=== PATIENT | male | born 1945 | race Caucasian/White ===

== ENCOUNTER 2019-03-08 12:09 | Observation (INO) | payer OTHER ==
[~2019-03-08] VITALS: Ht 172.7 cm; Wt 68.0 kg
--- OUTSIDE RECORDS SUMMARY | 2019-03-08 12:15 | XMS REPORT ---
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 Allergies, Adverse Reactions, Alerts Allergy Name Allergy Type Status Severity Reaction(s) Onset Date Inactive Date Treating Clinician Comments Penicillins DA Active [place] 2016-01-02 00:00:00 adhesive DA Active U 2016-01-02 00:00:00 levofloxacin DA Active U 2016-01-02 00:00:00 Medications This patient has no known medications. Encounters Start Date/Time End Date/Time Encounter Type Admission Type Attending Clinicians Care Facility Care Department Encounter ID 2019-02-09 00:57:35 Inpatient [facility] [id number] 2019-01-23 13:25:34 Inpatient [facility] [id number] 2019-01-21 17:51:54 Inpatient [facility] [id number] 2019-01-21 12:46:30 Inpatient [facility] [id number] 2017-11-20 01:59:05 Inpatient [facility] [id number] 2019-03-27 00:00:00 2019-03-27 00:00:00 Outpatient [facility] [id number] 2019-03-06 00:00:00 2019-03-06 00:00:00 Outpatient [facility] [id number] 2019-02-08 20:44:40 2019-02-08 20:44:40 Emergency [facility] [id number] 2019-02-08 19:40:48 2019-02-08 19:40:48 Inpatient [facility] [id number] 2019-02-08 00:00:00 2019-02-08 00:00:00 Emergency [facility] [id number] 2019-02-05 08:41:04 2019-02-05 08:41:04 Emergency [facility] [id number] 2019-02-05 07:55:05 2019-02-05 07:55:05 Emergency [facility] [id number] 2019-01-21 16:26:05 2019-01-21 16:26:05 Emergency [facility] [id number] 2019-01-21 12:58:30 2019-01-21 12:58:[address] [facility] [id number] Results Test Description Test Time Test Comments Text Results Atomic Results Result Comments POCT-GLUCOSE METER 2019-03-05 18:54:00 POC-GLUCOSE METER (BEAKER) (test owcs=6399) 140 mg/dL 70-110 : TESTED AT [address], [address]: Assembler Convertible Top/Manufactured Buildings Supervisor [id number] for Edilson Early BASIC METABOLIC [id number] 08:07:00* Test Item Value Reference Range Comments SODIUM (BEAKER) (test rmdj=783) 135 meq/L 136-145 POTASSIUM (BEAKER) (test vwij=022) 4.6 meq/L 3.5-5.1 CHLORIDE (BEAKER) (test pbvr=377) 101 meq/L 98-107 CO2 (BEAKER) (test uzzf=670) 27 meq/L 22-29 BLOOD UREA NITROGEN (BEAKER) (test bunp=591) 11 mg/dL 7-21 CREATININE (BEAKER) (test dkcw=606) 0.71 mg/dL 0.57-1.25 GLUCOSE RANDOM (BEAKER) (test rmbx=322) 120 mg/dL 70-105 CALCIUM (BEAKER) (test psfq=486) 9.0 mg/dL 8.4-10.2 EGFR (BEAKER) (test ywxk=2031) 109 mL/min/1.73 sq m ESTIMATED GFR IS NOT ACCURATE CREATININE CLEARANCE IN PREDICTING GLOMERULAR FILTRATION RATE. ESTIMATED GFR IS NOT APPLICABLE FOR DIALYSIS PATIENTS. CBC W/PLT COUNT & AUTO [id number] 06:21:00* Test Item Value Reference Range Comments WHITE BLOOD CELL COUNT (BEAKER) (test ayqt=309) 6.5 K/ L 3.5-10.5 RED BLOOD CELL COUNT (BEAKER) (test cxhw=421) 3.61 M/ L 4.63-6.08 HEMOGLOBIN (BEAKER) (test xoch=842) 10.4 GM/DL 13.7-17.5 HEMATOCRIT (BEAKER) (test rjcg=859) 32.2 % 40.1-51.0 MEAN CORPUSCULAR VOLUME (BEAKER) (test vflo=150) 89.2 fL 79.0-92.2 MEAN CORPUSCULAR HEMOGLOBIN (BEAKER) (test xtgw=667) 28.8 pg 25.7-32.2 MEAN CORPUSCULAR HEMOGLOBIN CONC (BEAKER) (test mmlf=154) 32.3 GM/DL 32.3-36.5 RED CELL DISTRIBUTION WIDTH (BEAKER) (test wakv=377) 15.1 % 11.6-14.4 PLATELET COUNT (BEAKER) (test ylzb=973) 229 K/CU MM 150-450 MEAN PLATELET VOLUME (BEAKER) (test labd=719) 10.0 fL 9.4-12.4 NUCLEATED RED BLOOD CELLS (BEAKER) (test yzwj=335) 0 /100 WBC 0-0 NEUTROPHILS RELATIVE PERCENT (BEAKER) (test bppv=225) 50 % LYMPHOCYTES RELATIVE PERCENT (BEAKER) (test uyqr=579) 36 % MONOCYTES RELATIVE PERCENT (BEAKER) (test czml=318) 8 % EOSINOPHILS RELATIVE PERCENT (BEAKER) (test pqne=219) 5 % BASOPHILS RELATIVE PERCENT (BEAKER) (test mkza=889) 1 % NEUTROPHILS ABSOLUTE COUNT (BEAKER) (test oixz=835) 3.29 K/ L 1.78-5.38 LYMPHOCYTES ABSOLUTE COUNT (BEAKER) (test mrve=098) 2.34 K/ L 1.32-3.57 MONOCYTES ABSOLUTE COUNT (BEAKER) (test udev=595) 0.49 K/ L 0.30-0.82 EOSINOPHILS ABSOLUTE COUNT (BEAKER) (test uhzf=680) 0.34 K/ L 0.04-0.54 BASOPHILS ABSOLUTE COUNT (BEAKER) (test olow=450) 0.04 K/ L 0.01-0.08 IMMATURE GRANULOCYTES-RELATIVE PERCENT (BEAKER) (test fzas=8737) 1 % 0-1 POCT-GLUCOSE [id number] 21:22:00* Test Item Value Reference Range Comments POC-GLUCOSE METER (BEAKER) (test ylva=1671) 164 mg/dL 70-110 : TESTED AT [facility] [address] [facility], [address]: Assembler Convertible Top/Manufactured Buildings Supervisor [id number] for DESTINI FRIAS POCT-GLUCOSE [id number] 18:14:00* Test Item Value Reference Range Comments POC-GLUCOSE METER (BEAKER) (test lsqn=9813) 127 mg/dL 70-110 : TESTED AT [address], [address]: Assembler Convertible Top/Manufactured Buildings Supervisor [id number] for STACEY MCCRACKEN POCT-GLUCOSE [id number] 13:00:00* Test Item Value Reference Range Comments POC-GLUCOSE METER (BEAKER) (test qzfp=0099) 93 mg/dL 70-110 : TESTED AT [address], [address]: Assembler Convertible Top/Manufactured Buildings Supervisor [id number] for Edilson Early POCT-GLUCOSE [id number] 08:04:00* Test Item Value Reference Range Comments POC-GLUCOSE METER (BEAKER) (test qhzw=0271) 122 mg/dL 70-110 : TESTED AT [address], [address]: Assembler Convertible Top/Manufactured Buildings Supervisor [id number] for Edilson Early HEPATIC FUNCTION [id number] 03:04:00* Test Item Value Reference Range Comments TOTAL PROTEIN (BEAKER) (test apoj=890) 7.0 gm/dL 6.0-8.3 ALBUMIN (BEAKER) (test uwqp=0489) 3.7 g/dL 3.5-5.0 BILIRUBIN TOTAL (BEAKER) (test tjfq=944) 0.2 mg/dL 0.2-1.2 BILIRUBIN DIRECT (BEAKER) (test rits=351) 0.1 mg/dL 0.1-0.5 ALKALINE PHOSPHATASE (BEAKER) (test aplu=009) 79 U/L 40-150 AST (SGOT) (BEAKER) (test hdgp=248) 11 U/L 5-34 ALT (SGPT) (BEAKER) (test eece=630) 6 U/L 6-55 BASIC METABOLIC [id number] 03:04:00* Test Item Value Reference Range Comments SODIUM (BEAKER) (test vbht=371) 138 meq/L 136-145 POTASSIUM (BEAKER) (test pqzl=197) 4.1 meq/L 3.5-5.1 CHLORIDE (BEAKER) (test mvxh=623) 103 meq/L 98-107 CO2 (BEAKER) (test blar=312) 27 meq/L 22-29 BLOOD UREA NITROGEN (BEAKER) (test ldfb=499) 10 mg/dL 7-21 CREATININE (BEAKER) (test mgnz=531) 0.71 mg/dL 0.57-1.25 GLUCOSE RANDOM (BEAKER) (test uyhc=995) 107 mg/dL 70-105 CALCIUM (BEAKER) (test ehir=577) 8.9 mg/dL 8.4-10.2 EGFR (BEAKER) (test hjvi=5045) 109 mL/min/1.73 sq m ESTIMATED GFR IS NOT ACCURATE CREATININE CLEARANCE IN PREDICTING GLOMERULAR FILTRATION RATE. ESTIMATED GFR IS NOT APPLICABLE FOR DIALYSIS PATIENTS. CBC W/PLT COUNT & AUTO [id number] 02:46:00* Test Item Value Reference Range Comments WHITE BLOOD CELL COUNT (BEAKER) (test yknd=818) 7.6 K/ L 3.5-10.5 RED BLOOD CELL COUNT (BEAKER) (test tihs=083) 3.86 M/ L 4.63-6.08 HEMOGLOBIN (BEAKER) (test hfaq=330) 11.1 GM/DL 13.7-17.5 HEMATOCRIT (BEAKER) (test vhit=608) 34.1 % 40.1-51.0 MEAN CORPUSCULAR VOLUME (BEAKER) (test qqxr=426) 88.3 fL 79.0-92.2 MEAN CORPUSCULAR HEMOGLOBIN (BEAKER) (test kjld=439) 28.8 pg 25.7-32.2 MEAN CORPUSCULAR HEMOGLOBIN CONC (BEAKER) (test ybey=152) 32.6 GM/DL 32.3-36.5 RED CELL DISTRIBUTION WIDTH (BEAKER) (test gqco=864) 15.3 % 11.6-14.4 PLATELET COUNT (BEAKER) (test odzu=989) 253 K/CU MM 150-450 MEAN PLATELET VOLUME (BEAKER) (test ypgx=131) 9.1 fL 9.4-12.4 NUCLEATED RED BLOOD CELLS (BEAKER) (test jyja=416) 0 /100 WBC 0-0 NEUTROPHILS RELATIVE PERCENT (BEAKER) (test vbyj=423) 57 % LYMPHOCYTES RELATIVE PERCENT (BEAKER) (test sler=418) 31 % MONOCYTES RELATIVE PERCENT (BEAKER) (test cisz=487) 7 % EOSINOPHILS RELATIVE PERCENT (BEAKER) (test ayhs=406) 5 % BASOPHILS RELATIVE PERCENT (BEAKER) (test clqm=355) 0 % NEUTROPHILS ABSOLUTE COUNT (BEAKER) (test salh=417) 4.33 K/ L 1.78-5.38 LYMPHOCYTES ABSOLUTE COUNT (BEAKER) (test bxgk=349) 2.36 K/ L 1.32-3.57 MONOCYTES ABSOLUTE COUNT (BEAKER) (test pcbc=486) 0.49 K/ L 0.30-0.82 EOSINOPHILS ABSOLUTE COUNT (BEAKER) (test dsyw=305) 0.34 K/ L 0.04-0.54 BASOPHILS ABSOLUTE COUNT (BEAKER) (test qzxu=586) 0.03 K/ L 0.01-0.08 IMMATURE GRANULOCYTES-RELATIVE PERCENT (BEAKER) (test bpqn=8528) 0 % 0-1 POCT-GLUCOSE [id number] 21:42:00* Test Item Value Reference Range Comments POC-GLUCOSE METER (BEAKER) (test krnn=6670) 193 mg/dL 70-110 : TESTED AT [address], [address]: Assembler Convertible Top/Manufactured Buildings Supervisor [id number] for DESTINI FRIAS POCT-GLUCOSE [id number] 17:35:00* Test Item Value Reference Range Comments POC-GLUCOSE METER (BEAKER) (test tkrk=3523) 70 mg/dL 70-110 : TESTED AT [address], [address]: Assembler Convertible Top/Manufactured Buildings Supervisor [id number] for Sharath Edilson RAPID DRUG SCREEN, [id number] 15:07:00* Test Item Value Reference Range Comments BARBITURATE URINE (BEAKER) (test mmpw=861) Negative Negative BENZODIAZEPINE SCREEN URINE (BEAKER) (test pdpm=857) Positive Negative COCAINE (METAB.) SCREEN (BEAKER) (test xwaf=8467) Negative Negative METHADONE SCREEN (BEAKER) (test unpu=3844) Negative Negative OPIATE SCREEN URINE (BEAKER) (test ukyz=806) Positive Negative CANNABINOID SCREEN URINE (BEAKER) (test hxdx=322) Negative Negative AMPH/METHAMPH SCREEN (BEAKER) (test gxcp=0845) Negative Negative PHENCYCLIDINE SCREEN URINE (BEAKER) (test ullm=681) Negative Negative DRUG CUTOFF CONC.Cocaine 300 ng/mL Cannabinoid 50 ng/mLBenzodiazepine 200 ng/mLBarbiturate 200 ng/mLPh encyclidine 25 ng/mLOpiate 300 ng/mLMethadone 300 ng/mLAmphetamine/ 1000 ng/mL MethamphetamineThis assay provides an unconfirmed qualitative test result for the clinical management of patients in emergency situations. Chain of custody not maintained. Some lsry-fbk-xhegmlq me dications, as well as adulterants, may cause inaccurate results. Clinical correl ation should be applied. A more comprehensive drug screen or confirmation of a d etected drug may be performed upon request.URINALYSIS W/ REFLEX URINE CULTURE 2019-03-03 14:46:00* Test Item Value Reference Range Comments COLOR (BEAKER) (test kpkf=066) Light Yellow CLARITY (BEAKER) (test ygbi=355) Hazy SPECIFIC GRAVITY UA (BEAKER) (test ybaa=879) 1.010 1.001-1.035 PH UA (BEAKER) (test zbuj=995) 5.5 5.0-8.0 PROTEIN UA (BEAKER) (test yxvv=596) Negative Negative GLUCOSE UA (BEAKER) (test jauv=521) Negative Negative KETONES UA (BEAKER) (test djpw=448) Negative Negative BILIRUBIN UA (BEAKER) (test hrmr=774) Negative Negative BLOOD UA (BEAKER) (test dstl=125) Negative Negative NITRITE UA (BEAKER) (test wryn=031) Positive Negative LEUKOCYTE ESTERASE UA (BEAKER) (test eswe=784) Large Negative UROBILINOGEN UA (BEAKER) (test mkny=718) 0.2 mg/dL 0.2-1.0 RBC UA (BEAKER) (test ajxu=194) 4 /HPF WBC UA (BEAKER) (test hqnf=595) 65 /HPF SOURCE(BEAKER) (test xbsd=7699) TROPONIN [id number] 13:23:00* Test Item Value Reference Range Comments TROPONIN I (BEAKER) (test znri=124) < ng/mL 0.00-0.03 Troponin I (TnI) levels must be interpreted in the context of the presenting sym ptoms and the clinical findings. Elevated TnI levels indicate myocardial damage, but are not specific for ischemic heart disease. Elevated TnI levels are seen in patients with other cardiac conditions (including myocarditis and congestive h eart failure), and slight TnI elevations occur in patients with other conditions , including sepsis, renal failure, acidosis, acute neurological disease, and per sistent tachyarrhythmia.[id number] 13:16:00* Test Item Value Reference Range Comments MAGNESIUM (BEAKER) (test jvcj=488) 1.4 mg/dL 1.6-2.6 BASIC METABOLIC [id number] 13:16:00* Test Item Value Reference Range Comments SODIUM (BEAKER) (test yozk=089) 138 meq/L 136-145 POTASSIUM (BEAKER) (test nqoq=965) 4.5 meq/L 3.5-5.1 CHLORIDE (BEAKER) (test lnbv=028) 104 meq/L 98-107 CO2 (BEAKER) (test uhnr=279) 30 meq/L 22-29 BLOOD UREA NITROGEN (BEAKER) (test vlnq=547) 11 mg/dL 7-21 CREATININE (BEAKER) (test abfn=883) 0.80 mg/dL 0.57-1.25 GLUCOSE RANDOM (BEAKER) (test sonz=693) 117 mg/dL 70-105 CALCIUM (BEAKER) (test xfgz=618) 9.3 mg/dL 8.4-10.2 EGFR (BEAKER) (test yaoj=4836) 95 mL/min/1.73 sq m ESTIMATED GFR IS NOT ACCURATE CREATININE CLEARANCE IN PREDICTING GLOMERULAR FILTRATION RATE. ESTIMATED GFR IS NOT APPLICABLE FOR DIALYSIS PATIENTS. CT, BRAIN, WITHOUT [id number] 12:54:00Reason for exam:->headacheWhat is the patient's sedation requirement?->No SedationFINAL REPORT CT, BRAIN, WITHOUT CONTRAST INDICATION: headacheWEAKNESS TECHNIQUE: Noncontrast axial imaging was obtained from the vertex to the skull base. Axial images were reconstructed using a bone algorithm. DOSE REDUCTION: Dose modulation, iterative reconstruction, and/or weight-based adjustment of the mA/kV was utilized to reduce the radiation dose to as low as reasonably achievable. COMPARISON: CT 06/10/2018 FINDINGS: Intracranial: Exam is degraded by motion. Generalized cerebral atrophy with ex vacuo dilatation of the ventricular system proportionate to sulci. Scattered foci of hypoattenuation within the periventricular and subcortical white matter are a nonspecific finding commonly attributed to chronic small vessel ischemic disease. No intracranial hemorrhage or abnormal extra-axial collection. No evidence of acute territorial infarct. No mass effect. No hydrocephalus. Osseous structures: No fracture. No suspicious l esion. Paranasal sinuses and mastoid air cells: No evidence of sinusitis. Mastoi ds are clear. Orbital contents: Globes are intact. IMPRESSION: Motion degraded e xam. No acute intracranial hemorrhage or territorial infarct. If there is persis tent clinical concern for intracranial pathology, MR examination is recommended for further characterization. Signed: Cindi Bryna Verified Date/Time : 03/03/2019 12:54:53 Electronically signed by: CINDI BRYAN MD o n 03/03/2019 12:54 PM B-TYPE NATRIURETIC FACTOR (BNP)2019-03-03 12:48:00* Test Item Value Reference Range Comments B-TYPE NATRIURETIC PEPTIDE (BEAKER) (test ijbz=311) 60 pg/mL 0-100 RAD, CHEST, 1 VIEW, NON [id number] 12:37:00Reason for exam:->GENERALIZED WEAKNESS, NOT ASSOCIATED WITH EXTREMITIESFINAL REPORT INDICATION: GENERALIZED WEAKNESS, NOT ASSOCIATED WITH EXTREMITIES COMPARISON: June 22, 2018 TECHNIQUE: Single frontal view of the chest. FINDINGS: Lungs and pleura: Minimal bilateral subsegmental atelectasis No effusion.Heart and mediastinum: Normal heart size. Unremarkable mediastinal contours.Osseous structures: No acute abnormality.Other: None. IMPRESSION: No acute intrathoracic abnormality. Signed: Blanca Reyes Verified Date/Time: 03/03/2019 12:37:45 Reading Location: [facility] Radiology Reading Room -LACTIC ACID, [id number] 12:23:00* Test Item Value Reference Range Comments POC-LACTIC ACID, VENOUS (BEAKER) (test byps=1843) 1.7 mmol/L 0.9-1.7 TESTED AT [facility] [address] [facility] [address] CBC W/PLT COUNT & AUTO [id number] 12:21:00* Test Item Value Reference Range Comments WHITE BLOOD CELL COUNT (BEAKER) (test zvvu=640) 10.9 K/ L 3.5-10.5 RED BLOOD CELL COUNT (BEAKER) (test vuwd=869) 3.86 M/ L 4.63-6.08 HEMOGLOBIN (BEAKER) (test rqpj=024) 11.2 GM/DL 13.7-17.5 HEMATOCRIT (BEAKER) (test jvli=358) 34.5 % 40.1-51.0 MEAN CORPUSCULAR VOLUME (BEAKER) (test qagg=783) 89.4 fL 79.0-92.2 MEAN CORPUSCULAR HEMOGLOBIN (BEAKER) (test luwy=023) 29.0 pg 25.7-32.2 MEAN CORPUSCULAR HEMOGLOBIN CONC (BEAKER) (test cfgf=983) 32.5 GM/DL 32.3-36.5 RED CELL DISTRIBUTION WIDTH (BEAKER) (test bfxd=424) 15.5 % 11.6-14.4 PLATELET COUNT (BEAKER) (test rcwh=089) 270 K/CU MM 150-450 MEAN PLATELET VOLUME (BEAKER) (test ojpu=938) 9.4 fL 9.4-12.4 NUCLEATED RED BLOOD CELLS (BEAKER) (test iucc=629) 0 /100 WBC 0-0 NEUTROPHILS RELATIVE PERCENT (BEAKER) (test tqtm=737) 74 % LYMPHOCYTES RELATIVE PERCENT (BEAKER) (test ekdi=437) 18 % MONOCYTES RELATIVE PERCENT (BEAKER) (test kndc=523) 5 % EOSINOPHILS RELATIVE PERCENT (BEAKER) (test dptf=660) 2 % BASOPHILS RELATIVE PERCENT (BEAKER) (test pdrc=959) 0 % NEUTROPHILS ABSOLUTE COUNT (BEAKER) (test rmda=589) 8.08 K/ L 1.78-5.38 LYMPHOCYTES ABSOLUTE COUNT (BEAKER) (test iimn=381) 2.01 K/ L 1.32-3.57 MONOCYTES ABSOLUTE COUNT (BEAKER) (test jbxz=728) 0.52 K/ L 0.30-0.82 EOSINOPHILS ABSOLUTE COUNT (BEAKER) (test pchz=010) 0.24 K/ L 0.04-0.54 BASOPHILS ABSOLUTE COUNT (BEAKER) (test dpym=942) 0.03 K/ L 0.01-0.08 IMMATURE GRANULOCYTES-RELATIVE PERCENT (BEAKER) (test mdsi=8520) 0 % 0-1 B-TYPE NATRIURETIC [id number] 01:44:00* Test Item Value Reference Range Comments B-TYPE NATRIURETIC PEPTIDE (test code=BNP) 41.01 pgram/mL 0-100 BASIC METABOLIC [id number] 01:25:00* Test Item Value Reference Range Comments SODIUM (test code=NA) 138 mmol/L 136-145 POTASSIUM (test code=K) 3.8 mmol/L 3.5-5.1 CHLORIDE (test code=CL) 104.0 mmol/L 98-107 CARBON DIOXIDE (test code=CO2) 29.0 mmol/L 21-32 ANION GAP (test code=GAP) 8.8 10-20 GLUCOSE (test code=GLU) 140 mg/dL 74-106 BLOOD UREA NITROGEN (test code=BUN) 9 mg/dL 7-18 GLOMERULAR FILTRATION RATE (test code=GFR) > 60 mL/min >=60 Estimated GFR by using Modified MDRD formula.Chronic kidney disease is defined as either kidney damageor GFR <60 mL/min/1.73 m2 for >3 months. CREATININE (test code=CREAT) 0.90 mg/dL 0.7-1.3 BUN/CREATININE RATIO (test code=BUN/CREA) 10.0 10-20 CALCIUM (test code=CA) 8.4 mg/dL 8.5-10.1 [id number] 01:25:00* Test Item Value Reference Range Comments TROPONIN-I (test code=TROPI) <0.015 ng/mL 0-0.045 BASIC METABOLIC [id number] 01:15:00* Test Item Value Reference Range Comments SODIUM (test code=NA) 138 mmol/L 136-145 POTASSIUM (test code=K) 3.8 mmol/L 3.5-5.1 CHLORIDE (test code=CL) 104.0 mmol/L 98-107 CARBON DIOXIDE (test code=CO2) mmol/L 21-32 ANION GAP (test code=GAP) 10-20 GLUCOSE (test code=GLU) mg/dL 74-106 BLOOD UREA NITROGEN (test code=BUN) mg/dL 7-18 GLOMERULAR FILTRATION RATE (test code=GFR) mL/min >=60 CREATININE (test code=CREAT) mg/dL 0.7-1.3 BUN/CREATININE RATIO (test code=BUN/CREA) 10-20 CALCIUM (test code=CA) mg/dL 8.5-10.1 [id number] 01:15:00* Test Item Value Reference Range Comments TROPONIN-I (test code=TROPI) ng/mL 0-0.045 PROTHROMBIN [id number] 01:13:00* Test Item Value Reference Range Comments PROTHROMBIN TIME PATIENT (test code=PTP) 12.1 seconds 9.0-14.0 INTERNATIONAL NORMAL RATIO (test code=INR) 1.0 0.8-1.2 The therapeutic range for oral anticoagulant therapy formost indications is an international normalized ratio (INR)of between 2.0 and 3.0. The recommended therapeutic INRrange for various clinical situations is listed below: Clinical Situation INR range Pulmonary e mbolism treatment (2.0-3.0)Venous thrombosis treatmentVenous thrombosis prophylaxis (high risk surgery)Prevention of systemic embolism from: Acute myocardial infarction Valvular heart disease Atrial fibrillation Mechanical prosthetic heart valves (2.5-3.5) IS PATIENT ON ANTICOAGULANTS? NTHROMBOPLASTIN TIME [id number] 01:13:00* Test Item Value Reference Range Comments THROMBOPLASTIN TIME PARTIAL (test code=PTT) 32.0 seconds 25.0-36.5 IS PATIENT ON ANTICOAGULANTS? NCBC W/O [id number] 01:01:00* Test Item Value Reference Range Comments WHITE BLOOD CELL (test code=WBC) 9.0 K/mm3 4.5-12.5 RED BLOOD CELL (test code=RBC) 3.54 mill/mm3 4.0-5.8 HEMOGLOBIN (test code=HGB) 10.5 gram/dL 13.0-17.5 HEMATOCRIT (test code=HCT) 32.5 % 42.0-52.0 MEAN CELL VOLUME (test code=MCV) 91.8 fL 80-98 MEAN CELL HGB (test code=MCH) 29.7 picogram 27.0-33.0 MEAN CELL HGB CONCETRATION (test code=MCHC) 32.3 gram/dL 33.0-36.0 RED CELL DISTRIBUTION WIDTH (test code=RDW) 12.7 % 11.6-16.2 PLATELET COUNT (test code=PLT) 303 K/mm3 150-450 MEAN PLATELET VOLUME (test code=MPV) 9.6 fL 6.7-11.0 - XR CHEST 1 [id number] 00:44:00 FAX: Paolo Cunningham MD [place]: St: REG Name: MARLEN RODGERS [facility] : [birth year] Age/S: 73/M [address] [facility] Unit #: [id number] Loc: [place] [address] Phys: Paolo Cunningham MD Acct: [id number] Dis Date: Status: [facility] ER PHONE #: [phone] Exam Date: 01/14/2019 0035 FAX #: [phone] Reason: CHEST PAIN EXAMS: CPT CODE: [id number] XR CHEST 1 V 60701 DICTATION LOCATION: 8 HISTORY: Male, 73 years of age with CHEST PAIN EXAM: CHEST X- RAY, ONE VIEW COMPARISON: 12/05/2018 COMMENT: Frontal view of the chest is provided. There is chronic elevation of the right diaphragm. No focal infiltrate, consolidation, mass lesion, or effusion is seen. Cardiac silhouette is within normal limits. Sternotomy wires agai n noted. No acute bony abnormalities. IMPRESSION: No acute infil trate and no change since prior study. at 0044 Reported and signed b y: Odalys Malik MD CC: Paolo Cunningham MD Technologist: Marcus Deng RT(R) Trnscrd Date/Time/By: 01/14/2019 (0044) : By: JaredCLW Orig Print D/T: S: 01/14/2019 (0047) PAGE 1 Signed Report [id number] 08:44:00 * Test Item Value Reference Range Comments GLUBED (test code=GLUBED) 178 mg/dL 74-106 Performed by certified protective signal operator at [facility] [id number] 16:34:00* Test Item Value Reference Range Comments GLUBED (test code=GLUBED) 132 mg/dL 74-106 Performed by certified protective signal operator at [facility] [id number] 12:10:00* Test Item Value Reference Range Comments GLUBED (test code=GLUBED) 281 mg/dL 74-106 Performed by certified protective signal operator at [facility] BASIC METABOLIC [id number] 07:36:00* Test Item Value Reference Range Comments SODIUM (test code=NA) 139 mmol/L 136-145 POTASSIUM (test code=K) 4.2 mmol/L 3.5-5.1 CHLORIDE (test code=CL) 101.0 mmol/L 98-107 CARBON DIOXIDE (test code=CO2) 31.0 mmol/L 21-32 ANION GAP (test code=GAP) 11.2 10-20 GLUCOSE (test code=GLU) 170 mg/dL 74-106 BLOOD UREA NITROGEN (test code=BUN) 24 mg/dL 7-18 GLOMERULAR FILTRATION RATE (test code=GFR) > 60 mL/min >=60 Estimated GFR by using Modified MDRD formula.Chronic kidney disease is defined as either kidney damageor GFR <60 mL/min/1.73 m2 for >3 months. CREATININE (test code=CREAT) 0.90 mg/dL 0.7-1.3 BUN/CREATININE RATIO (test code=BUN/CREA) 26.7 10-20 CALCIUM (test code=CA) 9.4 mg/dL 8.5-10.1 BASIC METABOLIC [id number] 07:18:00* Test Item Value Reference Range Comments SODIUM (test code=NA) 139 mmol/L 136-145 POTASSIUM (test code=K) 4.2 mmol/L 3.5-5.1 CHLORIDE (test code=CL) 101.0 mmol/L 98-107 CARBON DIOXIDE (test code=CO2) mmol/L 21-32 ANION GAP (test code=GAP) 10-20 GLUCOSE (test code=GLU) mg/dL 74-106 BLOOD UREA NITROGEN (test code=BUN) mg/dL 7-18 GLOMERULAR FILTRATION RATE (test code=GFR) mL/min >=60 CREATININE (test code=CREAT) mg/dL 0.7-1.3 BUN/CREATININE RATIO (test code=BUN/CREA) 10-20 CALCIUM (test code=CA) mg/dL 8.5-10.1 [id number] 21:14:00* Test Item Value Reference Range Comments GLUBED (test code=GLUBED) 276 mg/dL 74-106 Performed by certified protective signal operator at [facility] [id number] 17:01:00* Test Item Value Reference Range Comments GLUBED (test code=GLUBED) 164 mg/dL 74-106 Performed by certified protective signal operator at [facility] [id number] 11:45:00* Test Item Value Reference Range Comments GLUBED (test code=GLUBED) 190 mg/dL 74-106 Performed by certified protective signal operator at [facility] CBC W/AUTO [id number] 10:30:00* Test Item Value Reference Range Comments WHITE BLOOD CELL (test code=WBC) 6.2 K/mm3 4.5-12.5 RED BLOOD CELL (test code=RBC) 3.45 mill/mm3 4.0-5.8 HEMOGLOBIN (test code=HGB) 10.7 gram/dL 13.0-17.5 HEMATOCRIT (test code=HCT) 33.4 % 42.0-52.0 MEAN CELL VOLUME (test code=MCV) 96.8 fL 80-98 MEAN CELL HGB (test code=MCH) 31.0 picogram 27.0-33.0 MEAN CELL HGB CONCETRATION (test code=MCHC) 32.0 gram/dL 33.0-36.0 RED CELL DISTRIBUTION WIDTH (test code=RDW) 12.6 % 11.6-16.2 RED CELL DISTRIBUTION WIDTH SD (test code=RDW-SD) 43.8 fL 37.0-51.0 PLATELET COUNT (test code=PLT) 247 K/mm3 150-450 MEAN PLATELET VOLUME (test code=MPV) 10.3 fL 6.7-11.0 NEUTROPHIL % (test code=NT%) 57.2 % 39.0-69.0 IMMATURE GRANULOCYTE % (test code=IG%) 0.3 % 0.0-5.0 LYMPHOCYTE % (test code=LY%) 29.7 % 25.0-55.0 MONOCYTE % (test code=MO%) 6.5 % 0.0-10.0 EOSINOPHIL % (test code=EO%) 5.5 % 0.0-5.0 BASOPHIL % (test code=BA%) 0.8 % 0.0-1.0 NUCLEATED RBC % (test code=NRBC%) 0.0 % 0-0 NEUTROPHIL # (test code=NT#) 3.52 K/mm3 1.8-7.7 IMMATURE GRANULOCYTE # (test code=IG#) 0.02 x10 3/uL 0-0.03 LYMPHOCYTE # (test code=LY#) 1.83 K/mm3 1.0-5.0 MONOCYTE # (test code=MO#) 0.40 K/mm3 0-0.8 EOSINOPHIL # (test code=EO#) 0.34 K/mm3 0.0-0.5 BASOPHIL # (test code=BA#) 0.05 K/mm3 0.0-0.2 NUCLEATED RBC # (test code=NRBC#) 0.00 K/mm3 0.0-0.1 BASIC METABOLIC [id number] 07:22:00* Test Item Value Reference Range Comments SODIUM (test code=NA) 139 mmol/L 136-145 POTASSIUM (test code=K) 4.5 mmol/L 3.5-5.1 CHLORIDE (test code=CL) 104.0 mmol/L 98-107 CARBON DIOXIDE (test code=CO2) 26.0 mmol/L 21-32 ANION GAP (test code=GAP) 13.5 10-20 GLUCOSE (test code=GLU) 159 mg/dL 74-106 BLOOD UREA NITROGEN (test code=BUN) 28 mg/dL 7-18 GLOMERULAR FILTRATION RATE (test code=GFR) > 60 mL/min >=60 Estimated GFR by using Modified MDRD formula.Chronic kidney disease is defined as either kidney damageor GFR <60 mL/min/1.73 m2 for >3 months. CREATININE (test code=CREAT) 1.00 mg/dL 0.7-1.3 BUN/CREATININE RATIO (test code=BUN/CREA) 29.5 10-20 CALCIUM (test code=CA) 9.1 mg/dL 8.5-10.1 [id number] 05:26:00* Test Item Value Reference Range Comments GLUBED (test code=GLUBED) 154 mg/dL 74-106 Performed by certified protective signal operator at [facility] [id number] 20:39:00* Test Item Value Reference Range Comments GLUBED (test code=GLUBED) 163 mg/dL 74-106 Performed by certified protective signal operator at [facility] [id number] 16:55:00* Test Item Value Reference Range Comments GLUBED (test code=GLUBED) 363 mg/dL 74-106 Performed by certified protective signal operator at [facility] [id number] 12:41:00* Test Item Value Reference Range Comments GLUBED (test code=GLUBED) 193 mg/dL 74-106 Performed by certified protective signal operator at [facility] [id number] 06:02:00* Test Item Value Reference Range Comments GLUBED (test code=GLUBED) 243 mg/dL 74-106 Performed by certified protective signal operator at [facility] [id number] 21:59:00* Test Item Value Reference Range Comments GLUBED (test code=GLUBED) 132 mg/dL 74-106 Performed by certified protective signal operator at [facility] [id number] 16:10:00* Test Item Value Reference Range Comments GLUBED (test code=GLUBED) 273 mg/dL 74-106 Performed by certified protective signal operator at [facility] [id number] 11:39:00* Test Item Value Reference Range Comments GLUBED (test code=GLUBED) 196 mg/dL 74-106 Performed by certified protective signal operator at [facility] [id number] 07:13:00* Test Item Value Reference Range Comments GLUBED (test code=GLUBED) 185 mg/dL 74-106 Performed by certified protective signal operator at [facility] CBC W/AUTO [id number] 06:24:00* Test Item Value Reference Range Comments WHITE BLOOD CELL (test code=WBC) 7.0 K/mm3 4.5-12.5 RED BLOOD CELL (test code=RBC) 3.28 mill/mm3 4.0-5.8 HEMOGLOBIN (test code=HGB) 10.3 gram/dL 13.0-17.5 HEMATOCRIT (test code=HCT) 31.6 % 42.0-52.0 MEAN CELL VOLUME (test code=MCV) 96.3 fL 80-98 MEAN CELL HGB (test code=MCH) 31.4 picogram 27.0-33.0 MEAN CELL HGB CONCETRATION (test code=MCHC) 32.6 gram/dL 33.0-36.0 RED CELL DISTRIBUTION WIDTH (test code=RDW) 12.6 % 11.6-16.2 RED CELL DISTRIBUTION WIDTH SD (test code=RDW-SD) 44.4 fL 37.0-51.0 PLATELET COUNT (test code=PLT) 288 K/mm3 150-450 MEAN PLATELET VOLUME (test code=MPV) 9.7 fL 6.7-11.0 NEUTROPHIL % (test code=NT%) 60.1 % 39.0-69.0 IMMATURE GRANULOCYTE % (test code=IG%) 0.9 % 0.0-5.0 LYMPHOCYTE % (test code=LY%) 26.8 % 25.0-55.0 MONOCYTE % (test code=MO%) 6.4 % 0.0-10.0 EOSINOPHIL % (test code=EO%) 5.1 % 0.0-5.0 BASOPHIL % (test code=BA%) 0.7 % 0.0-1.0 NUCLEATED RBC % (test code=NRBC%) 0.0 % 0-0 NEUTROPHIL # (test code=NT#) 4.23 K/mm3 1.8-7.7 IMMATURE GRANULOCYTE # (test code=IG#) 0.06 x10 3/uL 0-0.03 LYMPHOCYTE # (test code=LY#) 1.89 K/mm3 1.0-5.0 MONOCYTE # (test code=MO#) 0.45 K/mm3 0-0.8 EOSINOPHIL # (test code=EO#) 0.36 K/mm3 0.0-0.5 BASOPHIL # (test code=BA#) 0.05 K/mm3 0.0-0.2 NUCLEATED RBC # (test code=NRBC#) 0.00 K/mm3 0.0-0.1 MANUAL DIFF REQUIRED (test code=MDIFF) NO [id number] 20:21:00* Test Item Value Reference Range Comments GLUBED (test code=GLUBED) 187 mg/dL 74-106 [facility]formed [facility] certified protective signal [facility]~ [id number] 12:35:00* Test Item Value Reference Range Comments GLUBED (test code=GLUBED) 277 mg/dL 74-106 Performed by certified protective signal operator at [facility] BASIC METABOLIC [id number] 06:47:00* Test Item Value Reference Range Comments SODIUM (test code=NA) 141 mmol/L 136-145 POTASSIUM (test code=K) 4.9 mmol/L 3.5-5.1 CHLORIDE (test code=CL) 102.0 mmol/L 98-107 CARBON DIOXIDE (test code=CO2) 30.0 mmol/L 21-32 ANION GAP (test code=GAP) 13.9 10-20 GLUCOSE (test code=GLU) 201 mg/dL 74-106 BLOOD UREA NITROGEN (test code=BUN) 26 mg/dL 7-18 GLOMERULAR FILTRATION RATE (test code=GFR) > 60 mL/min >=60 Estimated GFR by using Modified MDRD formula.Chronic kidney disease is defined as either kidney damageor GFR <60 mL/min/1.73 m2 for >3 months. CREATININE (test code=CREAT) 0.90 mg/dL 0.7-1.3 BUN/CREATININE RATIO (test code=BUN/CREA) 28.2 10-20 CALCIUM (test code=CA) 9.0 mg/dL 8.5-10.1 BASIC METABOLIC [id number] 06:32:00* Test Item Value Reference Range Comments SODIUM (test code=NA) 141 mmol/L 136-145 POTASSIUM (test code=K) 4.9 mmol/L 3.5-5.1 CHLORIDE (test code=CL) 102.0 mmol/L 98-107 CARBON DIOXIDE (test code=CO2) mmol/L 21-32 ANION GAP (test code=GAP) 10-20 GLUCOSE (test code=GLU) mg/dL 74-106 BLOOD UREA NITROGEN (test code=BUN) mg/dL 7-18 GLOMERULAR FILTRATION RATE (test code=GFR) mL/min >=60 CREATININE (test code=CREAT) mg/dL 0.7-1.3 BUN/CREATININE RATIO (test code=BUN/CREA) 10-20 CALCIUM (test code=CA) mg/dL 8.5-10.1 [id number] 05:39:00* Test Item Value Reference Range Comments GLUBED (test code=GLUBED) 224 mg/dL 74-106 Performed by certified protective signal operator at [facility] [id number] 20:10:00* Test Item Value Reference Range Comments GLUBED (test code=GLUBED) 148 mg/dL 74-106 Performed by certified protective signal operator at [facility] [id number] 17:42:00* Test Item Value Reference Range Comments GLUBED (test code=GLUBED) 197 mg/dL 74-106 Performed by certified protective signal operator at [facility] [id number] 12:28:00* Test Item Value Reference Range Comments GLUBED (test code=GLUBED) 195 mg/dL 74-106 Performed by certified protective signal operator [facility]~ BASIC METABOLIC [id number] 06:28:00* Test Item Value Reference Range Comments SODIUM (test code=NA) 143 mmol/L 136-145 POTASSIUM (test code=K) 4.6 mmol/L 3.5-5.1 CHLORIDE (test code=CL) 105.0 mmol/L 98-107 CARBON DIOXIDE (test code=CO2) 32.0 mmol/L 21-32 ANION GAP (test code=GAP) 10.6 10-20 GLUCOSE (test code=GLU) 148 mg/dL 74-106 BLOOD UREA NITROGEN (test code=BUN) 27 mg/dL 7-18 GLOMERULAR FILTRATION RATE (test code=GFR) > 60 mL/min >=60 Estimated GFR by using Modified MDRD formula.Chronic kidney disease is defined as either kidney damageor GFR <60 mL/min/1.73 m2 for >3 months. CREATININE (test code=CREAT) 0.80 mg/dL 0.7-1.3 BUN/CREATININE RATIO (test code=BUN/CREA) 32.4 10-20 CALCIUM (test code=CA) 9.5 mg/dL 8.5-10.1 BASIC METABOLIC [id number] 06:22:00* Test Item Value Reference Range Comments SODIUM (test code=NA) 143 mmol/L 136-145 POTASSIUM (test code=K) 4.6 mmol/L 3.5-5.1 CHLORIDE (test code=CL) 105.0 mmol/L 98-107 CARBON DIOXIDE (test code=CO2) mmol/L 21-32 ANION GAP (test code=GAP) 10-20 GLUCOSE (test code=GLU) mg/dL 74-106 BLOOD UREA NITROGEN (test code=BUN) mg/dL 7-18 GLOMERULAR FILTRATION RATE (test code=GFR) mL/min >=60 CREATININE (test code=CREAT) mg/dL 0.7-1.3 BUN/CREATININE RATIO (test code=BUN/CREA) 10-20 CALCIUM (test code=CA) mg/dL 8.5-10.1 [id number] 05:40:00* Test Item Value Reference Range Comments GLUBED (test code=GLUBED) 151 mg/dL 74-106 Performed by certified protective signal operator at [facility] - XR FOOT 2 VIEWS [id number] 23:04:00 FAX: Harinder Pozo [phone] [place]: B St: ADM FAX: Maikol Hendrickson [facility] [phone] Name: MARLEN NOLAND [facility] : 1945 Age/S: 73/M [address] Unit #: [id number] Loc: V.2074 [address] [address] Phys: Harinder Basilio Acct: [id number] Dis Date: Status: ADM IN PHONE #: [phone] Exam Date: 12/08/2018 1823 FAX #: [phone] Reason: heel pain,r/o foreign body EXAMS: CPT CODE: [id number] XR FOOT [place] [address] Left foot 2 views Comparison study N 13 Clinical history heel pain evaluate for foreign body TECHNIQUE: AP and lateral views were obtained. There are no priors for comparison. FINDINGS: There is a small heel spur. There is arterial sclerosis. Mild degenerative changes are seen at the toes. There is no evidence of radiopaque or radiolucent foreign body in t he sole of the foot. IMPRESSION: No evidence o f foreign body. Electronically Signed by Morena Cruz M.D. on 2018 at 2304 Reported and signed by: Morena Cruz M.D. CC: Harinder Basilio; Maikol Hendrickson hnologist: RT Lashell(R Trnscrd Date/T rafael/By: 12/08/2018 (4543) : By: Terry Orig Print D/T: S: 9 (1418) PAGE 1 Signed Report [id number] 21:35:00* Test Item Value Reference Range Comments GLUBED (test code=GLUBED) 287 mg/dL 74-106 Performed by certified protective signal operator at [facility] [id number] 17:58:00* Test Item Value Reference Range Comments GLUBED (test code=GLUBED) 305 mg/dL 74-106 Performed by certified protective signal operator at [facility] [id number] 11:56:00* Test Item Value Reference Range Comments GLUBED (test code=GLUBED) 358 mg/dL 74-106 Performed by certified protective signal operator at [facility] BASIC METABOLIC [id number] 08:04:00* Test Item Value Reference Range Comments SODIUM (test code=NA) 142 mmol/L 136-145 POTASSIUM (test code=K) 4.3 mmol/L 3.5-5.1 CHLORIDE (test code=CL) 103.0 mmol/L 98-107 CARBON DIOXIDE (test code=CO2) 32.0 mmol/L 21-32 ANION GAP (test code=GAP) 11.3 10-20 GLUCOSE (test code=GLU) 197 mg/dL 74-106 BLOOD UREA NITROGEN (test code=BUN) 30 mg/dL 7-18 GLOMERULAR FILTRATION RATE (test code=GFR) > 60 mL/min >=60 Estimated GFR by using Modified MDRD formula.Chronic kidney disease is defined as either kidney damageor GFR <60 mL/min/1.73 m2 for >3 months. CREATININE (test code=CREAT) 0.90 mg/dL 0.7-1.3 BUN/CREATININE RATIO (test code=BUN/CREA) 33.4 10-20 CALCIUM (test code=CA) 9.3 mg/dL 8.5-10.1 BASIC METABOLIC [id number] 07:44:00* Test Item Value Reference Range Comments SODIUM (test code=NA) 142 mmol/L 136-145 POTASSIUM (test code=K) 4.3 mmol/L 3.5-5.1 CHLORIDE (test code=CL) 103.0 mmol/L 98-107 CARBON DIOXIDE (test code=CO2) mmol/L 21-32 ANION GAP (test code=GAP) 10-20 GLUCOSE (test code=GLU) mg/dL 74-106 BLOOD UREA NITROGEN (test code=BUN) mg/dL 7-18 GLOMERULAR FILTRATION RATE (test code=GFR) mL/min >=60 CREATININE (test code=CREAT) mg/dL 0.7-1.3 BUN/CREATININE RATIO (test code=BUN/CREA) 10-20 CALCIUM (test code=CA) mg/dL 8.5-10.1 [id number] 05:28:00* Test Item Value Reference Range Comments GLUBED (test code=GLUBED) 201 mg/dL 74-106 Performed by certified protective signal operator at [facility] [id number] 01:16:00* Test Item Value Reference Range Comments GLUBED (test code=GLUBED) 196 mg/dL 74-106 Performed by certified protective signal operator at [facility] [id number] 21:54:00* Test Item Value Reference Range Comments GLUBED (test code=GLUBED) 247 mg/dL 74-106 Performed by certified protective signal operator at [facility] [id number] 17:41:00* Test Item Value Reference Range Comments GLUBED (test code=GLUBED) 294 mg/dL 74-106 Performed by certified protective signal operator at [facility] [id number] 12:23:00* Test Item Value Reference Range Comments GLUBED (test code=GLUBED) 173 mg/dL 74-106 Performed by certified protective signal operator at [facility] [id number] 06:25:00* Test Item Value Reference Range Comments GLUBED (test code=GLUBED) 238 mg/dL 74-106 Performed by certified protective signal operator at [facility] BASIC METABOLIC [id number] 06:15:00* Test Item Value Reference Range Comments SODIUM (test code=NA) 138 mmol/L 136-145 POTASSIUM (test code=K) 4.2 mmol/L 3.5-5.1 CHLORIDE (test code=CL) 100.0 mmol/L 98-107 CARBON DIOXIDE (test code=CO2) 29.0 mmol/L 21-32 ANION GAP (test code=GAP) 13.2 10-20 GLUCOSE (test code=GLU) 254 mg/dL 74-106 BLOOD UREA NITROGEN (test code=BUN) 30 mg/dL 7-18 GLOMERULAR FILTRATION RATE (test code=GFR) > 60 mL/min >=60 Estimated GFR by using Modified MDRD formula.Chronic kidney disease is defined as either kidney damageor GFR <60 mL/min/1.73 m2 for >3 months. CREATININE (test code=CREAT) 1.00 mg/dL 0.7-1.3 BUN/CREATININE RATIO (test code=BUN/CREA) 30.0 10-20 CALCIUM (test code=CA) 9.0 mg/dL 8.5-10.1 [id number] 06:15:00* Test Item Value Reference Range Comments PHOSPHORUS (test code=PHOS) 2.9 mg/dL 2.5-4.9 [id number] 06:15:00* Test Item Value Reference Range Comments MAGNESIUM (test code=MAG) 1.8 mg/dL 1.8-2.4 CALCIUM [id number] 06:15:00* Test Item Value Reference Range Comments CALCIUM IONIZED (test code=ALIVIA) 1.24 mmol/L 1.12-1.32 BASIC METABOLIC [id number] 06:09:00* Test Item Value Reference Range Comments SODIUM (test code=NA) 138 mmol/L 136-145 POTASSIUM (test code=K) 4.2 mmol/L 3.5-5.1 CHLORIDE (test code=CL) 100.0 mmol/L 98-107 CARBON DIOXIDE (test code=CO2) 29.0 mmol/L 21-32 ANION GAP (test code=GAP) 13.2 10-20 GLUCOSE (test code=GLU) 254 mg/dL 74-106 BLOOD UREA NITROGEN (test code=BUN) 30 mg/dL 7-18 GLOMERULAR FILTRATION RATE (test code=GFR) > 60 mL/min >=60 Estimated GFR by using Modified MDRD formula.Chronic kidney disease is defined as either kidney damageor GFR <60 mL/min/1.73 m2 for >3 months. CREATININE (test code=CREAT) 1.00 mg/dL 0.7-1.3 BUN/CREATININE RATIO (test code=BUN/CREA) 30.0 10-20 CALCIUM (test code=CA) 9.0 mg/dL 8.5-10.1 [id number] 06:09:00* Test Item Value Reference Range Comments PHOSPHORUS (test code=PHOS) 2.9 mg/dL 2.5-4.9 [id number] 06:09:00* Test Item Value Reference Range Comments MAGNESIUM (test code=MAG) 1.8 mg/dL 1.8-2.4 CALCIUM [id number] 06:09:00* Test Item Value Reference Range Comments CALCIUM IONIZED (test code=ALIVIA) mmol/L 1.12-1.32 BASIC METABOLIC [id number] 06:03:00* Test Item Value Reference Range Comments SODIUM (test code=NA) 138 mmol/L 136-145 POTASSIUM (test code=K) 4.2 mmol/L 3.5-5.1 CHLORIDE (test code=CL) 100.0 mmol/L 98-107 CARBON DIOXIDE (test code=CO2) mmol/L 21-32 ANION GAP (test code=GAP) 10-20 GLUCOSE (test code=GLU) mg/dL 74-106 BLOOD UREA NITROGEN (test code=BUN) mg/dL 7-18 GLOMERULAR FILTRATION RATE (test code=GFR) mL/min >=60 CREATININE (test code=CREAT) mg/dL 0.7-1.3 BUN/CREATININE RATIO (test code=BUN/CREA) 10-20 CALCIUM (test code=CA) mg/dL 8.5-10.1 [id number] 06:03:00* Test Item Value Reference Range Comments PHOSPHORUS (test code=PHOS) mg/dL 2.5-4.9 [id number] 06:03:00* Test Item Value Reference Range Comments MAGNESIUM (test code=MAG) mg/dL 1.8-2.4 CALCIUM [id number] 06:03:00* Test Item Value Reference Range Comments CALCIUM IONIZED (test code=ALIVIA) mmol/L 1.12-1.32 [id number] 21:37:00* Test Item Value Reference Range Comments GLUBED (test code=GLUBED) 158 mg/dL 74-106 Performed by certified protective signal operator at [facility] UR PROTEIN/CREATININE [id number] 19:51:00* Test Item Value Reference Range Comments UR PROTEIN RANDOM (test code=PROTU) 16.0 mg/dL 0.0-11.9 Protein levels may be falsely elevated in patients withelevated level of aminoglycoside antibiotics in CSF and inhighly concentrated urine specimens. If false elevation issuspected, contact lab for alternated testing technique. UR CREATININE RANDOM (test code=CREATU) 102.0 mg/dL 30-125 PROTEIN/CREATININE RATIO (test code=P/CRATIO) 0.16 RATIO 0.0-0.20 UR PROTEIN/CREATININE [id number] 19:49:00* Test Item Value Reference Range Comments UR PROTEIN RANDOM (test code=PROTU) 16.0 mg/dL 0.0-11.9 Protein levels may be falsely elevated in patients withelevated level of aminoglycoside antibiotics in CSF and inhighly concentrated urine specimens. If false elevation issuspected, contact lab for alternated testing technique. UR CREATININE RANDOM (test code=CREATU) mg/dL 30-125 PROTEIN/CREATININE RATIO (test code=P/CRATIO) RATIO 0.0-0.20 [id number] 18:54:00* Test Item Value Reference Range Comments GLUBED (test code=GLUBED) 124 mg/dL 74-106 Performed by certified protective signal operator at [facility] [id number] 12:15:00* Test Item Value Reference Range Comments GLUBED (test code=GLUBED) 249 mg/dL 74-106 Performed by certified protective signal operator at [facility] BASIC METABOLIC [id number] 10:56:00* Test Item Value Reference Range Comments SODIUM (test code=NA) 142 mmol/L 136-145 POTASSIUM (test code=K) 3.7 mmol/L 3.5-5.1 CHLORIDE (test code=CL) 104.0 mmol/L 98-107 CARBON DIOXIDE (test code=CO2) 30.0 mmol/L 21-32 ANION GAP (test code=GAP) 11.7 10-20 GLUCOSE (test code=GLU) 183 mg/dL 74-106 BLOOD UREA NITROGEN (test code=BUN) 33 mg/dL 7-18 GLOMERULAR FILTRATION RATE (test code=GFR) > 60 mL/min >=60 Estimated GFR by using Modified MDRD formula.Chronic kidney disease is defined as either kidney damageor GFR <60 mL/min/1.73 m2 for >3 months. CREATININE (test code=CREAT) 1.00 mg/dL 0.7-1.3 BUN/CREATININE RATIO (test code=BUN/CREA) 33.0 10-20 CALCIUM (test code=CA) 9.5 mg/dL 8.5-10.1 COMPREHENSIVE METABOLIC [id number] 10:56:00* Test Item Value Reference Range Comments TOTAL PROTEIN (test code=PROT) 7.3 gram/dL 6.4-8.2 ALBUMIN (test code=ALB) 2.9 g/dL 3.4-5.0 GLOBULIN (test code=GLOB) 4.4 gram/dL 2.7-4.2 ALBUMIN/GLOBULIN RATIO (test code=A/G) 0.7 0.75-1.50 BILIRUBIN TOTAL (test code=BILT) 0.20 mg/dL 0.0-1.0 SGOT/AST (test code=AST) 11 IUnit/L 15-37 SGPT/ALT (test code=ALT) 13 IUnit/L 12-78 ALKALINE PHOSPHATASE TOTAL (test code=ALKP) 65 IUnit/L 45-117 Note change in reference range due to change in reagent. [id number] 10:56:00* Test Item Value Reference Range Comments PHOSPHORUS (test code=PHOS) 3.7 mg/dL 2.5-4.9 [id number] 10:56:00* Test Item Value Reference Range Comments MAGNESIUM (test code=MAG) 2.0 mg/dL 1.8-2.4 CALCIUM [id number] 10:56:00* Test Item Value Reference Range Comments CALCIUM IONIZED (test code=ALIVIA) 1.30 mmol/L 1.12-1.32 BASIC METABOLIC [id number] 10:49:00* Test Item Value Reference Range Comments SODIUM (test code=NA) 142 mmol/L 136-145 POTASSIUM (test code=K) 3.7 mmol/L 3.5-5.1 CHLORIDE (test code=CL) 104.0 mmol/L 98-107 CARBON DIOXIDE (test code=CO2) mmol/L 21-32 ANION GAP (test code=GAP) 10-20 GLUCOSE (test code=GLU) mg/dL 74-106 BLOOD UREA NITROGEN (test code=BUN) mg/dL 7-18 GLOMERULAR FILTRATION RATE (test code=GFR) mL/min >=60 CREATININE (test code=CREAT) mg/dL 0.7-1.3 BUN/CREATININE RATIO (test code=BUN/CREA) 10-20 CALCIUM (test code=CA) mg/dL 8.5-10.1 COMPREHENSIVE METABOLIC [id number] 10:49:00* Test Item Value Reference Range Comments TOTAL PROTEIN (test code=PROT) gram/dL 6.4-8.2 ALBUMIN (test code=ALB) g/dL 3.4-5.0 GLOBULIN (test code=GLOB) gram/dL 2.7-4.2 ALBUMIN/GLOBULIN RATIO (test code=A/G) 0.75-1.50 BILIRUBIN TOTAL (test code=BILT) mg/dL 0.0-1.0 SGOT/AST (test code=AST) IUnit/L 15-37 SGPT/ALT (test code=ALT) IUnit/L 12-78 ALKALINE PHOSPHATASE TOTAL (test code=ALKP) IUnit/L 45-117 [id number] 10:49:00* Test Item Value Reference Range Comments PHOSPHORUS (test code=PHOS) mg/dL 2.5-4.9 [id number] 10:49:00* Test Item Value Reference Range Comments MAGNESIUM (test code=MAG) mg/dL 1.8-2.4 CALCIUM [id number] 10:49:00* Test Item Value Reference Range Comments CALCIUM IONIZED (test code=ALIVIA) 1.30 mmol/L 1.12-1.32 BASIC METABOLIC [id number] 10:37:00* Test Item Value Reference Range Comments SODIUM (test code=NA) mmol/L 136-145 POTASSIUM (test code=K) mmol/L 3.5-5.1 CHLORIDE (test code=CL) mmol/L 98-107 CARBON DIOXIDE (test code=CO2) mmol/L 21-32 ANION GAP (test code=GAP) 10-20 GLUCOSE (test code=GLU) mg/dL 74-106 BLOOD UREA NITROGEN (test code=BUN) mg/dL 7-18 GLOMERULAR FILTRATION RATE (test code=GFR) mL/min >=60 CREATININE (test code=CREAT) mg/dL 0.7-1.3 BUN/CREATININE RATIO (test code=BUN/CREA) 10-20 CALCIUM (test code=CA) mg/dL 8.5-10.1 COMPREHENSIVE METABOLIC [id number] 10:37:00* Test Item Value Reference Range Comments TOTAL PROTEIN (test code=PROT) gram/dL 6.4-8.2 ALBUMIN (test code=ALB) g/dL 3.4-5.0 GLOBULIN (test code=GLOB) gram/dL 2.7-4.2 ALBUMIN/GLOBULIN RATIO (test code=A/G) 0.75-1.50 BILIRUBIN TOTAL (test code=BILT) mg/dL 0.0-1.0 SGOT/AST (test code=AST) IUnit/L 15-37 SGPT/ALT (test code=ALT) IUnit/L 12-78 ALKALINE PHOSPHATASE TOTAL (test code=ALKP) IUnit/L 45-117 [id number] 10:37:00* Test Item Value Reference Range Comments PHOSPHORUS (test code=PHOS) mg/dL 2.5-4.9 [id number] 10:37:00* Test Item Value Reference Range Comments MAGNESIUM (test code=MAG) mg/dL 1.8-2.4 CALCIUM [id number] 10:37:00* Test Item Value Reference Range Comments CALCIUM IONIZED (test code=ALIVIA) 1.30 mmol/L 1.12-1.32 CBC W/AUTO [id number] 10:12:00* Test Item Value Reference Range Comments WHITE BLOOD CELL (test code=WBC) 6.9 K/mm3 4.5-12.5 RED BLOOD CELL (test code=RBC) 3.48 mill/mm3 4.0-5.8 HEMOGLOBIN (test code=HGB) 10.6 gram/dL 13.0-17.5 HEMATOCRIT (test code=HCT) 32.7 % 42.0-52.0 MEAN CELL VOLUME (test code=MCV) 94.0 fL 80-98 MEAN CELL HGB (test code=MCH) 30.5 picogram 27.0-33.0 MEAN CELL HGB CONCETRATION (test code=MCHC) 32.4 gram/dL 33.0-36.0 RED CELL DISTRIBUTION WIDTH (test code=RDW) 12.5 % 11.6-16.2 RED CELL DISTRIBUTION WIDTH SD (test code=RDW-SD) 42.5 fL 37.0-51.0 PLATELET COUNT (test code=PLT) 281 K/mm3 150-450 MEAN PLATELET VOLUME (test code=MPV) 10.1 fL 6.7-11.0 NEUTROPHIL % (test code=NT%) 62.2 % 39.0-69.0 IMMATURE GRANULOCYTE % (test code=IG%) 0.6 % 0.0-5.0 LYMPHOCYTE % (test code=LY%) 24.1 % 25.0-55.0 MONOCYTE % (test code=MO%) 9.0 % 0.0-10.0 EOSINOPHIL % (test code=EO%) 3.2 % 0.0-5.0 BASOPHIL % (test code=BA%) 0.9 % 0.0-1.0 NUCLEATED RBC % (test code=NRBC%) 0.0 % 0-0 NEUTROPHIL # (test code=NT#) 4.28 K/mm3 1.8-7.7 IMMATURE GRANULOCYTE # (test code=IG#) 0.04 x10 3/uL 0-0.03 LYMPHOCYTE # (test code=LY#) 1.66 K/mm3 1.0-5.0 MONOCYTE # (test code=MO#) 0.62 K/mm3 0-0.8 EOSINOPHIL # (test code=EO#) 0.22 K/mm3 0.0-0.5 BASOPHIL # (test code=BA#) 0.06 K/mm3 0.0-0.2 NUCLEATED RBC # (test code=NRBC#) 0.00 K/mm3 0.0-0.1 MANUAL DIFF REQUIRED (test code=MDIFF) NO [id number] 07:19:00* Test Item Value Reference Range Comments GLUBED (test code=GLUBED) 201 mg/dL 74-106 Performed by certified protective signal operator at [facility] [id number] 22:31:00* Test Item Value Reference Range Comments GLUBED (test code=GLUBED) 157 mg/dL 74-106 Performed by certified protective signal operator at [facility] [id number] 16:27:00* Test Item Value Reference Range Comments GLUBED (test code=GLUBED) 163 mg/dL 74-106 Performed by certified protective signal operator at [facility] - US RETRO [id number] 15:13:00 Name: MARLEN NOLAND [facility] : 1945 Age/S: 73 / M [address] [facility] Unit #: [id number] Loc: [place] [address] Phys: Dhruv Whitehead MD Acct: [id number] Dis Date: Status: ADM IN PHONE #: [phone] Exam Date: 12/05/2018 1455 FAX #: [phone] Reason: eval size EXAMS: CPT CODE: [id number] US RETRO LTD 14988 REASON FOR EXAM: eval size EXAM ORDER DATE: 12/05/2018 11:12 AM Attending Andrea: Dhruv Whitehead MD PROCEDURE: - US RETRO LTD FINDINGS: The right kidney measures 12 x 5.2 cm. The cross-sectional thickness of the right renal cortex measured 1.5 cm. The left kidney measures 14 x 4.9 cm. The cross-sectional thickness of the left renal cortex measured 1 cm. There is no evidence of hydronephrosis. There is no evidence of nephrolithiasis. The urinary bladder is unremarkable IMPRESSION: 4.8 x 4.5 cm lobulated left renal cyst with internal septation. No other significant findings at 1513 Reported and signed by: Sundar Polk M.D. CC: Dhruv Whitehead MD; Maikol Hendrickson Technologist: SAL ROBISON(Madan),RDMS Trntxb Date/Time: 12/05/2018 (151) [email or web address] Orig Print D/T: S: 12/05/2018 (9117) Probe: PAGE 1 Signed Report [id number] 11:47:00* Test Item Value Reference Range Comments GLUBED (test code=GLUBED) 186 mg/dL 74-106 Performed by certified protective signal operator at [facility] - XR CHEST 1 [id number] 10:13:00 FAX: Tonie Mcintosh NP [phone] [place]: St: ADM FAX: Maikol Hendricksonh [phone] Name: MARLEN NOLAND [facility] : 1945 Age/S: 73/M [address] [facility] Unit #: [id number] Loc: V.S05 [place] [address] Phys: Tonie Mcintosh NP Acct: [id number] Dis Date: Status: ADM IN PHONE #: [phone] Exam Date: 12/05/2018 0948 FAX #: [phone] Reason: sob EXAMS: CPT CODE: [id number] XR CHEST 1 V 29107 REASON FOR EXAM: sob Exam Order Date: 12/05/2018 9:39 AM Ordering Andrea: Tonie Mcintosh NP PROCEDURE: - XR CHEST 1 V COMPARISON: AP chest x-ray December 03, 2018. FINDINGS: Postsurgical changes in the right upper lobe are redemonstrated. Elevation of the right hemidiaphragm and subsegmental atelectasis in the right lung base are again seen. Compared to the previous exam however the right lung is better aerated. Left lung base is also better aerated however there is residual opacity in the left retrocardiac space. Patient has been extubated and the enteric suction tube removed. 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 The mediastinal contours are within normal limits. Sternotomy wires and other musculoskeletal findings are stable in appearance. The visu alized upper abdomen is within normal limits. IMPRESSION : Improved aeration of the bilateral lung bases. There is residual bibas ilar subsegmental atelectasis. Superimposed consolidation cannot be excl uded. at 1013 Reported and signed by: Thor Davis MD CC: Miladys Mcintosh NP; Maikol Hendrickson Technologist: Marsha Arnold( R) Trnscrd Date/Time/By: 12/05/2018 (1013) : B y: [email or web address] Orig Print D/T: S: 12/05/2018 (1016) PAGE 1 Signed Report [id number] 08:07:00* Test Item Value Reference Range Comments GLUBED (test code=GLUBED) 176 mg/dL 74-106 Performed by certified protective signal operator at [facility] BASIC METABOLIC [id number] 06:36:00* Test Item Value Reference Range Comments SODIUM (test code=NA) 141 mmol/L 136-145 POTASSIUM (test code=K) 3.6 mmol/L 3.5-5.1 CHLORIDE (test code=CL) 105.0 mmol/L 98-107 CARBON DIOXIDE (test code=CO2) 30.0 mmol/L 21-32 ANION GAP (test code=GAP) 9.6 10-20 GLUCOSE (test code=GLU) 183 mg/dL 74-106 BLOOD UREA NITROGEN (test code=BUN) 23 mg/dL 7-18 GLOMERULAR FILTRATION RATE (test code=GFR) > 60 mL/min >=60 Estimated GFR by using Modified MDRD formula.Chronic kidney disease is defined as either kidney damageor GFR <60 mL/min/1.73 m2 for >3 months. CREATININE (test code=CREAT) 0.90 mg/dL 0.7-1.3 BUN/CREATININE RATIO (test code=BUN/CREA) 25.1 10-20 CALCIUM (test code=CA) 9.4 mg/dL 8.5-10.1 COMPREHENSIVE METABOLIC [id number] 06:36:00* Test Item Value Reference Range Comments TOTAL PROTEIN (test code=PROT) 6.9 gram/dL 6.4-8.2 ALBUMIN (test code=ALB) 2.7 g/dL 3.4-5.0 GLOBULIN (test code=GLOB) 4.2 gram/dL 2.7-4.2 ALBUMIN/GLOBULIN RATIO (test code=A/G) 0.6 0.75-1.50 BILIRUBIN TOTAL (test code=BILT) 0.30 mg/dL 0.0-1.0 SGOT/AST (test code=AST) 15 IUnit/L 15-37 SGPT/ALT (test code=ALT) 15 IUnit/L 12-78 ALKALINE PHOSPHATASE TOTAL (test code=ALKP) 67 IUnit/L 45-117 Note change in reference range due to change in reagent. [id number] 06:36:00* Test Item Value Reference Range Comments PHOSPHORUS (test code=PHOS) 3.3 mg/dL 2.5-4.9 [id number] 06:36:00* Test Item Value Reference Range Comments MAGNESIUM (test code=MAG) 1.9 mg/dL 1.8-2.4 CALCIUM [id number] 06:36:00* Test Item Value Reference Range Comments CALCIUM IONIZED (test code=ALIVIA) 1.32 mmol/L 1.12-1.32 BASIC METABOLIC [id number] 06:26:00* Test Item Value Reference Range Comments SODIUM (test code=NA) 141 mmol/L 136-145 POTASSIUM (test code=K) 3.6 mmol/L 3.5-5.1 CHLORIDE (test code=CL) 105.0 mmol/L 98-107 CARBON DIOXIDE (test code=CO2) mmol/L 21-32 ANION GAP (test code=GAP) 10-20 GLUCOSE (test code=GLU) mg/dL 74-106 BLOOD UREA NITROGEN (test code=BUN) mg/dL 7-18 GLOMERULAR FILTRATION RATE (test code=GFR) mL/min >=60 CREATININE (test code=CREAT) mg/dL 0.7-1.3 BUN/CREATININE RATIO (test code=BUN/CREA) 10-20 CALCIUM (test code=CA) mg/dL 8.5-10.1 COMPREHENSIVE METABOLIC [id number] 06:26:00* Test Item Value Reference Range Comments TOTAL PROTEIN (test code=PROT) gram/dL 6.4-8.2 ALBUMIN (test code=ALB) g/dL 3.4-5.0 GLOBULIN (test code=GLOB) gram/dL 2.7-4.2 ALBUMIN/GLOBULIN RATIO (test code=A/G) 0.75-1.50 BILIRUBIN TOTAL (test code=BILT) mg/dL 0.0-1.0 SGOT/AST (test code=AST) IUnit/L 15-37 SGPT/ALT (test code=ALT) IUnit/L 12-78 ALKALINE PHOSPHATASE TOTAL (test code=ALKP) IUnit/L 45-117 [id number] 06:26:00* Test Item Value Reference Range Comments PHOSPHORUS (test code=PHOS) mg/dL 2.5-4.9 [id number] 06:26:00* Test Item Value Reference Range Comments MAGNESIUM (test code=MAG) mg/dL 1.8-2.4 CALCIUM [id number] 06:26:00* Test Item Value Reference Range Comments CALCIUM IONIZED (test code=ALIVIA) 1.32 mmol/L 1.12-1.32 BASIC METABOLIC [id number] 06:25:00* Test Item Value Reference Range Comments SODIUM (test code=NA) 141 mmol/L 136-145 POTASSIUM (test code=K) 3.6 mmol/L 3.5-5.1 CHLORIDE (test code=CL) 105.0 mmol/L 98-107 CARBON DIOXIDE (test code=CO2) mmol/L 21-32 ANION GAP (test code=GAP) 10-20 GLUCOSE (test code=GLU) mg/dL 74-106 BLOOD UREA NITROGEN (test code=BUN) mg/dL 7-18 GLOMERULAR FILTRATION RATE (test code=GFR) mL/min >=60 CREATININE (test code=CREAT) mg/dL 0.7-1.3 BUN/CREATININE RATIO (test code=BUN/CREA) 10-20 CALCIUM (test code=CA) mg/dL 8.5-10.1 COMPREHENSIVE METABOLIC [id number] 06:25:00* Test Item Value Reference Range Comments TOTAL PROTEIN (test code=PROT) gram/dL 6.4-8.2 ALBUMIN (test code=ALB) g/dL 3.4-5.0 GLOBULIN (test code=GLOB) gram/dL 2.7-4.2 ALBUMIN/GLOBULIN RATIO (test code=A/G) 0.75-1.50 BILIRUBIN TOTAL (test code=BILT) mg/dL 0.0-1.0 SGOT/AST (test code=AST) IUnit/L 15-37 SGPT/ALT (test code=ALT) IUnit/L 12-78 ALKALINE PHOSPHATASE TOTAL (test code=ALKP) IUnit/L 45-117 [id number] 06:25:00* Test Item Value Reference Range Comments PHOSPHORUS (test code=PHOS) mg/dL 2.5-4.9 [id number] 06:25:00* Test Item Value Reference Range Comments MAGNESIUM (test code=MAG) mg/dL 1.8-2.4 CALCIUM [id number] 06:25:00* Test Item Value Reference Range Comments CALCIUM IONIZED (test code=ALIVIA) mmol/L 1.12-1.32 CBC W/AUTO [id number] 06:06:00* Test Item Value Reference Range Comments WHITE BLOOD CELL (test code=WBC) 7.3 K/mm3 4.5-12.5 RED BLOOD CELL (test code=RBC) 3.31 mill/mm3 4.0-5.8 HEMOGLOBIN (test code=HGB) 10.4 gram/dL 13.0-17.5 HEMATOCRIT (test code=HCT) 30.9 % 42.0-52.0 MEAN CELL VOLUME (test code=MCV) 93.4 fL 80-98 MEAN CELL HGB (test code=MCH) 31.4 picogram 27.0-33.0 MEAN CELL HGB CONCETRATION (test code=MCHC) 33.7 gram/dL 33.0-36.0 RED CELL DISTRIBUTION WIDTH (test code=RDW) 12.3 % 11.6-16.2 RED CELL DISTRIBUTION WIDTH SD (test code=RDW-SD) 42.5 fL 37.0-51.0 PLATELET COUNT (test code=PLT) 228 K/mm3 150-450 MEAN PLATELET VOLUME (test code=MPV) 10.0 fL 6.7-11.0 NEUTROPHIL % (test code=NT%) 69.9 % 39.0-69.0 IMMATURE GRANULOCYTE % (test code=IG%) 0.6 % 0.0-5.0 LYMPHOCYTE % (test code=LY%) 19.0 % 25.0-55.0 MONOCYTE % (test code=MO%) 6.9 % 0.0-10.0 EOSINOPHIL % (test code=EO%) 3.2 % 0.0-5.0 BASOPHIL % (test code=BA%) 0.4 % 0.0-1.0 NUCLEATED RBC % (test code=NRBC%) 0.0 % 0-0 NEUTROPHIL # (test code=NT#) 5.07 K/mm3 1.8-7.7 IMMATURE GRANULOCYTE # (test code=IG#) 0.04 x10 3/uL 0-0.03 LYMPHOCYTE # (test code=LY#) 1.38 K/mm3 1.0-5.0 MONOCYTE # (test code=MO#) 0.50 K/mm3 0-0.8 EOSINOPHIL # (test code=EO#) 0.23 K/mm3 0.0-0.5 BASOPHIL # (test code=BA#) 0.03 K/mm3 0.0-0.2 NUCLEATED RBC # (test code=NRBC#) 0.00 K/mm3 0.0-0.1 MANUAL DIFF REQUIRED (test code=MDIFF) NO [id number] 03:55:00* Test Item Value Reference Range Comments GLUBED (test code=GLUBED) 242 mg/dL 74-106 Performed by certified protective signal operator at [facility] [id number] 15:07:00* Test Item Value Reference Range Comments GLUBED (test code=GLUBED) 182 mg/dL 74-106 Performed by certified protective signal operator at [facility] [id number] 12:00:00* Test Item Value Reference Range Comments GLUBED (test code=GLUBED) 190 mg/dL 74-106 Performed by certified protective signal operator at [facility] BASIC METABOLIC [id number] 07:21:00* Test Item Value Reference Range Comments SODIUM (test code=NA) 140 mmol/L 136-145 POTASSIUM (test code=K) 4.0 mmol/L 3.5-5.1 CHLORIDE (test code=CL) 105.0 mmol/L 98-107 CARBON DIOXIDE (test code=CO2) 27.0 mmol/L 21-32 ANION GAP (test code=GAP) 12.0 10-20 GLUCOSE (test code=GLU) 149 mg/dL 74-106 BLOOD UREA NITROGEN (test code=BUN) 13 mg/dL 7-18 GLOMERULAR FILTRATION RATE (test code=GFR) > 60 mL/min >=60 Estimated GFR by using Modified MDRD formula.Chronic kidney disease is defined as either kidney damageor GFR <60 mL/min/1.73 m2 for >3 months. CREATININE (test code=CREAT) 0.70 mg/dL 0.7-1.3 BUN/CREATININE RATIO (test code=BUN/CREA) 18.2 10-20 CALCIUM (test code=CA) 9.6 mg/dL 8.5-10.1 COMPREHENSIVE METABOLIC [id number] 07:21:00* Test Item Value Reference Range Comments TOTAL PROTEIN (test code=PROT) 6.5 gram/dL 6.4-8.2 ALBUMIN (test code=ALB) 3.0 g/dL 3.4-5.0 GLOBULIN (test code=GLOB) 3.5 gram/dL 2.7-4.2 ALBUMIN/GLOBULIN RATIO (test code=A/G) 0.9 0.75-1.50 BILIRUBIN TOTAL (test code=BILT) 0.60 mg/dL 0.0-1.0 SGOT/AST (test code=AST) 25 IUnit/L 15-37 SGPT/ALT (test code=ALT) 15 IUnit/L 12-78 ALKALINE PHOSPHATASE TOTAL (test code=ALKP) 76 IUnit/L 45-117 Note change in reference range due to change in reagent. [id number] 07:21:00* Test Item Value Reference Range Comments PHOSPHORUS (test code=PHOS) 2.9 mg/dL 2.5-4.9 [id number] 07:21:00* Test Item Value Reference Range Comments MAGNESIUM (test code=MAG) 1.7 mg/dL 1.8-2.4 CALCIUM [id number] 07:21:00* Test Item Value Reference Range Comments CALCIUM IONIZED (test code=ALIVIA) 1.35 mmol/L 1.12-1.32 BASIC METABOLIC [id number] 07:06:00* Test Item Value Reference Range Comments SODIUM (test code=NA) 140 mmol/L 136-145 POTASSIUM (test code=K) 4.0 mmol/L 3.5-5.1 CHLORIDE (test code=CL) 105.0 mmol/L 98-107 CARBON DIOXIDE (test code=CO2) mmol/L 21-32 ANION GAP (test code=GAP) 10-20 GLUCOSE (test code=GLU) mg/dL 74-106 BLOOD UREA NITROGEN (test code=BUN) mg/dL 7-18 GLOMERULAR FILTRATION RATE (test code=GFR) mL/min >=60 CREATININE (test code=CREAT) mg/dL 0.7-1.3 BUN/CREATININE RATIO (test code=BUN/CREA) 10-20 CALCIUM (test code=CA) mg/dL 8.5-10.1 COMPREHENSIVE METABOLIC [id number] 07:06:00* Test Item Value Reference Range Comments TOTAL PROTEIN (test code=PROT) gram/dL 6.4-8.2 ALBUMIN (test code=ALB) g/dL 3.4-5.0 GLOBULIN (test code=GLOB) gram/dL 2.7-4.2 ALBUMIN/GLOBULIN RATIO (test code=A/G) 0.75-1.50 BILIRUBIN TOTAL (test code=BILT) mg/dL 0.0-1.0 SGOT/AST (test code=AST) IUnit/L 15-37 SGPT/ALT (test code=ALT) IUnit/L 12-78 ALKALINE PHOSPHATASE TOTAL (test code=ALKP) IUnit/L 45-117 [id number] 07:06:00* Test Item Value Reference Range Comments PHOSPHORUS (test code=PHOS) mg/dL 2.5-4.9 [id number] 07:06:00* Test Item Value Reference Range Comments MAGNESIUM (test code=MAG) mg/dL 1.8-2.4 CALCIUM [id number] 07:06:00* Test Item Value Reference Range Comments CALCIUM IONIZED (test code=ALIVIA) 1.35 mmol/L 1.12-1.32 BASIC METABOLIC [id number] 07:02:00* Test Item Value Reference Range Comments SODIUM (test code=NA) mmol/L 136-145 POTASSIUM (test code=K) mmol/L 3.5-5.1 CHLORIDE (test code=CL) mmol/L 98-107 CARBON DIOXIDE (test code=CO2) mmol/L 21-32 ANION GAP (test code=GAP) 10-20 GLUCOSE (test code=GLU) mg/dL 74-106 BLOOD UREA NITROGEN (test code=BUN) mg/dL 7-18 GLOMERULAR FILTRATION RATE (test code=GFR) mL/min >=60 CREATININE (test code=CREAT) mg/dL 0.7-1.3 BUN/CREATININE RATIO (test code=BUN/CREA) 10-20 CALCIUM (test code=CA) mg/dL 8.5-10.1 COMPREHENSIVE METABOLIC [id number] 07:02:00* Test Item Value Reference Range Comments TOTAL PROTEIN (test code=PROT) gram/dL 6.4-8.2 ALBUMIN (test code=ALB) g/dL 3.4-5.0 GLOBULIN (test code=GLOB) gram/dL 2.7-4.2 ALBUMIN/GLOBULIN RATIO (test code=A/G) 0.75-1.50 BILIRUBIN TOTAL (test code=BILT) mg/dL 0.0-1.0 SGOT/AST (test code=AST) IUnit/L 15-37 SGPT/ALT (test code=ALT) IUnit/L 12-78 ALKALINE PHOSPHATASE TOTAL (test code=ALKP) IUnit/L 45-117 [id number] 07:02:00* Test Item Value Reference Range Comments PHOSPHORUS (test code=PHOS) mg/dL 2.5-4.9 [id number] 07:02:00* Test Item Value Reference Range Comments MAGNESIUM (test code=MAG) mg/dL 1.8-2.4 CALCIUM [id number] 07:02:00* Test Item Value Reference Range Comments CALCIUM IONIZED (test code=ALIVIA) 1.35 mmol/L 1.12-1.32 CBC W/AUTO [id number] 06:31:00* Test Item Value Reference Range Comments WHITE BLOOD CELL (test code=WBC) 10.3 K/mm3 4.5-12.5 RED BLOOD CELL (test code=RBC) 3.46 mill/mm3 4.0-5.8 HEMOGLOBIN (test code=HGB) 10.8 gram/dL 13.0-17.5 HEMATOCRIT (test code=HCT) 32.2 % 42.0-52.0 MEAN CELL VOLUME (test code=MCV) 93.1 fL 80-98 MEAN CELL HGB (test code=MCH) 31.2 picogram 27.0-33.0 MEAN CELL HGB CONCETRATION (test code=MCHC) 33.5 gram/dL 33.0-36.0 RED CELL DISTRIBUTION WIDTH (test code=RDW) 12.1 % 11.6-16.2 RED CELL DISTRIBUTION WIDTH SD (test code=RDW-SD) 41.1 fL 37.0-51.0 PLATELET COUNT (test code=PLT) 204 K/mm3 150-450 MEAN PLATELET VOLUME (test code=MPV) 10.2 fL 6.7-11.0 NEUTROPHIL % (test code=NT%) 82.0 % 39.0-69.0 IMMATURE GRANULOCYTE % (test code=IG%) 0.5 % 0.0-5.0 LYMPHOCYTE % (test code=LY%) 9.1 % 25.0-55.0 MONOCYTE % (test code=MO%) 5.2 % 0.0-10.0 EOSINOPHIL % (test code=EO%) 2.8 % 0.0-5.0 BASOPHIL % (test code=BA%) 0.4 % 0.0-1.0 NUCLEATED RBC % (test code=NRBC%) 0.0 % 0-0 NEUTROPHIL # (test code=NT#) 8.48 K/mm3 1.8-7.7 IMMATURE GRANULOCYTE # (test code=IG#) 0.05 x10 3/uL 0-0.03 LYMPHOCYTE # (test code=LY#) 0.94 K/mm3 1.0-5.0 MONOCYTE # (test code=MO#) 0.54 K/mm3 0-0.8 EOSINOPHIL # (test code=EO#) 0.29 K/mm3 0.0-0.5 BASOPHIL # (test code=BA#) 0.04 K/mm3 0.0-0.2 NUCLEATED RBC # (test code=NRBC#) 0.00 K/mm3 0.0-0.1 ARTERIAL BLOOD [id number] 12:49:00* Test Item Value Reference Range Comments ARTERIAL BLOOD GAS PH (test code=PHA) 7.38 7.35-7.45 ARTERIAL BLOOD GAS PCO2 (test code=PCO2A) 44.2 mm Hg 35-45 ARTERIAL BLOOD GAS PO2 (test code=PO2A) 70.4 mmHg 80-100 BICARBONATE TOTAL HCO3 (test code=HCO3) 25.5 mmol/L 23.0-27.0 BASE EXCESS (test code=RHEA) 0.2 mmol/L -3.0-5.0 ABG O2 SATURATION (test code=SATA) 94.0 % 90.0-98.0 ABG TYPE (test code=TYPEA) Arterial FIO2 (test code=FIO2A) 40.0 ABG VENT MODE (test code=MODEA) VC+ ABG VENT RESP RATE (test code=RRA) 16.0 per min ABG TIDAL VOLUME (test code=TVA) 450.0 mL ABG PEEP (test code=PEEPA) 6.0 cmH2O ABG SITE (test code=SITEA) Lt RADIAL ARTERY MODIFIED ALLENS (test code=MODALL) Yes CHECK PERFORMED HEMATOCRIT (test code=HCT/ABG) 31 % 42-52 TOTAL HGB (test code=THB) 10.7 gram/dL 13.0-17.5 HGB O2 SAT (test code=HBOSAT) 93.3 % 94.00-98.00 CARBOXYHEMOGLOBIN (test code=HOHGBT) 0.6 %totalHg 0.5-1.5 METHEMOGLOBIN (test code=METHGB) 0.1 % 0.0-1.50 O2 CONTENT (test code=O2CT) 14.1 % vol 18.0-22.0 ARTERIAL BLOOD [id number] 11:42:00* Test Item Value Reference Range Comments ARTERIAL BLOOD GAS PH (test code=PHA) 7.44 7.35-7.45 ARTERIAL BLOOD GAS PCO2 (test code=PCO2A) 36.7 mm Hg 35-45 ARTERIAL BLOOD GAS PO2 (test code=PO2A) 95.9 mmHg 80-100 BICARBONATE TOTAL HCO3 (test code=HCO3) 24.5 mmol/L 23.0-27.0 BASE EXCESS (test code=RHEA) 0.6 mmol/L -3.0-5.0 ABG O2 SATURATION (test code=SATA) 96.8 % 90.0-98.0 ABG TYPE (test code=TYPEA) Arterial FIO2 (test code=FIO2A) 40.0 ABG VENT MODE (test code=MODEA) CPAP ABG PEEP (test code=PEEPA) 6.0 cmH2O ABG PRESSURE SUPPORT (test code=PSABG) 7 cmH2O ABG SITE (test code=SITEA) Rt RADIAL ARTERY SODIUM (test code=NA/ABG) 134.0 mEq/L 135-148 POTASSIUM (test code=K/ABG) 4.0 mEq/L 3.5-4.5 CHLORIDE (test code=CL/ABG) 100 mEq/L 98-106 GLUCOSE (test code=GLU/ABG) 170 mg/dL 74-99 HEMATOCRIT (test code=HCT/ABG) 33 % 42-52 IONIZED CALCIUM (test code=CAIABG) 1.16 mmol/L 1.1-1.37 TOTAL HGB (test code=THB) 11.3 gram/dL 13.0-17.5 HGB O2 SAT (test code=HBOSAT) 96.6 % 94.00-98.00 CARBOXYHEMOGLOBIN (test code=HOHGBT) 0.2 %totalHg 0.5-1.5 Results called to and read back by jackie 11:40 - 12/03/2018; by simone kumari METHEMOGLOBIN (test code=METHGB) 0.0 % 0.0-1.50 O2 CONTENT (test code=O2CT) 15.5 % vol 18.0-22.0 - XR CHEST 1 [id number] 10:25:00 FAX: Tonie Mcintosh NP [phone] [place]: B St: [facility] FAX: Maikol Hendrickson [phone] Name: MARLEN NOLAND [facility] : 1945 Age/S: 73/M Juan Alberto Cheng Unit #: [id number] Loc: V.S05 [place] [address] Phys: Tonie Mcintosh NP Acct: [id number] Dis Date: Status: ADM IN PHONE #: [phone] Exam Date: 12/03/2018 1003 FAX #: [phone] Reason: sob EXAMS: CPT CODE: [id number] XR CHEST 1 V 93837 REASON FOR EXAM: sob EXAM ORDER DATE: 12/03/2018 10:02 AM Ordering Andrea: Tonie Mcintosh NP PROCEDURE: - XR CHEST 1 V COMPARISON: 12/02/2018 FINDINGS: Portable AP frontal view of the chest obtained at 10:13 AM shows diffuse airspace opacities. The heart size is minimally enlarged. Pulmonary vasculatures are minimally congested. Stable appearance of the ET tube and OG tube. IMPRESSION: Congestive heart failure with pulmonary edema and probable small right pleural effusion at 1025 Reported and signed by: Sundar Polk M.D. CC: Tonie Mcintosh [employer] DEVEL[employer]; Maikol Hendrickson [facility] Technologist: HARRIETT WORTHINGTON RT (R) Trnscrd Date/Time/By: 12/03/2018 (1029) : By: JaredVTL Orig Print D/T: S: 12/03/2018 (8593) PAGE 1 Signed Report CBC W/AUTO [id number] 06:43:00* Test Item Value Reference Range Comments WHITE BLOOD CELL (test code=WBC) 12.1 K/mm3 4.5-12.5 RED BLOOD CELL (test code=RBC) 3.04 mill/mm3 4.0-5.8 HEMOGLOBIN (test code=HGB) 9.3 gram/dL 13.0-17.5 RESULT VERIFIED BY REPEAT ANALYSIS HEMATOCRIT (test code=HCT) 29.5 % 42.0-52.0 MEAN CELL VOLUME (test code=MCV) 97.0 fL 80-98 MEAN CELL HGB (test code=MCH) 30.6 picogram 27.0-33.0 MEAN CELL HGB CONCETRATION (test code=MCHC) 31.5 gram/dL 33.0-36.0 RED CELL DISTRIBUTION WIDTH (test code=RDW) 12.5 % 11.6-16.2 RED CELL DISTRIBUTION WIDTH SD (test code=RDW-SD) 44.1 fL 37.0-51.0 PLATELET COUNT (test code=PLT) 174 K/mm3 150-450 RESULT VERIFIED BY REPEAT ANALYSIS MEAN PLATELET VOLUME (test code=MPV) 10.4 fL 6.7-11.0 NEUTROPHIL % (test code=NT%) 85.0 % 39.0-69.0 IMMATURE GRANULOCYTE % (test code=IG%) 0.6 % 0.0-5.0 LYMPHOCYTE % (test code=LY%) 8.0 % 25.0-55.0 MONOCYTE % (test code=MO%) 5.1 % 0.0-10.0 EOSINOPHIL % (test code=EO%) 0.9 % 0.0-5.0 BASOPHIL % (test code=BA%) 0.4 % 0.0-1.0 NUCLEATED RBC % (test code=NRBC%) 0.0 % 0-0 NEUTROPHIL # (test code=NT#) 10.26 K/mm3 1.8-7.7 IMMATURE GRANULOCYTE # (test code=IG#) 0.07 x10 3/uL 0-0.03 LYMPHOCYTE # (test code=LY#) 0.97 K/mm3 1.0-5.0 MONOCYTE # (test code=MO#) 0.62 K/mm3 0-0.8 EOSINOPHIL # (test code=EO#) 0.11 K/mm3 0.0-0.5 BASOPHIL # (test code=BA#) 0.05 K/mm3 0.0-0.2 NUCLEATED RBC # (test code=NRBC#) 0.00 K/mm3 0.0-0.1 BASIC METABOLIC [id number] 06:11:00* Test Item Value Reference Range Comments SODIUM (test code=NA) 140 mmol/L 136-145 POTASSIUM (test code=K) 4.5 mmol/L 3.5-5.1 CHLORIDE (test code=CL) 106.0 mmol/L 98-107 CARBON DIOXIDE (test code=CO2) 26.0 mmol/L 21-32 ANION GAP (test code=GAP) 12.5 10-20 GLUCOSE (test code=GLU) 156 mg/dL 74-106 BLOOD UREA NITROGEN (test code=BUN) 14 mg/dL 7-18 GLOMERULAR FILTRATION RATE (test code=GFR) > 60 mL/min >=60 Estimated GFR by using Modified MDRD formula.Chronic kidney disease is defined as either kidney damageor GFR <60 mL/min/1.73 m2 for >3 months. CREATININE (test code=CREAT) 0.80 mg/dL 0.7-1.3 BUN/CREATININE RATIO (test code=BUN/CREA) 16.5 10-20 CALCIUM (test code=CA) 8.2 mg/dL 8.5-10.1 [id number] 06:11:00* Test Item Value Reference Range Comments PHOSPHORUS (test code=PHOS) 2.8 mg/dL 2.5-4.9 [id number] 06:11:00* Test Item Value Reference Range Comments MAGNESIUM (test code=MAG) 1.5 mg/dL 1.8-2.4 BASIC METABOLIC [id number] 06:06:00* Test Item Value Reference Range Comments SODIUM (test code=NA) 140 mmol/L 136-145 POTASSIUM (test code=K) 4.5 mmol/L 3.5-5.1 CHLORIDE (test code=CL) 106.0 mmol/L 98-107 CARBON DIOXIDE (test code=CO2) mmol/L 21-32 ANION GAP (test code=GAP) 10-20 GLUCOSE (test code=GLU) mg/dL 74-106 BLOOD UREA NITROGEN (test code=BUN) mg/dL 7-18 GLOMERULAR FILTRATION RATE (test code=GFR) mL/min >=60 CREATININE (test code=CREAT) mg/dL 0.7-1.3 BUN/CREATININE RATIO (test code=BUN/CREA) 10-20 CALCIUM (test code=CA) mg/dL 8.5-10.1 [id number] 06:06:00* Test Item Value Reference Range Comments PHOSPHORUS (test code=PHOS) mg/dL 2.5-4.9 [id number] 06:06:00* Test Item Value Reference Range Comments MAGNESIUM (test code=MAG) mg/dL 1.8-2.4 - XR CHEST 1 [id number] 16:21:00 FAX: JAN LANDERS MD [place]: B St: [facility] FAX: Maikol Hendrickson [phone] Name: MARLEN NOLAND [facility] : 1945 Age/S: 73/M [address] [facility] Unit #: [id number] Loc: [place] [address] Phys: JAN LANDERS MD Acct: [id number] Dis Date: Status: ADM IN PHONE #: [phone] Exam Date: 12/02/2018 1610 FAX #: [phone] Reason: POST OG TUBE PLACEMENT EXAMS: CPT CODE: [id number] XR CHEST 1 V 13110 REASON FOR EXAM: POST OG TUBE PLACEMENT EXAM ORDER DATE: 12/02/2018 3:59 PM Ordering M.Antonino: JAN LANDERS MD PROCEDURE: - XR CHEST 1 V COMPARISON: 12/02/2018 6:58 AM FINDINGS: Portable AP frontal view of the chest obtained at 4:01 PM shows patchy airspace opacity of the right base. There is no evidence of effusion. The heart size is within normal limits. Pulmonary vasculatures are minimally congested. IMPRESSION: The ET tube is 2 cm above the ny. The OG tube tip is in the stomach at 4238 Reported and signed by: Sundar Polk M.D. CC: JAN LANDERS MD; Maikol Hendrickson Technologist: RT KEENA(Madan) Trnscrd Date/Time/By: 12/02/2018 (8591) : By: JaredVTL PAGE 1 Signed Report ARTERIAL BLOOD [id number] 07:49:00* Test Item Value Reference Range Comments ARTERIAL BLOOD GAS PH (test code=PHA) 7.29 7.35-7.45 ARTERIAL BLOOD GAS PCO2 (test code=PCO2A) 55.0 mm Hg 35-45 ARTERIAL BLOOD GAS PO2 (test code=PO2A) 59.1 mmHg 80-100 BICARBONATE TOTAL HCO3 (test code=HCO3) 25.9 mmol/L 23.0-27.0 BASE EXCESS (test code=RHEA) -1.1 mmol/L -3.0-5.0 ABG O2 SATURATION (test code=SATA) 89.0 % 90.0-98.0 ABG TYPE (test code=TYPEA) Arterial FIO2 (test code=FIO2A) 100.0 ABG VENT MODE (test code=MODEA) BiPAP ABG VENT RESP RATE (test code=RRA) 15.0 per min ABG PEEP (test code=PEEPA) 12.0 cmH2O ABG TEMPERATURE (test code=TEMPA) 38.2 Celsius ABG SITE (test code=SITEA) Lt RADIAL ARTERY MODIFIED ALLENS (test code=MODALL) Yes CHECK PERFORMED HEMATOCRIT (test code=HCT/ABG) 30 % 42-52 TOTAL HGB (test code=THB) 10.2 gram/dL 13.0-17.5 HGB O2 SAT (test code=HBOSAT) 87.8 % 94.00-98.00 CARBOXYHEMOGLOBIN (test code=HOHGBT) 0.8 %totalHg 0.5-1.5 METHEMOGLOBIN (test code=METHGB) 0.5 % 0.0-1.50 O2 CONTENT (test code=O2CT) 12.6 % vol 18.0-22.0 A-A GRADIENT (test code=AAGRADE) 587.6 mm Hg - XR CHEST 1 [id number] 07:26:00 FAX: Champ Anna DO [place]: B : [facility] FAX: Ottoniel Leon NP [phone] Name: MARLEN NOLAND [facility] : 1945 Age/S: 73/M [place] [facility] J[facility] Unit #: [id number] Loc: [place] [address] Phys: Ottoniel Alonso [employer]EL[employer] Acct: [id number] Dis Date: Status: REG ER PHONE #: [phone] Exam Date: 12/02/2018 0700 FAX #: [phone] Reason: intubation EXAMS: CPT CODE: [id number] XR CHEST 1 V 02285 CLINICAL HISTORY: intubation, altered mental status TECHNIQUE: AP chest x- ray COMPARISON: Previous day. IMPRESSION: ET tube positioned above the ny T2 level. Mildly improved bibasilar airspace opacification and atelectasis. No evident pleural effusion. Elevated right hemidiaphragm. Cardiomegaly. Atherosclerotic vascular calcification of the thoracic aorta. Sternotomy wires. at 0710 Reported and signed by: Netta Hidalgo D.O. CC: Champ Anna DO; Ottoniel Alonso NP Technologist: Marsha Santos) Trnscrd Date/Time/By: 12/02/2018 (725) : By: [email or web address] Orig Print D/T: S: 12/02/2018 (0711) PAGE 1 Signed Report ARTERIAL BLOOD [id number] 05:47:00* Test Item Value Reference Range Comments ARTERIAL BLOOD GAS PH (test code=PHA) 7.30 7.35-7.45 ARTERIAL BLOOD GAS PCO2 (test code=PCO2A) 54.8 mm Hg 35-45 ARTERIAL BLOOD GAS PO2 (test code=PO2A) 121.3 mmHg 80-100 BICARBONATE TOTAL HCO3 (test code=HCO3) 26.2 mmol/L 23.0-27.0 BASE EXCESS (test code=RHEA) -0.8 mmol/L -3.0-5.0 ABG O2 SATURATION (test code=SATA) 97.8 % 90.0-98.0 ABG TYPE (test code=TYPEA) Arterial FIO2 (test code=FIO2A) 100.0 ABG SITE (test code=SITEA) Rt RADIAL ARTERY MODIFIED ALLENS (test code=MODALL) Yes CHECK PERFORMED SODIUM (test code=NA/ABG) 134.6 mEq/L 135-148 POTASSIUM (test code=K/ABG) 5.2 mEq/L 3.5-4.5 CHLORIDE (test code=CL/ABG) 104 mEq/L 98-106 GLUCOSE (test code=GLU/ABG) 90 mg/dL 74-99 HEMATOCRIT (test code=HCT/ABG) 31 % 42-52 IONIZED CALCIUM (test code=CAIABG) 0.89 mmol/L 1.1-1.37 TOTAL HGB (test code=THB) 10.5 gram/dL 13.0-17.5 HGB O2 SAT (test code=HBOSAT) 96.8 % 94.00-98.00 CARBOXYHEMOGLOBIN (test code=HOHGBT) 0.7 %totalHg 0.5-1.5 METHEMOGLOBIN (test code=METHGB) 0.3 % 0.0-1.50 O2 CONTENT (test code=O2CT) 14.5 % vol 18.0-22.0 LACTIC [id number] 01:01:00* Test Item Value Reference Range Comments LACTIC ACID (test code=LACT) 1.7 mmol/L 0.4-1.9 - CT CHEST W/O [id number] 00:01:00 Name: MARLEN NOLAND [facility] : 1945 Age/S: 73 / M [address] [facility] Unit #: [id number] Loc: [place] [address] Phys: Maikol Hendrickson MD Acct: [id number] Dis Date: Status: REG ER PHONE #: [phone] Exam Date: 12/01/2018 4396 FAX #: [phone] Reason: PNEUMONIA EXAMS: CPT CODE: [id number] CT CHEST W/O CONTRAST 62749 HISTORY: Pneumonia TECHNIQUE: Axial tomograms through the chest were obtained without intravenous contrast. One or more of the following dose reduction techniques were used: Automated exposure control, adjustment of the mA and/or kV according to patient size, and/or utilization of iterative reconstruction technique. FINDINGS: Evaluation the mediastinal structures is limited without intravenous contrast. Aortic and coronary calcifications are noted. There is no significant mediastinal or hilar adenopathy. No significant pleural effusion. The aorta and mediastinal structures show no other significant abnormalities. Perihilar airspace opacity is demonstrated. There is focal consolidation involving the posterior right upper lobe.. Patchy airspace opacity is demonstrated involving the left base. No pneumothorax. No significant e ffusion. IMPRESSION: 1. Perihilar airspace opa city compatible with edema and/or pneumonia with patchy and focal areas of consolidation involving the posterior right upper lobe as well as lef t lower lobe. Electronically Signed by Marlen Bell MD on 9 at 0001 Reported and signed by: Marlen Bell MD CC: Champ Anna DO; Maikol Hendrickson Technologist:RT ACOSTA CTDI: DLP: Trnscb Date/Time: 12/03/19 19 (0001) t.SDR.[email or web address] Orig Print D/T: S: 12/02/2018 (0005) PAGE 1 Signed Report URINALYSIS [id number] 23:57:00* Test Item Value Reference Range Comments UA COLOR (test code=COLU) YELLOW YELLOW UA APPEARANCE (test code=APPU) Cloudy CLEAR UA GLUCOSE DIPSTICK (test code=DGLUU) NEGATIVE mg/dL NEGATIVE UA BILIRUBIN DIPSTICK (test code=BILU) NEGATIVE mg/dL NEGATIVE UA KETONE DIPSTICK (test code=KETU) NEGATIVE mg/dL NEGATIVE UA SPECIFIC GRAVITY (test code=SGU) 1.014 1.001-1.035 UA BLOOD DIPSTICK (test code=SRINIVASAN) 0.03 mg/dL (Trace) mg/dL NEGATIVE UA PH DIPSTICK (test code=ANAY) 6.0 5.0-8.0 UA PROTEIN DIPSTICK (test code=PROU) 30 (1+) mg/dL NEGATIVE UA UROBILINIOGEN DIPSTICK (test code=URO) Normal mg/dL NEGATIVE UA NITRITE DIPSTICK (test code=RANDY) NEGATIVE NEGATIVE UA LEUKOCYTE ESTERASE W REFLEX (test code=LEUUR) 500 Kiya/uL (3+) Kiya/uL NEGATIVE UA WBC (test code=WBCU) 151-200 per HPF 0-5 UA RBC (test code=RBCU) 3-5 #/HPF 0-5 UA WBC CLUMPS (test code=WBCUCL) >10 /HPF NONE UA EPITHELIAL CELLS (test code=EPIU) FEW per HPF FEW UA BACTERIA (test code=BACU) FEW #/HPF NONE UA HYALINE CAST (test code=HYALU) 3-5 #/LPF 0-5 UA MUCUS (test code=MUCU) FEW #/LPF FEW Urine Source? Clean CatchURINALYSIS [id number] 23:54:00* Test Item Value Reference Range Comments UA COLOR (test code=COLU) YELLOW YELLOW UA APPEARANCE (test code=APPU) Cloudy CLEAR UA GLUCOSE DIPSTICK (test code=DGLUU) NEGATIVE mg/dL NEGATIVE UA BILIRUBIN DIPSTICK (test code=BILU) NEGATIVE mg/dL NEGATIVE UA KETONE DIPSTICK (test code=KETU) NEGATIVE mg/dL NEGATIVE UA SPECIFIC GRAVITY (test code=SGU) 1.014 1.001-1.035 UA BLOOD DIPSTICK (test code=SRINIVASAN) 0.03 mg/dL (Trace) mg/dL NEGATIVE UA PH DIPSTICK (test code=ANAY) 6.0 5.0-8.0 UA PROTEIN DIPSTICK (test code=PROU) 30 (1+) mg/dL NEGATIVE UA UROBILINIOGEN DIPSTICK (test code=URO) Normal mg/dL NEGATIVE UA NITRITE DIPSTICK (test code=RANDY) NEGATIVE NEGATIVE UA LEUKOCYTE ESTERASE W REFLEX (test code=LEUUR) 500 Kiya/uL (3+) Kiya/uL NEGATIVE UA WBC (test code=WBCU) per HPF 0-5 UA RBC (test code=RBCU) per HPF 0-5 UA EPITHELIAL CELLS (test code=EPIU) per HPF Few UA BACTERIA (test code=BACU) per HPF NONE Urine Source? Clean CatchB-TYPE NATRIURETIC [id number] 22:28:00* Test Item Value Reference Range Comments B-TYPE NATRIURETIC PEPTIDE (test code=BNP) 53.68 pgram/mL 0-100 PROCALCITONIN (PCT)2018-12-01 22:19:00* Test Item Value Reference Range Comments PROCALCITONIN (PCT) (test code=PROCAL) 0.11 ng/ml Concentration Interpretation (ng/mL) <0.51 Sepsis is not likely. Local bacterial infection is possible. (LOW RISK for progression to Sepsis) 0.51 - 2.00 Sepsis is possible, but other conditions are known to elevate PCT as well. (MODERATE RISK for progression to Sepsis) > 2.00 Sepsis is likely, unless other causes are known. (HIGH RISK for progression to Severe Sepsis or Septic Shock) 10.00 High likelihood of Severe Sepsis or Septic or higher Shock. *Increased PCT levels may not always be related to systemic bacterial infection.*Low PCT levels do not automatically exclude the presence of bacterial infection.*All results should be interpreted taking into account the patients history. LACTIC [id number] 22:03:00* Test Item Value Reference Range Comments LACTIC ACID (test code=LACT) 2.4 mmol/L 0.4-1.9 Results called to [id number] by [facility] [place] 12/01/18 2203Critical results verified and read back by Nurse? Y BASIC METABOLIC [id number] 22:02:00* Test Item Value Reference Range Comments SODIUM (test code=NA) 138 mmol/L 136-145 POTASSIUM (test code=K) 4.8 mmol/L 3.5-5.1 CHLORIDE (test code=CL) 100.0 mmol/L 98-107 CARBON DIOXIDE (test code=CO2) 32.0 mmol/L 21-32 ANION GAP (test code=GAP) 10.8 10-20 GLUCOSE (test code=GLU) 115 mg/dL 74-106 BLOOD UREA NITROGEN (test code=BUN) 22 mg/dL 7-18 GLOMERULAR FILTRATION RATE (test code=GFR) 40 mL/min >=60 Estimated GFR by using Modified MDRD formula.Chronic kidney disease is defined as either kidney damageor GFR <60 mL/min/1.73 m2 for >3 months. CREATININE (test code=CREAT) 1.70 mg/dL 0.7-1.3 BUN/CREATININE RATIO (test code=BUN/CREA) 12.9 10-20 CALCIUM (test code=CA) 9.0 mg/dL 8.5-10.1 HEPATIC FUNCTION [id number] 22:02:00* Test Item Value Reference Range Comments TOTAL PROTEIN (test code=PROT) 7.7 gram/dL 6.4-8.2 ALBUMIN (test code=ALB) 3.9 g/dL 3.4-5.0 GLOBULIN (test code=GLOB) 3.8 gram/dL 2.7-4.2 ALBUMIN/GLOBULIN RATIO (test code=A/G) 1.0 0.75-1.50 BILIRUBIN TOTAL (test code=BILT) 0.30 mg/dL 0.0-1.0 BILIRUBIN DIRECT (test code=BILD) 0.14 mg/dL 0.0-0.20 SGOT/AST (test code=AST) 49 IUnit/L 15-37 SGPT/ALT (test code=ALT) 20 IUnit/L 12-78 ALKALINE PHOSPHATASE TOTAL (test code=ALKP) 86 IUnit/L 45-117 Note change in reference range due to change in reagent. [id number] 22:02:00* Test Item Value Reference Range Comments LIPASE (test code=LIP) 87 U/L 73.0-393.0 [id number] 22:02:00* Test Item Value Reference Range Comments TROPONIN-I (test code=TROPI) <0.015 ng/mL 0-0.045 ARTERIAL BLOOD [id number] 22:01:00* Test Item Value Reference Range Comments ARTERIAL BLOOD GAS PH (test code=PHA) 7.39 7.35-7.45 ARTERIAL BLOOD GAS PCO2 (test code=PCO2A) 44.6 mm Hg 35-45 ARTERIAL BLOOD GAS PO2 (test code=PO2A) 109.1 mmHg 80-100 BICARBONATE TOTAL HCO3 (test code=HCO3) 26.6 mmol/L 23.0-27.0 BASE EXCESS (test code=RHEA) 1.4 mmol/L -3.0-5.0 ABG O2 SATURATION (test code=SATA) 97.8 % 90.0-98.0 ABG TYPE (test code=TYPEA) Arterial FIO2 (test code=FIO2A) 100.0 ABG TEMPERATURE (test code=TEMPA) 40.6 Celsius ABG SITE (test code=SITEA) Lt RADIAL ARTERY MODIFIED ALLENS (test code=MODALL) Yes CHECK PERFORMED HEMATOCRIT (test code=HCT/ABG) 35 % 42-52 TOTAL HGB (test code=THB) 11.9 gram/dL 13.0-17.5 HGB O2 SAT (test code=HBOSAT) 94.8 % 94.00-98.00 CARBOXYHEMOGLOBIN (test code=HOHGBT) 2.8 %totalHg 0.5-1.5 Results called to and read back by Lina 22:00 - 12/01/2018; by Morgan Chung RRT-MARQUEZ METHEMOGLOBIN (test code=METHGB) 0.3 % 0.0-1.50 O2 CONTENT (test code=O2CT) 16.0 % vol 18.0-22.0 A-A GRADIENT (test code=AAGRADE) 516.7 mm Hg [id number] 22:01:00* Test Item Value Reference Range Comments AMMONIA (test code=AMM) < 10 umol/L 11-32 - XR CHEST 1 [id number] 21:54:00 FAX: Champ Anna DO [place]: B St: REG Name: MARLEN RODGERS [facility] : [birth year] Age/S: 73/M [address] [facility] Unit #: [id number] Loc: [place] [address] Phys: Champ Anna DO Acct: [id number] Dis Date: Status: REG ER PHONE #: [phone] Exam Date: 12/01/2018 213 FAX #: [phone] Reason: CODE SEPSIS EXAMS: CPT CODE: [id number] XR CHEST 1 V 17423 REASON FOR EXAM: CODE SEPSIS EXAM ORDER DATE: 12/01/2018 9:10 PM Ordering MCoralDCoral: Champ Anna DO PROCEDURE: - XR CHEST 1 V COMPARISON: 11/16/2018 FINDINGS: Portable AP frontal view of the chest ob tained at 9:37 PM shows patchy airspace opacity bases. There is no evidenc e of effusion. The heart size is minimally enlarged. Pulmonary vasculature s are minimally congested. IMPRESSION: Patchy consolidati on or atelectasis of the bases more pronounced on the left E lectronically Signed by Andrea Polk on 12/01/2018 at 2154 Reported and signed by: Sundar Polk M.D. CC: Champ Anna DO Technologist: COOPER HAWKINS; SARIAH CHRISTIANSEN, RT(R) Trnscrd Date/Time/By: 12/01/2018 (2153) : By: Roslyn LINTONVTL Orig Print D/T: S: 12/01/2018 (2156) EZEQUIEL HERNANDEZ 1 Signed Report - CT HEAD/BRAIN W/O [id number] 21:49:00 Name: MARLEN NOLAND [facility] : 1945 Age/S: 73 / M [address] [facility] Unit #: [id number] Loc: [facility] [place] [address] Phys: Champ Anna DO Acct: [id number] Dis Date: Status: REG ER PHONE #: [phone] Exam Date: 12/01/20182132 FAX #: [phone] Reason: CODE SEPSIS EXAMS: CPT CODE: [id number] CT HEAD/BRAIN W/O CONT 27826 REASON FOR EXAM: CODE SEPSIS EXAM ORDER DATE: 12/01/2018 9:10 PM Ordering Andrea: Champ Anna DO PROCEDURE: - CT HEAD/BRAIN W/O CONT COMPARISON: 11/19/2018 FINDINGS: CT images of the brain were obtained without IV contrast. Dose modulation, iterative reconstruction, and/or weight based adjustment of the MA/KV was utilized to reduce the radiation dose to as low as reasonably achievable. Mild patchy low densities appearance of the paraventricular region noted consistent with nonspecific white matter disease. The monahan-white matter delineation is unremarkable. The ventricles, cisterns, and sulci are unremarkable. There is no evidence of hemorrhage, mass, mass effect. There is no evidence of acute or old infarct. The calvarium is intact. IMPRESSION: Unremarkable brain. at 2149 Reported and signed by: Sundar Polk M.D. CC: Champ Anna DO Technologist:RT JULIA(Madan) DALIA CTDI: DLP: Trnscb Date/Time: 12/01/2018 (2148) AmandaL Orig Print D/T: S: 12/01/2018 (5276) PAGE 1 Signed Report PROTHROMBIN [id number] 21:47:00* Test Item Value Reference Range Comments PROTHROMBIN TIME PATIENT (test code=PTP) 11.9 seconds 9.0-14.0 INTERNATIONAL NORMAL RATIO (test code=INR) 1.0 0.8-1.2 The therapeutic range for oral anticoagulant therapy formost indications is an international normalized ratio (INR)of between 2.0 and 3.0. The recommended therapeutic INRrange for various clinical situations is listed below: Clinical Situation INR range Pulmonary e mbolism treatment (2.0-3.0)Venous thrombosis treatmentVenous thrombosis prophylaxis (high risk surgery)Prevention of systemic embolism from: Acute myocardial infarction Valvular heart disease Atrial fibrillation Mechanical prosthetic heart valves (2.5-3.5) IS PATIENT ON ANTICOAGULANTS? NTHROMBOPLASTIN TIME [id number] 21:47:00* Test Item Value Reference Range Comments THROMBOPLASTIN TIME PARTIAL (test code=PTT) 34.6 seconds 25.0-36.5 IS PATIENT ON ANTICOAGULANTS? NBASIC METABOLIC [id number] 21:42:00* Test Item Value Reference Range Comments SODIUM (test code=NA) 138 mmol/L 136-145 POTASSIUM (test code=K) 4.8 mmol/L 3.5-5.1 CHLORIDE (test code=CL) 100.0 mmol/L 98-107 CARBON DIOXIDE (test code=CO2) mmol/L 21-32 ANION GAP (test code=GAP) 10-20 GLUCOSE (test code=GLU) mg/dL 74-106 BLOOD UREA NITROGEN (test code=BUN) mg/dL 7-18 GLOMERULAR FILTRATION RATE (test code=GFR) mL/min >=60 CREATININE (test code=CREAT) mg/dL 0.7-1.3 BUN/CREATININE RATIO (test code=BUN/CREA) 10-20 CALCIUM (test code=CA) mg/dL 8.5-10.1 HEPATIC FUNCTION [id number] 21:42:00* Test Item Value Reference Range Comments TOTAL PROTEIN (test code=PROT) gram/dL 6.4-8.2 ALBUMIN (test code=ALB) g/dL 3.4-5.0 GLOBULIN (test code=GLOB) gram/dL 2.7-4.2 ALBUMIN/GLOBULIN RATIO (test code=A/G) 0.75-1.50 BILIRUBIN TOTAL (test code=BILT) mg/dL 0.0-1.0 BILIRUBIN DIRECT (test code=BILD) mg/dL 0.0-0.20 SGOT/AST (test code=AST) IUnit/L 15-37 SGPT/ALT (test code=ALT) IUnit/L 12-78 ALKALINE PHOSPHATASE TOTAL (test code=ALKP) IUnit/L 45-117 [id number] 21:42:00* Test Item Value Reference Range Comments LIPASE (test code=LIP) U/L 73.0-393.0 [id number] 21:42:00* Test Item Value Reference Range Comments TROPONIN-I (test code=TROPI) ng/mL 0-0.045 CBC W/AUTO [id number] 21:37:00* Test Item Value Reference Range Comments WHITE BLOOD CELL (test code=WBC) 11.9 K/mm3 4.5-12.5 RED BLOOD CELL (test code=RBC) 3.87 mill/mm3 4.0-5.8 HEMOGLOBIN (test code=HGB) 12.2 gram/dL 13.0-17.5 HEMATOCRIT (test code=HCT) 38.1 % 42.0-52.0 MEAN CELL VOLUME (test code=MCV) 98.4 fL 80-98 MEAN CELL HGB (test code=MCH) 31.5 picogram 27.0-33.0 MEAN CELL HGB CONCETRATION (test code=MCHC) 32.0 gram/dL 33.0-36.0 RED CELL DISTRIBUTION WIDTH (test code=RDW) 12.5 % 11.6-16.2 RED CELL DISTRIBUTION WIDTH SD (test code=RDW-SD) 45.1 fL 37.0-51.0 PLATELET COUNT (test code=PLT) 231 K/mm3 150-450 MEAN PLATELET VOLUME (test code=MPV) 9.8 fL 6.7-11.0 NEUTROPHIL % (test code=NT%) 74.5 % 39.0-69.0 IMMATURE GRANULOCYTE % (test code=IG%) 0.4 % 0.0-5.0 LYMPHOCYTE % (test code=LY%) 19.4 % 25.0-55.0 MONOCYTE % (test code=MO%) 3.8 % 0.0-10.0 EOSINOPHIL % (test code=EO%) 1.6 % 0.0-5.0 BASOPHIL % (test code=BA%) 0.3 % 0.0-1.0 NUCLEATED RBC % (test code=NRBC%) 0.0 % 0-0 NEUTROPHIL # (test code=NT#) 8.85 K/mm3 1.8-7.7 IMMATURE GRANULOCYTE # (test code=IG#) 0.05 x10 3/uL 0-0.03 LYMPHOCYTE # (test code=LY#) 2.31 K/mm3 1.0-5.0 MONOCYTE # (test code=MO#) 0.45 K/mm3 0-0.8 EOSINOPHIL # (test code=EO#) 0.19 K/mm3 0.0-0.5 BASOPHIL # (test code=BA#) 0.03 K/mm3 0.0-0.2 NUCLEATED RBC # (test code=NRBC#) 0.00 K/mm3 0.0-0.1 MANUAL DIFF REQUIRED (test code=MDIFF) NO [id number] 15:46:00* Test Item Value Reference Range Comments GLUBED (test code=GLUBED) 182 mg/dL 74-106 Performed by certified protective signal operator at [facility] [id number] 12:25:00* Test Item Value Reference Range Comments GLUBED (test code=GLUBED) 192 mg/dL 74-106 Performed by certified protective signal operator at [facility] LIPID PROFILE (CORONARY RISK)2018-11-22 11:25:00* Test Item Value Reference Range Comments TRIGLYCERIDES (test code=TRIG) 133 mg/dL 20-150 CHOLESTEROL (test code=CHOL) 118 mg/dL 0-200 CHOLESTEROL/HDL RATIO (test code=CHOLHDL) 3.0 RATIO 0-4.9 RISK ASSOCIATED WITH CHOL/HDL RATIOS: Risk Male Female1/2 AVERAGE 3.43 3.27AVERAGE 4.97 4.442X AVERAGE 9.55 7.053X AVERAGE 23.39 11.04 REFERENCE VALUE IS RELATED TO RISK LEVELS ASRECOMMENDED BY THE [facility]. HEART, LUNG, AND BLOOD INST. HDL CHOLESTEROL (test code=HDL) 39 mg/dL 40-60 LIPOPROTEIN LDL (test code=LDL) 62 mg/dL 100-129 Reference Interval: mg/dL mmol/L Optimal <100 <2.6Near/above optimal 100-129 2.6- 3.3Borderline High 130-159 3.4-4.1High 160-189 4.1-4.9Very High >=190 >=4.9=========This LDL result is a direct measurement.========= SPECIMEN COMMENTS: add to labsTHYROID STIMULATING [id number] 11:25:00* Test Item Value Reference Range Comments THYROID STIMULATING HORMONE (test code=TSH) 1.240 uIU/mL 0.36-3.74 TSH REFERENCE RANGES: EUTHYROID: 0.35 - 4.3 mIU/mL HYPO : > 5.5 mIU/mL HYPER : < 0.35 mIU/mL SPECIMEN COMMENTS: add to [id number] 08:10:00* Test Item Value Reference Range Comments GLUBED (test code=GLUBED) 134 mg/dL 74-106 Performed by certified protective signal operator at [facility] [id number] 04:58:00* Test Item Value Reference Range Comments GLYCOSYLATED HEMOGLOBIN (HA1C) (test code=GLYHGB) 7.4 % HbA1 4.8-6.0 ESTIMATED AVERAGE GLUCOSE (test code=EAG) 166 MG/DL COMPREHENSIVE METABOLIC [id number] 04:52:00* Test Item Value Reference Range Comments SODIUM (test code=NA) 140 mmol/L 136-145 POTASSIUM (test code=K) 4.3 mmol/L 3.5-5.1 CHLORIDE (test code=CL) 106.0 mmol/L 98-107 CARBON DIOXIDE (test code=CO2) 32.0 mmol/L 21-32 ANION GAP (test code=GAP) 6.3 10-20 GLUCOSE (test code=GLU) 168 mg/dL 74-106 BLOOD UREA NITROGEN (test code=BUN) 19 mg/dL 7-18 GLOMERULAR FILTRATION RATE (test code=GFR) > 60 mL/min >=60 Estimated GFR by using Modified MDRD formula.Chronic kidney disease is defined as either kidney damageor GFR <60 mL/min/1.73 m2 for >3 months. CREATININE (test code=CREAT) 1.00 mg/dL 0.7-1.3 BUN/CREATININE RATIO (test code=BUN/CREA) 19.4 10-20 TOTAL PROTEIN (test code=PROT) 6.8 gram/dL 6.4-8.2 ALBUMIN (test code=ALB) 3.0 g/dL 3.4-5.0 GLOBULIN (test code=GLOB) 3.8 gram/dL 2.7-4.2 ALBUMIN/GLOBULIN RATIO (test code=A/G) 0.8 0.75-1.50 CALCIUM (test code=CA) 9.2 mg/dL 8.5-10.1 BILIRUBIN TOTAL (test code=BILT) 0.30 mg/dL 0.0-1.0 SGOT/AST (test code=AST) 17 IUnit/L 15-37 SGPT/ALT (test code=ALT) 16 IUnit/L 12-78 ALKALINE PHOSPHATASE TOTAL (test code=ALKP) 61 IUnit/L 45-117 Note change in reference range due to change in reagent. COMPREHENSIVE METABOLIC [id number] 04:45:00* Test Item Value Reference Range Comments SODIUM (test code=NA) 140 mmol/L 136-145 POTASSIUM (test code=K) 4.3 mmol/L 3.5-5.1 CHLORIDE (test code=CL) 106.0 mmol/L 98-107 CARBON DIOXIDE (test code=CO2) mmol/L 21-32 ANION GAP (test code=GAP) 10-20 GLUCOSE (test code=GLU) mg/dL 74-106 BLOOD UREA NITROGEN (test code=BUN) mg/dL 7-18 GLOMERULAR FILTRATION RATE (test code=GFR) mL/min >=60 CREATININE (test code=CREAT) mg/dL 0.7-1.3 BUN/CREATININE RATIO (test code=BUN/CREA) 10-20 TOTAL PROTEIN (test code=PROT) gram/dL 6.4-8.2 ALBUMIN (test code=ALB) g/dL 3.4-5.0 GLOBULIN (test code=GLOB) gram/dL 2.7-4.2 ALBUMIN/GLOBULIN RATIO (test code=A/G) 0.75-1.50 CALCIUM (test code=CA) mg/dL 8.5-10.1 BILIRUBIN TOTAL (test code=BILT) mg/dL 0.0-1.0 SGOT/AST (test code=AST) IUnit/L 15-37 SGPT/ALT (test code=ALT) IUnit/L 12-78 ALKALINE PHOSPHATASE TOTAL (test code=ALKP) IUnit/L 45-117 CBC W/AUTO [id number] 04:21:00* Test Item Value Reference Range Comments WHITE BLOOD CELL (test code=WBC) 7.6 K/mm3 4.5-12.5 RED BLOOD CELL (test code=RBC) 3.64 mill/mm3 4.0-5.8 HEMOGLOBIN (test code=HGB) 11.4 gram/dL 13.0-17.5 HEMATOCRIT (test code=HCT) 34.7 % 42.0-52.0 MEAN CELL VOLUME (test code=MCV) 95.3 fL 80-98 MEAN CELL HGB (test code=MCH) 31.3 picogram 27.0-33.0 MEAN CELL HGB CONCETRATION (test code=MCHC) 32.9 gram/dL 33.0-36.0 RED CELL DISTRIBUTION WIDTH (test code=RDW) 12.2 % 11.6-16.2 RED CELL DISTRIBUTION WIDTH SD (test code=RDW-SD) 42.4 fL 37.0-51.0 PLATELET COUNT (test code=PLT) 250 K/mm3 150-450 MEAN PLATELET VOLUME (test code=MPV) 9.7 fL 6.7-11.0 NEUTROPHIL % (test code=NT%) 58.8 % 39.0-69.0 IMMATURE GRANULOCYTE % (test code=IG%) 0.1 % 0.0-5.0 LYMPHOCYTE % (test code=LY%) 31.4 % 25.0-55.0 MONOCYTE % (test code=MO%) 6.2 % 0.0-10.0 EOSINOPHIL % (test code=EO%) 2.8 % 0.0-5.0 BASOPHIL % (test code=BA%) 0.7 % 0.0-1.0 NUCLEATED RBC % (test code=NRBC%) 0.0 % 0-0 NEUTROPHIL # (test code=NT#) 4.46 K/mm3 1.8-7.7 IMMATURE GRANULOCYTE # (test code=IG#) 0.01 x10 3/uL 0-0.03 LYMPHOCYTE # (test code=LY#) 2.38 K/mm3 1.0-5.0 MONOCYTE # (test code=MO#) 0.47 K/mm3 0-0.8 EOSINOPHIL # (test code=EO#) 0.21 K/mm3 0.0-0.5 BASOPHIL # (test code=BA#) 0.05 K/mm3 0.0-0.2 NUCLEATED RBC # (test code=NRBC#) 0.00 K/mm3 0.0-0.1 MANUAL DIFF REQUIRED (test code=MDIFF) NO [id number] 20:53:00* Test Item Value Reference Range Comments GLUBED (test code=GLUBED) 117 mg/dL 74-106 Performed by certified protective signal operator at [facility] [id number] 16:59:00* Test Item Value Reference Range Comments GLUBED (test code=GLUBED) 181 mg/dL 74-106 Performed by certified protective signal operator [facility] [id number] 13:18:00* Test Item Value Reference Range Comments MAGNESIUM (test code=MAG) 2.0 mg/dL 1.8-2.4 [id number] 13:18:00* Test Item Value Reference Range Comments PHOSPHORUS (test code=PHOS) 3.0 mg/dL 2.5-4.9 [id number] 12:12:00* Test Item Value Reference Range Comments GLUBED (test code=GLUBED) 203 mg/dL 74-106 Performed [facility] certified protective signal [facility] [id number] 08:14:00* Test Item Value Reference Range Comments GLUBED (test code=GLUBED) 103 mg/dL 74-106 Performed [facility] certified protective signal [facility] [id number] 20:59:00* Test Item Value Reference Range Comments GLUBED (test code=GLUBED) 125 mg/dL 74-106 Performed by certified protective signal operator at [facility] [id number] 16:42:00* Test Item Value Reference Range Comments GLUBED (test code=GLUBED) 235 mg/dL 74-106 Performed [facility] certified protective signal [facility] [id number] 12:14:00* Test Item Value Reference Range Comments GLUBED (test code=GLUBED) 217 mg/dL 74-106 Performed [facility] certified protective signal [facility] [id number] 08:32:00* Test Item Value Reference Range Comments GLUBED (test code=GLUBED) 141 mg/dL 74-106 Performed by certified protective signal operator at [facility] BASIC METABOLIC [id number] 05:59:00* Test Item Value Reference Range Comments SODIUM (test code=NA) 143 mmol/L 136-145 POTASSIUM (test code=K) 4.1 mmol/L 3.5-5.1 CHLORIDE (test code=CL) 108.0 mmol/L 98-107 CARBON DIOXIDE (test code=CO2) 31.0 mmol/L 21-32 ANION GAP (test code=GAP) 8.1 10-20 GLUCOSE (test code=GLU) 137 mg/dL 74-106 BLOOD UREA NITROGEN (test code=BUN) 11 mg/dL 7-18 GLOMERULAR FILTRATION RATE (test code=GFR) > 60 mL/min >=60 Estimated GFR by using Modified MDRD formula.Chronic kidney disease is defined as either kidney damageor GFR <60 mL/min/1.73 m2 for >3 months. CREATININE (test code=CREAT) 0.80 mg/dL 0.7-1.3 BUN/CREATININE RATIO (test code=BUN/CREA) 14.1 10-20 CALCIUM (test code=CA) 8.8 mg/dL 8.5-10.1 CBC W/AUTO [id number] 05:28:00* Test Item Value Reference Range Comments WHITE BLOOD CELL (test code=WBC) 8.0 K/mm3 4.5-12.5 RED BLOOD CELL (test code=RBC) 3.72 mill/mm3 4.0-5.8 HEMOGLOBIN (test code=HGB) 11.6 gram/dL 13.0-17.5 HEMATOCRIT (test code=HCT) 35.4 % 42.0-52.0 MEAN CELL VOLUME (test code=MCV) 95.2 fL 80-98 MEAN CELL HGB (test code=MCH) 31.2 picogram 27.0-33.0 MEAN CELL HGB CONCETRATION (test code=MCHC) 32.8 gram/dL 33.0-36.0 RED CELL DISTRIBUTION WIDTH (test code=RDW) 12.1 % 11.6-16.2 RED CELL DISTRIBUTION WIDTH SD (test code=RDW-SD) 42.7 fL 37.0-51.0 PLATELET COUNT (test code=PLT) 291 K/mm3 150-450 MEAN PLATELET VOLUME (test code=MPV) 9.5 fL 6.7-11.0 NEUTROPHIL % (test code=NT%) 65.3 % 39.0-69.0 IMMATURE GRANULOCYTE % (test code=IG%) 0.3 % 0.0-5.0 LYMPHOCYTE % (test code=LY%) 26.2 % 25.0-55.0 MONOCYTE % (test code=MO%) 6.3 % 0.0-10.0 EOSINOPHIL % (test code=EO%) 1.4 % 0.0-5.0 BASOPHIL % (test code=BA%) 0.5 % 0.0-1.0 NUCLEATED RBC % (test code=NRBC%) 0.0 % 0-0 NEUTROPHIL # (test code=NT#) 5.22 K/mm3 1.8-7.7 IMMATURE GRANULOCYTE # (test code=IG#) 0.02 x10 3/uL 0-0.03 LYMPHOCYTE # (test code=LY#) 2.09 K/mm3 1.0-5.0 MONOCYTE # (test code=MO#) 0.50 K/mm3 0-0.8 EOSINOPHIL # (test code=EO#) 0.11 K/mm3 0.0-0.5 BASOPHIL # (test code=BA#) 0.04 K/mm3 0.0-0.2 NUCLEATED RBC # (test code=NRBC#) 0.00 K/mm3 0.0-0.1 [id number] 20:57:00* Test Item Value Reference Range Comments GLUBED (test code=GLUBED) 101 mg/dL 74-106 Performed by certified protective signal operator at [facility] [id number] 16:10:00* Test Item Value Reference Range Comments GLUBED (test code=GLUBED) 147 mg/dL 74-106 Performed by certified protective signal operator at [facility] [id number] 12:15:00* Test Item Value Reference Range Comments GLUBED (test code=GLUBED) 183 mg/dL 74-106 Performed by certified protective signal operator at [facility] [id number] 10:23:00* Test Item Value Reference Range Comments GLUBED (test code=GLUBED) 124 mg/dL 74-106 Performed by certified protective signal operator at [facility] - CT HEAD/BRAIN W/O [id number] 03:44:00 Name: MARLEN NOLAND [facility] : 1945 Age/S: 73 / M [address] [facility] Unit #: [id number] Loc: [place] [address] Phys: Celina Camarena MD Acct: [id number] Dis Date: Status: ADM IN PHONE #: [phone] Exam Date: 11/19/2018323 FAX #: [phone] Reason: UNRESPONSIVE EXAMS: CPT CODE: [id number] CT HEAD/BRAIN W/O CONT 33582 AFTER HOURS SERVICE ON: 11/19/2018 3:[address] Scan of the Brain Without Contrast Location Code M12 History: UNRESPONSIVE Technique: Scans were performed on a helical scanner pre IV contrast only. The study is limited secondary to lack of intravenous contrast, particularly for evaluation of masses. One or more of the following dose reduction techniques were used: Automated exposure control, adjustment of the mA and/or kV according to patient size, and/or utilization of iterative reconstruction technique. Findings: There is no hydr ocephalus. Basal cisterns are patent. There is no intracranial hyperdense hemorrhage. There is no midline shift or mass effect. No effacement of the monahan-white matter junction to indicate acute infarction. There are chronic ischemic white matter changes. There is no skull fracture. Impression: No acute intracranial CT findings. Sen escent changes. at 0344 Reported and signed by: Jan Schneider M.D. CC: Ryan Hendrickson Linda MD Technologist:Madan Quintero(Madan)(CT) CTDI: DLP: Trnscb Date/Time: 11/19/2018 (343) Norman [email or web address] Orig Print D/T: S: 11/19/2018 (0347) PAGE 1 Signed Report [id number] 02:35:00* Test Item Value Reference Range Comments GLUBED (test code=GLUBED) 122 mg/dL 74-106 Performed by certified protective signal operator at [facility] [id number] 20:52:00* Test Item Value Reference Range Comments GLUBED (test code=GLUBED) 133 mg/dL 74-106 Performed by certified protective signal operator at [facility]ified Nurse~ [id number] 17:42:00* Test Item Value Reference Range Comments GLUBED (test code=GLUBED) 124 mg/dL 74-106 Performed by certified protective signal operator at [facility] [id number] 16:55:00* Test Item Value Reference Range Comments GLUBED (test code=GLUBED) 115 mg/dL 74-106 Performed by certified protective signal operator at [facility] [id number] 12:02:00* Test Item Value Reference Range Comments GLUBED (test code=GLUBED) 213 mg/dL 74-106 Performed by certified protective signal operator at [facility] [id number] 05:39:00* Test Item Value Reference Range Comments GLUBED (test code=GLUBED) 171 mg/dL 74-106 Performed by certified protective signal operator at [facility] BASIC METABOLIC [id number] 05:24:00* Test Item Value Reference Range Comments SODIUM (test code=NA) 142 mmol/L 136-145 POTASSIUM (test code=K) 4.4 mmol/L 3.5-5.1 CHLORIDE (test code=CL) 109.0 mmol/L 98-107 CARBON DIOXIDE (test code=CO2) 29.0 mmol/L 21-32 ANION GAP (test code=GAP) 8.4 10-20 GLUCOSE (test code=GLU) 168 mg/dL 74-106 BLOOD UREA NITROGEN (test code=BUN) 15 mg/dL 7-18 GLOMERULAR FILTRATION RATE (test code=GFR) > 60 mL/min >=60 Estimated GFR by using Modified MDRD formula.Chronic kidney disease is defined as either kidney damageor GFR <60 mL/min/1.73 m2 for >3 months. CREATININE (test code=CREAT) 0.90 mg/dL 0.7-1.3 BUN/CREATININE RATIO (test code=BUN/CREA) 16.7 10-20 CALCIUM (test code=CA) 8.7 mg/dL 8.5-10.1 BASIC METABOLIC [id number] 05:18:00* Test Item Value Reference Range Comments SODIUM (test code=NA) 142 mmol/L 136-145 POTASSIUM (test code=K) 4.4 mmol/L 3.5-5.1 CHLORIDE (test code=CL) 109.0 mmol/L 98-107 CARBON DIOXIDE (test code=CO2) mmol/L 21-32 ANION GAP (test code=GAP) 10-20 GLUCOSE (test code=GLU) mg/dL 74-106 BLOOD UREA NITROGEN (test code=BUN) mg/dL 7-18 GLOMERULAR FILTRATION RATE (test code=GFR) mL/min >=60 CREATININE (test code=CREAT) mg/dL 0.7-1.3 BUN/CREATININE RATIO (test code=BUN/CREA) 10-20 CALCIUM (test code=CA) mg/dL 8.5-10.1 CBC W/AUTO [id number] 05:18:00* Test Item Value Reference Range Comments WHITE BLOOD CELL (test code=WBC) 7.8 K/mm3 4.5-12.5 RED BLOOD CELL (test code=RBC) 3.39 mill/mm3 4.0-5.8 HEMOGLOBIN (test code=HGB) 10.7 gram/dL 13.0-17.5 HEMATOCRIT (test code=HCT) 33.5 % 42.0-52.0 MEAN CELL VOLUME (test code=MCV) 98.8 fL 80-98 MEAN CELL HGB (test code=MCH) 31.6 picogram 27.0-33.0 MEAN CELL HGB CONCETRATION (test code=MCHC) 31.9 gram/dL 33.0-36.0 RED CELL DISTRIBUTION WIDTH (test code=RDW) 12.8 % 11.6-16.2 RED CELL DISTRIBUTION WIDTH SD (test code=RDW-SD) 46.3 fL 37.0-51.0 PLATELET COUNT (test code=PLT) 297 K/mm3 150-450 RESULT VERIFIED BY REPEAT ANALYSIS MEAN PLATELET VOLUME (test code=MPV) 9.8 fL 6.7-11.0 NEUTROPHIL % (test code=NT%) 66.4 % 39.0-69.0 IMMATURE GRANULOCYTE % (test code=IG%) 0.8 % 0.0-5.0 LYMPHOCYTE % (test code=LY%) 23.3 % 25.0-55.0 MONOCYTE % (test code=MO%) 6.6 % 0.0-10.0 EOSINOPHIL % (test code=EO%) 2.1 % 0.0-5.0 BASOPHIL % (test code=BA%) 0.8 % 0.0-1.0 NUCLEATED RBC % (test code=NRBC%) 0.0 % 0-0 NEUTROPHIL # (test code=NT#) 5.17 K/mm3 1.8-7.7 IMMATURE GRANULOCYTE # (test code=IG#) 0.06 x10 3/uL 0-0.03 LYMPHOCYTE # (test code=LY#) 1.81 K/mm3 1.0-5.0 MONOCYTE # (test code=MO#) 0.51 K/mm3 0-0.8 EOSINOPHIL # (test code=EO#) 0.16 K/mm3 0.0-0.5 BASOPHIL # (test code=BA#) 0.06 K/mm3 0.0-0.2 NUCLEATED RBC # (test code=NRBC#) 0.00 K/mm3 0.0-0.1 - XR FOOT 2 VIEWS [id number] 22:02:00 FAX: Ced Carrera DPM [phone] [place]: St: ADM FAX: Maikol Hendrickson [facility] [phone] Name: MARLEN NOLAND [facility] : 1945 Age/S: 73/M [address] [facility] Unit #: [id number] Loc: [place] [address] Phys: Ced Thomas DPM Acct: [id number] Dis Date: Status: ADM IN PHONE #: [phone] Exam Date: 11/17/20182144 FAX #: [phone] Reason: GREAT TOE EXAMS: CPT CODE: [id number] XR FOOT 2 VIEWS 78719 CLINICAL HISTORY: GREAT TOE TECHNIQUE: AP, oblique, and lateral views of the the bilateral feet COMPARISON: None FINDINGS: No acute fracture or dislocation. Bony trabe cular pattern is unremarkable. No cortical destruction or periosteal react ion. Joint spaces are preserved. Vascular calcific ations are present throughout both feet. Small enthesophyte is present on the left calcaneus. IMPRESSION: No rad iographically evident acute bony abnormality. Peripheral vascular diseas e in both feet. Electronically Signed by Thor Davis MD on 9 at 2202 Reported and signed by: Thor Davis MD CC: Ced Thomas DPM; Maikol Hendrickson Technologi st: Marlen PORTILLO(R); Tasha Arnold(R) Trnscrd Date/Time/By: 11/17/2018 (2201) : By: [email or web address] Orig Print D/T: S: 11/17/2018 (8) PAGE 1 Signed Report [id number] 20:46:00* Test Item Value Reference Range Comments GLUBED (test code=GLUBED) 102 mg/dL 74-106 Performed by certified protective signal operator at [facility] [id number] 17:06:00* Test Item Value Reference Range Comments GLUBED (test code=GLUBED) 318 mg/dL 74-106 Performed by certified protective signal operator at [facility] [id number] 14:13:00* Test Item Value Reference Range Comments TROPONIN-I (test code=TROPI) <0.015 ng/mL 0-0.045 COMMENTS TO FINANCIAL PLANNING ASSISTANT: COLLECT 3 HOURS AFTER PREVIOUS [id number] 12:47:00* Test Item Value Reference Range Comments GLUBED (test code=GLUBED) 140 mg/dL 74-106 Performed by certified protective signal operator at [facility] [id number] 09:29:00* Test Item Value Reference Range Comments TROPONIN-I (test code=TROPI) <0.015 ng/mL 0-0.045 COMMENTS TO FINANCIAL PLANNING ASSISTANT: COLLECT 3 HOURS AFTER PREVIOUS [id number] 07:42:00* Test Item Value Reference Range Comments GLUBED (test code=GLUBED) 243 mg/dL 74-106 Performed by certified protective signal operator at [facility] [id number] 07:42:00* Test Item Value Reference Range Comments GLUBED (test code=GLUBED) 493 mg/dL 74-106 Performed by certified protective signal operator at [facility] URINALYSIS [id number] 01:45:00* Test Item Value Reference Range Comments UA COLOR (test code=COLU) Light-Yellow YELLOW UA APPEARANCE (test code=APPU) Cloudy CLEAR UA GLUCOSE DIPSTICK (test code=DGLUU) NEGATIVE mg/dL NEGATIVE UA BILIRUBIN DIPSTICK (test code=BILU) NEGATIVE mg/dL NEGATIVE UA KETONE DIPSTICK (test code=KETU) NEGATIVE mg/dL NEGATIVE UA SPECIFIC GRAVITY (test code=SGU) 1.007 1.001-1.035 UA BLOOD DIPSTICK (test code=SRINIVASAN) Negative mg/dL NEGATIVE UA PH DIPSTICK (test code=ANAY) 5.5 5.0-8.0 UA PROTEIN DIPSTICK (test code=PROU) NEGATIVE mg/dL NEGATIVE UA UROBILINIOGEN DIPSTICK (test code=URO) Normal mg/dL NEGATIVE UA NITRITE DIPSTICK (test code=RANDY) NEGATIVE NEGATIVE UA LEUKOCYTE ESTERASE W REFLEX (test code=LEUUR) 250 Kiya/uL (2+) Kiya/uL NEGATIVE UA WBC (test code=WBCU) 6-10 per HPF 0-5 UA RBC (test code=RBCU) 0-2 #/HPF 0-5 UA WBC CLUMPS (test code=WBCUCL) 3-6 /HPF NONE UA EPITHELIAL CELLS (test code=EPIU) FEW per HPF FEW UA BACTERIA (test code=BACU) FEW #/HPF NONE UA HYALINE CAST (test code=HYALU) 6-10 #/LPF 0-5 UA MUCUS (test code=MUCU) FEW #/LPF FEW UA AMORPHOUS SEDIMENT (test code=AMORU) FEW #/LPF Urine Source? Clean CatchURINALYSIS [id number] 01:29:00* Test Item Value Reference Range Comments UA COLOR (test code=COLU) Light-Yellow YELLOW UA APPEARANCE (test code=APPU) Cloudy CLEAR UA GLUCOSE DIPSTICK (test code=DGLUU) NEGATIVE mg/dL NEGATIVE UA BILIRUBIN DIPSTICK (test code=BILU) NEGATIVE mg/dL NEGATIVE UA KETONE DIPSTICK (test code=KETU) NEGATIVE mg/dL NEGATIVE UA SPECIFIC GRAVITY (test code=SGU) 1.007 1.001-1.035 UA BLOOD DIPSTICK (test code=SRINIVASAN) Negative mg/dL NEGATIVE UA PH DIPSTICK (test code=ANAY) 5.5 5.0-8.0 UA PROTEIN DIPSTICK (test code=PROU) NEGATIVE mg/dL NEGATIVE UA UROBILINIOGEN DIPSTICK (test code=URO) Normal mg/dL NEGATIVE UA NITRITE DIPSTICK (test code=RANDY) NEGATIVE NEGATIVE UA LEUKOCYTE ESTERASE W REFLEX (test code=LEUUR) 250 Kiya/uL (2+) Kiya/uL NEGATIVE UA WBC (test code=WBCU) per HPF 0-5 UA RBC (test code=RBCU) per HPF 0-5 UA EPITHELIAL CELLS (test code=EPIU) per HPF Few UA BACTERIA (test code=BACU) per HPF NONE Urine Source? Clean Catch- CT C-SPINE W/O [id number] 00:52:00 Name: MARLEN NOLAND [facility] : 1945 Age/S: 73 / M [address] [facility] Unit #: [id number] Loc: [place] [address] Phys: Raghav Mena MD Acct: [id number] Di s Date: Status: REG ER PHONE #: Exam Date: 11/16/2018 2314 FAX #: [phone] Reason: fall, headache EXAMS: CPT CODE: [id number] CT C-SPINE W/O CONTRAST 10237 AFTER HOURS SERVICE ON: 12:46 AM *Study available for review with full set of luann ges on PACS at 12:[address] of the Cervical S pine Without Contrast Location Code M12 History: fal l, headache Technique: Scans were obtained on a helical scanner p re IV contrast only. One or more of the following dose redu ction techniques were used: Automated exposure control, adjustment of the mA and/or kV according to patient size, and/or utilization of iterative re construction technique. Findings: Craniocervi kay junction is intact. Atlantoaxial joint is unremarkable. C1 ring is no rmal. Prominent nutrient channels noted in the C2 vertebral body. Dens i s intact. Transverse processes, pedicles and lamina are intact. No mike urmila fracture or pathologic lesions. There is osteopenia. Advanced multi level endplate spurs and disc space narrowing noted throughout the cervica l spine. Multilevel moderate to advanced foraminal stenoses also noted du e to uncovertebral hypertrophy. There is moderate to severe central canal stenosis and C5-C6 and moderate central canal stenosis and C6-C7. Impression: Advanced cervical spondylosis. No fractu re. at 0052 Reported and signed by: Jan Schneider M.D. PAGE 1 Signed Report (CONTINUED) Name: MARLEN NOLAND [facility] : 1945 Age/S: 73 / M [address] Unit #: [id number] Loc: [place] [address] Phys: Tamika Mena MD Acct: [id number] Dis Date: Status: REG ER PHONE #: [phone] Exam Date: 11/16/2018 2318 FAX #: [phone] Reason: fall, head ache EXAMS: CPT CODE: [id number] CT C-SPINE W/O CONTRAST 34523 <Continued> CC: Tamika Mena MD Technologist:RT JANES CTDI: DLP: Trnscb Date/Time: 11/17/2018 (51) [email or web address] Orig Print D/T: S: 11/17/2018 (54) PAGE 2 Signed Report - CT CHEST W/O [id number] 00:24:00 Name: MARLEN NOLAND [facility] : 1945 Age/S: 73 / M [address] Unit #: [id number] Loc: [place] [address] Phys: Tamika Mena MD Acct: [id number] Dis Date: Status: REG ER PHONE #: [phone] Exam Date: 11/16/2018 2359 FAX #: [phone] Reason: fall, back pain, vomiting EXAMS: CPT CODE: [id number] CT CHEST W/O CONTRAST 72101 AFTER HOURS SERVICE ON: 11/17/2018 12:[address] Scan of the Chest Without Contrast Location Code M12 History: fall, back pain, vomiting Technique: Axial and reconstructed coronal and sagittal scans were performed on a helical scanner pre IV contrast only. Study is limited secondary to lack of IV contrast. One or more of the following dose reduction techniques were used: Automated exposure control, adjustment of the mA and/or kV according to patient size, and/or utilization of iterative reconstruction technique. Findings: Lungs and Pleura: There is no pneumothorax, infiltrate or contusion. Small 4 mm nodular-like scarring is noted in the left upper lobe along the periphery. Additional linear scarring noted in the right lung apex. There is pleural thickening and pleural-based calcifications in the right lower lobe with a small pleural effusion. There is slight motion degradation. Mediastinum: There is no cardiomegaly or pericardial effusion. Atherosclerosis noted in aorta and coronary arteries. Other: There is no rib fracture. Impression: No acute traumatic findings in the chest. AFTER HOURS SERVICE ON: 11/17/2018 12:[address] Scan of the Abdomen and Pelvis Without Contrast Location Code M12 PAGE 1 Signed Report (CONTINUED) Name: MARLEN NOLAND [facility] : 1945 Age/S: 73 / M [address] [facility] Unit #: [id number] Loc: [place] [address] Phys: Tamika Mena MD Acct: [id number] Dis Date: Status: REG ER PHONE #: [phone] Exam Date: 11/16/2018 7724 FAX #: [phone] Reason: fall, back pain, vomiting EXAMS: CPT CODE: [id number] CT CHEST W/O CONTRAST 46062 <Continued> History: fall, back pain, vomiting Technique: Axial and reconstructed coronal and sagittal scans were performed on a helical scanner pre oral and IV contrast. Study is limited secondary to lack of oral and IV contrast. Evaluation for laceration is limited without IV contrast. One or more of the following dose reduction techniques were used: Automated exposure control, adjustment of the mA and/or kV according to patient size, and/or utilization of iterative reconstruction technique. Findings: LIVER: There is no perihepatic free fluid. GALLBLADDER/BILIARY: No significant findings. PANCREAS: No significant findings. SPLEEN: There is no perisplenic free fluid. ADRENALS: No significant findings. KIDNEYS: No nephrolithiasis or hydronephrosis. BLADDER: No significant findings. GASTROINTESTINAL: No significant findings. The appendix is unremarkable. OTHER: There is no pelvic fracture. IMPRESSION: No acute traumatic findings in the abdomen or pelvis. at 0024 Reported and signed by: Jan Schneider M.D. CC: Tamika Mena MD Technologist:RT JANES CTDI: DLP: Trnscb Date/Time: 11/17/2018 (23) [email or web address] Orig Print D/T: S: 11/17/2018 (002) PAGE 2 Signed Report - CT ABD PELVIS W/O [id number] 00:24:00 Name: MARLEN NOLAND [facility] : 1945 Age/S: 73 / M [address] [facility] Unit #: [id number] Loc: [place] [address] Phys: Tamika Mena MD Acct: [id number] Dis Date: Status: REG ER PHONE #: [phone] Exam Date: 11/16/2018 2355 FAX #: [phone] Reason: fall, back pain, vomiting EXAMS: CPT CODE: [id number] CT ABD PELVIS W/O CONT 26654 AFTER HOURS SERVICE ON: 11/17/2018 12:[address] Scan of the Chest Without Contrast Location Code M12 History: fall, back pain, vomiting Technique: Axial and reconstructed coronal and sagittal scans were performed on a helical scanner pre IV contrast only. Study is limited secondary to lack of IV contrast. One or more of the following dose reduction techniques were used: Automated exposure control, adjustment of the mA and/or kV according to patient size, and/or utilization of iterative reconstruction technique. Findings: Lungs and Pleura: There is no pneumothorax, infiltrate or contusion. Small 4 mm nodular-like scarring is noted in the left upper lobe along the periphery. Additional linear scarring noted in the right lung apex. There is pleural thickening and pleural-based calcifications in the right lower lobe with a small pleural effusion. There is slight motion degradation. Mediastinum: There is no cardiomegaly or pericardial effusion. Atherosclerosis noted in aorta and coronary arteries. Other: There is no rib fracture. Impression: No acute traumatic findings in the chest. AFTER HOURS SERVICE ON: 11/17/2018 12:[address] Scan of the Abdomen and Pelvis Without Contrast Location Code M12 PAGE 1 Signed Report (CONTINUED) Name: MARLEN NOLAND [facility] : 1945 Age/S: 73 / M [address] [facility] Unit #: [id number] Loc: [place] [address] Phys: Tamika Mena MD Acct: [id number] Dis Date: Status: REG ER PHONE #: [phone] Exam Date: 11/16/2018 2350 FAX #: [phone] Reason: fall, back pain, vomiting EXAMS: CPT CODE: [id number] CT ABD PELVIS W/O CONT 86241 <Continued> History: fall, back pain, vomiting Technique: Axial and reconstructed coronal and sagittal scans were performed on a helical scanner pre oral and IV contrast. Study is limited secondary to lack of oral and IV contrast. Evaluation for laceration is limited without IV contrast. One or more of the following dose reduction techniques were used: Automated exposure control, adjustment of the mA and/or kV according to patient size, and/or utilization of iterative reconstruction technique. Findings: LIVER: There is no perihepatic free fluid. GALLBLADDER/BILIARY: No significant findings. PANCREAS: No significant findings. SPLEEN: There is no perisplenic free fluid. ADRENALS: No significant findings. KIDNEYS: No nephrolithiasis or hydronephrosis. BLADDER: No significant findings. GASTROINTESTINAL: No significant findings. The appendix is unremarkable. OTHER: There is no pelvic fracture. IMPRESSION: No acute traumatic findings in the abdomen or pelvis. at 0024 Reported and signed by: Jan Schneider M.D. CC: Tamika Mena MD Technologist:RT JANES CTDI: DLP: Trnscb Date/Time: 11/17/2018 (23) [email or web address] Orig Print D/T: S: 11/17/2018 (26) PAGE 2 Signed Report B- TYPE NATRIURETIC [id number] 23:50:00* Test Item Value Reference Range Comments B-TYPE NATRIURETIC PEPTIDE (test code=BNP) 27.47 pgram/mL 0-100 - CT HEAD/BRAIN W/O [id number] 23:42:00 Name: MARLEN NOLAND [facility] : 1945 Age/S: 73 / M [address] Unit #: [id number] Loc: [place] [address] Phys: Tamika Mena MD Acct: [id number] Dis Date: Status: REG ER PHONE #: [phone] Exam Date: 11/16/2018 2310 FAX #: [phone] Reason: fall, headache EXAMS: CPT CODE: [id number] CT HEAD/BRAIN W/O CONT 99292 AFTER HOURS SERVICE ON: 11/16/2018 11:[address] Scan of the Brain Without Contrast Location Code M12 History: fall, headache Technique: Scans were performed on a helical scanner pre IV contrast only. The study is limited secondary to lack of intravenous contrast, particularly for evaluation of masses. One or more of the following dose reduction techniques were used: Automated exposure control, adjustment of the mA and/or kV according to patient size, and/or utilization of iterative reconstruction technique. Findings: There is no hydrocephalus. Basal cisterns are patent. There is no intracranial hyperdense hemorrhage. There is no midline shift or mass effect. No effacement of the monahan-white matter junction to indicate acute infarction. There are chronic ischemic white matter changes. There is no skull fracture. Impression: No acute intracranial CT findings. at 2342 Reported and signed by: Jan Schneider M.D. CC: Tamika Mena MD Technologist:RT JANES CTDI: DLP: Trnscb Date/Time: 11/16/2018 (2342) [email or web address] Orig Print D/T: S: 11/16/2018 (2951) PAGE 1 Signed Report PROCALCITONIN (PCT)2018-11-16 23:41:00* Test Item Value Reference Range Comments PROCALCITONIN (PCT) (test code=PROCAL) 0.11 ng/ml Concentration Interpretation (ng/mL) <0.51 Sepsis is not likely. Local bacterial infection is possible. (LOW RISK for progression to Sepsis) 0.51 - 2.00 Sepsis is possible, but other conditions are known to elevate PCT as well. (MODERATE RISK for progression to Sepsis) > 2.00 Sepsis is likely, unless other causes are known. (HIGH RISK for progression to Severe Sepsis or Septic Shock) 10.00 High likelihood of Severe Sepsis or Septic or higher Shock. *Increased PCT levels may not always be related to systemic bacterial infection.*Low PCT levels do not automatically exclude the presence of bacterial infection.*All results should be interpreted taking into account the patients history. BASIC METABOLIC [id number] 23:38:00* Test Item Value Reference Range Comments SODIUM (test code=NA) 137 mmol/L 136-145 POTASSIUM (test code=K) 4.2 mmol/L 3.5-5.1 CHLORIDE (test code=CL) 103.0 mmol/L 98-107 CARBON DIOXIDE (test code=CO2) 27.0 mmol/L 21-32 ANION GAP (test code=GAP) 11.2 10-20 GLUCOSE (test code=GLU) 154 mg/dL 74-106 BLOOD UREA NITROGEN (test code=BUN) 21 mg/dL 7-18 GLOMERULAR FILTRATION RATE (test code=GFR) 46 mL/min >=60 Estimated GFR by using Modified MDRD formula.Chronic kidney disease is defined as either kidney damageor GFR <60 mL/min/1.73 m2 for >3 months. CREATININE (test code=CREAT) 1.50 mg/dL 0.7-1.3 BUN/CREATININE RATIO (test code=BUN/CREA) 14.4 10-20 CALCIUM (test code=CA) 7.9 mg/dL 8.5-10.1 HEPATIC FUNCTION [id number] 23:38:00* Test Item Value Reference Range Comments TOTAL PROTEIN (test code=PROT) 6.4 gram/dL 6.4-8.2 ALBUMIN (test code=ALB) 2.7 g/dL 3.4-5.0 GLOBULIN (test code=GLOB) 3.7 gram/dL 2.7-4.2 ALBUMIN/GLOBULIN RATIO (test code=A/G) 0.7 0.75-1.50 BILIRUBIN TOTAL (test code=BILT) 0.20 mg/dL 0.0-1.0 BILIRUBIN DIRECT (test code=BILD) 0.10 mg/dL 0.0-0.20 SGOT/AST (test code=AST) 10 IUnit/L 15-37 SGPT/ALT (test code=ALT) 11 IUnit/L 12-78 ALKALINE PHOSPHATASE TOTAL (test code=ALKP) 64 IUnit/L 45-117 Note change in reference range due to change in reagent. [id number] 23:38:00* Test Item Value Reference Range Comments LIPASE (test code=LIP) 104 U/L 73.0-393.0 [id number] 23:38:00* Test Item Value Reference Range Comments MAGNESIUM (test code=MAG) 1.3 mg/dL 1.8-2.4 [id number] 23:38:00* Test Item Value Reference Range Comments TROPONIN-I (test code=TROPI) <0.015 ng/mL 0-0.045 LACTIC [id number] 23:38:00* Test Item Value Reference Range Comments LACTIC ACID (test code=LACT) 1.2 mmol/L 0.4-1.9 - XR CHEST 1 [id number] 23:32:00 FAX: Tamika Rodriguez [phone] [place]: B St: REG Name: MARLEN RODGERS [facility] : [birth year] Age/S: 73/M [address] [facility] Unit #: [id number] Loc: [place] [address] Phys: Tamika Mena MD Acct: [id number] Dis Date: Status: REG ER PHONE #: [phone] Exam Date: 11/16/2018 2313 FAX #: [phone] Reason: WEAKNESS EXAMS: CPT CODE: [id number] XR CHEST 1 V [id number] REASON FOR EXAM: WEAKNESS Exam Order Date: 11/16/2018 10:42 PM Ordering M.D.: Ryan Mena MD PROCEDURE: - XR CHEST 1 V COMP ARISON: AP chest x-ray January 01, 2016 FINDINGS: There is chronic elevation of the right hemidiaphragm. There is also mild subsegmen gia atelectasis in the lung bases that is unchanged from the previous exam . Surgical sutures are again seen in the right upper lobe, similar to the previous study. Cardiomediastinal silhouette is normal in size for technique. Atherosclerotic disease is present in the aortic arch. Mediast inal surgical clips are present. Sternotomy wires and mild d egenerative changes of the spine appear similar to the previous exam. The visualized upper abdomen is within normal limits. IMPRESSION: No acute cardiopulmonary process. Chronic elevation of the right hemidiaphragm. at 2331 Reported and signed by: Thor Davis MD CC: Tamika Mena MD Techn ologist: ZEE FAYE, RT Trnscrd Date/Ángel e/By: 11/16/2018 (2372) : By: [email or web address] Orig Print D/T: S: 11/16/2018 (9197) PAGE 1 Signed Report BASIC METABOLIC [id number] 23:26:00* Test Item Value Reference Range Comments SODIUM (test code=NA) 137 mmol/L 136-145 POTASSIUM (test code=K) 4.2 mmol/L 3.5-5.1 CHLORIDE (test code=CL) 103.0 mmol/L 98-107 CARBON DIOXIDE (test code=CO2) mmol/L 21-32 ANION GAP (test code=GAP) 10-20 GLUCOSE (test code=GLU) mg/dL 74-106 BLOOD UREA NITROGEN (test code=BUN) mg/dL 7-18 GLOMERULAR FILTRATION RATE (test code=GFR) mL/min >=60 CREATININE (test code=CREAT) mg/dL 0.7-1.3 BUN/CREATININE RATIO (test code=BUN/CREA) 10-20 CALCIUM (test code=CA) mg/dL 8.5-10.1 HEPATIC FUNCTION [id number] 23:26:00* Test Item Value Reference Range Comments TOTAL PROTEIN (test code=PROT) gram/dL 6.4-8.2 ALBUMIN (test code=ALB) g/dL 3.4-5.0 GLOBULIN (test code=GLOB) gram/dL 2.7-4.2 ALBUMIN/GLOBULIN RATIO (test code=A/G) 0.75-1.50 BILIRUBIN TOTAL (test code=BILT) mg/dL 0.0-1.0 BILIRUBIN DIRECT (test code=BILD) mg/dL 0.0-0.20 SGOT/AST (test code=AST) IUnit/L 15-37 SGPT/ALT (test code=ALT) IUnit/L 12-78 ALKALINE PHOSPHATASE TOTAL (test code=ALKP) IUnit/L 45-117 [id number] 23:26:00* Test Item Value Reference Range Comments LIPASE (test code=LIP) U/L 73.0-393.0 [id number] 23:26:00* Test Item Value Reference Range Comments MAGNESIUM (test code=MAG) mg/dL 1.8-2.4 [id number] 23:26:00* Test Item Value Reference Range Comments TROPONIN-I (test code=TROPI) ng/mL 0-0.045 PROTHROMBIN [id number] 23:23:00* Test Item Value Reference Range Comments PROTHROMBIN TIME PATIENT (test code=PTP) 11.7 seconds 9.0-14.0 INTERNATIONAL NORMAL RATIO (test code=INR) 1.0 0.8-1.2 The therapeutic range for oral anticoagulant therapy formost indications is an international normalized ratio (INR)of between 2.0 and 3.0. The recommended therapeutic INRrange for various clinical situations is listed below: Clinical Situation INR range Pulmonary e mbolism treatment (2.0-3.0)Venous thrombosis treatmentVenous thrombosis prophylaxis (high risk surgery)Prevention of systemic embolism from: Acute myocardial infarction Valvular heart disease Atrial fibrillation Mechanical prosthetic heart valves (2.5-3.5) IS PATIENT ON ANTICOAGULANTS? NTHROMBOPLASTIN TIME [id number] 23:23:00* Test Item Value Reference Range Comments THROMBOPLASTIN TIME PARTIAL (test code=PTT) 28.8 seconds 25.0-36.5 IS PATIENT ON ANTICOAGULANTS? NCBC W/O [id number] 23:10:00* Test Item Value Reference Range Comments WHITE BLOOD CELL (test code=WBC) 8.9 K/mm3 4.5-12.5 RED BLOOD CELL (test code=RBC) 3.16 mill/mm3 4.0-5.8 HEMOGLOBIN (test code=HGB) 9.9 gram/dL 13.0-17.5 HEMATOCRIT (test code=HCT) 30.3 % 42.0-52.0 MEAN CELL VOLUME (test code=MCV) 95.9 fL 80-98 MEAN CELL HGB (test code=MCH) 31.3 picogram 27.0-33.0 MEAN CELL HGB CONCETRATION (test code=MCHC) 32.7 gram/dL 33.0-36.0 RED CELL DISTRIBUTION WIDTH (test code=RDW) 12.8 % 11.6-16.2 PLATELET COUNT (test code=PLT) 348 K/mm3 150-450 MEAN PLATELET VOLUME (test code=MPV) 9.5 fL 6.7-11.0 POC LACTIC [id number] 23:03:00* Test Item Value Reference Range Comments POC LACTIC ACID (test code=POCLAC) 1.02 MMOL/L 0.4-2.2 POCT-GLUCOSE [id number] 07:40:00* Test Item Value Reference Range Comments POC-GLUCOSE METER (BEAKER) (test yugn=0127) 183 mg/dL 70-110 TESTED AT [facility] [address] [facility] [address] POCT-GLUCOSE [id number] 21:37:00* Test Item Value Reference Range Comments POC-GLUCOSE METER (JAEL) (test prpc=8968) 284 mg/dL 70-110 TESTED AT [facility] [address] [facility] [address] MR, SPINE, LUMBAR, WITHOUT [id number] 17:25:00FINAL REPORT MRI lumbar spine without contrast 06/11/2018 at 1647. CLINICAL HISTORY: Low back pain. TECHNIQUE: MRI of the lumbar spine was performed, utilizing the following sequences: Sagittal T1, T2, STIR; axial T1 and T2. COMPARISON: None available. FINDINGS: There is mild arcuate levoscoliosis, apex at L3-4. There are changes of posterior decompression with interbody fusion at L4-S1. There is no fracture or traumatic malalignment. Bone marrow signal intensity is unremarkable. The conus medullaris terminates at the level of the L1-2 intervertebral disc. The distal spinal cord and terminal nerve roots are unre markable. Spinal canal diameter is within normal limits. At L2-3, dorsal disc os teophyte complex, facet joint arthropathy, and posterior ligamentous thickening contribute to severe central canal stenosis, with mild right and moderate left f oraminal stenosis. At L3-4, dorsal disc osteophyte complex, facet joint arthropa thy, and posterior ligamentous thickening contribute moderate central canal sten osis, with moderate right and mild left foraminal stenosis. At L4-5 and L5-S1, t here is no residual foraminal stenosis. There are decompressive laminectomies. T here is substantial deconditioning of the posterior paraspinal musculature. Ther e are simple appearing cysts in both kidneys. IMPRESSION: 1. No fracture or trau matic malalignment.2. Chronic appearing postoperative and degenerative changes a s discussed. Signed: Shayna Verma Verified Date/Time: 06/11/2018 17 :25:41 Reading Location: [facility] C013V Neuro Reading Room Electronically kathi d by: SHAYNA VERMA M.D. on 06/11/2018 05:25 PM POCT-GLUCOSE [id number] 12:52:00* Test Item Value Reference Range Comments POC-GLUCOSE METER (STEPHONAKER) (test zthq=5714) 178 mg/dL 70-110 TESTED AT [facility] [address] [facility] [address] HEMOGLOBIN [id number] 09:23:00* Test Item Value Reference Range Comments HEMOGLOBIN A1C (JAEL) (test eenl=856) 7.4 % 4.3-6.1 POCT-GLUCOSE [id number] 07:02:00* Test Item Value Reference Range Comments POC-GLUCOSE METER (JAEL) (test nvxg=0394) 236 mg/dL 70-110 TESTED AT [place] [id number] [facility] [address] MR, MRA, BRAIN, WITHOUT [id number] 04:57:00Reason for exam:->Ischemic Stroke EvaluationFINAL REPORT MRA head and neck without contrast. CLINICAL HISTORY: Stroke. Ischemic stroke evaluation. COMPARISON: MRA head and neck 06/19/[address] angiography of head and neck 04/29/2017. TECHNIQUE: Two- and three-dimensional mhgx-gc-dijhqz MRA images of the intra- and extracranial carotid and vertebral arterial circulations were obtained, from which maximal intensity projection 3-D reconstructions were created. FINDINGS: MRA neck: The study is limited by motion artifact. There is mild short segment stenosis of the right carotid bifurcation. There is mild short segment stenosis proximal right cervical ICA from its origin of approximately 13% by NASCET criteria. There is moderate short segment stenosis of the proximal left cervical ICA, (60% by NASCET criteria). There is no vessel occlusion. Flow is antegrade in both vertebral arteries. MRA [place]: There is no vessel occlusion or flow-limiting stenosis in the intracranial carotid or vertebrobasilar arterial circulations. There is no definite intracranial aneurysm. IMPRESSION: Neck MRA: Motion limited exam. Mild short segment stenosis of the right carotid bulb and proximal right cervical ICA. Moderate short segment stenosis of the proximal left cervical ICA. No vessel occlusion.Intracranial MRA: No vessel occlusion or flow-limiting stenosis. Signed: Isaiah Bundy MDReport Verified Date/Time: 06/11/2018 04:57:39 Reading Location: [address] Body Reading Room , MRA, NECK, WITHOUT IV [id number] 04:57:00Reason for exam:-> Ischemic Stroke EvaluationFINAL REPORT MRA head and neck without contrast. CLINICAL HISTORY: Stroke. Ischemic stroke evaluation. COMPARISON: MRA head and neck 06/19/[address] angiography of head and neck 04/29/2017. TECHNIQUE: Two- and three-dimensional dnjb-ds-lvnsla MRA images of the intra- and extracranial carotid and vertebral arterial circulations were obtained, from which maximal intensity projection 3-D reconstructions were created. FINDINGS: MRA neck: The study is limited by motion artifact. There is mild short segment stenosis of the right carotid bifurcation. There is mild short segment stenosis proximal right cervical ICA from its origin of approximately 13% by NASCET criteria. There is moderate short segment stenosis of the proximal left cervical ICA, (60% by NASCET criteria). There is no vessel occlusion. Flow is antegrade in both vertebral arteries. MRA [place]: There is no vessel occlusion or flow-limiting stenosis in the intracranial carotid or vertebrobasilar arterial circulations. There is no definite intracranial aneurysm. IMPRESSION: Neck MRA: Motion limited exam. Mild short segment stenosis of the right carotid bulb and proximal right cervical ICA. Mode rate short segment stenosis of the proximal left cervical ICA. No vessel occlusi on.Intracranial MRA: No vessel occlusion or flow-limiting stenosis. Signed: Isaiah Bundy [facility] Verified Date/Time: 06/11/2018 04:57:39 Reading Locatio n: [facility] B1 C013Y CT Body Reading Room , BRAIN, WITHOUT [id number] 04:42:00 Reason for exam:->Ischemic Stroke EvaluationFINAL REPORT Exam: MRI brain without contrast. Comparison: Brain MRI 06/19/2012. Clinical indication: Stroke. Ischemic Stroke Evaluation Technique: Multiplanar multi sequential MR imaging of the brain was performed without the administration of intravenous contrast. Findings:There is generalized parenchymal atrophy. There are mild to moderate white matter microvascular ischemic changes. There is a punctate lacunar infarct in the left posterior periventricular white matterThere is no intracranial mass, mass effect, extra-axial collection, hydrocephalus or herniation. There is no restricted diffusion to suggest an acute infarct. There is no abnormality on susceptibility sequences to suggest hemorrhage or hemosiderin deposition. The skull base flow-voids are seen in keeping with their patency. The visualized paranasal sinuses and mastoid air cells are clear. The orbits, sella and parasellar regions are unremarkable. The craniocervical junction is normal. Impression:No acute infarct, acute intracranial hemorrhage or mass effect. White matter microvascular ischemic changes. Signed: Isaiah Bundyort Verified Date/Time: 06/11/2018 04:42:05 Reading Location: [facility] B1 C013Y CT Body Reading Room D [id number] 03:33:00* Test Item Value Reference Range Comments TRIGLYCERIDES (BEAKER) (test pszg=526) 245 mg/dL CHOLESTEROL (BEAKER) (test ssog=570) 107 mg/dL HDL CHOLESTEROL (BEAKER) (test mbrs=042) 30 mg/dL LDL CHOLESTEROL CALCULATED (BEAKER) (test dwhp=289) 28 mg/dL Triglyceride Reference Range: Low Risk <150 Borderline 150-199 High Risk 200-499 Very High Risk >=500Cholesterol Reference Range: Low Risk <200 Borderline 200-239 High Risk >240HDL Cholesterol Reference Range: Low Risk >=60 High Risk <40LDL Cholesterol Reference Range: Optimal <100 Near Optimal 100-129 Borderline 130-159 High 160-189 Very High >=190 Fasting BASIC METABOLIC [id number] 03:33:00* Test Item Value Reference Range Comments SODIUM (BEAKER) (test wsva=512) 137 meq/L 136-145 POTASSIUM (BEAKER) (test vczh=148) 4.1 meq/L 3.5-5.1 CHLORIDE (BEAKER) (test huza=413) 102 meq/L 98-107 CO2 (BEAKER) (test ffff=234) 26 meq/L 22-29 BLOOD UREA NITROGEN (BEAKER) (test bjan=754) 18 mg/dL 7-21 CREATININE (BEAKER) (test mevn=027) 0.89 mg/dL 0.57-1.25 GLUCOSE RANDOM (BEAKER) (test umau=449) 173 mg/dL 70-105 CALCIUM (BEAKER) (test jroy=846) 9.2 mg/dL 8.4-10.2 EGFR (BEAKER) (test fbqk=9747) 84 mL/min/1.73 sq m ESTIMATED GFR IS NOT ACCURATE CREATININE CLEARANCE IN PREDICTING GLOMERULAR FILTRATION RATE. ESTIMATED GFR IS NOT APPLICABLE FOR DIALYSIS PATIENTS. FastingPOCT-GLUCOSE [id number] 21:25:00* Test Item Value Reference Range Comments POC-GLUCOSE METER (STEPHONAKER) (test ovst=1542) 172 mg/dL 70-110 TESTED AT [facility] [address] [facility] [address] POCT-GLUCOSE [id number] 18:35:00* Test Item Value Reference Range Comments POC-GLUCOSE METER (STEPHONAKER) (test yxmp=3604) 114 mg/dL 70-110 TESTED AT [place] [id number] [facility] [address] [address], BRAIN, WITHOUT [id number] 14:05:00Reason for exam:->headacheWhat is the patient's sedation requirement?->No SedationFINAL REPORT CT head without contrast 06/10/2018 2:03 PM CLINICAL HISTORY: headacheright sided weakness last hs TECHNIQUE: Axial noncontrast CT images through the head were obtained. This examination was performed according to our departmental dose optimization program, which includes automated exposure control, adjustment of the mA and/or kV according to patient size, and/or use of iterated reconstruction technique. COMPARISON: 01/22/2018 FINDINGS: There is no hemorrhage, extra-axial collection, mass, hydrocephalus, or midline shift. There is mild microvascular ischemia in the supratentorial white matter, deep monahan nuclei, and rudi. There is atherosclerotic calcification of the intracranial arterial vasculature. There is generalized parenchymal volume loss. The visual ized paranasal sinuses and mastoid air cells are well aerated. The skull is inta ct. IMPRESSION: No intracranial hemorrhage or mass effect. Chronic appearing concetta rovascular and involutional changes. If concern for acute pathology persists, fu rther evaluation with MRI is recommended. Signed: Shayna Verma ied Date/Time: 06/10/2018 14:05:12 Reading Location: [facility] Room 02: 05 PM RAD, CHEST, 1 VIEW, NON [id number] 13:26:00Reason for exam:->CHEST PAINShould this be performed at the bedside?->YesFINAL REPORT AP chest, two images HISTORY: Chest pain COMPARISON: 01/22/2018 IMPRESSION:Intact skeleton. Status post sternotomy. Heart size normal. Left lung clear. Right hemidiaphragm elevation. Adjacent opacity suggestive of chronic atelectasis or scarring, similar to previous. No effusion or pneumothorax. Signed: Yrn Soares MDReport Verified Date/Time: 06/10/2018 13:26:19 Reading Location: [address] Radiology Reading Room ONIN [id number] 13:24:00* Test Item Value Reference Range Comments TROPONIN I (BEAKER) (test xocb=312) < ng/mL 0.00-0.03 Troponin I (TnI) levels must be interpreted in the context of the presenting sym ptoms and the clinical findings. Elevated TnI levels indicate myocardial damage, but are not specific for ischemic heart disease. Elevated TnI levels are seen in patients with other cardiac conditions (including myocarditis and congestive h eart failure), and slight TnI elevations occur in patients with other conditions , including sepsis, renal failure, acidosis, acute neurological disease, and per sistent tachyarrhythmia.B-TYPE NATRIURETIC FACTOR (BNP)2018-06-10 13:23:00* Test Item Value Reference Range Comments B-TYPE NATRIURETIC PEPTIDE (BEAKER) (test toxn=501) 13 pg/mL 0-100 BASIC METABOLIC [id number] 13:15:00* Test Item Value Reference Range Comments SODIUM (BEAKER) (test iqad=871) 133 meq/L 136-145 POTASSIUM (BEAKER) (test plol=708) 4.3 meq/L 3.5-5.1 CHLORIDE (BEAKER) (test hipo=497) 99 meq/L 98-107 CO2 (BEAKER) (test epmq=525) 25 meq/L 22-29 BLOOD UREA NITROGEN (BEAKER) (test zuql=099) 18 mg/dL 7-21 CREATININE (BEAKER) (test lopl=576) 0.91 mg/dL 0.57-1.25 GLUCOSE RANDOM (BEAKER) (test zvlr=266) 153 mg/dL 70-105 CALCIUM (BEAKER) (test vddh=819) 10.0 mg/dL 8.4-10.2 EGFR (BEAKER) (test iyxx=6041) 82 mL/min/1.73 sq m ESTIMATED GFR IS NOT ACCURATE CREATININE CLEARANCE IN PREDICTING GLOMERULAR FILTRATION RATE. ESTIMATED GFR IS NOT APPLICABLE FOR DIALYSIS PATIENTS. [id number] 13:05:00* Test Item Value Reference Range Comments PROTIME (BEAKER) (test kfbk=139) 13.7 seconds 11.7-14.7 INR (BEAKER) (test qukk=686) 1.0 <=5.9 PARTIAL THROMBOPLASTIN TIME (BEAKER) (test cuhi=780) 34.9 seconds 22.5-36.0 RECOMMENDED COUMADIN/WARFARIN INR THERAPY RANGESSTANDARD DOSE: 2.0 - 3.0 Inclu renetta: PROPHYLAXIS for venous thrombosis, systemic embolization; TREATMENT for kurt ous thrombosis and/or pulmonary embolus.HIGH RISK: Target INR is 2.5-3.5 for pat ients with mechanical heart valves.CBC W/PLT COUNT & AUTO [id number] 12:59:00* Test Item Value Reference Range Comments WHITE BLOOD CELL COUNT (BEAKER) (test lghh=708) 8.3 K/ L 3.5-10.5 RED BLOOD CELL COUNT (BEAKER) (test bxti=444) 4.03 M/ L 4.63-6.08 HEMOGLOBIN (BEAKER) (test awou=945) 12.6 GM/DL 13.7-17.5 HEMATOCRIT (BEAKER) (test hdec=326) 36.6 % 40.1-51.0 MEAN CORPUSCULAR VOLUME (BEAKER) (test wfpa=631) 90.8 fL 79.0-92.2 MEAN CORPUSCULAR HEMOGLOBIN (BEAKER) (test rhom=046) 31.3 pg 25.7-32.2 MEAN CORPUSCULAR HEMOGLOBIN CONC (BEAKER) (test pxqe=611) 34.4 GM/DL 32.3-36.5 RED CELL DISTRIBUTION WIDTH (BEAKER) (test oupg=048) 12.1 % 11.6-14.4 PLATELET COUNT (BEAKER) (test zqrg=258) 209 K/CU MM 150-450 MEAN PLATELET VOLUME (BEAKER) (test iqhy=458) 9.5 fL 9.4-12.4 NUCLEATED RED BLOOD CELLS (BEAKER) (test pjcr=536) 0 /100 WBC 0-0 NEUTROPHILS RELATIVE PERCENT (BEAKER) (test fqxg=577) 60 % LYMPHOCYTES RELATIVE PERCENT (BEAKER) (test mfkv=404) 28 % MONOCYTES RELATIVE PERCENT (BEAKER) (test hjvj=249) 7 % EOSINOPHILS RELATIVE PERCENT (BEAKER) (test iszc=110) 3 % BASOPHILS RELATIVE PERCENT (BEAKER) (test lage=183) 1 % NEUTROPHILS ABSOLUTE COUNT (BEAKER) (test niua=748) 4.99 K/ L 1.78-5.38 LYMPHOCYTES ABSOLUTE COUNT (BEAKER) (test eeqw=857) 2.35 K/ L 1.32-3.57 MONOCYTES ABSOLUTE COUNT (BEAKER) (test iwee=974) 0.61 K/ L 0.30-0.82 EOSINOPHILS ABSOLUTE COUNT (BEAKER) (test vlts=402) 0.28 K/ L 0.04-0.54 BASOPHILS ABSOLUTE COUNT (BEAKER) (test ofdj=689) 0.05 K/ L 0.01-0.08 IMMATURE GRANULOCYTES-RELATIVE PERCENT (BEAKER) (test lopi=4086) 0 % 0-1 BLOOD [id number] 16:05:00* Test Item Value Reference Range Comments CULTURE (BEAKER) (test ldms=7678) From Aerobic Bottle Only Cellulosimicrobium cellulansIdentification performed by:[facility], [address] [place] [id number] GRAM STAIN RESULT (BEAKER) (test okig=2765) From aerobic bottle only: gram positive rods BLOOD [id number] 06:00:00* Test Item Value Reference Range Comments CULTURE (BEAKER) (test yyqy=5042) No growth in 5 days POCT-GLUCOSE [id number] 11:32:00* Test Item Value Reference Range Comments POC-GLUCOSE METER (BEAKER) (test zqgi=3432) 251 mg/dL 70-110 TESTED AT [facility] [address] [facility] [address] VANCOMYCIN LEVEL, [id number] 09:36:00* Test Item Value Reference Range Comments VANCOMYCIN TROUGH (BEAKER) (test ehhp=127) 18.0 ug/mL 10.0-20.0 POCT-GLUCOSE [id number] 08:03:00* Test Item Value Reference Range Comments POC-GLUCOSE METER (BEAKER) (test tjmg=7886) 258 mg/dL 70-110 TESTED AT [facility] [address] [facility] [address] VANCOMYCIN LEVEL, [id number] 04:57:00* Test Item Value Reference Range Comments VANCOMYCIN TROUGH (BEAKER) (test knle=334) 19.8 ug/mL 10.0-20.0 [id number] 04:55:00* Test Item Value Reference Range Comments MAGNESIUM (BEAKER) (test ensi=528) 1.9 mg/dL 1.6-2.6 BASIC METABOLIC [id number] 04:55:00* Test Item Value Reference Range Comments SODIUM (BEAKER) (test lsnb=959) 130 meq/L 136-145 POTASSIUM (BEAKER) (test nunx=334) 4.0 meq/L 3.5-5.1 CHLORIDE (BEAKER) (test vgmd=853) 100 meq/L 98-107 CO2 (BEAKER) (test ivpc=060) 23 meq/L 22-29 BLOOD UREA NITROGEN (BEAKER) (test yddy=050) 10 mg/dL 7-21 CREATININE (BEAKER) (test ejhb=603) 0.95 mg/dL 0.57-1.25 GLUCOSE RANDOM (BEAKER) (test stqy=930) 327 mg/dL 70-105 CALCIUM (BEAKER) (test mvdl=123) 9.0 mg/dL 8.4-10.2 EGFR (BEAKER) (test hfay=7480) 78 mL/min/1.73 sq m ESTIMATED GFR IS NOT ACCURATE CREATININE CLEARANCE IN PREDICTING GLOMERULAR FILTRATION RATE. ESTIMATED GFR IS NOT APPLICABLE FOR DIALYSIS PATIENTS. CBC W/PLT COUNT & AUTO [id number] 04:37:00* Test Item Value Reference Range Comments WHITE BLOOD CELL COUNT (BEAKER) (test qbgc=629) 7.1 K/ L 3.5-10.5 RED BLOOD CELL COUNT (BEAKER) (test lkac=416) 3.68 M/ L 4.63-6.08 HEMOGLOBIN (BEAKER) (test kftr=307) 11.2 GM/DL 13.7-17.5 HEMATOCRIT (BEAKER) (test vgte=342) 33.8 % 40.1-51.0 MEAN CORPUSCULAR VOLUME (BEAKER) (test dhza=638) 91.8 fL 79.0-92.2 MEAN CORPUSCULAR HEMOGLOBIN (BEAKER) (test uhtp=923) 30.4 pg 25.7-32.2 MEAN CORPUSCULAR HEMOGLOBIN CONC (BEAKER) (test vkis=535) 33.1 GM/DL 32.3-36.5 RED CELL DISTRIBUTION WIDTH (BEAKER) (test dqvv=664) 12.8 % 11.6-14.4 PLATELET COUNT (BEAKER) (test ntns=265) 239 K/CU MM 150-450 MEAN PLATELET VOLUME (BEAKER) (test nzxk=170) 9.6 fL 9.4-12.4 NUCLEATED RED BLOOD CELLS (BEAKER) (test dfda=888) 0 /100 WBC 0-0 NEUTROPHILS RELATIVE PERCENT (BEAKER) (test bgkx=924) 64 % LYMPHOCYTES RELATIVE PERCENT (BEAKER) (test fcug=916) 26 % MONOCYTES RELATIVE PERCENT (BEAKER) (test wocx=876) 8 % EOSINOPHILS RELATIVE PERCENT (BEAKER) (test nwqc=155) 2 % BASOPHILS RELATIVE PERCENT (BEAKER) (test kfpv=127) 0 % NEUTROPHILS ABSOLUTE COUNT (BEAKER) (test kldd=016) 4.56 K/ L 1.78-5.38 LYMPHOCYTES ABSOLUTE COUNT (BEAKER) (test rabb=475) 1.81 K/ L 1.32-3.57 MONOCYTES ABSOLUTE COUNT (BEAKER) (test yief=130) 0.59 K/ L 0.30-0.82 EOSINOPHILS ABSOLUTE COUNT (BEAKER) (test uqlw=281) 0.11 K/ L 0.04-0.54 BASOPHILS ABSOLUTE COUNT (BEAKER) (test vscb=572) 0.02 K/ L 0.01-0.08 IMMATURE GRANULOCYTES-RELATIVE PERCENT (BEAKER) (test hswd=3627) 0 % 0-1 BLOOD CULTURE IDENTIFICATION [id number] 00:32:00* Test Item Value Reference Range Comments LISTERIA MONOCYTOGENES (test alup=[id number]) Not detected Not detected STAPHYLOCOCCUS (test tdsg=8921823) Not detected Not detected STAPHYLOCOCCUS AUREUS (test dygz=4128376) Not detected Not detected STREPTOCOCCUS (test vthn=9221211) Not detected Not detected STREPTOCOCCUS AGALACTIAE (GROUP B) (test ydrj=4352984) Not detected Not detected STREPTOCOCCUS PNEUMONIAE (test aopz=5724281) Not detected Not detected STREPTOCOCCUS PYOGENES (GROUP A) (test kyph=5763415) Not detected Not detected ACINETOBACTER BAUMANNII (test vsst=2518774) Not detected Not detected HAEMOPHILUS INFLUENZAE (test gtpm=9247017) Not detected Not detected NEISSERIA MENINGITIDIS (test yaak=8342343) Not detected Not detected ENTEROBACTERIACEAE (test mybg=7568200) Not detected Not detected ENTEROBACTER CLOACOE COMPLEX (test cqni=8294349) Not detected Not detected KLEBSIELLA OXYTOCA (test gexv=2655136) Not detected Not detected KLEBSIELLA PNEUMONIAE (test aqtv=3261) Not detected Not detected PROTEUS (test hmvl=7490050) Not detected Not detected SERRATIA MARCESCENS (test ivyo=3491736) Not detected Not detected PORTIA ALBICANS (test gqzv=5354735) Not detected Not detected PORTIA GLABRATA (test heuf=8773991) Not detected Not detected PORTIA KRUSEI (test gotw=3503437) Not detected Not detected PORTIA PARAPSILOSIS (test zaeq=0434587) Not detected Not detected PORTIA TROPICALIS (test zlpd=9303197) Not detected Not detected ESCHERICHIA COLI (test tqus=3391810) Not detected Not detected METHICILLIN-RESISTANCE GENE (test jvzh=0882523) Not detected VANCOMYCIN-RESISTANCE GENE (test gzfz=3980267) Not detected CARBAPENEM-RESISTANCE GENE (test tavh=5853839) Not detected ENTEROCOCCUS-BEAKER (test ydmi=4623438) Not detected Not detected PSEUDOMONAS AERUGINOSA-BEAKER (test xmvs=5356588) Not detected Not detected Other bacteria and resistance markers not targeted by this PCR panel cannot be e xcluded; therefore clinical correlation and follow up of serology, culture resul ts, and other molecular studies is required. The results are not intended to be used as the sole means for clinical diagnosis or patient management decisions. T his sample was tested at the [facility] using the ZanAquaArray Blood Culture ID Panel. It is FDA cleared and has been verified and approved by the [facility] for clinical use. Thi s laboratory is CLIA-certified and [employer] ([employer])-accred ited to perform high complexity testing.POCT-GLUCOSE [id number] 20:07:00* Test Item Value Reference Range Comments POC-GLUCOSE METER (BEAKER) (test npln=9671) 274 mg/dL 70-110 [address]ED AT [address] [address] POCT-GLUCOSE [id number] 19:06:00* Test Item Value Reference Range Comments POC-GLUCOSE METER (BEAKER) (test gnfe=2851) 200 mg/dL 70-110 TESTED AT [address] [address] POCT-GLUCOSE [id number] 18:09:00* Test Item Value Reference Range Comments POC-GLUCOSE METER (BEAKER) (test wxwx=1320) 202 mg/dL 70-110 TESTED AT [address] [address] POCT-GLUCOSE [id number] 18:09:00* Test Item Value Reference Range Comments POC-GLUCOSE METER (BEAKER) (test vpsf=2910) 188 mg/dL 70-110 TESTED AT [address] [address] POCT-GLUCOSE [id number] 17:01:00* Test Item Value Reference Range Comments POC-GLUCOSE METER (BEAKER) (test cuik=5177) 215 mg/dL 70-110 TESTED AT [address] [address] POCT-GLUCOSE [id number] 15:11:00* Test Item Value Reference Range Comments POC-GLUCOSE METER (BEAKER) (test rptq=7066) 188 mg/dL 70-110 TESTED AT [address] [address] [id number] 14:37:00* Test Item Value Reference Range Comments PROCALCITONIN (BEAKER) (test uixn=4080) < ng/mL <0.05 SEPSIS RISK (ng/mL)Low: 0.05-0.50Intermediate: 0.51-2.00High: > =2.01TROPONIN [id number] 14:28:00* Test Item Value Reference Range Comments TROPONIN I (BEAKER) (test brxq=620) < ng/mL 0.00-0.03 Troponin I (TnI) levels must be interpreted in the context of the presenting sym ptoms and the clinical findings. Elevated TnI levels indicate myocardial damage, but are not specific for ischemic heart disease. Elevated TnI levels are seen in patients with other cardiac conditions (including myocarditis and congestive h eart failure), and slight TnI elevations occur in patients with other conditions , including sepsis, renal failure, acidosis, acute neurological disease, and per sistent tachyarrhythmia.[id number] 14:21:00* Test Item Value Reference Range Comments MAGNESIUM (BEAKER) (test owun=506) 1.8 mg/dL 1.6-2.6 BASIC METABOLIC [id number] 14:21:00* Test Item Value Reference Range Comments SODIUM (BEAKER) (test tpvd=165) 128 meq/L 136-145 POTASSIUM (BEAKER) (test ovjg=761) 4.0 meq/L 3.5-5.1 CHLORIDE (BEAKER) (test egai=287) 98 meq/L 98-107 CO2 (BEAKER) (test mlha=415) 22 meq/L 22-29 BLOOD UREA NITROGEN (BEAKER) (test jxbg=908) 10 mg/dL 7-21 CREATININE (BEAKER) (test hzgo=534) 0.92 mg/dL 0.57-1.25 GLUCOSE RANDOM (BEAKER) (test nioe=364) 145 mg/dL 70-105 CALCIUM (BEAKER) (test uquc=515) 8.7 mg/dL 8.4-10.2 EGFR (BEAKER) (test oktg=1549) 81 mL/min/1.73 sq m ESTIMATED GFR IS NOT ACCURATE CREATININE CLEARANCE IN PREDICTING GLOMERULAR FILTRATION RATE. ESTIMATED GFR IS NOT APPLICABLE FOR DIALYSIS PATIENTS. LACTIC ACID, VENOUS, WHOLE [id number] 14:14:00* Test Item Value Reference Range Comments LACTATE BLOOD VENOUS (2) (BEAKER) (test pdkz=0282) 2.1 mmol/L 0.5-2.2 Specimen slightly hemolyzed Effective 09/04/2015: Units/Reference Range ChangeNew: 0.5-2.2 mmol/L Previous: 5 -20 mg/dLPOCT-GLUCOSE [id number] 14:13:00* Test Item Value Reference Range Comments POC-GLUCOSE METER (BEAKER) (test sjxx=8107) 118 mg/dL 70-110 TESTED AT [facility] [address] [facility] [address] POCT-GLUCOSE [id number] 13:24:00* Test Item Value Reference Range Comments POC-GLUCOSE METER (BEAKER) (test dnix=5734) 209 mg/dL 70-110 TESTED AT [address] [address] POCT-GLUCOSE [id number] 12:35:00* Test Item Value Reference Range Comments POC-GLUCOSE METER (BEAKER) (test ocae=0594) 104 mg/dL 70-110 TESTED AT [address] [address] POCT-GLUCOSE [id number] 12:10:00* Test Item Value Reference Range Comments POC-GLUCOSE METER (BEAKER) (test axdc=7403) 149 mg/dL 70-110 TESTED AT [address] [address] POCT-GLUCOSE [id number] 11:03:00* Test Item Value Reference Range Comments POC-GLUCOSE METER (BEAKER) (test xyel=1405) 116 mg/dL 70-110 TESTED AT [address] [address] POCT-GLUCOSE [id number] 10:30:00* Test Item Value Reference Range Comments POC-GLUCOSE METER (BEAKER) (test jwzg=4356) 230 mg/dL 70-110 TESTED AT [address] [address] POCT-GLUCOSE [id number] 09:31:00* Test Item Value Reference Range Comments POC-GLUCOSE METER (BEAKER) (test kwqp=1803) 250 mg/dL 70-110 TESTED AT [address] [address] POCT-GLUCOSE [id number] 08:16:00* Test Item Value Reference Range Comments POC-GLUCOSE METER (BEAKER) (test jdmm=3826) 257 mg/dL 70-110 TESTED AT [address] [address] [id number] 06:04:00* Test Item Value Reference Range Comments MAGNESIUM (BEAKER) (test uqkk=609) 1.8 mg/dL 1.6-2.6 BASIC METABOLIC [id number] 06:04:00* Test Item Value Reference Range Comments SODIUM (BEAKER) (test shkk=047) 134 meq/L 136-145 POTASSIUM (BEAKER) (test vfgp=558) 4.3 meq/L 3.5-5.1 CHLORIDE (BEAKER) (test kllh=676) 101 meq/L 98-107 CO2 (BEAKER) (test delc=958) 25 meq/L 22-29 BLOOD UREA NITROGEN (BEAKER) (test hgmt=405) 11 mg/dL 7-21 CREATININE (BEAKER) (test vnzn=646) 0.81 mg/dL 0.57-1.25 GLUCOSE RANDOM (BEAKER) (test jgtd=252) 151 mg/dL 70-105 CALCIUM (BEAKER) (test xxsm=941) 9.3 mg/dL 8.4-10.2 EGFR (BEAKER) (test qtgk=1541) 94 mL/min/1.73 sq m ESTIMATED GFR IS NOT ACCURATE CREATININE CLEARANCE IN PREDICTING GLOMERULAR FILTRATION RATE. ESTIMATED GFR IS NOT APPLICABLE FOR DIALYSIS PATIENTS. CBC W/PLT COUNT & AUTO [id number] 04:04:00* Test Item Value Reference Range Comments WHITE BLOOD CELL COUNT (BEAKER) (test myzf=433) 8.3 K/ L 3.5-10.5 RED BLOOD CELL COUNT (BEAKER) (test jumm=725) 3.73 M/ L 4.63-6.08 HEMOGLOBIN (BEAKER) (test sjpf=816) 11.4 GM/DL 13.7-17.5 HEMATOCRIT (BEAKER) (test hyfe=881) 33.9 % 40.1-51.0 MEAN CORPUSCULAR VOLUME (BEAKER) (test obtb=854) 90.9 fL 79.0-92.2 MEAN CORPUSCULAR HEMOGLOBIN (BEAKER) (test oiju=610) 30.6 pg 25.7-32.2 MEAN CORPUSCULAR HEMOGLOBIN CONC (BEAKER) (test kdvq=387) 33.6 GM/DL 32.3-36.5 RED CELL DISTRIBUTION WIDTH (BEAKER) (test wjpe=686) 12.9 % 11.6-14.4 PLATELET COUNT (BEAKER) (test ytsg=030) 266 K/CU MM 150-450 MEAN PLATELET VOLUME (BEAKER) (test bvpk=506) 9.9 fL 9.4-12.4 NUCLEATED RED BLOOD CELLS (BEAKER) (test kxhw=402) 0 /100 WBC 0-0 NEUTROPHILS RELATIVE PERCENT (BEAKER) (test yvuy=071) 71 % LYMPHOCYTES RELATIVE PERCENT (BEAKER) (test kpsr=756) 21 % MONOCYTES RELATIVE PERCENT (BEAKER) (test uphp=985) 8 % EOSINOPHILS RELATIVE PERCENT (BEAKER) (test qjkz=692) 1 % BASOPHILS RELATIVE PERCENT (BEAKER) (test hful=454) 0 % NEUTROPHILS ABSOLUTE COUNT (BEAKER) (test pxdb=360) 5.86 K/ L 1.78-5.38 LYMPHOCYTES ABSOLUTE COUNT (BEAKER) (test fnfu=786) 1.74 K/ L 1.32-3.57 MONOCYTES ABSOLUTE COUNT (BEAKER) (test ybwn=728) 0.65 K/ L 0.30-0.82 EOSINOPHILS ABSOLUTE COUNT (BEAKER) (test jrmz=747) 0.04 K/ L 0.04-0.54 BASOPHILS ABSOLUTE COUNT (BEAKER) (test iyuc=342) 0.01 K/ L 0.01-0.08 IMMATURE GRANULOCYTES-RELATIVE PERCENT (BEAKER) (test acdm=7621) 0 % 0-1 POCT-GLUCOSE [id number] 21:20:00* Test Item Value Reference Range Comments POC-GLUCOSE METER (BEAKER) (test nwxx=6807) 313 mg/dL 70-110 TESTED AT [place] [id number] [facility] [address] [id number] 05:10:00* Test Item Value Reference Range Comments MAGNESIUM (BEAKER) (test bkwl=404) 1.6 mg/dL 1.6-2.6 BASIC METABOLIC [id number] 05:10:00* Test Item Value Reference Range Comments SODIUM (BEAKER) (test urix=604) 129 meq/L 136-145 POTASSIUM (BEAKER) (test xjtl=446) 4.3 meq/L 3.5-5.1 CHLORIDE (BEAKER) (test bfcf=431) 98 meq/L 98-107 CO2 (BEAKER) (test htev=880) 23 meq/L 22-29 BLOOD UREA NITROGEN (BEAKER) (test husv=623) 15 mg/dL 7-21 CREATININE (BEAKER) (test wkyy=260) 0.85 mg/dL 0.57-1.25 GLUCOSE RANDOM (BEAKER) (test cwrf=653) 158 mg/dL 70-105 CALCIUM (BEAKER) (test nnft=474) 8.6 mg/dL 8.4-10.2 EGFR (BEAKER) (test wfdo=2164) 89 mL/min/1.73 sq m ESTIMATED GFR IS NOT ACCURATE CREATININE CLEARANCE IN PREDICTING GLOMERULAR FILTRATION RATE. ESTIMATED GFR IS NOT APPLICABLE FOR DIALYSIS PATIENTS. LACTIC ACID, VENOUS, WHOLE [id number] 04:52:00* Test Item Value Reference Range Comments LACTATE BLOOD VENOUS (2) (BEAKER) (test vquu=1215) 1.6 mmol/L 0.5-2.2 Effective 09/04/2015: Units/Reference Range ChangeNew: 0.5-2.2 mmol/L Previous: 5 -20 mg/dLCBC W/PLT COUNT & AUTO [id number] 04:44:00* Test Item Value Reference Range Comments WHITE BLOOD CELL COUNT (BEAKER) (test supl=849) 17.9 K/ L 3.5-10.5 RED BLOOD CELL COUNT (BEAKER) (test dkxf=775) 3.31 M/ L 4.63-6.08 HEMOGLOBIN (BEAKER) (test nsdx=390) 10.1 GM/DL 13.7-17.5 HEMATOCRIT (BEAKER) (test dxcr=823) 30.3 % 40.1-51.0 MEAN CORPUSCULAR VOLUME (BEAKER) (test tuwm=400) 91.5 fL 79.0-92.2 MEAN CORPUSCULAR HEMOGLOBIN (BEAKER) (test pkxv=729) 30.5 pg 25.7-32.2 MEAN CORPUSCULAR HEMOGLOBIN CONC (BEAKER) (test mtlw=453) 33.3 GM/DL 32.3-36.5 RED CELL DISTRIBUTION WIDTH (BEAKER) (test gogk=561) 12.5 % 11.6-14.4 PLATELET COUNT (BEAKER) (test clwo=941) 217 K/CU MM 150-450 MEAN PLATELET VOLUME (BEAKER) (test nnhn=827) 9.7 fL 9.4-12.4 NUCLEATED RED BLOOD CELLS (BEAKER) (test jlta=360) 0 /100 WBC 0-0 NEUTROPHILS RELATIVE PERCENT (BEAKER) (test ybaq=419) 84 % LYMPHOCYTES RELATIVE PERCENT (BEAKER) (test lgwm=090) 10 % MONOCYTES RELATIVE PERCENT (BEAKER) (test kauh=415) 5 % EOSINOPHILS RELATIVE PERCENT (BEAKER) (test ygjl=601) 0 % BASOPHILS RELATIVE PERCENT (BEAKER) (test kkuj=951) 0 % NEUTROPHILS ABSOLUTE COUNT (BEAKER) (test eqmk=044) 15.00 K/ L 1.78-5.38 LYMPHOCYTES ABSOLUTE COUNT (BEAKER) (test mqgj=101) 1.75 K/ L 1.32-3.57 MONOCYTES ABSOLUTE COUNT (BEAKER) (test biep=109) 0.95 K/ L 0.30-0.82 EOSINOPHILS ABSOLUTE COUNT (BEAKER) (test ynal=080) 0.00 K/ L 0.04-0.54 BASOPHILS ABSOLUTE COUNT (BEAKER) (test eipt=931) 0.02 K/ L 0.01-0.08 IMMATURE GRANULOCYTES-RELATIVE PERCENT (BEAKER) (test geag=0476) 1 % 0-1 URINALYSIS W/ REFLEX URINE [id number] 10:07:00* Test Item Value Reference Range Comments COLOR (BEAKER) (test nusm=633) Light Yellow CLARITY (BEAKER) (test oqsf=059) Clear SPECIFIC GRAVITY UA (BEAKER) (test yrqx=080) 1.009 1.001-1.035 PH UA (BEAKER) (test fxag=688) 5.0 5.0-8.0 PROTEIN UA (BEAKER) (test fvuk=285) Negative Negative GLUCOSE UA (BEAKER) (test trsr=487) 100 mg/dL Negative KETONES UA (BEAKER) (test vigg=729) Negative Negative BILIRUBIN UA (BEAKER) (test jqnb=804) Negative Negative BLOOD UA (BEAKER) (test geiu=049) Negative Negative NITRITE UA (BEAKER) (test uezm=171) Negative Negative LEUKOCYTE ESTERASE UA (BEAKER) (test hjiy=026) Negative Negative UROBILINOGEN UA (BEAKER) (test qzqv=529) 0.2 mg/dL 0.2-1.0 RBC UA (BEAKER) (test bvmc=564) 0 /HPF WBC UA (BEAKER) (test moyt=346) < /HPF MUCUS (BEAKER) (test pdsx=2490) Rare SQUAMOUS EPITHELIAL (BEAKER) (test idhe=727) < /HPF SOURCE(BEAKER) (test ntxd=7583) [id number] 05:42:00* Test Item Value Reference Range Comments MAGNESIUM (BEAKER) (test zjeh=151) 1.6 mg/dL 1.6-2.6 BASIC METABOLIC [id number] 05:42:00* Test Item Value Reference Range Comments SODIUM (BEAKER) (test ryiv=442) 129 meq/L 136-145 POTASSIUM (BEAKER) (test lqch=424) 5.4 meq/L 3.5-5.1 CHLORIDE (BEAKER) (test zuvr=765) 97 meq/L 98-107 CO2 (BEAKER) (test eoor=255) 25 meq/L 22-29 BLOOD UREA NITROGEN (BEAKER) (test oeri=153) 15 mg/dL 7-21 CREATININE (BEAKER) (test ejyd=346) 0.88 mg/dL 0.57-1.25 GLUCOSE RANDOM (BEAKER) (test uqok=198) 261 mg/dL 70-105 CALCIUM (BEAKER) (test ckcx=911) 8.9 mg/dL 8.4-10.2 EGFR (BEAKER) (test podz=6216) 85 mL/min/1.73 sq m ESTIMATED GFR IS NOT ACCURATE CREATININE CLEARANCE IN PREDICTING GLOMERULAR FILTRATION RATE. ESTIMATED GFR IS NOT APPLICABLE FOR DIALYSIS PATIENTS. CBC W/PLT COUNT & AUTO [id number] 05:29:00* Test Item Value Reference Range Comments WHITE BLOOD CELL COUNT (BEAKER) (test dpej=087) 10.9 K/ L 3.5-10.5 RED BLOOD CELL COUNT (BEAKER) (test fhrk=575) 3.63 M/ L 4.63-6.08 HEMOGLOBIN (BEAKER) (test iidu=942) 11.0 GM/DL 13.7-17.5 HEMATOCRIT (BEAKER) (test fdjd=869) 33.6 % 40.1-51.0 MEAN CORPUSCULAR VOLUME (BEAKER) (test rxrq=338) 92.6 fL 79.0-92.2 MEAN CORPUSCULAR HEMOGLOBIN (BEAKER) (test bhge=489) 30.3 pg 25.7-32.2 MEAN CORPUSCULAR HEMOGLOBIN CONC (BEAKER) (test qeed=681) 32.7 GM/DL 32.3-36.5 RED CELL DISTRIBUTION WIDTH (BEAKER) (test dffj=554) 12.3 % 11.6-14.4 PLATELET COUNT (BEAKER) (test dwgm=196) 225 K/CU MM 150-450 MEAN PLATELET VOLUME (BEAKER) (test bamr=919) 9.4 fL 9.4-12.4 NUCLEATED RED BLOOD CELLS (BEAKER) (test yiiy=076) 0 /100 WBC 0-0 NEUTROPHILS RELATIVE PERCENT (BEAKER) (test qaig=853) 92 % LYMPHOCYTES RELATIVE PERCENT (BEAKER) (test pfkh=790) 6 % MONOCYTES RELATIVE PERCENT (BEAKER) (test mmme=516) 1 % EOSINOPHILS RELATIVE PERCENT (BEAKER) (test qddf=291) 0 % BASOPHILS RELATIVE PERCENT (BEAKER) (test xjjb=269) 0 % NEUTROPHILS ABSOLUTE COUNT (BEAKER) (test wwuj=153) 10.06 K/ L 1.78-5.38 LYMPHOCYTES ABSOLUTE COUNT (BEAKER) (test kgwj=360) 0.70 K/ L 1.32-3.57 MONOCYTES ABSOLUTE COUNT (BEAKER) (test awes=563) 0.08 K/ L 0.30-0.82 EOSINOPHILS ABSOLUTE COUNT (BEAKER) (test vgqw=791) 0.01 K/ L 0.04-0.54 BASOPHILS ABSOLUTE COUNT (BEAKER) (test opks=069) 0.01 K/ L 0.01-0.08 IMMATURE GRANULOCYTES-RELATIVE PERCENT (BEAKER) (test kuny=9668) 1 % 0-1 LACTIC ACID, VENOUS, WHOLE [id number] 05:22:00* Test Item Value Reference Range Comments LACTATE BLOOD VENOUS (2) (BEAKER) (test ioij=5179) 0.6 mmol/L 0.5-2.2 Effective 09/04/2015: Units/Reference Range ChangeNew: 0.5-2.2 mmol/L Previous: 5 -20 mg/dLBLOOD GAS, [id number] 05:03:00* Test Item Value Reference Range Comments PH ARTERIAL (BEAKER) (test ecrn=919) 7.32 7.35-7.45 PCO2 ARTERIAL (BEAKER) (test ptcc=865) 57 mmHg 35-45 PO2 ARTERIAL (BEAKER) (test nnpb=304) 89 mmHg 80-90 O2 SATURATION ARTERIAL (BEAKER) (test pamv=761) 96.3 % 96.0-97.0 HCO3 ARTERIAL (BEAKER) (test wtvw=558) 29 mmol/L 21-29 BASE EXCESS ARTERIAL (BEAKER) (test qyvs=403) 1.4 mmol/L -2.0-3.0 PATIENT TEMPERATURE (BEAKER) (test udsb=2332) 36.4 C FIO2 (BEAKER) (test iery=0944) 30.0 % POCT-LACTIC ACID, [id number] 23:56:00* Test Item Value Reference Range Comments POC-LACTIC ACID, VENOUS (BEAKER) (test shib=0083) 1.1 mmol/L 0.9-1.7 TESTED AT [facility] [address] [facility] [address] [address], BRAIN, WITHOUT [id number] 23:32:00Reason for exam:->headacheWhat is the patient's sedation requirement?->No SedationFINAL REPORT CT, BRAIN, WITHOUT CONTRAST INDICATION: Confusion/delirium, altered LOC, unexplainedheadache TECHNIQUE: Noncontrast axial imaging was obtained from the vertex to the skull base. Axial images were reconstructed using a bone algorithm. DOSE REDUCTION: Dose modulation, iterative reconstruction, and/or weight-based adjustment of the mA/kV was utilized to reduce the radiation dose to as low as reasonably achievable. COMPARISON: April 29, 2017 FINDINGS: Cerebral parenchyma: Diffuse parenchymal volume loss. Chronic deep white matter ischemic changes. No acute infarct.Midline structures: Normally posit ioned.Cerebellum and brainstem: Commensurate volume loss.Ventricles: Normal volu me.Extra-axial spaces: Unremarkable. Calvarium and skull base: Intact.Paranasal sinuses and mastoid air cells: Visible chambers are clear.Orbital contents: Incl uded portions unremarkable. Additional findings: None. IMPRESSION: Chronic inv olutional changes without acute intracranial abnormality. If there is persistent clinical concern for intracranial pathology, MR examination is recommended for further characterization. Signed: JR Zaldivar Robert MDReport Verified Aubrey e/Time: 01/22/2018 23:32:29 Reading Location: [facility] B1 C013Y CT Body Reading Room D GAS, [id number] 22:43:00* Test Item Value Reference Range Comments PH ARTERIAL (BEAKER) (test tqdi=863) 7.37 7.35-7.45 PCO2 ARTERIAL (BEAKER) (test cwus=564) 50 mmHg 35-45 PO2 ARTERIAL (BEAKER) (test nokk=117) 173 mmHg 80-90 O2 SATURATION ARTERIAL (BEAKER) (test pqaz=485) 99.1 % 96.0-97.0 HCO3 ARTERIAL (BEAKER) (test tpvs=445) 28 mmol/L 21-29 BASE EXCESS ARTERIAL (BEAKER) (test ytlc=416) 2.3 mmol/L -2.0-3.0 PATIENT TEMPERATURE (BEAKER) (test fevm=7712) 37.5 C FIO2 (BEAKER) (test aigb=5155) 30.0 % B-TYPE NATRIURETIC FACTOR (BNP)2018-01-22 22:39:00* Test Item Value Reference Range Comments B-TYPE NATRIURETIC PEPTIDE (BEAKER) (test whgk=257) 113 pg/mL 0-100 RAD, CHEST, PA OR AP, 1 [id number] 22:31:00Reason for exam:->chest painShould this be performed at the bedside?->YesFINAL REPORT INDICATION: chest pain COMPARISON: None TECHNIQUE: Single frontal view of the chest. FINDINGS: Lungs and pleura: Basilar consolidation, increased since the prior examination No effusion.Heart and mediastinum: Normal heart size. Unremarkable mediastinal contours.Osseous structures: No acute abnormality.Other: None. IMPRESSION: Increasing basilar consolidation re presenting either subsegmental atelectasis or worsening pneumonia. Signed: Zach de jesus JR, Robert MDReport Verified Date/Time: 01/22/2018 22:31:12 Reading Lo cation: [facility] B1 C013Y CT Body Reading Room TINE KINASE (CK), TOTAL AND [id number] 22:17:00* Test Item Value Reference Range Comments CREATINE KINASE TOTAL (BEAKER) (test eixq=428) 115 U/L 29-200 CREATINE KINASE-MB (BEAKER) (test jjlu=847) 1.5 ng/mL 0.0-6.6 CREATINE KINASE-MB INDEX (BEAKER) (test qntt=395) 1.3 % CK-MB Reference Range:<6.7 Normal6.7-10.0 Borderline>10.0 Abnormal TROPONIN [id number] 22:17:00* Test Item Value Reference Range Comments TROPONIN I (BEAKER) (test xiea=958) < ng/mL 0.00-0.03 Troponin I (TnI) levels must be interpreted in the context of the presenting sym ptoms and the clinical findings. Elevated TnI levels indicate myocardial damage, but are not specific for ischemic heart disease. Elevated TnI levels are seen in patients with other cardiac conditions (including myocarditis and congestive h eart failure), and slight TnI elevations occur in patients with other conditions , including sepsis, renal failure, acidosis, acute neurological disease, and per sistent tachyarrhythmia.BASIC METABOLIC [id number] 22:10:00* Test Item Value Reference Range Comments SODIUM (BEAKER) (test qssl=477) 127 meq/L 136-145 POTASSIUM (BEAKER) (test pkyo=925) 5.5 meq/L 3.5-5.1 Specimen moderately hemolyzed CHLORIDE (BEAKER) (test mtri=706) 90 meq/L 98-107 CO2 (BEAKER) (test qnen=727) 29 meq/L 22-29 BLOOD UREA NITROGEN (BEAKER) (test iogm=766) 14 mg/dL 7-21 CREATININE (BEAKER) (test cbib=911) 1.04 mg/dL 0.57-1.25 Specimen moderately hemolyzed GLUCOSE RANDOM (BEAKER) (test rwwp=737) 140 mg/dL 70-105 CALCIUM (BEAKER) (test wqbc=069) 9.3 mg/dL 8.4-10.2 EGFR (BEAKER) (test evtm=3510) 70 mL/min/1.73 sq m ESTIMATED GFR IS NOT ACCURATE CREATININE CLEARANCE IN PREDICTING GLOMERULAR FILTRATION RATE. ESTIMATED GFR IS NOT APPLICABLE FOR DIALYSIS PATIENTS. PT/[id number] 22:02:00* Test Item Value Reference Range Comments PROTIME (BEAKER) (test kbsk=844) 14.7 seconds 11.7-14.7 INR (BEAKER) (test cqwl=354) 1.2 <=5.9 PARTIAL THROMBOPLASTIN TIME (BEAKER) (test ageb=280) 26.3 seconds 22.5-36.0 RECOMMENDED COUMADIN/WARFARIN INR THERAPY RANGESSTANDARD DOSE: 2.0 - 3.0 Inclu renetta: PROPHYLAXIS for venous thrombosis, systemic embolization; TREATMENT for kurt ous thrombosis and/or pulmonary embolus.HIGH RISK: Target INR is 2.5-3.5 for pat ients with mechanical heart valves.CBC W/PLT COUNT & AUTO [id number] 22:01:00* Test Item Value Reference Range Comments WHITE BLOOD CELL COUNT (BEAKER) (test vlox=295) 16.8 K/ L 3.5-10.5 RED BLOOD CELL COUNT (BEAKER) (test kxlv=730) 3.83 M/ L 4.63-6.08 HEMOGLOBIN (BEAKER) (test jkjt=423) 11.8 GM/DL 13.7-17.5 HEMATOCRIT (BEAKER) (test jvff=250) 35.0 % 40.1-51.0 MEAN CORPUSCULAR VOLUME (BEAKER) (test nkhb=937) 91.4 fL 79.0-92.2 MEAN CORPUSCULAR HEMOGLOBIN (BEAKER) (test xvos=931) 30.8 pg 25.7-32.2 MEAN CORPUSCULAR HEMOGLOBIN CONC (BEAKER) (test twnc=331) 33.7 GM/DL 32.3-36.5 RED CELL DISTRIBUTION WIDTH (BEAKER) (test zbsa=788) 12.4 % 11.6-14.4 PLATELET COUNT (BEAKER) (test qdob=669) 241 K/CU MM 150-450 MEAN PLATELET VOLUME (BEAKER) (test qsoi=388) 9.7 fL 9.4-12.4 NUCLEATED RED BLOOD CELLS (BEAKER) (test llre=869) 0 /100 WBC 0-0 NEUTROPHILS RELATIVE PERCENT (BEAKER) (test tyyt=476) 82 % LYMPHOCYTES RELATIVE PERCENT (BEAKER) (test qagz=957) 11 % MONOCYTES RELATIVE PERCENT (BEAKER) (test vgao=310) 5 % EOSINOPHILS RELATIVE PERCENT (BEAKER) (test vhld=223) 2 % BASOPHILS RELATIVE PERCENT (BEAKER) (test jhqf=613) 0 % NEUTROPHILS ABSOLUTE COUNT (BEAKER) (test oval=461) 13.76 K/ L 1.78-5.38 LYMPHOCYTES ABSOLUTE COUNT (BEAKER) (test jusm=481) 1.90 K/ L 1.32-3.57 MONOCYTES ABSOLUTE COUNT (BEAKER) (test itzb=624) 0.78 K/ L 0.30-0.82 EOSINOPHILS ABSOLUTE COUNT (BEAKER) (test wmdy=003) 0.29 K/ L 0.04-0.54 BASOPHILS ABSOLUTE COUNT (BEAKER) (test tcxt=100) 0.03 K/ L 0.01-0.08 IMMATURE GRANULOCYTES-RELATIVE PERCENT (BEAKER) (test wlsv=8177) 1 % 0-1 POCT-GLUCOSE [id number] 12:05:00* Test Item Value Reference Range Comments POC-GLUCOSE METER (BEAKER) (test oyoz=6152) 221 mg/dL 70-110 TESTED AT [facility] [address] [facility] [address] HEMOGLOBIN [id number] 08:29:00* Test Item Value Reference Range Comments HEMOGLOBIN A1C (BEAKER) (test dwmo=591) 7.6 % 4.3-6.1 POCT-GLUCOSE [id number] 08:13:00* Test Item Value Reference Range Comments POC-GLUCOSE METER (BEAKER) (test otkk=4327) 189 mg/dL 70-110 TESTED AT [address] [address] BASIC METABOLIC [id number] 04:59:00* Test Item Value Reference Range Comments SODIUM (BEAKER) (test wotp=046) 130 meq/L 136-145 POTASSIUM (BEAKER) (test pqoj=995) 4.1 meq/L 3.5-5.1 CHLORIDE (BEAKER) (test xjtu=993) 91 meq/L 98-107 CO2 (BEAKER) (test slit=557) 32 meq/L 22-29 BLOOD UREA NITROGEN (BEAKER) (test zhps=310) 14 mg/dL 7-21 CREATININE (BEAKER) (test xjcy=184) 0.84 mg/dL 0.57-1.25 GLUCOSE RANDOM (BEAKER) (test unan=802) 186 mg/dL 70-105 CALCIUM (BEAKER) (test xelc=836) 9.3 mg/dL 8.4-10.2 EGFR (BEAKER) (test pyjj=6963) 90 mL/min/1.73 sq m ESTIMATED GFR IS NOT ACCURATE CREATININE CLEARANCE IN PREDICTING GLOMERULAR FILTRATION RATE. ESTIMATED GFR IS NOT APPLICABLE FOR DIALYSIS PATIENTS. CBC W/PLT COUNT & AUTO [id number] 04:34:00* Test Item Value Reference Range Comments WHITE BLOOD CELL COUNT (BEAKER) (test yjgu=941) 10.0 K/ L 3.5-10.5 RED BLOOD CELL COUNT (BEAKER) (test zmct=933) 3.92 M/ L 4.63-6.08 HEMOGLOBIN (BEAKER) (test kugb=375) 11.9 GM/DL 13.7-17.5 HEMATOCRIT (BEAKER) (test fmxv=438) 35.0 % 40.1-51.0 MEAN CORPUSCULAR VOLUME (BEAKER) (test uxbk=060) 89.3 fL 79.0-92.2 MEAN CORPUSCULAR HEMOGLOBIN (BEAKER) (test trxm=502) 30.4 pg 25.7-32.2 MEAN CORPUSCULAR HEMOGLOBIN CONC (BEAKER) (test hexo=120) 34.0 GM/DL 32.3-36.5 RED CELL DISTRIBUTION WIDTH (BEAKER) (test qqhe=033) 12.2 % 11.6-14.4 PLATELET COUNT (BEAKER) (test zzei=806) 262 K/CU MM 150-450 MEAN PLATELET VOLUME (BEAKER) (test znig=377) 9.1 fL 9.4-12.4 NUCLEATED RED BLOOD CELLS (BEAKER) (test lzhm=751) 0 /100 WBC 0-0 NEUTROPHILS RELATIVE PERCENT (BEAKER) (test uznm=044) 66 % LYMPHOCYTES RELATIVE PERCENT (BEAKER) (test vgat=179) 25 % MONOCYTES RELATIVE PERCENT (BEAKER) (test rbex=763) 7 % EOSINOPHILS RELATIVE PERCENT (BEAKER) (test ahwo=505) 1 % BASOPHILS RELATIVE PERCENT (BEAKER) (test rqjm=490) 0 % NEUTROPHILS ABSOLUTE COUNT (BEAKER) (test xvxc=404) 6.62 K/ L 1.78-5.38 LYMPHOCYTES ABSOLUTE COUNT (BEAKER) (test mhxi=749) 2.47 K/ L 1.32-3.57 MONOCYTES ABSOLUTE COUNT (BEAKER) (test zxaf=944) 0.66 K/ L 0.30-0.82 EOSINOPHILS ABSOLUTE COUNT (BEAKER) (test htgp=757) 0.09 K/ L 0.04-0.54 BASOPHILS ABSOLUTE COUNT (BEAKER) (test hpmg=426) 0.02 K/ L 0.01-0.08 IMMATURE GRANULOCYTES-RELATIVE PERCENT (BEAKER) (test oarb=7350) 2 % 0-1 POCT-GLUCOSE [id number] 23:13:00* Test Item Value Reference Range Comments POC-GLUCOSE METER (BEAKER) (test oond=9112) 297 mg/dL 70-110 [address]ED AT [address] [address] POCT-GLUCOSE [id number] 17:26:00* Test Item Value Reference Range Comments POC-GLUCOSE METER (BEAKER) (test abzc=0349) 299 mg/dL 70-110 TESTED AT [address] [address] POCT-GLUCOSE [id number] 11:59:00* Test Item Value Reference Range Comments POC-GLUCOSE METER (BEAKER) (test amgb=9202) 267 mg/dL 70-110 TESTED AT [address] [address] POCT-GLUCOSE [id number] 07:46:00* Test Item Value Reference Range Comments POC-GLUCOSE METER (BEAKER) (test zosg=5406) 277 mg/dL 70-110 TESTED AT [address] [address] POCT-GLUCOSE [id number] 21:54:00* Test Item Value Reference Range Comments POC-GLUCOSE METER (BEAKER) (test oxro=9485) 324 mg/dL 70-110 Notified AUBREE BIGGS/TESTED AT [address] [address] POCT-GLUCOSE [id number] 18:31:00* Test Item Value Reference Range Comments POC-GLUCOSE METER (BEAKER) (test hapc=3563) 454 mg/dL 70-110 TESTED AT [address] [address] POCT-GLUCOSE [id number] 17:35:00* Test Item Value Reference Range Comments POC-GLUCOSE METER (BEAKER) (test iiws=8847) 417 mg/dL 70-110 Notified AUBREE BIGGS/TESTED AT [address] [address] POCT-GLUCOSE [id number] 12:18:00* Test Item Value Reference Range Comments POC-GLUCOSE METER (BEAKER) (test pffa=9140) 309 mg/dL 70-110 Notified AUBREE BIGGS/TESTED AT [address] [address] POCT-GLUCOSE [id number] 08:04:00* Test Item Value Reference Range Comments POC-GLUCOSE METER (BEAKER) (test yeoy=8957) 380 mg/dL 70-110 Notified AUBREE BIGGS/TESTED AT [address] [address] POCT-GLUCOSE [id number] 00:00:00* Test Item Value Reference Range Comments POC-GLUCOSE METER (BEAKER) (test flpf=9516) 346 mg/dL 70-110 Notified AUBREE BIGGS/TESTED AT [address] [address] POCT-GLUCOSE [id number] 18:44:00* Test Item Value Reference Range Comments POC-GLUCOSE METER (BEAKER) (test give=4351) 351 mg/dL 70-110 TESTED AT [address] [address] POCT-GLUCOSE [id number] 12:22:00* Test Item Value Reference Range Comments POC-GLUCOSE METER (BEAKER) (test mjda=0470) 378 mg/dL 70-110 TESTED AT [address] [address] POCT-GLUCOSE [id number] 07:52:00* Test Item Value Reference Range Comments POC-GLUCOSE METER (BEAKER) (test azqc=7670) 276 mg/dL 70-110 TESTED AT [address] [address] BASIC METABOLIC [id number] 07:04:00* Test Item Value Reference Range Comments SODIUM (BEAKER) (test sjge=552) 129 meq/L 136-145 POTASSIUM (BEAKER) (test hebg=811) 4.1 meq/L 3.5-5.1 CHLORIDE (BEAKER) (test rzed=771) 91 meq/L 98-107 CO2 (BEAKER) (test xdfa=258) 28 meq/L 22-29 BLOOD UREA NITROGEN (BEAKER) (test miab=651) 10 mg/dL 7-21 CREATININE (BEAKER) (test vxhe=767) 0.77 mg/dL 0.57-1.25 GLUCOSE RANDOM (BEAKER) (test cajj=621) 265 mg/dL 70-105 CALCIUM (BEAKER) (test sbnb=367) 9.1 mg/dL 8.4-10.2 EGFR (BEAKER) (test xtyl=2463) 99 mL/min/1.73 sq m ESTIMATED GFR IS NOT ACCURATE CREATININE CLEARANCE IN PREDICTING GLOMERULAR FILTRATION RATE. ESTIMATED GFR IS NOT APPLICABLE FOR DIALYSIS PATIENTS. CBC W/PLT COUNT & AUTO [id number] 06:42:00* Test Item Value Reference Range Comments WHITE BLOOD CELL COUNT (BEAKER) (test auqo=520) 7.2 K/ L 3.5-10.5 RED BLOOD CELL COUNT (BEAKER) (test bwmb=546) 3.79 M/ L 4.63-6.08 HEMOGLOBIN (BEAKER) (test cqpn=053) 11.5 GM/DL 13.7-17.5 HEMATOCRIT (BEAKER) (test efqz=594) 33.4 % 40.1-51.0 MEAN CORPUSCULAR VOLUME (BEAKER) (test cril=698) 88.1 fL 79.0-92.2 MEAN CORPUSCULAR HEMOGLOBIN (BEAKER) (test lsyp=672) 30.3 pg 25.7-32.2 MEAN CORPUSCULAR HEMOGLOBIN CONC (BEAKER) (test krix=543) 34.4 GM/DL 32.3-36.5 RED CELL DISTRIBUTION WIDTH (BEAKER) (test rklo=855) 12.0 % 11.6-14.4 PLATELET COUNT (BEAKER) (test jgjh=672) 237 K/CU MM 150-450 MEAN PLATELET VOLUME (BEAKER) (test zjvt=169) 9.5 fL 9.4-12.4 NUCLEATED RED BLOOD CELLS (BEAKER) (test ykmq=018) 0 /100 WBC 0-0 NEUTROPHILS RELATIVE PERCENT (BEAKER) (test mwhc=018) 88 % LYMPHOCYTES RELATIVE PERCENT (BEAKER) (test jmfn=994) 10 % MONOCYTES RELATIVE PERCENT (BEAKER) (test dlwm=687) 2 % EOSINOPHILS RELATIVE PERCENT (BEAKER) (test dipo=684) 0 % BASOPHILS RELATIVE PERCENT (BEAKER) (test lfdb=499) 0 % NEUTROPHILS ABSOLUTE COUNT (BEAKER) (test fwgr=690) 6.29 K/ L 1.78-5.38 LYMPHOCYTES ABSOLUTE COUNT (BEAKER) (test yvda=810) 0.68 K/ L 1.32-3.57 MONOCYTES ABSOLUTE COUNT (BEAKER) (test tdwf=634) 0.15 K/ L 0.30-0.82 EOSINOPHILS ABSOLUTE COUNT (BEAKER) (test eltv=485) 0.00 K/ L 0.04-0.54 BASOPHILS ABSOLUTE COUNT (BEAKER) (test utnd=685) 0.00 K/ L 0.01-0.08 IMMATURE GRANULOCYTES-RELATIVE PERCENT (BEAKER) (test nkew=3519) 1 % 0-1 POCT-GLUCOSE [id number] 22:24:00* Test Item Value Reference Range Comments POC-GLUCOSE METER (BEAKER) (test ggde=2790) 296 mg/dL 70-110 TESTED AT [address] [address] POCT-GLUCOSE [id number] 17:11:00* Test Item Value Reference Range Comments POC-GLUCOSE METER (BEAKER) (test shzv=8471) 290 mg/dL 70-110 TESTED AT [address] [address] POCT-GLUCOSE [id number] 13:02:00* Test Item Value Reference Range Comments POC-GLUCOSE METER (BEAKER) (test vsuc=6885) 248 mg/dL 70-110 TESTED AT [address] [address] POCT-GLUCOSE [id number] 07:40:00* Test Item Value Reference Range Comments POC-GLUCOSE METER (BEAKER) (test jzlu=3681) 190 mg/dL 70-110 TESTED AT [address] [address] POCT-GLUCOSE [id number] 22:42:00* Test Item Value Reference Range Comments POC-GLUCOSE METER (BEAKER) (test jchk=3585) 317 mg/dL 70-110 TESTED AT [address] [address] POCT-GLUCOSE [id number] 17:46:00* Test Item Value Reference Range Comments POC-GLUCOSE METER (BEAKER) (test vctw=9273) 244 mg/dL 70-110 TESTED AT [address] [address] POCT-GLUCOSE [id number] 11:36:00* Test Item Value Reference Range Comments POC-GLUCOSE METER (BEAKER) (test cbyt=6480) 256 mg/dL 70-110 TESTED AT [address] [address] POCT-GLUCOSE [id number] 07:53:00* Test Item Value Reference Range Comments POC-GLUCOSE METER (BEAKER) (test yyab=7228) 122 mg/dL 70-110 TESTED AT [address] [address] POCT-GLUCOSE [id number] 22:31:00* Test Item Value Reference Range Comments POC-GLUCOSE METER (BEAKER) (test evou=1333) 244 mg/dL 70-110 TESTED AT [address] [address] POCT-GLUCOSE [id number] 17:42:00* Test Item Value Reference Range Comments POC-GLUCOSE METER (BEAKER) (test dbvs=4421) 226 mg/dL 70-110 TESTED AT [address] [address] POCT-GLUCOSE [id number] 12:52:00* Test Item Value Reference Range Comments POC-GLUCOSE METER (BEAKER) (test dzae=8640) 120 mg/dL 70-110 TESTED AT [address] [address] POCT-GLUCOSE [id number] 09:48:00* Test Item Value Reference Range Comments POC-GLUCOSE METER (BEAKER) (test omgf=8028) 139 mg/dL 70-110 TESTED AT [address] [address] TROPONIN [id number] 08:27:00* Test Item Value Reference Range Comments TROPONIN I (BEAKER) (test awfg=276) 0.01 ng/mL 0.00-0.03 Troponin I (TnI) levels must be interpreted in the context of the presenting sym ptoms and the clinical findings. Elevated TnI levels indicate myocardial damage, but are not specific for ischemic heart disease. Elevated TnI levels are seen in patients with other cardiac conditions (including myocarditis and congestive h eart failure), and slight TnI elevations occur in patients with other conditions , including sepsis, renal failure, acidosis, acute neurological disease, and per sistent tachyarrhythmia.POCT-GLUCOSE [id number] 08:17:00* Test Item Value Reference Range Comments POC-GLUCOSE METER (BEAKER) (test shij=9474) 122 mg/dL 70-110 TESTED AT [address] [address] POCT-GLUCOSE [id number] 06:23:00* Test Item Value Reference Range Comments POC-GLUCOSE METER (BEAKER) (test dywy=4232) 134 mg/dL 70-110 TESTED AT [address] [address] POCT-LACTIC ACID, [id number] 00:57:00* Test Item Value Reference Range Comments POC-LACTIC ACID, VENOUS (BEAKER) (test vpyz=2315) 1.2 mmol/L 0.9-1.7 TESTED AT [facility] [address] [facility] [address] RAPID DRUG SCREEN, [id number] 22:28:00* Test Item Value Reference Range Comments BARBITURATE URINE (BEAKER) (test vnsb=292) Negative Negative BENZODIAZEPINE SCREEN URINE (BEAKER) (test fjvo=098) Positive Negative COCAINE (METAB.) SCREEN (BEAKER) (test njqj=5225) Negative Negative METHADONE SCREEN (BEAKER) (test inhw=2946) Negative Negative OPIATE SCREEN URINE (BEAKER) (test uhvd=312) Positive Negative CANNABINOID SCREEN URINE (BEAKER) (test zsur=260) Negative Negative AMPH/METHAMPH SCREEN (BEAKER) (test tasw=1455) Negative Negative PHENCYCLIDINE SCREEN URINE (BEAKER) (test ojcs=434) Negative Negative OXYCODONE SCREEN URINE (BEAKER) (test shtz=6454) Negative Negative DRUG CUTOFF CONC.Cocaine 300 ng/mL Cannabinoid 50 ng/mL Benzodiazepine 200 ng/mLBarbiturate 200 ng/mLPh encyclidine 25 ng/mLOpiate 300 ng/mLMethadone 300 ng/mLAmphetamine/ 1000 ng/mL MethamphetamineOxycodone 300 ng/mLThis assay provides an unconfirmed qualitative test result for the cli nical management of patients in emergency situations. Chain of custody not maint ained. Some azan-xpd-uqyzihe medications, as well as adulterants, may cause inac curate results. Clinical correlation should be applied. A more comprehensive wally g screen or confirmation of a detected drug may be performed upon request. CREATINE KINASE (CK), TOTAL AND [id number] 22:05:00* Test Item Value Reference Range Comments CREATINE KINASE TOTAL (BEAKER) (test imlh=112) 67 U/L 29-200 CREATINE KINASE-MB (BEAKER) (test ugne=409) 0.9 ng/mL 0.0-6.6 CREATINE KINASE-MB INDEX (BEAKER) (test acxk=509) 1.3 % CK-MB Reference Range:<6.7 Normal6.7-10.0 Borderline>10.0 Abnormal TROPONIN [id number] 22:05:00* Test Item Value Reference Range Comments TROPONIN I (BEAKER) (test gjze=948) < ng/mL 0.00-0.03 Troponin I (TnI) levels must be interpreted in the context of the presenting sym ptoms and the clinical findings. Elevated TnI levels indicate myocardial damage, but are not specific for ischemic heart disease. Elevated TnI levels are seen in patients with other cardiac conditions (including myocarditis and congestive h eart failure), and slight TnI elevations occur in patients with other conditions , including sepsis, renal failure, acidosis, acute neurological disease, and per sistent tachyarrhythmia.URINALYSIS W/ REFLEX URINE [id number] 22:03:00* Test Item Value Reference Range Comments COLOR (BEAKER) (test oczk=648) Yellow CLARITY (BEAKER) (test rwfz=235) Clear SPECIFIC GRAVITY UA (BEAKER) (test gjle=544) 1.010 1.001-1.035 PH UA (BEAKER) (test rcuw=552) 5.0 5.0-8.0 PROTEIN UA (BEAKER) (test uzlp=380) Negative Negative GLUCOSE UA (BEAKER) (test atxh=094) 150 mg/dL Negative KETONES UA (BEAKER) (test ynew=908) Negative Negative BILIRUBIN UA (BEAKER) (test vemp=775) Negative Negative BLOOD UA (BEAKER) (test vceo=012) Negative Negative NITRITE UA (BEAKER) (test iwew=761) Negative Negative LEUKOCYTE ESTERASE UA (BEAKER) (test xyli=345) Negative Negative UROBILINOGEN UA (BEAKER) (test wvur=889) 0.2 mg/dL 0.2-1.0 RBC UA (BEAKER) (test tqla=143) < /HPF WBC UA (BEAKER) (test nqmf=083) 0 /HPF BACTERIA (BEAKER) (test ettr=379) Rare SQUAMOUS EPITHELIAL (BEAKER) (test jaim=879) < /HPF SOURCE(BEAKER) (test lpii=1890) B-TYPE NATRIURETIC FACTOR (BNP)[id number] 22:01:00* Test Item Value Reference Range Comments B-TYPE NATRIURETIC PEPTIDE (BEAKER) (test iqal=386) 92 pg/mL 0-100 [id number] 21:59:00* Test Item Value Reference Range Comments LIPASE (BEAKER) (test zgtc=578) 21 U/L 8-78 COMPREHENSIVE METABOLIC [id number] 21:59:00* Test Item Value Reference Range Comments TOTAL PROTEIN (BEAKER) (test lnmg=302) 7.6 gm/dL 6.0-8.3 ALBUMIN (BEAKER) (test pqcy=0695) 4.3 g/dL 3.5-5.0 ALKALINE PHOSPHATASE (BEAKER) (test fuwd=798) 77 U/L 40-150 BILIRUBIN TOTAL (BEAKER) (test yhyz=477) 0.6 mg/dL 0.2-1.2 SODIUM (BEAKER) (test omyd=841) 133 meq/L 136-145 POTASSIUM (BEAKER) (test zxys=553) 4.8 meq/L 3.5-5.1 CHLORIDE (BEAKER) (test fiqb=403) 95 meq/L 98-107 CO2 (BEAKER) (test jhhc=632) 27 meq/L 22-29 BLOOD UREA NITROGEN (BEAKER) (test eplx=384) 14 mg/dL 7-21 CREATININE (BEAKER) (test cpdo=780) 1.06 mg/dL 0.57-1.25 GLUCOSE RANDOM (BEAKER) (test rnbu=890) 215 mg/dL 70-105 CALCIUM (BEAKER) (test gsqm=088) 9.3 mg/dL 8.4-10.2 AST (SGOT) (BEAKER) (test xjtl=669) 19 U/L 5-34 ALT (SGPT) (BEAKER) (test axfc=521) 14 U/L 6-55 EGFR (BEAKER) (test otaw=6711) 69 mL/min/1.73 sq m ESTIMATED GFR IS NOT ACCURATE CREATININE CLEARANCE IN PREDICTING GLOMERULAR FILTRATION RATE. ESTIMATED GFR IS NOT APPLICABLE FOR DIALYSIS PATIENTS. KETONE, [id number] 21:49:00* Test Item Value Reference Range Comments KETONES, BLOOD (BEAKER) (test dlwe=6607) 0.1 mmol/L <0.4 CBC W/PLT COUNT & AUTO [id number] 21:46:00* Test Item Value Reference Range Comments WHITE BLOOD CELL COUNT (BEAKER) (test wfkw=359) 14.8 K/ L 3.5-10.5 RED BLOOD CELL COUNT (BEAKER) (test fnkv=840) 4.35 M/ L 4.63-6.08 HEMOGLOBIN (BEAKER) (test iyjr=060) 13.3 GM/DL 13.7-17.5 HEMATOCRIT (BEAKER) (test lgry=698) 39.8 % 40.1-51.0 MEAN CORPUSCULAR VOLUME (BEAKER) (test khnz=810) 91.5 fL 79.0-92.2 MEAN CORPUSCULAR HEMOGLOBIN (BEAKER) (test olvb=650) 30.6 pg 25.7-32.2 MEAN CORPUSCULAR HEMOGLOBIN CONC (BEAKER) (test laag=199) 33.4 GM/DL 32.3-36.5 RED CELL DISTRIBUTION WIDTH (BEAKER) (test aays=331) 12.6 % 11.6-14.4 PLATELET COUNT (BEAKER) (test zrlb=653) 300 K/CU MM 150-450 MEAN PLATELET VOLUME (BEAKER) (test twdm=286) 9.6 fL 9.4-12.4 NUCLEATED RED BLOOD CELLS (BEAKER) (test wbvm=043) 0 /100 WBC 0-0 NEUTROPHILS RELATIVE PERCENT (BEAKER) (test trzf=978) 89 % LYMPHOCYTES RELATIVE PERCENT (BEAKER) (test mocl=303) 5 % MONOCYTES RELATIVE PERCENT (BEAKER) (test shiu=150) 5 % EOSINOPHILS RELATIVE PERCENT (BEAKER) (test gaeo=942) 1 % BASOPHILS RELATIVE PERCENT (BEAKER) (test cyhe=090) 0 % NEUTROPHILS ABSOLUTE COUNT (BEAKER) (test kjsv=162) 13.19 K/ L 1.78-5.38 LYMPHOCYTES ABSOLUTE COUNT (BEAKER) (test tdqf=486) 0.75 K/ L 1.32-3.57 MONOCYTES ABSOLUTE COUNT (BEAKER) (test teoh=899) 0.72 K/ L 0.30-0.82 EOSINOPHILS ABSOLUTE COUNT (BEAKER) (test bllt=708) 0.07 K/ L 0.04-0.54 BASOPHILS ABSOLUTE COUNT (BEAKER) (test kixa=879) 0.04 K/ L 0.01-0.08 IMMATURE GRANULOCYTES-RELATIVE PERCENT (BEAKER) (test oaib=0780) 1 % 0-1 POCT-LACTIC ACID, [id number] 21:40:00* Test Item Value Reference Range Comments POC-LACTIC ACID, VENOUS (BEAKER) (test mqwn=4701) 2.3 mmol/L 0.9-1.7 TESTED AT [address] [address] BLOOD GAS, [id number] 21:39:00* Test Item Value Reference Range Comments PH VENOUS (BEAKER) (test ljcy=965) 7.30 7.32-7.42 PCO2 VENOUS (BEAKER) (test mvrh=208) 61 mmHg 41-51 PO2 VENOUS (BEAKER) (test qqgl=323) 47 mmHg 25-40 O2 SATURATION VENOUS (BEAKER) (test fdri=328) 80.5 % 40.0-70.0 HCO3 VENOUS (BEAKER) (test lwfz=157) 29 mmol/L 21-29 BASE EXCESS VENOUS (BEAKER) (test zfit=437) 1.2 mmol/L -2.0-3.0 PATIENT TEMPERATURE (BEAKER) (test fcwu=4010) 36.0 C FIO2 (BEAKER) (test ebtz=7516) 21.0 % RAD, CHEST, 1 VIEW, NON [id number] 21:30:00Reason for exam:->SHORTNESS OF BREATHShould this be performed at the bedside?->YesFINAL REPORT AP chest HISTORY: Shortness of breath COMPARISON: 04/28/2017 IMPRESSION:Status post median sternotomy. Heart size upper limits of normal. Thoracic aortic ectasia. Right hemidiaphragm elevation. Right basilar opacity suggests atelectasis or scarring. Left lung clear. No pneumothorax. Signed: Yrn Soares MDReport Verified Date/Time: 01/10/2018 21:30:44 Reading Location: [address] Consult Reading Room -GLUCOSE [id number] 21:15:00* Test Item Value Reference Range Comments POC-GLUCOSE METER (BEAKER) (test tybv=2446) 221 mg/dL 70-110 TESTED AT [address] [address] POCT-GLUCOSE [id number] 07:36:00* Test Item Value Reference Range Comments POC-GLUCOSE METER (BEAKER) (test ayzg=2643) 174 mg/dL 70-110 TESTED AT [address] [address] POCT-GLUCOSE [id number] 21:00:00* Test Item Value Reference Range Comments POC-GLUCOSE METER (BEAKER) (test yccy=7718) 130 mg/dL 70-110 TESTED AT [facility] [address] [facility] [address] POCT-GLUCOSE [id number] 17:32:00* Test Item Value Reference Range Comments POC-GLUCOSE METER (BEAKER) (test tdia=3290) 105 mg/dL 70-110 TESTED AT [place] [id number] [facility] [address] POCT-GLUCOSE [id number] 16:50:00* Test Item Value Reference Range Comments POC-GLUCOSE METER (BEAKER) (test vltk=2578) 104 mg/dL 70-110 TESTED AT [address] [address] PET, CARDIAC PERFUSION MULTIPLE STUDIES, REST AND [id number] 16:08:00 Reason for exam:->Pre-op, atypical chest pain, CADFINAL REPORT PROCEDURE: Rest/Stress MYOCARDIAL PERFUSION PET with regadenoson\XA9\CPT CODE: [id number]: Atypical chest pain, CAD, preoperative evaluationHISTORY: Cardiac risk factors: Diabetes, hypertension. Other cardiovascular history: Prior ACB. Recent cardiac symptoms: Atypical chest pain.PROTOCOL: Limited low-dose CT imaging was performed for attenuation correction. 40.0 mCi of Rb-82 chloride was injected iv at rest, and gated PET (positron emission tomography) images were obtained. Subsequently, 39.6 mCi of Rb-82 chloride was injected iv at expected peak pharmacologic effect, and gated PET images were obtained. PRELIMINARY STRESS TEST DATA FROM NONINVASIVE CARDIOLOGY: Pharmacologic stress was by 10-second iv infusion of 0.4 mg of regadenoson. Radiotracer was injected 30 seconds after start of stress. Heart rate was 56 beats/min at rest and 61 beats/min (41% of MPHR) at tracer injection. BP was 99/40 mmHg at rest and 92/33 mmHg at tracer injection. Stress was stopped for predetermined endpoint. The patient experienced no sympto ms; treatment was not required. Preliminary ECG evaluation revealed sinus rhythm at rest and no ischemic changes with stress. (Final ECG interpretation and other stress and monitoring data are reported separately by Cardiology.) IMAGING FI NDINGS: Study quality is good. Images obtained after rest and stress injecti ons show normal LV activity. LV and RV volumes appear normal. Gated images obtai martina at rest and with stress show normal LV wall motion and thickening. LVEF at r est is 59%. LVEF at stress is 63%. IMPRESSION: 1. Normal cardiac study. 2. Appropriate pharmacologic stress. 3. Normal myocardial perfusion. 4. Normal re sting LV function. No deterioration with pharmacologic stress. 5. Normal extrac ardiac tracer distribution. Limited CT images show multifocal pleural calcificat ion in the right hemithorax. 6. The previous study of 06/25/2009 also showed norm al perfusion. Signed: Angel Redman MDReport Verified Date/Time: 04/30/2017 16 :08:35 Reading Location: [address] [address] Reading [facility] signed by: ANGEL REDMAN MD on 04/30/2017 04:08 PM POCT-GLUCOSE METER 2017-04-30 12:26:00* Test Item Value Reference Range Comments POC-GLUCOSE METER (BEAKER) (test oekd=5293) 121 mg/dL 70-110 TESTED AT [address] [address] POCT-GLUCOSE [id number] 08:14:00* Test Item Value Reference Range Comments POC-GLUCOSE METER (BEAKER) (test bspt=6384) 121 mg/dL 70-110 TESTED AT [address] [address] POCT-GLUCOSE [id number] 08:14:00* Test Item Value Reference Range Comments POC-GLUCOSE METER (BEAKER) (test nsac=6342) 44 mg/dL 70-110 Notified AUBREE BIGGS/TESTED AT [address] [address] POCT-GLUCOSE [id number] 21:16:00* Test Item Value Reference Range Comments POC-GLUCOSE METER (BEAKER) (test atbc=4719) 205 mg/dL 70-110 TESTED AT [address] [address] POCT-GLUCOSE [id number] 17:27:00* Test Item Value Reference Range Comments POC-GLUCOSE METER (BEAKER) (test inzb=5263) 154 mg/dL 70-110 TESTED AT [address] [address] [address], CTANGIO [id number] 14:04:00Reason for exam:->Symptoms onset less than 6 hours and NIHSS 6 or greaterFINAL REPORT CTA head and neck with contrast, CT perfusion with contrast INDICATION: Arterial stricture, contusion TECHNIQUE: Axial noncontrast CT images of the head were obtained. Subsequently, axial intravenous contrast enhanced CTA images of the head and neck were obtained. A contrast enhanced CT perfusion study was performed with generation of perfusion maps on a separate workstation. Multiplanar and 3-D volume rendered reconstruction images were generated on a separate workstation for better delineation of the vascular anatomy. This exam was performed according to our departmental dose optimization program which includes automated exposure control, adjustment of the mA and/or kV according to patient size and/or use of iterative reconstruction technique. COMPARISON: CT head 04/27/2017 FINDINGS: CT head:There is no acute intracranial hemorrhage or mass effect. Microvascular ischemic changes are similar to the prior study and chronic appearing. Please note that CT is insensitive for early or small infarcts. Generalized volume loss and vascular consultations are noted. There is no hydrocephalus or midline shift. The visualized sinuses, mastoid air cells, and orbits are unremarkable. The calvarium is intact. CTA neck:There is conventional aortic arch anatomy. There is atherosclerotic plaque in the arch and proximal great vessels with mild to moderate proximal right subclavian artery stenosis. T here is scattered plaque in the common carotid arteries with mild stenosis in th e mid segments. There is carotid bifurcation and bulb atherosclerosis. There is severe left proximal cervical ICA stenosis, on the order of 90% by NASCET criter ia but suboptimally quantified due to plaque calcification. Right proximal cervi kay ICA stenosis is approximately 30%. There is distal left cervical ICA atheros clerosis without significant stenosis. The proximal external carotid arteries ar e uncompromised. There is atheromatous chronic plaque at the vertebral artery or igins with mild to moderate stenosis on the left. There are moderate proximal an d mild distal vertebral artery V2 segment spondylotic stenoses. CTA head:There i s bilateral carotid siphon atherosclerosis with mild to moderate left and mild r ight supraclinoid ICA stenosis. There are mild bilateral intradural vertebral ar cynthia stenoses. There is moderate left mid SLPS stenosis. The remaining proximal c ircle of [place] vessels demonstrate no high grade stenosis or major branch occlu urmila. No saccular aneurysm is seen. CT perfusion:There is symmetrical cerebral b lood volume in both cerebral hemispheres. There is diminished cerebral blood wilmer w in the left occipital and mesial temporal lobe in the SLPS territory. There is corresponding prolonged time to peak and mean transit time. Although nonspecific in the absence of acute ischemia, these findings correlate to the left SLPS sten osis noted above. Other findings:Cervical spine degenerative changes are present , as on the earlier MRI of 04/28/2017. Right upper lobe lung opacity with suture lines in nodular thickening is likely postoperative in nature and due to scarri ng. Lung neoplasm cannot be excluded, however. Advise chest CT follow up. Median sternotomy changes are noted. IMPRESSION: 1. Severe left proximal cervical ICA stenosis, on the order of 90% by NASCET criteria but suboptimally quantified due to plaque calcification. Ultrasound can be obtained for additional noninvasive assessment. 2. Mild right proximal cervical ICA stenosis, up to 30%. 3. Mild to moderate left vertebral artery origin and moderate bilateral vertebral artery V2 segment stenoses. 4. Moderate left mid SLPS, mild to moderate left supraclinoid ICA, and other mild intracranial atherosclerosis stenoses. No [place] m ajor branch occlusion seen. 5. Diminished cerebral perfusion parameters in the l eft SLPS territory which could correlate to the left SLPS stenosis. 6. Cervical sp ine degenerative changes. 7. Right lung postsurgical changes with nodular opacit ies, possibly scarring. As lung neoplasm cannot be excluded, chest CT follow up is suggested. Findings discussed with Dr. Parham (neurosurgery) at 1:30 PM Kathi d: Elsa Aguilar Verified Date/Time: 04/29/2017 14:04:03 Jv cabrales Location: [address] Neuro Reading Room , CAROTID, [id number] 14:04:00 Reason for exam:->Symptoms onset less than 6 hours and NIHSS 6 or greaterFINAL REPORT CTA head and neck with contrast, CT perfusion with contrast INDICATION: Arterial stricture, contusion TECHNIQUE: Axial noncontrast CT images of the head were obtained. Subsequently, axial intravenous contrast enhanced CTA images of the head and neck were obtained. A contrast enhanced CT perfusion study was performed with generation of perfusion maps on a separate workstation. Multiplanar and 3-D volume rendered reconstruction images were ge nerated on a separate workstation for better delineation of the vascular anatomy . This exam was performed according to our departmental dose optimization progra m which includes automated exposure control, adjustment of the mA and/or kV acco rding to patient size and/or use of iterative reconstruction technique. COMPARIS ON: CT head 04/27/2017 FINDINGS: CT head:There is no acute intracranial hemorrha ge or mass effect. Microvascular ischemic changes are similar to the prior study and chronic appearing. Please note that CT is insensitive for early or small in farcts. Generalized volume loss and vascular consultations are noted. There is n o hydrocephalus or midline shift. The visualized sinuses, mastoid air cells, and orbits are unremarkable. The calvarium is intact. CTA neck:There is conventional aortic arch anatomy. There is atherosclerotic plaque in the arch and proximal great vessels with mild to moderate proximal right subclavian artery stenosis. T here is scattered plaque in the common carotid arteries with mild stenosis in th e mid segments. There is carotid bifurcation and bulb atherosclerosis. There is severe left proximal cervical ICA stenosis, on the order of 90% by NASCET criter ia but suboptimally quantified due to plaque calcification. Right proximal cervi kay ICA stenosis is approximately 30%. There is distal left cervical ICA atheros clerosis without significant stenosis. The proximal external carotid arteries ar e uncompromised. There is atheromatous chronic plaque at the vertebral artery or igins with mild to moderate stenosis on the left. There are moderate proximal an d mild distal vertebral artery V2 segment spondylotic stenoses. CTA head:There i s bilateral carotid siphon atherosclerosis with mild to moderate left and mild r ight supraclinoid ICA stenosis. There are mild bilateral intradural vertebral ar cynthia stenoses. There is moderate left mid SLPS stenosis. The remaining proximal c ircle of Armstrong vessels demonstrate no high grade stenosis or major branch occlu urmila. No saccular aneurysm is seen. CT perfusion:There is symmetrical cerebral b lood volume in both cerebral hemispheres. There is diminished cerebral blood wilmer w in the left occipital and mesial temporal lobe in the SLPS territory. There is corresponding prolonged time to peak and mean transit time. Although nonspecific in the absence of acute ischemia, these findings correlate to the left SLPS sten osis noted above. Other findings:Cervical spine degenerative changes are present , as on the earlier MRI of 04/28/2017. Right upper lobe lung opacity with suture lines in nodular thickening is likely postoperative in nature and due to scarri ng. Lung neoplasm cannot be excluded, however. Advise chest CT follow up. Median sternotomy changes are noted. IMPRESSION: 1. Severe left proximal cervical ICA stenosis, on the order of 90% by NASCET criteria but suboptimally quantified due to plaque calcification. Ultrasound can be obtained for additional noninvasive assessment. 2. Mild right proximal cervical ICA stenosis, up to 30%. 3. Mild to moderate left vertebral artery origin and moderate bilateral vertebral artery V2 segment stenoses. 4. Moderate left mid SLPS, mild to moderate left supraclinoid ICA, and other mild intracranial atherosclerosis stenoses. No [place] m ajor branch occlusion seen. 5. Diminished cerebral perfusion parameters in the l eft SLPS territory which could correlate to the left SLPS stenosis. 6. Cervical sp ine degenerative changes. 7. Right lung postsurgical changes with nodular opacit ies, possibly scarring. As lung neoplasm cannot be excluded, chest CT follow up is suggested. Findings discussed with Dr. Parham (neurosurgery) at 1:30 PM Kathi d: Elsa Aguilareport Verified Date/Time: 04/29/2017 14:04:03 Jv cabrales Location: [address] Neuro Reading Room , CEREBRAL PERFUSION ANALYSIS 2017-04-29 14:04:00Reason for exam:->pre-op rule out vertebral insuffiencyFINAL REPORT CTA head and neck with contrast, CT perfusion with contrast INDICATION: Arterial stricture, contusion TECHNIQUE: Axial noncontrast CT images of the head were obtained. Subsequently, axial intravenous contrast enhanced CTA images of the head and neck were obtained. A contrast enhanced CT perfusion study was performed with generation of perfusion maps on a separate workstation. Multiplanar and 3-D volume rendered reconstruction images were ge nerated on a separate workstation for better delineation of the vascular anatomy . This exam was performed according to our departmental dose optimization progra m which includes automated exposure control, adjustment of the mA and/or kV acco rding to patient size and/or use of iterative reconstruction technique. COMPARIS ON: CT head 04/27/2017 FINDINGS: CT head:There is no acute intracranial hemorrha ge or mass effect. Microvascular ischemic changes are similar to the prior study and chronic appearing. Please note that CT is insensitive for early or small in farcts. Generalized volume loss and vascular consultations are noted. There is n o hydrocephalus or midline shift. The visualized sinuses, mastoid air cells, and orbits are unremarkable. The calvarium is intact. CTA neck:There is conventional aortic arch anatomy. There is atherosclerotic plaque in the arch and proximal great vessels with mild to moderate proximal right subclavian artery stenosis. T here is scattered plaque in the common carotid arteries with mild stenosis in th e mid segments. There is carotid bifurcation and bulb atherosclerosis. There is severe left proximal cervical ICA stenosis, on the order of 90% by NASCET criter ia but suboptimally quantified due to plaque calcification. Right proximal cervi kay ICA stenosis is approximately 30%. There is distal left cervical ICA atheros clerosis without significant stenosis. The proximal external carotid arteries ar e uncompromised. There is atheromatous chronic plaque at the vertebral artery or igins with mild to moderate stenosis on the left. There are moderate proximal an d mild distal vertebral artery V2 segment spondylotic stenoses. CTA head:There i s bilateral carotid siphon atherosclerosis with mild to moderate left and mild r ight supraclinoid ICA stenosis. There are mild bilateral intradural vertebral ar cynthia stenoses. There is moderate left mid SLPS stenosis. The remaining proximal c ircle of [place] vessels demonstrate no high grade stenosis or major branch occlu urmila. No saccular aneurysm is seen. CT perfusion:There is symmetrical cerebral b lood volume in both cerebral hemispheres. There is diminished cerebral blood wilmer w in the left occipital and mesial temporal lobe in the SLPS territory. There is corresponding prolonged time to peak and mean transit time. Although nonspecific in the absence of acute ischemia, these findings correlate to the left SLPS sten osis noted above. Other findings:Cervical spine degenerative changes are present , as on the earlier MRI of 04/28/2017. Right upper lobe lung opacity with suture lines in nodular thickening is likely postoperative in nature and due to scarri ng. Lung neoplasm cannot be excluded, however. Advise chest CT follow up. Median sternotomy changes are noted. IMPRESSION: 1. Severe left proximal cervical ICA stenosis, on the order of 90% by NASCET criteria but suboptimally quantified due to plaque calcification. Ultrasound can be obtained for additional noninvasive assessment. 2. Mild right proximal cervical ICA stenosis, up to 30%. 3. Mild to moderate left vertebral artery origin and moderate bilateral vertebral artery V2 segment stenoses. 4. Moderate left mid SLPS, mild to moderate left supraclinoid ICA, and other mild intracranial atherosclerosis stenoses. No [place] m ajor branch occlusion seen. 5. Diminished cerebral perfusion parameters in the l eft SLPS territory which could correlate to the left SLPS stenosis. 6. Cervical sp ine degenerative changes. 7. Right lung postsurgical changes with nodular opacit ies, possibly scarring. As lung neoplasm cannot be excluded, chest CT follow up is suggested. Findings discussed with Dr. Parham (neurosurgery) at 1:30 PM Kathi d: Elsa Aguilar MDReport Verified Date/Time: 04/29/2017 14:04:03 Jv cabrales Location: [address] Neuro Reading Room -GLUCOSE [id number] 13:52:00* Test Item Value Reference Range Comments POC-GLUCOSE METER (BEAKER) (test ccxe=2340) 96 mg/dL 70-110 TESTED AT [facility] [address] [facility] [address] [id number] 09:45:00* Test Item Value Reference Range Comments PARTIAL THROMBOPLASTIN TIME (BEAKER) (test uzft=813) 31.9 seconds 22.5-36.0 PROTHROMBIN TIME/[id number] 09:44:00* Test Item Value Reference Range Comments PROTIME (BEAKER) (test mexo=471) 14.3 seconds 11.7-14.7 INR (BEAKER) (test fxus=895) 1.1 <=5.9 RECOMMENDED COUMADIN/WARFARIN INR THERAPY RANGESSTANDARD DOSE: 2.0 - 3.0 Inclu renetta: PROPHYLAXIS for venous thrombosis, systemic embolization; TREATMENT for kurt ous thrombosis and/or pulmonary embolus.HIGH RISK: Target INR is 2.5-3.5 for pat ients with mechanical heart valves.BASIC METABOLIC [id number] 09:22:00* Test Item Value Reference Range Comments SODIUM (BEAKER) (test sfkl=982) 138 meq/L 136-145 POTASSIUM (BEAKER) (test dekj=331) 4.4 meq/L 3.5-5.1 CHLORIDE (BEAKER) (test jslz=634) 101 meq/L 98-107 CO2 (BEAKER) (test btcn=374) 25 meq/L 22-29 BLOOD UREA NITROGEN (BEAKER) (test vqai=434) 18 mg/dL 7-21 CREATININE (BEAKER) (test pupx=156) 1.09 mg/dL 0.57-1.25 GLUCOSE RANDOM (BEAKER) (test ruso=572) 190 mg/dL 70-105 CALCIUM (BEAKER) (test fdyu=576) 9.3 mg/dL 8.4-10.2 EGFR (BEAKER) (test xyxf=6592) 66 mL/min/1.73 sq m ESTIMATED GFR IS NOT ACCURATE CREATININE CLEARANCE IN PREDICTING GLOMERULAR FILTRATION RATE. ESTIMATED GFR IS NOT APPLICABLE FOR DIALYSIS PATIENTS. POCT-GLUCOSE [id number] 08:45:00* Test Item Value Reference Range Comments POC-GLUCOSE METER (BEAKER) (test midc=0422) 226 mg/dL 70-110 TESTED AT [address] [address] CBC W/PLT COUNT & AUTO [id number] 08:45:00* Test Item Value Reference Range Comments WHITE BLOOD CELL COUNT (BEAKER) (test utai=193) 15.3 K/ L 3.5-10.5 RED BLOOD CELL COUNT (BEAKER) (test pwxw=397) 4.25 M/ L 4.63-6.08 HEMOGLOBIN (BEAKER) (test qvta=017) 12.9 GM/DL 13.7-17.5 HEMATOCRIT (BEAKER) (test xfln=051) 38.1 % 40.1-51.0 MEAN CORPUSCULAR VOLUME (BEAKER) (test ndcg=458) 89.6 fL 79.0-92.2 MEAN CORPUSCULAR HEMOGLOBIN (BEAKER) (test mkfn=683) 30.4 pg 25.7-32.2 MEAN CORPUSCULAR HEMOGLOBIN CONC (BEAKER) (test wucm=609) 33.9 GM/DL 32.3-36.5 RED CELL DISTRIBUTION WIDTH (BEAKER) (test zbxu=992) 12.8 % 11.6-14.4 PLATELET COUNT (BEAKER) (test mgjv=176) 251 K/CU MM 150-450 MEAN PLATELET VOLUME (BEAKER) (test drrz=652) 10.2 fL 9.4-12.4 NUCLEATED RED BLOOD CELLS (BEAKER) (test jaet=579) 0 /100 WBC 0-0 NEUTROPHILS RELATIVE PERCENT (BEAKER) (test pzbq=709) 78 % LYMPHOCYTES RELATIVE PERCENT (BEAKER) (test zsij=322) 14 % MONOCYTES RELATIVE PERCENT (BEAKER) (test gebs=227) 7 % EOSINOPHILS RELATIVE PERCENT (BEAKER) (test wfup=909) 0 % BASOPHILS RELATIVE PERCENT (BEAKER) (test feyh=520) 0 % NEUTROPHILS ABSOLUTE COUNT (BEAKER) (test zmbk=243) 12.01 K/ L 1.78-5.38 LYMPHOCYTES ABSOLUTE COUNT (BEAKER) (test yjuo=160) 2.16 K/ L 1.32-3.57 MONOCYTES ABSOLUTE COUNT (BEAKER) (test pbtw=063) 1.03 K/ L 0.30-0.82 EOSINOPHILS ABSOLUTE COUNT (BEAKER) (test xvod=251) 0.01 K/ L 0.04-0.54 BASOPHILS ABSOLUTE COUNT (BEAKER) (test lmdg=713) 0.03 K/ L 0.01-0.08 IMMATURE GRANULOCYTES-RELATIVE PERCENT (BEAKER) (test qgcq=2100) 1 % 0-1 POCT-GLUCOSE [id number] 23:22:00* Test Item Value Reference Range Comments POC-GLUCOSE METER (BEAKER) (test ytyd=4357) 391 mg/dL 70-110 TESTED AT [facility] [address] [facility] [address] RAD, CHEST, 2 [id number] 22:23:00Reason for exam:->DIZZINESSFINAL REPORT Examination: Two view Chest X-ray. CLINICAL HISTORY: Dizziness COMPARISON: 04/27/2017 The cardiac silhouette is within normal limits for size. Sternotomy wires are in place. Post surgical changes are noted in the right upper lung. The right hemidiaphragm is elevated. Curvilinear opacity in the right lower lung suggests atelectasis. There is no pneumothorax, large pleural effusion or evidence of overt pulmonary edema or acute bony abnormality. Signed: Kirk Gallo MDReport Verified Date/Time: 04/28/2017 22:23:08 Reading Location: [address] Reading Room -GLUCOSE [id number] 21:40:00* Test Item Value Reference Range Comments POC-GLUCOSE METER (BEAKER) (test wqie=9577) 423 mg/dL 70-110 Notified [facility]/TESTED AT [address] [address] POCT-GLUCOSE [id number] 17:33:00* Test Item Value Reference Range Comments POC-GLUCOSE METER (BEAKER) (test xapo=0587) 261 mg/dL 70-110 TESTED AT [address] [address] POCT-GLUCOSE [id number] 14:05:00* Test Item Value Reference Range Comments POC-GLUCOSE METER (BEAKER) (test gowk=5071) 393 mg/dL 70-110 TESTED AT [address] [address] MR, SPINE, CERVICAL, WITHOUT [id number] 12:59:00FINAL REPORT MR cervical spine without contrast INDICATION: Cervical spinal stenosis, recent trauma TECHNIQUE: MRI of the cervical spine utilizing the following sequences: Sagittal T1, T2, STIR; axial T1 and T2 COMPARISON: MRI cervical spine 06/20/2012 FINDINGS:There is mild cervical lordosis reversal with minimal retrolisthesis at C4-5 and C5-6. Vertebral height and alignment are otherwise maintained. There is nonspecific marrow signal heterogeneity with degenerative endplate changes. No prevertebral edema, ligamentous edema, or new cord signal abnormality is seen. Faint cord signal changes at C5-6 are stable and suggest chronic myelopathy. C2-3: Small uncovertebral osteophytes and mild f acet arthropathy. No significant canal or foraminal stenosis. C3-4: Disc bulge e xtending into the foraminal regions, endplate and uncovertebral osteophytes, and facet arthropathy. Mild canal stenosis with ventral cord flattening. Moderate to severe right and moderate left foraminal stenosis. C4-5: Disc bulge extending to the foraminal regions, endplate and uncovertebral osteophytes, and facet arth ropathy. Mild canal stenosis ventral cord flattening. Moderate to severe right a nd severe left foraminal stenosis. C5-6: Disc degeneration and bulge extending i nto the foraminal regions, endplate and uncovertebral osteophytes, facet arthrop athy, and posterior ligamentous buckling. Moderate to severe canal stenosis with cord impingement. Severe bilateral foraminal stenosis. C6-7: Disc bulge extendi ng into the foraminal regions, endplate and uncovertebral osteophytes, facet art hropathy, and posterior ligamentous buckling. Mild canal stenosis. Moderate to s evere bilateral foraminal stenosis. C7-T1: Uncovertebral osteophytes and facet a rthropathy with mild right and mild to moderate left foraminal stenosis. No sign ificant canal stenosis. There is paraspinal muscle deconditioning. IMPRESSION: 1 . No evident acute ligamentous injury or cord contusion. 2. Multilevel degenerat marleen changes, minimally progressed since 2012 with moderate to severe C5-6 and mi ld C3-4, C4-5, and C6-7 canal stenosis. 3. Severe C4-5 and C5-6 foraminal stenos es, and other lesser foraminal stenoses as detailed above. Advise correlation wi th radiculopathic symptoms. 4. Stable C5-6 cord signal changes suggest chronic m yelopathy. Signed: Elsa Aguilar MDReport Verified Date/Time: 04/28/2017 12:59:08 Reading Location: [address] Neuro Reading Room Electronically sig martina by: ELSA AGUILAR M.D. on 04/28/2017 12:59 PM POCT-GLUCOSE METER 2017-04-28 08:05:00* Test Item Value Reference Range Comments POC-GLUCOSE METER (BEAKER) (test wmku=9585) 105 mg/dL 70-110 TESTED AT [address] [address] [address], SPINE, CERVICAL, WO [id number] 20:12:00Reason for exam:->traumaWhat is the patient's sedation requirement?->No SedationFINAL REPORT CT cervical spine without contrast 04/27/2017 8:10 PM CLINICAL HISTORY: traumaneck pain COMPARISON: None available TECHNIQUE: Axial noncontrast CT images of the cervical spine were obtained. Axially acquired data were reformatted in coronal and sagittal planes for further analysis. This examination was performed according to our departmental dose optimization pr ogram, which includes automated exposure control, adjustment of the mA and/or kV according to patient size, and/or use of iterated reconstruction technique. FIN DINGS: There is no fracture or traumatic malalignment. There are no osteolytic o r osteoblastic lesions. Spinal canal diameter is within normal limits. There are multilevel degenerative changes, with high-grade central canal stenosis at C5-6. The visualized soft tissue is without worrisome finding. IMPRESSION: No cervical spine fracture or traumatic malalignment. Signed: Shayna Verma Date/Time: 04/27/2017 20:12:03 Reading Location: [facility] Radiology Reading Room C METABOLIC [id number] 14:31:00* Test Item Value Reference Range Comments SODIUM (BEAKER) (test daye=451) 139 meq/L 136-145 POTASSIUM (BEAKER) (test hagm=888) 4.6 meq/L 3.5-5.1 CHLORIDE (BEAKER) (test iyla=336) 102 meq/L 98-107 CO2 (BEAKER) (test ygip=731) 27 meq/L 22-29 BLOOD UREA NITROGEN (BEAKER) (test kfst=394) 16 mg/dL 7-21 CREATININE (BEAKER) (test rser=860) 1.20 mg/dL 0.57-1.25 GLUCOSE RANDOM (BEAKER) (test pvby=235) 130 mg/dL 70-105 CALCIUM (BEAKER) (test mxxn=989) 9.8 mg/dL 8.4-10.2 EGFR (BEAKER) (test kcmg=9376) 60 mL/min/1.73 sq m ESTIMATED GFR IS NOT ACCURATE CREATININE CLEARANCE IN PREDICTING GLOMERULAR FILTRATION RATE. ESTIMATED GFR IS NOT APPLICABLE FOR DIALYSIS PATIENTS. CBC W/PLT COUNT & AUTO [id number] 13:57:00* Test Item Value Reference Range Comments WHITE BLOOD CELL COUNT (BEAKER) (test thsv=291) 8.8 K/ L 3.5-10.5 RED BLOOD CELL COUNT (BEAKER) (test swfk=373) 4.48 M/ L 4.63-6.08 HEMOGLOBIN (BEAKER) (test qqlv=845) 13.5 GM/DL 13.7-17.5 HEMATOCRIT (BEAKER) (test qybb=760) 40.5 % 40.1-51.0 MEAN CORPUSCULAR VOLUME (BEAKER) (test aojq=477) 90.4 fL 79.0-92.2 MEAN CORPUSCULAR HEMOGLOBIN (BEAKER) (test nkkv=830) 30.1 pg 25.7-32.2 MEAN CORPUSCULAR HEMOGLOBIN CONC (BEAKER) (test mcvo=267) 33.3 GM/DL 32.3-36.5 RED CELL DISTRIBUTION WIDTH (BEAKER) (test gjch=802) 13.0 % 11.6-14.4 PLATELET COUNT (BEAKER) (test uioc=864) 265 K/CU MM 150-450 MEAN PLATELET VOLUME (BEAKER) (test pwxv=731) 10.5 fL 9.4-12.4 NUCLEATED RED BLOOD CELLS (BEAKER) (test hnnc=586) 0 /100 WBC 0-0 NEUTROPHILS RELATIVE PERCENT (BEAKER) (test exhn=234) 57 % LYMPHOCYTES RELATIVE PERCENT (BEAKER) (test wgsp=299) 30 % MONOCYTES RELATIVE PERCENT (BEAKER) (test wyjr=788) 8 % EOSINOPHILS RELATIVE PERCENT (BEAKER) (test gysh=257) 4 % BASOPHILS RELATIVE PERCENT (BEAKER) (test nhba=420) 1 % NEUTROPHILS ABSOLUTE COUNT (BEAKER) (test iuho=270) 4.99 K/ L 1.78-5.38 LYMPHOCYTES ABSOLUTE COUNT (BEAKER) (test tpkh=649) 2.64 K/ L 1.32-3.57 MONOCYTES ABSOLUTE COUNT (BEAKER) (test ilev=763) 0.72 K/ L 0.30-0.82 EOSINOPHILS ABSOLUTE COUNT (BEAKER) (test pxfw=444) 0.34 K/ L 0.04-0.54 BASOPHILS ABSOLUTE COUNT (BEAKER) (test fsbu=752) 0.07 K/ L 0.01-0.08 IMMATURE GRANULOCYTES-RELATIVE PERCENT (BEAKER) (test wegt=5491) 1 % 0-1 CT, BRAIN, WITHOUT [id number] 13:57:00Reason for exam:->DIZZINESSWhat is the patient's sedation requirement?->No SedationFINAL REPORT CT head without contrast INDICATION: Acute headache, dizziness TECHNIQUE: Axial noncontrast CT images through the head were obtained. This exam was performed according to our departmental dose optimization program which includes automated exposure control, adjustment of the mA and/or kV according to patient size and/or use of iterative reconstruction technique. COMPARISON: CT head 11/30/2013 FINDINGS:There is no acute intracranial hemorrhage or mass effect. Microvascular ischemic changes appear slightly progressed since the prior study but are chronic appearing. Please note that CT is insensitive for early or small infarcts. Generalized volume loss and vascular calcifications are noted. There is no hydrocephalus or midline shift. The visualized sinuses, m astoid air cells, and orbits are unremarkable. The calvarium is intact. IMPRESSI ON: No acute intracranial hemorrhage or mass effect. Chronic appearing microvasc ular and involutional changes. If there is persistent concern for acute abnormal ity, MRI is advised. Signed: Elsa Aguilar Verified Date/Time: 04/27/2017 13:57:29 Reading Location: [facility] C013V Neuro Reading Room Electron ically signed by: ELSA AGUILAR M.D. on 04/27/2017 01:57 PM RAD, CHEST, 1 VIEW, NON [id number] 13:42:00Reason for exam:->coughShould this be performed at the bedside?->YesFINAL REPORT CLINICAL HISTORY: cough TECHNIQUE: 1 view of the chest. COMPARISON: 10/16/2015 IMPRESSION: The right central line has been removed. Mild elevation of the right hemidiaphragm is again seen. Right apical chain sutures are again seen. There are no focal infiltrates or significant appearing effusions. The cardiomediastinal silhouette is magnified by technique with sternotomy wires. Signed: Art Holliday Verified Date/Time: 04/27/2017 13:42:47 Reading Location: [facility] C013W Consult Reading Room
[2019-03-08] MEDS ORDERED: MORPHINE SULFATE 2 MG/ML SYR 1ML IV STA ×2 (12:41→13:07)
[2019-03-08] MEDS ORDERED: MORPHINE SULFATE INJ 4 MG/ML INJ 1ML ONE (12:44)
[2019-03-08 13:06] LABS: BASOPHILS # (AUTO) 0.1 (0.0-0.1); BASOPHILS % 0.6 % (0.0-1.0); EOSINOPHILS # (AUTO) 0.2 (0.0-0.4); EOSINOPHILS % 2.7 % (0.0-6.0); HEMATOCRIT 34.8 % (38.2-49.6); HEMOGLOBIN 11.4 g/dL (14.0-18.0); LYMPHOCYTES # (AUTO) 2.1 (1.0-3.2); LYMPHOCYTES % 25.1 % (18.0-39.1); MEAN CORPUSCULAR HEMOGLOBIN 28.9 pg (28-32); MEAN CORPUSCULAR HGB CONC 32.8 g/dL (31-35); MEAN CORPUSCULAR VOLUME 88.1 fL (81-99); MONOCYTES # (AUTO) 0.7 (0.2-0.8); MONOCYTES % 7.8 % (4.4-11.3); NEUTROPHILS # (AUTO) 5.3 (2.1-6.9); NEUTROPHILS % 63.2 % (38.7-80.0); PLATELET COUNT 254 x10e3/uL (140-360); RED BLOOD COUNT 3.95 x10e6/uL (4.3-5.7); RED CELL DISTRIBUTION WIDTH 14.9 % (11.7-14.4)
[2019-03-08] MEDS ORDERED: HYDROMORPHONE 1MG/1ML INJ IV STA (13:07)
--- NOTE | 2019-03-08 13:13 | Diagnostic Imaging Report ---
EXAMINATION: CHEST SINGLE (PORTABLE) INDICATION: Syncope COMPARISON: None FINDINGS: LINES/TUBES:EKG leads overlie the chest. LUNGS:The right lung is moderately inflated. There are postoperative findings of prior wedge resection at the right upper lung. Patchy opacity at the right lung base. The left lung is well inflated. No focal consolidation or pulmonary edema. PLEURA:No pleural effusion or pneumothorax. MEDIASTINUM:The cardiomediastinal silhouette appears normal in size and shape. Atherosclerotic calcifications of the thoracic aorta. Postoperative findings of prior CABG. BONES/SOFT TISSUES:No acute osseous injury. Sternotomy wires in place. ABDOMEN:No free air under the diaphragm. IMPRESSION: Patchy opacity at the right lung base, likely subsegmental atelectasis. Signed by: Yolanda Ward MD on 03/08/2019 1:10 PM
[2019-03-08 13:29] LABS: ALANINE AMINOTRANSFERASE 10 IU/L (0-55); ALBUMIN 3.4 g/dL (3.5-5.0); ALKALINE PHOSPHATASE 74 IU/L (40-150); ANION GAP 13.8 mmol/L (8-16); BLOOD UREA NITROGEN 13 mg/dL (7-26); BUN/CREATININE RATIO 16 (6-25); CALCIUM 9.1 mg/dL (8.4-10.2); CARBON DIOXIDE 25 mmol/L (22-29); CHLORIDE 100 mmol/L (98-107); CREATINE KINASE 58 IU/L (30-200); EST GLOMERULAR FILTRATION RATE > 60 ML/MIN (60-); GLUCOSE 113 mg/dL (74-118); POTASSIUM 3.8 mmol/L (3.5-5.1); SODIUM 135 mmol/L (136-145)
[2019-03-08 13:33] LABS: INR 0.85; PARTIAL THROMBOPLASTIN TIME 20.1 seconds (23.8-35.5); PROTHROMBIN TIME 12.1 seconds (11.9-14.5)
[2019-03-08] MEDS ORDERED: MORPHINE SULFATE 2 MG/ML SYR 1ML IV PRN (14:00)
--- NOTE | 2019-03-08 14:15 | Diagnostic Imaging Report ---
Examination: CT head without contrast Clinical Indication: Syncope. Technique: Transaxial noncontrast images from the skull base through the vertex were obtained. Sagittal and coronal reformatted images were done. Dose modulation, iterative reconstruction, and/or weight based adjustment of the mA/kV was utilized to reduce the radiation dose to as low as reasonably achievable. Comparison: None. Findings: Scalp: No abnormalities. Bones: Intact. No fractures. No blastic or lytic lesions. Brain sulci: Appropriate for patient's age. Ventricles: Normal in size and configuration. No hydrocephalus. . Extra-axial space: No abnormalities. Parenchyma: There are confluent areas of low-attenuation within subcortical and periventricular white matter, nonspecific, but could represent microvascular ischemic disease. No masses, hemorrhage, or acute or chronic cortical based vascular insults. Suprasellar region: No abnormalities. Craniocervical junction: The foramen magnum is patent. No Chiari one malformation. Incidental findings: Atherosclerotic calcification of the cavernous and supraclinoid internal carotid and V4 segments of the bilateral vertebral arteries. Impression: 1. No acute intracranial finding. 2. Mild chronic microvascular ischemic change. Signed by: Dr. Margie Regalado M.D. on 03/08/2019 2:11 PM
[2019-03-08] MEDS ORDERED: SODIUM CHLORIDE 0.9% 1000ML 1,000 ML IV SCH (14:40)
[2019-03-08] MEDS ORDERED: ONDANSETRON HCL INJ 2MG/ML 2ML 2 MG/ML VIAL IV PRN (14:45)
[2019-03-08] MEDS ORDERED: ASPIRIN 81 MG CHEW TAB PO ONE (15:00)
--- NOTE | 2019-03-08 15:15 | Diagnostic Imaging Report ---
EXAMINATION: PELVIS AP 1-2 VIEWS INDICATION: Trauma COMPARISON: None FINDINGS: AP view of the pelvis demonstrates no acute fracture or dislocation. Alignment is anatomic. Postoperative findings of lumbosacral spinal fusion with associated lower lumbar spine degenerative changes. Mild degenerative changes of both hip joints. Diffuse atherosclerotic arterial calcifications. Phleboliths in the pelvis. Nonobstructive bowel gas pattern. IMPRESSION: No acute osseous injury. Postoperative and degenerative findings of the lower lumbar spine. Mild degenerative changes of both hip joints. Signed by: Yolanda Ward MD on 03/08/2019 3:12 PM
--- NOTE | 2019-03-08 15:18 | Diagnostic Imaging Report ---
EXAMINATION: SP LUMBAR, COMPLETE MIN 4VW INDICATION: Trauma COMPARISON: None FINDINGS: AP, lateral, and oblique images of the lumbar spine demonstrate no acute compression fracture. Vertebral body heights are essentially maintained. Postoperative findings of posterior decompression and lumbosacral fusion at L4-S1. Multilevel degenerative changes of the visualized spine. Nonobstructive bowel gas pattern. No free air. IMPRESSION: Postoperative and degenerative changes of the lumbar spine. No acute osseous injury. Signed by: Yolanda Ward MD on 03/08/2019 3:14 PM
[2019-03-08] MEDS ORDERED: ASPIRIN 325 MG TAB PO NR (16:15)
[2019-03-08] MEDS ORDERED: ALBUTEROL/IPRATROPIUM 3 ML NEB NEB PRN (16:30)
[2019-03-08] MEDS ORDERED: DEXTROSE 50% SYRINGE 50 ML IV PRN (16:45)
[2019-03-08 17:00] VITALS: BP 144/92
[2019-03-08] MEDS: INSULIN LISPRO 100 UNIT/1 ML 3ML VIAL SQ SCH ×2 (17:00→21:01)
--- NOTE | 2019-03-08 17:00 | NUR ---
PATIENT RECEIVED FROM ER PER STRETCHER. ALERT AND VERBALLY RESPONSIVE. ASSISTED WITH TRANSFER TO BED. SKIN WARM AND DRY TO TOUCH. MULTIPLE SKIN TEARS TO BOTH ARMS WITH MAJOR ONES TO BOTH ELBOWS, WOUND TO LEFT HEEL WITH SOME DRYNESS AROUND IT. BOOT TO LEFT FOOT, PATIENT STATED THAT HE HAS A NON SURGICAL FRACTURE FROM A PAST FALL. RESPIRATION EVEN AND UNLABORED. ABDOMEN SOFT AND NON DISTENDED. PATIENT ORIENTED TO SURROUNDINGS. BED IN LOWER POSITION, CALL LIGHT AT REACH, INSTRUCTED TO CALL FOR ASSISTANCE NEEDED.
[2019-03-08 17:08] VITALS: BP 144/92
[2019-03-08] MEDS: LEVETIRACETAM 500 MG TAB PO SCH (18:44)
[2019-03-08 19:30] VITALS: BP_SYST 137; BP_SYST 145; BP_DIAS 63; BP_DIAS 81
--- NOTE | 2019-03-08 19:30 | NUR ---
RECEIVED REPORT FROM DAY SHIFT NURSE. PT IS IN BED A/A/OX3 AND DENIES ANY PAIN AT THIS TIME. PT RESPONDS APPROPRIATELY RO QUESTIONS. RESPIRATION UNLABORED, +BOWEL SOUNDS, PT USES URINAL AND IS CONTINENT FOR BOWEL AND BLADDER. PT HAS A 20G LFA SL AND IS PATENT, TELE #3 AND RHYTHM IS SINUS. BILATERAL ARM AND ELBOW SKIN TEARS NOTED. PT HAS A BOOT ON LEFT FOOT FOR A NON SURGICAL FRACTURE. LEFT HEEL HAS A SMALL WOUND WITHOUT DRAINAGE AND OPEN TO AIR. WILL CONTINUE TO MONITOR.
[2019-03-08 20:00] VITALS: BP 145/81
--- NOTE | 2019-03-08 21:00 | NUR ---
PT BS IS 286 AND HE IS GIVEN 6 UNITS OF INSULIN PER SLIDING SCALE. PT ALSO C/O GENERALIZED PAIN 10/10 AND IS GIVEN MORPHINE 2MG PER ORDER. WILL REASSESS FOR MEDICATION EFFECTIVENESS.
[2019-03-08 21:16] LABS: CREATINE KINASE 51 IU/L (30-200)
[2019-03-08] MEDS ORDERED: MORPHINE SULFATE INJ 4 MG/ML INJ 1ML IV PRN (22:45)
--- NOTE | 2019-03-09 01:39 | Consultation ---
DATE OF CONSULTATION: 03/08/2019 Cardiology Consultation. REASON FOR CONSULTATION: Syncope. HISTORY OF PRESENT ILLNESS: Mr. Meyers is a 73-year-old gentleman, who is a very poor historian, but has multiple comorbidities including hypertension, hypercholesteremia, COPD, active smoker, coronary artery disease with prior history of three-vessel CABG in early , seizure disorder, PAD with nonhealing ulceration of the left heel, recently diagnosed left leg fracture from a mechanical fall, history of frequent falls, BPH, urinary retention with history of urinary tract infections. 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 The patient was recently discharged about two days ago from [facility] with unclear details of this hospitalization. However, he completed a course of antibiotics for UTI sepsis. He was at home and reports that he was ambulating from his bedroom to his kitchen and essentially had a mechanical fall, which was witnessed by daughter in the room. He stumbled, ended up landing backwards on his tailbone, hitting his upper back and bruising his right elbow. At that time, there definitely was not any loss of consciousness and the patient admits to this and again was witnessed by daughter. He was then taken to his primary care doctor and while waiting in a wheelchair, he felt very flushed, became warm all over and was nauseated and at that time, the eyes rolled at the back of his head and lost consciousness. He was then quickly taken inside where he slowly came back to and there he was noted to be stable with blood pressure of 70s over 50s. The EMS was called for transfer to this hospital and hence, this is why he came here. Since being here, he has had no further episodes. He denies any subjective palpitations. I had long discussion with the patient and family in terms of differential diagnoses as well as we educate him on the possibility of hypotension resulting in his passing-out spell. Upon long discussion with family a more conservative approach is desired by them, which is not unreasonable. PAST MEDICAL HISTORY: 1. Hypertension. 2. Hypercholesterolemia. 3. COPD/smoker. 4. History of lung cancer status post right lower lobe lobectomy. 5. Coronary artery disease with prior history of CABG in the early , three- vessel. 6. History of seizures. 7. Peripheral artery disease. 8. History of severe DJD/spinal disease. 9. Frequent episodes of mechanical fall. 10. BPH, urinary retention. 11. History of urinary tract infections. PAST SURGICAL HISTORY: 1. History of CABG. 2. History of right lower lobe resection for lung cancer. FAMILY HISTORY: Mother in her 60s of lung cancer. Father had in his 50s of leukemia. SOCIAL HISTORY: He is and lives with family. He is a one-pack per day smoker. Denies any alcohol or illicit drug use. ALLERGIES: NO KNOWN DRUG ALLERGIES. HOME MEDICATIONS: See electronic medical record. REVIEW OF SYSTEMS: GENERAL: Denies any current fevers, chills. No weight changes. HEENT: Occasional headaches. No visual complaints. No sore throat or stuffy nose. CARDIOVASCULAR: As per HPI. GI: Denies any abdominal pain, bright red blood per rectum, melena, hematemesis, nausea, or vomiting. : Positive for urinary frequency, pyuria, dysuria, and nocturia. MUSCULOSKELETAL: Positive for severe arthritis and chronic pains of his back as well as his left leg, which is casted and his right arm where he has an abrasion on his right elbow. ID: No known infectious issues. ENDOCRINE: Denies any heat or cold intolerance. NEUROLOGIC: Syncope as per HPI and remote history of seizures. PSYCH: Abnormal insight. Normal mood. PHYSICAL EXAMINATION: VITAL SIGNS: Temperature 97.9, blood pressure 137/66, pulse of 84, respiratory rate 16. GENERAL: This is a disheveled, elderly gentleman, who appears older than stated age, currently in no apparent distress. HEENT: Normocephalic and atraumatic. Extraocular movements are intact. Pupils are equal, round, and reactive to light. Oropharynx is clear with poor dentition. NECK: There is faint bilateral carotid bruits. No jugular venous distention. CARDIOVASCULAR: Regular rate and rhythm. Normal S1, S2. 2/6 systolic ejection murmur at the right upper sternal border. LUNGS: Positive for sternotomy. There is poor air flow throughout lung damon and diminished air entry compatible with advanced COPD type changes with the right old thoracotomy scar. BACK: DJD. EXTREMITIES: Right elbow with abrasion and left leg is with the unna boot. There is 1 to 2+ bilateral radial pulses, 1+ femoral pulses and absent pedal pulses. NEUROLOGIC: Cranial nerves II through XII are intact. Difficult to assess for strength on account of extremity pain. LABORATORY DATA: CBC reveals a white count 8, hemoglobin 11, and platelets of 254. INR is normal. Sodium 135, BUN 13, creatinine 0.8, glucose of 113. Troponin is 0.001. Head CT is unremarkable. Chest x-ray reveals old COPD type changes. EKG reveals normal sinus rhythm, incomplete right bundle-branch block, no signs of ischemia. DIAGNOSES: 1. Syncope, by history, this is related to hypotension and believed to be situational vasovagal syncope on due to pain from his mechanical fall. 2. History of repeated falls and had a mechanical fall due to ambulation difficulties from his recent left leg fracture where he is in an Rekha boot. 3. Hypercholesterolemia. 4. Chronic obstructive pulmonary disease. 5. Remote history of lung cancer. PLAN/RECOMMENDATIONS: 1. From a cardiovascular standpoint, I believe the treatment should be supportive. 2. We will check carotid duplex. 3. We will check echocardiogram to evaluate his heart structurally. 4. We will monitor on telemetry. 5. We will follow up on any repeat enzymes, however, this is not compatible with acute coronary syndrome. 6. Of note, the patient only needs to continue antibiotic therapy for recently diagnosed UTI. Thank you for this referral. We will continue to monitor. MD DESTINI Britt/CHARITY /[id number] ADIEL
[2019-03-09] MEDS: MORPHINE SULFATE INJ 4 MG/ML INJ 1ML IV PRN ×3 (03:17→11:36)
[2019-03-09 04:00] VITALS: BP 142/79
[2019-03-09 05:52] LABS: BASOPHILS % 0.5 % (0.0-1.0); EOSINOPHILS # (AUTO) 0.3 (0.0-0.4); EOSINOPHILS % 3.4 % (0.0-6.0); HEMATOCRIT 32.8 % (38.2-49.6); HEMOGLOBIN 10.8 g/dL (14.0-18.0); LYMPHOCYTES # (AUTO) 2.2 (1.0-3.2); LYMPHOCYTES % 29.2 % (18.0-39.1); MEAN CORPUSCULAR HGB CONC 32.9 g/dL (31-35); MEAN CORPUSCULAR VOLUME 87.9 fL (81-99); MONOCYTES # (AUTO) 0.6 (0.2-0.8); MONOCYTES % 7.7 % (4.4-11.3); NEUTROPHILS # (AUTO) 4.5 (2.1-6.9); NEUTROPHILS % 58.9 % (38.7-80.0); PLATELET COUNT 227 x10e3/uL (140-360); RED BLOOD COUNT 3.73 x10e6/uL (4.3-5.7)
[2019-03-09 06:09] LABS: ALANINE AMINOTRANSFERASE 9 IU/L (0-55); ALBUMIN 3.2 g/dL (3.5-5.0); ALKALINE PHOSPHATASE 68 IU/L (40-150); ANION GAP 11.1 mmol/L (8-16); BLOOD UREA NITROGEN 12 mg/dL (7-26); BUN/CREATININE RATIO 17 (6-25); CALCIUM 9.1 mg/dL (8.4-10.2); CARBON DIOXIDE 29 mmol/L (22-29); CHLORIDE 100 mmol/L (98-107); CREATININE, SERUM 0.71 mg/dL (0.72-1.25); EST GLOMERULAR FILTRATION RATE > 60 ML/MIN (60-); GLUCOSE 104 mg/dL (74-118); POTASSIUM 4.1 mmol/L (3.5-5.1); SODIUM 136 mmol/L (136-145)
[2019-03-09 06:42] LABS: CREATINE KINASE MB 3.3 ng/mL (0-5.0)
--- NOTE | 2019-03-09 07:13 | NUR ---
PATIENT IN BED RESTING WITH HEAD OF BED ELEVATED. REQUESTED AND RECEIVED A CUP OF COFFEE. BOOT INTACT TO LEFT FOOT. TELEMETRY BOX IN PLACE. BED IN LOWER POSITION, CALL LIGHT AT REACH.
[2019-03-09 07:22] LABS: BILIRUBIN,URINE NEGATIVE (NEGATIVE); CLARITY,URINE CLEAR (CLEAR); COLOR,URINE YELLOW (YELLOW); KETONES,URINE NEGATIVE (NEGATIVE); LEUKOCYTE ESTERASE ,URINE NEGATIVE (NEGATIVE); NITRITE,URINE NEGATIVE (NEGATIVE); PROTEIN,URINE DIPSTICK NEGATIVE (NEGATIVE); URINE UROBILINOGEN 0.2 mg/dL (0.2 - 1)
[2019-03-09] MEDS: INSULIN LISPRO 100 UNIT/1 ML 3ML VIAL SQ SCH ×2 (07:30→11:30)
[2019-03-09 07:33] LABS: BACTERIA,URINE RARE /HPF; EPITHELIAL CELLS,URINE FEW /LPF; RBC,URINE 0-5 /HPF (0-5)
[2019-03-09 07:35] VITALS: BP 134/65
[2019-03-09 08:00] VITALS: BP 134/65
[2019-03-09] MEDS ORDERED: ASPIRIN 325 MG TAB PO SCH (09:00)
[2019-03-09] MEDS: LEVETIRACETAM 500 MG TAB PO SCH (09:44)
--- NOTE | 2019-03-09 10:20 | NUR ---
spoke with patient about snf order, he is alert and oriented x 3 able to give history of what and how he got here. has home health with [facility], states does not want to go to a long term
--- NOTE | 2019-03-09 11:46 | NUR ---
PATIENT OF GENERALIZED PAIN, MEDICATED ORDERED. ECHOCARDIOGRAM IN PROGRESS AT BED SIDE. CALL LIGHT AT REACH.
[2019-03-09 12:00] VITALS: BP 157/74
--- NOTE | 2019-03-09 14:50 | NUR ---
PATIENT DISCHARGED HOME. DISCHARGE INSTRUCTIONS, AND FOLLOW UP GIVEN TO PATIENT AND , THEY VERBALIZED UNDERSTANDING. IV TO LEFT FOREARM REMOVED WITH TIP INTACT. ALL PERSONAL ITEMS TAKEN WITH PATIENT. LEFT UNIT PER WHEEL CHAIR TO FRONT LOBBY.
--- NOTE | 2019-03-10 04:35 | Discharge Summary ---
PRIMARY CARE DOCTOR: Dr. Darnell Vivar. FINAL DIAGNOSIS: Syncope, likely due to vasovagal. SECONDARY DIAGNOSES: 1. Carotid stenosis. 2. Coronary artery disease. 3. Chronic obstructive pulmonary disease. 4. Diabetes. MUSIC JOURNALIST: Dr. Jean Baptiste, Cardiology. PROCEDURES/STUDIES PERFORMED: 1. Echocardiogram. 2. Carotid ultrasound. HISTORY: Per H and P. HOSPITAL COURSE: The patient was monitored overnight. No arrhythmia noted. Echo showed EF of 40%. Carotid ultrasound shows stenosis about 50% to 70% bilaterally. His UTI has been treated. Urinalysis here is negative. The patient was evaluated by Physical Therapy. He ambulated 200 feet. The patient can go home with home health. The patient was seen and examined today. CONDITION ON DISCHARGE: Improved. DISCHARGE MEDICATIONS: Please see medication reconciliation form. MD JONNATHAN Ricardo/CHARITY /[id number] cc: [facility]
== END 2019-03-09 14:51 | disposition home or self-care (01) ==
LOC: ER 12:09 → ERHOLD 15:09 → MED/SURG3 16:45
PROVIDERS: ADMIT Internal Medicine; ATTEND Internal Medicine
DX: R55 Syncope and collapse (principal); J44.9 Chronic obstructive pulmonary disease, unspecified; I10 Essential (primary) hypertension; E78.00 Pure hypercholesterolemia, unspecified; F17.200 Nicotine dependence, unspecified, uncomplicated; I25.10 Atherosclerotic heart disease of native coronary artery without angina pectoris; Z95.1 Presence of aortocoronary bypass graft; G40.909 Epilepsy, unspecified, not intractable, without status epilepticus; I73.9 Peripheral vascular disease, unspecified; N40.1 Benign prostatic hyperplasia with lower urinary tract symptoms; R33.8 Other retention of urine; Z85.118 Personal history of other malignant neoplasm of bronchus and lung; Z90.2 Acquired absence of lung [part of]; R29.6 Repeated falls; I45.10 Unspecified right bundle-branch block; I65.29 Occlusion and stenosis of unspecified carotid artery; E11.40 Type 2 diabetes mellitus with diabetic neuropathy, unspecified; Z79.4 Long term (current) use of insulin
CPT/HCPCS: 36415 ×2; 70450; 71045; 72110; 72170; 80053 ×2; 81001; 82550 ×2; 82553 ×2; 82948 ×2; 83880; 84484 ×2; 85025 ×2; 85610; 85730; 93005; 93306; 93880; 97116; 97161; 99285; G0378 ×2; J1170; J2270 ×3

== ENCOUNTER 2019-09-12 17:56 | Inpatient (IN) | payer MEDICARE, OTHER ==
[~2019-09-12] VITALS: Ht 177.8 cm; Wt 83.9 kg
--- OUTSIDE RECORDS SUMMARY | 2019-09-12 17:59 | XMS REPORT | Clinical Summary ---
Author Author [facility] Organization [facility] Address Unknown Phone Unavailable Care Team Providers Care Booking Supervisor Name Role Phone PCP Unavailable Allergies Comments Active Allergy Reactions Severity Noted Date Levofloxacin Rash Low 11/20/2017 Medications End Date Status Medication Sig Dispensed Refills Start Date Active escitalopram oxalate Take 20 mg by 0 (LEXAPRO) 20 mg tablet mouth daily. Active NIFEDIPINE CR 30 mg 24 hr Take 30 mg by 0 delayed released tablet mouth daily. Active metFORMIN (GLUCOPHAGE) Take 1,000 mg 0 1,000 mg tablet by mouth 2 times daily (with meals). Active glimepiride (AMARYL) 4 mg Take 4 mg by 0 tablet mouth every morning (before breakfast). Active ALPRAZolam (XANAX) 0.25 Take 0.25 mg 0 mg tablet by mouth nightly at bedtime as needed for Sleep. Active tamsulosin (FLOMAX) 0.4 Take 0.4 mg 0 mg extended release by mouth capsule daily. Active Donepezil 10 mg Take 10 mg by 0 disintegrating tablet mouth at bedtime nightly. Active metoprolol succinate Take 50 mg by 0 (TOPROL XL) 50 mg mouth daily. extended release tablet Active lisinopril (PRINIVIL, Take 2.5 mg 0 ZESTRIL) 2.5 mg tablet by mouth daily. Active aspirin (ASPIRIN) 81 mg Chew and 60 tablet 2 chewable swallow 1 8 tabletIndications: tablet by Coronary artery disease mouth daily. involving coronary bypass graft of [place] heart, angina presence unspecified Active atorvastatin (LIPITOR) 40 Take 1 tablet 60 tablet 2 11/23/201 mg tabletIndications: by mouth at 8 Coronary artery disease bedtime involving coronary bypass nightly. graft of [place] heart, angina presence unspecified Active nicotine (NICODERM CQ) 14 Apply 1 Patch 30 Patch 2 mg/24 hr to skin as 8 patchIndications: Smoking directed daily. Active albuterol (PROVENTIL) 2.5 Inhale 2.5 mg 0 /2 /201 mg /3 mL (0.083 %) by mouth. 9 nebulizer solution Active finasteride (PROSCAR) 5 TAKE ONE 0 10/18/ 201 mg tablet TABLET BY 9 MOUTH EVERY DAY Active gabapentin (NEURONTIN) Take 600 mg 0 01 600 mg tablet by mouth. 9 Active HYDROcodone-acetaminophen TAKE ONE 0 / (NORCO) 10-325 mg tablet TABLET BY 9 MOUTH EVERY 4 HOURS NEEDED FOR PAIN Active ipratropium (ATROVENT Inhale 2 0 05/11/19 1 HFA) 17 mcg/actuation Puffs by 8 inhaler mouth. 01/26/2019 Discontinued (Patient Discha rge) SPIRONOLACTONE OR Take 50 mg by 0 mouth. 01/26/2019 Discontinued (Patient Discha rge) pantoprazole (PROTONIX) Take 40 mg by 0 40 mg delayed release mouth daily. tablet 01/26/2019 Discontinued (Patient Discha rge) baclofen (LIORESAL) 10 mg Take 10 mg by 0 tablet mouth 3 times daily. 01/26/2019 Discontinued (Patient Discha rge) HYDROmorphone (DILAUDID) Take 4 mg by 0 4 mg tablet mouth every 6 hours as needed for Pain. 01/26/2019 Discontinued (Patient Discha rge) nitroGLYCERIN (NITROSTAT) Place 0.4 mg 0 0.4 mg sublingual tablet under tongue every 5 minutes as needed for Chest pain Dissolve 1 tablet under the tongue every 5 minutes as needed, up to 3 times. If chest pain persists, call 911 . 01/22/2019 Discontinued (Side effects) ondansetron (ZOFRAN-ODT) Take 4 mg by 0 4 mg disintegrating mouth every 8 tablet hours as needed for Nausea. 01/26/2019 Discontinued (Patient Discha rge) hydrALAZINE (APRESOLINE) Take 50 mg by 0 50 mg tablet mouth 3 times daily. 01/26/2019 Discontinued (Patient Discha rge) traZODone (DESYREL) 100 Take 100 mg 0 mg tablet by mouth 2 times daily. 01/26/2019 Discontinued (Patient Discha rge) citalopram (CELEXA) 10 mg Take 20 mg by 0 / tablet mouth. 9 01/26/2019 Discontinued (Patient Discha rge) clopidogrel (PLAVIX) 75 Take 75 mg by 0 mg tablet mouth. 01/26/2019 Discontinued (Patient Discha rge) diltiazem (CARDIZEM) 120 Take 120 mg 0 mg tablet by mouth. 01/26/2019 Discontinued (Patient Discha rge) fenofibrate (LOFIBRA) 160 TAKE 1 TABLET 0 10/01 2/201 mg tablet BY MOUTH 3 EVERY DAY IN THE MORNING 01/26/2019 Discontinued (Patient Discha rge) Levetiracetam (KEPPRA) Take 1,000 mg 0 1,000 mg tablet by mouth. 01/26/2019 Discontinued (Patient Discha rge) rOPINIRole (REQUIP) 2 mg Take 2 mg by 0 07/15 tablet mouth. 9 01/26/2019 Discontinued amoxicillin-clavulanate Take 1 tablet 3 tablet 0 (AUGMENTIN) 875-125 mg by mouth 2 9 per tabletIndications: times daily COPD exacerbation, for 3 doses. Aspiration pneumonia of right lung due to vomit, unspecified part of lung 01/28/2019 amoxicillin-clavulanate Take 1 tablet 3 tablet 0 (AUGMENTIN) 875-125 mg by mouth 2 9 per tabletIndications: times daily COPD exacerbation, for 3 doses. Aspiration pneumonia of right lung due to vomit, unspecified part of lung 02/05/2019 Discontinued (Reorder) cefpodoxime (VANTIN) 200 Take 1 tablet 20 tablet 0 mg tabletIndications: by mouth 2 9 Acute cystitis without times daily hematuria for 10 days. 02/10/2019 Discontinued (Alternate ther apy) cefpodoxime (VANTIN) 200 Take 1 tablet 20 tablet 0 mg tabletIndications: by mouth 2 9 Acute cystitis without times daily hematuria for 10 days. 02/10/2019 Discontinued (Dose adjustmen t) sulfamethoxazole-trimetho Take 1 tablet 20 tablet 0 prim (BACTRIM DS) 800-160 by mouth 2 9 mg per tabletIndications: times daily UTI due to for 10 days. extended-spectrum beta lactamase (ESBL) producing Escherichia coli 02/10/2019 Discontinued (Reorder) sulfamethoxazole-trimetho Take 1 tablet 26 tablet 0 prim (BACTRIM DS) 800-160 by mouth 2 9 mg per tabletIndications: times daily UTI due to for 13 days. extended-spectrum beta lactamase (ESBL) producing Escherichia coli 02/23/2019 sulfamethoxazole-trimetho Take 1 tablet 26 tablet 0 prim (BACTRIM DS) 800-160 by mouth 2 9 mg per tabletIndications: times daily UTI due to for 13 days. extended-spectrum beta lactamase (ESBL) producing Escherichia coli Active Problems Problem Noted Date Pyelonephritis 02/10/2019 UTI (urinary tract infection) 02/08/2019 AMS (altered mental status) 02/08/2019 Chronic pain 01/23/2019 Skin ulcer of left ankle, limited to breakdown of ski n 01/23/2019 Benzodiazepine dependence 01/23/2019 Opiate dependence 01/23/2019 HTN (hypertension) 01/23/2019 Atrial fibrillation 01/23/2019 Alzheimer's dementia 01/23/2019 Type 2 diabetes mellitus 01/23/2019 Disorientation 11/20/2017 Endotracheally intubated 11/20/2017 Acute hypercapnic respiratory failure 11/20/2017 History of lung cancer 11/20/2017 CAD (coronary artery disease) 11/20/2017 Smoking 11/20/2017 Opioid use, unspecified, uncomplicated Resolved Problems Problem Noted Date Resolved Date Aspiration pneumonia 11/23/2017 01/26/2019 Altered mental state 11/20/2017 01/26/2019 COPD exacerbation 11/20/2017 01/26/2019 Hypoxia 01/26/2019 Encounters Care Team Description Date Type Specialty Austyn Sher MD Fadial, Tom, MD Puravath, Abin, MD Sepsis, due to unspecified organism, uns pecified whether acute organ dysfunction present (Primary Dx); ESBL (extended spectrum beta-lactamase) producing bacteria infection; UTI due to extended-spectrum beta lactamase (ESBL) producing Escherichia coli; Pyelonephritis 02/08/2019 Hospital - Encounter 02/10/2019 Yulissa Hoskins, RN 02/08/2019 Nurse Triage Clotilde Slater MD Disorientation (Primary Dx); Acute cystitis without hematuria; UTI due to extended-spectrum beta lactamase (ESBL) producing Escherichia coli 02/05/2019 Emergency Emergency Medicine Varinder Slater LMSW 01/31/2019 Clinical Case Mgt Varinder Slater, [facility] 01/30/2019 Clinical Case Herbert Tay MD Calhoun, Aletha Ma MD Hypoxia (Primary Dx); Pneumonia due to Haemophilus influenzae, unspecified laterality, unspecified part of lung; Left ankle pain, unspecified chronicity; Pneumonia of right lung due to infectious organism, unspecified part of lung; Oropharyngeal dysphagia; COPD exacerbation; Aspiration pneumonia of right lung due to vomit, unspecified part of lung; Skin ulcer of left ankle, limited to breakdown of skin; Benzodiazepine dependence; Opioid dependence with withdrawal; Essential hypertension; Paroxysmal atrial fibrillation; Alzheimer's dementia with behavioral disturbance, unspecified timing of dementia onset; Type 2 diabetes mellitus with hyperglycemia, without long-term current use of insulin; Coronary artery disease involving coronary bypass graft of [place] heart, angina presence unspecified 01/21/2019 Hospital - Encounter 01/26/2019 after 09/11/2018 Family History Medical History Relation Name Comments Leukemia Father Lung cancer Mother Cataracts Sister Relation Name Status Comments Father Mother Sister Social History Date Tobacco Use Types Packs/Day Years Used Current Every Day Smoker Cigarettes 0.25 40 Smokeless Tobacco: Never Used Comments: have being smoking for 40 year s Drinks/Week oz/Week Comments Alcohol Use Not Currently Sex Assigned at Date Recorded Not on file Industry Job Start Date Occupation Not on file Not on file Not on file Travel End Travel History Travel Start No recent travel history available. Last Filed Vital Signs Reading Time Taken Comments Vital Sign 136/64 02/10/2019 7:42 AM CDT Blood Pressure 73 02/10/2019 7:42 AM CDT Pulse 36.4 C (97.6 F) 02/10/2019 7:42 AM CDT Temperature 20 02/10/2019 7:42 AM CDT Respiratory Rate 95% 02/10/2019 7:47 AM CDT Oxygen Saturation - - Inhaled Oxygen Concentration 71.8 kg (158 lb 6.4 oz) 02/09/2019 5:42 AM CDT Weight 177.8 cm (5' 10") 02/09/2019 5:42 AM CDT Height 22.73 02/09/2019 5:42 AM CDT Body Mass Index Plan of Treatment Health Maintenance Due Date Last Done Comments DM Foot Exam (Yearly) 1963 DM Retinal Exam (Yearly) 1963 Colorectal Cancer Scrn 1995 Annual (FIT/FOBT) Age 50 to 75 IMM Pneumococcal Age 65 2010 and Up CORONARY ARTERY DISEASE 11/20/2018 11/20/2017, , 12/24/2004, AGE 18 AND UP Additional history exists DM HGBA1C (Yearly) 01/23/2020 01/22/2019, 018, 08/27/2004, Additional history exists IMM Influenza Seasonal 02/01/2020Jan to July (>/= 19 yrs) Procedures Comments Procedure Name Priority Date/Time Associated Diag nosis GLUCOSE POC Routine 02/10/2019 7:46 AM CDT CBC Routine 02/10/2019 3:37 AM CDT PHOSPHORUS Routine 02/10/2019 3:37 AM CDT CALCIUM, IONIZED Routine 02/10/2019 3:37 AM CDT MAGNESIUM Routine 02/10/2019 3:37 AM CDT COMPREHENSIVE METABOLIC Routine 02/10/2019 PANEL 3:37 AM CDT CBC/DIFF Routine 02/10/2019 3:37 AM CDT GLUCOSE POC Routine 02/09/2019 8:29 PM CDT GLUCOSE POC Routine 02/09/2019 5:09 PM CDT GLUCOSE POC Routine 02/09/2019 12:54 PM CDT GLUCOSE POC Routine 02/09/2019 11:49 AM CDT BASIC METABOLIC PANEL Timed 02/09/2019 8:55 AM CDT PHOSPHORUS Routine 02/09/2019 8:55 AM CDT MAGNESIUM Routine 02/09/2019 8:55 AM CDT LIVER PROFILE Routine 02/09/2019 8:55 AM CDT GLUCOSE POC Routine 02/09/2019 8:53 AM CDT GLUCOSE POC Routine 02/09/2019 8:16 AM CDT GLUCOSE POC Routine 02/09/2019 5:36 AM CDT URINE CULTURE Routine 02/09/2019 5:34 AM CDT URINALYSIS STAT 02/09/2019 5:34 AM CDT URINALYSIS STAT 02/09/2019 5:34 AM CDT GLUCOSE POC Routine 02/09/2019 4:37 AM CDT IP CONSULT WITH INSIGHT Routine 02/09/2019 4:36 AM CDT DIFFERENTIAL, MANUAL-WAM Add-on 02/09/2019 3:29 AM CDT CBC Routine 02/09/2019 3:29 AM CDT CBC/DIFF Routine 02/09/2019 3:29 AM CDT CALCIUM, IONIZED Routine 02/09/2019 3:29 AM CDT GLUCOSE POC Routine 02/09/2019 2:58 AM CDT VBG POC Routine 02/09/2019 2:[address] ABDOMEN AND PELVIS STAT 02/09/2019 Sepsis, due to CONTRAST 1:17 AM CDT unspecified organis m, unspecified whether acute organ dysfunction present VBG POC Routine 02/08/2019 10:54 PM CDT XRAY CHEST 1 VIEW STAT 02/08/2019 Sepsis, due to 9:17 PM CDT unspecified organism, unspecified whether acute organ dysfunction present BLOOD CULTURE STAT 02/08/2019 8:41 PM CDT CBC STAT 02/08/2019 8:41 PM CDT PT/INR/PTT STAT 02/08/2019 8:41 PM CDT CBC/DIFF STAT 02/08/2019 8:41 PM CDT BLOOD CULTURE STAT 02/08/2019 8:40 PM CDT VBG POC Routine 02/08/2019 7:47 PM CDT TROPONIN I POC Routine 02/08/2019 7:45 PM CDT BMP POC Routine 02/08/2019 7:44 PM CDT URINE CULTURE STAT 02/05/2019 11:06 AM CDT URINE CULTURE Add-on 02/05/2019 10:46 AM CDT URINALYSIS STAT 02/05/2019 9:14 AM CDT URINALYSIS STAT 02/05/2019 9:14 AM CDT VBG POC Routine 02/05/2019 8:52 AM CDT BMP POC Routine 02/05/2019 8:52 AM CDT XRAY CHEST 1 VIEW STAT 02/05/2019 Disorientati on 8:50 AM CDT CBC STAT 02/05/2019 8:45 AM CDT CBC/DIFF STAT 02/05/2019 8:45 AM CDT GLUCOSE POC Routine 01/26/2019 8:08 AM CDT CBC Routine 01/26/2019 3:47 AM CDT BASIC METABOLIC PANEL Routine 01/26/2019 3:47 AM CDT CBC/DIFF Routine 01/26/2019 3:47 AM CDT GLUCOSE POC Routine 01/25/2019 4:48 PM CDT GLUCOSE POC Routine 01/25/2019 12:43 PM CDT GLUCOSE POC Routine 01/25/2019 8:31 AM CDT CBC Routine 01/25/2019 3:37 AM CDT CBC/DIFF Routine 01/25/2019 3:37 AM CDT MAGNESIUM Routine 01/25/2019 3:36 AM CDT BASIC METABOLIC PANEL Routine 01/25/2019 3:36 AM CDT NUTRITION CONSULT Routine 01/24/2019 ASSESSMENT 9:04 PM CDT GLUCOSE POC Routine 01/24/2019 8:47 PM CDT GLUCOSE POC Routine 01/24/2019 4:53 PM CDT GLUCOSE POC Routine 01/24/2019 11:51 AM CDT GLUCOSE POC Routine 01/24/2019 7:46 AM CDT CBC Routine 01/24/2019 5:19 AM CDT PHOSPHORUS Routine 01/24/2019 5:19 AM CDT MAGNESIUM Routine 01/24/2019 5:19 AM CDT CBC/DIFF Routine 01/24/2019 5:19 AM CDT CALCIUM, IONIZED Routine 01/24/2019 5:19 AM CDT BASIC METABOLIC PANEL Routine 01/24/2019 5:19 AM CDT GLUCOSE POC Routine 01/23/2019 9:19 PM CDT GLUCOSE POC Routine 01/23/2019 5:28 PM CDT IP CONSULT TO PHYSICAL Routine 01/23/2019 THERAPY 2:54 PM CDT GLUCOSE POC Routine 01/23/2019 12:09 PM CDT GLUCOSE POC Routine 01/23/2019 7:31 AM CDT CBC Routine 01/23/2019 4:20 AM CDT CBC/DIFF Routine 01/23/2019 4:20 AM CDT CALCIUM, IONIZED Routine 01/23/2019 4:20 AM CDT PHOSPHORUS Routine 01/23/2019 4:20 AM CDT MAGNESIUM Routine 01/23/2019 4:20 AM CDT BASIC METABOLIC PANEL Routine 01/23/2019 4:20 AM CDT GLUCOSE POC Routine 01/22/2019 8:51 PM CDT GLUCOSE POC Routine 01/22/2019 5:14 PM CDT GLUCOSE POC Routine 01/22/2019 12:13 PM CDT IP CONSULT TO SPEECH Routine 01/22/2019 LANGUAGE PATHOLOGY 9:48 AM CDT GLUCOSE POC Routine 01/22/2019 8:40 AM CDT PT/INR Routine 01/22/2019 4:12 AM CDT CBC Routine 01/22/2019 4:11 AM CDT HEMOGLOBIN A1C Routine 01/22/2019 4:11 AM CDT PHOSPHORUS Routine 01/22/2019 4:11 AM CDT MAGNESIUM Routine 01/22/2019 4:11 AM CDT BASIC METABOLIC PANEL Routine 01/22/2019 4:11 AM CDT CBC/DIFF Routine 01/22/2019 4:11 AM CDT XRAY CHEST 2 VIEWS Routine 01/21/2019 Pneumonia o f right lung 6:03 PM CDT due to infectious organism, unspecified part of lung BASIC METABOLIC PANEL Routine 01/21/2019 5:37 PM CDT IP CONSULT TO PHYSICAL Routine 01/21/2019 THERAPY 5:16 PM CDT XRAY ANKLE 3 VIEW MIN STAT 01/21/2019 Left ank le pain, 4:40 PM CDT unspecified chronicity XRAY FOOT 3 VIEWS MIN STAT 01/21/2019 Left ank le pain, 4:40 PM CDT unspecified chronicity VBG POC Routine 01/21/2019 3:25 PM CDT BLOOD CULTURE STAT 01/21/2019 1:14 PM CDT BLOOD CULTURE STAT 01/21/2019 1:14 PM CDT PURPLE TOP TUBE STAT 01/21/2019 1:14 PM CDT GOLD TOP TUBE STAT 01/21/2019 1:14 PM CDT GOLD TOP TUBE STAT 01/21/2019 1:14 PM CDT RAINBOW DRAW STAT 01/21/2019 1:14 PM CDT CBC STAT 01/21/2019 1:14 PM CDT CBC/DIFF STAT 01/21/2019 1:14 PM CDT XRAY CHEST 1 VIEW STAT 01/21/2019 Hypoxia 1:09 PM CDT VBG POC Routine 01/21/2019 12:54 PM CDT BMP POC Routine 01/21/2019 12:54 PM CDT 12 LEAD EKG Routine 01/21/2019 12:52 PM CDT TROPONIN I POC Routine 01/21/2019 12:52 PM CDT after 09/11/2018 Results * POCT GLUCOSE POC docked device (02/10/2019 7:46 AM CDT) Only the most recent of 26 results within the time period is included. Glucose POC 76 74 - 106 mg/dL [facility] Specimen Blood Performing Organization Address City/State/Zipcode Ph one Number [facility] [address] [place] [address] * CBC/Diff (02/10/2019 3:37 AM CDT) Only the most recent of 10 results within the time period is included. WBC 6.0 4.5 - 12.0 K/uL [facility] RBC 3.55 (L) 4.60 - 6.20 M/uL [facility] Hemoglobin 10.1 (L) 14.0 - 18.0 g/dL [facility] Hematocrit 31.1 (L) 40.0 - 54.0 % [facility] MCV 87.6 82.0 - 92.0 fL [facility] MCH 28.5 27.0 - 31.0 pg [facility] MCHC 32.5 32.0 - 36.0 g/dL [facility] RDW 45.7 (H) 35.1 - 43.9 fL [facility] Platelet 211 150 - 400 K/uL [facility] Mean Platelet 9.6 9.4 - 12.4 fL [facility] Volume Percent NRBC 0.0 % [facility] Neutrophil 63.0 34.0 - 67.9 % [facility] Lymphs 24.8 21.8 - 50.0 % [facility] Monocytes 9.4 5.3 - 12.0 % [facility] Eos 2.2 0.8 - 5.0 % [facility] Basos 0.3 0.2 - 1.2 % [facility] Immature 0.3 0.0 - 0.5 % [facility] Granulocytes Neutrophils 3.76 1.78 - 5.36 K/uL [facility] (Absolute) Lymphs 1.48 1.32 - 3.57 K/uL [facility] (Absolute) Monocytes(Absol 0.56 0.30 - 0.82 K/uL [facility] damian) Eos (Absolute) 0.13 0.04 - 0.54 K/uL [facility] Baso (Absolute) 0.02 0.01 - 0.08 K/uL [facility] Immature Grans 0.02 0.00 - 0.03 K/uL [facility] (Abs) Absolute NRBC 0.00 K/uL [facility] Specimen Blood Performing Organization Address City/State/Zipcode Ph one Number [facility] [address] [place] [phone] * Comprehensive Metabolic Panel (02/10/2019 3:37 AM CDT) Sodium 137 136 - 145 mmol/L [facility] Potassium 3.9 3.5 - 5.1 mmol/L [facility] Chloride 101 98 - 107 mmol/L [facility] CO2 26 21 - 31 mmol/L [facility] Glucose 81 70 - 110 mg/dL [facility] Calcium 8.7 8.6 - 10.3 mg/dL [facility] Urea Nitrogen 13.0 7.0 - 25.0 mg/dL [facility] Creatinine 0.7 0.7 - 1.3 mg/dL [facility] Alkaline 63 34 - 104 U/L [facility] Phosphatase ALT 14 7 - 52 U/L [facility] AST 20 13 - 39 U/L [facility] Bilirubin, 0.2 0.2 - 1.2 mg/dL [facility] Total Total Protein 5.8 (L) 6.0 - 8.3 g/dL [facility] GFR, Estimated >90 >=90 mL/min/1.73 m2 [facility] Albumin 3.1 (L) 4.2 - 5.5 g/dL [facility] Anion Gap 10 5 - 16 mmol/L [facility] Specimen Blood Performing Organization Address [facility] one Number [facility] [address] [place] [phone] * Phosphorus (02/10/2019 3:37 AM CDT) Only the most recent of 5 results within the time period is included. [facility] Phosphorus 3.8 2.5 - 5.0 mg/dL [facility] Specimen Blood Performing Organization Address [facility] one Number [facility] [address] [place] [phone] * Magnesium (02/10/2019 3:37 AM CDT) Only the most recent of 6 results within the time period is included. [facility] Magnesium 1.6 (L) 1.9 - 2.7 mg/dL [facility] Specimen Blood Performing Organization Address [facility] one Number [facility] [address] [place] [address] [phone] * Calcium, Ionized (02/10/2019 3:37 AM CDT) Only the most recent of 4 results within the time period is included. Pathologist [facility] Calcium, 1.18 1.15 - 1.29 mmol/L [facility] Ionized Specimen Blood Performing Organization Address [facility] one Number [facility] [address] [place] [address] * Liver Profile (02/09/2019 8:55 AM CDT) [facility] Total Protein 5.6 (L) 6.0 - 8.3 g/dL [facility] Bilirubin, 0.3 0.2 - 1.2 mg/dL [facility] Total Alkaline 61 34 - 104 U/L [facility] Phosphatase AST 26 13 - 39 U/L [facility] Direct 0.1 0.0 - 0.2 mg/dL [facility] Bilirubin ALT 17 7 - 52 U/L [facility] Albumin 3.0 (L) 4.2 - 5.5 g/dL [facility] Specimen Blood Performing Organization Address [facility] one Number [facility] [address] [place] [address] * Basic Metabolic Panel (02/09/2019 8:55 AM CDT) Only the most recent of 7 results within the time period is included. Pathologist [facility] Sodium 139 136 - 145 mmol/L [facility] Potassium 3.9 3.5 - 5.1 mmol/L [facility] Chloride 101 98 - 107 mmol/L [facility] CO2 30 21 - 31 mmol/L [facility] Urea Nitrogen 17.0 7.0 - 25.0 mg/dL [facility] Creatinine 0.7 0.7 - 1.3 mg/dL [facility] Glucose 81 70 - 110 mg/dL [facility] Calcium 8.4 (L) 8.6 - 10.3 mg/dL [facility] GFR, Estimated >90 >=90 mL/min/1.73 m2 [facility] Anion Gap 8 5 - 16 mmol/L [facility] Specimen Blood Performing Organization Address [facility] Ph one Number [facility] [address] [place] [address] * Urinalysis (02/09/2019 5:34 AM CDT) Only the most recent of 2 results within the time period is included. Color Yellow Colorless, Straw, [facility] Yellow Clarity Cloudy (A) Clear [facility] Spec [place], >1.035 (H) 1.001 - 1.035 [facility] Ur pH, Ur 6.0 5.0 - 8.0 [facility] Protein, Ur 1+ (A) Negative mg/dL [facility] Glucose, Ur 1+ (A) Negative mg/dL [facility] Ketone, Ur Negative Negative mg/dL [facility] Bilirubin, Ur Negative Negative mg/dL [facility] Nitrite, Ur Negative Negative [facility] Leukocyte 3+ (A) Negative mg/dL [facility] Blood, Ur 1+ (A) Negative mg/dL [facility] RBC 56 (H) 0 - 4 /HPF [facility] WBC >182 (H) 0 - 5 /HPF [facility] Epithelial Cell 2 (H) <=1 /HPF [facility] Bacteria Moderate (A) None seen /HPF [facility] WBC Clumps Many (A) None seen /HPF [facility] Urobilinogen, <1.0 <1.0 EU/dL [facility] Ur Specimen Urine Performing Organization Address City/State/[facility] one Number [facility] [address] [place] [address] * Urine Culture (02/09/2019 5:34 AM CDT) Only the most recent of 3 results within the time period is included. Urine Culture 10,000-100,000 CFU/mL Extended [facility] spectrum beta-lactamase [facility]ORY producing Escherichia coli (A) Specimen Urine - Straight catheter Antibiotic Method Susceptibility Organism Amikacin SENSITIVITY <=4 ug/mL: Susceptible Extended spectrum beta-lactamase producing Escherichia coli Ampicillin SENSITIVITY >16 ug/mL: Resistant Extended spectrum beta-lactamase producing Escherichia coli Ampicillin-Sulbactam SENSITIVITY >16/8 ug/mL: Intermediate Extended spectrum beta-lactamase producing Escherichia coli Cefazolin SENSITIVITY >32 ug/mL: Resistant Extended spectrum beta-lactamase producing Escherichia coli Cefepime SENSITIVITY >16 ug/mL: Resistant Extended spectrum beta-lactamase producing Escherichia coli Ceftazidime SENSITIVITY >16 ug/mL: Resistant Extended spectrum beta-lactamase producing Escherichia coli Ceftriaxone SENSITIVITY >32 ug/mL: Resistant Extended spectrum beta-lactamase producing Escherichia coli Ciprofloxacin SENSITIVITY >2 ug/mL: Resistant Extended spectrum beta-lactamase producing Escherichia coli Ertapenem SENSITIVITY 0.25 ug/mL: Susceptible Extended spectrum beta-lactamase producing Escherichia coli Gentamicin SENSITIVITY >8 ug/mL: Resistant Extended spectrum beta-lactamase producing Escherichia coli Meropenem SENSITIVITY <=0.125 ug/mL: Susceptible Extended spectrum beta-lactamase producing Escherichia coli Nitrofurantoin SENSITIVITY <=16 ug/mL: Susceptible Extended spectrum beta-lactamase producing Escherichia coli Piperacillin-Tazobactam SENSITIVITY 8/4 ug/mL: Susceptible Extended spectrum beta-lactamase producing Escherichia coli Tobramycin SENSITIVITY >8 ug/mL: Resistant Extended spectrum beta-lactamase producing Escherichia coli Trimethoprim-Sulfamethoxazole SENSITIVITY <=0.5/9.5 ug/mL: Susceptible Extended spectrum beta-lactamase producing Escherichia coli Fosfomycin SENSITIVITY 1.5: Susceptible Extended spectrum beta-lactamase producing Escherichia coli Performing Organization Address City/State/[facility] Ph one Number [facility] [address] [place] [address] * Differential, Manual (02/09/2019 3:29 AM CDT) Neutrophil 81.0 (H) 34.0 - 67.9 % [facility] Lymphs 14.0 (L) 21.8 - 50.0 % [facility] Monocytes 5.0 (L) 5.3 - 12.0 % [facility] Eos 0.0 (L) 0.8 - 5.0 % [facility] LABORATORY Basos 0.0 (L) 0.2 - 1.2 % [facility] Neutrophils 5.51 (H) 1.78 - 5.36 K/uL [facility] (Absolute) Lymphs 0.95 (L) 1.32 - 3.57 K/uL [facility] (Absolute) Monocytes(Absol 0.34 0.30 - 0.82 K/uL [facility] R[facility] damian) Eos (Absolute) 0.00 (L) 0.04 - 0.54 K/uL [facility] Baso (Absolute) 0.00 (L) 0.01 - 0.08 K/uL [facility] Cells Counted [facility] Specimen Blood Performing Organization Address [facility] [place] one Number [facility] [address] [place] [address] [phone] * POCT VBG POC docked device (02/09/2019 2:42 AM CDT) Only the most recent of 6 results within the time period is included. pH, Noé POC 7.43 7.33 - 7.43 [facility] HCO3, Noé POC 23 22 - 26 mmol/L [facility] TCO2 POC 24 21 - 32 mmol/L [facility] PO2, Venous POC 54 50 - 75 mm Hg [facility] (BKR) pCO2,Noé POC 35.4 (L) 38 - 50 mmHg [facility] Base Deficit, -1 [facility] Noé POC Sánchez's Test YADY [facility] Sample Type IVEN [facility] Site RRADIA [facility] Lactic Acid POC 0.39 (L) 0.40 - 2.00 mmol/L [facility] % Sat, Noé POC 89 % [facility] Specimen Blood, venous Performing Organization Address [facility] Ph one Number [facility] [address] [place] [address] [phone] * CT ABDOMEN AND PELVIS CONTRAST (02/09/2019 1:17 AM CDT) Specimen Impressions Performed At IMPRESSION: SMS 1. Acute bilateral pyelonephritis wit h associated pyelitis and ureteritis. No evidence of organized fl uid collection. Bladder wall thickening suggestive of cystitis. 2. Stable postsurgical changes from s egmentectomy involving the posterior medial aspect of the right lo wer lobe. Stable small loculated fluid collection with surrounding pleur al calcifications in the right lower lobe. 3. Severe diffuse atherosclerotic dis ease of the abdominal aorta and its branches including prominent calcif ications at the celiac and SMA origins. 4. Stable appearance of fusion hardwa re at L4-S1. 5. Descending colonic diverticulosis without evidence of acute diverticulitis. 6. Stable cystic lesions in the left kidney. This [facility] radiology report is a prelimi nary resident dictation until finalized by an attending. Changes to this preliminary report may occur in an additional preliminary or finaliz ed version. Dictated By: Orlando Lama MD, 02/09 2:04 AM I have reviewed the study and agree wit h the findings in this report. Signed By: Edson Mckee MD, 9 4:19 AM Narrative Performed At EXAM: CT ABDOMEN AND PELVIS WITH CONTRAST SMS DATE: 02/09/2019 1:17 AM INDICATION: Abd pain, acute, generalize d. Sepsis, due to unspecified organism, unspecified whether acute org an dysfunction present COMPARISON: CT abdomen pelvis 11/20/2017 TECHNIQUE: Volumetric CT of the abdomen and pelvis is acquired following the intravenous administration of contr ast. Axial, coronal and sagittal images are provided. IV contrast: 100 of Omnipaque 300 Enteric contrast: None. DLP: 1359 mGy-cm FINDINGS: Lines, tubes and hardware: None. Lower thorax: Three-vessel coronary art annika disease. Stable postsurgical changes involving right lower lobe segm entectomy with an unchanged loculated fluid collection in the right posterior pleura with associated scattered pleural calcifications. These findings are unchanged when compared to prior study dated 11/20/2017 . Liver: Normal. Mild intrahepatic peripo rtal edema. Biliary tree: No intra- or extrahepatic biliary ductal dilation. Gallbladder: No CT evidence of cholelit hiasis. Pancreas: Normal. Spleen: Normal. Adrenals: Normal. Kidneys and ureters: Diffuse bilateral areas of decreased cortical attenuation. Increased mucosal enhancem ent of bilateral renal pelvises and ureters. Prominent bilateral perine phric fat stranding. Stable 4.8 cm hypodensity in the inferior pole of the left kidney with internal fluid density. 1.3 cm hypodensity in th e superior pole of the left kidney is also stable. Other scattered bilateral subcentimeter hypodensities that are too small to barak racterize but likely representing simple cysts. Bilateral renal calcifica tions are likely vascular in nature. Bladder: Normal. Reproductive organs: The prostate and s eminal vesicles are unremarkable. Gastrointestinal tract: Stomach: Normal. Small bowel: Normal. Colon: Moderate colonic stool burden. M inimal diverticulosis of the descending colon. Appendix: Normal image 30 series 60 1. Peritoneum, mesentery and retroperitone um: No free air, ascites or loculated fluid. Lymph nodes: Scattered nonspecific subc entimeter retroperitoneal lymph nodes. Vasculature: Aorta and branches: There are marked ar eas of calcified and noncalcified plaque along the abdominal aorta and il iac arteries. Evaluation of the lumen is limited due to prominent vesse l calcification. Prominent calcifications at the celiac and SMA or igins IVC and veins: Normal. Portal vasculature: Normal. Bones: No acute abnormality. Stable dayana earance of posterior L5 laminectomies and L4-S1 posterior spina l fusion, with intervertebral disc grafts and L5-S1 anterior vertebra l body screws. Disc disease at L2-3 with disc ossified complexes causi ng moderate spinal canal stenosis Soft tissues: Normal. Procedure Note Interface, Rad/Mammog In - 02/09/2019 4:24 AM CDT EXAM: CT ABDOMEN AND PELVIS WITH CONTRAST DATE: 02/09/2019 1:17 AM INDICATION: Abd pain, acute, generalized. Sepsis, due to unspecified organism, unspecified whether acute organ dysfunction present COMPARISON: CT abdomen pelvis 11/20/2017 TECHNIQUE: Volumetric CT of the abdomen and pelvis is acquired following the intravenous administration of contrast. Axial, coronal and sagittal images are provided. IV contrast: 100 of Omnipaque 300 Enteric contrast: None. DLP: 1359 mGy-cm FINDINGS: Lines, tubes and hardware: None. Lower thorax: Three-vessel coronary artery disease. Stable postsurgical changes involving right lower lobe segmentectomy with an unchanged loculated fluid collection in the right posterior pleura with associated scattered pleural calcifications. These findings are unchanged when compared to prior study dated 11/20/2017. Liver: Normal. Mild intrahepatic periportal edema. Biliary tree: No intra- or extrahepatic biliary ductal dilation. Gallbladder: No CT evidence of cholelithiasis. Pancreas: Normal. Spleen: Normal. Adrenals: Normal. Kidneys and ureters: Diffuse bilateral areas of decreased cortical attenuation. Increased mucosal enhancement of bilateral renal pelvises and ureters. Prominent bilateral perinephric fat stranding. Stable 4.8 cm hypodensity in the inferior pole of the left kidney with internal fluid density. 1.3 cm hypodensity in the superior pole of the left kidney is also stable. Other scattered bilateral subcentimeter hypodensities that are too small to characterize but likely representing simple cysts. Bilateral renal calcifications are likely vascular in nature. Bladder: Normal. Reproductive organs: The prostate and seminal vesicles are unremarkable. Gastrointestinal tract: Stomach: Normal. Small bowel: Normal. Colon: Moderate colonic stool burden. Minimal diverticulosis of the descending colon. Appendix: Normal image 30 series 601. Peritoneum, mesentery and retroperitoneum: No free air, ascites or loculated fluid. Lymph nodes: Scattered nonspecific subcentimeter retroperitoneal lymph nodes. Vasculature: Aorta and branches: There are marked areas of calcified and noncalcified plaque along the abdominal aorta and iliac arteries. Evaluation of the lumen is limited due to prominent vessel calcification. Prominent calcifications at the celiac and SMA origins IVC and veins: Normal. Portal vasculature: Normal. Bones: No acute abnormality. Stable appearance of posterior L5 laminectomies and L4-S1 posterior spinal fusion, with intervertebral disc grafts and L5-S1 anterior vertebral body screws. Disc disease at L2-3 with disc ossified complexes causing moderate spinal canal stenosis Soft tissues: Normal. IMPRESSION IMPRESSION: 1. Acute bilateral pyelonephritis with associated pyelitis and ureteritis. No evidence of organized fluid collection. Bladder wall thickening suggestive of cystitis. 2. Stable postsurgical changes from seg mentectomy involving the posterior medial aspect of the right lower lobe. Stable small loculated fluid collection with surrounding pleural calcifications in the right lower lobe. 3. Severe diffuse atherosclerotic disea se of the abdominal aorta and its branches including prominent calcifications at the celiac and SMA origins. 4. Stable appearance of fusion hardware at L4-S1. 5. Descending colonic diverticulosis wi thout evidence of acute diverticulitis. 6. Stable cystic lesions in the left ki dney. This [facility] radiology report is a preliminary resident dictation until finalized by an attending. Changes to this preliminary report may occur in an additional preliminary or finalized version. Dictated By: Orlando Lama MD, 02/09/2019 2:04 AM I have reviewed the study and agree with the findings in this report. Signed By: Edson Mckee MD, 02/09/2019 4:19 AM Performing Organization Address City/State/Zipcode Ph one Number SMS * XRAY CHEST 1 VIEW (02/08/2019 9:17 PM CDT) Only the most recent of 3 results within the time period is included. Specimen Impressions Performed At IMPRESSION: SMS ] Retrocardiac opacity may represent ai rspace disease versus atelectasis. Trace right pleural effusi on suspected. Signed By: Morena Dockery MD, 02/08/2019 9 :53 PM Narrative Performed At EXAM:XRAY CHEST 1 VIEW SMS DATE:02/08/2019 9:17 PM INDICATION:eval for pneumonia COMPARISON:Chest x-ray 02/05/2019 DISCUSSION: Stable elevation of the right hemidiaph ragm. Right retrocardiac opacity. Trace right pleural effusion is suspect ed. Left lung is clear. The cardiovascular silhouette is within nor mal limits. Procedure Note Interface, Rad/Mammog In - 02/08/2019 9:58 PM CDT EXAM:XRAY CHEST 1 VIEW DATE:02/08/2019 9:17 PM INDICATION:eval for pneumonia COMPARISON:Chest x-ray 02/05/2019 DISCUSSION: Stable elevation of the right hemidiaphragm. Right retrocardiac opacity. Trace right pleural effusion is suspected. Left lung is clear. The cardiovascular silhouette is within normal limits. IMPRESSION IMPRESSION: ] Retrocardiac opacity may represent airspace disease versus atelectasis. Trace right pleural effusion suspected. Signed By: Morena Dockery MD, 02/08/2019 9:53 PM Performing Organization Address [facility] one Number SMS * PT/INR/PTT (02/08/2019 8:41 PM CDT) [facility] PT 12.5 11.8 - 15.0 Seconds [facility] SERENA INR 1.0 Refer to INR ranges [facility] TOR Comment: 2.0 - 3.0 for moderate intensity anticoagulation 2.5 - 3.5 for high intensity anticoagulation PTT 42.9 (H) 23.6 - 36.4 Seconds [facility] PATRIZIA GAXIOLA Comment: The recommended therapuetic range is an APTT 61-103 seconds which corresponds to 0.3-0.7 anti Xa u/ml. Specimen Blood Performing Organization Address [facility] one Number [facility] [address] [place] [address] * Blood Culture (02/08/2019 8:41 PM CDT) Only the most recent of 4 results within the time period is included. [facility] Blood Culture No growth 5 days [facility] Specimen Blood - Peripheral Blood Performing Organization Address [facility] one Number [facility] [address] [place] [address] * POCT TROPONIN I POC docked device (02/08/2019 7:45 PM CDT) Only the most recent of 2 results within the time period is included. Troponin POC 0.01 0.00 - 0.08 ng/mL [facility] R[facility] Specimen Blood, venous Performing Organization Address [facility] Ph one Number [facility] [address] [place] [address] [phone] * POCT BMP POC docked device (02/08/2019 7:44 PM CDT) Only the most recent of 3 results within the time period is included. [facility] Sodium POC 137 136 - 145 mmol/L [facility] Potassium POC 4.5 3.5 - 5.1 mmol/L [facility] Chloride POC 100 98 - 107 mmol/L [facility] TCO2 POC 31 21 - 32 mmol/L [facility] Urea Nitrogen 29 (H) 7 - 18 mg/dL [facility] POC Creatinine POC 1.1 0.6 - 1.3 mg/dL [facility] Glucose POC 95 74 - 106 mg/dL [facility] Ionized Calcium 1.18 1.15 - 1.29 mmol/L [facility] POC GFR, Estimated 66 (L) >=90 mL/min/1.73 m2 [facility] Hemoglobin POC 12.2 12 - 16 g/dL [facility] Hematocrit POC 36.0 (L) 37.0 - 47.0 % [facility] Specimen Blood, venous Performing Organization Address [facility] one Number [facility] [address] [place] [phone] * PT/INR (01/22/2019 4:12 AM CDT) [facility] PT 15.0 11.8 - 15.0 Seconds [facility] 1.2 Refer to INR ranges [facility] Comment: 2.0 - 3.0 for moderate intensity anticoagulation 2.5 - 3.5 for high intensity anticoagulation Specimen Blood Performing Organization Address [facility] one Number [facility] [address] [place] [address] [phone] * Hemoglobin A1C (01/22/2019 4:11 AM CDT) [facility] Hemoglobin A1c 7.2 (H) 4.3 - 6.1 % [facility] Estimated 160 (H) 70 - 110 mg/dL [facility] Average Glucose Specimen Blood Performing Organization Address City/State/Zipcode Ph one Number [facility] [address] [place] [address] * XRAY CHEST 2 VIEWS (01/21/2019 6:03 PM CDT) Specimen Impressions Performed At IMPRESSION: SMS 1. Persistent right lower lung reticu lar opacities, which may represent scarring or subsegmental atelectasis, w ith possible superimposed consolidation, possibly due to infectio n or aspiration pneumonitis. 2. Postsurgical changes in the right lung are unchanged compared to prior. This [facility] radiology report is a prelimi nary resident dictation until finalized by an attending. Changes to this preliminary report may occur in an additional preliminary or finaliz ed version. Dictated By: Herbert Parra MD, 01/21/2019 6:31 PM I have reviewed the study and agree wit h the findings in this report. Signed By: Radha Sanderson MD, 01/21/2019 6 :57 PM Narrative Performed At EXAM: XR CHEST 2 VIEWS SMS DATE: 01/21/2019 6:03 PM INDICATION: atelectasis and pneumonia. Pneumonia of right lung due to infectious organism, unspecified part o f lung COMPARISON: Chest x-ray obtained 5 hour s prior TECHNIQUE: PA and lateral chest radiogr aphs FINDINGS: Lines, tubes and hardware: Stable appea fatoumata of midline sternotomy wires, sutures in the right upper lung, and mediastinal surgical clips. Lungs and pleura: There is persistent r ight lower lung reticular opacities, which may represent scarring versus subsegmental atelectasis. Cannot rule out superimposed areas of c onsolidation in the right lower lung. There is decreased volume in the right lung compared to the left. The left lung is largely clear. Possibl e small bilateral pleural effusions. Heart and mediastinum: The heart size i s normal for technique. The mediastinal contours are normal. Bones and soft tissues: Degenerative ch anges are present without acute abnormality. Procedure Note Interface, Rad/Mammog In - 01/21/2019 7:02 PM CDT EXAM: XR CHEST 2 VIEWS DATE: 01/21/2019 6:03 PM INDICATION: atelectasis and pneumonia. Pneumonia of right lung due to infectious organism, unspecified part of lung COMPARISON: Chest x-ray obtained 5 hours prior TECHNIQUE: PA and lateral chest radiographs FINDINGS: Lines, tubes and hardware: Stable appearance of midline sternotomy wires, sutures in the right upper lung, and mediastinal surgical clips. Lungs and pleura: There is persistent right lower lung reticular opacities, which may represent scarring versus subsegmental atelectasis. Cannot rule out superimposed areas of consolidation in the right lower lung. There is decreased volume in the right lung compared to the left. The left lung is largely clear. Possible small bilateral pleural effusions. Heart and mediastinum: The heart size is normal for technique. The mediastinal contours are normal. Bones and soft tissues: Degenerative changes are present without acute abnormality. IMPRESSION IMPRESSION: 1. Persistent right lower lung reticula r opacities, which may represent scarring or subsegmental atelectasis, with possible superimposed consolidation, possibly due to infection or aspiration pneumonitis. 2. Postsurgical changes in the right herminio ng are unchanged compared to prior. This [facility] radiology report is a preliminary resident dictation until finalized by an attending. Changes to this preliminary report may occur in an additional preliminary or finalized version. Dictated By: Herbert Parra MD, 01/21/2019 6:31 PM I have reviewed the study and agree with the findings in this report. Signed By: Radha Sanderson MD, 01/21/2019 6:57 PM Performing Organization Address City/State/Zipcode Ph one Number SMS * XRAY FOOT 3 VIEWS MIN (01/21/2019 4:40 PM CDT) Specimen Impressions Performed At IMPRESSION: SMS Mildly displaced oblique fracture of th e lateral malleolus, likely subacute. Signed By: Radha Sanderson MD, 01/21/2019 5 :24 PM Narrative Performed At EXAM: XR LEFT ANKLE 3 VIEWS SMS EXAM: XR LEFT FOOT 3 VIEWS DATE: 01/21/2019 4:40 PM INDICATION: pain, reported fracture. Le ft ankle pain, unspecified chronicity COMPARISON: None available TECHNIQUE: 3 views of the ankle, 3 view s of the foot. FINDINGS: Mild generalized bony deminer alization. Ankle: There is oblique fracture of the lateral malleolus with questionable extension to syndesmosis. The distal fragment is displaced anterolaterally by approximately one co rtical width. The ankle mortise is congruent. Small plantar kay caneal enthesophyte. Foot: No acute fracture or malalignment is identified. Soft tissues: Mild soft tissue swelling overlying the lateral malleolus. Atherosclerotic vascular calcifications are present. Procedure Note Interface, Rad/Mammog In - 01/21/2019 5:29 PM CDT EXAM: XR LEFT ANKLE 3 VIEWS EXAM: XR LEFT FOOT 3 VIEWS DATE: 01/21/2019 4:40 PM INDICATION: pain, reported fracture. Left ankle pain, unspecified chronicity COMPARISON: None available TECHNIQUE: 3 views of the ankle, 3 views of the foot. FINDINGS: Mild generalized bony demineralization. Ankle: There is oblique fracture of the lateral malleolus with questionable extension to syndesmosis. The distal fragment is displaced anterolaterally by approximately one cortical width. The ankle mortise is congruent. Small plantar calcaneal enthesophyte. Foot: No acute fracture or malalignment is identified. Soft tissues: Mild soft tissue swelling overlying the lateral malleolus. Atherosclerotic vascular calcifications are present. IMPRESSION IMPRESSION: Mildly displaced oblique fracture of the lateral malleolus, likely subacute. Signed By: Radha Sanderson MD, 01/21/2019 5:24 PM Performing Organization Address City/State/Zipcode Ph one Number SMS * XRAY ANKLE 3 VIEW MIN (01/21/2019 4:40 PM CDT) Specimen Impressions Performed At IMPRESSION: SMS Mildly displaced oblique fracture of th e lateral malleolus, likely subacute. Signed By: Radha Sanderson MD, 01/21/2019 5 :24 PM Narrative Performed At EXAM: XR LEFT ANKLE 3 VIEWS [facility] EXAM: XR LEFT FOOT 3 VIEWS DATE: 01/21/2019 4:40 PM INDICATION: pain, reported fracture. Le ft ankle pain, unspecified chronicity COMPARISON: None available TECHNIQUE: 3 views of the ankle, 3 view s of the foot. FINDINGS: Mild generalized bony deminer alization. Ankle: There is oblique fracture of the lateral malleolus with questionable extension to syndesmosis. The distal fragment is displaced anterolaterally by approximately one co rtical width. The ankle mortise is congruent. Small plantar kay caneal enthesophyte. Foot: No acute fracture or malalignment is identified. Soft tissues: Mild soft tissue swelling overlying the lateral malleolus. Atherosclerotic vascular calcifications are present. Procedure Note [place], Rad/Mammog In - 01/21/2019 5:29 PM CDT EXAM: XR LEFT ANKLE 3 VIEWS EXAM: XR LEFT FOOT 3 VIEWS DATE: 01/21/2019 4:40 PM INDICATION: pain, reported fracture. Left ankle pain, unspecified chronicity COMPARISON: None available TECHNIQUE: 3 views of the ankle, 3 views of the foot. FINDINGS: Mild generalized bony demineralization. Ankle: There is oblique fracture of the lateral malleolus with questionable extension to syndesmosis. The distal fragment is displaced anterolaterally by approximately one cortical width. The ankle mortise is congruent. Small plantar calcaneal enthesophyte. Foot: No acute fracture or malalignment is identified. Soft tissues: Mild soft tissue swelling overlying the lateral malleolus. Atherosclerotic vascular calcifications are present. IMPRESSION IMPRESSION: Mildly displaced oblique fracture of the lateral malleolus, likely subacute. Signed By: Radha Sanderson MD, 01/21/2019 5:24 PM Performing Organization Address [facility] one Number [facility] * Purple Top (01/21/2019 1:14 PM CDT) Hold Specimen [id number] [facility] Specimen Blood Performing Organization Address [facility] one Number [facility] [address] [place] [phone] * Gold Top Tube (01/21/2019 1:14 PM CDT) Only the most recent of 2 results within the time period is included. Hold Specimen [id number] [facility] Specimen Blood Performing Organization Address [facility] one Number [facility] [address] [place] [phone] * 12 LEAD EKG (01/21/2019 12:52 PM CDT) [facility] Date: 2019-01-21 Pat Name: MARLEN NOLAND Department: Room: [facility] Gender: M [employer] Checker: [id number] : 1945 Requested By: HERBERT Hager Order Number: [id number] Edward BIGGS: Yvan Coely Measurements Intervals Delight Rate: 130 P: MN: 0 QRS: 105 QRSD: 110 T: 67 QT: 327 QTc: 482 Interpretive Statements ATRIAL FIBRILLATION WITH RAPID VENTRICULAR RESPONSE MARKED RIGHT AXIS DEVIATION [QRS AXIS > 100] RIGHT BUNDLE BRANCH BLOCK [120+ ms QRS DURATION, UPRIGHT V1, 40+ ms S IN I/aVL/V4/V5/V6] Electronically Signed On 01-23-2019 16:13:27 CDT by Yvan Coley Specimen Performing Organization Address City/State/Zipcode Ph one Number SMS after 09/11/2018 Additional Health Concerns Resolved Time Infection Noted Time Escherichia coli (E. Coli) MDR 02/09/2019 2:03 PM C DT Advance Directives Date Inactivated Comments Code Status Date Activated 02/10/2019 1:53 PM Full Code 02/09/2019 2:35 AM 01/26/2019 3:20 PM Full Code 01/21/2019 5:16 PM 11/23/2017 1:35 PM Full Code 11/20/2017 8:20 AM
--- OUTSIDE RECORDS SUMMARY | 2019-09-12 18:00 | XMS REPORT | Clinical Summary ---
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 Active glimepiride (AMARYL) 4 MG Take 4 mg by 0 tablet mouth daily before breakfast. Active lisinopril Take 2.5 mg 0 (PRINIVIL,ZESTRIL) 2.5 mg by mouth tablet daily. Active metFORMIN (GLUCOPHAGE) Take 1,000 mg 0 1,000 mg tablet by mouth 2 (two) times a day with meals. Active NIFEdipine XL (PROCARDIA Take 30 mg by 0 XL) 30 MG 24 hr tablet mouth every 12 (twelve) hours. Active pantoprazole (PROTONIX) Take 40 mg by 0 40 MG EC tablet mouth daily. Active aspirin (ECOTRIN) 81 MG Take 81 mg by 0 enteric coated tablet mouth daily. Active baclofen (LIORESAL) 10 MG Take 10 mg by 0 tablet mouth every 8 (eight) hours as needed. Active atorvastatin (LIPITOR) 40 Take 40 mg by 0 MG tablet mouth daily. Active rOPINIRole (REQUIP) 2 MG Take 2 mg by 0 tablet mouth 2 (two) times a day. Active nitroglycerin (NITROSTAT) Place 0.4 mg 0 0.4 MG SL tablet under the tongue every 5 (five) minutes as needed for chest pain. Active ALPRAZolam (XANAX) 2 MG Take 2 mg by 0 tablet mouth 3 (three) times a day as needed for anxiety. Active apixaban (ELIQUIS) 5 mg Take 5 mg by 0 tablet mouth 2 (two) times a day. Active clopidogreL (PLAVIX) 75 Take 75 mg by 0 mg tablet mouth daily. Active diltiazem CD (CardIZEM Take 120 mg 0 CD) 120 MG 24 hr capsule by mouth daily. Active fenofibrate (LOFIBRA) 160 Take 160 mg 0 MG tablet by mouth daily. Active finasteride (PROSCAR) 5 Take 5 mg by 0 mg tablet mouth daily. Active HYDROcodone-acetaminophen Take 1 tablet 0 (NORCO) 10-325 mg per by mouth tabletIndications: acute every 4 pain (four) hours as needed for moderate pain .acute pain. Active levETIRAcetam (KEPPRA) Take 1,000 mg 0 500 MG tablet by mouth 2 (two) times a day. Active metoprolol succinate XL Take 25 mg by 0 (TOPROL-XL) 25 mg 24 hr mouth daily. tablet Active multivitamin (THERAGRAN) Take 1 tablet 0 tablet by mouth daily. Active traZODone (DESYREL) 100 Take 100 mg 0 MG tablet by mouth nightly. Active albuterol (ACCUNEB) 1.25 Take 1 ampule 0 mg/3 mL nebulizer by solution nebulization every 4 (four) hours as needed for wheezing. Active ipratropium (ATROVENT Inhale 2 0 HFA) 17 mcg/actuation puffs every 6 inhaler (six) hours. Active ondansetron (ZOFRAN) 4 MG Take 4 mg by 0 tablet mouth every 8 (eight) hours as needed for nausea or vomiting. 09/11/2018 Discontinued metoprolol tartrate Take 12.5 mg 0 (LOPRESSOR) 25 mg tablet by mouth 2 (two) times a day. 07/10/2019 Discontinued (Discontinued b y another clinician) spironolactone Take 50 mg by 0 (ALDACTONE) 50 MG tablet mouth daily. 07/10/2019 Discontinued (Discontinued b y another clinician) tamsulosin (FLOMAX) 0.4 Take 0.4 mg 0 mg capsule,extended by mouth release 24hr daily. 09/11/2018 Discontinued donepezil (ARICEPT) 10 MG Take 10 mg by 0 tablet mouth nightly. 09/11/2018 Discontinued escitalopram (LEXAPRO) 20 Take 20 mg by 0 MG tablet mouth nightly. 09/11/2018 Discontinued fenofibrate (LOFIBRA) 160 Take 160 mg 0 MG tablet by mouth daily. 09/11/2018 Discontinued traZODone (DESYREL) 50 MG Take 50 mg by 0 tablet mouth nightly. 09/27/2018 sulfamethoxazole-trimetho Take 1 tablet 20 tablet 0 prim (BACTRIM DS) 800-160 by mouth 9 mg per tablet every 12 (twelve) hours for 10 days. 10/17/2018 hydrALAZINE (APRESOLINE) Take 1 tablet 60 tablet 0 50 MG tablet (50 mg total) 9 by mouth 2 (two) times a day for 30 days. 10/17/2018 ipratropium-albuterol Take 3 mL by 270 mL 0 (DUO-NEB) 0.5-2.5 mg/3 mL nebulization 9 nebulizer every 6 (six) hours while awake for 30 days. 10/18/2018 predniSONE (DELTASONE) 20 Take 1 tablet 30 tablet 0 201 mg tablet (20 mg total) 9 by mouth daily for 30 days. 10/17/2018 guaiFENesin (MUCINEX) 600 Take 2 120 tablet 0 mg tablet extended tablets 9 release 12hr (1,200 mg total) by mouth 2 (two) times a day for 30 days. 07/18/2019 cefuroxime (CEFTIN) 500 Take 1 tablet 14 tablet 0 MG tablet (500 mg 0 total) by mouth 2 (two) times a day for 7 days. Active Problems Problem Noted Date Complicated UTI (urinary tract infection) 07/10/2019 Pneumonia of right lower lobe due to infectious organ ism 09/11/2018 First time seizure 09/06/2017 Encounters Care Team Description Date Type Specialty Ion [facility]od MD Berberian, Esteban N., MD Complicated UTI (urinary tract infection ) (Primary Dx); Abdominal pain, unspecified abdominal location 07/10/2019 [facility] - Encounter 07/11/2019 Annetta Serna 09/17/2018 Patient Quality Outreach Valente Thomas MD BRONCHOSCOPY 09/14/2018 Surgery Gastroenterology Dinesh Hartmann MD Allencherril, Paul Joseph, MD Pneumonia of right lower lobe due to inf ectious organism (HCC) (Primary Dx); Severe sepsis (HCC); Fever, unspecified fever cause; Hypotension, unspecified hypotension type; GARRET (acute kidney injury) (HCC); Non-traumatic rhabdomyolysis 09/10/2018 [facility] [place] [facility] - Encounter 09/17/2018 after 09/11/2018 Immunizations Name Administration Dates Next Due Pneumococcal Conjugate 09/17/2018 13-Valent Social History Date Tobacco Use Types Packs/Day Years Used Current Every Day Smoker Cigarettes 0.5 Smokeless Tobacco: Never Used Drinks/Week oz/Week Comments Alcohol Use No Sex Assigned at Date Recorded Not on file Industry Job Start Date Occupation Not on file Not on file Not on file Travel End Travel History Travel Start No recent travel history available. Last Filed Vital Signs Reading Time Taken Comments Vital Sign 116/53 07/11/2019 7:00 AM CDT Blood Pressure 77 07/11/2019 7:00 AM CDT Pulse 36.4 C (97.5 F) 07/11/2019 7:00 AM CDT Temperature 18 07/11/2019 7:00 AM CDT Respiratory Rate 97% 07/11/2019 7:00 AM CDT Oxygen Saturation - - Inhaled Oxygen Concentration 74.9 kg (165 lb 2 oz) 07/10/2019 11:02 AM CDT Weight 177.8 cm (5' 10") 07/10/2019 11:02 AM CDT Height 23.69 07/10/2019 11:02 AM CDT Body Mass Index Plan of Treatment Health Maintenance Due Date Last Done Comments DIABETIC RETINAL EYE EXAM 1945 DIABETIC FOOT EXAM 1955 COLONOSCOPY SCREENING 1995 SHINGLES VACCINES (#1) 1995 INFLUENZA VACCINE 12/02/2019 12/29/2018, 04/06/2018, 02/04/2017, Additional history exists 65+ PNEUMOCOCCAL VACCINE Completed 09/17/2018, 07/22/2015, 06/06/2014, Additional history exists Procedures Comments Procedure Name Priority Date/Time Associated Diag nosis ESTIMATED GFR STAT 07/11/2019 8:47 AM CDT MAGNESIUM LEVEL STAT 07/11/2019 8:47 AM CDT BASIC METABOLIC PANEL STAT 07/11/2019 8:47 AM CDT POC GLUCOSE Routine 07/11/2019 6:33 AM CDT POC GLUCOSE Routine 07/11/2019 6:00 AM CDT POC GLUCOSE Routine 07/10/2019 9:43 PM CDT POC GLUCOSE Routine 07/10/2019 6:29 PM CDT POC GLUCOSE Routine 07/10/2019 3:54 PM CDT ECG 12-LEAD STAT 07/10/2019 1:06 PM CDT POC GLUCOSE Routine 07/10/2019 11:51 AM CDT TROPONIN Timed 07/10/2019 6:49 AM CDT LACTIC ACID LEVEL, SEPSIS Timed 07/10/2019 - NOW AND REPEAT 2X EVERY 6:49 AM CDT 3 HOURS TROPONIN Timed 07/10/2019 4:06 AM CDT LACTIC ACID LEVEL, SEPSIS Timed 07/10/2019 - NOW AND REPEAT 2X EVERY 4:06 AM CDT 3 HOURS URINE CULTURE STAT 07/10/2019 3:12 AM CDT URINALYSIS SCREEN AND STAT 07/10/2019 MICROSCOPY, WITH REFLEX 2:[address] ABDOMEN PELVIS WO STAT 07/10/2019 CONTRAST 1:18 AM CDT ESTIMATED GFR STAT 07/10/2019 1:05 AM CDT B NATRIURETIC PEPTIDE STAT 07/10/2019 1:05 AM CDT TROPONIN STAT 07/10/2019 1:05 AM CDT LIPASE LEVEL STAT 07/10/2019 1:05 AM CDT LACTIC ACID LEVEL, SEPSIS STAT 07/10/2019 - NOW AND REPEAT 2X EVERY 1:05 AM CDT 3 HOURS COMPREHENSIVE METABOLIC STAT 07/10/2019 PANEL 1:05 AM CDT HC COMPLETE BLD COUNT STAT 07/10/2019 W/AUTO DIFF 1:05 AM CDT POC GLUCOSE Routine 09/17/2018 11:16 AM CDT ESTIMATED GFR STAT 09/17/2018 8:15 AM CDT COMPREHENSIVE METABOLIC STAT 09/17/2018 PANEL 8:15 AM CDT HC COMPLETE BLD COUNT STAT 09/17/2018 W/AUTO DIFF 8:15 AM CDT POC GLUCOSE Routine 09/17/2018 6:39 AM CDT POC GLUCOSE Routine 09/17/2018 6:30 AM CDT POC GLUCOSE Routine 09/16/2018 10:11 PM CDT POC GLUCOSE Routine 09/16/2018 4:08 PM CDT POC GLUCOSE Routine 09/16/2018 11:52 AM CDT XR CHEST 1 VW PORTABLE Routine 09/16/2018 8:13 AM CDT POC GLUCOSE Routine 09/16/2018 6:15 AM CDT POC GLUCOSE Routine 09/15/2018 8:39 PM CDT XR CHEST 1 VW PORTABLE Routine 09/15/2018 6:06 PM CDT POC GLUCOSE Routine 09/15/2018 4:02 PM CDT POC GLUCOSE Routine 09/15/2018 12:12 PM CDT POC GLUCOSE Routine 09/15/2018 7:37 AM CDT ESTIMATED GFR Routine 09/15/2018 6:40 AM CDT HC COMPLETE BLD COUNT Routine 09/15/2018 W/AUTO DIFF 6:40 AM CDT BASIC METABOLIC PANEL Routine 09/15/2018 6:40 AM CDT POC GLUCOSE Routine 09/14/2018 9:33 PM CDT POC GLUCOSE Routine 09/14/2018 4:34 PM CDT BLOOD CULTURE, AEROBIC & Timed 09/14/2018 ANAEROBIC 2:37 PM CDT BLOOD CULTURE, AEROBIC & Timed 09/14/2018 ANAEROBIC 2:32 PM CDT SURGICAL PATHOLOGY Routine 09/14/2018 REQUEST 12:53 PM CDT POC GLUCOSE Routine 09/14/2018 12:53 PM CDT CYTOLOGY Routine 09/14/2018 (NON-GYNECOLOGICAL) 12:19 PM CDT REQUEST GRAM STAIN Routine 09/14/2018 11:58 AM CDT RESPIRATORY CULTURE Routine 09/14/2018 11:58 AM CDT BRONCHOSCOPY 09/14/2018 Pneumonia of right lower 11:30 AM CDT lobe due to infectious organism (HCC) POC GLUCOSE Routine 09/14/2018 10:05 AM CDT POC GLUCOSE Routine 09/14/2018 5:33 AM CDT POC GLUCOSE Routine 09/13/2018 8:21 PM CDT POC GLUCOSE Routine 09/13/2018 4:[address] CHEST WO CONTRAST Routine 09/13/2018 3:45 PM CDT POC GLUCOSE Routine 09/13/2018 12:40 PM CDT POC GLUCOSE Routine 09/13/2018 7:46 AM CDT POC GLUCOSE Routine 09/12/2018 8:30 PM CDT POC GLUCOSE Routine 09/12/2018 5:36 PM CDT POC GLUCOSE Routine 09/12/2018 11:00 AM CDT ESTIMATED GFR Routine 09/12/2018 8:42 AM CDT COMPREHENSIVE METABOLIC Routine 09/12/2018 PANEL 8:42 AM CDT HC COMPLETE BLD COUNT Routine 09/12/2018 W/AUTO DIFF 8:42 AM CDT POC GLUCOSE Routine 09/12/2018 6:31 AM CDT POC GLUCOSE Routine 09/11/2018 8:47 PM CDT POC GLUCOSE Routine 09/11/2018 4:21 PM CDT POC GLUCOSE Routine 09/11/2018 11:20 AM CDT POC GLUCOSE Routine 09/11/2018 7:07 AM CDT URINE DRUGS OF ABUSE Routine 09/11/2018 SCREEN 5:59 AM CDT LACTIC ACID LEVEL, SEPSIS Timed 09/11/2018 - NOW AND REPEAT 2X EVERY 4:08 AM CDT 3 HOURS HEPATIC FUNCTION PANEL Routine 09/11/2018 3:47 AM CDT LIPID PANEL Routine 09/11/2018 3:47 AM CDT AMMONIA LEVEL Routine 09/11/2018 3:47 AM CDT PROTHROMBIN TIME WITH INR Routine 09/11/2018 3:47 AM CDT ESTIMATED GFR Routine 09/11/2018 3:47 AM CDT TROPONIN Routine 09/11/2018 3:47 AM CDT BASIC METABOLIC PANEL Routine 09/11/2018 3:47 AM CDT HC COMPLETE BLD COUNT Routine 09/11/2018 W/AUTO DIFF 3:47 AM CDT POC GLUCOSE Routine 09/11/2018 3:32 AM CDT TROPONIN Timed 09/11/2018 1:07 AM CDT LACTIC ACID LEVEL, SEPSIS Timed 09/11/2018 - NOW AND REPEAT 2X EVERY 1:07 AM CDT 3 HOURS after 09/11/2018 Results * Estimated GFR (07/11/2019 8:47 AM CDT) Only the most recent of 6 results within the time period is included. Pathologist [facility] Estimated GFR 88 mL/min/1.73 m2 KENOSHA Comment: [facility] G1 >=90 Normal or high G2 60-89 Mildly decreased G3a 45-59 Mildly to moderately decreased G3b 30-44 Moderately to severely decreased G4 15-29 Severely decreased G5 <15 Kidney failure The eGFR was calculated using the Chronic Kidney Disease Epidemiology Collaboration (CKD-EPI) equation. Interpretation is based on recommendations of the National Kidney Foundation-Kidney Disease Outcomes Quality Initiative (NKF-KDOQI) published in 2014. Specimen Plasma specimen Performing Organization Address City/[facility] Ph one Number [facility] [address] [place] [address] PATHOLOGY AND GENOMIC MEDICINE [address] * Magnesium level (07/11/2019 8:47 AM CDT) [facility] Magnesium 1.60 1.60 - 2.40 mg/dL [facility] Specimen Plasma specimen Performing Organization Address City/[facility] Ph one Number [facility] [place] [address] [place] [address] PATHOLOGY AND GENOMIC MEDICINE [address] * Basic metabolic panel (07/11/2019 8:47 AM CDT) Only the most recent of 3 results within the time period is included. [facility] Sodium 141 135 - 150 mEq/L [facility] Potassium 3.8 3.5 - 5.0 mEq/L [facility] Chloride 105 98 - 112 mEq/L [facility] CO2 24 24 - 31 mmol/L [facility] Anion gap 12@ANIO 7 - 15 mEq/L [facility] BUN 12 7 - 18 mg/dL [facility] Creatinine 0.80 0.70 - 1.20 mg/dL [facility] Glucose 108 (H) 65 - 100 mg/dL [facility] Calcium 9.2 8.8 - 10.2 mg/dL [facility] Specimen Plasma specimen Performing Organization Address City/State/Zipcode Ph one Number [facility] [address] [place] [address] PATHOLOGY AND GENOMIC MEDICINE [address] * POC glucose (07/11/2019 6:33 AM CDT) Only the most recent of 35 results within the time period is included. POC glucose 95 65 - 100 mg/dL KENOSHA Comment: GNOSTICISM [employer] Painter Helper Name: [facility] Device ID: [id number] Specimen Performing Organization Address City/[facility] Ph one Number [facility] [address] [place] [address] PATHOLOGY AND GENOMIC MEDICINE [address] * ECG 12 lead (07/10/2019 1:06 PM CDT) Ventricular 88 [facility] rate Atrial rate 88 [facility] OR interval 174 [facility] QRSD interval 140 [facility] QT interval 408 [facility] QTC interval 493 [facility] P axis 1 61 [facility] QRS axis 1 111 [facility] T wave axis 77 [facility] EKG impression Sinus rhythm with occasional H MUSE premature ventricular complexes-Right bundle branch block-Left posterior fascicular block-^^^ Bifascicular block ^^^-Abnormal ECG-In automated comparison with ECG of 10-SEP-2018 22:27,-premature ventricular complexes are now present-T wave inversion now evident in Anterior leads- Specimen Narrative Performed At This result has an attachment that is n ot available. Performing Organization Address City/State/Zipcode Ph one Number [facility] MUSE [address] [place] [address] * Lactic acid level, SEPSIS - Now and repeat 2x every 3 hours (07/10/2019 6:49 AM CDT) Only the most recent of 5 results within the time period is included. Lactic acid 0.8 0.5 - 2.2 mmol/L [facility] Specimen Blood Performing Organization Address City/State/Zipcode Ph one Number [facility] [address] [place] [address] PATHOLOGY AND GENOMIC MEDICINE [facility] [address] * Troponin (07/10/2019 6:49 AM CDT) Only the most recent of 5 results within the time period is included. Troponin 0.006 0.000 - 0.040 ng/mL KENOSHA Comment: GNOSTICISM In patients suspected of DAMON having a myocardial HOSPITAL infarction, along with all other appropriate clinical measures and actions including ECG and other diagnostics as appropriate, measure Ultra TnI at 0 hrs and at 3 hrs. Myocardial infarction VERY LIKELY The 0 hr TnI level is > 0.10 ng/mL Myocardial infarction LIKELY The 0 hr TnI level is > 0.04 ng/mL and 3 hr level is increased or decreased by at least 0.020 ng/mL Myocardial infarction VERY UNLIKELY Both the 0 hr and 3 hr TnI levels <= 0.04 ng/mL(within normal limits) OR 0 hr is > 0.04 ng/mL and 3 hr is increased OR decreased by less than 0.020 ng/mL Specimen Plasma specimen Performing Organization Address City/State/Zipcode Ph one Number [facility] [address] [place] [address] PATHOLOGY AND GENOMIC MEDICINE [facility] [address] [place] [address] HOSPITAL * Urine culture (07/10/2019 3:12 AM CDT) Urine culture Duplicate organism-no further [facility] isolate workup GNOSTICISM >10-5 cfu/ml HOSPITAL (A) Comment: Specimen Information Specimen Source: Urine Specimen Site: Clean catch Urine culture Escherichia coli AYO isolate >10-5 cfu/ml GNOSTICISM [facility] characteristics of this assay on this isolate were validated by the Microbiology Laboratory at [facility]. This source has not been approved by the U.S. Food and Drug Administration. The results are not intended to be used as the sole means for clinical diagnosis or patient management. The Microbiology Laboratory is authorized under the clinical Laboratory Improvement Amendments of 1988 (CLIA-88) to perform high complexity testing. This isolate is a x ray service technician of ESBL (extended spectrum beta lactamase). This organism may be clinically resistant to penicillins, cephalosporins or aztreonam despite apparent in vitro susceptibility to some of these agents. (A) Specimen Urine Antibiotic Method Susceptibility Organism Ampicillin LATASHA >16 mcg/mL: Resistant Escherichia coli Amoxicillin/Clavulanate LATASHA 8/4 mcg/mL: Resistant Escherichia coli Amikacin LATASHA <=4 mcg/mL: Susceptible Escherichia coli Aztreonam LATASHA >16 mcg/mL: Resistant Escherichia coli Ceftazidime LATASHA 16 mcg/mL: Resistant Escherichia coli Ciprofloxacin LATASHA >2 mcg/mL: Resistant Escherichia coli Ceftriaxone LATASHA >32 mcg/mL: Resistant Escherichia coli Cefuroxime Sodium LATASHA >16 mcg/mL: Resistant Escherichia coli Cefazolin LATASHA >32 mcg/mL: Resistant Escherichia coli Cefepime LATASHA >16 mcg/mL: Resistant Escherichia coli Nitrofurantoin LATASHA <=16 mcg/mL: Susceptible Escherichia coli Gentamicin LATASHA >8 mcg/mL: Resistant Escherichia coli Imipenem LATASHA <=0.25 mcg/mL: Susceptible Escherichia coli Levofloxacin LATASHA >4 mcg/mL: Resistant Escherichia coli Meropenem LATASHA <=0.125 mcg/mL: Susceptible Escherichia coli Tobramycin LATASHA >8 mcg/mL: Resistant Escherichia coli Ampicillin/Sulbactam LATASHA 16/8 mcg/mL: Resistant Escherichia coli Trimethoprim/Sulfamethoxazole LATASHA >2/38 mcg/mL: Resistant Escherichia coli Tetracycline LATASHA <=1 mcg/mL: Susceptible Escherichia coli Ertapenem LATASHA <=0.125 mcg/mL: Susceptible Escherichia coli Tigecycline LATASHA <=0.5 mcg/mL: Susceptible Escherichia coli Cefotaxime LATASHA mcg/mL: Resistant Escherichia coli Cephalothin LATASHA mcg/mL: Resistant Escherichia coli Fosfomycin KB mm: Resistant Escherichia coli Meropenem/Vaborbactam KB mm: Susceptible Escherichia coli Eravacycline BP 0.094 mcg/mL: Susceptible Escherichia coli Performing Organization Address City/State/Zipcode Ph one Number [facility] DEPARTMENT OF [address] [place] [address] PATHOLOGY AND GENOMIC MEDICINE [address] * Urinalysis screen and microscopy, with reflex to culture (07/10/2019 2:09 AM CDT) Specimen site Clean catch [facility] Color, UA Yellow [facility] Appearance, UA Cloudy [facility] Specific 1.010 1.001 - 1.035 KENOSHA gravity, UA [facility] pH, UA 5.0 5.0 - 8.5 [facility] Protein, UA Negative Negative [facility] Glucose, UA Negative Negative [facility] Ketones, UA Negative Negative [facility] Bilirubin, UA Negative Negative [facility] Blood, UA Small (A) Negative [facility] Nitrite, UA Negative Negative [facility] Urobilinogen, Negative <2.0 [facility] Leukocyte Large (A) Negative KENOSHA esterase, [facility] WBC, UA 91 (H) 0 - 1 /HPF [facility] RBC, UA 5 (A) 0 - 5 /HPF [facility] Bacteria, UA Trace None seen [facility] Yeast, UA None seen [facility] Yeast with None seen KENOSHA pseudohyphae, GNOSTICISM [facility] Specimen Urine Performing Organization Address City/State/Zipcode Ph one Number [facility] [address] [place] [address] PATHOLOGY AND GENOMIC MEDICINE [facility] [address] [place] [address] HOSPITAL * CT Abdomen Pelvis Wo Contrast (07/10/2019 1:18 AM CDT) Specimen Narrative Performed At CT ABDOMEN PELVIS WO CONTRAST RADIANT CLINICAL INDICATION: abdominal pain TECHNIQUE: Multidetector CT of the ab domen and pelvis was performed without intravenous contrast with multiplanar r econstructions. CT imaging was performed with iterative reconstruction technique and/or automated exposure control to reduce radiation dose. COMPARISON: None IMPRESSION: Please note, the lack of intravenous an d oral contrast limits evaluation of the abdominal and pelvic viscera. ABDOMEN/PELVIS: LOWER THORAX: Small right pleural eff usion with some pleural thickening. Some pleural calcifications are identified o f the right lung base. Bibasilar atelectasis/scarring. A couple of nodul es are seen of the right lung base, the largest measuring 0.4 cm. Extensive coronary artery calcification s and some mitral valve and aortic valve calcifications are seen. LIVER: Normal. BILIARY: Normal. SPLEEN: Normal. PANCREAS: Normal. ADRENALS: Normal. KIDNEYS: Simple cysts are seen of the left kidney. Some perinephric stranding is seen of the right kidney, and to a l jamin extent, the left kidney. This is nonspecific but could be seen with rosanne l failure or urinary tract infection, clinical correlation is advised. No hydronephrosis or hydrou reter. Mild wall thickening of the bladder is seen, which can be seen with cystitis and/or muscular hypertrophy. PERITONEUM: No free intraperitoneal flu id. No free intraperitoneal air. VASCULAR: Extensive atherosclerotic v ascular calcifications. Infrarenal abdominal aorta is ectatic measuring 2 cm. LYMPH NODES: No enlarged lymph nodes in the abdomen or pelvis. GI: Mild colonic diverticulosis is se en without diverticulitis. The appendix is normal. No gastrointestinal tract ob struction. BONES: Postoperative appearance of th e lower lumbar spine. Advanced degenerative change of lumbar spine. Ag e-indeterminate compression deformity of L1 is identified; correlation for point tenderness is advised to exclude recent injury. SOFT TISSUES: Unremarkable. Summary: Nonspecific perinephric stranding is se en of the kidneys, right greater than left. This can be seen with renal failu re or urinary tract infection, and clinical correlation is advised. Mild w all thickening of the bladder is seen, which can be seen with cystitis and/or muscular hypertrophy. Age-indeterminate compression deformity of L1 is identified; correlation for point tenderness is advised to exclude recent injury. [id number] Procedure Note Hm Interface, Radiology Results Incoming - 07/10/2019 1:[address] ABDOMEN PELVIS WO CONTRAST CLINICAL INDICATION: abdominal pain TECHNIQUE: Multidetector CT of the abdomen and pelvis was performed without intravenous contrast with multiplanar reconstructions. CT imaging was performed with iterative reconstruction technique and/or automated exposure control to reduce radiation dose. COMPARISON: None IMPRESSION: Please note, the lack of intravenous and oral contrast limits evaluation of the abdominal and pelvic viscera. ABDOMEN/PELVIS: LOWER THORAX: Small right pleural effusion with some pleural thickening. Some pleural calcifications are identified of the right lung base. Bibasilar atelectasis/scarring. A couple of nodules are seen of the right lung base, the largest measuring 0.4 cm. Extensive coronary artery calcifications and some mitral valve and aortic valve calcifications are seen. LIVER: Normal. BILIARY: Normal. SPLEEN: Normal. PANCREAS: Normal. ADRENALS: Normal. KIDNEYS: Simple cysts are seen of the left kidney. Some perinephric stranding is seen of the right kidney, and to a lesser extent, the left kidney. This is nonspecific but could be seen with renal failure or urinary tract infection, clinical correlation is advised. No hydronephrosis or hydroureter. Mild wall thickening of the bladder is seen, which can be seen with cystitis and/or muscular hypertrophy. PERITONEUM: No free intraperitoneal fluid. No free intraperitoneal air. VASCULAR: Extensive atherosclerotic vascular calcifications. Infrarenal abdominal aorta is ectatic measuring 2 cm. LYMPH NODES: No enlarged lymph nodes in the abdomen or pelvis. GI: Mild colonic diverticulosis is seen without diverticulitis. The appendix is normal. No gastrointestinal tract obstruction. BONES: Postoperative appearance of the lower lumbar spine. Advanced degenerative change of lumbar spine. Age-indeterminate compression deformity of L1 is identified; correlation for point tenderness is advised to exclude recent injury. SOFT TISSUES: Unremarkable. Summary: Nonspecific perinephric stranding is seen of the kidneys, right greater than left. This can be seen with renal failure or urinary tract infection, and clinical correlation is advised. Mild wall thickening of the bladder is seen, which can be seen with cystitis and/or muscular hypertrophy. Age-indeterminate compression deformity of L1 is identified; correlation for point tenderness is advised to exclude recent injury. [id number] Performing Organization Address City/State/Zipcode Ph one Number [facility] [address] [place] [address] * CBC with platelet and differential (07/10/2019 1:05 AM CDT) Only the most recent of 5 results within the time period is included. WBC 8.4 4.2 - 11.0 k/uL [facility] RBC 3.88 (L) 4.04 - 5.86 m/uL [facility] HGB 11.4 (L) 13.0 - 17.3 g/dL [facility] HCT 34.8 34.0 - 45.0 % [facility] MCV 89.7 80.0 - 98.0 fL [facility] MCH 29.4 27.0 - 34.0 pg [facility] MCHC 32.8 31.5 - 36.5 g/dL [facility] RDW - SD 45.9 37.0 - 51.0 fL [facility] MPV 9.4 7.4 - 10.4 fL [facility] Platelet count 252 150 - 400 k/uL [facility] Nucleated RBC 0.00 /100 WBC [facility] Neutrophils 70.2 (H) 36.0 - 66.0 % [facility] Lymphocytes 17.9 (L) 24.0 - 44.0 % [facility] Monocytes 7.8 (H) 0.0 - 6.0 % [facility] Eosinophils 3.5 0.0 - 6.0 % [facility] Basophils 0.5 0.0 - 1.2 % [facility] Immature 0.1 0.0 - 1.0 % [facility]HA granulocytes [facility] Specimen Blood Performing Organization Address City/[facility] Ph one Number [facility] [address] [place] [address] PATHOLOGY AND GENOMIC MEDICINE [address] * B natriuretic peptide (07/10/2019 1:05 AM CDT) Pathologist [facility] BNP 78 0 - 100 pg/mL [facility] Specimen Blood Performing Organization Address City/[facility] Ph one Number [facility] [address] [place] [address] PATHOLOGY AND GENOMIC MEDICINE [address] * Lipase level (07/10/2019 1:05 AM CDT) Pathologist [facility] Lipase 16 13 - 60 U/L [facility] Specimen Plasma specimen Performing Organization Address City/[facility] Ph one Number [facility] [address] [place] [address] PATHOLOGY AND GENOMIC MEDICINE [address] * Comprehensive metabolic panel (07/10/2019 1:05 AM CDT) Only the most recent of 3 results within the time period is included. Sodium 133 (L) 135 - 150 mEq/L [facility] Potassium 4.1 3.5 - 5.0 mEq/L [facility] Chloride 97 (L) 98 - 112 mEq/L [facility] CO2 24 24 - 31 mmol/L [facility] Anion gap 12@ANIO 7 - 15 mEq/L [facility] BUN 14 7 - 18 mg/dL [facility] Creatinine 0.90 0.70 - 1.20 mg/dL [facility] Glucose 138 (H) 65 - 100 mg/dL [facility] Calcium 8.9 8.8 - 10.2 mg/dL [facility] Protein 7.2 6.3 - 8.3 g/dL [facility] Albumin 3.4 (L) 3.5 - 5.0 g/dL [facility] A/G ratio 0.9 0.7 - 3.8 [facility] Alkaline 76 0 - 129 U/L [facility] phosphatase [facility] AST 14 10 - 50 U/L [facility] ALT 8 5 - 50 U/L [facility] Total bilirubin <0.3 0.2 - 1.2 mg/dL [facility] Specimen Plasma specimen Performing Organization Address City/State/Zipcode Ph one Number [facility] [address] [place] [address] PATHOLOGY AND GENOMIC MEDICINE [facility] [address] [place], [place] [id number] [place] [address] * XR Chest 1 Vw Portable (09/16/2018 8:13 AM CDT) Only the most recent of 2 results within the time period is included. Specimen Narrative Performed At SINGLE VIEW CHEST, 09/16/2018 [facility] Clinical History: Pneumonia. Technique: Single, portable AP view [facility] st. Comparison: 12/16/2018 Impression: 1. Stable right hemidiaphragm elevati on with right lower thorax pleural thickening and subsegmental volume loss . The patient is status post right lower lobectomy. Right lower lung lung inters titial thickening and centrilobular nodules seen on CT from September 13, 2018 are difficult to discern s econdary to hemidiaphragm elevation. 2. Clear left lung. 3. Stable cardiomediastinal silhouett e, with normal heart size. 4. Overall, no interval change from ay 16. Procedure Note Interface, Radiology Results Incoming - 09/16/2018 8:23 AM CDT SINGLE VIEW CHEST, 09/16/2018 Clinical History: Pneumonia. Technique: Single, portable AP view chest. Comparison: 12/16/2018 Impression: 1. Stable right hemidiaphragm elevation with right lower thorax pleural thickening and subsegmental volume loss. The patient is status post right lower lobectomy. Right lower lung lung interstitial thickening and centrilobular nodules seen on CT from September 13, 2018 are difficult to discern secondary to hemidiaphragm elevation. 2. Clear left lung. 3. Stable cardiomediastinal silhouette, with normal heart size. 4. Overall, no interval change from September 15. Performing Organization Address City/[facility] Ph one Number [facility] [address] [place] [address] * Blood culture, aerobic & anaerobic (09/14/2018 2:37 PM CDT) Only the most recent of 2 results within the time period is included. Pathologist [facility] Blood culture No growth after 5 days of KENOSHA isolate incubation. GNOSTICISM Comment: HOSPITAL Specimen Information Specimen Source: Blood Specimen Site: L H Specimen Blood Performing Organization Address City/[facility] Ph one Number [facility] DEPARTMENT OF [address] [place] [address] PATHOLOGY AND GENOMIC MEDICINE [facility] GNOSTICISM [address] [place] [id number] HOSPITAL * Surgical pathology request (09/14/2018 12:53 PM CDT) Pathologist [facility] AND GENOMIC MEDICINE Surgical See link below for PDF Lab [facility] pathology Report OF PATHOLOGY report AND GENOMIC MEDICINE Result status This is Final Report for [facility] [id number] OF PATHOLOGY AND GENOMIC MEDICINE Specimen Performing Organization Address [facility] one Number [facility] [address] [place] [address] PATHOLOGY AND GENOMIC MEDICINE * Cytology (non-gynecological) request (09/14/2018 12:19 PM CDT) Pathologist [facility] AND GENOMIC MEDICINE Cytology See link below for PDF Lab [facility] (non-gynecologi Report OF PATHOLOGY kay) report AND GENOMIC MEDICINE Result status This is Final Report for [facility] [id number] OF PATHOLOGY AND GENOMIC MEDICINE Specimen Performing Organization Address [facility] one Number [facility] [address] [place] [address] PATHOLOGY AND GENOMIC MEDICINE * Respiratory culture (09/14/2018 11:58 AM CDT) Pathologist [facility] Respiratory No normal oral nikki isolated. 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 This organism may be clinically resistant to penicillins, cephalosporins or aztreonam despite apparent in vitro susceptibility to some of these agents. (A) Specimen Bronchial washing - Right and left lobes Antibiotic Method Susceptibility Organism Ampicillin LATASHA >16 mcg/mL: Resistant Escherichia coli Amoxicillin/Clavulanate LATASHA 16/8 mcg/mL: Resistant Escherichia coli Amikacin LATASHA <=4 mcg/mL: Susceptible Escherichia coli Aztreonam LATASHA >16 mcg/mL: Resistant Escherichia coli Ceftazidime LATASHA 16 mcg/mL: Resistant Escherichia coli Ciprofloxacin LATASHA >2 mcg/mL: Resistant Escherichia coli Ceftriaxone LATASHA >32 mcg/mL: Resistant Escherichia coli Cefuroxime Sodium LATASHA >16 mcg/mL: Resistant Escherichia coli Cefazolin LATASHA >32 mcg/mL: Resistant Escherichia coli Cefepime LATASHA >16 mcg/mL: Resistant Escherichia coli Gentamicin LATASHA >8 mcg/mL: Resistant Escherichia coli Imipenem LATASHA <=0.25 mcg/mL: Susceptible Escherichia coli Levofloxacin LATASHA >4 mcg/mL: Resistant Escherichia coli Meropenem LATASHA <=0.125 mcg/mL: Susceptible Escherichia coli Tobramycin LATASHA >8 mcg/mL: Resistant Escherichia coli Ampicillin/Sulbactam LATASHA >16/8 mcg/mL: Resistant Escherichia coli Trimethoprim/Sulfamethoxazole LATASHA <=0.5/9.5 mcg/mL: Susceptible Escherichia coli Tetracycline LATASHA >8 mcg/mL: Resistant Escherichia coli Ertapenem LATASHA <=0.125 mcg/mL: Susceptible Escherichia coli Tigecycline LATASHA <=0.5 mcg/mL: Susceptible Escherichia coli Cefotaxime LATASHA mcg/mL: Resistant Escherichia coli Cephalothin LATASHA mcg/mL: Resistant Escherichia coli Performing Organization Address [facility] Ph one Number [facility] DEPARTMENT OF [address] [place] [address] PATHOLOGY AND GENOMIC MEDICINE [facility] GNOSTICISM [address] [place] [address] * Gram stain (09/14/2018 11:58 AM CDT) Gram stain No WBC's or organisms seen. BOURNE isolate Comment: GNOSTICISM Specimen Information HOSPITAL Specimen Source: Bronchial Washing Specimen Site: Right and left lobes Specimen Bronchial washing - Right and left lobes Performing Organization Address [facility] Ph one Number [facility] DEPARTMENT OF [address] [place] [address] PATHOLOGY AND GENOMIC MEDICINE [facility] GNOSTICISM [address] * CT Chest Wo Contrast (09/13/2018 3:45 PM CDT) Specimen Narrative Performed At EXAMINATION: [facility] CT CHEST WO CONTRAST CLINICAL HISTORY: Portal vein thrombosis TECHNIQUE: Multiple axial images of the chest were obtained without intravenous contrast. The lack of intravenous contrast reduce s the sensitivity of detecting solid organ disease and evaluating vasculatur e. Sagittal and coronal computerized reformatted images were also obtained. CT imaging was performed with iterative reconstruction techniques and/or automated exposure control to reduce ra diation dose. COMPARISON: Chest CT 09/10/2017 IMPRESSION: 1. There is scarring in the right ana maría g, and surgical changes of right lower lobectomy similar to previous study. Th ere are superimposed groundglass and patchy consolidative opacities scattere d in the right upper and middle lobes, and mild groundglass in the left upper lobe anteriorly that are new, consistent with infection. 2. There are mild endotracheal secret ions (image 31). 3. There is a small stable subcentime ter opacity in the left upper lobe (image 45) consistent with sequela of remote i nflammation. 4. Right pleural thickening and trace right pleural fluid are stable. 5. There are no significant thoracic lymph nodes. 6. The heart size is normal. Coronary atherosclerosis is present. 7. There is no acute finding in the p artly imaged upper abdomen. 8. There is no acute skeletal finding . [id number] Procedure Note Interface, Radiology Results Incoming - 09/13/2018 4:04 PM CDT EXAMINATION: CT CHEST WO CONTRAST CLINICAL HISTORY: Portal vein thrombosis TECHNIQUE: Multiple axial images of the chest were obtained without intravenous contrast. The lack of intravenous contrast reduces the sensitivity of detecting solid organ disease and evaluating vasculature. Sagittal and coronal computerized reformatted images were also obtained. CT imaging was performed with iterative reconstruction techniques and/or automated exposure control to reduce radiation dose. COMPARISON: Chest CT 09/10/2017 IMPRESSION: 1. There is scarring in the right lung, and surgical changes of right lower lobectomy similar to previous study. There are superimposed groundglass and patchy consolidative opacities scattered in the right upper and middle lobes, and mild groundglass in the left upper lobe anteriorly that are new, consistent with infection. 2. There are mild endotracheal secretio ns (image 31). 3. There is a small stable subcentimete r opacity in the left upper lobe (image 45) consistent with sequela of remote inflammation. 4. Right pleural thickening and trace r ight pleural fluid are stable. 5. There are no significant thoracic ly mph nodes. 6. The heart size is normal. Coronary a therosclerosis is present. 7. There is no acute finding in the par tly imaged upper abdomen. 8. There is no acute skeletal finding. [id number] Performing Organization Address [facility] Ph one Number [facility] [address] [place] [address] * Urine drugs of abuse screen (09/11/2018 5:59 AM CDT) Amphetamine Negative KENOSHA screen, urine [facility] Barbiturate Negative KEN[facility]HA screen, urine [facility] Benzodiazepine Negative K[facility]HA screen, urine [facility] Cocaine screen, Negative [facility]HA urine [facility] Methadone Negative [facility]HA metabolite [facility] ([facility]), urine [facility] Opiates screen, Negative KEN[facility]HA urine [facility] Phencyclidine Negative K[facility]HA screen, urine [facility] Cannabinoid Negative K[facility]HA screen, urine Comment: [facility] Drug screen minimum [facility] Amphetamines 1000 ng/mL Barbiturates 200 ng/mL Benzodiazepines 300 ng/mL Cocaine 300 ng/mL Methadone 300 ng/mL Opiates 300 ng/mL Oxycodone 300 ng/mL Phencyclidine 25 ng/mL Cannabinoids 50 ng/mL Tricyclics 1000 ng/mL Results are from screening tests and should only be used for medical evaluation. Drug testing for legal purposes requires definitive (or confirmatory) testing methods, which are available upon request. Contact the laboratory if definitive testing is required. Specimen Urine Performing Organization Address City/[facility] Ph one Number [facility] [address] [place] [address] PATHOLOGY AND GENOMIC MEDICINE [facility] [address] [place] [address] [facility] * Prothrombin time with INR (09/11/2018 3:47 AM CDT) Prothrombin 14.2 11.5 - 14.5 sec KENOSHA time [facility] INR 1.13 KENOSHA Comment: CONCHIS REGAN For patients on anticoagulant JONATAN therapy, reference ranges HOSPITAL below: Indication: INR Value Treatment of Venous Thrombosis, 2.0-3.0 pulmonary emboli, or prophylaxis of a venous thrombosis, or systemic emboli. High dose, high risk patients 3.0-4.5 with mechanical valves. NOTE: INR values over 3.0 are sometimes associated with gastrointestinal hemorrhage, especially values over 4.0. Specimen Blood Performing Organization Address [facility] Ph one Number [facility] [place] [phone] PATHOLOGY AND GENOMIC MEDICINE [place] [address] [address] * Ammonia level (09/11/2018 3:47 AM CDT) Ammonia 31 16 - 60 umol/L [facility] Specimen Plasma specimen Performing Organization Address [facility] Ph one Number [facility] [address] [place] [phone] PATHOLOGY AND GENOMIC MEDICINE [address] * Hepatic function panel (09/11/2018 3:47 AM CDT) Albumin 2.7 (L) 3.5 - 5.0 g/dL [facility] Total bilirubin 0.4 0.2 - 1.2 mg/dL [facility] Bilirubin 0.2 0.0 - 0.4 mg/dL [facility]HA direct [facility] Alkaline 39 0 - 129 U/L [facility] phosphatase [facility] Protein 5.8 (L) 6.3 - 8.3 g/dL [facility] ALT 31 5 - 50 U/L [facility] AST 112 (H) 10 - 50 U/L [facility] Specimen Plasma specimen Performing Organization Address [facility] Ph one Number [facility] [address] [place] [phone] PATHOLOGY AND GENOMIC MEDICINE [address] * Lipid panel (09/11/2018 3:47 AM CDT) Cholesterol 82 0 - 199 mg/dL [facility] Triglycerides 120 0 - 149 mg/dL [facility] HDL cholesterol 50 40 - 9,999 mg/dL [facility] LDL cholesterol 23Comment: Result obtained by 0 - 99 mg/dL K[facility]HA direct LDL measurement [facility] Lipid panel See below KENOSHA interpretation Comment: [facility] Total Cholesterol (mg/dL) [facility] Cholesterol HOSPITAL (mg/dL) <200 Desirable <100 Optimal 200-239 Borderline-high 100-129 Near or above optimal >=240 High 130-159 Borderline-high 160-189 High >=190 Very high HDL Cholesterol (mg/dL) Triglycerides (mg/dL) <40 Low <150 Normal >=60 High 150-199 Borderline-high 200-499 High >=500 Very high Risk Catergories that modify LDL goals. Risk Catergories LDL goal (mg/dL) CHD and CHD risk equivalent <100 (10-year risk >20%) Multiple (2+) risk factors <130 (10-year risk =<20%) 0-1 risk factors <160 (<10-year risk) Defining levels of lipids in metabolic syndrome Triglycerides >=150 mg/dL HDL Cholesterol Men <40 mg/dL Women <50 mg/dL Non-HDL cholesterol is a second target for therapy in persons with high triglycerides (>=200 mg/dL) Specimen Plasma specimen Performing Organization Address City/State/Zipcoms Ph one Number [facility] [address] [place] [address] PATHOLOGY AND GENOMIC MEDICINE [place] [address] [address] [place] [phone] [address] [facility] after 09/11/2018 Additional Health Concerns Resolved Time Infection Noted Time ESBL (C ) 07/18/2019 8:20 AM CDT Insurance Type Payer Benefit Subscriber ID Effective Phone Address Plan / Dates Group HMO [employer] TEXAN[employer]US xxxxxxxxx [id number] pittman HB Advance Directives For more information, please contact: [phone] Patient Title Attorney Explanation Type Date Recorded Advance Directives, 09/06/2017 10:04 PM Living Will and Medical Power of Financial Internship Advance Directives, 09/10/2018 10:52 PM Living Will and Medical Power of Financial Internship Advance Directives, 07/10/2019 1:17 AM Living Will and Medical Power of Financial Internship Date Inactivated Comments Code Status Date Activated 09/17/2018 8:43 PM Full Code 09/11/2018 12:10 AM Code Status decision reached by: Patient
--- OUTSIDE RECORDS SUMMARY | 2019-09-12 18:00 | XMS REPORT | Clinical Summary ---
Author Author [facility]ANUL[facility] Organization [facility] Address Unknown Phone Unavailable Care Team Providers [facility] [employer] Name Role Phone Darnell Vivar MD PCP Unavailable Julien Cedillo Jacob Unavailable Allergies Comments Active Allergy Reactions Severity Noted Date WEARING FENTANYL PATCH-LEFT SKIN RAW, RED, ITCHY Adhesive Rash High 06/27/2013 Fentanyl patch Fentanyl Rash, Other High 01/10/2018 (See Comments) Hallucination, myalgia Hallucinations, jerking, vivid dreams Levofloxacin Other (See High 07/01/2012 Comments) Morphine Sulfate Itching High 10/19/2015 Medications End Date Status Medication Sig Dispensed Refills Start Date Active glimepiride (AMARYL) 4 MG Take 4 mg by 0 tablet mouth every morning before breakfast. Active fenofibrate (TRIGLIDE) Take 1 tablet 30 tablet 1 0 10/12/ 160 MG tablet (160 mg 3 total) by mouth daily. Active pantoprazole (PROTONIX) Take 40 mg by 0 40 MG tablet mouth daily. Active albuterol (PROVENTIL) 2.5 Take 0.5 mLs 0 08/0 5/201 mg/0.5 mL Nebu nebulizer (2.5 mg 4 solution total) by nebulization every 4 (four) hours as needed (sob). Active atorvastatin (LIPITOR) 40 Take 40 mg by 0 MG tablet mouth daily. Active metFORMIN (GLUCOPHAGE) Take 1,000 mg 0 1000 MG tablet by mouth 2 (two) times daily with breakfast and dinner. Active aspirin 81 MG chewable Take 81 mg by 0 tablet mouth daily. Active tamsulosin (FLOMAX) 0.4 Take 0.4 mg 0 mg Cp24 24 hr capsule by mouth daily. Active finasteride (PROSCAR) 5 Take 5 mg by 0 mg tablet mouth daily. Active HYDROmorphone (DILAUDID) Take 4 mg by 0 4 MG tablet mouth every 6 (six) hours as needed for Pain. Active ALPRAZolam (XANAX) 2 MG Take 2 mg by 0 tablet mouth 3 9 (three) times daily. Active apixaban (ELIQUIS) 5 mg Take 5 mg by 0 Tab tablet mouth 2 (two) times daily. Active clopidogrel (PLAVIX) 75 Take 75 mg by 0 mg tablet mouth daily. Active dilTIAZem (CARDIZEM) 120 Take 120 mg 0 MG tablet by mouth daily. Active donepezil (ARICEPT ODT) Take 10 mg by 0 10 MG disintegrating mouth tablet nightly. Active gabapentin (NEURONTIN) Take 600 mg 0 01 600 MG tablet by mouth 3 9 (three) times daily. Active HYDROcodone-acetaminophen Take 10-325 0 12/02 (NORCO 10-325) 10-325 mg tablets by 9 per tablet mouth every 6 (six) hours as needed for Pain. Active ipratropium (ATROVENT Inhale 2 0 05/11/19 1 HFA) 17 mcg/actuation puffs by 8 inhaler mouth via inhaler daily. Active rOPINIRole (REQUIP) 2 MG Take 2 mg by 0 07/15 tablet mouth 2 (two) 9 times daily. Active traZODone (DESYREL) 100 Take 100 0 MG tablet tablets by 9 mouth nightly. 03/04/2020 Active levETIRAcetam (KEPPRA) Take 1 tablet 60 tablet 0 1 1000 MG tablet (1,000 mg 9 total) by mouth 2 (two) times daily. 01/26/2019 ALPRAZolam (XANAX) 1 MG Take 1 tablet 0 tablet (1 mg total) 8 by mouth 2 (two) times daily as needed for Anxiety. Max Daily Amount: 2 mg 01/26/2019 melatonin 5 mg Tab tablet Take 1 tablet 0 01/02 (5 mg total) 8 by mouth every night as needed (Insomnia). 01/26/2019 NIFEdipine (ADALAT CC) 30 Take 1 tablet 0 01/02 MG 24 hr tablet (30 mg total) 8 by mouth daily. 01/26/2019 lisinopril Take 1 tablet 0 (PRINIVIL,ZESTRIL) 2.5 MG (2.5 mg 8 tablet total) by mouth daily. 03/12/2019 nitrofurantoin, Take 1 14 capsule 0 macrocrystal-monohydrate, capsule (100 9 (MACROBID) 100 MG capsule mg total) by mouth 2 (two) times daily for 7 days. Active Problems Problem Noted Date Generalized weakness 03/03/2019 PAF (paroxysmal atrial fibrillation) 03/03/2019 Acute cystitis without hematuria 03/03/2019 Metabolic encephalopathy 03/03/2019 BPH (benign prostatic hyperplasia) 03/03/2019 Hemiparesis, unspecified hemiparesis etiology, unspec ified laterality 06/10/2018 TIA (transient ischemic attack) 06/10/2018 Chronic back pain 06/10/2018 Sepsis, due to unspecified organism 01/22/2018 Acute on chronic respiratory failure with hypoxia and hypercapnia 01/22/2018 Stage 3 severe COPD by GOLD classification 8 Hyponatremia 01/22/2018 Opiate or related narcotic overdose 01/10/2018 Pneumonia of right middle lobe due to infectious orga nism 01/10/2018 Respiratory distress 01/10/2018 Altered mental status, unspecified altered mental sta tus type 01/10/2018 Cervical spine disease 05/01/2017 Restrictive lung disease 04/29/2017 COPD (chronic obstructive pulmonary disease) 017 Tremor of face and hands 12/01/2013 Type 2 diabetes mellitus, without long-term current u se of insulin 10/07/2012 CAD (coronary artery disease),[place] CORONARY O FF PUMP MONCADA-Diag, 10/06/2012 RSVG-OM, RSVG-rca by Dr Barillas 10/07/2012 Encounters Care Team Description Date Type Specialty Yvan Rodas Jr., MD Zhou, Yang, MD Generalized weakness (Primary Dx); Altered mental status, unspecified altered mental status type; Type 2 diabetes mellitus without complication, without long-term current use of insulin (HCC) 03/03/2019 Emergency Cardiology - 03/05/2019 03/03/2019 Orders Only General Internal Me dicine 03/03/2019 Travel after 09/11/2018 Family History Medical History Relation Name Comments Other Father leukemia Other Mother lung cancer Other Sister DM Relation Name Status Comments Father Mother Sister Social History Date Tobacco Use Types Packs/Day Years Used Quit: 05/17/2013 Former Smoker Cigarettes 1 40 Smokeless Tobacco: Never Used Alcohol Use Drinks/Week oz/Week Comments No Sex Assigned at Date Recorded Not on file Industry Job Start Date Occupation Not on file Not on file Not on file Travel End Travel History Travel Start No recent travel history available. Last Filed Vital Signs Time Taken Vital Sign Reading 03/05/2019 7:34 AM SERVICE LOSS CONTROL CONSULTANT Blood Pressure 150/78 03/05/2019 10:00 AM SERVICE LOSS CONTROL CONSULTANT Pulse 86 03/05/2019 7:34 AM SERVICE LOSS CONTROL CONSULTANT Temperature 36.8 C (98.2 F) 03/05/2019 10:00 AM SERVICE LOSS CONTROL CONSULTANT Respiratory Rate 18 03/05/2019 10:00 AM SERVICE LOSS CONTROL CONSULTANT Oxygen Saturation 95% - Inhaled Oxygen - Concentration - Weight - - Height - - Body Mass Index - Plan of Treatment Health Maintenance Due Date Last Done Comments COLON CANCER SCREENING 1945 COLONOSCOPY HEMOGLOBIN A1C 12/09/2018 06/11/2018, 018, 10/13/2015, Additional history exists MEDICARE ANNUAL WELLNESS 05/04/2019 (YEAR 2 or FIRST YEAR if no IPPE) PNEUMOCOCCAL 65+ Completed 09/17/2018, 016, 06/06/2014, LOW/MEDIUM RISK Additional history exists INFLUENZA VACCINE Completed 12/29/2018, 018, 02/04/2017, Additional history exists Implants Device Identifier Shelf Expiration Date Model / Serial / L ot Implanted Type Area Manufactur er 10/06/2013 [id number] / / [id number] System,Anastomosis Proximal Cardiovasc N/A: Aorta CA RDICA [place] - [id number] [employer] Implanted: Qty: 2 on 10/06/2012 by Eric Barillas MD Procedures Comments Procedure Name Priority Date/Time Associated Diag nosis RHYTHM STRIP - SCAN 03/08/2019 8:52 AM SERVICE LOSS CONTROL CONSULTANT REPORT OF PROCEDURE - 03/08/2019 ENDOSCOPY SCAN 8:52 AM SERVICE LOSS CONTROL CONSULTANT POCT-GLUCOSE METER Routine 03/05/2019 7:30 AM SERVICE LOSS CONTROL CONSULTANT CBC W/PLT COUNT & AUTO Routine 03/05/2019 DIFFERENTIAL 5:46 AM SERVICE LOSS CONTROL CONSULTANT CBC W/PLT COUNT & AUTO Routine 03/05/2019 DIFFERENTIAL 5:46 AM SERVICE LOSS CONTROL CONSULTANT BASIC METABOLIC PANEL (7) Routine 03/05/2019 5:46 AM SERVICE LOSS CONTROL CONSULTANT POCT-GLUCOSE METER Routine 03/04/2019 9:10 PM CDT POCT-GLUCOSE METER Routine 03/04/2019 6:01 PM CDT POCT-GLUCOSE METER Routine 03/04/2019 12:48 PM CDT POCT-GLUCOSE METER Routine 03/04/2019 7:53 AM CDT BASIC METABOLIC PANEL (7) Routine 03/04/2019 2:35 AM CDT HEPATIC FUNCTION PANEL Routine 03/04/2019 2:35 AM CDT CBC W/PLT COUNT & AUTO Routine 03/04/2019 DIFFERENTIAL 2:34 AM CDT CBC W/PLT COUNT & AUTO Routine 03/04/2019 DIFFERENTIAL 2:34 AM CDT POCT-GLUCOSE METER Routine 03/03/2019 8:57 PM CDT POCT-GLUCOSE METER Routine 03/03/2019 5:22 PM CDT RAPID DRUG SCREEN, URINE STAT 03/03/2019 1:55 PM CDT URINALYSIS W/ REFLEX STAT 03/03/2019 URINE CULTURE 1:55 PM CDT URINE CULTURE STAT 03/03/2019 1:55 PM CDT BLOOD CULTURE STAT 03/03/2019 1:07 PM CDT BLOOD CULTURE STAT 03/03/2019 1:[address] BRAIN WITHOUT IV STAT 03/03/2019 CONTRAST 12:50 PM CDT XR CHEST 1 VIEW STAT 03/03/2019 PORTABLE/BEDSIDE 12:25 PM CDT ECG 12-LEAD Routine 03/03/2019 12:24 PM CDT Procedure Note - Interface, External Ris In - 03/03/2019 11:03 PM CDT Ventricula r Rate 93 BPM Atrial Rate 93 BPM P-R Interval 166 ms QRS Duration 134 ms Q-T Interval 384 ms QTC Calculatio n(Bazett) 477 ms P [place] 15 degrees R [place] 70 degrees T [place] 42 degrees Normal sinus rhythm Right bundle branch block Abnormal ECG When compared with ECG of 9 12:59, T wave inversion now evident in Anterior leads ECG 12-LEAD STAT 03/03/2019 12:24 PM CDT POCT-LACTIC ACID, VENOUS Routine 03/03/2019 12:19 PM CDT CBC W/PLT COUNT & AUTO STAT 03/03/2019 DIFFERENTIAL 12:12 PM CDT CBC W/PLT COUNT & AUTO STAT 03/03/2019 DIFFERENTIAL 12:12 PM CDT TROPONIN I STAT 03/03/2019 12:12 PM CDT B-TYPE NATRIURETIC FACTOR STAT 03/03/2019 (BNP) 12:12 PM CDT MAGNESIUM STAT 03/03/2019 12:12 PM CDT BASIC METABOLIC PANEL (7) STAT 03/03/2019 12:12 PM CDT after 09/11/2018 Results * RHYTHM STRIP - SCAN (03/08/2019 8:52 AM SERVICE LOSS CONTROL CONSULTANT) Narrative Performed At This result has an attachment that is n ot available. * EKG-SCANNED (03/08/2019 8:52 AM SERVICE LOSS CONTROL CONSULTANT) Narrative Performed At This result has an attachment that is n ot available. * POC-Glucose meter (03/05/2019 7:30 AM SERVICE LOSS CONTROL CONSULTANT) Only the most recent of 7 results within the time period is included. POC-Glucose Meter 140 (H)Comment: : TESTED AT 70 - 110 mg/dL [facility] [address] [facility], [facility] [id number]: Molecular Physicist/Cork Painter And Grader ID = [id number] for Edilson Early Specimen Blood Performing Organization Address City/State/Zipcode Ph one Number [facility] [address] [place], [place] [address] [facility] * CBC with platelet count + automated diff (03/05/2019 5:46 AM SERVICE LOSS CONTROL CONSULTANT) Only the most recent of 3 results within the time period is included. WBC 6.5 3.5 - 10.5 K/L [facility] RBC 3.61 (L) 4.63 - 6.08 M/L [facility] Hemoglobin 10.4 (L) 13.7 - 17.5 GM/DL [facility] Hematocrit 32.2 (L) 40.1 - 51.0 % [facility] MCV 89.2 79.0 - 92.2 fL [facility] MCH 28.8 25.7 - 32.2 pg [facility] MCHC 32.3 32.3 - 36.5 GM/DL [facility] RDW 15.1 (H) 11.6 - 14.4 % [facility] Platelets 229 150 - 450 K/CU MM [facility] MPV 10.0 9.4 - 12.4 fL [facility] nRBC 0 0 - 0 /100 WBC [facility] % Neutros 50 % [facility] % Lymphs 36 % [facility] % Monos 8 % [facility] % Eos 5 % [facility] % Baso 1 % [facility] # Neutros 3.29 1.78 - 5.38 K/L [facility] # Lymphs 2.34 1.32 - 3.57 K/L [facility] # Monos 0.49 0.30 - 0.82 K/L [facility] # Eos 0.34 0.04 - 0.54 K/L [facility] # Baso 0.04 0.01 - 0.08 K/L [facility] Immature 1 0 - 1 % [facility] Granulocytes-[facility] Specimen Blood Performing Organization Address City/[facility] Ph one Number [address] [facility] * Basic Metabolic Panel (03/05/2019 5:46 AM SERVICE LOSS CONTROL CONSULTANT) Only the most recent of 3 results within the time period is included. Sodium 135 (L) 136 - 145 meq/L [facility] Potassium 4.6 3.5 - 5.1 meq/L [facility] Chloride 101 98 - 107 meq/L [facility] CO2 27 22 - 29 meq/L [facility] BUN 11 7 - 21 mg/dL [facility] Creatinine 0.71 0.57 - 1.25 mg/dL [facility] Glucose 120 (H) 70 - 105 mg/dL [facility] Calcium 9.0 8.4 - 10.2 mg/dL [facility] EGFR 109Comment: ESTIMATED GFR IS mL/min/1.73 sq m [facility] NOT ACCURATE CREATININE [facility] CLEARANCE IN PREDICTING GLOMERULAR FILTRATION RATE. ESTIMATED GFR IS NOT APPLICABLE FOR DIALYSIS PATIENTS. Specimen Blood Performing Organization Address City/[facility] Ph one Number [address] [facility] * Hepatic function panel (03/04/2019 2:35 AM CDT) Protein, Total 7.0 6.0 - 8.3 gm/dL [facility] Albumin 3.7 3.5 - 5.0 g/dL [facility] Total Bilirubin 0.2 0.2 - 1.2 mg/dL [facility] Bilirubin, Direct 0.1 0.1 - 0.5 mg/dL [facility] Alkaline Phosphatase 79 40 - 150 U/L [facility] AST 11 5 - 34 U/L [facility] ALT 6 6 - 55 U/L [facility] Specimen Blood Performing Organization Address City/State/Zipcode Ph one Number [address] [facility] * Urinalysis w/Microscopic + Reflex to Culture (03/03/2019 1:55 PM CDT) Color, UA Light Yellow [facility] Clarity, UA Hazy [facility] Specific [place], UA 1.010 1.001 - 1.035 [facility] pH, UA 5.5 5.0 - 8.0 [facility] Protein, UA Negative Negative [facility] Glucose, UA Negative Negative [facility] Ketones, UA Negative Negative [facility] Bilirubin, UA Negative Negative [facility] Blood, UA Negative Negative [facility] Nitrite, UA Positive (A) Negative [facility] Leukocytes, UA Large (A) Negative [facility] Urobilinogen, UA 0.2 0.2 - 1.0 mg/dL [facility] RBC, UA 4 /HPF [facility] WBC, UA 65 /HPF [facility] Specimen Source [facility] Specimen Urine Performing Organization Address [facility] Ph one Number [place] [address] [facility] * Rapid drug screen, urine (03/03/2019 1:55 PM CDT) Barbiturate Screen Negative Negative [facility] Benzodiazepine Screen Positive (A) Negative [facility] Cocaine (Metab.) Screen Negative Negative [facility] Methadone Screen Negative Negative [facility] Opiate Screen Positive (A) Negative [facility] Cannabinoid Screen Negative Negative [facility] Amph/Methamph Screen Negative Negative [facility] Phencyclidine Screen Negative Negative [facility] Specimen Urine Narrative Performed At [facility] Cocaine 300 ng/mL [facility] Tdsgfybicbf55 n g/mL [id number] ng/mL Barbiturate 200 ng/ mL Fmoabtiplbfcz55 ng/ mL Opiate3 00 ng/mL Methadone 300 n g/mL Amphetamine/ 1000 ng/mL Methamphetamine This assay provides an unconfirmed qual itative test result for the clinical management of patients in emergency sit uations. Chain of custody not maintained. Some [id number] medications, as w ell as adulterants, may cause inaccurate results. Clinical correlation should be applied. A more comprehensive drug screen or confirmation of a detected dr arroyo may be performed upon request. Performing Organization Address City/[facility] Ph one Number [address] [facility] * Urine culture (03/03/2019 1:55 PM CDT) Result 90-99,000 col/mL Escherichia [facility] coli (A)Comment: ESBL Positive [facility] Specimen Urine Antibiotic Method Susceptibility Organism Amikacin 4: Susceptible Escherichia coli Ampicillin + Sulbactam >=32: Resistant Escherichia coli Aztreonam 16: Resistant Escherichia coli Cefepime Resistant Escherichia coli Cefoxitin Resistant Escherichia coli Ceftazidime 16: Resistant Escherichia coli Ceftriaxone >=64: Resistant Escherichia coli Ertapenem <=0.5: Susceptible Escherichia coli Gentamicin >=16: Resistant Escherichia coli Levofloxacin >=8: Resistant Escherichia coli Meropenem <=0.25: Susceptible Escherichia coli Nitrofurantoin <=16: Susceptible Escherichia coli Piperacillin + Tazobactam Resistant Escherichia coli Tetracycline >=16: Resistant Escherichia coli Tobramycin >=16: Resistant Escherichia coli Trimethoprim + Sulfamethoxazole <=20: Susceptible Escherichia coli Performing Organization Address [facility] one Jing [address] [facility] * Blood Culture - Routine (Left Venipuncture) (03/03/2019 1:07 PM CDT) Only the most recent of 2 results within the time period is included. Result No growth in 5 days [facility] Specimen Blood Performing Organization Address City/[facility] one Jing [address] [facility] * CT brain without IV contrast (03/03/2019 12:50 PM CDT) Specimen Narrative Performed At FINAL REPORT [employer] CT, BRAIN, WITHOUT CONTRAST INDICATION: headache WEAKNESS TECHNIQUE: Noncontrast axial imaging wa s obtained from the vertex to the skull base. Axial images were recon structed using a bone algorithm. DOSE REDUCTION: Dose modulation, iterat marleen reconstruction, and/or weight-based adjustment of the mA/kV wa s utilized to reduce the radiation dose to as low as reasonably achievable. COMPARISON: CT 06/10/2018 FINDINGS: Intracranial: Exam is degraded by motio n. Generalized cerebral atrophy with ex vacuo dilatation of the ventricular system proportionate to sulci. Scattered foci of hypoattenuation within the periventricular and subcortical white m atter are a nonspecific finding commonly attributed to chronic small vessel ischemic disease. No intracranial hemorrhage or abnormal extra-axial collection. No evidence of acute territorial infarct. No mass effect. No hydrocephalus. Osseous structures: No fracture. No radha picious lesion. Paranasal sinuses and mastoid air cells : No evidence of sinusitis. Mastoids are clear. Orbital contents: Globes are intact. IMPRESSION: Motion degraded exam. No acute intracra nial hemorrhage or territorial infarct. If there is persistent clinical concern for intracranial pathology, MR examination is recommended for furth er characterization. Signed: Percy Bryan MD Report Verified Date/Time: 9 12:54:53 Procedure Note Interface, External Ris In - 03/03/2019 12:[address] PM CD[address] FINAL REPORT CT, BRAIN, WITHOUT CONTRAST INDICATION: headache WEAKNESS TECHNIQUE: Noncontrast axial imaging was obtained from [...] hydrocephalus. Osseous structures: No fracture. No suspicious lesion. Paranasal sinuses and mastoid air cells: No evidence of sinusitis. Mastoids are clear. Orbital contents: Globes are intact. IMPRESSION: Motion degraded exam. No acute intracranial hemorrhage or territorial infarct. If there is persistent clinical concern for intracranial pathology, MR examination is recommended for further characterization. Signed: Percy Bryan MD Report Verified Date/Time: 03/03/2019 12:54:53 Performing Organization Address City/State/Zipcode Ph one Number [facility] * XR chest 1 view portable / bedside (03/03/2019 12:25 PM CDT) Specimen Narrative Performed At FINAL REPORT [facility] INDICATION: GENERALIZED WEAKNESS, NOT A SSOCIATED WITH EXTREMITIES COMPARISON: June 22, 2018 TECHNIQUE: Single frontal view of the c hest. FINDINGS: Lungs and pleura: Minimal bilateral sub segmental atelectasis No effusion. Heart and mediastinum: Normal heart siz e. Unremarkable mediastinal contours. Osseous structures: No acute abnormalit y. Other: None. IMPRESSION: No acute intrathoracic abnormality. Signed: Garo Medina MD Report Verified Date/Time: 9 12:37:45 Reading Location: [facility] Radiolo gy Reading Room Procedure Note Interface, External Ris In - 03/03/2019 12:40 PM CDT FINAL REPORT INDICATION: GENERALIZED WEAKNESS, NOT ASSOCIATED WITH EXTREMITIES COMPARISON: June 22, 2018 TECHNIQUE: Single frontal view of the chest. FINDINGS: Lungs and pleura: Minimal bilateral subsegmental atelectasis No effusion. Heart and mediastinum: Normal heart size. Unremarkable mediastinal contours. Osseous structures: No acute abnormality. Other: None. IMPRESSION: No acute intrathoracic abnormality. Signed: Garo Medina MD Report Verified Date/Time: 03/03/2019 12:37:45 Reading Location: [facility] Radiology Reading Room Performing Organization Address City/State/Zipcode Ph one Number [facility] * ECG 12 lead (03/03/2019 12:24 PM CDT) Specimen Narrative Performed At Ventricular Rate 93 BPM [facility] Atrial Rate 93 BPM P-R Interval 166 ms QRS Duration 134 ms Q-T Interval 384 ms QTC Calculation(Bazett) 477 ms P [place] 15 degrees R [place] 70 degrees T [place] 42 degrees Normal sinus rhythm Right bundle branch block Nonspecific ST abnormality Prolonged QT Abnormal ECG When compared with ECG of 10-JUN-2018 1 2:59, T wave inversion now evident in Anterio r leads Confirmed by Andrea SRINIVASAN, SCOTTY ([id number]) on 03/04/2019 7:53:41 AM Procedure Note Interface, External Ris In - 03/04/2019 7:53 AM CDT Ventricular Rate 93 BPM Atrial Rate 93 BPM P-R Interval 166 ms QRS Duration 134 ms Q-T Interval 384 ms QTC Calculation(Bazett) 477 ms P [place] 15 degrees R [place] 70 degrees T [place] 42 degrees Normal sinus rhythm Right bundle branch block Nonspecific ST abnormality Prolonged QT Abnormal ECG When compared with ECG of 10-JUN-2018 12:59, T wave inversion now evident in Anterior leads Confirmed by Andrea SRINIVASAN, SCOTTY ([id number]) on 03/04/2019 7:53:41 AM Performing Organization Address [facility] one Number [facility] * POC-Lactic Acid, Venous (03/03/2019 12:19 PM CDT) POC-Lactic Acid, Venous 1.7Comment: [facility] 0.[facility] - 1.7 mmol/L [place] [id number] [facility] Specimen Blood Performing Organization Address [facility] one Number [address] [facility] * Troponin I (03/03/2019 12:12 PM CDT) Troponin I <0.01 0.00 - 0.03 ng/mL [facility] Specimen Blood Narrative Performed At Troponin I (TnI) levels must be interpreted in the co ntext of the presenting [facility] symptoms and the clinical findings. Elevated TnI leve ls indicate myocardial [facility] damage, but are not specific for ischem ic heart disease. Elevated TnI levels are seen in patients with other cardiac con ditions (including myocarditis and congestive heart failure), and slight T nI elevations occur in patients with other conditions, including sepsis, leny al failure, acidosis, acute neurological disease, and persistent tachyarrhythmia . Performing Organization Address [facility] one Number [address] [facility] * B-type Natriuretic Factor (BNP) (03/03/2019 12:12 PM CDT) BNP 60 0 - 100 pg/mL [facility] Specimen Blood Performing Organization Address City/[facility] Ph one Number [facility] [address] [place], [place] [address] [facility] * Magnesium (03/03/2019 12:12 PM CDT) Magnesium 1.4 (L) 1.6 - 2.6 mg/dL [facility] Specimen Blood Performing Organization Address [facility] Ph one Number [facility] [address] [place], [place] [address] [facility] after 09/11/2018 Insurance Payer Benefit Subscriber ID Type Phone Address Plan / Group [employer] TEX[employer] xxxxxxxxx Maps HMO ALL Contracted [id number] [facility] Advance Directives For more information, please contact: [address] [phone] Date Inactivated Comments Code Status Date Activated 03/05/2019 1:22 PM Full Code 03/03/2019 3:51 PM This code status was determined by: Patient 03/03/2019 11:47 AM Full Code 06/10/2018 5:13 PM This code status was determined by: Patient 01/26/2018 7:12 PM Full Code 01/22/2018 11:32 PM This code status was determined by: Spouse 01/22/2018 11:32 PM Full Code 01/22/2018 9:41 PM This code status was determined by: Patient 01/17/2018 5:50 PM Full Code 01/11/2018 3:03 AM This code status was determined by: Patient
[2019-09-12] MEDS ORDERED: SODIUM CHLORIDE 0.9% 1000ML 1,000 ML IV STA (19:23)
[2019-09-12 19:29] LABS: BASOPHILS % 0.4 % (0.0-1.0); EOSINOPHILS # (AUTO) 0.1 (0.0-0.4); EOSINOPHILS % 1.3 % (0.0-6.0); HEMATOCRIT 35.5 % (38.2-49.6); HEMOGLOBIN 11.7 g/dL (14.0-18.0); LYMPHOCYTES # (AUTO) 1.6 (1.0-3.2); MEAN CORPUSCULAR HEMOGLOBIN 28.7 pg (28-32); MONOCYTES # (AUTO) 0.7 (0.2-0.8); MONOCYTES % 8.3 % (4.4-11.3); NEUTROPHILS # (AUTO) 5.7 (2.1-6.9); NEUTROPHILS % 69.4 % (38.7-80.0); PLATELET COUNT 265 x10e3/uL (140-360); RED BLOOD COUNT 4.08 x10e6/uL (4.3-5.7); RED CELL DISTRIBUTION WIDTH 13.6 % (11.7-14.4)
[2019-09-12 19:45] LABS: ALANINE AMINOTRANSFERASE 14 IU/L (0-55); ALBUMIN 3.5 g/dL (3.5-5.0); ALBUMIN/GLOBULIN RATIO 0.8 (0.8-2.0); ALKALINE PHOSPHATASE 91 IU/L (40-150); ANION GAP 16.6 mmol/L (8-16); BLOOD UREA NITROGEN 14 mg/dL (7-26); BUN/CREATININE RATIO 16 (6-25); CALCIUM 9.7 mg/dL (8.4-10.2); CARBON DIOXIDE 26 mmol/L (22-29); CHLORIDE 100 mmol/L (98-107); CREATINE KINASE 62 IU/L (30-200); CREATININE, SERUM 0.86 mg/dL (0.72-1.25); EST GLOMERULAR FILTRATION RATE > 60 ML/MIN (60-); GLUCOSE 145 mg/dL (74-118); POTASSIUM 3.6 mmol/L (3.5-5.1); SODIUM 139 mmol/L (136-145)
[2019-09-12] MEDS: PIPER-TAZ 3.375 GM 50 ML IV SCH (19:52)
[2019-09-12] MEDS ORDERED: MORPHINE SULFATE 2 MG/ML SYR 1ML IV STA (20:10)
[2019-09-12] MEDS ORDERED: ASPIRIN 81 MG CHEW TAB PO ONE (22:00)
[2019-09-12] MEDS ORDERED: HYDROCODON-ACE1 EAC9 PO (22:16)
[2019-09-12] MEDS: SODIUM CHLORIDE 0.9% 1000ML 1,000 ML IV SCH (22:22)
[2019-09-12] MEDS: HYDROCODONE/APAP 10MG-325MG TAB PO PRN (22:34)
[2019-09-12] MEDS ORDERED: BACLOFEN10 MG PO (22:40)
[2019-09-12] MEDS ORDERED: GLIMEPIRIDE4 MG PO (22:40)
[2019-09-12] MEDS ORDERED: GABAPENTIN300 MG PO (22:40)
[2019-09-12] MEDS ORDERED: NITROGLYCERIN0.4 MG SL (22:40)
[2019-09-12] MEDS ORDERED: TRAZODONE HCL100 MG PO (22:40)
[2019-09-12] MEDS ORDERED: ATORVASTATIN CA40 MG PO (22:40)
[2019-09-12] MEDS ORDERED: FLOMAX0.4 MG PO (22:40)
[2019-09-12] MEDS ORDERED: ONDANSETRON HCL4 MG PO (22:40)
[2019-09-12] MEDS ORDERED: FINASTERIDE5 MG PO (22:40)
[2019-09-12] MEDS ORDERED: METFORMIN HCL1000 MG PO (22:40)
[2019-09-12] MEDS ORDERED: ALPRAZOLAM2 MG PO (22:40)
--- NOTE | 2019-09-12 23:10 | NUR ---
pt unable to urinate x3 attmepts. pt c/o pain to suprapubic region, states that has "strong" urge to urinate. informed. nolan catheter orders. 16fr nolan inserted using sterile technique. 575 slightly cloudy yellow urine return noted. dr scott informed. ua ordered. specimen collected from nolan port and sent to lab.
[2019-09-12 23:28] LABS: BILIRUBIN,URINE NEGATIVE (NEGATIVE); CLARITY,URINE CLOUDY (CLEAR); COLOR,URINE YELLOW (YELLOW); KETONES,URINE NEGATIVE (NEGATIVE); LEUKOCYTE ESTERASE ,URINE 1+ (NEGATIVE); NITRITE,URINE POSITIVE (NEGATIVE); PROTEIN,URINE DIPSTICK 2+ (NEGATIVE); URINE UROBILINOGEN 0.2 mg/dL (0.2 - 1)
[2019-09-12 23:52] LABS: BACTERIA,URINE MODERATE /HPF; EPITHELIAL CELLS,URINE FEW /LPF; RBC,URINE 0-5 /HPF (0-5); WBC,URINE (MAN) >50 /HPF (0-5)
[2019-09-13] VITALS (9 sets, daily range): BP systolic 142–193; BP diastolic 65–88
--- OUTSIDE RECORDS SUMMARY | 2019-09-13 00:04 | XMS REPORT | Clinical Summary ---
Author Author [facility] Organization [facility] Address Unknown Phone Unavailable Care Team Providers Care Community Resource Consultant Name Role Phone PCP Unavailable Allergies Comments [...] mouth daily. involving coronary bypass graft of [place] heart, angina presence unspecified Active atorvastatin (LIPITOR) 40 Take 1 tablet 60 tablet 2 11/23/201 mg tabletIndications: by mouth at 8 Coronary artery disease bedtime involving coronary bypass nightly. graft of [place] heart, angina presence unspecified Active nicotine (NICODERM [...] LMSW 01/31/2019 Clinical Case Mgt Varinder Slater, [facility] 01/30/2019 Clinical Case Herbert Tay MD [place], [...] artery disease involving coronary bypass graft of [place] heart, angina presence unspecified 01/21/2019 Hospital - Encounter 01/26/2019 after 09/12/2018 Family History Medical History Relation Name Comments [...] POC Routine 01/21/2019 12:52 PM CDT after 09/12/2018 Results * POCT GLUCOSE POC docked device (02/10/2019 7:46 AM CDT) Only the most recent of 26 results within the time period is included. Glucose POC 76 74 - 106 mg/dL [facility] Specimen Blood Performing Organization Address City/State/Zipcode Ph one Number [facility] [address] [place] [address] * CBC/Diff (02/10/2019 3:37 AM CDT) Only [...] Address City/State/Zipcode Ph one Number [facility] [address] [place] [phone] * Comprehensive Metabolic Panel (02/10/2019 3:37 AM [...] Phosphatase ALT 14 7 - 52 U/L [facility] AST 20 13 - 39 U/L [facility] Bilirubin, 0.2 0.2 - 1.2 mg/dL [facility] Total Total Protein 5.8 (L) 6.0 - 8.3 g/dL [facility] GFR, Estimated >90 >=90 mL/min/1.73 m2 [facility] Albumin 3.1 (L) 4.2 - 5.5 g/dL [facility] Anion Gap 10 5 - 16 mmol/L [facility] Specimen Blood Performing Organization Address [facility] one Number [facility] [address] [place] [address] [phone] * Phosphorus (02/10/2019 3:37 AM CDT) Only the most recent of 5 results within the time period is included. [facility] Phosphorus 3.8 2.5 - 5.0 mg/dL [facility] Specimen Blood Performing Organization Address [facility] one Number [facility] [address] [place] [address] * Magnesium (02/10/2019 3:37 AM CDT) Only the most recent of 6 results within the time period is included. [facility] Magnesium 1.6 (L) 1.9 - 2.7 mg/dL [facility] Specimen Blood Performing Organization Address [facility] one Number [facility] [address] [place] [address] * Calcium, Ionized (02/10/2019 3:37 AM CDT) Only the most recent of 4 results within the time period is included. Pathologist [facility] Calcium, 1.18 1.15 - 1.29 mmol/L [facility] Ionized Specimen Blood Performing Organization Address [facility] one Number [facility] [address] [place] [address] * Liver Profile (02/09/2019 8:55 AM CDT) [facility] Total Protein 5.6 (L) 6.0 - 8.3 g/dL [facility] Bilirubin, 0.3 0.2 - 1.2 mg/dL [facility] Total Alkaline 61 34 - 104 U/L [facility] Phosphatase AST 26 13 - 39 U/L [facility] Direct 0.1 0.0 - 0.2 mg/dL [facility] Bilirubin ALT 17 7 - 52 U/L [facility] Albumin 3.0 (L) 4.2 - 5.5 g/dL [facility] Specimen Blood Performing Organization Address [facility] one Number [facility] [address] [place] [address] * Basic Metabolic Panel (02/09/2019 8:55 AM CDT) Only the most recent of 7 results within the time period is included. Pathologist [facility] Sodium 139 136 - 145 mmol/L [facility] [...] [facility] Specimen Blood Performing Organization Address [facility] Ph one Number [facility] [address] [place] [address] * Urinalysis (02/09/2019 5:34 AM CDT) Only the most recent of 2 results within the time period is included. Color Yellow Colorless, Straw, [facility] Yellow Clarity Cloudy (A) Clear [facility] Spec Hunter, >1.035 (H) 1.001 - 1.035 [facility] [...] LABORATORY Ur Specimen Urine Performing Organization Address City/State/[facility] one Number [facility] [address] [place] [address] * Urine Culture (02/09/2019 5:34 AM CDT) [...] beta-lactamase producing Escherichia coli Performing Organization Address City/State/[facility] Ph one Number [facility] [address] [place] [address] * Differential, Manual (02/09/2019 3:29 AM CDT) [...] 0.08 K/uL [facility] Cells Counted [facility] Specimen Blood Performing Organization Address [facility] Ph one Number [facility] [address] [place] [address] * POCT VBG POC docked device (02/09/2019 2:42 AM CDT) Only the most recent of 6 results within the time period is included. pH, Noé POC 7.43 7.33 - 7.43 [facility] HCO3, Noé POC 23 22 - 26 mmol/L [facility] TCO2 POC 24 21 - 32 mmol/L [facility] PO2, Venous POC 54 50 - 75 mm Hg [facility] (BKR) pCO2,Noé POC 35.4 (L) 38 - 50 mmHg [facility] Base Deficit, -1 [facility] Noé POC Sánchez's Test YADY [facility] Sample Type IVEN [facility] Site RRADIA [facility] Lactic Acid POC 0.39 (L) 0.40 - 2.00 mmol/L [facility] % Sat, Noé POC 89 % [facility] Specimen Blood, venous Performing Organization Address [facility] Ph one Number [facility] [address] [place] [address] * CT ABDOMEN AND PELVIS CONTRAST (02/09/2019 [...] cystic lesions in the left kidney. This [facility] radiology report is a prelimi nary resident [...] lesions in the left ki dney. This [facility] radiology report is a preliminary resident dictation [...] MD, 02/08/2019 9:53 PM Performing Organization Address [facility] one Number SMS * PT/INR/PTT (02/08/2019 8:41 PM CDT) [facility] PT 12.5 11.8 - 15.0 Seconds [facility] SERENA INR 1.0 Refer to INR ranges [facility] TOR Comment: 2.0 - 3.0 for moderate intensity anticoagulation 2.5 - 3.5 for high intensity anticoagulation PTT 42.9 (H) 23.6 - 36.4 Seconds [facility] PATRIZIA GAXIOLA Comment: The recommended therapuetic range is an APTT 61-103 seconds which corresponds to 0.3-0.7 anti Xa u/ml. Specimen Blood Performing Organization Address [facility] one Number [facility] [address] [place] [address] [phone] * Blood Culture (02/08/2019 8:41 PM CDT) Only the most recent of 4 results within the time period is included. [facility] Blood Culture No growth 5 days [facility] Specimen Blood - Peripheral Blood Performing Organization Address [facility] one Number [facility] [address] [place] [address] * POCT TROPONIN I POC docked device (02/08/2019 7:45 PM CDT) Only the most recent of 2 results within the time period is included. Troponin POC 0.01 0.00 - 0.08 ng/mL [facility] RY Specimen Blood, venous Performing Organization Address [facility] Ph one Number [facility] [address] [place] [address] * POCT BMP POC docked device (02/08/2019 7:44 PM CDT) Only the most recent of 3 results within the time period is included. [facility] Sodium POC 137 136 - 145 mmol/L [facility] Potassium POC 4.5 3.5 - 5.1 mmol/L [facility] Chloride POC 100 98 - 107 mmol/L [facility] TCO2 POC 31 21 - 32 mmol/L [facility] Urea Nitrogen 29 (H) 7 - 18 mg/dL [facility] POC Creatinine POC 1.1 0.6 - 1.3 mg/dL [facility] Glucose POC 95 74 - 106 mg/dL [facility] Ionized Calcium 1.18 1.15 - 1.29 mmol/L [facility] POC GFR, Estimated 66 (L) >=90 mL/min/1.73 m2 [facility] Hemoglobin POC 12.2 12 - 16 g/dL [facility] Hematocrit POC 36.0 (L) 37.0 - 47.0 % [facility] Specimen Blood, venous Performing Organization Address [facility] one Number [facility] [address] [place] [address] * PT/INR (01/22/2019 4:12 AM CDT) [facility] PT 15.0 11.8 - 15.0 Seconds [facility] 1.2 Refer to INR ranges [facility] Comment: 2.0 - 3.0 for moderate intensity anticoagulation 2.5 - 3.5 for high intensity anticoagulation Specimen Blood Performing Organization Address [facility] one Number [facility] [address] [place] [phone] * Hemoglobin A1C (01/22/2019 4:11 AM CDT) [facility] Hemoglobin A1c 7.2 (H) 4.3 - 6.1 % [facility] Estimated 160 (H) 70 - 110 mg/dL [facility] Average Glucose Specimen Blood Performing Organization Address City/State/Zipcode Ph one Number [facility] [address] [place] [address] * XRAY CHEST 2 VIEWS (01/21/2019 6:03 PM CDT) Specimen Impressions Performed At IMPRESSION: SMS 1. Persistent right lower lung reticu lar opacities, which may represent scarring or subsegmental atelectasis, w ith possible superimposed consolidation, possibly due to infectio n or aspiration pneumonitis. 2. Postsurgical changes in the right lung are unchanged compared to prior. This [facility] radiology report is a prelimi nary resident [...] ng are unchanged compared to prior. This [facility] radiology report is a preliminary resident dictation [...] At EXAM: XR LEFT ANKLE 3 VIEWS [facility] EXAM: XR LEFT FOOT 3 VIEWS DATE: [...] MD, 01/21/2019 5:24 PM Performing Organization Address [facility] one Number [facility] * Purple Top (01/21/2019 1:14 PM CDT) Hold Specimen [id number] [facility] Specimen Blood Performing Organization Address [facility] one Number [facility] [address] [place] [address] * Gold Top Tube (01/21/2019 1:14 PM CDT) Only the most recent of 2 results within the time period is included. Hold Specimen [id number] [facility] Specimen Blood Performing Organization Address [facility] one Number [facility] [address] [place] [address] * 12 LEAD EKG (01/21/2019 12:52 PM CDT) [facility] Test Date: 2019-01-21 Pat Name: MARLEN NOLAND Department: Room: [facility] Gender: M Designer/Writer: [id number] : 1945 Requested By: HERBERT Hager Order Number: [id number] Edward BIGGS: Yvan Coley Measurements Intervals [place] Rate: 130 P: DE: 0 QRS: 105 QRSD: 110 T: 67 QT: 327 QTc: 482 Interpretive Statements ATRIAL FIBRILLATION WITH RAPID VENTRICULAR RESPONSE MARKED RIGHT AXIS DEVIATION [QRS AXIS > 100] RIGHT BUNDLE BRANCH BLOCK [120+ ms QRS DURATION, UPRIGHT V1, 40+ ms S IN I/aVL/V4/V5/V6] Electronically Signed On 01-23-2019 16:13:27 CDT by Yvan Coley Specimen Performing Organization Address City/State/Zipcode Ph one Number SMS after 09/12/2018 Additional Health Concerns Last Indicated Resolved Time Infection Onset Date 02/09/2019 Escherichia coli (E. 02/05/2019 Coli) MDR Advance Directives Date Inactivated Comments Code Status Date Activated 02/10/2019 1:53 PM Full Code 02/09/2019 2:35 AM 01/26/2019 3:20 PM Full Code 01/21/2019 5:16 PM 11/23/2017 1:35 PM Full Code 11/20/2017 8:20 AM
--- OUTSIDE RECORDS SUMMARY | 2019-09-13 00:05 | XMS REPORT | Clinical Summary ---
Author Author Ayo Caodaism Organization [place] [facility] Address Unknown Phone Unavailable Care Team Providers Care Data Sme Name Role Phone System, Provider Not In [...] hours as needed for nausea or vomiting. 07/10/2019 Discontinued (Discontinued b y another clinician) spironolactone Take 50 mg by 0 (ALDACTONE) 50 MG tablet mouth daily. 07/10/2019 Discontinued (Discontinued b y another clinician) tamsulosin (FLOMAX) 0.4 Take 0.4 mg 0 mg capsule,extended by mouth release 24hr daily. 09/27/2018 sulfamethoxazole-trimetho Take 1 tablet 20 tablet [...] 20 Take 1 tablet 30 tablet 0 mg tablet (20 mg total) 9 by [...] Dx); Abdominal pain, unspecified abdominal location 07/10/2019 [facility] dicine - Encounter 07/11/2019 Annetta Serna 09/17/2018 Patient Quality Outreach Valente Thomas MD BRONCHOSCOPY 09/14/2018 Surgery Gastroenterology Dinesh Hartmann MD Allencherril, Paul Joseph, MD Pneumonia of right lower lobe due to inf ectious organism (HCC) (Primary Dx); Severe sepsis (HCC); Fever, unspecified fever cause; Hypotension, unspecified hypotension type; GARRET (acute kidney injury) (HCC); Non-traumatic rhabdomyolysis 09/10/2018 [facility] dicine - Encounter 09/17/2018 after 09/12/2018 Immunizations Name Administration Dates Next Due Pneumococcal [...] POC GLUCOSE Routine 09/12/2018 6:31 AM CDT after 09/12/2018 Results * Estimated GFR (07/11/2019 8:47 AM CDT) Only the most recent of 5 results within the time period is included. [facility] Estimated GFR 88 mL/min/1.73 m2 [facility] Comment: [facility] G1 >=90 Normal or high G2 60-89 [...] 2014. Specimen Plasma specimen Performing Organization Address City/[facility] Ph one Number [facility] [address] [place] [address] PATHOLOGY AND GENOMIC MEDICINE [address] * Magnesium level (07/11/2019 8:47 AM CDT) [facility] Magnesium 1.60 1.60 - 2.40 mg/dL [facility] Specimen Plasma specimen Performing Organization Address City/[facility] Ph one Number [facility] [place] [address] PATHOLOGY AND [facility] MEDICINE [address] * Basic metabolic panel (07/11/2019 8:47 AM CDT) Only the most recent of 2 results within the time period is included. [facility] Sodium 141 135 - 150 mEq/L [facility] Potassium 3.8 3.5 - 5.0 mEq/L [facility] Chloride 105 98 - 112 mEq/L [facility] CO2 24 24 - 31 mmol/L [facility] Anion gap 12@ANIO 7 - 15 mEq/L [facility] BUN 12 7 - 18 mg/dL [facility] Creatinine 0.80 0.70 - 1.20 mg/dL [facility] Glucose 108 (H) 65 - 100 mg/dL [facility] Calcium 9.2 8.8 - 10.2 mg/dL [facility] Specimen Plasma specimen Performing Organization Address City/State[facility] Ph one Number [facility] [address] [place] [address] PATHOLOGY AND GENOMIC MEDICINE [facility] [address] [place] [address] HOSPITAL * POC glucose (07/11/2019 6:33 AM CDT) Only the most recent of 30 results within the time period is included. POC glucose 95 65 - 100 mg/dL [facility]EN Comment: JUDAISM [employer] Electric[employer] Name: [facility] Device ID: [id number] Specimen Performing Organization Address [facility] Ph one Number [facility] [place] [address] PATHOLOGY AND GENOMIC MEDICINE [place] [id number] [place] [address] HOSPITAL * ECG 12 lead (07/10/2019 1:06 PM CDT) Ventricular 88 [facility] MUSE rate Atrial rate 88 [facility] MO interval 174 [facility] QRSD interval 140 [facility] QT interval 408 [facility] QTC interval 493 [facility] P axis 1 61 [facility] QRS axis 1 111 [facility] M[facility] T wave axis 77 [facility] EKG impression Sinus rhythm with occasional H MUSE premature ventricular complexes-Right bundle branch block-Left posterior fascicular block-^^^ Bifascicular block ^^^-Abnormal ECG-In automated comparison with ECG of 10-SEP-2018 22:27,-premature ventricular complexes are now present-T wave inversion now evident in Anterior leads- Specimen Narrative Performed At This result has an attachment that is n ot available. Performing Organization Address City/[facility] Ph one Number [facility] MUSE [address] [place] [address] * Lactic acid level, SEPSIS - Now and repeat 2x every 3 hours (07/10/2019 6:49 AM CDT) Only the most recent of 3 results within the time period is included. Lactic acid 0.8 0.5 - 2.2 mmol/L [facility] Specimen Blood Performing Organization Address City/State[facility] Ph one Number [facility] [address] [place] [address] PATHOLOGY AND GENOMIC MEDICINE [facility] [address] [place] [address] HOSPITAL * Troponin (07/10/2019 6:49 AM CDT) Only the most recent of 3 results within the time period is included. Troponin 0.006 0.000 - 0.040 ng/mL [facility] Comment: JUDAISM In patients suspected of BUCYRUS having a myocardial HOSPITAL infarction, along with [...] ng/mL Specimen Plasma specimen Performing Organization Address City/State/[facility] Ph one Number [facility] [address] [place] [address] PATHOLOGY AND GENOMIC MEDICINE [facility] [address] [place] [address] HOSPITAL * Urine culture (07/10/2019 3:12 AM CDT) Urine culture Duplicate organism-no further [facility] isolate workup JUDAISM >10-5 cfu/ml HOSPITAL (A) Comment: Specimen Information Specimen Source: Urine Specimen Site: Clean catch Urine culture Escherichia coli AYO isolate >10-5 cfu/ml JUDAISM The performance HOSPITAL characteristics of this assay on this isolate were validated by the Microbiology Laboratory at [facility]. This source has not been approved by the U.S. Food and Drug Administration. The results are not intended to be used as the sole means for clinical diagnosis or patient management. The Microbiology Laboratory is authorized under the clinical Laboratory Improvement Amendments of 1988 (CLIA-88) to perform high complexity testing. This isolate is a learning specialist of ESBL (extended spectrum beta lactamase). This [...] mcg/mL: Susceptible Escherichia coli Performing Organization Address [facility] Ph one Number [facility] DEPARTMENT OF [address] [place] [address] PATHOLOGY AND GEN[facility]IC MED[facility] [address] [place] [id number] [place] [address] * Urinalysis screen and microscopy, with reflex to culture (07/10/2019 2:09 AM CDT) Specimen site Clean catch [facility] Color, UA Yellow [facility] Appearance, UA Cloudy [facility] Specific 1.010 1.001 - 1.035 [facility] gravity, UA [facility] pH, UA 5.0 5.0 - 8.5 [facility] Protein, UA Negative Negative [facility] Glucose, UA Negative Negative [facility] Ketones, UA Negative Negative [facility] Bilirubin, UA Negative Negative [facility] Blood, UA Small (A) Negative [facility] Nitrite, UA Negative Negative [facility] Urobilinogen, Negative <2.0 [facility] Leukocyte Large (A) Negative [facility] esterase, [facility] WBC, UA 91 (H) 0 - 1 /HPF [facility] RBC, UA 5 (A) 0 - 5 /HPF [facility] Bacteria, UA Trace None seen [facility] Yeast, UA None seen [facility] Yeast with None seen [facility] Specimen Urine Performing Organization Address City/State/[place] Ph one Number [facility] [address] [place] [address] PATHOLOGY AND GENOMIC MEDICINE [facility] [address] [place] [address] [facility] * CT Abdomen Pelvis Wo Contrast (07/10/2019 1:18 AM CDT) Specimen Narrative Performed At CT ABDOMEN PELVIS WO CONTRAST HM [facility] CLINICAL INDICATION: abdominal pain TECHNIQUE: Multidetector [...] tenderness is advised to exclude recent injury. [facility]-[id number] Procedure Note Hm Interface, Radiology Results Incoming [...] tenderness is advised to exclude recent injury. [facility]-[id number] Performing Organization Address City/State/Zipcode Ph one Number [facility] [address] [place] [address] * CBC with platelet and differential (07/10/2019 1:05 AM CDT) Only the most recent of 4 results within the time period is included. WBC 8.4 4.2 - 11.0 k/uL [facility] RBC 3.88 (L) 4.04 - 5.86 m/uL [facility] HGB 11.4 (L) 13.0 - 17.3 g/dL [facility] HCT 34.8 34.0 - 45.0 % [facility] MCV 89.7 80.0 - 98.0 fL [facility] MCH 29.4 27.0 - 34.0 pg [facility] MCHC 32.8 31.5 - 36.5 g/dL [facility] RDW - SD 45.9 37.0 - 51.0 fL [facility] MPV 9.4 7.4 - 10.4 fL [facility] Platelet count 252 150 - 400 k/uL [facility] Nucleated RBC 0.00 /100 WBC [facility] Neutrophils 70.2 (H) 36.0 - 66.0 % [facility] Lymphocytes 17.9 (L) 24.0 - 44.0 % [facility] Monocytes 7.8 (H) 0.0 - 6.0 % [facility] Eosinophils 3.5 0.0 - 6.0 % [facility] Basophils 0.5 0.0 - 1.2 % [facility] Immature 0.1 0.0 - 1.0 % [facility] granulocytes [facility] Specimen Blood Performing Organization Address City/State/Zipcode Ph one Number [facility] DEPARTMENT OF [address] [place] [address] PATHOLOGY AND GENOMIC MEDICINE [facility] [address] [place] [address] HOSPITAL * B natriuretic peptide (07/10/2019 1:05 AM CDT) BNP 78 0 - 100 pg/mL [facility] Specimen Blood Performing Organization Address City/State/[facility] Ph one Number [facility] OF [address] [place] [address] PATHOLOGY AND GENOMIC MEDICINE [facility] [address] [place] [address] * Lipase level (07/10/2019 1:05 AM CDT) Pathologist [facility] Lipase 16 13 - 60 U/L [facility] Specimen Plasma specimen Performing Organization Address City/[facility] Ph one Number [facility] [place] [address] PATHOLOGY AND GENOMIC MEDICINE [address] * Comprehensive metabolic panel (07/10/2019 1:05 AM CDT) Only the most recent of 3 results within the time period is included. Pathologist [facility] Sodium 133 (L) 135 - 150 mEq/L [facility] Potassium 4.1 3.5 - 5.0 mEq/L [facility] Chloride 97 (L) 98 - 112 mEq/L [facility] CO2 24 24 - 31 mmol/L [facility] Anion gap 12@ANIO 7 - 15 mEq/L [facility] BUN 14 7 - 18 mg/dL [facility] Creatinine 0.90 0.70 - 1.20 mg/dL [facility] Glucose 138 (H) 65 - 100 mg/dL [facility] Calcium 8.9 8.8 - 10.2 mg/dL [facility] Protein 7.2 6.3 - 8.3 g/dL [facility] Albumin 3.4 (L) 3.5 - 5.0 g/dL [facility] A/G ratio 0.9 0.7 - 3.8 [facility] Alkaline 76 0 - 129 U/L [facility] phosphatase [facility] AST 14 10 - 50 U/L [facility] ALT 8 5 - 50 U/L [facility] Total bilirubin <0.3 0.2 - 1.2 mg/dL [facility] Specimen Plasma specimen Performing Organization Address City/State/Zipcode Ph one Number [facility] [address] [place] [address] PATHOLOGY AND GENOMIC MEDICINE [facility] [address] [place] [address] HOSPITAL * XR Chest 1 Vw Portable (09/16/2018 8:13 AM CDT) Only the most recent of 2 results within the time period is included. Specimen Narrative Performed At SINGLE VIEW CHEST, 09/16/2018 [facility] Clinical History: Pneumonia. Technique: Single, portable AP view kit st. Comparison: 12/16/2018 Impression: 1. Stable right [...] size. 4. Overall, no interval change from . Procedure Note Interface, Radiology Results Incoming - [...] change from September 15. Performing Organization Address City/State/[facility] Ph one Number [facility] [address] [facility] [place] [address] * Blood culture, aerobic & anaerobic (09/14/2018 2:37 PM CDT) Only the most recent of 2 results within the time period is included. Pathologist [facility] Blood culture No growth after 5 days of BOURNE isolate incubation. JUDAISM Comment: HOSPITAL Specimen Information Specimen Source: Blood Specimen Site: L H Specimen Blood Performing Organization Address City/[facility] Ph one Number [facility] DEPARTMENT OF [address] [place] [address] PATHOLOGY AND GENOMIC MEDICINE [place] JUDAISM [address] [place] [address] HOSPITAL * Surgical pathology request (09/14/2018 12:53 PM CDT) [facility] OF PATHOLOGY AND GENOMIC MEDICINE Surgical See link below for PDF Lab [facility] DE[facility] TMENT pathology Report OF PATHOLOGY report AND GENOMIC MEDICINE Result status This is Final Report for [facility] ENT [id number] OF PATHOLOGY AND GENOMIC MEDICINE Specimen Performing Organization Address [facility] one Number [facility] OF [address] [place] [address] PATHOLOGY AND GENOMIC MEDICINE * Cytology (non-gynecological) request (09/14/2018 12:19 PM CDT) Pathologist [facility] OF PATHOLOGY AND GENOMIC MEDICINE Cytology See link below for PDF Lab [facility] T[facility] (non-gynecologi Report OF PATHOLOGY kay) report AND GENOMIC MEDICINE Result status This is Final Report for [facility] ENT [id number] OF PATHOLOGY AND GENOMIC MEDICINE Specimen Performing Organization Address [facility] one Number [facility] OF [address] [place] [address] PATHOLOGY AND GENOMIC MEDICINE * Respiratory culture (09/14/2018 11:58 AM CDT) Pathologist [facility] Respiratory No normal oral nikki isolated. [place] culture isolate Normal oral nikki and [facility]ISM (A) HOSPITAL Comment: Specimen Information Specimen Source: Bronchial Washing Specimen Site: Right and left lobes Respiratory Escherichia coli [facility] culture isolate Few JUDAISM This isolate is a learning specialist of HOSPITAL ESBL (extended spectrum beta lactamase). [...] mcg/mL: Resistant Escherichia coli Performing Organization Address [facility] Ph one Number [facility] DEPARTMENT OF [address] [place] [address] PATHOLOGY AND GENOMIC MEDICINE [facility] JUDAISM [address] [place] [address] * Gram stain (09/14/2018 11:58 AM CDT) Gram stain No WBC's or organisms seen. [facility] isolate Comment: JUDAISM Specimen Information HOSPITAL Specimen Source: Bronchial Washing Specimen Site: Right and left lobes Specimen Bronchial washing - Right and left lobes Performing Organization Address [facility] Ph one Number [facility] DEPARTMENT OF [address] [place] [address] PATHOLOGY AND GENOMIC MEDICINE [address] * CT Chest Wo Contrast (09/13/2018 [...] There is no acute skeletal finding . [id number] Procedure Note Hm Interface, Radiology Results Incoming - 09/13/2018 4:04 [...] 8. There is no acute skeletal finding. [id number] Performing Organization Address City/State/Zipcode Ph one Number [facility] [address] [place] [address] after 09/12/2018 Additional Health Concerns Resolved Time Infection Noted Time ESBL (C ) 07/18/2019 8:20 AM CDT Insurance Type Payer Benefit Subscriber ID Effective Phone Address Plan / Dates Group HMO [employer]US TEXANPLUS xxxxxxxxx [id number] WOODS Advance Directives For more information, please contact: [phone] Patient Vocational Rehab Consultant Explanation Type Date Recorded Advance Directives, 09/06/2017 10:04 PM Living Will and Medical Power of [employer] Helper Advance Directives, 09/10/2018 10:52 PM Living Will and Medical Power of [employer] Helper Advance Directives, 07/10/2019 1:17 AM Living Will and Medical Power of [employer] Helper Date Inactivated Comments Code Status Date Activated 09/17/2018 8:43 PM Full Code 09/11/2018 12:10 AM Code Status decision reached by: Patient
--- OUTSIDE RECORDS SUMMARY | 2019-09-13 00:05 | XMS REPORT | Clinical Summary ---
Author Author RANULFO [facility] Organization [facility] Address Unknown Phone Unavailable Care Team Providers Care Orthodontic Technician Name Role Phone Darnell Vivar MD PCP [...] Take 1 tablet 30 tablet 1 0 //201 160 MG tablet (160 mg 3 total) [...] General Internal Me dicine 03/03/2019 Travel after 09/12/2018 Family History Medical History Relation [...] Taken Vital Sign Reading 03/05/2019 7:34 AM PROCUREMENT SPECIALIST Blood Pressure 150/78 03/05/2019 10:00 AM PROCUREMENT SPECIALIST Pulse 86 03/05/2019 7:34 AM PROCUREMENT SPECIALIST Temperature 36.8 C (98.2 F) 03/05/2019 10:00 AM PROCUREMENT SPECIALIST Respiratory Rate 18 03/05/2019 10:00 AM PROCUREMENT SPECIALIST Oxygen Saturation 95% - Inhaled Oxygen - [...] Implanted Type Area Manufactur er 10/06/2013 [id number] / / [id number] System,Anastomosis Proximal Cardiovasc N/A: Aorta CA RDICA [place] - [id number] [employer] Implanted: Qty: 2 on 10/06/2012 by Eric Barillas MD Procedures Comments Procedure Name Priority Date/Time Associated Diag nosis RHYTHM STRIP - SCAN 03/08/2019 8:52 AM PROCUREMENT SPECIALIST REPORT OF PROCEDURE - 03/08/2019 ENDOSCOPY SCAN 8:52 AM PROCUREMENT SPECIALIST POCT-GLUCOSE METER Routine 03/05/2019 7:30 AM PROCUREMENT SPECIALIST CBC W/PLT COUNT & AUTO Routine 03/05/2019 DIFFERENTIAL 5:46 AM PROCUREMENT SPECIALIST CBC W/PLT COUNT & AUTO Routine 03/05/2019 DIFFERENTIAL 5:46 AM PROCUREMENT SPECIALIST BASIC METABOLIC PANEL (7) Routine 03/05/2019 5:46 AM PROCUREMENT SPECIALIST POCT-GLUCOSE METER Routine 03/04/2019 9:10 PM CDT [...] ms QTC Calculatio n(Bazett) 477 ms P [place] 15 degrees R [place] 70 degrees T [place] 42 degrees Normal sinus rhythm Right bundle [...] (7) STAT 03/03/2019 12:12 PM CDT after 09/12/2018 Results * RHYTHM STRIP - SCAN (03/08/2019 8:52 AM PROCUREMENT SPECIALIST) Narrative Performed At This result has an attachment that is n ot available. * EKG-SCANNED (03/08/2019 8:52 AM PROCUREMENT SPECIALIST) Narrative Performed At This result has an attachment that is n ot available. * POC-Glucose meter (03/05/2019 7:30 AM PROCUREMENT SPECIALIST) Only the most recent of 7 results within the time period is included. POC-Glucose Meter 140 (H)Comment: : TESTED AT 70 - 110 mg/dL [facility] [address] [facility] [id number]: Coding Technician/Director Of Corporate Sponsorships ID = [id number] for Edilson Early Specimen Blood Performing Organization Address City/State/Zipcode Ph one Number [facility] [address] [place], [place] [address] [facility] * CBC with platelet count + automated diff (03/05/2019 5:46 AM PROCUREMENT SPECIALIST) Only the most recent of 3 results within the time period is included. WBC 6.5 3.5 - 10.5 K/L [facility] RBC 3.61 (L) 4.63 - 6.08 M/L [facility] Hemoglobin 10.4 (L) 13.7 - 17.5 GM/DL [facility] Hematocrit 32.2 (L) 40.1 - 51.0 % [facility] MCV 89.2 79.0 - 92.2 fL [facility] MCH 28.8 25.7 - 32.2 pg [facility] MCHC 32.3 32.3 - 36.5 GM/DL [facility] RDW 15.1 (H) 11.6 - 14.4 % [facility] Platelets 229 150 - 450 K/CU MM [facility] MPV 10.0 9.4 - 12.4 fL [facility] nRBC 0 0 - 0 /100 WBC [facility] % Neutros 50 % [facility] % Lymphs 36 % [facility] % Monos 8 % [facility] % Eos 5 % [facility] % Baso 1 % [facility] # Neutros 3.29 1.78 - 5.38 K/L [facility] # Lymphs 2.34 1.32 - 3.57 K/L [facility] # Monos 0.49 0.30 - 0.82 K/L [facility] # Eos 0.34 0.04 - 0.54 K/L [facility] # Baso 0.04 0.01 - 0.08 K/L [facility] Immature 1 0 - 1 % [facility] Granulocytes-[facility] Specimen Blood Performing Organization Address City/[facility] Ph one Number [address] [facility] * Basic Metabolic Panel (03/05/2019 5:46 AM PROCUREMENT SPECIALIST) Only the most recent of 3 results within the time period is included. Sodium 135 (L) 136 - 145 meq/L [facility] Potassium 4.6 3.5 - 5.1 meq/L [facility] Chloride 101 98 - 107 meq/L [facility] CO2 27 22 - 29 meq/L [facility] BUN 11 7 - 21 mg/dL [facility] Creatinine 0.71 0.57 - 1.25 mg/dL [facility] Glucose 120 (H) 70 - 105 mg/dL [facility] Calcium 9.0 8.4 - 10.2 mg/dL [facility] EGFR 109Comment: ESTIMATED GFR IS mL/min/1.[address] [facility] NOT ACCURATE CREATININE [facility] CLEARANCE IN PREDICTING GLOMERULAR FILTRATION RATE. ESTIMATED GFR IS NOT APPLICABLE FOR DIALYSIS PATIENTS. Specimen Blood Performing Organization Address City/[facility] Ph one Number [address] [facility] * Hepatic function panel (03/04/2019 2:35 AM CDT) Protein, Total 7.0 6.0 - 8.3 gm/dL [facility] Albumin 3.7 3.5 - 5.0 g/dL [facility] Total Bilirubin 0.2 0.2 - 1.2 mg/dL [facility] Bilirubin, Direct 0.1 0.1 - 0.5 mg/dL [facility] Alkaline Phosphatase 79 40 - 150 U/L [facility] AST 11 5 - 34 U/L [facility] ALT 6 6 - 55 U/L [facility] Specimen Blood Performing Organization Address City/State/Zipcode Ph one Number [address] [facility] * Urinalysis w/Microscopic + Reflex to Culture (03/03/2019 1:55 PM CDT) Color, UA Light Yellow [facility] Clarity, UA Hazy [facility] Specific [place], UA 1.010 1.001 - 1.035 [facility] pH, UA 5.5 5.0 - 8.0 [facility] Protein, UA Negative Negative [facility] Glucose, UA Negative Negative [facility] Ketones, UA Negative Negative [facility] Bilirubin, UA Negative Negative [facility] Blood, UA Negative Negative [facility] Nitrite, UA Positive (A) Negative [facility] Leukocytes, UA Large (A) Negative [facility] Urobilinogen, UA 0.2 0.2 - 1.0 mg/dL [facility] RBC, UA 4 /HPF [facility] WBC, UA 65 /HPF [facility] Specimen Source [facility] Specimen Urine Performing Organization Address [facility] Ph one Number [place] [address] [facility] * Rapid drug screen, urine (03/03/2019 1:55 PM CDT) Barbiturate Screen Negative Negative [facility] Benzodiazepine Screen Positive (A) Negative [facility] Cocaine (Metab.) Screen Negative Negative [facility] Methadone Screen Negative Negative [facility] Opiate Screen Positive (A) Negative [facility] Cannabinoid Screen Negative Negative [facility] Amph/Methamph Screen Negative Negative [facility] Phencyclidine Screen Negative Negative [facility] Specimen Urine Narrative Performed At [facility] Cocaine 300 ng/mL [facility] Wqjljiwwpsg06 n g/mL Lgggpqctehcqds548 ng/mL Barbiturate 200 ng/ mL Vaogtluschcde54 ng/ mL Opiate3 00 ng/mL Methadone 300 n g/mL Amphetamine/ 1000 ng/mL Methamphetamine This assay provides an unconfirmed qual itative test result for the clinical management of patients in emergency sit uations. Chain of custody not maintained. Some jbyf-pkw-lvfyvlz medications, as w ell as adulterants, may cause inaccurate results. Clinical correlation should be applied. A more comprehensive drug screen or confirmation of a detected dr arroyo may be performed upon request. Performing Organization Address City/[facility] Ph one Number [address] [facility] * Urine culture (03/03/2019 1:55 PM CDT) Result 90-99,000 col/mL Escherichia [facility] coli (A)Comment: ESBL Positive [facility] Specimen Urine Antibiotic Method Susceptibility Organism Amikacin [...] <=20: Susceptible Escherichia coli Performing Organization Address [facility] one Jing [address] [facility] * Blood Culture - Routine (Left Venipuncture) (03/03/2019 1:07 PM CDT) Only the most recent of 2 results within the time period is included. Result No growth in 5 days [facility] Specimen Blood Performing Organization Address City/[facility] one Jing [address] [facility] * CT brain without IV contrast (03/03/2019 12:50 PM CDT) Specimen Narrative Performed At FINAL REPORT [employer] CT, BRAIN, WITHOUT CONTRAST INDICATION: headache WEAKNESS [...] Report Verified Date/Time: 9 12:37:45 Reading Location: [facility] Radiolo gy Reading Room Procedure Note Interface, [...] Report Verified Date/Time: 03/03/2019 12:37:45 Reading Location: [facility] Radiology Reading Room Performing Organization Address City/State/Zipcode Ph one Number GE RIS * ECG 12 lead (03/03/2019 12:24 PM CDT) Specimen Narrative Performed At Ventricular Rate 93 BPM [facility] Atrial Rate 93 BPM P-R Interval 166 ms QRS Duration 134 ms Q-T Interval 384 ms QTC Calculation(Bazett) 477 ms P [place] 15 degrees R [place] 70 degrees T [place] 42 degrees Normal sinus rhythm Right bundle [...] 384 ms QTC Calculation(Bazett) 477 ms P [place] 15 degrees R [place] 70 degrees T [place] 42 degrees Normal sinus rhythm Right bundle branch block Nonspecific ST abnormality Prolonged QT Abnormal ECG When compared with ECG of 10-JUN-2018 12:59, T wave inversion now evident in Anterior leads Confirmed by Andrea SRINIVASAN, SCOTTY ([id number]) on 03/04/2019 7:53:41 AM Performing Organization Address [facility] one Number GE MUSE * POC-Lactic Acid, Venous (03/03/2019 12:19 PM CDT) POC-Lactic Acid, Venous 1.7Comment: [facility] - 1.7 mmol/L [place] [id number] [facility] Specimen Blood Performing Organization Address [facility] one Number [address] [facility] * Troponin I (03/03/2019 12:12 PM CDT) Troponin I <0.01 0.00 - 0.03 ng/mL [facility] Specimen Blood Narrative Performed At Troponin I (TnI) levels must be interpreted in the co ntext of the presenting [facility] symptoms and the clinical findings. Elevated TnI leve ls indicate myocardial [facility] damage, but are not specific for ischem ic heart disease. Elevated TnI levels are seen in patients with other cardiac con ditions (including myocarditis and congestive heart failure), and slight T nI elevations occur in patients with other conditions, including sepsis, leny al failure, acidosis, acute neurological disease, and persistent tachyarrhythmia . Performing Organization Address [facility] one Number [address] [facility] * B-type Natriuretic Factor (BNP) (03/03/2019 12:12 PM CDT) BNP 60 0 - 100 pg/mL [facility] Specimen Blood Performing Organization Address City/[facility] Ph one Number [facility] [address] [place], [place] [address] [facility] * Magnesium (03/03/2019 12:12 PM CDT) Magnesium 1.4 (L) 1.6 - 2.6 mg/dL [facility] Specimen Blood Performing Organization Address [facility] Ph one Number [facility] [address] [place], [place] [address] [facility] after 09/12/2018 Insurance Payer Benefit Subscriber ID Type Phone Address Plan / Group [employer] xxxxxxxxx Maps HMO ALL Contracted [id number] [facility] Advance Directives For more information, please contact: [address] [phone] Date Inactivated Comments Code Status Date Activated [...]
--- OUTSIDE RECORDS SUMMARY | 2019-09-13 00:09 | XMS REPORT ---
Author Author [facility] t Organization [facility] t Address 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 Name Role Phone AGA BRIDGES MD PCP Unavailable Shani BIGGS, Art Lemon Attphys Lzu Plummer MD Attphys Corazon LEAVITTCHING Attphys Unavailable MAIKOL ARGUELLES Attphys Unavailable Christos BIGGS, Ryan Zaman Attphys Maribell BIGGS, Filipe Attphys Saundra Hartman MD Attphys Gato MAK, Anil Duensa Attphys Unavailable Bryon BIGGS, Jose Mabry Attphys Bryon [facility] [place] Varinder Attphys Unavailable Rosaline BIGGS, Madan Ponce Attphys Latosha BIGGS, Anil Pompa Attphys Shahbaz BIGGS, Dinesh Attphys Danisha BIGGS, Thanh Kerr Attphys [phone] Madan Serna Attphys Unavailable Martha BIGGS, Valente Attphys LILY HASKINS Attphys Unavailable OFORDEME, OCTAVIANO TOMLINSON Attphys Unavailable SHERINECINDI Attphys Unavailable BERBERIAN, MOSHE Admphys Unavailable LEAVITT, Corazon LARSEN Admphys Unavailable SUAREZ, GASTON Admphys Unavailable HEIDY, YESENIA Admphys Unavailable BAAKLINI, HARITHA ARMANDO Admphys Unavailable MAKENZIE MIJARESICHA Admphys Unavailable ACHARI, KAYLI SATURNINO Admphys Unavailable Payers Payer Name Policy Type Policy Number Effective Date Expiration Date Nataliya winkler [facility] [id number] xxxxxxxxx 2018 00:00:00 Ayo Lennon Plus [id number] [facility] Problems Condition Name Condition Details Condition Category Status Onset Date Resolution Date Last Treatment Date Treating Clinician Comments Source Complicated UTI (urinary tract infection) Complicated UTI (urinary tract infection) Disease Active 2019-07-10 00:00:00 H nyla Higgins Pyelonephritis Pyelonephritis Disease Active 2019-02-10 00:00:00 [facility] UTI (urinary tract infection) UTI (urinary tract infection) Disease Active 2019-02-08 00:00:00 [facility] AMS (altered mental status) AMS (altered mental status) Disease Active 2019-02-08 00:00:00 [facility] Chronic pain Chronic pain Disease Active 2019-01-23 00:00:00 [facility] Skin ulcer of left ankle, limited to breakdown of skin Skin ulcer of left ankle, limited to breakdown of skin Disease Active 2019-01-23 00:00:00 [facility] Benzodiazepine dependence Benzodiazepine dependence Disease Ac tive 2019-01-23 00:00:00 [facility] Opiate dependence Opiate dependence Disease Active 2019-01-23 00:00:00 [facility] HTN (hypertension) HTN (hypertension) Disease Active 2019-01-23 00:00:0 0 [facility] Atrial fibrillation Atrial fibrillation Disease Active 2019-01-23 00:00 :00 [facility] Alzheimer's dementia Alzheimer's dementia Disease Active 00:00:00 [facility] Type 2 diabetes mellitus Type 2 diabetes mellitus Disease Acti ve 2019-01-23 00:00:00 [facility] Pneumonia of right lower lobe due to infectious organi sm Pneumonia of right lower lobe due to infectious organism Disease Active 2018-09-11 00:00:00 Ayo Higgins Disorientation Disorientation Disease Active 2017-11-20 00:00:00 [facility] Endotracheally intubated Endotracheally intubated Disease Acti ve 2017-11-20 00:00:00 [facility] Acute hypercapnic respiratory failure Acute hypercapnic resp iratory failure Disease Active 2017-11-20 00:00:00 [facility] History of lung cancer History of lung cancer Disease Active 2017-11-20 00:00:00 [facility] CAD (coronary artery disease) CAD (coronary artery disease) Disease Active 2017-11-20 00:00:00 [facility] Smoking Smoking Disease Active 2017-11-20 00:00:00 [facility] First time seizure First time seizure Disease Active 2017-09-06 00:00:0 0 Ayo Higgins Syncope Syncope Problem Active [facility] Opioid use, unspecified, uncomplicated Opioid use, unspecifi ed, uncomplicated Disease Active [facility] Allergies, Adverse Reactions, Alerts Allergy Name Allergy Type Status Severity Reaction(s) Onset Date Inacti ve Date Treating Clinician Comments Source Penicillins DA Active [place] 2019-03-31 00:00:00 [facility] adhesive DA Active U 2019-03-31 00:00:00 [facility] levofloxacin DA Active U 2019-03-31 00:00:00 [facility] Fentanyl Allergy to Substance Active Mild 2019-03-08 00:00:00 [facility] Levofloxacin Allergy to Substance Active Unknown 2019-03-08 00:00: 00 [facility] Levofloxacin Propensity to adverse reactions to drug Active Rash 2017-11-20 00:00:00 [facility] Levofloxacin Propensity to adverse reactions to drug Active 2017-09-06 00:00:00 Ayo fu Penicillins DA Active [place] 2016-01-02 00:00:00 [facility] adhesive DA Active U 2016-01-02 00:00:00 [facility] levofloxacin DA Active U 2016-01-02 00:00:00 [facility] Adhesive Propensity to adverse reactions to drug Active Rash 2013-06-27 00:00:00 WEARING FENTANYL PATCH-LEFT SKIN RAW, RED, ITCHY Ayo Higgins Family History Family Member Diagnosis Comments Start Date Stop Date Source Natural father Leukemia [facility] Natural mother Lung cancer [facility] Natural sister Cataracts [facility] Social History Social Habit Start Date Stop Date Quantity Comments Source History of tobacco use Cigarette Smoker Ayo Higgins Sex Assigned At [facility] Cigarettes smoked current (pack per day) - Reported 00:00:00 2019-02-09 00:00:00 [facility] Cigarette pack-years 2019-02-09 00:00:00 2019-02-09 00:00:00 [facility] Alcohol intake 2019-02-09 00:00:00 2019-02-09 00:00:00 [facility] Tobacco Comment 2019-01-21 00:00:00 2019-01-21 00:00:00 have mya morales smoking for 40 years [facility] Smoking Status Start Date Stop Date Source Current every day smoker 2019-02-09 00:00:00 [facility] Medications Ordered Medication Name Filled Medication Name Start Date Stop Da te Current Medication? Ordering Clinician Indication Dosage Frequency Signature (SIG) Comments Components Source gabapentin (NEURONTIN) 300 mg capsule 2019-07-11 16:45:18 Yes 600mg Q.[id number] Take 600 mg by mouth 3 (three) times a day. Ayo Higgins glimepiride (AMARYL) 4 MG tablet 2019-07-11 16:45:18 Yes 4mg QD Take 4 mg by mouth daily before breakfast. Radha Higgins lisinopril (PRINIVIL,ZESTRIL) 2.5 mg tablet 2019-07-11 16:45:18 Yes 2.5mg QD Take 2.5 mg by mouth daily. Ayo Higgins metFORMIN (GLUCOPHAGE) 1,000 mg tablet 2019-07-11 16:45:18 Yes 1000mg Q.5D Take 1,000 mg by mouth 2 (two) times a day with meals. Ayo Higgins NIFEdipine XL (PROCARDIA XL) 30 MG 24 hr tablet 2019-07-11 16:45 :18 Yes 30mg Q12H Take 30 mg by mouth every 12 (twelve) hours. Ayo Higgins pantoprazole (PROTONIX) 40 MG EC tablet 2019-07-11 16:45:18 Yes 40mg QD Take 40 mg by mouth daily. Ayo Methyuliet grande aspirin (ECOTRIN) 81 MG enteric coated tablet 2019-07-11 16:45:1 8 Yes 81mg QD Take 81 mg by mouth daily. Chloe Higgins baclofen (LIORESAL) 10 MG tablet 2019-07-11 16:45:18 Yes 10mg Q8H Take 10 mg by mouth every 8 (eight) hours as needed. Ayo Higgins atorvastatin (LIPITOR) 40 MG tablet 2019-07-11 16:45:18 Yes 40mg QD Take 40 mg by mouth daily. Ayo Higgins rOPINIRole (REQUIP) 2 MG tablet 2019-07-11 16:45:18 Yes 2mg Q.5D Take 2 mg by mouth 2 (two) times a day. Ayo Higgins nitroglycerin (NITROSTAT) 0.4 MG SL tablet 2019-07-11 16:45:[address] 0.4 mg under the tongue every 5 (five) minutes a s needed for chest pain. Ayo Higgins ALPRAZolam (XANAX) 2 MG tablet 2019-07-11 16:45:18 Yes 2mg Q.[id number] Take 2 mg by mouth 3 (three) times a day as needed for anxiety. Ayo Higgins apixaban (ELIQUIS) 5 mg tablet 2019-07-11 16:45:18 Yes 5mg Q.5D Take 5 mg by mouth 2 (two) times a day. Ayo Higgins clopidogreL (PLAVIX) 75 mg tablet 2019-07-11 16:45:18 Yes 75mg QD Take 75 mg by mouth daily. Ayo Higgins diltiazem CD (CardIZEM CD) 120 MG 24 hr capsule 2019-07-11 16:45 :18 Yes 120mg QD Take 120 mg by mouth daily. Ayo Higgins fenofibrate (LOFIBRA) 160 MG tablet 2019-07-11 16:45:18 Yes 160mg QD Take 160 mg by mouth daily. [facility] finasteride (PROSCAR) 5 mg tablet 2019-07-11 16:45:18 Yes 5mg QD Take 5 mg by mouth daily. Ayo Higgins HYDROcodone-acetaminophen (NORCO) 10-325 mg per tablet 2019-07-11 16:45:18 Yes [id number] 1{tbl} Q4H Take 1 tablet b y mouth every 4 (four) hours as needed for moderate pain .acute pain. Ayo grande levETIRAcetam (KEPPRA) 500 MG tablet 2019-07-11 16:45:18 Yes 1000mg Q.5D Take 1,000 mg by mouth 2 (two) times a day. Ayo Higgins metoprolol succinate XL (TOPROL-XL) 25 mg 24 hr tablet 2019-07-11 16:45:18 Yes 25mg QD Take 25 mg by mouth daily. Ayo Higgins multivitamin (THERAGRAN) tablet 2019-07-11 16:45:18 Yes 1{tbl} QD Take 1 tablet by mouth daily. Ayo Higgins traZODone (DESYREL) 100 MG tablet 2019-07-11 16:45:18 Yes 100mg QD Take 100 mg by mouth nightly. Ayo estevez albuterol (ACCUNEB) 1.25 mg/3 mL nebulizer solution 07-10 16:45:18 Yes 1{ampule} Q4H Take 1 ampule by nebulization every 4 (four) hours as needed for wheezing. Ayo Higgins ipratropium (ATROVENT HFA) 17 mcg/actuation inhaler 07-10 16:45:18 Yes 2{puff} Q6H Inhale 2 puffs every 6 (six) hours. Ayo Higgins ondansetron (ZOFRAN) 4 MG tablet 2019-07-11 16:45:18 Yes 4mg Q8H Take 4 mg by mouth every 8 (eight) hours as needed for nausea or vomiting. Ayo Higgins cefuroxime (CEFTIN) 500 MG tablet 2019-07-11 00:00:00 2019 04:59:00 No 500mg Q.5D Take 1 tablet (5 00 mg total) by mouth 2 (two) times a day for 7 days. [facility] tamsulosin (FLOMAX) 0.4 mg capsule,extended release 24hr 2019-07-10 20:52:02 2019-07-10 00:00:00 No .4mg QD Take 0.4 mg by mouth daily. [facility] spironolactone (ALDACTONE) 50 MG tablet 20:51:49 2019-07-10 00:00:00 No 50mg QD Take 50 mg by mouth daily. [facility] (LEXAPRO) 20 mg tablet 2019-02-10 16:47:58 Yes 20mg QD Take 20 mg by mouth daily. [facility] NIFEDIPINE CR 30 mg 24 hr delayed released tablet 2019-02-10 16:47:58 Yes 30mg QD Take 30 mg by mouth daily. [facility] metFORMIN (GLUCOPHAGE) 1,000 mg tablet 2019-02-10 16:47:58 Yes 1000mg Take 1,000 mg by mouth 2 times daily (with meals). [facility] glimepiride (AMARYL) 4 mg tablet 2019-02-10 16:47:58 Yes 4mg QD Take 4 mg by mouth every morning (before breakfast). [facility] ALPRAZolam (XANAX) 0.25 mg tablet 2019-02-10 16:47:58 Yes .25mg Take 0.25 mg by mouth nightly at bedtime as needed for Sleep. [facility] tamsulosin (FLOMAX) 0.4 mg extended release capsule 2018-05 16:47:58 Yes .4mg QD Take 0.4 mg by mouth daily. [facility] Donepezil 10 mg disintegrating tablet 2019-02-10 16:47:58 Y es 10mg Take 10 mg by mouth at bedtime nightly. [facility] metoprolol succinate (TOPROL XL) 50 mg extended release tabl et 2019-02-10 16:47:58 Yes 50mg QD Take 50 mg by mouth daily. [facility] lisinopril (PRINIVIL, ZESTRIL) 2.5 mg tablet 2019-02-10 16:47:58 Yes 2.5mg QD Take 2.5 mg by mouth daily. [facility] sulfamethoxazole-trimethoprim (BACTRIM DS) 800-160 mg per ta blet 2019-02-10 00:00:00 2019-02-24 04:59:00 No [id number] 1{tbl} Q.5D Take 1 tablet by mouth 2 times daily for 13 days. [facility] sulfamethoxazole-trimethoprim (BACTRIM DS) 800-160 mg per ta blet 2019-02-10 00:00:00 2019-02-10 00:00:00 No [id number] 1{tbl} Q.5D Take 1 tablet by mouth 2 times daily for 13 days. [facility] sulfamethoxazole-trimethoprim (BACTRIM DS) 800-160 mg per ta blet 2019-02-08 00:00:00 2019-02-10 00:00:00 No [id number] 1{tbl} Q.5D Take 1 tablet by mouth 2 times daily for 10 days. [facility] cefpodoxime (VANTIN) 200 mg tablet 2019-02-05 00:00:00 01-10-11 00:00:00 No [id number] 200mg Q.5D Take 1 tablet by mouth 2 times daily for 10 days. [facility] cefpodoxime (VANTIN) 200 mg tablet 2019-02-05 00:00:00 201 01-10-06 00:00:00 No [id number] 200mg Q.5D Take 1 tablet by mouth 2 times daily for 10 days. [facility] Levetiracetam (KEPPRA) 1,000 mg tablet 2019-01-02 6 15:47:28 2019-01-26 00:00:00 No 1000mg Take 1,000 mg by mouth. [facility] SPIRONOLACTONE OR 2019-01-26 15:47:27 2019-01-26 00:00:00 No 50mg Take 50 mg by mouth. [facility] pantoprazole (PROTONIX) 40 mg delayed release tablet 2019-01-26 15:47:27 2019-01-26 00:00:00 No 40mg QD Take 40 mg by mouth daily. [facility] baclofen (LIORESAL) 10 mg tablet 2019-01-26 15:47:27 2019-01 00:00:00 No 10mg Take 10 mg by mouth 3 times daily. [facility] HYDROmorphone (DILAUDID) 4 mg tablet 2019-01-26 15:47: 27 2019-01-26 00:00:00 No 4mg Take 4 mg by mouth every 6 hours as need ed for Pain. [facility] nitroGLYCERIN (NITROSTAT) 0.4 mg sublingual tablet 2019-01-26 15:47:27 2019-01-26 00:00:[address] 0.4 mg under tongue every 5 minutes as needed for Chest pain Dissolve 1 tablet under the tongue every 5 minutes as needed, up to 3 times. If chest pain persists, call 911 . [facility] hydrALAZINE (APRESOLINE) 50 mg tablet 2019-01-26 15:47 :27 2019-01-26 00:00:00 No 50mg Take 50 mg by mouth 3 times daily. [facility] traZODone (DESYREL) 100 mg tablet 2019-01-26 15:47:27 2018 00:00:00 No 100mg Q.5D Take 100 mg by mouth 2 times daily. [facility] clopidogrel (PLAVIX) 75 mg tablet 2019-01-26 15:47:27 2018 00:00:00 No 75mg Take 75 mg by mouth. [facility] diltiazem (CARDIZEM) 120 mg tablet 2019-01-26 15:47:27 201 01-09-26 00:00:00 No 120mg Take 120 mg by mouth. [facility] amoxicillin-clavulanate (AUGMENTIN) 875-125 mg per tablet 2019-01-26 00:00:00 2019-01-29 04:59:00 No [id number] 1{tbl} Q.5D Take 1 tablet by mouth 2 times daily for 3 doses. [facility] amoxicillin-clavulanate (AUGMENTIN) 875-125 mg per tablet 2019-01-26 00:00:00 2019-01-26 00:00:00 No [id number] 1{tbl} Q.5D Take 1 tablet by mouth 2 times daily for 3 doses. [facility] ondansetron (ZOFRAN-ODT) 4 mg disintegrating tablet 2019-01-22 19:30:57 2019-01-22 00:00:00 No 4mg Take 4 mg by mouth every 8 hours as needed for Nausea. [facility] gabapentin (NEURONTIN) 600 mg tablet 2019-01-10 00:00:00 Ye s 600mg Take 600 mg by mouth. [facility] HYDROcodone-acetaminophen (NORCO) 10-325 mg tablet 2018-12 00:00:00 Yes TAKE ONE TABLET BY MOUTH EVERY 4 HOURS A S NEEDED FOR PAIN [facility] finasteride (PROSCAR) 5 mg tablet 2018-10-18 00:00:00 Yes TAKE ONE TABLET BY MOUTH EVERY DAY [facility] citalopram (CELEXA) 10 mg tablet 2018-09-28 00:00:00 2019-01 00:00:00 No 20mg Take 20 mg by mouth. [facility] predniSONE (DELTASONE) 20 mg tablet 2018-09-18 00:00:0 0 2018-10-19 04:59:00 No 20mg QD Take 1 tablet (20 mg total) by mouth dari ly for 30 days. Ayo Higgins hydrALAZINE (APRESOLINE) 50 MG tablet 2018-09-17 00:00 :00 2018-10-18 04:59:00 No 50mg Q.5D Take 1 tablet ( 50 mg total) by mouth 2 (two) times a day for 30 days. Ayo Higgins ipratropium-albuterol (DUO-NEB) 0.5-2.5 mg/3 mL nebulizer 2018-09-17 00:00:00 2018-10-18 04:59:00 No 3mL Q.[id number] Take 3 mL by nebulization every 6 (six) hours while awake for 30 days. Ayo Higgins guaiFENesin (MUCINEX) 600 mg tablet extended release 12hr 2018-09-17 00:00:00 2018-10-18 04:59:00 No 1200mg Q.5D Take 2 tablets (1,200 mg total) by mouth 2 (two) times a day for 30 days. Ayo Higgins sulfamethoxazole-trimethoprim (BACTRIM DS) 800-160 mg per ta blet 2018-09-17 00:00:00 2018-09-28 04:59:00 No 1{tbl} Q.5D Take 1 tablet by mouth every 12 (twelve) hours for 10 days. [facility] albuterol (PROVENTIL) 2.5 mg /3 mL (0.083 %) nebulizer solut ion 2018-08-22 00:00:00 Yes 2.5mg Inhale 2.5 mg by mouth. [facility] rOPINIRole (REQUIP) 2 mg tablet 2018-07-15 00:00:00 00:00:00 No 2mg Take 2 mg by mouth. [facility] aspirin (ASPIRIN) 81 mg chewable tablet 2017-11-24 00:00:00 Yes [id number] 81mg QD Chew and swallow 1 tablet by mouth daily. [facility] nicotine (NICODERM CQ) 14 mg/24 hr patch 2017-11-24 00:00:00 Yes [id number] 1{patch} QD Apply 1 Patch to skin as directed daily. [facility] atorvastatin (LIPITOR) 40 mg tablet 2017-11-23 00:00:00 Yes [id number] 40mg Take 1 tablet by mouth at bedtime nightly. [facility] ipratropium (ATROVENT HFA) 17 mcg/actuation inhaler 05-11 00:00:00 Yes 2{puff} Inhale 2 Puffs by mouth. [facility] fenofibrate (LOFIBRA) 160 mg tablet 2012-10-12 00:00:0 0 2019-01-26 00:00:00 No TAKE 1 TABLET BY MOUTH EVERY DAY IN THE MORNING [facility] Immunizations Ordered Immunization Name Filled Immunization Name Date Status Comments Source Pneumococcal Conjugate 13-Valent 2018-09-17 00:00:00 Compl eted [facility] Vital Signs Vital Name Observation Time Observation Value Comments Source Systolic blood pressure 2019-07-11 12:00:36 116 mm[Hg] Ayo iHggins Diastolic blood pressure 2019-07-11 12:00:36 53 mm[Hg] Ayo Higgins Heart rate 2019-07-11 12:00:36 77 /min Ayo Higgins Body temperature 2019-07-11 12:00:36 36.39 Lainey Reagan Higgins Respiratory rate 2019-07-11 12:00:36 18 /min Reagan Higgins Oxygen saturation in Arterial blood by Pulse oximetry 07-10 12:00:36 97 /min Ayo Higgins Body height 2019-07-10 16:02:00 177.8 cm Ayo Higgins Body weight 2019-07-10 16:02:00 74.9 kg Ayo Higgins BMI 2019-07-10 16:02:00 23.69 kg/m2 [facility] O[facility] saturation in Arterial blood by Pulse oximetry 2018-05 12:47:00 95 /min [facility] Systolic blood pressure 2019-02-10 12:42:00 136 mm[Hg] [facility] Diastolic blood pressure 2019-02-10 12:42:00 64 mm[Hg] [facility] Heart rate 2019-02-10 12:42:00 73 /min [facility] Body temperature 2019-02-10 12:42:00 36.44 Lainey Alexia [facility] Respiratory rate 2019-02-10 12:42:00 20 /min Alexia [facility] Body height 2019-02-09 10:42:00 177.8 cm [facility] Body weight 2019-02-09 10:42:00 71.85 kg [facility] BMI 2019-02-09 10:42:00 22.73 kg/m2 [facility] Procedures Procedure Date / Time Performed Performing Clinician Sour e BASIC METABOLIC PANEL 2019-07-11 13:47:00 Riri Pearson MAGNESIUM LEVEL 2019-07-11 13:47:00 Riri Pearson ESTIMATED GFR 2019-07-11 13:47:00 Riri Pearson POC GLUCOSE 2019-07-11 11:33:00 Moshe Plummer Jew POC GLUCOSE 2019-07-11 11:00:00 Moshe Plummer Jew POC GLUCOSE 2019-07-11 02:43:00 Moshe Plummer Jew POC GLUCOSE 2019-07-10 23:29:00 Moshe Plummer Jew POC GLUCOSE 2019-07-10 20:54:00 Moshe Plummer ECG 12-LEAD 2019-07-10 18:06:30 Riri Pearson POC GLUCOSE 2019-07-10 16:51:00 Moshe Plummer LACTIC ACID LEVEL, SEPSIS - NOW AND REPEAT 2X EVERY 3 HOURS 2019-07-10 11:49:00 Ion Mcleod TROPONIN 2019-07-10 11:49:00 Ion Mcleod LACTIC ACID LEVEL, SEPSIS - NOW AND REPEAT 2X EVERY 3 HOURS 2019-07-10 09:06:00 Ion Mcleod TROPONIN 2019-07-10 09:06:00 Ion Mcleod URINE CULTURE 2019-07-10 08:12:00 Ion Mcleod URINALYSIS SCREEN AND MICROSCOPY, WITH REFLEX TO CULTURE 202 07:09:[address] ABDOMEN PELVIS WO CONTRAST 2019-07-10 06:18:16 Ion Mcleod HC COMPLETE BLD COUNT W/AUTO DIFF 2019-07-10 06:05:00 Shawn Mcleod COMPREHENSIVE METABOLIC PANEL 2019-07-10 06:05:00 Ion Mcleod LACTIC ACID LEVEL, SEPSIS - NOW AND REPEAT 2X EVERY 3 HOURS 2019-07-10 06:05:00 Ion Mcleod LIPASE LEVEL 2019-07-10 06:05:00 Ion Mcleod TROPONIN 2019-07-10 06:05:00 Ion Mcleod B NATRIURETIC PEPTIDE 2019-07-10 06:05:00 Ion Mcleod [place] ESTIMATED GFR 2019-07-10 06:05:00 Ion Mcleod Computed tomography of brain without radiopaque contrast 201 01-11-06 00:00:00 AMIRAH LECHUGA [facility] GLUCOSE POC 2019-02-10 12:46:00 Saundra Hartman CBC/DIFF 2019-02-10 08:37:00 Roma Lundberg [facility] COMPREHENSIVE METABOLIC PANEL 2019-02-10 08:37:00 Miguel Lundberg [facility] MAGNESIUM 2019-02-10 08:37:00 Roma Lundberg [facility] CALCIUM, IONIZED 2019-02-10 08:37:00 Roma Lundberg [facility] PHOSPHORUS 2019-02-10 08:37:00 Roma Lundberg [facility] CBC 2019-02-10 08:37:00 Roma Lundberg [facility] GLUCOSE POC 2019-02-10 01:29:00 [facility]man [facility] GLUCOSE POC 2019-02-09 22:09:00 [facility] GLUCOSE POC 2019-02-09 17:54:00 Puravath, Saundra Jin [facility] GLUCOSE POC 2019-02-09 16:49:00 [facility]ra samson [facility] LIVER PROFILE 2019-02-09 13:55:00 Hanif, Alma Jin [facility] MAGNESIUM 2019-02-09 13:55:00 Hanif, Alma Jin [facility] PHOSPHORUS 2019-02-09 13:55:00 HanAlma resendiz [facility] BASIC METABOLIC PANEL 2019-02-09 13:55:00 [facility] GLUCOSE POC 2019-02-09 13:53:00 PuravathSaundra [facility] GLUCOSE POC 2019-02-09 13:16:00 Purchapin, Phoebedouglas Jin [facility] GLUCOSE POC 2019-02-09 10:36:00 [facility]ra Hartman [facility] URINALYSIS 2019-02-09 10:34:00 HanAlma resendiz [facility] URINALYSIS 2019-02-09 10:34:00 Stephani Dixon [facility] URINE CULTURE 2019-02-09 10:34:00 [facility]chie Banks [facility] GLUCOSE POC 2019-02-09 09:37:00 PurSaundra samson [facility]alt [facility] IP CONSULT WITH INSIGHT 2019-02-09 09:36:26 Archie Banks [facility] CALCIUM, IONIZED 2019-02-09 08:29:00 [facility] CBC/DIFF 2019-02-09 08:29:00 [facility] CBC 2019-02-09 08:29:00 [facility] DIFFERENTIAL, MANUAL-WAM 2019-02-09 08:29:00 Alma Bingham [facility] GLUCOSE POC 2019-02-09 07:58:00 Saundra Hartman [facility] VBG POC 2019-02-09 07:42:[address] ABDOMEN AND PELVIS CONTRAST 2019-02-09 06:17:00 Abel Dixon [facility] VBG POC 2019-02-09 03:54:00 Austyn Sher [facility] XRAY CHEST 1 VIEW 2019-02-09 02:17:24 Stephani Dixon [facility] CBC/DIFF 2019-02-09 01:41:00 Stephani Dixon [facility] PT/INR/PTT 2019-02-09 01:41:00 Stephani Dixon [facility] CBC 2019-02-09 01:41:00 Stephani Dixon [facility] BLOOD CULTURE 2019-02-09 01:41:00 Stephani Dixon [facility] BLOOD CULTURE 2019-02-09 01:40:00 Stephani Dixon [facility] VBG POC 2019-02-09 00:47:00 Unknown, Provider [facility] TROPONIN I POC 2019-02-09 00:45:00 Unknown, Provider [facility] BMP POC 2019-02-09 00:44:00 Unknown, Provider [facility] URINE CULTURE 2019-02-05 16:06:00 Fidel Vazquez [facility] URINE CULTURE 2019-02-05 15:46:00 [facility] 2019-02-05 14:14:00 Fidel Vazquez [facility] URINALYSIS 2019-02-05 14:14:00 [facility] POC 2019-02-05 13:52:00 Clotilde Slater [facility] VBG POC 2019-02-05 13:52:00 Clotilde Slater [facility] XRAY CHEST 1 VIEW 2019-02-05 13:50:08 Fidel Vazquez [facility] CBC/DIFF 2019-02-05 13:45:00 [facility] CBC 2019-02-05 13:45:00 [facility] 2019-01-26 13:08:00 [facility] 2019-01-26 08:47:00 Prosper Carmona [facility] BASIC METABOLIC PANEL 2019-01-26 08:47:00 [facility] CBC 2019-01-26 08:47:00 Prosper Carmona [facility] GLUCOSE POC 2019-01-25 21:48:00 Aletha Reina [facility] GLUCOSE POC 2019-01-25 17:43:00 Aletha Reina [facility] GLUCOSE POC 2019-01-25 13:31:00 Aletha Reina [facility] CBC/DIFF 2019-01-25 08:37:00 [facility] CBC 2019-01-25 08:37:00 [facility]on[facility] BASIC METABOLIC PANEL 2019-01-25 08:36:00 Prosper Carmona [facility] MAGNESIUM 2019-01-25 08:36:00 [facility] NUTRITION CONSULT ASSESSMENT 2019-01-25 02:04:18 [facility] GLUCOSE POC 2019-01-25 01:47:00 [facility] GLU[facility] 2019-01-24 21:53:00 [facility] GLUCOSE POC 2019-01-24 16:51:00 [facility] GLUCOSE POC 2019-01-24 12:46:00 [facility] BASIC METABOLIC PANEL 2019-01-24 10:19:00 [facility] CALCIUM, IONIZED 2019-01-24 10:19:00 [facility] CBC/DIFF 2019-01-24 10:19:00 [facility] MAGNESIUM 2019-01-24 10:19:00 [facility] PHOSPHORUS 2019-01-24 10:19:00 [facility] CBC 2019-01-24 10:19:00 [facility] GLUCOSE POC 2019-01-24 02:19:00 [facility] GLUCOSE POC 2019-01-23 22:28:00 [facility] IP CONSULT TO PHYSICAL THERAPY 2019-01-23 19:54:48 Pia [facility] GLUCOSE POC 2019-01-23 17:09:00 [facility] GLUCOSE POC 2019-01-23 12:31:00 [facility] BASIC METABOLIC PANEL 2019-01-23 09:20:00 [facility] MAGNESIUM 2019-01-23 09:20:00 [facility] PHOSPHORUS 2019-01-23 09:20:00 [facility]per [facility] CALCIUM, IONIZED 2019-01-23 09:20:00 MathewProsper horvath [facility] CBC/DIFF 2019-01-23 09:20:00 [facility] CBC 2019-01-23 09:20:00 [facility] GLUCOSE POC 2019-01-23 01:51:00 [facility] GLUCOSE POC 2019-01-22 22:14:00 [facility] 2019-01-22 17:13:00 [facility] IP CONSULT TO SPEECH LANGUAGE PATHOLOGY 2019-01-22 14:48:08 Mathew Bkshawn Ma [facility] GLUCOSE POC 2019-01-22 13:40:00 [facility] PT/INR 2019-01-22 09:12:00 [facility] CBC/DIFF 2019-01-22 09:11:00 [facility] BASIC METABOLIC PANEL 2019-01-22 09:11:00 [facility] MAGNESIUM 2019-01-22 09:11:00 [facility] PHOSPHORUS 2019-01-22 09:11:00 [facility] HEMOGLOBIN A1C 2019-01-22 09:11:00 Maria Ines Paz h CBC 2019-01-22 09:11:00 [facility] CHEST 2 VIEWS 2019-01-21 23:03:28 Bret Burns jessie BASIC METABOLIC PANEL 2019-01-21 22:37:00 Bret Burns [facility] IP CONSULT TO PHYSICAL THERAPY 2019-01-21 22:16:52 Bret Burns [facility] XRAY FOOT 3 VIEWS MIN 2019-01-21 21:40:42 Rene [facility] XRAY ANKLE 3 VIEW MIN 2019-01-21 21:40:42 ReneRudyDenvercedric [facility] VBG POC 2019-01-21 20:25:00 Herbert Waggoner h CBC/DIFF 2019-01-21 18:14:00 Denver López lt CBC 2019-01-21 18:14:00 Denver López lt RAINBOW DRAW 2019-01-21 18:14:00 Herbert Waggoner h GOLD TOP TUBE 2019-01-21 18:14:00 Herbert Waggoner h PURPLE TOP TUBE 2019-01-21 18:14:00 Herbert Waggoner h BLOOD CULTURE 2019-01-21 18:14:00 Denver López [facility] XRAY CHEST 1 VIEW 2019-01-21 18:09:00 Denver López [facility]alth BMP POC 2019-01-21 17:54:00 Herbert Waggoner h VBG POC 2019-01-21 17:54:00 Herbert Waggoner h 12 LEAD EKG 2019-01-21 17:52:44 Herbert Waggoner h TROPONIN I POC 2019-01-21 17:52:00 Herbert Waggoner h POC GLUCOSE 2018-09-17 16:16:00 Cirilo Raman [facility] COMPLETE BLD COUNT W/AUTO DIFF 2018-09-17 13:15:00 Cirilo Richardson COMPREHENSIVE METABOLIC PANEL 2018-09-17 13:15:00 Cirilo Raman ESTIMATED GFR 2018-09-17 13:15:00 Cirilo Raman POC GLUCOSE 2018-09-17 11:39:00 Cirilo Raman POC GLUCOSE 2018-09-17 11:30:00 Cirilo Raman POC GLUCOSE 2018-09-17 03:11:00 Cirilo Raman POC GLUCOSE 2018-09-16 21:08:00 Cirilo Ramna Jew POC GLUCOSE 2018-09-16 16:52:00 Cirilo Raman XR CHEST 1 VW PORTABLE 2018-09-16 13:13:03 Valente Thomas Jew POC GLUCOSE 2018-09-16 11:15:00 Cirilo Raman POC GLUCOSE 2018-09-16 01:39:00 Cirilo Ramanist XR CHEST 1 VW PORTABLE 2018-09-15 23:06:04 Valente Thomas Jew POC GLUCOSE 2018-09-15 21:02:00 Cirilo Raman POC GLUCOSE 2018-09-15 17:12:00 Cirilo Raman POC GLUCOSE 2018-09-15 12:37:00 Cirilo Raman BASIC METABOLIC PANEL 2018-09-15 11:40:00 Ishan Templeton HC COMPLETE BLD COUNT W/AUTO DIFF 2018-09-15 11:40:00 Ishan Her ESTIMATED GFR 2018-09-15 11:40:00 Ishan Templeton POC GLUCOSE 2018-09-15 02:33:00 Cirilo Raman POC GLUCOSE 2018-09-14 21:34:00 Cirilo Raman BLOOD CULTURE, AEROBIC & ANAEROBIC 2018-09-14 19:37:00 Cirilo Cannon BLOOD CULTURE, AEROBIC & ANAEROBIC 2018-09-14 19:32:00 Cirilo Cannon POC GLUCOSE 2018-09-14 17:53:00 Cirilo Raman SURGICAL PATHOLOGY REQUEST 2018-09-14 17:53:00 Jackie Raman CYTOLOGY (NON-GYNECOLOGICAL) REQUEST 2018-09-14 17:19:00 Cirilo Hatfield RESPIRATORY CULTURE 2018-09-14 16:58:00 Valente Thomas GRAM STAIN 2018-09-14 16:58:00 [facility] BRON[facility]OS[facility] 2018-09-14 16:30:00 [facility] POC GLUCOSE 2018-09-14 15:05:00 JustinriCirilo swanson Jew POC GLUCOSE 2018-09-14 10:33:00 AllensooriCirilo swanson Jew POC GLUCOSE 2018-09-14 01:21:00 AllensooriCirilo swanson Jew POC GLUCOSE 2018-09-13 21:34:[address] CHEST WO CONTRAST 2018-09-13 20:45:48 Valente Thomas n Jew POC GLUCOSE 2018-09-13 17:40:00 AllencherriCirilo swanson Jew POC GLUCOSE 2018-09-13 12:46:00 AllencherriCirilo swanson Jew POC GLUCOSE 2018-09-13 01:30:00 JustinriCirilo swanson Jew POC GLUCOSE 2018-09-12 22:36:00 AllencherriCirilo swanson Jew POC GLUCOSE 2018-09-12 16:00:00 Cirilo Raman HC COMPLETE BLD COUNT W/AUTO DIFF 2018-09-12 13:42:00 Cirilo Richardson COMPREHENSIVE METABOLIC PANEL 2018-09-12 13:42:00 Cirilo Raman ESTIMATED GFR 2018-09-12 13:42:00 Cirilo Raman POC GLUCOSE 2018-09-12 11:31:00 Cirilo Raman Plan of Care Planned Activity Planned Date Details Comments Source Future Scheduled Test [code = ] Future Scheduled Test [code = ] Future Scheduled Test [code = ] Future Scheduled Test [code = ] Future Scheduled Test [code = ] Future Scheduled Test [code = ] Future Scheduled Test [code = ] Future Scheduled Test [code = ] Future Scheduled Test [code = ] Future Scheduled Test [code = ] Future Scheduled Test [code = ] Future Scheduled Test [code = ] Encounters Start Date/Time End Date/Time Encounter Type Admission Type [facility] Care Department Encounter ID Source 2019-02-09 00:57:[address] [facility] 12 [id number] [facility] 2019-01-23 13:25:[address] [facility] [id number] [facility] 2019-01-21 17:51:[address] [facility] [id number] [facility] 2019-01-21 12:46:30 Inpatient [facility] [id number] [facility] 2017-11-20 01:59:05 Inpatient [facility] [id number] [facility] 2019-07-10 00:00:00 2019-07-11 00:00:00 Outpatient JEB PLUMMER [facility] [id number] [facility] 2019-03-27 00:00:00 2019-03-27 00:00:[address] [facility] [id number] [facility] 2019-03-08 15:09:00 2019-03-09 14:51:00 Discharged Inpatient (obs) 1 SUZIE LEAVITT [facility] [id number] [facility] 2019-03-06 00:00:00 2019-03-06 00:00:[address] [facility] [id number] [facility] 2019-02-08 20:44:40 2019-02-08 20:44:[address] [facility] [id number] [facility] 2019-02-08 19:40:48 2019-02-08 19:40:48 Inpatient [facility] [id number] [facility] 2019-02-08 00:00:00 2019-02-08 00:00:[address] [facility] [id number] [facility] 2019-02-05 08:41:04 2019-02-05 08:41:[address] [facility] [id number] [facility] 2019-02-05 07:55:05 2019-02-05 07:55:05 Emergency [facility] [id number] [facility] 2019-01-21 16:26:05 2019-01-21 16:26:[address] [facility] [id number] [facility] 2019-01-21 12:58:30 2019-01-21 12:58:[address] [facility] [id number] [facility] Results Test Description Test Time Test Comments Results Result Comments Source ECG 12 lead 2019-07-12 16:42:30 Test Item Ventricular rate (test code = 253) 88 Atrial rate (test code = 255) 88 LA interval (test code = 266) 174 QRSD interval (test code = 260) 140 QT interval (test code = 264) 408 QTC interval (test code = 265) 493 P axis 1 (test code = 267) 61 QRS axis 1 (test code = 268) 111 T wave axis (test code = 270) 77 EKG impression (test code = 273) Sinus rhythm with occ asional premature ventricular complexes-Right bundle branch block-Left posterior fascicular block- ^^^ Bifascicular block ^^^-Abnormal ECG-In automated comparison with ECG of -2018 22:27,-premature ventricular complexes are now present-T wave inversion now evident in Anterior leads- [facility] [id number] 14:15:18* Test Item Value Reference Range Interpretation Comments Sodium (test code = 2951-2) 141 135- 150 mEq/L Potassium (test code = 2823-3) 3.8 3.5- 5.0 mEq/L Chloride (test code = 5-0) 105 98- 112 mEq/L CO2 (test code = 8-9) 24 mmol/L 24-31 Anion gap (test code = 89699-0) 12@ANIO 7- 15 mEq/L BUN (test code = 3094-0) 12 mg/dL 7-18 Creatinine (test code = 2160-0) 0.80 mg/dL 0.7-1.2 Glucose (test code = 2345-7) 108 mg/dL 65-100 H Calcium (test code = 04406-6) 9.2 mg/dL 8.8-10.2 Lab Interpretation (test code = 74284-6) Abnormal [place] [facility] [id number] 14:15:18* Test Item Value Reference Range Interpretation Comments Magnesium (test code = 74976-0) 1.60 mg/dL 1.6-2.4 [place] MethodistEstimated [id number] 14:15:17* Test Item Value Reference Range Interpretation Comments Estimated GFR (test code = 5488) 88 mL/min/1.73 m2 Catergory Units InterpretationG1 >=90 Normal or highG2 60-89 Mildly husrzxmniT0o 45-59 Mildly to moderately jazuiojqhT3m 30-44 Moderately to severely decreasedG4 15-29 Severely decreasedG5 <15 Kidney failureThe eGFR was calculated using the Chronic Kidney Disease Epidemiology Collaboration (CKD-EPI) equation. Interpretation is based on recommendations of the National Kidney Foundation-Kidney Disease Outcomes Quality Initiative (NKF-KDOQI) published in 2014. [facility] [id number] 11:37:52* Test Item Value Reference Range Interpretation Comments POC glucose (test code = 01688-2) 95 mg/dL 65-100 Entertainment Musician Name: Saima Goff ID: [id number] [place] [id number] 12:39:01* Test Item Value Reference Range Interpretation Comments Troponin (test code = 93008-5) 0.006 ng/mL 0-0.04 In patients suspected of having a myocardial infarction, along with all other appropriate clinical measures and actions including ECG and other diagnostics as appropriate, measure Ultra TnI at 0 hrs and at 3 hrs.Myocardial infarction VERY LIKELYThe 0 hr TnI level is > 0.10 ng/mL Robert cardial infarction LIKELYThe 0 hr TnI level is > 0.04 ng/mL and 3 hr level is increased or decreased by at least 0.020 ng/mL Myocardi al infarction VERY UNLIKELYBoth the 0 hr and 3 hr TnI levels <= 0.04 ng/mL(within normal limits) OR 0 hr is > 0.04 ng/mL and 3 hr is increased OR decreased by less than 0.020 ng/mL [facility], SEPSIS - Now and repeat 2x every 3 hours 2019-07-10 12:14:33* Test Item Value Reference Range Interpretation Comments Lactic acid (test code = 50736-1) 0.8 mmol/L 0.5-2.2 [place] MethodistUrinalysis screen and microscopy, with reflex to culture 2019-07-10 08:12:40* Test Item Value Reference Range Interpretation Comments Specimen site (test code = 1934109) Clean catch Color, UA (test code = 5778-6) Yellow Appearance, UA (test code = 5767-9) Cloudy Specific gravity, UA (test code = 5811-5) 1.010 1.001-1.035 pH, UA (test code = 5803-2) 5.0 5.0-8.5 Protein, UA (test code = 33166-5) Negative Negative Glucose, UA (test code = 31045-7) Negative Negative Ketones, UA (test code = 2514-8) Negative Negative Bilirubin, UA (test code = 5770-3) Negative Negative Blood, UA (test code = 5794-3) Small Negative A Nitrite, UA (test code = 5802-4) Negative Negative Urobilinogen, UA (test code = 29788-9) Negative <2.0 Leukocyte esterase, UA (test code = 5799-2) Large Negative A WBC, UA (test code = 5821-4) 91 0- 1 /HPF H RBC, UA (test code = 46363-9) 5 0- 5 /HPF A Bacteria, UA (test code = 77535-2) Trace None seen Yeast, UA (test code = 55663-6) None seen Yeast with pseudohyphae, UA (test code = 21634-7) None seen Lab Interpretation (test code = 09017-9) Abnormal [place] [facility] with platelet and [id number] 07:06:27* Test Item Value Reference Range Interpretation Comments WBC (test code = 14498-6) 8.4 4.2- 11.0 k/uL RBC (test code = 38762-7) 3.88 m/uL 4.04-5.86 L HGB (test code = 718-7) 11.4 g/dL 13-17.3 L HCT (test code = 4544-3) 34.8 % 34-45 MCV (test code = 787-2) 89.7 fL 80-98 MCH (test code = 785-6) 29.4 pg 27-34 MCHC (test code = 786-4) 32.8 g/dL 31.5-36.5 RDW - SD (test code = 95261-2) 45.9 fL 37-51 MPV (test code = 16661-4) 9.4 fL 7.4-10.4 Platelet count (test code = 20076-8) 252 150- 400 k/uL Nucleated RBC (test code = 30670-0) 0.00 /100 WBC Neutrophils (test code = 63306-9) 70.2 % 36-66 H Lymphocytes (test code = 05519-5) 17.9 % 24-44 L Monocytes (test code = 25761-6) 7.8 % 0-6 H Eosinophils (test code = 16429-9) 3.5 % 0-6 Basophils (test code = 68767-4) 0.5 % 0-1.2 Immature granulocytes (test code = 49619-2) 0.1 % 0-1 Lab Interpretation (test code = 96649-8) Abnormal [place] MethodistAZ Abdomen Pelvis Wo [id number] 06:46:21Hm Interface, Radiology Results 07/10/2019 1:49 AM CDTCT ABDOMEN PELVIS WO CONTRASTCLINICAL INDICATION: abdominal painTECHNIQUE: Multidetector CT of the abdomen and pelvis was performed without intravenous contrast with multiplanar reconstructions. CT imaging was performed with iterative reconstruction te chnique and/or automated exposure control to reduce radiation dose.COMPARISON: NoneIMPRESSION:Please note, the lack of intravenous and oral contrast limits ashley luation of the abdominal and pelvic viscera.ABDOMEN/PELVIS:LOWER THORAX: Small right pleural effusion with some pleural thickening. Some pleural calcifications are identified of the right lung base. Bibasilar atelectasis/scarring. A couple of nodules are seen of the right lung base, the largest measuring 0.4 cm.Extens marleen coronary artery calcifications and some mitral valve and aortic valve calcif ications are seen.LIVER: Normal.BILIARY: Normal. SPLEEN: Normal.PANCREAS: Normal.ADRENALS: Normal. KIDNEYS: Simple cysts are seen of the left kidney. So me perinephric stranding is seen of the right kidney, and to a lesser extent, th e left kidney. This is nonspecific but could be seen with renal failure or urina ry tract infection, clinical correlation is advised. No hydronephrosis or hydrou reter.Mild wall thickening of the bladder is seen, which can be seen with cystit is and/or muscular hypertrophy.PERITONEUM: No free intraperitoneal fluid. No rito e intraperitoneal air. VASCULAR: Extensive atherosclerotic vascular calcificati ons. Infrarenal abdominal aorta is ectatic measuring 2 cm.LYMPH NODES: No enlar ged lymph nodes in the abdomen or pelvis.GI: Mild colonic diverticulosis is see n without diverticulitis. The appendix is normal. No gastrointestinal tract obst ruction.BONES: Postoperative appearance of the lower lumbar spine. Advanced deg enerative change of lumbar spine. Age-indeterminate compression deformity of L1 is identified; correlation for point tenderness is advised to exclude recent inj ury.SOFT TISSUES: Unremarkable.Summary:Nonspecific perinephric stranding is see n of the kidneys, right greater than left. This can be seen with renal failure o r urinary tract infection, and clinical correlation is advised. Mild wall thicke kathy of the bladder is seen, which can be seen with cystitis and/or muscular hyp ertrophy.Age-indeterminate compression deformity of L1 is identified; correlatio n for point tenderness is advised to exclude recent injury.[facility]-QV50DAGFWpzbiye MethodistB natriuretic [id number] 06:44:30* Test Item Value Reference Range Interpretation Comments BNP (test code = 95634-9) 78 pg/mL 0-100 [place] [facility]Comprehensive metabolic [id number] 06:37:10* Test Item Value Reference Range Interpretation Comments Sodium (test code = 2951-2) 133 135- 150 mEq/L L Potassium (test code = 2823-3) 4.1 3.5- 5.0 mEq/L Chloride (test code = 2075-0) 97 98- 112 mEq/L L CO2 (test code = 2027-9) 24 mmol/L 24-31 Anion gap (test code = 59130-5) 12@ANIO 7- 15 mEq/L BUN (test code = 3094-0) 14 mg/dL 7-18 Creatinine (test code = 2160-0) 0.90 mg/dL 0.7-1.2 Glucose (test code = 2345-7) 138 mg/dL 65-100 H Calcium (test code = 63256-0) 8.9 mg/dL 8.8-10.2 Protein (test code = 2885-2) 7.2 g/dL 6.3-8.3 Albumin (test code = 1751-7) 3.4 g/dL 3.5-5 L A/G ratio (test code = 1759-0) 0.9 0.7-3.8 Alkaline phosphatase (test code = 6768-6) 76 U/L 0-129 AST (test code = 1920-8) 14 U/L 10-50 ALT (test code = 1742-6) 8 U/L 5-50 Total bilirubin (test code = 1975-2) <0.3 0.2-1.2 Lab Interpretation (test code = 35260-0) Abnormal [place] MethodistLipase [id number] 06:37:10* Test Item Value Reference Range Interpretation Comments Lipase (test code = 3040-3) 16 U/L 13-60 [place] MethodistCOAGULATION TIME [id number] 15:21:00* Test Item Value Reference Range Interpretation Comments COAGULATION TIME ACTIVATED (test code = ACT) 234 seconds 62.8-88.0 H [id number] 16:52:00* Test Item Value Reference Range Interpretation Comments GLUBED (test code = GLUBED) 116 mg/dL 74-106 H Performed by certified butadiene convertor operator at [facility] [id number] 06:21:00* Test Item Value Reference Range Interpretation Comments GLUBED (test code = GLUBED) 171 mg/dL 74-106 H Performed by certified butadiene convertor operator at [facility] [id number] 20:58:00* Test Item Value Reference Range Interpretation Comments GLUBED (test code = GLUBED) 158 mg/dL 74-106 H Performed by certified butadiene convertor operator at [facility] [id number] 17:31:00* Test Item Value Reference Range Interpretation Comments GLUBED (test code = GLUBED) 146 mg/dL 74-106 H Performed by certified butadiene convertor operator at [facility] [id number] 12:39:00* Test Item Value Reference Range Interpretation Comments GLUBED (test code = GLUBED) 299 mg/dL 74-106 H Performed by certified butadiene convertor operator at [facility] COMPREHENSIVE METABOLIC [id number] 07:01:00* Test Item Value Reference Range Interpretation Comments SODIUM (test code = NA) 142 mmol/L 136-145 N POTASSIUM (test code = K) 3.6 mmol/L 3.5-5.1 N CHLORIDE (test code = CL) 110.0 mmol/L 98-107 H CARBON DIOXIDE (test code = CO2) 26.0 mmol/L 21-32 N ANION GAP (test code = GAP) 9.6 10-20 L GLUCOSE (test code = GLU) 127 mg/dL 74-106 H BLOOD UREA NITROGEN (test code = BUN) 20 mg/dL 7-18 H GLOMERULAR FILTRATION RATE (test code = GFR) > 60 mL/min >=60 Estimated GFR by using Modified MDRD formula.Chronic kidney disease is defined as either kidney damageor GFR <60 mL/min/1.73 m2 for >3 months. CREATININE (test code = CREAT) 1.00 mg/dL 0.7-1.3 N BUN/CREATININE RATIO (test code = BUN/CREA) 20.0 10-20 N TOTAL PROTEIN (test code = PROT) 6.6 gram/dL 6.4-8.2 N ALBUMIN (test code = ALB) 3.1 g/dL 3.4-5.0 L GLOBULIN (test code = GLOB) 3.5 gram/dL 2.7-4.2 N ALBUMIN/GLOBULIN RATIO (test code = A/G) 0.9 0.75-1.50 N CALCIUM (test code = CA) 8.3 mg/dL 8.5-10.1 L BILIRUBIN TOTAL (test code = BILT) 0.20 mg/dL 0.0-1.0 N SGOT/AST (test code = AST) 24 IUnit/L 15-37 N SGPT/ALT (test code = ALT) 16 IUnit/L 12-78 N ALKALINE PHOSPHATASE TOTAL (test code = ALKP) 77 IUnit/L 45-117 N Note change in reference range due to change in reagent. COMPREHENSIVE METABOLIC [id number] 06:46:00* Test Item Value Reference Range Interpretation Comments SODIUM (test code = NA) 142 mmol/L 136-145 N POTASSIUM (test code = K) 3.6 mmol/L 3.5-5.1 N CHLORIDE (test code = CL) 110.0 mmol/L 98-107 H CARBON DIOXIDE (test code = CO2) mmol/L 21-32 ANION GAP (test code = GAP) 10-20 GLUCOSE (test code = GLU) mg/dL 74-106 BLOOD UREA NITROGEN (test code = BUN) mg/dL 7-18 GLOMERULAR FILTRATION RATE (test code = GFR) mL/min >=60 CREATININE (test code = CREAT) mg/dL 0.7-1.3 BUN/CREATININE RATIO (test code = BUN/CREA) 10-20 TOTAL PROTEIN (test code = PROT) gram/dL 6.4-8.2 ALBUMIN (test code = ALB) g/dL 3.4-5.0 GLOBULIN (test code = GLOB) gram/dL 2.7-4.2 ALBUMIN/GLOBULIN RATIO (test code = A/G) 0.75-1.50 CALCIUM (test code = CA) mg/dL 8.5-10.1 BILIRUBIN TOTAL (test code = BILT) mg/dL 0.0-1.0 SGOT/AST (test code = AST) IUnit/L 15-37 SGPT/ALT (test code = ALT) IUnit/L 12-78 ALKALINE PHOSPHATASE TOTAL (test code = ALKP) IUnit/L 45-117 [id number] 06:32:00* Test Item Value Reference Range Interpretation Comments GLUBED (test code = GLUBED) 136 mg/dL 74-106 H Performed by certified butadiene convertor operator at [facility] CBC W/AUTO [id number] 06:25:00* Test Item Value Reference Range Interpretation Comments WHITE BLOOD CELL (test code = WBC) 9.4 K/mm3 4.5-12.5 N RED BLOOD CELL (test code = RBC) 3.88 mill/mm3 4.0-5.8 L HEMOGLOBIN (test code = HGB) 11.4 gram/dL 13.0-17.5 L HEMATOCRIT (test code = HCT) 34.7 % 42.0-52.0 L MEAN CELL VOLUME (test code = MCV) 89.4 fL 80-98 N MEAN CELL HGB (test code = MCH) 29.4 picogram 27.0-33.0 N MEAN CELL HGB CONCETRATION (test code = MCHC) 32.9 gram/dL 33.0-36. 0 L RED CELL DISTRIBUTION WIDTH (test code = RDW) 14.7 % 11.6-16. 2 N RED CELL DISTRIBUTION WIDTH SD (test code = RDW-SD) 48.3 fL 37 .0-51.0 N PLATELET COUNT (test code = PLT) 240 K/mm3 150-450 N MEAN PLATELET VOLUME (test code = MPV) 10.2 fL 6.7-11.0 N NEUTROPHIL % (test code = NT%) 68.6 % 39.0-69.0 N IMMATURE GRANULOCYTE % (test code = IG%) 0.2 % 0.0-5.0 N LYMPHOCYTE % (test code = LY%) 22.0 % 25.0-55.0 L MONOCYTE % (test code = MO%) 6.9 % 0.0-10.0 N EOSINOPHIL % (test code = EO%) 1.9 % 0.0-5.0 N BASOPHIL % (test code = BA%) 0.4 % 0.0-1.0 N NUCLEATED RBC % (test code = NRBC%) 0.0 % 0-0 N NEUTROPHIL # (test code = NT#) 6.43 K/mm3 1.8-7.7 N IMMATURE GRANULOCYTE # (test code = IG#) 0.02 x10 3/uL 0-0.03 N LYMPHOCYTE # (test code = LY#) 2.07 K/mm3 1.0-5.0 N MONOCYTE # (test code = MO#) 0.65 K/mm3 0-0.8 N EOSINOPHIL # (test code = EO#) 0.18 K/mm3 0.0-0.5 N BASOPHIL # (test code = BA#) 0.04 K/mm3 0.0-0.2 N NUCLEATED RBC # (test code = NRBC#) 0.00 K/mm3 0.0-0.1 N [id number] 20:37:00* Test Item Value Reference Range Interpretation Comments GLUBED (test code = GLUBED) 156 mg/dL 74-106 H Performed by certified butadiene convertor operator at [facility] [id number] 17:45:00* Test Item Value Reference Range Interpretation Comments GLUBED (test code = GLUBED) 118 mg/dL 74-106 H Performed by certified butadiene convertor operator at [facility] THROMBOPLASTIN TIME [id number] 13:10:00* Test Item Value Reference Range Interpretation Comments THROMBOPLASTIN TIME PARTIAL (test code = PTT) 66.6 seconds 25.0-36. 5 H IS PATIENT ON ANTICOAGULANTS? YLIST ANTICOAGULANTS [id number] 12:40:00* Test Item Value Reference Range Interpretation Comments GLUBED (test code = GLUBED) 107 mg/dL 74-106 H Performed by certified butadiene convertor operator at [facility] [id number] 06:20:00* Test Item Value Reference Range Interpretation Comments GLUBED (test code = GLUBED) 123 mg/dL 74-106 H Performed by certified butadiene convertor operator at [facility] THROMBOPLASTIN TIME [id number] 05:29:00* Test Item Value Reference Range Interpretation Comments THROMBOPLASTIN TIME PARTIAL (test code = PTT) 123.9 seconds 25.0-36 .5 HH Results called to [id number] by [email or web address] 06/22/19 0527Critical results verified and read back by Nurse? Y CBC W/AUTO [id number] 03:36:00* Test Item Value Reference Range Interpretation Comments WHITE BLOOD CELL (test code = WBC) 6.0 K/mm3 4.5-12.5 N RED BLOOD CELL (test code = RBC) 4.12 mill/mm3 4.0-5.8 N HEMOGLOBIN (test code = HGB) 11.9 gram/dL 13.0-17.5 L HEMATOCRIT (test code = HCT) 36.1 % 42.0-52.0 L MEAN CELL VOLUME (test code = MCV) 87.6 fL 80-98 N MEAN CELL HGB (test code = MCH) 28.9 picogram 27.0-33.0 N MEAN CELL HGB CONCETRATION (test code = MCHC) 33.0 gram/dL 33.0-36. 0 N RED CELL DISTRIBUTION WIDTH (test code = RDW) 14.5 % 11.6-16. 2 N RED CELL DISTRIBUTION WIDTH SD (test code = RDW-SD) 46.4 fL 37 .0-51.0 N PLATELET COUNT (test code = PLT) 254 K/mm3 150-450 N MEAN PLATELET VOLUME (test code = MPV) 10.0 fL 6.7-11.0 N NEUTROPHIL % (test code = NT%) 45.4 % 39.0-69.0 N IMMATURE GRANULOCYTE % (test code = IG%) 0.2 % 0.0-5.0 N LYMPHOCYTE % (test code = LY%) 42.0 % 25.0-55.0 N MONOCYTE % (test code = MO%) 8.6 % 0.0-10.0 N EOSINOPHIL % (test code = EO%) 3.0 % 0.0-5.0 N BASOPHIL % (test code = BA%) 0.8 % 0.0-1.0 N NUCLEATED RBC % (test code = NRBC%) 0.0 % 0-0 N NEUTROPHIL # (test code = NT#) 2.74 K/mm3 1.8-7.7 N IMMATURE GRANULOCYTE # (test code = IG#) 0.01 x10 3/uL 0-0.03 N LYMPHOCYTE # (test code = LY#) 2.53 K/mm3 1.0-5.0 N MONOCYTE # (test code = MO#) 0.52 K/mm3 0-0.8 N EOSINOPHIL # (test code = EO#) 0.18 K/mm3 0.0-0.5 N BASOPHIL # (test code = BA#) 0.05 K/mm3 0.0-0.2 N NUCLEATED RBC # (test code = NRBC#) 0.00 K/mm3 0.0-0.1 N MANUAL DIFF REQUIRED (test code = MDIFF) NO BASIC METABOLIC [id number] 03:27:00* Test Item Value Reference Range Interpretation Comments SODIUM (test code = NA) 139 mmol/L 136-145 N POTASSIUM (test code = K) 3.6 mmol/L 3.5-5.1 N CHLORIDE (test code = CL) 107.0 mmol/L 98-107 N CARBON DIOXIDE (test code = CO2) 25.0 mmol/L 21-32 N ANION GAP (test code = GAP) 10.6 10-20 N GLUCOSE (test code = GLU) 114 mg/dL 74-106 H BLOOD UREA NITROGEN (test code = BUN) 19 mg/dL 7-18 H GLOMERULAR FILTRATION RATE (test code = GFR) > 60 mL/min >=60 Estimated GFR by using Modified MDRD formula.Chronic kidney disease is defined as either kidney damageor GFR <60 mL/min/1.73 m2 for >3 months. CREATININE (test code = CREAT) 0.90 mg/dL 0.7-1.3 N BUN/CREATININE RATIO (test code = BUN/CREA) 21.1 10-20 H CALCIUM (test code = CA) 8.9 mg/dL 8.5-10.1 N BASIC METABOLIC [id number] 03:16:00* Test Item Value Reference Range Interpretation Comments SODIUM (test code = NA) 139 mmol/L 136-145 N POTASSIUM (test code = K) 3.6 mmol/L 3.5-5.1 N CHLORIDE (test code = CL) 107.0 mmol/L 98-107 N CARBON DIOXIDE (test code = CO2) mmol/L 21-32 ANION GAP (test code = GAP) 10-20 GLUCOSE (test code = GLU) mg/dL 74-106 BLOOD UREA NITROGEN (test code = BUN) mg/dL 7-18 GLOMERULAR FILTRATION RATE (test code = GFR) mL/min >=60 CREATININE (test code = CREAT) mg/dL 0.7-1.3 BUN/CREATININE RATIO (test code = BUN/CREA) 10-20 CALCIUM (test code = CA) 8.9 mg/dL 8.5-10.1 N [id number] 22:16:00* Test Item Value Reference Range Interpretation Comments GLUBED (test code = GLUBED) 119 mg/dL 74-106 H Performed by certified butadiene convertor operator at [facility] THROMBOPLASTIN TIME [id number] 21:16:00* Test Item Value Reference Range Interpretation Comments THROMBOPLASTIN TIME PARTIAL (test code = PTT) 59.9 seconds 25.0-36. 5 H IS PATIENT ON ANTICOAGULANTS? YLIST ANTICOAGULANTS [id number] 17:47:00* Test Item Value Reference Range Interpretation Comments GLUBED (test code = GLUBED) 212 mg/dL 74-106 H Performed by certified butadiene convertor operator at [facility] THROMBOPLASTIN TIME [id number] 15:57:00* Test Item Value Reference Range Interpretation Comments THROMBOPLASTIN TIME PARTIAL (test code = PTT) 65.0 seconds 25.0-36. 5 H IS PATIENT ON ANTICOAGULANTS? YLIST ANTICOAGULANTS [id number] 12:02:00* Test Item Value Reference Range Interpretation Comments GLUBED (test code = GLUBED) 116 mg/dL 74-106 H Performed by certified butadiene convertor operator at [facility] BASIC METABOLIC [id number] 10:17:00* Test Item Value Reference Range Interpretation Comments SODIUM (test code = NA) 136 mmol/L 136-145 N POTASSIUM (test code = K) 3.4 mmol/L 3.5-5.1 L CHLORIDE (test code = CL) 100.0 mmol/L 98-107 N CARBON DIOXIDE (test code = CO2) 28.0 mmol/L 21-32 N ANION GAP (test code = GAP) 11.4 10-20 N GLUCOSE (test code = GLU) 169 mg/dL 74-106 H BLOOD UREA NITROGEN (test code = BUN) 16 mg/dL 7-18 N GLOMERULAR FILTRATION RATE (test code = GFR) > 60 mL/min >=60 Estimated GFR by using Modified MDRD formula.Chronic kidney disease is defined as either kidney damageor GFR <60 mL/min/1.73 m2 for >3 months. CREATININE (test code = CREAT) 1.00 mg/dL 0.7-1.3 N BUN/CREATININE RATIO (test code = BUN/CREA) 16.0 10-20 N CALCIUM (test code = CA) 9.6 mg/dL 8.5-10.1 N THROMBOPLASTIN TIME [id number] 09:46:00* Test Item Value Reference Range Interpretation Comments THROMBOPLASTIN TIME PARTIAL (test code = PTT) 64.1 seconds 25.0-36. 5 H IS PATIENT ON ANTICOAGULANTS? YLIST ANTICOAGULANTS HEPARINCBC W/AUTO DIFF 2019-06-21 09:45:00* Test Item Value Reference Range Interpretation Comments WHITE BLOOD CELL (test code = WBC) 7.0 K/mm3 4.5-12.5 N RED BLOOD CELL (test code = RBC) 4.50 mill/mm3 4.0-5.8 N HEMOGLOBIN (test code = HGB) 13.3 gram/dL 13.0-17.5 N HEMATOCRIT (test code = HCT) 39.1 % 42.0-52.0 L MEAN CELL VOLUME (test code = MCV) 86.9 fL 80-98 N MEAN CELL HGB (test code = MCH) 29.6 picogram 27.0-33.0 N MEAN CELL HGB CONCETRATION (test code = MCHC) 34.0 gram/dL 33.0-36. 0 N RED CELL DISTRIBUTION WIDTH (test code = RDW) 14.3 % 11.6-16. 2 N RED CELL DISTRIBUTION WIDTH SD (test code = RDW-SD) 45.8 fL 37 .0-51.0 N PLATELET COUNT (test code = PLT) 297 K/mm3 150-450 N MEAN PLATELET VOLUME (test code = MPV) 9.7 fL 6.7-11.0 N NEUTROPHIL % (test code = NT%) 66.1 % 39.0-69.0 N IMMATURE GRANULOCYTE % (test code = IG%) 0.3 % 0.0-5.0 N LYMPHOCYTE % (test code = LY%) 24.5 % 25.0-55.0 L MONOCYTE % (test code = MO%) 6.8 % 0.0-10.0 N EOSINOPHIL % (test code = EO%) 1.4 % 0.0-5.0 N BASOPHIL % (test code = BA%) 0.9 % 0.0-1.0 N NUCLEATED RBC % (test code = NRBC%) 0.0 % 0-0 N NEUTROPHIL # (test code = NT#) 4.63 K/mm3 1.8-7.7 N IMMATURE GRANULOCYTE # (test code = IG#) 0.02 x10 3/uL 0-0.03 N LYMPHOCYTE # (test code = LY#) 1.72 K/mm3 1.0-5.0 N MONOCYTE # (test code = MO#) 0.48 K/mm3 0-0.8 N EOSINOPHIL # (test code = EO#) 0.10 K/mm3 0.0-0.5 N BASOPHIL # (test code = BA#) 0.06 K/mm3 0.0-0.2 N NUCLEATED RBC # (test code = NRBC#) 0.00 K/mm3 0.0-0.1 N CBC W/AUTO [id number] 09:30:00* Test Item Value Reference Range Interpretation Comments WHITE BLOOD CELL (test code = WBC) K/mm3 4.5-12.5 RED BLOOD CELL (test code = RBC) mill/mm3 4.0-5.8 HEMOGLOBIN (test code = HGB) 13.3 gram/dL 13.0-17.5 N HEMATOCRIT (test code = HCT) % 42.0-52.0 MEAN CELL VOLUME (test code = MCV) fL 80-98 MEAN CELL HGB (test code = MCH) picogram 27.0-33.0 MEAN CELL HGB CONCETRATION (test code = MCHC) gram/dL 33.0-36. 0 RED CELL DISTRIBUTION WIDTH (test code = RDW) % 11.6-16. 2 RED CELL DISTRIBUTION WIDTH SD (test code = RDW-SD) fL 37 .0-51.0 PLATELET COUNT (test code = PLT) K/mm3 150-450 MEAN PLATELET VOLUME (test code = MPV) fL 6.7-11.0 NEUTROPHIL % (test code = NT%) % 39.0-69.0 IMMATURE GRANULOCYTE % (test code = IG%) % 0.0-5.0 LYMPHOCYTE % (test code = LY%) % 25.0-55.0 MONOCYTE % (test code = MO%) % 0.0-10.0 EOSINOPHIL % (test code = EO%) % 0.0-5.0 BASOPHIL % (test code = BA%) % 0.0-1.0 NEUTROPHIL # (test code = NT#) K/mm3 1.8-7.7 LYMPHOCYTE # (test code = LY#) K/mm3 1.0-5.0 MONOCYTE # (test code = MO#) K/mm3 0-0.8 EOSINOPHIL # (test code = EO#) K/mm3 0.0-0.5 BASOPHIL # (test code = BA#) K/mm3 0.0-0.2 [id number] 05:58:00* Test Item Value Reference Range Interpretation Comments GLUBED (test code = GLUBED) 115 mg/dL 74-106 H Performed by certified butadiene convertor operator at [facility] THROMBOPLASTIN TIME [id number] 02:05:00* Test Item Value Reference Range Interpretation Comments THROMBOPLASTIN TIME PARTIAL (test code = PTT) 94.6 seconds 25.0-36. 5 HH Results called to [id number] by COLLEEN 06/21/19 0205Critical results verified and read back by Nurse? Y IS PATIENT ON ANTICOAGULANTS? YLIST ANTICOAGULANTS [id number] 23:36:00* Test Item Value Reference Range Interpretation Comments GLUBED (test code = GLUBED) 121 mg/dL 74-106 H Performed by certified butadiene convertor operator at [facility] [id number] 22:36:00* Test Item Value Reference Range Interpretation Comments GLUBED (test code = GLUBED) 125 mg/dL 74-106 H Performed by certified butadiene convertor operator at [facility] [id number] 16:36:00* Test Item Value Reference Range Interpretation Comments GLUBED (test code = GLUBED) 141 mg/dL 74-106 H Performed by certified butadiene convertor operator at [facility] THROMBOPLASTIN TIME [id number] 14:59:00* Test Item Value Reference Range Interpretation Comments THROMBOPLASTIN TIME PARTIAL (test code = PTT) 46.7 seconds 25.0-36. 5 H IS PATIENT ON ANTICOAGULANTS? YLIST ANTICOAGULANTS [id number] 13:10:00* Test Item Value Reference Range Interpretation Comments GLUBED (test code = GLUBED) 155 mg/dL 74-106 H Performed by certified butadiene convertor operator at [facility] [id number] 00:02:00* Test Item Value Reference Range Interpretation Comments GLUBED (test code = GLUBED) 104 mg/dL 74-106 N Performed by certified butadiene convertor operator at [facility] - XR CHEST 1 [id number] 16:49:00 FAX: Clary Galeana MD [phone] [place]: B St: REG Name: MARLEN RODGERS [facility] : [birth year] 45 Age/S: 74/M [address] [facility] Unit #: [id number] Loc: [place] [address] Phys: Clary Galeana MD Acct: [id number] Dis Date: Status: REG ER PHONE #: [phone] Exam Date: 06/19/2019 1628 FAX #: [phone] Reason: CHEST PAIN EXAMS: CPT CODE: [id number] XR CHEST 1 V 51072 HISTORY: Chest pain. COMPARISON: April 29, 2019. Location: [facility]. No ac [place] band infiltrates, effusion or congestion is noted. Loss of lung volume in t he right upper lobe with surgical sutures. These findings suggest lobectom y. Mild cardiomegaly. IMPRESSION: No acute i nfiltrates, effusion or congestion. at 1649 Reported and signed by: Perez Pollack M.D. CC: Clary Galeana MD Technologist: Rosa Isela Ocampo RT(R) Trnscrd Date/Time/By: 06/19/2019 (1648) : By: [email or web address] Orig Print D/T: S: 06/19/2019 (714) PAGE 1 Signed Report BASIC METABOLIC PANEL 2019-06-19 15:51:00* Test Item Value Reference Range Interpretation Comments SODIUM (test code = NA) 137 mmol/L 136-145 N POTASSIUM (test code = K) 3.9 mmol/L 3.5-5.1 N CHLORIDE (test code = CL) 104.0 mmol/L 98-107 N CARBON DIOXIDE (test code = CO2) 24.0 mmol/L 21-32 N ANION GAP (test code = GAP) 12.9 10-20 N GLUCOSE (test code = GLU) 199 mg/dL 74-106 H BLOOD UREA NITROGEN (test code = BUN) 12 mg/dL 7-18 N GLOMERULAR FILTRATION RATE (test code = GFR) > 60 mL/min >=60 Estimated GFR by using Modified MDRD formula.Chronic kidney disease is defined as either kidney damageor GFR <60 mL/min/1.73 m2 for >3 months. CREATININE (test code = CREAT) 0.90 mg/dL 0.7-1.3 N BUN/CREATININE RATIO (test code = BUN/CREA) 13.3 10-20 N CALCIUM (test code = CA) 9.6 mg/dL 8.5-10.1 N HEPATIC FUNCTION [id number] 15:51:00* Test Item Value Reference Range Interpretation Comments TOTAL PROTEIN (test code = PROT) 8.0 gram/dL 6.4-8.2 N ALBUMIN (test code = ALB) 3.6 g/dL 3.4-5.0 N GLOBULIN (test code = GLOB) 4.4 gram/dL 2.7-4.2 H ALBUMIN/GLOBULIN RATIO (test code = A/G) 0.8 0.75-1.50 N BILIRUBIN TOTAL (test code = BILT) 0.30 mg/dL 0.0-1.0 N BILIRUBIN DIRECT (test code = BILD) 0.12 mg/dL 0.0-0.20 N SGOT/AST (test code = AST) 14 IUnit/L 15-37 L SGPT/ALT (test code = ALT) 14 IUnit/L 12-78 N ALKALINE PHOSPHATASE TOTAL (test code = ALKP) 90 IUnit/L 45-117 N Note change in reference range due to change in reagent. [id number] 15:51:00* Test Item Value Reference Range Interpretation Comments LIPASE (test code = LIP) 98 U/L 73.0-393.0 N [id number] 15:51:00* Test Item Value Reference Range Interpretation Comments MAGNESIUM (test code = MAG) 1.8 mg/dL 1.8-2.4 N BASIC METABOLIC [id number] 15:42:00* Test Item Value Reference Range Interpretation Comments SODIUM (test code = NA) 137 mmol/L 136-145 N POTASSIUM (test code = K) 3.9 mmol/L 3.5-5.1 N CHLORIDE (test code = CL) 104.0 mmol/L 98-107 N CARBON DIOXIDE (test code = CO2) mmol/L 21-32 ANION GAP (test code = GAP) 10-20 GLUCOSE (test code = GLU) mg/dL 74-106 BLOOD UREA NITROGEN (test code = BUN) mg/dL 7-18 GLOMERULAR FILTRATION RATE (test code = GFR) mL/min >=60 CREATININE (test code = CREAT) mg/dL 0.7-1.3 BUN/CREATININE RATIO (test code = BUN/CREA) 10-20 CALCIUM (test code = CA) mg/dL 8.5-10.1 HEPATIC FUNCTION [id number] 15:42:00* Test Item Value Reference Range Interpretation Comments TOTAL PROTEIN (test code = PROT) gram/dL 6.4-8.2 ALBUMIN (test code = ALB) g/dL 3.4-5.0 GLOBULIN (test code = GLOB) gram/dL 2.7-4.2 ALBUMIN/GLOBULIN RATIO (test code = A/G) 0.75-1.50 BILIRUBIN TOTAL (test code = BILT) mg/dL 0.0-1.0 BILIRUBIN DIRECT (test code = BILD) mg/dL 0.0-0.20 SGOT/AST (test code = AST) IUnit/L 15-37 SGPT/ALT (test code = ALT) IUnit/L 12-78 ALKALINE PHOSPHATASE TOTAL (test code = ALKP) IUnit/L 45-117 [id number] 15:42:00* Test Item Value Reference Range Interpretation Comments LIPASE (test code = LIP) U/L 73.0-393.0 [id number] 15:42:00* Test Item Value Reference Range Interpretation Comments MAGNESIUM (test code = MAG) mg/dL 1.8-2.4 PROTHROMBIN [id number] 15:39:00* Test Item Value Reference Range Interpretation Comments PROTHROMBIN TIME PATIENT (test code = PTP) 12.4 seconds 9.0-14.0 N INTERNATIONAL NORMAL RATIO (test code = INR) 1.1 0.8-1.2 N The therapeutic range for oral anticoagulant therapy [...] (2.5-3.5) IS PATIENT ON ANTICOAGULANTS? NTHROMBOPLASTIN TIME [id number] 15:39:00* Test Item Value Reference Range Interpretation Comments THROMBOPLASTIN TIME PARTIAL (test code = PTT) 32.9 seconds 25.0-36. 5 N IS PATIENT ON ANTICOAGULANTS? NCBC W/O [id number] 15:24:00* Test Item Value Reference Range Interpretation Comments WHITE BLOOD CELL (test code = WBC) 8.2 K/mm3 4.5-12.5 N RED BLOOD CELL (test code = RBC) 4.46 mill/mm3 4.0-5.8 N HEMOGLOBIN (test code = HGB) 13.0 gram/dL 13.0-17.5 N HEMATOCRIT (test code = HCT) 38.8 % 42.0-52.0 L MEAN CELL VOLUME (test code = MCV) 87.0 fL 80-98 N MEAN CELL HGB (test code = MCH) 29.1 picogram 27.0-33.0 N MEAN CELL HGB CONCETRATION (test code = MCHC) 33.5 gram/dL 33.0-36. 0 N RED CELL DISTRIBUTION WIDTH (test code = RDW) 14.3 % 11.6-16. 2 N PLATELET COUNT (test code = PLT) 300 K/mm3 150-450 N MEAN PLATELET VOLUME (test code = MPV) 9.4 fL 6.7-11.0 N COAGULATION TIME [id number] 17:24:00* Test Item Value Reference Range Interpretation Comments COAGULATION TIME ACTIVATED (test code = ACT) 325 seconds 62.8-88.0 H COAGULATION TIME [id number] 17:24:00* Test Item Value Reference Range Interpretation Comments COAGULATION TIME ACTIVATED (test code = ACT) 366 seconds 62.8-88.0 H COAGULATION TIME [id number] 17:24:00* Test Item Value Reference Range Interpretation Comments COAGULATION TIME ACTIVATED (test code = ACT) 357 seconds 62.8-88.0 H COAGULATION TIME [id number] 17:24:00* Test Item Value Reference Range Interpretation Comments COAGULATION TIME ACTIVATED (test code = ACT) 266 seconds 62.8-88.0 H COAGULATION TIME [id number] 17:24:00* Test Item Value Reference Range Interpretation Comments COAGULATION TIME ACTIVATED (test code = ACT) 256 seconds 62.8-88.0 H [id number] 15:51:00* Test Item Value Reference Range Interpretation Comments GLUBED (test code = GLUBED) 163 mg/dL 74-106 H Performed by certified butadiene convertor operator at [facility] BASIC METABOLIC [id number] 12:13:00* Test Item Value Reference Range Interpretation Comments SODIUM (test code = NA) 139 mmol/L 136-145 N POTASSIUM (test code = K) 4.4 mmol/L 3.5-5.1 N CHLORIDE (test code = CL) 105.0 mmol/L 98-107 N CARBON DIOXIDE (test code = CO2) 27.0 mmol/L 21-32 N ANION GAP (test code = GAP) 11.4 10-20 N GLUCOSE (test code = GLU) 117 mg/dL 74-106 H BLOOD UREA NITROGEN (test code = BUN) 17 mg/dL 7-18 N GLOMERULAR FILTRATION RATE (test code = GFR) > 60 mL/min >=60 Estimated GFR by using Modified MDRD formula.Chronic kidney disease is defined as either kidney damageor GFR <60 mL/min/1.73 m2 for >3 months. CREATININE (test code = CREAT) 1.00 mg/dL 0.7-1.3 N BUN/CREATININE RATIO (test code = BUN/CREA) 17.0 10-20 N CALCIUM (test code = CA) 8.9 mg/dL 8.5-10.1 N BASIC METABOLIC [id number] 12:10:00* Test Item Value Reference Range Interpretation Comments SODIUM (test code = NA) 139 mmol/L 136-145 N POTASSIUM (test code = K) 4.4 mmol/L 3.5-5.1 N CHLORIDE (test code = CL) 105.0 mmol/L 98-107 N CARBON DIOXIDE (test code = CO2) mmol/L 21-32 ANION GAP (test code = GAP) 10-20 GLUCOSE (test code = GLU) mg/dL 74-106 BLOOD UREA NITROGEN (test code = BUN) mg/dL 7-18 GLOMERULAR FILTRATION RATE (test code = GFR) mL/min >=60 CREATININE (test code = CREAT) mg/dL 0.7-1.3 BUN/CREATININE RATIO (test code = BUN/CREA) 10-20 CALCIUM (test code = CA) mg/dL 8.5-10.1 CBC W/O [id number] 11:37:00* Test Item Value Reference Range Interpretation Comments WHITE BLOOD CELL (test code = WBC) 7.5 K/mm3 4.5-12.5 N RED BLOOD CELL (test code = RBC) 3.80 mill/mm3 4.0-5.8 L HEMOGLOBIN (test code = HGB) 11.0 gram/dL 13.0-17.5 L HEMATOCRIT (test code = HCT) 34.2 % 42.0-52.0 L MEAN CELL VOLUME (test code = MCV) 90.0 fL 80-98 N MEAN CELL HGB (test code = MCH) 28.9 picogram 27.0-33.0 N MEAN CELL HGB CONCETRATION (test code = MCHC) 32.2 gram/dL 33.0-36. 0 L RED CELL DISTRIBUTION WIDTH (test code = RDW) 14.9 % 11.6-16. 2 N PLATELET COUNT (test code = PLT) 322 K/mm3 150-450 N MEAN PLATELET VOLUME (test code = MPV) 9.2 fL 6.7-11.0 N [id number] 11:06:00* Test Item Value Reference Range Interpretation Comments GLUBED (test code = GLUBED) 119 mg/dL 74-106 H Performed by certified butadiene convertor operator at [facility] PROTHROMBIN [id number] 07:25:00* Test Item Value Reference Range Interpretation Comments PROTHROMBIN TIME PATIENT (test code = PTP) 11.5 seconds 9.0-14.0 N INTERNATIONAL NORMAL RATIO (test code = INR) 1.0 0.8-1.2 N The therapeutic range for oral anticoagulant therapy [...] heart valves (2.5-3.5) IS PATIENT ON ANTICOAGULANTS? YLIST ANTICOAGULANTS [id number] 05:43:00* Test Item Value Reference Range Interpretation Comments GLUBED (test code = GLUBED) 161 mg/dL 74-106 H Performed by certified butadiene convertor operator at [facility] [id number] 21:01:00* Test Item Value Reference Range Interpretation Comments GLUBED (test code = GLUBED) 241 mg/dL 74-106 H Performed by certified butadiene convertor operator at [facility] [id number] 17:32:00* Test Item Value Reference Range Interpretation Comments GLUBED (test code = GLUBED) 88 mg/dL 74-106 N Performed by certified butadiene convertor operator at [facility] PROTHROMBIN [id number] 16:24:00* Test Item Value Reference Range Interpretation Comments PROTHROMBIN TIME PATIENT (test code = PTP) 11.5 seconds 9.0-14.0 N INTERNATIONAL NORMAL RATIO (test code = INR) 1.0 0.8-1.2 N The therapeutic range for oral anticoagulant therapy [...] heart valves (2.5-3.5) IS PATIENT ON ANTICOAGULANTS? YLIST ANTICOAGULANTS [id number] 13:14:00* Test Item Value Reference Range Interpretation Comments GLUBED (test code = GLUBED) 243 mg/dL 74-106 H Performed by certified butadiene convertor operator at [facility] [id number] 06:30:00* Test Item Value Reference Range Interpretation Comments GLUBED (test code = GLUBED) 149 mg/dL 74-106 H Performed by certified butadiene convertor operator at [facility] [id number] 20:17:00* Test Item Value Reference Range Interpretation Comments GLUBED (test code = GLUBED) 181 mg/dL 74-106 H Performed by certified butadiene convertor operator at [facility] [id number] 17:40:00* Test Item Value Reference Range Interpretation Comments GLUBED (test code = GLUBED) 144 mg/dL 74-106 H Performed by certified butadiene convertor operator at [facility] [id number] 14:29:00* Test Item Value Reference Range Interpretation Comments GLUBED (test code = GLUBED) 268 mg/dL 74-106 H Performed by certified butadiene convertor operator at [facility] [id number] 06:28:00* Test Item Value Reference Range Interpretation Comments GLUBED (test code = GLUBED) 147 mg/dL 74-106 H Performed by certified butadiene convertor operator at [facility] [id number] 20:25:00* Test Item Value Reference Range Interpretation Comments GLUBED (test code = GLUBED) 136 mg/dL 74-106 H Performed by certified butadiene convertor operator at [facility] [id number] 17:18:00* Test Item Value Reference Range Interpretation Comments GLUBED (test code = GLUBED) 70 mg/dL 74-106 L Performed by certified butadiene convertor operator at [facility] [id number] 15:59:00 RUN DATE: 05/05/19 [place] - Lab PAGE 1 RUN TIME: 1600 Specimen Inqui ry RUN USER: INTERFACE PATIENT: MARLEN NOLAND ACCT #: [id number] LOC: [facility]BY U #: [id number] AGE/SX: 74/M ROOM: 2081 RE04/01/19 DR: Maikol Hendrickson MD : 45 BED: A DIS: STATUS: ADM IN TLOC: SPEC #: [id number] RECD: 05/01/19 STATUS: JOHANNA GERALDINE #: [id number] JHONNY: 04/28/19- DR: Yolande Kelley MD ENTERED: 05/01/19 SP TYPE: PLAQUE OTHR DR: Alison Song MD, Jawdat R DPM Hampel, Nehemia MD Qureshi, Salah Uddin MD Tripathy, Uttam MD Vasquez Donado, Andres F MD Young, Lauren NPORDERED: GROSS COPIES TO: Alison Song MD [address] [facility] [place] [address] Tanvi Murillo DPM [address] #[place] [address] Isrrael Ramos MD [address] [place] [address] Yolande Kelley MD [address] [place] [address] Aury Munoz MD [address] [place] [id number] [place] [address] [place] [id number] [email or web address] Carl Deleon MD [address] [facility] [address] [facility], [place] [address] CONTINUED ON NEXT P AGE RUN DATE: 05/05/19 [place] [facility] PAGE 2 RUN TIME: 1600 Specimen Inquiry RUN USER: INTERFACE SPEC #: [id number] PATIENT: MARLEN NOLAND #[id number] (Continued) COPIES TO: (Con tinued) Tammy Lorenzana [facility] [address] [place], [place] [address] [phone] PROCEDURES: GROSS (05/05/19-1138) TISSUES: LEG, NOS - RIGHT CLINICAL HISTORY COLLECTION DATE: 04/28/2019 LEFT LEG ISCHEMIA FINAL DIAGNOSIS Left leg plaque, removal: PARTIALLY CALCIFIED ATHERO MATOUS PLAQUE MATERIAL BO/francisco Callejas [address], [id number] MACROSCOPI C The specimen is received in formalin, labeled with the patient's name, and identified as "left leg plaque". it consists of a tubular calcific portion of atheromatous plaque material measuring 4 cm in length by 0.8 cm in diameter. Additional fragments of calcified atherosclerotic material are present in the container and measure 2.7 x 2.3 x 0.5 cm in aggregate. The specimen will be placed in decalcification solution prior to sampling. After the specimen is allowed to decalcify samples are submitted for microscopic evaluation in a single cassette. GROSS PERFORMED AT [facility] [address] [place] [phone] (p) [phone] CONTINUED ON NEXT PAGE -- RUN DATE: 05/05/19 [facility] PAGE 3 RUN TIME: 1600 Specimen Inquiry RUN USER: INTERFACE SPEC #: [id number] PATIENT: MARLEN NOLAND #[id number] (Continued) MICROSCOPIC All of the stains, including any controls performed, stain appropriately. MICROSCOPIC PERFORMED AT [facility] [address] [place] [address] [phone] PERFORMING SITE Diagnosis performed at: [facility] [address] [facility], [place] [address] Signed SIGNATURE ON FILE Clair Armstrong MD 05/05/19 1559 END OF REPORT [id number] 11:58:00* Test Item Value Reference Range Interpretation Comments GLUBED (test code = GLUBED) 274 mg/dL 74-106 H Performed by certified butadiene convertor operator at [facility] BASIC METABOLIC [id number] 06:19:00* Test Item Value Reference Range Interpretation Comments SODIUM (test code = NA) 139 mmol/L 136-145 N POTASSIUM (test code = K) 3.8 mmol/L 3.5-5.1 N CHLORIDE (test code = CL) 103.0 mmol/L 98-107 N CARBON DIOXIDE (test code = CO2) 27.0 mmol/L 21-32 N ANION GAP (test code = GAP) 12.8 10-20 N GLUCOSE (test code = GLU) 154 mg/dL 74-106 H BLOOD UREA NITROGEN (test code = BUN) 12 mg/dL 7-18 N GLOMERULAR FILTRATION RATE (test code = GFR) > 60 mL/min >=60 Estimated GFR by using Modified MDRD formula.Chronic kidney disease is defined as either kidney damageor GFR <60 mL/min/1.73 m2 for >3 months. CREATININE (test code = CREAT) 0.90 mg/dL 0.7-1.3 N BUN/CREATININE RATIO (test code = BUN/CREA) 13.3 10-20 N CALCIUM (test code = CA) 9.6 mg/dL 8.5-10.1 N BASIC METABOLIC [id number] 06:07:00* Test Item Value Reference Range Interpretation Comments SODIUM (test code = NA) 139 mmol/L 136-145 N POTASSIUM (test code = K) 3.8 mmol/L 3.5-5.1 N CHLORIDE (test code = CL) 103.0 mmol/L 98-107 N CARBON DIOXIDE (test code = CO2) mmol/L 21-32 ANION GAP (test code = GAP) 10-20 GLUCOSE (test code = GLU) mg/dL 74-106 BLOOD UREA NITROGEN (test code = BUN) mg/dL 7-18 GLOMERULAR FILTRATION RATE (test code = GFR) mL/min >=60 CREATININE (test code = CREAT) mg/dL 0.7-1.3 BUN/CREATININE RATIO (test code = BUN/CREA) 10-20 CALCIUM (test code = CA) mg/dL 8.5-10.1 CBC W/O [id number] 06:03:00* Test Item Value Reference Range Interpretation Comments WHITE BLOOD CELL (test code = WBC) 6.7 K/mm3 4.5-12.5 N RED BLOOD CELL (test code = RBC) 3.92 mill/mm3 4.0-5.8 L HEMOGLOBIN (test code = HGB) 11.3 gram/dL 13.0-17.5 L HEMATOCRIT (test code = HCT) 34.8 % 42.0-52.0 L MEAN CELL VOLUME (test code = MCV) 88.8 fL 80-98 N MEAN CELL HGB (test code = MCH) 28.8 picogram 27.0-33.0 N MEAN CELL HGB CONCETRATION (test code = MCHC) 32.5 gram/dL 33.0-36. 0 L RED CELL DISTRIBUTION WIDTH (test code = RDW) 15.2 % 11.6-16. 2 N PLATELET COUNT (test code = PLT) 304 K/mm3 150-450 N MEAN PLATELET VOLUME (test code = MPV) 10.0 fL 6.7-11.0 N [id number] 05:45:00* Test Item Value Reference Range Interpretation Comments GLUBED (test code = GLUBED) 141 mg/dL 74-106 H Performed by certified butadiene convertor operator at [facility] [id number] 16:58:00* Test Item Value Reference Range Interpretation Comments GLUBED (test code = GLUBED) 168 mg/dL 74-106 H Performed by certified butadiene convertor operator at [facility] [id number] 16:58:00* Test Item Value Reference Range Interpretation Comments GLUBED (test code = GLUBED) 171 mg/dL 74-106 H Performed by certified butadiene convertor operator at [facility] - XR FOREARM 2 VIEWS [id number] 09:31:00 FAX: Maikol Capps [phone] [place]: St: ADM Name: MARLEN RODGERS [facility] : [birth year] Age/S: 74/M [address] [facility] Unit #: [id number] Loc: V.2082 [place] [address] Phys: Maikol Hendrickson MD Acct: [id number] Dis Date: Status: ADM IN PHONE #: [phone] Exam Date: 05/04/2019829 FAX #: [phone] Reason: S/P FALL EXAMS: CPT CODE: [id number] XR FOREARM [address] [place] [address] HISTORY: Pain. CLAUDIA RISON: None available. Location: [facility]. 2 views each o f the right and left forearm: Soft tissue laceration along the med ial left forearm. No acute fracture or dislocation on either side. Elbow a nd wrist joints are mildly narrowed bilaterally. Vascular calcifications b ilaterally. IMPRESSION: No acute fracture or d islocation of either forearm. Soft tissue laceration along the medial mi d left forearm without radiopaque foreign bodies. Electronic ally Signed by Andrea Pollack on 05/04/2019 at 0931 R eported and signed by: Perez Pollack M.D. CC: Maikol Hendrickson Technologist: Ct Piper, RT(R); ALEXANDR ROGERS RT(R) Trnscrd Date/Time/By: 05/04/2019 (930) : By: [email or web address] Orig Print D/T: S: 05/04/2019 (34) PAGE 1 Signed Report GLUBED 2019-05-04 06:04:00* Test Item Value Reference Range Interpretation Comments GLUBED (test code = GLUBED) 182 mg/dL 74-106 H Performed by certified butadiene convertor operator at [facility] [id number] 20:54:00* Test Item Value Reference Range Interpretation Comments GLUBED (test code = GLUBED) 220 mg/dL 74-106 H Performed by certified butadiene convertor operator at [facility] [id number] 15:14:00* Test Item Value Reference Range Interpretation Comments GLUBED (test code = GLUBED) 224 mg/dL 74-106 H Performed by certified butadiene convertor operator at [facility] [id number] 15:14:00* Test Item Value Reference Range Interpretation Comments GLUBED (test code = GLUBED) 239 mg/dL 74-106 H Performed by certified butadiene convertor operator at [facility] - CT HEAD/BRAIN W/O [id number] 15:02:00 Name: MARLEN NOLAND [facility] : 1945 Age/S: 74 / M [address] Unit #: [id number] Loc: [place] [address] Phys: Maikol Hendrickson MD Acct: [id number] Dis Date: Status: ADM IN PHONE #: [phone] Exam Date: 05/03/2019 1433 FAX #: [phone] Reason: S/P FALL EXAMS: CPT CODE: [id number] CT HEAD/BRAIN W/O CONT 85037 HISTORY: S/P FALL; head trauma TECHNIQUE: Noncontrast 2.[address] of the head. Examination acquired within 24 hours of arrival. Automated exposure control for dose reduction; DLP: 870 mGy-cm. COMPARISON: 04/02/19 FINDINGS: No acute hemorrhage. No CT evidence of acute infarct. Moderate periventricular chronic microvascular ischemic changes. No intracranial mass or mass effect. Mild global parenchymal atrophy with ex vacuo dilation of the ventricular system. No hydrocephalus. No extra-axial fluid collection. Atherosclerotic vascular calcification of the internal carotid and vertebral arteries. Visualized paranasal sinuses are clear. Mastoid air cells and middle ear cavities are clear. Orbital c ontents are unremarkable. Calvarium and skull base are intact. IMPRESSION: No acute intracranial process. No sig nificant interval change. LOCATION: LP Electronically Signed by Netta Hidalgo D.O. on 020 at 1502 Reported and signed by: Netta Hidalgo D.O. CC: Maikol Hendrickson Technologist:Hieu Murillo RT(R),(MR),(CT); CTDI: DLP: Trnscb Date/Time: 05/03/2019 (1502) [email or web address] Orig Print D/T: S: 05/03/2019 (6477) PAGE 1 Signed Report - XR HIP W PEL BI MIN5 [id number] 14:36:00 FAX: Maikol Capps [phone] [place]: B St: ADM Name: MARLEN RODGERS [facility] : [birth year] 45 Age[facility]S: 74/[facility] [address] [facility] #: [id number] Loc: [address] [place] [address] Phys: Maikol Hendrickson MD Acct: [id number] Dis Date: Status: ADM IN PHONE #: [phone] Exam Date: 05/03/2019 1429 FAX #: [phone] Reason: S/P FALL EXAMS: CPT CODE: [id number] XR HIP W PEL BI MIN5 VW [address] CLINICAL HISTORY: S/P FALL TECHNIQUE: Neutral and frog leg AP views of the bilateral hips; AP pelvis COMPARISON: None IMPRESSION: No acute fracture or dislocation. Mild bilateral hip degenerative ar throsis. Visualized bony pelvis is intact. Bony trabecular pattern is un remarkable. Nevarez catheter. Atherosclerotic vascular calcification. Diane onal soft tissues are unremarkable. LOCATI ON: LP at 1436 Reported and signed by: Netta Hidalgo D.O. CC: Maikol Hendrickson Technologist: Marsha Arnold(R); Nichole Lubin RT(R) Trnscrd Date/Time/By: 05/03/2019 (3812) : By: [email or web address] Orig Print D/T: S: 0 05/03/2019 (4744) PAGE 1 Signed Re port [id number] 06:03:00* Test Item Value Reference Range Interpretation Comments GLUBED (test code = GLUBED) 146 mg/dL 74-106 H Performed by certified butadiene convertor operator at [facility] [id number] 20:44:00* Test Item Value Reference Range Interpretation Comments GLUBED (test code = GLUBED) 249 mg/dL 74-106 H Performed by certified butadiene convertor operator at [facility] [id number] 14:58:00* Test Item Value Reference Range Interpretation Comments GLUBED (test code = GLUBED) 232 mg/dL 74-106 H Performed by certified butadiene convertor operator at [facility] [id number] 12:01:00* Test Item Value Reference Range Interpretation Comments GLUBED (test code = GLUBED) 239 mg/dL 74-106 H Performed by certified butadiene convertor operator at [facility] - CT ABD PELVIS W/O [id number] 09:42:00 Name: LUDIN,MARLEN [facility]: 1945 Age/S: 74 / M [address] Unit #: [id number] Loc: [place], [place] [address] Phys: Maikol Hendrickson MD Acct: [id number] Dis Date: Status: ADM IN PHONE #: [phone] Exam Date: 05/02/2019 0819 FAX #: [phone] Reason: ACUTE BLOOD LOSS ANEMIA EXAMS: CPT CODE: [id number] CT ABD PELVIS W/O CONT 45648 HISTORY: Acute blood loss and anemia. COMPARISON: CT scan from April 02, 2019. CT abdomen and pelvis: Stone protocol. Automated exposure control. Location: [facility]. CT ABDOMEN: The lung bases demonstrating small effusions and subsegmental atelectasis. Scarring. The liver is being obscured by beam hardening artifact from patient's adjacent arms on this noncontrast exam. No gross mass is noted. Moderately distended gallbladder is without radiopaque stones. The liver measured 18 cm in length. Unremarkable spleen is being obscured by beam hardening artifact. Stomach distends incompletely and is within limits. Noncontrast pancreas demonstrating moderate atrophy. Adrenals are normal. Kidneys are free from hydroureteronephrosis with extensive renovascular calcifications. Bosniak 1 lesion measuring 4.3 cm in the left lobe with average Hounsfield unit measurement 9. No pathologic adenopathy. No bowel obstruction or colitis or diverticulitis or enteritis. Constipation. CT PELVIS: Appendix is normal. Pelvic bowel loops are unobstructed. Constipation. Diverticulosis. Decompressed urinary bladder in presence of Nevarez catheter. Prostate is not enlarged. No pelvic pathologic adenopathy. No free fluid or free air. Subcutaneous tissues demonstrating mild nonspecific edema. No lytic or blastic lesions are noted within the bony skeleton. DJD. Pedicular screws on the left from L4 through S1 and L4-L5 level on the right PAGE 1 Signed Report (CONTINUED) Name: MARLEN NOLAND [facility] : 1945 Age/S: 74 / M [address] Unit #: [id number] Loc: [place] [address] Phys: Maikol Tillman MD Acct: [id number] Dis Date: Status: ADM IN P ANNA #: [phone] Exam Date: 05/02/2019 0819 FAX #: [phone] Reason: ACUTE BLOOD LOSS ANEMIA EX AMS: CPT CODE: [id number] CT A BD PELVIS W/O CONT 23899 <Continued> side. Anatomic alignment. Sclerosis of the vertebral bodies from L2 through S1 level. IMPRESSION: Normal appendix without bowel obstruction or colitis or diverticulitis or enteritis. No intraperitoneal or retroperitoneal hemorrhage or subcutaneous hemorrha ge. No hydroureteronephrosis with decompressed urinary bladder with Nvearez catheter. Bosniak 1 lesion in the left lower pole measured 4 .3 cm. at 0 942 Reported and signed by: Perez Pollack M.D. CC: Maikol Hendrickson Tiara hnologist:Hieu Sin RT(R),(MR),(CT); CTDI: DLP: Trnscb Date/T rafael: 05/02/2019 (0942) t.[email or web address] Orig Print D/T: S: 05/02 (0945) PAGE 2 Signed Report [id number] 06:28:00* Test Item Value Reference Range Interpretation Comments GLUBED (test code = GLUBED) 149 mg/dL 74-106 H Performed by certified butadiene convertor operator at [facility] BASIC METABOLIC [id number] 05:48:00* Test Item Value Reference Range Interpretation Comments SODIUM (test code = NA) 141 mmol/L 136-145 N POTASSIUM (test code = K) 3.6 mmol/L 3.5-5.1 N CHLORIDE (test code = CL) 105.0 mmol/L 98-107 N CARBON DIOXIDE (test code = CO2) 31.0 mmol/L 21-32 N ANION GAP (test code = GAP) 8.6 10-20 L GLUCOSE (test code = GLU) 182 mg/dL 74-106 H BLOOD UREA NITROGEN (test code = BUN) 14 mg/dL 7-18 N GLOMERULAR FILTRATION RATE (test code = GFR) > 60 mL/min >=60 Estimated GFR by using Modified MDRD formula.Chronic kidney disease is defined as either kidney damageor GFR <60 mL/min/1.73 m2 for >3 months. CREATININE (test code = CREAT) 1.00 mg/dL 0.7-1.3 N BUN/CREATININE RATIO (test code = BUN/CREA) 14.0 10-20 N CALCIUM (test code = CA) 8.6 mg/dL 8.5-10.1 N BASIC METABOLIC [id number] 05:43:00* Test Item Value Reference Range Interpretation Comments SODIUM (test code = NA) 141 mmol/L 136-145 N POTASSIUM (test code = K) 3.6 mmol/L 3.5-5.1 N CHLORIDE (test code = CL) 105.0 mmol/L 98-107 N CARBON DIOXIDE (test code = CO2) mmol/L 21-32 ANION GAP (test code = GAP) 10-20 GLUCOSE (test code = GLU) mg/dL 74-106 BLOOD UREA NITROGEN (test code = BUN) mg/dL 7-18 GLOMERULAR FILTRATION RATE (test code = GFR) mL/min >=60 CREATININE (test code = CREAT) mg/dL 0.7-1.3 BUN/CREATININE RATIO (test code = BUN/CREA) 10-20 CALCIUM (test code = CA) mg/dL 8.5-10.1 CBC W/AUTO [id number] 05:37:00* Test Item Value Reference Range Interpretation Comments WHITE BLOOD CELL (test code = WBC) 5.5 K/mm3 4.5-12.5 N RED BLOOD CELL (test code = RBC) 3.33 mill/mm3 4.0-5.8 L HEMOGLOBIN (test code = HGB) 9.8 gram/dL 13.0-17.5 L HEMATOCRIT (test code = HCT) 30.1 % 42.0-52.0 L MEAN CELL VOLUME (test code = MCV) 90.4 fL 80-98 N MEAN CELL HGB (test code = MCH) 29.4 picogram 27.0-33.0 N MEAN CELL HGB CONCETRATION (test code = MCHC) 32.6 gram/dL 33.0-36. 0 L RED CELL DISTRIBUTION WIDTH (test code = RDW) 16.7 % 11.6-16. 2 H RED CELL DISTRIBUTION WIDTH SD (test code = RDW-SD) 55.4 fL 37 .0-51.0 H PLATELET COUNT (test code = PLT) 195 K/mm3 150-450 N MEAN PLATELET VOLUME (test code = MPV) 10.8 fL 6.7-11.0 N NEUTROPHIL % (test code = NT%) 58.7 % 39.0-69.0 N IMMATURE GRANULOCYTE % (test code = IG%) 0.4 % 0.0-5.0 N LYMPHOCYTE % (test code = LY%) 21.2 % 25.0-55.0 L MONOCYTE % (test code = MO%) 12.1 % 0.0-10.0 H EOSINOPHIL % (test code = EO%) 7.1 % 0.0-5.0 H BASOPHIL % (test code = BA%) 0.5 % 0.0-1.0 N NUCLEATED RBC % (test code = NRBC%) 0.0 % 0-0 N NEUTROPHIL # (test code = NT#) 3.24 K/mm3 1.8-7.7 N IMMATURE GRANULOCYTE # (test code = IG#) 0.02 x10 3/uL 0-0.03 N LYMPHOCYTE # (test code = LY#) 1.17 K/mm3 1.0-5.0 N MONOCYTE # (test code = MO#) 0.67 K/mm3 0-0.8 N EOSINOPHIL # (test code = EO#) 0.39 K/mm3 0.0-0.5 N BASOPHIL # (test code = BA#) 0.03 K/mm3 0.0-0.2 N NUCLEATED RBC # (test code = NRBC#) 0.00 K/mm3 0.0-0.1 N BASIC METABOLIC [id number] 02:14:00* Test Item Value Reference Range Interpretation Comments SODIUM (test code = NA) 141 mmol/L 136-145 N POTASSIUM (test code = K) 3.8 mmol/L 3.5-5.1 N CHLORIDE (test code = CL) 106.0 mmol/L 98-107 N CARBON DIOXIDE (test code = CO2) 29.0 mmol/L 21-32 N ANION GAP (test code = GAP) 9.8 10-20 L GLUCOSE (test code = GLU) 208 mg/dL 74-106 H BLOOD UREA NITROGEN (test code = BUN) 15 mg/dL 7-18 N GLOMERULAR FILTRATION RATE (test code = GFR) > 60 mL/min >=60 Estimated GFR by using Modified MDRD formula.Chronic kidney disease is defined as either kidney damageor GFR <60 mL/min/1.73 m2 for >3 months. CREATININE (test code = CREAT) 0.90 mg/dL 0.7-1.3 N BUN/CREATININE RATIO (test code = BUN/CREA) 16.7 10-20 N CALCIUM (test code = CA) 8.7 mg/dL 8.5-10.1 N [id number] 02:14:00* Test Item Value Reference Range Interpretation Comments PHOSPHORUS (test code = PHOS) 2.4 mg/dL 2.5-4.9 L [id number] 02:14:00* Test Item Value Reference Range Interpretation Comments MAGNESIUM (test code = MAG) 1.6 mg/dL 1.8-2.4 L CALCIUM [id number] 02:14:00* Test Item Value Reference Range Interpretation Comments CALCIUM IONIZED (test code = ALIVIA) 1.30 mmol/L 1.12-1.32 N CBC W/AUTO [id number] 01:50:00* Test Item Value Reference Range Interpretation Comments WHITE BLOOD CELL (test code = WBC) 4.8 K/mm3 4.5-12.5 N RED BLOOD CELL (test code = RBC) 3.07 mill/mm3 4.0-5.8 L HEMOGLOBIN (test code = HGB) 9.2 gram/dL 13.0-17.5 L RESULT VERIFIED BY REPEAT ANALYSIS HEMATOCRIT (test code = HCT) 27.8 % 42.0-52.0 L MEAN CELL VOLUME (test code = MCV) 90.6 fL 80-98 RESULT VERIFIED BY REPEAT ANALYSIS MEAN CELL HGB (test code = MCH) 30.0 picogram 27.0-33.0 N MEAN CELL HGB CONCETRATION (test code = MCHC) 33.1 gram/dL 33.0-36. 0 N RED CELL DISTRIBUTION WIDTH (test code = RDW) 16.6 % 11.6-16. 2 H RED CELL DISTRIBUTION WIDTH SD (test code = RDW-SD) 54.7 fL 37 .0-51.0 H PLATELET COUNT (test code = PLT) 175 K/mm3 150-450 N MEAN PLATELET VOLUME (test code = MPV) 11.0 fL 6.7-11.0 N NEUTROPHIL % (test code = NT%) 55.0 % 39.0-69.0 N IMMATURE GRANULOCYTE % (test code = IG%) 0.4 % 0.0-5.0 N LYMPHOCYTE % (test code = LY%) 25.2 % 25.0-55.0 N MONOCYTE % (test code = MO%) 12.8 % 0.0-10.0 H EOSINOPHIL % (test code = EO%) 5.8 % 0.0-5.0 H BASOPHIL % (test code = BA%) 0.8 % 0.0-1.0 N NUCLEATED RBC % (test code = NRBC%) 0.0 % 0-0 N NEUTROPHIL # (test code = NT#) 2.66 K/mm3 1.8-7.7 N IMMATURE GRANULOCYTE # (test code = IG#) 0.02 x10 3/uL 0-0.03 N LYMPHOCYTE # (test code = LY#) 1.22 K/mm3 1.0-5.0 N MONOCYTE # (test code = MO#) 0.62 K/mm3 0-0.8 N EOSINOPHIL # (test code = EO#) 0.28 K/mm3 0.0-0.5 N BASOPHIL # (test code = BA#) 0.04 K/mm3 0.0-0.2 N NUCLEATED RBC # (test code = NRBC#) 0.00 K/mm3 0.0-0.1 N MANUAL DIFF REQUIRED (test code = MDIFF) NO BASIC METABOLIC [id number] 01:45:00* Test Item Value Reference Range Interpretation Comments SODIUM (test code = NA) 141 mmol/L 136-145 N POTASSIUM (test code = K) 3.8 mmol/L 3.5-5.1 N CHLORIDE (test code = CL) 106.0 mmol/L 98-107 N CARBON DIOXIDE (test code = CO2) 29.0 mmol/L 21-32 N ANION GAP (test code = GAP) 9.8 10-20 L GLUCOSE (test code = GLU) 208 mg/dL 74-106 H BLOOD UREA NITROGEN (test code = BUN) 15 mg/dL 7-18 N GLOMERULAR FILTRATION RATE (test code = GFR) > 60 mL/min >=60 Estimated GFR by using Modified MDRD formula.Chronic kidney disease is defined as either kidney damageor GFR <60 mL/min/1.73 m2 for >3 months. CREATININE (test code = CREAT) 0.90 mg/dL 0.7-1.3 N BUN/CREATININE RATIO (test code = BUN/CREA) 16.7 10-20 N CALCIUM (test code = CA) 8.7 mg/dL 8.5-10.1 N [id number] 01:45:00* Test Item Value Reference Range Interpretation Comments PHOSPHORUS (test code = PHOS) 2.4 mg/dL 2.5-4.9 L [id number] 01:45:00* Test Item Value Reference Range Interpretation Comments MAGNESIUM (test code = MAG) 1.6 mg/dL 1.8-2.4 L CALCIUM [id number] 01:45:00* Test Item Value Reference Range Interpretation Comments CALCIUM IONIZED (test code = ALIVIA) mmol/L 1.12-1.32 BASIC METABOLIC [id number] 01:40:00* Test Item Value Reference Range Interpretation Comments SODIUM (test code = NA) 141 mmol/L 136-145 N POTASSIUM (test code = K) 3.8 mmol/L 3.5-5.1 N CHLORIDE (test code = CL) 106.0 mmol/L 98-107 N CARBON DIOXIDE (test code = CO2) mmol/L 21-32 ANION GAP (test code = GAP) 10-20 GLUCOSE (test code = GLU) mg/dL 74-106 BLOOD UREA NITROGEN (test code = BUN) mg/dL 7-18 GLOMERULAR FILTRATION RATE (test code = GFR) mL/min >=60 CREATININE (test code = CREAT) mg/dL 0.7-1.3 BUN/CREATININE RATIO (test code = BUN/CREA) 10-20 CALCIUM (test code = CA) mg/dL 8.5-10.1 [id number] 01:40:00* Test Item Value Reference Range Interpretation Comments PHOSPHORUS (test code = PHOS) mg/dL 2.5-4.9 [id number] 01:40:00* Test Item Value Reference Range Interpretation Comments MAGNESIUM (test code = MAG) mg/dL 1.8-2.4 CALCIUM [id number] 01:40:00* Test Item Value Reference Range Interpretation Comments CALCIUM IONIZED (test code = ALIVIA) mmol/L 1.12-1.32 [id number] 20:36:00* Test Item Value Reference Range Interpretation Comments GLUBED (test code = GLUBED) 217 mg/dL 74-106 H Performed by certified butadiene convertor operator at [facility] [id number] 17:17:00* Test Item Value Reference Range Interpretation Comments GLUBED (test code = GLUBED) 194 mg/dL 74-106 H Performed by certified butadiene convertor operator at [facility] [id number] 11:28:00* Test Item Value Reference Range Interpretation Comments GLUBED (test code = GLUBED) 271 mg/dL 74-106 H Performed by certified butadiene convertor operator at [facility] [id number] 06:47:00* Test Item Value Reference Range Interpretation Comments GLUBED (test code = GLUBED) 180 mg/dL 74-106 H Performed by certified [facility]adiene convertor [facility]ified Nurse~ [id number] 03:59:00* Test Item Value Reference Range Interpretation Comments GLUBED (test code = GLUBED) 165 mg/dL 74-106 H Performed by certified butadiene convertor operator at [facility] BASIC METABOLIC [id number] 03:22:00* Test Item Value Reference Range Interpretation Comments SODIUM (test code = NA) 140 mmol/L 136-145 N POTASSIUM (test code = K) 3.5 mmol/L 3.5-5.1 N CHLORIDE (test code = CL) 109.0 mmol/L 98-107 H CARBON DIOXIDE (test code = CO2) 24.0 mmol/L 21-32 N ANION GAP (test code = GAP) 10.5 10-20 N GLUCOSE (test code = GLU) 230 mg/dL 74-106 H BLOOD UREA NITROGEN (test code = BUN) 20 mg/dL 7-18 H GLOMERULAR FILTRATION RATE (test code = GFR) > 60 mL/min >=60 Estimated GFR by using Modified MDRD formula.Chronic kidney disease is defined as either kidney damageor GFR <60 mL/min/1.73 m2 for >3 months. CREATININE (test code = CREAT) 1.00 mg/dL 0.7-1.3 N BUN/CREATININE RATIO (test code = BUN/CREA) 20.0 10-20 N CALCIUM (test code = CA) 7.9 mg/dL 8.5-10.1 L [id number] 03:22:00* Test Item Value Reference Range Interpretation Comments PHOSPHORUS (test code = PHOS) 2.2 mg/dL 2.5-4.9 L [id number] 03:22:00* Test Item Value Reference Range Interpretation Comments MAGNESIUM (test code = MAG) 1.7 mg/dL 1.8-2.4 L CALCIUM [id number] 03:22:00* Test Item Value Reference Range Interpretation Comments CALCIUM IONIZED (test code = ALIVIA) 1.24 mmol/L 1.12-1.32 N BASIC METABOLIC [id number] 02:53:00* Test Item Value Reference Range Interpretation Comments SODIUM (test code = NA) 140 mmol/L 136-145 N POTASSIUM (test code = K) 3.5 mmol/L 3.5-5.1 N CHLORIDE (test code = CL) 109.0 mmol/L 98-107 H CARBON DIOXIDE (test code = CO2) 24.0 mmol/L 21-32 N ANION GAP (test code = GAP) 10.5 10-20 N GLUCOSE (test code = GLU) 230 mg/dL 74-106 H BLOOD UREA NITROGEN (test code = BUN) 20 mg/dL 7-18 H GLOMERULAR FILTRATION RATE (test code = GFR) > 60 mL/min >=60 Estimated GFR by using Modified MDRD formula.Chronic kidney disease is defined as either kidney damageor GFR <60 mL/min/1.73 m2 for >3 months. CREATININE (test code = CREAT) 1.00 mg/dL 0.7-1.3 N BUN/CREATININE RATIO (test code = BUN/CREA) 20.0 10-20 N CALCIUM (test code = CA) 7.9 mg/dL 8.5-10.1 L [id number] 02:53:00* Test Item Value Reference Range Interpretation Comments PHOSPHORUS (test code = PHOS) 2.2 mg/dL 2.5-4.9 L [id number] 02:53:00* Test Item Value Reference Range Interpretation Comments MAGNESIUM (test code = MAG) 1.7 mg/dL 1.8-2.4 L CALCIUM [id number] 02:53:00* Test Item Value Reference Range Interpretation Comments CALCIUM IONIZED (test code = ALIVIA) mmol/L 1.12-1.32 CBC W/AUTO [id number] 02:44:00* Test Item Value Reference Range Interpretation Comments WHITE BLOOD CELL (test code = WBC) 3.0 K/mm3 4.5-12.5 L RED BLOOD CELL (test code = RBC) 2.22 mill/mm3 4.0-5.8 L HEMOGLOBIN (test code = HGB) 6.5 gram/dL 13.0-17.5 L HEMATOCRIT (test code = HCT) 21.2 % 42.0-52.0 LL Results called to [id number] by RAFAEL 05/01/19 [id number] results verified and read back by Nurse? Y MEAN CELL VOLUME (test code = MCV) 95.5 fL 80-98 N MEAN CELL HGB (test code = MCH) 29.3 picogram 27.0-33.0 N MEAN CELL HGB CONCETRATION (test code = MCHC) 30.7 gram/dL 33.0-36. 0 L RED CELL DISTRIBUTION WIDTH (test code = RDW) 15.9 % 11.6-16. 2 N RED CELL DISTRIBUTION WIDTH SD (test code = RDW-SD) 55.4 fL 37 .0-51.0 H PLATELET COUNT (test code = PLT) 138 K/mm3 150-450 L MEAN PLATELET VOLUME (test code = MPV) 11.3 fL 6.7-11.0 H NEUTROPHIL % (test code = NT%) 80.4 % 39.0-69.0 H IMMATURE GRANULOCYTE % (test code = IG%) 1.0 % 0.0-5.0 N LYMPHOCYTE % (test code = LY%) 10.8 % 25.0-55.0 L MONOCYTE % (test code = MO%) 4.4 % 0.0-10.0 N EOSINOPHIL % (test code = EO%) 2.7 % 0.0-5.0 N BASOPHIL % (test code = BA%) 0.7 % 0.0-1.0 N NUCLEATED RBC % (test code = NRBC%) 0.0 % 0-0 N NEUTROPHIL # (test code = NT#) 2.37 K/mm3 1.8-7.7 N IMMATURE GRANULOCYTE # (test code = IG#) 0.03 x10 3/uL 0-0.03 N LYMPHOCYTE # (test code = LY#) 0.32 K/mm3 1.0-5.0 L MONOCYTE # (test code = MO#) 0.13 K/mm3 0-0.8 N EOSINOPHIL # (test code = EO#) 0.08 K/mm3 0.0-0.5 N BASOPHIL # (test code = BA#) 0.02 K/mm3 0.0-0.2 N NUCLEATED RBC # (test code = NRBC#) 0.00 K/mm3 0.0-0.1 N MANUAL DIFF REQUIRED (test code = MDIFF) NO BASIC METABOLIC [id number] 02:43:00* Test Item Value Reference Range Interpretation Comments SODIUM (test code = NA) 140 mmol/L 136-145 N POTASSIUM (test code = K) 3.5 mmol/L 3.5-5.1 N CHLORIDE (test code = CL) 109.0 mmol/L 98-107 H CARBON DIOXIDE (test code = CO2) mmol/L 21-32 ANION GAP (test code = GAP) 10-20 GLUCOSE (test code = GLU) mg/dL 74-106 BLOOD UREA NITROGEN (test code = BUN) 20 mg/dL 7-18 H GLOMERULAR FILTRATION RATE (test code = GFR) mL/min >=60 CREATININE (test code = CREAT) mg/dL 0.7-1.3 BUN/CREATININE RATIO (test code = BUN/CREA) 10-20 CALCIUM (test code = CA) 7.9 mg/dL 8.5-10.1 L [id number] 02:43:00* Test Item Value Reference Range Interpretation Comments PHOSPHORUS (test code = PHOS) mg/dL 2.5-4.9 [id number] 02:43:00* Test Item Value Reference Range Interpretation Comments MAGNESIUM (test code = MAG) mg/dL 1.8-2.4 CALCIUM [id number] 02:43:00* Test Item Value Reference Range Interpretation Comments CALCIUM IONIZED (test code = ALIVIA) mmol/L 1.12-1.32 [id number] 21:38:00* Test Item Value Reference Range Interpretation Comments GLUBED (test code = GLUBED) 329 mg/dL 74-106 H [facility]~ [id number] 16:36:00* Test Item Value Reference Range Interpretation Comments GLUBED (test code = GLUBED) 215 mg/dL 74-106 H Performed by certified butadiene convertor operator at [facility] ARTERIAL BLOOD [id number] 10:34:00* Test Item Value Reference Range Interpretation Comments ARTERIAL BLOOD GAS PH (test code = PHA) 7.35 7.35-7.45 N ARTERIAL BLOOD GAS PCO2 (test code = PCO2A) 45.2 mm Hg 35-45 H ARTERIAL BLOOD GAS PO2 (test code = PO2A) 190.2 mmHg 80-100 H BICARBONATE TOTAL HCO3 (test code = HCO3) 24.3 mmol/L 23.0-27.0 N BASE EXCESS (test code = RHEA) -1.4 mmol/L -3.0-5.0 N ABG O2 SATURATION (test code = SATA) 98.4 % 90.0-98.0 H ABG TYPE (test code = TYPEA) Arterial FIO2 (test code = FIO2A) 45.0 MODIFIED ALLENS (test code = MODALL) Unable CHECK PERFORMED SODIUM (test code = NA/ABG) 139.4 mEq/L 135-148 N POTASSIUM (test code = K/ABG) 3.8 mEq/L 3.5-4.5 N CHLORIDE (test code = CL/ABG) 109 mEq/L 98-106 H GLUCOSE (test code = GLU/ABG) 126 mg/dL 74-99 H HEMATOCRIT (test code = HCT/ABG) 29 % 42-52 L IONIZED CALCIUM (test code = CAIABG) 1.17 mmol/L 1.1-1.37 N TOTAL HGB (test code = THB) 10.0 gram/dL 13.0-17.5 L HGB O2 SAT (test code = HBOSAT) 97.8 % 94.00-98.00 N CARBOXYHEMOGLOBIN (test code = HOHGBT) 0.3 %totalHg 0.5-1.5 LL Results called to and read back by DR. Helm 10: - 04/28/2019; by BOWEN METHEMOGLOBIN (test code = METHGB) 0.3 % 0.0-1.50 N O2 CONTENT (test code = O2CT) 14.2 % vol 18.0-22.0 L [id number] 10:33:00* Test Item Value Reference Range Interpretation Comments GLUBED (test code = GLUBED) 162 mg/dL 74-106 H Performed by certified butadiene convertor operator at [facility] [id number] 07:52:00* Test Item Value Reference Range Interpretation Comments GLUBED (test code = GLUBED) 138 mg/dL 74-106 H Performed by certified butadiene convertor operator at [facility] BASIC METABOLIC [id number] 03:16:00* Test Item Value Reference Range Interpretation Comments SODIUM (test code = NA) 141 mmol/L 136-145 N POTASSIUM (test code = K) 3.9 mmol/L 3.5-5.1 N CHLORIDE (test code = CL) 111.0 mmol/L 98-107 H CARBON DIOXIDE (test code = CO2) 26.0 mmol/L 21-32 N ANION GAP (test code = GAP) 7.9 10-20 L GLUCOSE (test code = GLU) 184 mg/dL 74-106 H BLOOD UREA NITROGEN (test code = BUN) 18 mg/dL 7-18 N GLOMERULAR FILTRATION RATE (test code = GFR) > 60 mL/min >=60 Estimated GFR by using Modified MDRD formula.Chronic kidney disease is defined as either kidney damageor GFR <60 mL/min/1.73 m2 for >3 months. CREATININE (test code = CREAT) 1.00 mg/dL 0.7-1.3 N BUN/CREATININE RATIO (test code = BUN/CREA) 18.0 10-20 N CALCIUM (test code = CA) 8.0 mg/dL 8.5-10.1 L [id number] 03:16:00* Test Item Value Reference Range Interpretation Comments PHOSPHORUS (test code = PHOS) 2.9 mg/dL 2.5-4.9 N [id number] 03:16:00* Test Item Value Reference Range Interpretation Comments MAGNESIUM (test code = MAG) 1.9 mg/dL 1.8-2.4 N CALCIUM [id number] 03:16:00* Test Item Value Reference Range Interpretation Comments CALCIUM IONIZED (test code = ALIVIA) 1.24 mmol/L 1.12-1.32 N BASIC METABOLIC [id number] 03:14:00* Test Item Value Reference Range Interpretation Comments SODIUM (test code = NA) 141 mmol/L 136-145 N POTASSIUM (test code = K) 3.9 mmol/L 3.5-5.1 N CHLORIDE (test code = CL) 111.0 mmol/L 98-107 H CARBON DIOXIDE (test code = CO2) 26.0 mmol/L 21-32 N ANION GAP (test code = GAP) 7.9 10-20 L GLUCOSE (test code = GLU) 184 mg/dL 74-106 H BLOOD UREA NITROGEN (test code = BUN) 18 mg/dL 7-18 N GLOMERULAR FILTRATION RATE (test code = GFR) > 60 mL/min >=60 Estimated GFR by using Modified MDRD formula.Chronic kidney disease is defined as either kidney damageor GFR <60 mL/min/1.73 m2 for >3 months. CREATININE (test code = CREAT) 1.00 mg/dL 0.7-1.3 N BUN/CREATININE RATIO (test code = BUN/CREA) 18.0 10-20 N CALCIUM (test code = CA) 8.0 mg/dL 8.5-10.1 L [id number] 03:14:00* Test Item Value Reference Range Interpretation Comments PHOSPHORUS (test code = PHOS) 2.9 mg/dL 2.5-4.9 N [id number] 03:14:00* Test Item Value Reference Range Interpretation Comments MAGNESIUM (test code = MAG) 1.9 mg/dL 1.8-2.4 N CALCIUM [id number] 03:14:00* Test Item Value Reference Range Interpretation Comments CALCIUM IONIZED (test code = ALIVIA) mmol/L 1.12-1.32 BASIC METABOLIC [id number] 03:02:00* Test Item Value Reference Range Interpretation Comments SODIUM (test code = NA) 141 mmol/L 136-145 N POTASSIUM (test code = K) 3.9 mmol/L 3.5-5.1 N CHLORIDE (test code = CL) 111.0 mmol/L 98-107 H CARBON DIOXIDE (test code = CO2) mmol/L 21-32 ANION GAP (test code = GAP) 10-20 GLUCOSE (test code = GLU) mg/dL 74-106 BLOOD UREA NITROGEN (test code = BUN) mg/dL 7-18 GLOMERULAR FILTRATION RATE (test code = GFR) mL/min >=60 CREATININE (test code = CREAT) mg/dL 0.7-1.3 BUN/CREATININE RATIO (test code = BUN/CREA) 10-20 CALCIUM (test code = CA) mg/dL 8.5-10.1 [id number] 03:02:00* Test Item Value Reference Range Interpretation Comments PHOSPHORUS (test code = PHOS) mg/dL 2.5-4.9 [id number] 03:02:00* Test Item Value Reference Range Interpretation Comments MAGNESIUM (test code = MAG) mg/dL 1.8-2.4 CALCIUM [id number] 03:02:00* Test Item Value Reference Range Interpretation Comments CALCIUM IONIZED (test code = ALIVIA) mmol/L 1.12-1.32 CBC W/AUTO [id number] 02:57:00* Test Item Value Reference Range Interpretation Comments WHITE BLOOD CELL (test code = WBC) 5.3 K/mm3 4.5-12.5 N RED BLOOD CELL (test code = RBC) 2.62 mill/mm3 4.0-5.8 L HEMOGLOBIN (test code = HGB) 7.8 gram/dL 13.0-17.5 L HEMATOCRIT (test code = HCT) 24.0 % 42.0-52.0 L MEAN CELL VOLUME (test code = MCV) 91.6 fL 80-98 N MEAN CELL HGB (test code = MCH) 29.8 picogram 27.0-33.0 N MEAN CELL HGB CONCETRATION (test code = MCHC) 32.5 gram/dL 33.0-36. 0 L RED CELL DISTRIBUTION WIDTH (test code = RDW) 16.0 % 11.6-16. 2 N RED CELL DISTRIBUTION WIDTH SD (test code = RDW-SD) 53.7 fL 37 .0-51.0 H PLATELET COUNT (test code = PLT) 141 K/mm3 150-450 L MEAN PLATELET VOLUME (test code = MPV) 10.8 fL 6.7-11.0 N NEUTROPHIL % (test code = NT%) 85.5 % 39.0-69.0 H IMMATURE GRANULOCYTE % (test code = IG%) 0.4 % 0.0-5.0 N LYMPHOCYTE % (test code = LY%) 7.5 % 25.0-55.0 L MONOCYTE % (test code = MO%) 5.8 % 0.0-10.0 N EOSINOPHIL % (test code = EO%) 0.6 % 0.0-5.0 N BASOPHIL % (test code = BA%) 0.2 % 0.0-1.0 N NUCLEATED RBC % (test code = NRBC%) 0.0 % 0-0 N NEUTROPHIL # (test code = NT#) 4.53 K/mm3 1.8-7.7 N IMMATURE GRANULOCYTE # (test code = IG#) 0.02 x10 3/uL 0-0.03 N LYMPHOCYTE # (test code = LY#) 0.40 K/mm3 1.0-5.0 L MONOCYTE # (test code = MO#) 0.31 K/mm3 0-0.8 N EOSINOPHIL # (test code = EO#) 0.03 K/mm3 0.0-0.5 N BASOPHIL # (test code = BA#) 0.01 K/mm3 0.0-0.2 N NUCLEATED RBC # (test code = NRBC#) 0.00 K/mm3 0.0-0.1 N MANUAL DIFF REQUIRED (test code = MDIFF) NO [id number] 17:27:00* Test Item Value Reference Range Interpretation Comments GLUBED (test code = GLUBED) 132 mg/dL 74-106 H Performed by certified butadiene convertor operator at [facility] [id number] 12:13:00* Test Item Value Reference Range Interpretation Comments GLUBED (test code = GLUBED) 102 mg/dL 74-106 N Performed by certified butadiene convertor operator at [facility] HGB [id number] 04:20:00* Test Item Value Reference Range Interpretation Comments HEMOGLOBIN (test code = HGB) 8.0 gram/dL 13.0-17.5 L HEMATOCRIT (test code = HCT) 25.1 % 42.0-52.0 L - XR CHEST 1 [id number] 02:44:00 FAX: Maikol Capps [facility] [phone] [place]: B St: [facility] FAX: Jaime Zapata NP Name: MARLEN NOLAND [facility] : 1945 Age/S: 74/M [address] Unit #: [id number] Loc: V.S02 [place] [address] Phys: Jaime Zapata [employer] Acct: [id number] Dis Date: Status: ADM IN PHONE #: [phone] Exam Date: 04/29/2019 021 FAX #: [phone] Reason: s/p fem pop bypass 04/28/19 EXAMS: CPT CODE: [id number] XR CHEST 1 V 19328 LOCATION: T18 EXAM: CHEST 1 VIEW INDICATION: s/p fem pop bypass 04/28/19 COMPARISON: Chest x-ray April 28, 2019 TECHNIQUE: AP chest radiograph. FINDINGS: Right IJ catheter is unchanged. Bilateral airspace opacities unchanged. Heart is normal in size. Patient status post median sternotomy. Bones and peripheral soft tissues are unremarkable. IMPRESSION: Unchanged bilateral airspace opacity. at 0244 Reported and signed by: Elieser Masters M.D. CC: Maikol Hendrickson; Jaime Zapata NP Technologist: Marcus Deng RT(R); SARIAH DOCKERY RT(R) Trnscrd Date/Time/By: 04/29/2019 (0244) : By: [email or web address] Orig Print D/T: S: 04/29/2019 (0248) PAGE 1 Signed Report COMPREHENSIVE METABOLIC PANEL 2019-04-29 01:00:00* Test Item Value Reference Range Interpretation Comments SODIUM (test code = NA) 147 mmol/L 136-145 H POTASSIUM (test code = K) 3.8 mmol/L 3.5-5.1 N CHLORIDE (test code = CL) 116.0 mmol/L 98-107 H CARBON DIOXIDE (test code = CO2) 25.0 mmol/L 21-32 N ANION GAP (test code = GAP) 9.8 10-20 L GLUCOSE (test code = GLU) 121 mg/dL 74-106 H BLOOD UREA NITROGEN (test code = BUN) 16 mg/dL 7-18 N GLOMERULAR FILTRATION RATE (test code = GFR) > 60 mL/min >=60 Estimated GFR by using Modified MDRD formula.Chronic kidney disease is defined as either kidney damageor GFR <60 mL/min/1.73 m2 for >3 months. CREATININE (test code = CREAT) 0.80 mg/dL 0.7-1.3 N BUN/CREATININE RATIO (test code = BUN/CREA) 20.0 10-20 N TOTAL PROTEIN (test code = PROT) 4.1 gram/dL 6.4-8.2 L ALBUMIN (test code = ALB) 2.0 g/dL 3.4-5.0 L GLOBULIN (test code = GLOB) 2.1 gram/dL 2.7-4.2 L ALBUMIN/GLOBULIN RATIO (test code = A/G) 1.0 0.75-1.50 N CALCIUM (test code = CA) 7.4 mg/dL 8.5-10.1 L BILIRUBIN TOTAL (test code = BILT) 0.20 mg/dL 0.0-1.0 N SGOT/AST (test code = AST) 15 IUnit/L 15-37 N SGPT/ALT (test code = ALT) 10 IUnit/L 12-78 L ALKALINE PHOSPHATASE TOTAL (test code = ALKP) 29 IUnit/L 45-117 L Note change in reference range due to change in reagent. LIPID PROFILE (CORONARY RISK)2019-04-29 01:00:00* Test Item Value Reference Range Interpretation Comments TRIGLYCERIDES (test code = TRIG) 44 mg/dL 20-150 N CHOLESTEROL (test code = CHOL) 56 mg/dL 0-200 N CHOLESTEROL/HDL RATIO (test code = CHOLHDL) 1.0 RATIO 0-4.9 N RISK ASSOCIATED WITH CHOL/HDL RATIOS: Risk Male Female1/2 AVERAGE 3.43 3.27AVERAGE 4.97 4.442X AVERAGE 9.55 7.053X AVERAGE 23.39 11.04 REFERENCE VALUE IS RELATED TO RISK LEVELS ASRECOMMENDED BY THE [facility]. HEART, LUNG, AND BLOOD INST. HDL CHOLESTEROL (test code = HDL) 33 mg/dL 40-60 L LIPOPROTEIN LDL (test code = LDL) 20 mg/dL 100-129 L Reference Interval: mg/dL mmol/L Optimal <100 <2.6Near/above optimal 100-129 2.6- 3.3Borderline High 130-159 3.4-4.1High 160-189 4.1-4.9Very High >=190 >=4.9========= This LDL result is a direct measurement.========= [id number] 01:00:00* Test Item Value Reference Range Interpretation Comments MAGNESIUM (test code = MAG) 1.4 mg/dL 1.8-2.4 L COMPREHENSIVE METABOLIC [id number] 00:47:00* Test Item Value Reference Range Interpretation Comments SODIUM (test code = NA) 147 mmol/L 136-145 H POTASSIUM (test code = K) 3.8 mmol/L 3.5-5.1 N CHLORIDE (test code = CL) 116.0 mmol/L 98-107 H CARBON DIOXIDE (test code = CO2) 25.0 mmol/L 21-32 N ANION GAP (test code = GAP) 9.8 10-20 L GLUCOSE (test code = GLU) 121 mg/dL 74-106 H BLOOD UREA NITROGEN (test code = BUN) 16 mg/dL 7-18 N GLOMERULAR FILTRATION RATE (test code = GFR) > 60 mL/min >=60 Estimated GFR by using Modified MDRD formula.Chronic kidney disease is defined as either kidney damageor GFR <60 mL/min/1.73 m2 for >3 months. CREATININE (test code = CREAT) 0.80 mg/dL 0.7-1.3 N BUN/CREATININE RATIO (test code = BUN/CREA) 20.0 10-20 N TOTAL PROTEIN (test code = PROT) 4.1 gram/dL 6.4-8.2 L ALBUMIN (test code = ALB) 2.0 g/dL 3.4-5.0 L GLOBULIN (test code = GLOB) 2.1 gram/dL 2.7-4.2 L ALBUMIN/GLOBULIN RATIO (test code = A/G) 1.0 0.75-1.50 N CALCIUM (test code = CA) 7.4 mg/dL 8.5-10.1 L BILIRUBIN TOTAL (test code = BILT) 0.20 mg/dL 0.0-1.0 N SGOT/AST (test code = AST) 15 IUnit/L 15-37 N SGPT/ALT (test code = ALT) 10 IUnit/L 12-78 L ALKALINE PHOSPHATASE TOTAL (test code = ALKP) 29 IUnit/L 45-117 L Note change in reference range due to change in reagent. LIPID PROFILE (CORONARY RISK)2019-04-29 00:47:00* Test Item Value Reference Range Interpretation Comments TRIGLYCERIDES (test code = TRIG) mg/dL 20-150 CHOLESTEROL (test code = CHOL) mg/dL 0-200 CHOLESTEROL/HDL RATIO (test code = CHOLHDL) RATIO 0-4.9 HDL CHOLESTEROL (test code = HDL) mg/dL 40-60 LIPOPROTEIN LDL (test code = LDL) mg/dL 100-129 [id number] 00:47:00* Test Item Value Reference Range Interpretation Comments MAGNESIUM (test code = MAG) 1.4 mg/dL 1.8-2.4 L COMPREHENSIVE METABOLIC [id number] 00:13:00* Test Item Value Reference Range Interpretation Comments SODIUM (test code = NA) 147 mmol/L 136-145 H POTASSIUM (test code = K) 3.8 mmol/L 3.5-5.1 N CHLORIDE (test code = CL) 116.0 mmol/L 98-107 H CARBON DIOXIDE (test code = CO2) mmol/L 21-32 ANION GAP (test code = GAP) 10-20 GLUCOSE (test code = GLU) mg/dL 74-106 BLOOD UREA NITROGEN (test code = BUN) mg/dL 7-18 GLOMERULAR FILTRATION RATE (test code = GFR) mL/min >=60 CREATININE (test code = CREAT) mg/dL 0.7-1.3 BUN/CREATININE RATIO (test code = BUN/CREA) 10-20 TOTAL PROTEIN (test code = PROT) gram/dL 6.4-8.2 ALBUMIN (test code = ALB) g/dL 3.4-5.0 GLOBULIN (test code = GLOB) gram/dL 2.7-4.2 ALBUMIN/GLOBULIN RATIO (test code = A/G) 0.75-1.50 CALCIUM (test code = CA) mg/dL 8.5-10.1 BILIRUBIN TOTAL (test code = BILT) mg/dL 0.0-1.0 SGOT/AST (test code = AST) IUnit/L 15-37 SGPT/ALT (test code = ALT) IUnit/L 12-78 ALKALINE PHOSPHATASE TOTAL (test code = ALKP) IUnit/L 45-117 CBC W/AUTO [id number] 00:12:00* Test Item Value Reference Range Interpretation Comments WHITE BLOOD CELL (test code = WBC) 4.3 K/mm3 4.5-12.5 L RED BLOOD CELL (test code = RBC) 2.16 mill/mm3 4.0-5.8 L HEMOGLOBIN (test code = HGB) 6.4 gram/dL 13.0-17.5 L RESULT VERIFIED BY REPEAT ANALYSIS HEMATOCRIT (test code = HCT) 19.8 % 42.0-52.0 LL Results called to [id number] by [email or web address] 04/29/19 0011Critical results verified and read back by Nurse?Y MEAN CELL VOLUME (test code = MCV) 91.7 fL 80-98 N MEAN CELL HGB (test code = MCH) 29.6 picogram 27.0-33.0 N MEAN CELL HGB CONCETRATION (test code = MCHC) 32.3 gram/dL 33.0-36. 0 L RED CELL DISTRIBUTION WIDTH (test code = RDW) 15.9 % 11.6-16. 2 N RED CELL DISTRIBUTION WIDTH SD (test code = RDW-SD) 53.1 fL 37 .0-51.0 H PLATELET COUNT (test code = PLT) 151 K/mm3 150-450 N MEAN PLATELET VOLUME (test code = MPV) 11.0 fL 6.7-11.0 N NEUTROPHIL % (test code = NT%) 81.9 % 39.0-69.0 H IMMATURE GRANULOCYTE % (test code = IG%) 0.5 % 0.0-5.0 N LYMPHOCYTE % (test code = LY%) 11.4 % 25.0-55.0 L MONOCYTE % (test code = MO%) 5.8 % 0.0-10.0 N EOSINOPHIL % (test code = EO%) 0.2 % 0.0-5.0 N BASOPHIL % (test code = BA%) 0.2 % 0.0-1.0 N NUCLEATED RBC % (test code = NRBC%) 0.0 % 0-0 N NEUTROPHIL # (test code = NT#) 3.50 K/mm3 1.8-7.7 N IMMATURE GRANULOCYTE # (test code = IG#) 0.02 x10 3/uL 0-0.03 N LYMPHOCYTE # (test code = LY#) 0.49 K/mm3 1.0-5.0 L MONOCYTE # (test code = MO#) 0.25 K/mm3 0-0.8 N EOSINOPHIL # (test code = EO#) 0.01 K/mm3 0.0-0.5 N BASOPHIL # (test code = BA#) 0.01 K/mm3 0.0-0.2 N NUCLEATED RBC # (test code = NRBC#) 0.00 K/mm3 0.0-0.1 N MANUAL DIFF REQUIRED (test code = MDIFF) NO [id number] 21:40:00* Test Item Value Reference Range Interpretation Comments GLUBED (test code = GLUBED) 107 mg/dL 74-106 H Performed by certified butadiene convertor operator at [facility] - XR CHEST 1 [id number] 16:32:00 FAX: Maikol Capps [facility] [phone] [place]: St: [facility] FAX: Jaime Zapata [employer] Name: MARLEN NOLAND [facility] : 1945 Age/S: 74/M [address] Unit #: [id number] Loc: V.S0 [place] [address] Phys: Jaime Zapata NP Acct: [id number] Dis Date: Status: ADM IN PHONE #: [phone] Exam Date: 04/28/2019 1620 FAX #: [phone] Reason: s/p fempop bypass 04/28/19 EXAMS: CPT CODE: [id number] XR CHEST 1 V 57606 HISTORY: Femoral bypass. COMPARISON: April 06, 2019. Location: [facility]. Right jugular central line is with the tip projected over the SVC. Bibasal subsegmental atelectasis. No acute infiltrates, effusion or congestion. Elevated right hemidiaphragm. Postop changes within the right lung with loss of lung volume and shift the mediastinum towards the right. Cardiomegaly. IMPRESSION: No acute infiltrates, effusion or congestion. Dependent changes. at 1632 Reported and signed by: Perez Pollack M.D. CC: Maikol Hendrickson; Jaime Zapata NP Technologist: Axel Kate, RT(R Trnscrd Date/Time/By: 04/28/2019 (163) : By: [email or web address] Orig Print D/T: S: 04/28/2019 (5807) PAGE 1 Signed Report - XR FEMUR MIN 2 VWS [id number] 15:45:00 FAX: Maikol Capps [phone] [place]: St: ADM Name: MARLEN RODGERS [facility] : [birth year] Age/S: 74/M [address] Unit #: [id number] Loc: V.S02 [place] [address] Phys: Maikol Hendrickson MD Acct: [id number] Dis Date: Status: ADM IN PHONE #: [phone] Exam Date: 04/28/2019 1503 FAX #: [phone] Reason: NEEDLE COUNT OFF EXAMS: CPT CODE: [id number] XR FEMUR MIN [address] [place] [address] HISTORY: Discordant needle count in OR: Location: [facility] COMPARISON: None available. AP and lateral view of the femur and leg on the left side. No needle is noted. Multiple surgical clips along the knee joint and the lateral and medial thigh location. Vascular calcifications. Knee joint is narrowed. Ankle mortise is unremarkable. Hip joint is narrowed. IMPRESSION: No radiopaque foreign body to suggest needle. at 8112 Reported and signed by: Perez Pollack M.D. CC: Maikol Hendrickson Technologist: RT YUDELKA(R) Trnscrd Date/Time/By: 04/28/2019 (1732) : By: [email or web address] Orig Print D/T: S: 04/28/2019 (8123) PAGE 1 Signed Report - XR TIBIA/FIBULA 2 V [id number] 15:45:00 FAX: Yolande Quick MD [phone] [place]: St: ADM FAX: Maikol Capps [phone] Name: MARLEN NOLAND [facility] : 1945 Age/S: 74/M [address] [facility] Unit #: [id number] Loc: V.[address] [place] [address] Phys: Yolande Kelley MD Acct: [id number] Dis Date: Status: ADM IN PHONE #: [phone] Exam Date: 04/28/2019 1503 FAX #: [phone] Reason: NEEDLE COUNT OFF EXAMS: CPT CODE: [id number] XR TIBIA/FIBULA 2 [place] [address] HISTORY: Discordant needle count in OR: Location: [facility] COMPARISON: None available. AP and lateral view of the femur and leg on the left side. No needle is noted. Multiple surgical clips along the knee joint and the lateral and medial thigh loc ation. Vascular calcifications. Knee joint is narrowed. Ankle mortise is u nremarkable. Hip joint is narrowed. IMPRESSION: No radiopaque foreign body to suggest needle. at 1545 Repor bernice and signed by: Perez Pollack M.D. CC: Yolande Kelley MD; Maikol Hendrickson Technologist: RT YUDELKA(Madan) Trnscrd Date/Time/By: 04/28/2019 (1546) : By: [email or web address] Orig Print D/T: S: 04/28/2019 (9076) PAGE 1 Signed Report GLUBED 2019-04-28 15:44:00* Test Item Value Reference Range Interpretation Comments GLUBED (test code = GLUBED) 111 mg/dL 74-106 H Performed by certified butadiene convertor operator at [facility] [id number] 08:12:00* Test Item Value Reference Range Interpretation Comments GLUBED (test code = GLUBED) 114 mg/dL 74-106 H Performed by [facility]adiene [facility]~ [id number] 21:02:00* Test Item Value Reference Range Interpretation Comments GLUBED (test code = GLUBED) 159 mg/dL 74-106 H Performed by certified butadiene convertor operator at [facility] PROTHROMBIN [id number] 17:22:00* Test Item Value Reference Range Interpretation Comments PROTHROMBIN TIME PATIENT (test code = PTP) 12.8 seconds 9.0-14.0 N INTERNATIONAL NORMAL RATIO (test code = INR) 1.1 0.8-1.2 N The therapeutic range for oral anticoagulant therapy [...] (2.5-3.5) IS PATIENT ON ANTICOAGULANTS? NTHROMBOPLASTIN TIME [id number] 17:22:00* Test Item Value Reference Range Interpretation Comments THROMBOPLASTIN TIME PARTIAL (test code = PTT) 33.2 seconds 25.0-36. 5 N IS PATIENT ON ANTICOAGULANTS? NCOMPREHENSIVE METABOLIC [id number] 17:21:00 * Test Item Value Reference Range Interpretation Comments SODIUM (test code = NA) 142 mmol/L 136-145 N POTASSIUM (test code = K) 4.1 mmol/L 3.5-5.1 N CHLORIDE (test code = CL) 108.0 mmol/L 98-107 H CARBON DIOXIDE (test code = CO2) 29.0 mmol/L 21-32 N ANION GAP (test code = GAP) 9.1 10-20 L GLUCOSE (test code = GLU) 164 mg/dL 74-106 H BLOOD UREA NITROGEN (test code = BUN) 17 mg/dL 7-18 N GLOMERULAR FILTRATION RATE (test code = GFR) > 60 mL/min >=60 Estimated GFR by using Modified MDRD formula.Chronic kidney disease is defined as either kidney damageor GFR <60 mL/min/1.73 m2 for >3 months. CREATININE (test code = CREAT) 1.10 mg/dL 0.7-1.3 N BUN/CREATININE RATIO (test code = BUN/CREA) 15.5 10-20 N TOTAL PROTEIN (test code = PROT) 6.0 gram/dL 6.4-8.2 L ALBUMIN (test code = ALB) 2.9 g/dL 3.4-5.0 L GLOBULIN (test code = GLOB) 3.1 gram/dL 2.7-4.2 N ALBUMIN/GLOBULIN RATIO (test code = A/G) 0.9 0.75-1.50 N CALCIUM (test code = CA) 8.4 mg/dL 8.5-10.1 L BILIRUBIN TOTAL (test code = BILT) 0.10 mg/dL 0.0-1.0 N SGOT/AST (test code = AST) 14 IUnit/L 15-37 L SGPT/ALT (test code = ALT) 13 IUnit/L 12-78 N ALKALINE PHOSPHATASE TOTAL (test code = ALKP) 47 IUnit/L 45-117 N Note change in reference range due to change in reagent. [id number] 17:21:00* Test Item Value Reference Range Interpretation Comments MAGNESIUM (test code = MAG) 1.8 mg/dL 1.8-2.4 N COMPREHENSIVE METABOLIC [id number] 17:13:00* Test Item Value Reference Range Interpretation Comments SODIUM (test code = NA) 142 mmol/L 136-145 N POTASSIUM (test code = K) 4.1 mmol/L 3.5-5.1 N CHLORIDE (test code = CL) 108.0 mmol/L 98-107 H CARBON DIOXIDE (test code = CO2) mmol/L 21-32 ANION GAP (test code = GAP) 10-20 GLUCOSE (test code = GLU) mg/dL 74-106 BLOOD UREA NITROGEN (test code = BUN) mg/dL 7-18 GLOMERULAR FILTRATION RATE (test code = GFR) mL/min >=60 CREATININE (test code = CREAT) mg/dL 0.7-1.3 BUN/CREATININE RATIO (test code = BUN/CREA) 10-20 TOTAL PROTEIN (test code = PROT) gram/dL 6.4-8.2 ALBUMIN (test code = ALB) g/dL 3.4-5.0 GLOBULIN (test code = GLOB) gram/dL 2.7-4.2 ALBUMIN/GLOBULIN RATIO (test code = A/G) 0.75-1.50 CALCIUM (test code = CA) mg/dL 8.5-10.1 BILIRUBIN TOTAL (test code = BILT) mg/dL 0.0-1.0 SGOT/AST (test code = AST) IUnit/L 15-37 SGPT/ALT (test code = ALT) IUnit/L 12-78 ALKALINE PHOSPHATASE TOTAL (test code = ALKP) IUnit/L 45-117 [id number] 17:13:00* Test Item Value Reference Range Interpretation Comments MAGNESIUM (test code = MAG) mg/dL 1.8-2.4 CBC W/AUTO [id number] 17:05:00* Test Item Value Reference Range Interpretation Comments WHITE BLOOD CELL (test code = WBC) 4.6 K/mm3 4.5-12.5 N RED BLOOD CELL (test code = RBC) 3.15 mill/mm3 4.0-5.8 L HEMOGLOBIN (test code = HGB) 9.3 gram/dL 13.0-17.5 L HEMATOCRIT (test code = HCT) 29.4 % 42.0-52.0 L MEAN CELL VOLUME (test code = MCV) 93.3 fL 80-98 N MEAN CELL HGB (test code = MCH) 29.5 picogram 27.0-33.0 N MEAN CELL HGB CONCETRATION (test code = MCHC) 31.6 gram/dL 33.0-36. 0 L RED CELL DISTRIBUTION WIDTH (test code = RDW) 15.9 % 11.6-16. 2 N RED CELL DISTRIBUTION WIDTH SD (test code = RDW-SD) 53.5 fL 37 .0-51.0 H PLATELET COUNT (test code = PLT) 168 K/mm3 150-450 N MEAN PLATELET VOLUME (test code = MPV) 11.0 fL 6.7-11.0 N NEUTROPHIL % (test code = NT%) 41.9 % 39.0-69.0 N IMMATURE GRANULOCYTE % (test code = IG%) 0.2 % 0.0-5.0 N LYMPHOCYTE % (test code = LY%) 41.6 % 25.0-55.0 N MONOCYTE % (test code = MO%) 9.9 % 0.0-10.0 N EOSINOPHIL % (test code = EO%) 5.8 % 0.0-5.0 H BASOPHIL % (test code = BA%) 0.6 % 0.0-1.0 N NUCLEATED RBC % (test code = NRBC%) 0.0 % 0-0 N NEUTROPHIL # (test code = NT#) 1.94 K/mm3 1.8-7.7 N IMMATURE GRANULOCYTE # (test code = IG#) 0.01 x10 3/uL 0-0.03 N LYMPHOCYTE # (test code = LY#) 1.93 K/mm3 1.0-5.0 N MONOCYTE # (test code = MO#) 0.46 K/mm3 0-0.8 N EOSINOPHIL # (test code = EO#) 0.27 K/mm3 0.0-0.5 N BASOPHIL # (test code = BA#) 0.03 K/mm3 0.0-0.2 N NUCLEATED RBC # (test code = NRBC#) 0.00 K/mm3 0.0-0.1 N MANUAL DIFF REQUIRED (test code = MDIFF) NO [id number] 16:43:00* Test Item Value Reference Range Interpretation Comments GLUBED (test code = GLUBED) 141 mg/dL 74-106 H [facility] [id number] 12:22:00* Test Item Value Reference Range Interpretation Comments GLUBED (test code = GLUBED) 144 mg/dL 74-106 H Performed by certified [facility]adiene convertor [facility] [id number] 08:37:00* Test Item Value Reference Range Interpretation Comments GLUBED (test code = GLUBED) 105 mg/dL 74-106 N Performed by certified butadiene convertor operator at [facility] PLT RESPONSE TO [id number] 08:18:00* Test Item Value Reference Range Interpretation Comments PLT RESPONSE TO PLAVIX (test code = PLAVRES) 299 PRU 182-335 N Values <180 PRU are specific evidence of a P2Y12 inhibitoreffect PLT RESPONSE TO [id number] 08:18:00* Test Item Value Reference Range Interpretation Comments PLT RESPONSE TO PLAVIX (test code = PLAVRES) 299 PRU 182-335 Values <180 PRU are specific evidence of a P2Y12 inhibitoreffect [id number] 20:03:00* Test Item Value Reference Range Interpretation Comments GLUBED (test code = GLUBED) 127 mg/dL 74-106 H Performed by certified butadiene convertor operator at [facility] [id number] 18:08:00* Test Item Value Reference Range Interpretation Comments GLUBED (test code = GLUBED) 198 mg/dL 74-106 H Performed by certified butadiene convertor operator at [facility] [id number] 13:12:00* Test Item Value Reference Range Interpretation Comments GLUBED (test code = GLUBED) 152 mg/dL 74-106 H Performed by certified butadiene convertor operator at [facility] [id number] 08:31:00* Test Item Value Reference Range Interpretation Comments GLUBED (test code = GLUBED) 97 mg/dL 74-106 N Performed by certified butadiene convertor operator at [facility] [id number] 07:19:00* Test Item Value Reference Range Interpretation Comments CREATININE (test code = CREAT) 0.90 mg/dL 0.7-1.3 N [id number] 05:45:00* Test Item Value Reference Range Interpretation Comments GLUBED (test code = GLUBED) 165 mg/dL 74-106 H Performed by certified butadiene convertor operator at [facility] [id number] 17:00:00* Test Item Value Reference Range Interpretation Comments GLUBED (test code = GLUBED) 193 mg/dL 74-106 H Performed by certified butadiene convertor [facility] [id number] 12:17:00* Test Item Value Reference Range Interpretation Comments GLUBED (test code = GLUBED) 157 mg/dL 74-106 H Performed by certified butadiene convertor operator [facility] [id number] 08:15:00* Test Item Value Reference Range Interpretation Comments GLUBED (test code = GLUBED) 127 mg/dL 74-106 H Performed by certified butadiene convertor operator [facility] [id number] 20:19:00* Test Item Value Reference Range Interpretation Comments GLUBED (test code = GLUBED) 139 mg/dL 74-106 H Performed by certified butadiene convertor operator at [facility] [id number] 16:45:00* Test Item Value Reference Range Interpretation Comments GLUBED (test code = GLUBED) 101 mg/dL 74-106 N Performed by certified butadiene convertor operator at [facility] [id number] 13:08:00* Test Item Value Reference Range Interpretation Comments GLUBED (test code = GLUBED) 106 mg/dL 74-106 N Performed by certified butadiene convertor operator at [facility] [id number] 08:28:00* Test Item Value Reference Range Interpretation Comments GLUBED (test code = GLUBED) 106 mg/dL 74-106 N Performed by certified butadiene convertor operator at [facility] [id number] 06:02:00* Test Item Value Reference Range Interpretation Comments GLUBED (test code = GLUBED) 141 mg/dL 74-106 H Performed by certified butadiene convertor operator at [facility] [id number] 19:05:00* Test Item Value Reference Range Interpretation Comments GLUBED (test code = GLUBED) 120 mg/dL 74-106 H Performed by certified butadiene convertor operator at [facility] [id number] 17:43:00* Test Item Value Reference Range Interpretation Comments GLUBED (test code = GLUBED) 144 mg/dL 74-106 H Performed by certified butadiene convertor operator at [facility]2019-12-22 17:11:00* Test Item Value Reference Range Interpretation Comments GLUBED (test code = GLUBED) 142 mg/dL 74-106 H Performed by certified butadiene convertor operator at [facility]2019-12-22 12:44:00* Test Item Value Reference Range Interpretation Comments GLUBED (test code = GLUBED) 142 mg/dL 74-106 H Performed by certified butadiene convertor operator at [facility] [id number] 18:55:00* Test Item Value Reference Range Interpretation Comments GLUBED (test code = GLUBED) 177 mg/dL 74-106 H Performed by certified butadiene convertor operator at [facility] [id number] 18:55:00* Test Item Value Reference Range Interpretation Comments GLUBED (test code = GLUBED) 158 mg/dL 74-106 H Performed by certified butadiene convertor operator at [facility] [id number] 08:45:00* Test Item Value Reference Range Interpretation Comments GLUBED (test code = GLUBED) 126 mg/dL 74-106 H Performed by certified butadiene convertor operator at [facility] [id number] 21:28:00* Test Item Value Reference Range Interpretation Comments GLUBED (test code = GLUBED) 161 mg/dL 74-106 H Performed by certified butadiene convertor operator [facility] [id number] 20:33:00* Test Item Value Reference Range Interpretation Comments GLUBED (test code = GLUBED) 164 mg/dL 74-106 H Performed by certified butadiene convertor operator at [facility] BASIC METABOLIC [id number] 12:36:00* Test Item Value Reference Range Interpretation Comments SODIUM (test code = NA) 138 mmol/L 136-145 N POTASSIUM (test code = K) 3.8 mmol/L 3.5-5.1 N CHLORIDE (test code = CL) 103.0 mmol/L 98-107 N CARBON DIOXIDE (test code = CO2) 27.0 mmol/L 21-32 N ANION GAP (test code = GAP) 11.8 10-20 N GLUCOSE (test code = GLU) 200 mg/dL 74-106 H BLOOD UREA NITROGEN (test code = BUN) 17 mg/dL 7-18 N GLOMERULAR FILTRATION RATE (test code = GFR) > 60 mL/min >=60 Estimated GFR by using Modified MDRD formula.Chronic kidney disease is defined as either kidney damageor GFR <60 mL/min/1.73 m2 for >3 months. CREATININE (test code = CREAT) 0.90 mg/dL 0.7-1.3 N BUN/CREATININE RATIO (test code = BUN/CREA) 18.0 10-20 N CALCIUM (test code = CA) 8.8 mg/dL 8.5-10.1 N BASIC METABOLIC [id number] 12:24:00* Test Item Value Reference Range Interpretation Comments SODIUM (test code = NA) 138 mmol/L 136-145 N POTASSIUM (test code = K) 3.8 mmol/L 3.5-5.1 N CHLORIDE (test code = CL) 103.0 mmol/L 98-107 N CARBON DIOXIDE (test code = CO2) mmol/L 21-32 ANION GAP (test code = GAP) 10-20 GLUCOSE (test code = GLU) mg/dL 74-106 BLOOD UREA NITROGEN (test code = BUN) mg/dL 7-18 GLOMERULAR FILTRATION RATE (test code = GFR) mL/min >=60 CREATININE (test code = CREAT) mg/dL 0.7-1.3 BUN/CREATININE RATIO (test code = BUN/CREA) 10-20 CALCIUM (test code = CA) mg/dL 8.5-10.1 [id number] 12:10:00* Test Item Value Reference Range Interpretation Comments GLUBED (test code = GLUBED) 203 mg/dL 74-106 H Performed by certified butadiene convertor operator at [facility] COAGULATION TIME [id number] 09:52:00* Test Item Value Reference Range Interpretation Comments COAGULATION TIME ACTIVATED (test code = ACT) 153 seconds 62.8-88.0 H COAGULATION TIME [id number] 09:52:00* Test Item Value Reference Range Interpretation Comments COAGULATION TIME ACTIVATED (test code = ACT) 218 seconds 62.8-88.0 H [id number] 07:59:00* Test Item Value Reference Range Interpretation Comments GLUBED (test code = GLUBED) 145 mg/dL 74-106 H Performed by certified butadiene convertor operator at [facility] [id number] 21:21:00* Test Item Value Reference Range Interpretation Comments GLUBED (test code = GLUBED) 96 mg/dL 74-106 N Performed by certified butadiene convertor operator [facility] COAGULATION TIME [id number] 15:05:00* Test Item Value Reference Range Interpretation Comments COAGULATION TIME ACTIVATED (test code = ACT) 213 seconds 62.8-88.0 H [id number] 12:41:00* Test Item Value Reference Range Interpretation Comments GLUBED (test code = GLUBED) 113 mg/dL 74-106 H Performed by certified butadiene convertor operator [facility] [id number] 08:52:00* Test Item Value Reference Range Interpretation Comments GLUBED (test code = GLUBED) 125 mg/dL 74-106 H Performed by certified butadiene convertor operator [facility] BASIC METABOLIC [id number] 07:04:00* Test Item Value Reference Range Interpretation Comments SODIUM (test code = NA) 144 mmol/L 136-145 N POTASSIUM (test code = K) 4.5 mmol/L 3.5-5.1 N CHLORIDE (test code = CL) 109.0 mmol/L 98-107 H CARBON DIOXIDE (test code = CO2) 31.0 mmol/L 21-32 N ANION GAP (test code = GAP) 8.5 10-20 L GLUCOSE (test code = GLU) 139 mg/dL 74-106 H BLOOD UREA NITROGEN (test code = BUN) 20 mg/dL 7-18 H GLOMERULAR FILTRATION RATE (test code = GFR) > 60 mL/min >=60 Estimated GFR by using Modified MDRD formula.Chronic kidney disease is defined as either kidney damageor GFR <60 mL/min/1.73 m2 for >3 months. CREATININE (test code = CREAT) 1.10 mg/dL 0.7-1.3 N BUN/CREATININE RATIO (test code = BUN/CREA) 18.7 10-20 N CALCIUM (test code = CA) 8.7 mg/dL 8.5-10.1 N BASIC METABOLIC [id number] 07:00:00* Test Item Value Reference Range Interpretation Comments SODIUM (test code = NA) 144 mmol/L 136-145 N POTASSIUM (test code = K) 4.5 mmol/L 3.5-5.1 N CHLORIDE (test code = CL) 109.0 mmol/L 98-107 H CARBON DIOXIDE (test code = CO2) mmol/L 21-32 ANION GAP (test code = GAP) 10-20 GLUCOSE (test code = GLU) mg/dL 74-106 BLOOD UREA NITROGEN (test code = BUN) mg/dL 7-18 GLOMERULAR FILTRATION RATE (test code = GFR) mL/min >=60 CREATININE (test code = CREAT) mg/dL 0.7-1.3 BUN/CREATININE RATIO (test code = BUN/CREA) 10-20 CALCIUM (test code = CA) 8.7 mg/dL 8.5-10.1 N PROTHROMBIN [id number] 05:35:00* Test Item Value Reference Range Interpretation Comments PROTHROMBIN TIME PATIENT (test code = PTP) 12.9 seconds 9.0-14.0 N INTERNATIONAL NORMAL RATIO (test code = INR) 1.1 0.8-1.2 N The therapeutic range for oral anticoagulant therapy [...] (2.5-3.5) IS PATIENT ON ANTICOAGULANTS? NTHROMBOPLASTIN TIME [id number] 05:35:00* Test Item Value Reference Range Interpretation Comments THROMBOPLASTIN TIME PARTIAL (test code = PTT) 36.2 seconds 25.0-36. 5 N IS PATIENT ON ANTICOAGULANTS? NCBC W/AUTO [id number] 05:35:00* Test Item Value Reference Range Interpretation Comments WHITE BLOOD CELL (test code = WBC) 6.6 K/mm3 4.5-12.5 N RED BLOOD CELL (test code = RBC) 3.74 mill/mm3 4.0-5.8 L HEMOGLOBIN (test code = HGB) 10.9 gram/dL 13.0-17.5 L HEMATOCRIT (test code = HCT) 34.0 % 42.0-52.0 L MEAN CELL VOLUME (test code = MCV) 90.9 fL 80-98 N MEAN CELL HGB (test code = MCH) 29.1 picogram 27.0-33.0 N MEAN CELL HGB CONCETRATION (test code = MCHC) 32.1 gram/dL 33.0-36. 0 L RED CELL DISTRIBUTION WIDTH (test code = RDW) 15.6 % 11.6-16. 2 N RED CELL DISTRIBUTION WIDTH SD (test code = RDW-SD) 52.1 fL 37 .0-51.0 H PLATELET COUNT (test code = PLT) 227 K/mm3 150-450 N MEAN PLATELET VOLUME (test code = MPV) 10.8 fL 6.7-11.0 N NEUTROPHIL % (test code = NT%) 56.7 % 39.0-69.0 N IMMATURE GRANULOCYTE % (test code = IG%) 0.3 % 0.0-5.0 N LYMPHOCYTE % (test code = LY%) 30.2 % 25.0-55.0 N MONOCYTE % (test code = MO%) 8.7 % 0.0-10.0 N EOSINOPHIL % (test code = EO%) 3.6 % 0.0-5.0 N BASOPHIL % (test code = BA%) 0.5 % 0.0-1.0 N NUCLEATED RBC % (test code = NRBC%) 0.0 % 0-0 N NEUTROPHIL # (test code = NT#) 3.76 K/mm3 1.8-7.7 N IMMATURE GRANULOCYTE # (test code = IG#) 0.02 x10 3/uL 0-0.03 N LYMPHOCYTE # (test code = LY#) 2.00 K/mm3 1.0-5.0 N MONOCYTE # (test code = MO#) 0.58 K/mm3 0-0.8 N EOSINOPHIL # (test code = EO#) 0.24 K/mm3 0.0-0.5 N BASOPHIL # (test code = BA#) 0.03 K/mm3 0.0-0.2 N NUCLEATED RBC # (test code = NRBC#) 0.00 K/mm3 0.0-0.1 N [id number] 00:18:00* Test Item Value Reference Range Interpretation Comments GLUBED (test code = GLUBED) 194 mg/dL 74-106 H Performed by certified butadiene convertor operator at [facility] [id number] 16:26:00* Test Item Value Reference Range Interpretation Comments GLUBED (test code = GLUBED) 158 mg/dL 74-106 H Performed by certified butadiene convertor operator at [facility] [id number] 11:49:00* Test Item Value Reference Range Interpretation Comments GLUBED (test code = GLUBED) 159 mg/dL 74-106 H Performed by certified butadiene convertor operator at [facility] [id number] 08:12:00* Test Item Value Reference Range Interpretation Comments GLUBED (test code = GLUBED) 146 mg/dL 74-106 H Performed by certified butadiene convertor operator at [facility] [id number] 20:41:00* Test Item Value Reference Range Interpretation Comments GLUBED (test code = GLUBED) 193 mg/dL 74-106 H Performed by certified butadiene convertor operator at [facility] [id number] 19:46:00* Test Item Value Reference Range Interpretation Comments GLUBED (test code = GLUBED) 127 mg/dL 74-106 H Performed by certified butadiene convertor operator at [facility] [id number] 12:20:00* Test Item Value Reference Range Interpretation Comments GLUBED (test code = GLUBED) 181 mg/dL 74-106 H Performed by certified butadiene convertor operator at [facility] [id number] 12:13:00* Test Item Value Reference Range Interpretation Comments GLUBED (test code = GLUBED) 138 mg/dL 74-106 H Performed by certified butadiene convertor operator at [facility] [id number] 20:20:00* Test Item Value Reference Range Interpretation Comments GLUBED (test code = GLUBED) 150 mg/dL 74-106 H Performed by certified butadiene convertor operator at [facility] [id number] 16:00:00* Test Item Value Reference Range Interpretation Comments GLUBED (test code = GLUBED) 197 mg/dL 74-106 H Performed by certified butadiene convertor operator at [facility] [id number] 15:49:00* Test Item Value Reference Range Interpretation Comments GLUBED (test code = GLUBED) 87 mg/dL 74-106 N Performed by certified butadiene convertor operator at [facility] [id number] 10:50:00* Test Item Value Reference Range Interpretation Comments GLUBED (test code = GLUBED) 151 mg/dL 74-106 H Performed by certified butadiene convertor [facility] BASIC METABOLIC [id number] 07:19:00* Test Item Value Reference Range Interpretation Comments SODIUM (test code = NA) 143 mmol/L 136-145 N POTASSIUM (test code = K) 4.4 mmol/L 3.5-5.1 N CHLORIDE (test code = CL) 110.0 mmol/L 98-107 H CARBON DIOXIDE (test code = CO2) 25.0 mmol/L 21-32 N ANION GAP (test code = GAP) 12.4 10-20 N GLUCOSE (test code = GLU) 132 mg/dL 74-106 H BLOOD UREA NITROGEN (test code = BUN) 19 mg/dL 7-18 H GLOMERULAR FILTRATION RATE (test code = GFR) > 60 mL/min >=60 Estimated GFR by using Modified MDRD formula.Chronic kidney disease is defined as either kidney damageor GFR <60 mL/min/1.73 m2 for >3 months. CREATININE (test code = CREAT) 0.90 mg/dL 0.7-1.3 N BUN/CREATININE RATIO (test code = BUN/CREA) 21.1 10-20 H CALCIUM (test code = CA) 9.0 mg/dL 8.5-10.1 N BASIC METABOLIC [id number] 07:06:00* Test Item Value Reference Range Interpretation Comments SODIUM (test code = NA) 143 mmol/L 136-145 N POTASSIUM (test code = K) 4.4 mmol/L 3.5-5.1 N CHLORIDE (test code = CL) 110.0 mmol/L 98-107 H CARBON DIOXIDE (test code = CO2) mmol/L 21-32 ANION GAP (test code = GAP) 10-20 GLUCOSE (test code = GLU) mg/dL 74-106 BLOOD UREA NITROGEN (test code = BUN) mg/dL 7-18 GLOMERULAR FILTRATION RATE (test code = GFR) mL/min >=60 CREATININE (test code = CREAT) mg/dL 0.7-1.3 BUN/CREATININE RATIO (test code = BUN/CREA) 10-20 CALCIUM (test code = CA) mg/dL 8.5-10.1 CBC W/AUTO [id number] 06:42:00* Test Item Value Reference Range Interpretation Comments WHITE BLOOD CELL (test code = WBC) 8.3 K/mm3 4.5-12.5 N RED BLOOD CELL (test code = RBC) 3.89 mill/mm3 4.0-5.8 L HEMOGLOBIN (test code = HGB) 11.3 gram/dL 13.0-17.5 L HEMATOCRIT (test code = HCT) 37.3 % 42.0-52.0 L MEAN CELL VOLUME (test code = MCV) 95.9 fL 80-98 N MEAN CELL HGB (test code = MCH) 29.0 picogram 27.0-33.0 N MEAN CELL HGB CONCETRATION (test code = MCHC) 30.3 gram/dL 33.0-36. 0 L RED CELL DISTRIBUTION WIDTH (test code = RDW) 16.0 % 11.6-16. 2 N RED CELL DISTRIBUTION WIDTH SD (test code = RDW-SD) 56.7 fL 37 .0-51.0 H PLATELET COUNT (test code = PLT) 222 K/mm3 150-450 N MEAN PLATELET VOLUME (test code = MPV) 11.1 fL 6.7-11.0 H NEUTROPHIL % (test code = NT%) 60.1 % 39.0-69.0 N IMMATURE GRANULOCYTE % (test code = IG%) 0.4 % 0.0-5.0 N LYMPHOCYTE % (test code = LY%) 26.5 % 25.0-55.0 N MONOCYTE % (test code = MO%) 9.0 % 0.0-10.0 N EOSINOPHIL % (test code = EO%) 3.5 % 0.0-5.0 N BASOPHIL % (test code = BA%) 0.5 % 0.0-1.0 N NUCLEATED RBC % (test code = NRBC%) 0.0 % 0-0 N NEUTROPHIL # (test code = NT#) 4.97 K/mm3 1.8-7.7 N IMMATURE GRANULOCYTE # (test code = IG#) 0.03 x10 3/uL 0-0.03 N LYMPHOCYTE # (test code = LY#) 2.19 K/mm3 1.0-5.0 N MONOCYTE # (test code = MO#) 0.74 K/mm3 0-0.8 N EOSINOPHIL # (test code = EO#) 0.29 K/mm3 0.0-0.5 N BASOPHIL # (test code = BA#) 0.04 K/mm3 0.0-0.2 N NUCLEATED RBC # (test code = NRBC#) 0.00 K/mm3 0.0-0.1 N MANUAL DIFF REQUIRED (test code = MDIFF) NO [id number] 05:41:00* Test Item Value Reference Range Interpretation Comments GLUBED (test code = GLUBED) 153 mg/dL 74-106 H Performed by certified butadiene convertor operator at [facility] [id number] 16:36:00* Test Item Value Reference Range Interpretation Comments GLUBED (test code = GLUBED) 168 mg/dL 74-106 H Performed by certified butadiene convertor operator [facility] [id number] 12:39:00* Test Item Value Reference Range Interpretation Comments GLUBED (test code = GLUBED) 168 mg/dL 74-106 H Performed by certified butadiene convertor operator [facility] [id number] 08:18:00* Test Item Value Reference Range Interpretation Comments GLUBED (test code = GLUBED) 117 mg/dL 74-106 H Performed by certified butadiene convertor operator [facility] [id number] 05:39:00* Test Item Value Reference Range Interpretation Comments GLUBED (test code = GLUBED) 197 mg/dL 74-106 H Performed by certified butadiene convertor operator at [facility] [id number] 17:22:00* Test Item Value Reference Range Interpretation Comments GLUBED (test code = GLUBED) 126 mg/dL 74-106 H Performed by certified butadiene convertor operator at [facility] [id number] 12:08:00* Test Item Value Reference Range Interpretation Comments GLUBED (test code = GLUBED) 198 mg/dL 74-106 H Performed by certified butadiene convertor operator at [facility]2019-12-14 08:25:00* Test Item Value Reference Range Interpretation Comments GLUBED (test code = GLUBED) 146 mg/dL 74-106 H Performed by certified butadiene convertor operator at [facility]2019-12-13 20:42:00* Test Item Value Reference Range Interpretation Comments GLUBED (test code = GLUBED) 123 mg/dL 74-106 H Performed by certified butadiene convertor operator at [facility] [id number] 20:33:00* Test Item Value Reference Range Interpretation Comments GLUBED (test code = GLUBED) 166 mg/dL 74-106 H Performed by certified butadiene convertor operator at [facility] [id number] 15:35:00* Test Item Value Reference Range Interpretation Comments GLUBED (test code = GLUBED) 176 mg/dL 74-106 H Performed by certified butadiene convertor operator at [facility] - XR FOOT 2 VIEWS [id number] 10:28:00 FAX: Tanvi Portillo [facility] [phone] [place]: [address]: [facility] FAX: Maikol Capps [facility] [phone] Name: MARLEN NOLAND [facility] : 1945 Age/S: 74/M [address] Unit #: [id number] Loc: V.4030 [place] [address] Phys: Tanvi Murillo DPM Acct: [id number] Dis Date: Status: ADM IN PHONE #: [phone] Exam Date: 04/14/2019915 FAX #: [phone] Reason: FOOT WOUND EXAMS: CPT CODE: [id number] XR FOOT [address] [place] [id number] CLINICAL HISTORY: FOOT WOUND TECHNIQUE: PA and lateral views of the left foot COMPARISON: Left foot radiographs December 08, [address] April 13, 2019 FINDINGS: Redemonstration of minimally displaced oblique fracture of the distal fibula shaft. No other fractures are seen. The bones are appropriately aligned. Mild interphalangeal joint space narrowing is seen. Vascular c alcifications are seen throughout the left foot and visualized left ankle. IMPRESSION: Minimally displaced fract ure of the distal left fibular shaft. Remaining bones are within normal limits. Location: [facility] at 1028 Reported and signed by : Thor Davis MD CC: Tanvi Murillo DPM; Maikol Hendrickson Technologist: CINDY OSHEA JR Trnscrd Date/Time/By: 04/14/2019 (1028) : By: [email or web address] Orig Print D /T: S: 04/14/2019 (4413) PAGE 1 S igned Report [id number] 08:33:00* Test Item Value Reference Range Interpretation Comments GLUBED (test code = GLUBED) 142 mg/dL 74-106 H Performed by certified butadiene convertor operator at [facility] BASIC METABOLIC [id number] 05:27:00* Test Item Value Reference Range Interpretation Comments SODIUM (test code = NA) 138 mmol/L 136-145 N POTASSIUM (test code = K) 3.9 mmol/L 3.5-5.1 N CHLORIDE (test code = CL) 104.0 mmol/L 98-107 N CARBON DIOXIDE (test code = CO2) 30.0 mmol/L 21-32 N ANION GAP (test code = GAP) 7.9 10-20 L GLUCOSE (test code = GLU) 133 mg/dL 74-106 H BLOOD UREA NITROGEN (test code = BUN) 27 mg/dL 7-18 H GLOMERULAR FILTRATION RATE (test code = GFR) > 60 mL/min >=60 Estimated GFR by using Modified MDRD formula.Chronic kidney disease is defined as either kidney damageor GFR <60 mL/min/1.73 m2 for >3 months. CREATININE (test code = CREAT) 0.90 mg/dL 0.7-1.3 N BUN/CREATININE RATIO (test code = BUN/CREA) 29.8 10-20 H CALCIUM (test code = CA) 8.7 mg/dL 8.5-10.1 N BASIC METABOLIC [id number] 05:23:00* Test Item Value Reference Range Interpretation Comments SODIUM (test code = NA) 138 mmol/L 136-145 N POTASSIUM (test code = K) 3.9 mmol/L 3.5-5.1 N CHLORIDE (test code = CL) 104.0 mmol/L 98-107 N CARBON DIOXIDE (test code = CO2) mmol/L 21-32 ANION GAP (test code = GAP) 10-20 GLUCOSE (test code = GLU) mg/dL 74-106 BLOOD UREA NITROGEN (test code = BUN) mg/dL 7-18 GLOMERULAR FILTRATION RATE (test code = GFR) mL/min >=60 CREATININE (test code = CREAT) mg/dL 0.7-1.3 BUN/CREATININE RATIO (test code = BUN/CREA) 10-20 CALCIUM (test code = CA) 8.7 mg/dL 8.5-10.1 N CBC W/AUTO [id number] 05:03:00* Test Item Value Reference Range Interpretation Comments WHITE BLOOD CELL (test code = WBC) 6.6 K/mm3 4.5-12.5 N RED BLOOD CELL (test code = RBC) 3.65 mill/mm3 4.0-5.8 L HEMOGLOBIN (test code = HGB) 10.7 gram/dL 13.0-17.5 L HEMATOCRIT (test code = HCT) 32.2 % 42.0-52.0 L MEAN CELL VOLUME (test code = MCV) 88.2 fL 80-98 N MEAN CELL HGB (test code = MCH) 29.3 picogram 27.0-33.0 N MEAN CELL HGB CONCETRATION (test code = MCHC) 33.2 gram/dL 33.0-36. 0 N RED CELL DISTRIBUTION WIDTH (test code = RDW) 15.5 % 11.6-16. 2 N RED CELL DISTRIBUTION WIDTH SD (test code = RDW-SD) 49.5 fL 37 .0-51.0 N PLATELET COUNT (test code = PLT) 263 K/mm3 150-450 N MEAN PLATELET VOLUME (test code = MPV) 10.6 fL 6.7-11.0 N NEUTROPHIL % (test code = NT%) 51.4 % 39.0-69.0 N IMMATURE GRANULOCYTE % (test code = IG%) 0.3 % 0.0-5.0 N LYMPHOCYTE % (test code = LY%) 33.5 % 25.0-55.0 N MONOCYTE % (test code = MO%) 9.2 % 0.0-10.0 N EOSINOPHIL % (test code = EO%) 5.3 % 0.0-5.0 H BASOPHIL % (test code = BA%) 0.3 % 0.0-1.0 N NUCLEATED RBC % (test code = NRBC%) 0.0 % 0-0 N NEUTROPHIL # (test code = NT#) 3.40 K/mm3 1.8-7.7 N IMMATURE GRANULOCYTE # (test code = IG#) 0.02 x10 3/uL 0-0.03 N LYMPHOCYTE # (test code = LY#) 2.22 K/mm3 1.0-5.0 N MONOCYTE # (test code = MO#) 0.61 K/mm3 0-0.8 N EOSINOPHIL # (test code = EO#) 0.35 K/mm3 0.0-0.5 N BASOPHIL # (test code = BA#) 0.02 K/mm3 0.0-0.2 N NUCLEATED RBC # (test code = NRBC#) 0.00 K/mm3 0.0-0.1 N MANUAL DIFF REQUIRED (test code = MDIFF) NO [id number] 02:37:00* Test Item Value Reference Range Interpretation Comments GLUBED (test code = GLUBED) 137 mg/dL 74-106 H Performed by certified butadiene convertor operator at [facility] [id number] 20:56:00* Test Item Value Reference Range Interpretation Comments GLUBED (test code = GLUBED) 184 mg/dL 74-106 H Performed by certified butadiene convertor operator at [facility] [id number] 20:56:00* Test Item Value Reference Range Interpretation Comments GLUBED (test code = GLUBED) 172 mg/dL 74-106 H Performed by certified butadiene convertor operator at [facility] [id number] 16:30:00* Test Item Value Reference Range Interpretation Comments GLUBED (test code = GLUBED) 139 mg/dL 74-106 H Performed by certified butadiene convertor operator at [facility] - CT LOWER EXTRM W/O C [id number] 14:53:00 Name: MARLEN NOLAND [facility] : 1945 Age/S: 74 / M [address] Unit #: [id number] Loc: [place] [address] Phys: Maikol Hendrickson MD Acct: [id number] Dis Date: Status: ADM IN PHONE #: [phone] Exam Date: 04/13/2019 1439 FAX #: [phone] Reason: PAIN EXAMS: CPT CODE: [id number] CT LOWER EXTRM W/[place] [address] REASON FOR EXAM: PAIN EXAM ORDER DATE: 04/13/2019 11:31 AM Ordering: Maikol Schrader MD Attending:Maikol Schrader MD Location:[facility] PROCEDURE: - CT LOWER EXTRM W/O C LT FINDINGS: CT images of the left foot were obtained without IV contrast at 2.5mm. Reconstructed coronal and sagittal images were also provided. Dose modulation, iterative reconstruction, and/or weight based adjustment of the MA/KV was utilized to reduce the radiation dose to as low as reasonably achievable. Minimally displaced oblique fracture of the distal left fibula at the level of the ankle mortise. The distal fragment is slightly displaced laterally less than 0.5 cm. The ankle mortise is intact. Cystic degenerative changes of the first proximal phalanx and the head of the first metatarsal seen. The distal left tibia is intact IMPRE SSION: Minimally displaced oblique fracture of the distal left fibula at the level of the ankle mortise at 1453 Reported and signed by : Sundar Polk M.D. CC: Maikol Hendrickson Technologist:Gracy Allen RT(R),CT CTDI: DLP: Trn scb Date/Time: 04/13/2019 (4968) AmandaL Orig Print D/T : S: 04/13/2019 (6356) PAGE 1 Signed Report [id number] 08:01:00* Test Item Value Reference Range Interpretation Comments GLUBED (test code = GLUBED) 145 mg/dL 74-106 H Performed by certified butadiene convertor operator at [facility]2019-12-11 20:08:00* Test Item Value Reference Range Interpretation Comments GLUBED (test code = GLUBED) 231 mg/dL 74-106 H Performed by certified butadiene convertor operator at [facility]2019-12-11 16:24:00* Test Item Value Reference Range Interpretation Comments GLUBED (test code = GLUBED) 199 mg/dL 74-106 H Performed by certified butadiene convertor operator at [facility]2019-12-11 12:32:00* Test Item Value Reference Range Interpretation Comments GLUBED (test code = GLUBED) 201 mg/dL 74-106 H Performed by certified butadiene convertor operator at [facility]2019-12-11 09:56:00* Test Item Value Reference Range Interpretation Comments GLUBED (test code = GLUBED) 240 mg/dL 74-106 H Performed by certified butadiene convertor operator at [facility]2019-12-10 20:51:00* Test Item Value Reference Range Interpretation Comments GLUBED (test code = GLUBED) 309 mg/dL 74-106 H Performed by certified butadiene convertor operator at [facility] [id number] 19:12:00* Test Item Value Reference Range Interpretation Comments GLUBED (test code = GLUBED) 124 mg/dL 74-106 H Performed by certified butadiene convertor operator at [facility]2019-12-10 13:06:00* Test Item Value Reference Range Interpretation Comments GLUBED (test code = GLUBED) 186 mg/dL 74-106 H Performed by certified butadiene convertor operator at [facility]2019-12-10 13:06:00* Test Item Value Reference Range Interpretation Comments GLUBED (test code = GLUBED) 141 mg/dL 74-106 H Performed by certified butadiene convertor operator at [facility] [id number] 20:43:00* Test Item Value Reference Range Interpretation Comments GLUBED (test code = GLUBED) 195 mg/dL 74-106 H [facility] certified [facility]adiene convertor [facility]~ [id number] 16:41:00* Test Item Value Reference Range Interpretation Comments GLUBED (test code = GLUBED) 246 mg/dL 74-106 H Performed by certified butadiene convertor operator at [facility] [id number] 11:57:00* Test Item Value Reference Range Interpretation Comments GLUBED (test code = GLUBED) 201 mg/dL 74-106 H Performed by certified butadiene convertor operator at [facility] [id number] 08:26:00* Test Item Value Reference Range Interpretation Comments GLUBED (test code = GLUBED) 127 mg/dL 74-106 H Performed by certified butadiene convertor [facility]~ [id number] 06:08:00* Test Item Value Reference Range Interpretation Comments GLUBED (test code = GLUBED) 160 mg/dL 74-106 H Performed by certified butadiene convertor operator at [facility] [id number] 00:36:00* Test Item Value Reference Range Interpretation Comments GLUBED (test code = GLUBED) 111 mg/dL 74-106 H Performed by certified butadiene convertor operator at [facility] [id number] 20:00:00* Test Item Value Reference Range Interpretation Comments GLUBED (test code = GLUBED) 191 mg/dL 74-106 H Performed by certified butadiene convertor operator at [facility] [id number] 12:03:00* Test Item Value Reference Range Interpretation Comments GLUBED (test code = GLUBED) 121 mg/dL 74-106 H Performed by certified butadiene convertor [facility]~ [id number] 09:30:00* Test Item Value Reference Range Interpretation Comments GLUBED (test code = GLUBED) 131 mg/dL 74-106 H Performed by certified butadiene convertor operator at [facility] [id number] 08:30:00* Test Item Value Reference Range Interpretation Comments GLUBED (test code = GLUBED) 118 mg/dL 74-106 H Performed by certified butadiene convertor [facility]~ BASIC METABOLIC [id number] 06:46:00* Test Item Value Reference Range Interpretation Comments SODIUM (test code = NA) 140 mmol/L 136-145 N POTASSIUM (test code = K) 4.4 mmol/L 3.5-5.1 N CHLORIDE (test code = CL) 100.0 mmol/L 98-107 N CARBON DIOXIDE (test code = CO2) 34.0 mmol/L 21-32 H ANION GAP (test code = GAP) 10.4 10-20 N GLUCOSE (test code = GLU) 131 mg/dL 74-106 H BLOOD UREA NITROGEN (test code = BUN) 37 mg/dL 7-18 H GLOMERULAR FILTRATION RATE (test code = GFR) > 60 mL/min >=60 Estimated GFR by using Modified MDRD formula.Chronic kidney disease is defined as either kidney damageor GFR <60 mL/min/1.73 m2 for >3 months. CREATININE (test code = CREAT) 0.90 mg/dL 0.7-1.3 N BUN/CREATININE RATIO (test code = BUN/CREA) 41.5 10-20 H CALCIUM (test code = CA) 8.7 mg/dL 8.5-10.1 N BASIC METABOLIC [id number] 06:34:00* Test Item Value Reference Range Interpretation Comments SODIUM (test code = NA) 140 mmol/L 136-145 N POTASSIUM (test code = K) 4.4 mmol/L 3.5-5.1 N CHLORIDE (test code = CL) 100.0 mmol/L 98-107 N CARBON DIOXIDE (test code = CO2) mmol/L 21-32 ANION GAP (test code = GAP) 10-20 GLUCOSE (test code = GLU) mg/dL 74-106 BLOOD UREA NITROGEN (test code = BUN) mg/dL 7-18 GLOMERULAR FILTRATION RATE (test code = GFR) mL/min >=60 CREATININE (test code = CREAT) mg/dL 0.7-1.3 BUN/CREATININE RATIO (test code = BUN/CREA) 10-20 CALCIUM (test code = CA) mg/dL 8.5-10.1 CBC W/AUTO [id number] 06:16:00* Test Item Value Reference Range Interpretation Comments WHITE BLOOD CELL (test code = WBC) 8.4 K/mm3 4.5-12.5 N RED BLOOD CELL (test code = RBC) 4.08 mill/mm3 4.0-5.8 N HEMOGLOBIN (test code = HGB) 11.9 gram/dL 13.0-17.5 L HEMATOCRIT (test code = HCT) 36.2 % 42.0-52.0 L MEAN CELL VOLUME (test code = MCV) 88.7 fL 80-98 N MEAN CELL HGB (test code = MCH) 29.2 picogram 27.0-33.0 N MEAN CELL HGB CONCETRATION (test code = MCHC) 32.9 gram/dL 33.0-36. 0 L RED CELL DISTRIBUTION WIDTH (test code = RDW) 15.2 % 11.6-16. 2 N RED CELL DISTRIBUTION WIDTH SD (test code = RDW-SD) 49.1 fL 37 .0-51.0 N PLATELET COUNT (test code = PLT) 292 K/mm3 150-450 N MEAN PLATELET VOLUME (test code = MPV) 10.2 fL 6.7-11.0 N NEUTROPHIL % (test code = NT%) 50.5 % 39.0-69.0 N IMMATURE GRANULOCYTE % (test code = IG%) 1.2 % 0.0-5.0 N LYMPHOCYTE % (test code = LY%) 37.8 % 25.0-55.0 N MONOCYTE % (test code = MO%) 7.3 % 0.0-10.0 N EOSINOPHIL % (test code = EO%) 3.1 % 0.0-5.0 N BASOPHIL % (test code = BA%) 0.1 % 0.0-1.0 N NUCLEATED RBC % (test code = NRBC%) 0.0 % 0-0 N NEUTROPHIL # (test code = NT#) 4.23 K/mm3 1.8-7.7 N IMMATURE GRANULOCYTE # (test code = IG#) 0.10 x10 3/uL 0-0.03 H LYMPHOCYTE # (test code = LY#) 3.17 K/mm3 1.0-5.0 N MONOCYTE # (test code = MO#) 0.61 K/mm3 0-0.8 N EOSINOPHIL # (test code = EO#) 0.26 K/mm3 0.0-0.5 N BASOPHIL # (test code = BA#) 0.01 K/mm3 0.0-0.2 N NUCLEATED RBC # (test code = NRBC#) 0.00 K/mm3 0.0-0.1 N MANUAL DIFF REQUIRED (test code = MDIFF) NO [id number] 00:15:00* Test Item Value Reference Range Interpretation Comments GLUBED (test code = GLUBED) 239 mg/dL 74-106 H [facility] certified [facility]adiene [facility] [id number] 16:50:00* Test Item Value Reference Range Interpretation Comments GLUBED (test code = GLUBED) 158 mg/dL 74-106 H Performed by certified butadiene convertor operator at [facility] [id number] 12:05:00* Test Item Value Reference Range Interpretation Comments GLUBED (test code = GLUBED) 156 mg/dL 74-106 H Performed by certified butadiene convertor operator at [facility] [id number] 07:49:00* Test Item Value Reference Range Interpretation Comments GLUBED (test code = GLUBED) 150 mg/dL 74-106 H Performed by certified butadiene convertor operator at [facility] [id number] 07:32:00* Test Item Value Reference Range Interpretation Comments GLUBED (test code = GLUBED) 291 mg/dL 74-106 H Performed by certified butadiene convertor operator at [facility] CBC W/AUTO [id number] 03:31:00* Test Item Value Reference Range Interpretation Comments WHITE BLOOD CELL (test code = WBC) 9.9 K/mm3 4.5-12.5 N RED BLOOD CELL (test code = RBC) 3.80 mill/mm3 4.0-5.8 L HEMOGLOBIN (test code = HGB) 10.9 gram/dL 13.0-17.5 L HEMATOCRIT (test code = HCT) 33.5 % 42.0-52.0 L MEAN CELL VOLUME (test code = MCV) 88.2 fL 80-98 N MEAN CELL HGB (test code = MCH) 28.7 picogram 27.0-33.0 N MEAN CELL HGB CONCETRATION (test code = MCHC) 32.5 gram/dL 33.0-36. 0 L RED CELL DISTRIBUTION WIDTH (test code = RDW) 14.8 % 11.6-16. 2 N RED CELL DISTRIBUTION WIDTH SD (test code = RDW-SD) 47.4 fL 37 .0-51.0 N PLATELET COUNT (test code = PLT) 246 K/mm3 150-450 N MEAN PLATELET VOLUME (test code = MPV) 9.6 fL 6.7-11.0 N NEUTROPHIL % (test code = NT%) 64.8 % 39.0-69.0 N IMMATURE GRANULOCYTE % (test code = IG%) 0.9 % 0.0-5.0 N LYMPHOCYTE % (test code = LY%) 26.1 % 25.0-55.0 N MONOCYTE % (test code = MO%) 7.7 % 0.0-10.0 N EOSINOPHIL % (test code = EO%) 0.4 % 0.0-5.0 N BASOPHIL % (test code = BA%) 0.1 % 0.0-1.0 N NUCLEATED RBC % (test code = NRBC%) 0.0 % 0-0 N NEUTROPHIL # (test code = NT#) 6.42 K/mm3 1.8-7.7 N IMMATURE GRANULOCYTE # (test code = IG#) 0.09 x10 3/uL 0-0.03 H LYMPHOCYTE # (test code = LY#) 2.59 K/mm3 1.0-5.0 N MONOCYTE # (test code = MO#) 0.76 K/mm3 0-0.8 N EOSINOPHIL # (test code = EO#) 0.04 K/mm3 0.0-0.5 N BASOPHIL # (test code = BA#) 0.01 K/mm3 0.0-0.2 N NUCLEATED RBC # (test code = NRBC#) 0.00 K/mm3 0.0-0.1 N COMPREHENSIVE METABOLIC [id number] 03:31:00* Test Item Value Reference Range Interpretation Comments SODIUM (test code = NA) 138 mmol/L 136-145 N POTASSIUM (test code = K) 4.4 mmol/L 3.5-5.1 N CHLORIDE (test code = CL) 101.0 mmol/L 98-107 N CARBON DIOXIDE (test code = CO2) 34.0 mmol/L 21-32 H ANION GAP (test code = GAP) 7.4 10-20 L GLUCOSE (test code = GLU) 169 mg/dL 74-106 H BLOOD UREA NITROGEN (test code = BUN) 38 mg/dL 7-18 H GLOMERULAR FILTRATION RATE (test code = GFR) > 60 mL/min >=60 Estimated GFR by using Modified MDRD formula.Chronic kidney disease is defined as either kidney damageor GFR <60 mL/min/1.73 m2 for >3 months. CREATININE (test code = CREAT) 0.80 mg/dL 0.7-1.3 N BUN/CREATININE RATIO (test code = BUN/CREA) 46.9 10-20 H TOTAL PROTEIN (test code = PROT) 6.1 gram/dL 6.4-8.2 L ALBUMIN (test code = ALB) 2.6 g/dL 3.4-5.0 L GLOBULIN (test code = GLOB) 3.5 gram/dL 2.7-4.2 N ALBUMIN/GLOBULIN RATIO (test code = A/G) 0.7 0.75-1.50 L CALCIUM (test code = CA) 8.7 mg/dL 8.5-10.1 N BILIRUBIN TOTAL (test code = BILT) 0.20 mg/dL 0.0-1.0 N SGOT/AST (test code = AST) 13 IUnit/L 15-37 L SGPT/ALT (test code = ALT) 19 IUnit/L 12-78 N ALKALINE PHOSPHATASE TOTAL (test code = ALKP) 49 IUnit/L 45-117 N Note change in reference range due to change in reagent. [id number] 03:31:00* Test Item Value Reference Range Interpretation Comments PHOSPHORUS (test code = PHOS) 3.2 mg/dL 2.5-4.9 N [id number] 03:31:00* Test Item Value Reference Range Interpretation Comments MAGNESIUM (test code = MAG) 2.0 mg/dL 1.8-2.4 N CALCIUM [id number] 03:31:00* Test Item Value Reference Range Interpretation Comments CALCIUM IONIZED (test code = AILVIA) 1.27 mmol/L 1.12-1.32 N COMPREHENSIVE METABOLIC [id number] 03:24:00* Test Item Value Reference Range Interpretation Comments SODIUM (test code = NA) 138 mmol/L 136-145 N POTASSIUM (test code = K) 4.4 mmol/L 3.5-5.1 N CHLORIDE (test code = CL) 101.0 mmol/L 98-107 N CARBON DIOXIDE (test code = CO2) mmol/L 21-32 ANION GAP (test code = GAP) 10-20 GLUCOSE (test code = GLU) mg/dL 74-106 BLOOD UREA NITROGEN (test code = BUN) mg/dL 7-18 GLOMERULAR FILTRATION RATE (test code = GFR) mL/min >=60 CREATININE (test code = CREAT) mg/dL 0.7-1.3 BUN/CREATININE RATIO (test code = BUN/CREA) 10-20 TOTAL PROTEIN (test code = PROT) gram/dL 6.4-8.2 ALBUMIN (test code = ALB) g/dL 3.4-5.0 GLOBULIN (test code = GLOB) gram/dL 2.7-4.2 ALBUMIN/GLOBULIN RATIO (test code = A/G) 0.75-1.50 CALCIUM (test code = CA) mg/dL 8.5-10.1 BILIRUBIN TOTAL (test code = BILT) mg/dL 0.0-1.0 SGOT/AST (test code = AST) IUnit/L 15-37 SGPT/ALT (test code = ALT) IUnit/L 12-78 ALKALINE PHOSPHATASE TOTAL (test code = ALKP) IUnit/L 45-117 [id number] 03:24:00* Test Item Value Reference Range Interpretation Comments PHOSPHORUS (test code = PHOS) mg/dL 2.5-4.9 [id number] 03:24:00* Test Item Value Reference Range Interpretation Comments MAGNESIUM (test code = MAG) mg/dL 1.8-2.4 CALCIUM [id number] 03:24:00* Test Item Value Reference Range Interpretation Comments CALCIUM IONIZED (test code = ALIVIA) 1.27 mmol/L 1.12-1.32 N COMPREHENSIVE METABOLIC [id number] 03:21:00* Test Item Value Reference Range Interpretation Comments SODIUM (test code = NA) mmol/L 136-145 POTASSIUM (test code = K) mmol/L 3.5-5.1 CHLORIDE (test code = CL) mmol/L 98-107 CARBON DIOXIDE (test code = CO2) mmol/L 21-32 ANION GAP (test code = GAP) 10-20 GLUCOSE (test code = GLU) mg/dL 74-106 BLOOD UREA NITROGEN (test code = BUN) mg/dL 7-18 GLOMERULAR FILTRATION RATE (test code = GFR) mL/min >=60 CREATININE (test code = CREAT) mg/dL 0.7-1.3 BUN/CREATININE RATIO (test code = BUN/CREA) 10-20 TOTAL PROTEIN (test code = PROT) gram/dL 6.4-8.2 ALBUMIN (test code = ALB) g/dL 3.4-5.0 GLOBULIN (test code = GLOB) gram/dL 2.7-4.2 ALBUMIN/GLOBULIN RATIO (test code = A/G) 0.75-1.50 CALCIUM (test code = CA) mg/dL 8.5-10.1 BILIRUBIN TOTAL (test code = BILT) mg/dL 0.0-1.0 SGOT/AST (test code = AST) IUnit/L 15-37 SGPT/ALT (test code = ALT) IUnit/L 12-78 ALKALINE PHOSPHATASE TOTAL (test code = ALKP) IUnit/L 45-117 [id number] 03:21:00* Test Item Value Reference Range Interpretation Comments PHOSPHORUS (test code = PHOS) mg/dL 2.5-4.9 [id number] 03:21:00* Test Item Value Reference Range Interpretation Comments MAGNESIUM (test code = MAG) mg/dL 1.8-2.4 CALCIUM [id number] 03:21:00* Test Item Value Reference Range Interpretation Comments CALCIUM IONIZED (test code = ALIVIA) 1.27 mmol/L 1.12-1.32 N [id number] 20:31:00* Test Item Value Reference Range Interpretation Comments GLUBED (test code = GLUBED) 278 mg/dL 74-106 H Performed by certified butadiene convertor operator at [facility] [id number] 11:51:00* Test Item Value Reference Range Interpretation Comments GLUBED (test code = GLUBED) 274 mg/dL 74-106 H Performed by certified butadiene convertor operator at [facility] [id number] 07:33:00* Test Item Value Reference Range Interpretation Comments GLUBED (test code = GLUBED) 164 mg/dL 74-106 H Performed by certified butadiene convertor operator at [facility] BASIC METABOLIC [id number] 03:07:00* Test Item Value Reference Range Interpretation Comments SODIUM (test code = NA) 137 mmol/L 136-145 N POTASSIUM (test code = K) 4.1 mmol/L 3.5-5.1 N CHLORIDE (test code = CL) 98.0 mmol/L 98-107 N CARBON DIOXIDE (test code = CO2) 32.0 mmol/L 21-32 N ANION GAP (test code = GAP) 11.1 10-20 N GLUCOSE (test code = GLU) 153 mg/dL 74-106 H BLOOD UREA NITROGEN (test code = BUN) 38 mg/dL 7-18 H GLOMERULAR FILTRATION RATE (test code = GFR) > 60 mL/min >=60 Estimated GFR by using Modified MDRD formula.Chronic kidney disease is defined as either kidney damageor GFR <60 mL/min/1.73 m2 for >3 months. CREATININE (test code = CREAT) 0.90 mg/dL 0.7-1.3 N BUN/CREATININE RATIO (test code = BUN/CREA) 42.2 10-20 H CALCIUM (test code = CA) 9.6 mg/dL 8.5-10.1 N [id number] 03:07:00* Test Item Value Reference Range Interpretation Comments PHOSPHORUS (test code = PHOS) 3.2 mg/dL 2.5-4.9 N [id number] 03:07:00* Test Item Value Reference Range Interpretation Comments MAGNESIUM (test code = MAG) 2.3 mg/dL 1.8-2.4 N CALCIUM [id number] 03:07:00* Test Item Value Reference Range Interpretation Comments CALCIUM IONIZED (test code = ALIVIA) 1.30 mmol/L 1.12-1.32 N BASIC METABOLIC [id number] 03:04:00* Test Item Value Reference Range Interpretation Comments SODIUM (test code = NA) 137 mmol/L 136-145 N POTASSIUM (test code = K) 4.1 mmol/L 3.5-5.1 N CHLORIDE (test code = CL) 98.0 mmol/L 98-107 N CARBON DIOXIDE (test code = CO2) 32.0 mmol/L 21-32 N ANION GAP (test code = GAP) 11.1 10-20 N GLUCOSE (test code = GLU) 153 mg/dL 74-106 H BLOOD UREA NITROGEN (test code = BUN) 38 mg/dL 7-18 H GLOMERULAR FILTRATION RATE (test code = GFR) > 60 mL/min >=60 Estimated GFR by using Modified MDRD formula.Chronic kidney disease is defined as either kidney damageor GFR <60 mL/min/1.73 m2 for >3 months. CREATININE (test code = CREAT) 0.90 mg/dL 0.7-1.3 N BUN/CREATININE RATIO (test code = BUN/CREA) 42.2 10-20 H CALCIUM (test code = CA) 9.6 mg/dL 8.5-10.1 N [id number] 03:04:00* Test Item Value Reference Range Interpretation Comments PHOSPHORUS (test code = PHOS) 3.2 mg/dL 2.5-4.9 N [id number] 03:04:00* Test Item Value Reference Range Interpretation Comments MAGNESIUM (test code = MAG) 2.3 mg/dL 1.8-2.4 N CALCIUM [id number] 03:04:00* Test Item Value Reference Range Interpretation Comments CALCIUM IONIZED (test code = ALIVIA) mmol/L 1.12-1.32 BASIC METABOLIC [id number] 03:01:00* Test Item Value Reference Range Interpretation Comments SODIUM (test code = NA) 137 mmol/L 136-145 N POTASSIUM (test code = K) 4.1 mmol/L 3.5-5.1 N CHLORIDE (test code = CL) 98.0 mmol/L 98-107 N CARBON DIOXIDE (test code = CO2) mmol/L 21-32 ANION GAP (test code = GAP) 10-20 GLUCOSE (test code = GLU) mg/dL 74-106 BLOOD UREA NITROGEN (test code = BUN) mg/dL 7-18 GLOMERULAR FILTRATION RATE (test code = GFR) mL/min >=60 CREATININE (test code = CREAT) mg/dL 0.7-1.3 BUN/CREATININE RATIO (test code = BUN/CREA) 10-20 CALCIUM (test code = CA) mg/dL 8.5-10.1 [id number] 03:01:00* Test Item Value Reference Range Interpretation Comments PHOSPHORUS (test code = PHOS) mg/dL 2.5-4.9 [id number] 03:01:00* Test Item Value Reference Range Interpretation Comments MAGNESIUM (test code = MAG) mg/dL 1.8-2.4 CALCIUM [id number] 03:01:00* Test Item Value Reference Range Interpretation Comments CALCIUM IONIZED (test code = ALIVIA) mmol/L 1.12-1.32 CBC W/O [id number] 02:30:00* Test Item Value Reference Range Interpretation Comments WHITE BLOOD CELL (test code = WBC) 10.4 K/mm3 4.5-12.5 N RED BLOOD CELL (test code = RBC) 4.30 mill/mm3 4.0-5.8 N HEMOGLOBIN (test code = HGB) 12.2 gram/dL 13.0-17.5 L HEMATOCRIT (test code = HCT) 38.1 % 42.0-52.0 L MEAN CELL VOLUME (test code = MCV) 88.6 fL 80-98 N MEAN CELL HGB (test code = MCH) 28.4 picogram 27.0-33.0 N MEAN CELL HGB CONCETRATION (test code = MCHC) 32.0 gram/dL 33.0-36. 0 L RED CELL DISTRIBUTION WIDTH (test code = RDW) 14.7 % 11.6-16. 2 N PLATELET COUNT (test code = PLT) 295 K/mm3 150-450 N MEAN PLATELET VOLUME (test code = MPV) 9.9 fL 6.7-11.0 N [id number] 20:23:00* Test Item Value Reference Range Interpretation Comments GLUBED (test code = GLUBED) 257 mg/dL 74-106 H Performed by certified butadiene convertor operator at [facility] [id number] 16:34:00* Test Item Value Reference Range Interpretation Comments GLUBED (test code = GLUBED) 282 mg/dL 74-106 H Performed by certified butadiene convertor operator at [facility] [id number] 12:10:00* Test Item Value Reference Range Interpretation Comments GLUBED (test code = GLUBED) 220 mg/dL 74-106 H Performed by certified butadiene convertor operator at [facility] [id number] 07:46:00* Test Item Value Reference Range Interpretation Comments GLUBED (test code = GLUBED) 134 mg/dL 74-106 H Performed by certified butadiene convertor operator at [facility] BASIC METABOLIC [id number] 06:24:00* Test Item Value Reference Range Interpretation Comments SODIUM (test code = NA) 135 mmol/L 136-145 L POTASSIUM (test code = K) 4.3 mmol/L 3.5-5.1 N CHLORIDE (test code = CL) 100.0 mmol/L 98-107 N CARBON DIOXIDE (test code = CO2) 28.0 mmol/L 21-32 N ANION GAP (test code = GAP) 11.3 10-20 N GLUCOSE (test code = GLU) 164 mg/dL 74-106 H BLOOD UREA NITROGEN (test code = BUN) 32 mg/dL 7-18 H GLOMERULAR FILTRATION RATE (test code = GFR) > 60 mL/min >=60 Estimated GFR by using Modified MDRD formula.Chronic kidney disease is defined as either kidney damageor GFR <60 mL/min/1.73 m2 for >3 months. CREATININE (test code = CREAT) 0.80 mg/dL 0.7-1.3 N BUN/CREATININE RATIO (test code = BUN/CREA) 40.0 10-20 H CALCIUM (test code = CA) 9.3 mg/dL 8.5-10.1 N - XR CHEST 1 [id number] 06:15:00 FAX: Ramon Ortega [phone] [place]: St: [facility] FAX: Maikol Capps [facility] [phone] Name: MARLEN NOLAND [facility] : 1945 Age/S: 74/M [address] [facility] Unit #: [id number] Loc: V.S25 [place] [address] Phys: Ramon Ortega Acct: [id number] Dis Date: Status: ADM IN PHONE #: [phone] Exam Date: 04/06/2019 0540 FAX #: [phone] Reason: updated pulm view EXAMS: CPT CODE: [id number] XR CHEST 1 V 30953 CLINICAL HISTORY: updated pulm view TECHNIQUE: AP chest x-ray COMPARISON: Previous day. IMPRESSION: No significant interval change. Mild bibasilar subsegmental atelectasis. No airspace consolidation or pleural effusion. Elevation of the right hemidiaphragm. Normal heart size. Sternotomy/CABG. LOCATION: at 0615 Reported and signed by: Netta Hidalgo D.O. CC: Ramon Ortega; Maikol Hendrickson Technologist: CINDY OSHEA JR Trnscrd Date/Time/By: 04/06/2019 (0615) : By: [email or web address] Orig Print D/T: S: 04/06/2019 (0639) PAGE 1 Signed Report CBC W/AUTO [id number] 05:44:00* Test Item Value Reference Range Interpretation Comments WHITE BLOOD CELL (test code = WBC) 9.2 K/mm3 4.5-12.5 N RED BLOOD CELL (test code = RBC) 3.78 mill/mm3 4.0-5.8 L HEMOGLOBIN (test code = HGB) 10.9 gram/dL 13.0-17.5 L HEMATOCRIT (test code = HCT) 33.8 % 42.0-52.0 L MEAN CELL VOLUME (test code = MCV) 89.4 fL 80-98 N MEAN CELL HGB (test code = MCH) 28.8 picogram 27.0-33.0 N MEAN CELL HGB CONCETRATION (test code = MCHC) 32.2 gram/dL 33.0-36. 0 L RED CELL DISTRIBUTION WIDTH (test code = RDW) 14.9 % 11.6-16. 2 N RED CELL DISTRIBUTION WIDTH SD (test code = RDW-SD) 49.3 fL 37 .0-51.0 N PLATELET COUNT (test code = PLT) 252 K/mm3 150-450 N MEAN PLATELET VOLUME (test code = MPV) 9.8 fL 6.7-11.0 N NEUTROPHIL % (test code = NT%) 76.2 % 39.0-69.0 H IMMATURE GRANULOCYTE % (test code = IG%) 0.4 % 0.0-5.0 N LYMPHOCYTE % (test code = LY%) 15.8 % 25.0-55.0 L MONOCYTE % (test code = MO%) 7.5 % 0.0-10.0 N EOSINOPHIL % (test code = EO%) 0.0 % 0.0-5.0 N BASOPHIL % (test code = BA%) 0.1 % 0.0-1.0 N NUCLEATED RBC % (test code = NRBC%) 0.0 % 0-0 N NEUTROPHIL # (test code = NT#) 7.00 K/mm3 1.8-7.7 N IMMATURE GRANULOCYTE # (test code = IG#) 0.04 x10 3/uL 0-0.03 H LYMPHOCYTE # (test code = LY#) 1.45 K/mm3 1.0-5.0 N MONOCYTE # (test code = MO#) 0.69 K/mm3 0-0.8 N EOSINOPHIL # (test code = EO#) 0.00 K/mm3 0.0-0.5 N BASOPHIL # (test code = BA#) 0.01 K/mm3 0.0-0.2 N NUCLEATED RBC # (test code = NRBC#) 0.00 K/mm3 0.0-0.1 N MANUAL DIFF REQUIRED (test code = MDIFF) NO [id number] 20:53:00* Test Item Value Reference Range Interpretation Comments GLUBED (test code = GLUBED) 285 mg/dL 74-106 H Performed by certified butadiene convertor operator at [facility] [id number] 15:47:00* Test Item Value Reference Range Interpretation Comments GLUBED (test code = GLUBED) 207 mg/dL 74-106 H Performed by certified butadiene convertor operator at [facility] [id number] 11:12:00* Test Item Value Reference Range Interpretation Comments GLUBED (test code = GLUBED) 195 mg/dL 74-106 H Performed by certified butadiene convertor operator at [facility] [id number] 07:27:00* Test Item Value Reference Range Interpretation Comments GLUBED (test code = GLUBED) 216 mg/dL 74-106 H Performed by certified butadiene convertor operator at [facility] - XR CHEST 1 [id number] 06:24:00 FAX: Ramon Ortega [phone] [place]: B St: ADM FAX: Maikol Capps [facility] [phone] Name: MARLEN NOLAND [facility] : 1945 Age/S: 74/M [address] [facility] Unit #: [id number] Loc: V.S25 [place], [place] [address] Phys: Ramon Ortega Acct: [id number] Dis Date: Status: ADM IN PHONE #: [phone] Exam Date: 04/05/2019 0537 FAX #: [phone] Reason: updated pulm view EXAMS: CPT CODE: [id number] XR CHEST 1 V 68332 CLINICAL HISTORY: Recurrent UTI TECHNIQUE: AP chest x-ray COMPARISON: Previous day. IMPRESSION: No significant interval change. Mild bibasilar subsegmental atelectasis. No airspace consolidation or pleural effusion. Elevation of the right hemidiaphragm. Normal heart size. Sternotomy/CABG. LOCATION: LP at 0624 Reported and signed by: Netta Hidalgo D.O. CC: Ramon Ortega; Maikol Hendricksonh Technologist: CINDY Dickson Trnscrd Date/Time/By: 04/05/2019 (06) : By: [email or web address] Orig Print D/T: S: 04/05/2019 (0627) PAGE 1 Signed Report BASIC METABOLIC [id number] 04:10:00* Test Item Value Reference Range Interpretation Comments SODIUM (test code = NA) 137 mmol/L 136-145 N POTASSIUM (test code = K) 4.2 mmol/L 3.5-5.1 N CHLORIDE (test code = CL) 100.0 mmol/L 98-107 N CARBON DIOXIDE (test code = CO2) 32.0 mmol/L 21-32 N ANION GAP (test code = GAP) 9.2 10-20 L GLUCOSE (test code = GLU) 192 mg/dL 74-106 H BLOOD UREA NITROGEN (test code = BUN) 22 mg/dL 7-18 H GLOMERULAR FILTRATION RATE (test code = GFR) > 60 mL/min >=60 Estimated GFR by using Modified MDRD formula.Chronic kidney disease is defined as either kidney damageor GFR <60 mL/min/1.73 m2 for >3 months. CREATININE (test code = CREAT) 0.70 mg/dL 0.7-1.3 N BUN/CREATININE RATIO (test code = BUN/CREA) 31.4 10-20 H CALCIUM (test code = CA) 9.4 mg/dL 8.5-10.1 N BASIC METABOLIC [id number] 03:53:00* Test Item Value Reference Range Interpretation Comments SODIUM (test code = NA) 137 mmol/L 136-145 N POTASSIUM (test code = K) 4.2 mmol/L 3.5-5.1 N CHLORIDE (test code = CL) 100.0 mmol/L 98-107 N CARBON DIOXIDE (test code = CO2) mmol/L 21-32 ANION GAP (test code = GAP) 10-20 GLUCOSE (test code = GLU) mg/dL 74-106 BLOOD UREA NITROGEN (test code = BUN) mg/dL 7-18 GLOMERULAR FILTRATION RATE (test code = GFR) mL/min >=60 CREATININE (test code = CREAT) mg/dL 0.7-1.3 BUN/CREATININE RATIO (test code = BUN/CREA) 10-20 CALCIUM (test code = CA) mg/dL 8.5-10.1 CBC W/AUTO [id number] 03:44:00* Test Item Value Reference Range Interpretation Comments WHITE BLOOD CELL (test code = WBC) 8.3 K/mm3 4.5-12.5 N RED BLOOD CELL (test code = RBC) 3.81 mill/mm3 4.0-5.8 L HEMOGLOBIN (test code = HGB) 11.1 gram/dL 13.0-17.5 L HEMATOCRIT (test code = HCT) 33.2 % 42.0-52.0 L MEAN CELL VOLUME (test code = MCV) 87.1 fL 80-98 N MEAN CELL HGB (test code = MCH) 29.1 picogram 27.0-33.0 N MEAN CELL HGB CONCETRATION (test code = MCHC) 33.4 gram/dL 33.0-36. 0 N RED CELL DISTRIBUTION WIDTH (test code = RDW) 15.1 % 11.6-16. 2 N RED CELL DISTRIBUTION WIDTH SD (test code = RDW-SD) 48.2 fL 37 .0-51.0 N PLATELET COUNT (test code = PLT) 256 K/mm3 150-450 N MEAN PLATELET VOLUME (test code = MPV) 10.0 fL 6.7-11.0 N NEUTROPHIL % (test code = NT%) 84.5 % 39.0-69.0 H IMMATURE GRANULOCYTE % (test code = IG%) 0.4 % 0.0-5.0 N LYMPHOCYTE % (test code = LY%) 10.6 % 25.0-55.0 L MONOCYTE % (test code = MO%) 4.5 % 0.0-10.0 N EOSINOPHIL % (test code = EO%) 0.0 % 0.0-5.0 N BASOPHIL % (test code = BA%) 0.0 % 0.0-1.0 N NUCLEATED RBC % (test code = NRBC%) 0.0 % 0-0 N NEUTROPHIL # (test code = NT#) 7.03 K/mm3 1.8-7.7 N IMMATURE GRANULOCYTE # (test code = IG#) 0.03 x10 3/uL 0-0.03 N LYMPHOCYTE # (test code = LY#) 0.88 K/mm3 1.0-5.0 L MONOCYTE # (test code = MO#) 0.37 K/mm3 0-0.8 N EOSINOPHIL # (test code = EO#) 0.00 K/mm3 0.0-0.5 N BASOPHIL # (test code = BA#) 0.00 K/mm3 0.0-0.2 N NUCLEATED RBC # (test code = NRBC#) 0.00 K/mm3 0.0-0.1 N [id number] 21:15:00* Test Item Value Reference Range Interpretation Comments GLUBED (test code = GLUBED) 247 mg/dL 74-106 H Performed by certified butadiene convertor operator at [facility] [id number] 17:44:00* Test Item Value Reference Range Interpretation Comments GLUBED (test code = GLUBED) 231 mg/dL 74-106 H Performed by certified butadiene convertor operator at [facility] [id number] 11:12:00* Test Item Value Reference Range Interpretation Comments GLUBED (test code = GLUBED) 196 mg/dL 74-106 H Performed by certified butadiene convertor operator at [facility] [id number] 11:06:00* Test Item Value Reference Range Interpretation Comments GLUBED (test code = GLUBED) 208 mg/dL 74-106 H Performed by certified butadiene convertor operator at [facility] - XR CHEST 1 [id number] 06:24:00 FAX: Ramon Ortega [phone] [place]: St: [facility] FAX: Y Maikol Hendrickson [phone] Name: MARLEN NOLAND [facility] : 1945 Age/S: 74/M [address] [facility] Unit #: [id number] Loc: [address] [address] Phys: Ramon Ortega Acct: [id number] Dis Date: Status: ADM IN PHONE #: [phone] Exam Date: 04/04/2019535 FAX #: [phone] Reason: updated pulm view EXAMS: CPT CODE: [id number] XR CHEST 1 V 80108 CLINICAL HISTORY: Shortness of breath TECHNIQUE: AP chest x-ray COMPARISON: Previous day. IMPRESSION: Mild bibasilar subsegmental atelectasis, improved on the left. No airspace consolidation or pleural effusion. Elevation of the right hemidiaphragm. Normal heart size. Sternotomy/CABG. LOCATION: at 0624 Reported and signed by: Netta Hidalgo D.O. CC: Ramon Ortega; Maikol Hendrickson Technologist: CINDY Dickson Trnscrd Date/Time/By: 04/04/2019 (0624) : By: [email or web address] Orig Print D/T: S: 04/04/2019 (0737) PAGE 1 Signed Report BASIC METABOLIC [id number] 05:42:00* Test Item Value Reference Range Interpretation Comments SODIUM (test code = NA) 137 mmol/L 136-145 N POTASSIUM (test code = K) 4.2 mmol/L 3.5-5.1 N CHLORIDE (test code = CL) 100.0 mmol/L 98-107 N CARBON DIOXIDE (test code = CO2) 30.0 mmol/L 21-32 N ANION GAP (test code = GAP) 11.2 10-20 N GLUCOSE (test code = GLU) 226 mg/dL 74-106 H BLOOD UREA NITROGEN (test code = BUN) 13 mg/dL 7-18 N GLOMERULAR FILTRATION RATE (test code = GFR) > 60 mL/min >=60 Estimated GFR by using Modified MDRD formula.Chronic kidney disease is defined as either kidney damageor GFR <60 mL/min/1.73 m2 for >3 months. CREATININE (test code = CREAT) 0.70 mg/dL 0.7-1.3 N BUN/CREATININE RATIO (test code = BUN/CREA) 19.5 10-20 N CALCIUM (test code = CA) 9.3 mg/dL 8.5-10.1 N BASIC METABOLIC [id number] 05:34:00* Test Item Value Reference Range Interpretation Comments SODIUM (test code = NA) 137 mmol/L 136-145 N POTASSIUM (test code = K) 4.2 mmol/L 3.5-5.1 N CHLORIDE (test code = CL) 100.0 mmol/L 98-107 N CARBON DIOXIDE (test code = CO2) mmol/L 21-32 ANION GAP (test code = GAP) 10-20 GLUCOSE (test code = GLU) mg/dL 74-106 BLOOD UREA NITROGEN (test code = BUN) mg/dL 7-18 GLOMERULAR FILTRATION RATE (test code = GFR) mL/min >=60 CREATININE (test code = CREAT) mg/dL 0.7-1.3 BUN/CREATININE RATIO (test code = BUN/CREA) 10-20 CALCIUM (test code = CA) mg/dL 8.5-10.1 CBC W/AUTO [id number] 05:20:00* Test Item Value Reference Range Interpretation Comments WHITE BLOOD CELL (test code = WBC) 9.8 K/mm3 4.5-12.5 N RED BLOOD CELL (test code = RBC) 3.75 mill/mm3 4.0-5.8 L HEMOGLOBIN (test code = HGB) 11.0 gram/dL 13.0-17.5 L HEMATOCRIT (test code = HCT) 32.1 % 42.0-52.0 L MEAN CELL VOLUME (test code = MCV) 85.6 fL 80-98 N MEAN CELL HGB (test code = MCH) 29.3 picogram 27.0-33.0 N MEAN CELL HGB CONCETRATION (test code = MCHC) 34.3 gram/dL 33.0-36. 0 N RED CELL DISTRIBUTION WIDTH (test code = RDW) 15.0 % 11.6-16. 2 N RED CELL DISTRIBUTION WIDTH SD (test code = RDW-SD) 46.6 fL 37 .0-51.0 N PLATELET COUNT (test code = PLT) 241 K/mm3 150-450 N MEAN PLATELET VOLUME (test code = MPV) 10.6 fL 6.7-11.0 N NEUTROPHIL % (test code = NT%) 89.1 % 39.0-69.0 H IMMATURE GRANULOCYTE % (test code = IG%) 0.3 % 0.0-5.0 N LYMPHOCYTE % (test code = LY%) 6.7 % 25.0-55.0 L MONOCYTE % (test code = MO%) 3.8 % 0.0-10.0 N EOSINOPHIL % (test code = EO%) 0.0 % 0.0-5.0 N BASOPHIL % (test code = BA%) 0.1 % 0.0-1.0 N NUCLEATED RBC % (test code = NRBC%) 0.0 % 0-0 N NEUTROPHIL # (test code = NT#) 8.71 K/mm3 1.8-7.7 H IMMATURE GRANULOCYTE # (test code = IG#) 0.03 x10 3/uL 0-0.03 N LYMPHOCYTE # (test code = LY#) 0.65 K/mm3 1.0-5.0 L MONOCYTE # (test code = MO#) 0.37 K/mm3 0-0.8 N EOSINOPHIL # (test code = EO#) 0.00 K/mm3 0.0-0.5 N BASOPHIL # (test code = BA#) 0.01 K/mm3 0.0-0.2 N NUCLEATED RBC # (test code = NRBC#) 0.00 K/mm3 0.0-0.1 N MANUAL DIFF REQUIRED (test code = MDIFF) NO [id number] 22:08:00* Test Item Value Reference Range Interpretation Comments GLUBED (test code = GLUBED) 178 mg/dL 74-106 H Performed by certified butadiene convertor operator at [facility] [id number] 15:07:00* Test Item Value Reference Range Interpretation Comments GLUBED (test code = GLUBED) 138 mg/dL 74-106 H Performed by certified butadiene convertor operator at [facility] BRONCH LAVAGE FLD CELL [id number] 11:39:00* Test Item Value Reference Range Interpretation Comments FLUID SOURCE (test code = SOURCEFL) BRONCHIAL LAVAGE FLUID COLOR (test code = COLFL) RED COLORLESS FLUID APPEARANCE (test code = APPFL) CLOUDY FLUID WBC (test code = WBCFL) 389 per mm3 0-150 H QC performed - Cell count on both sides of chamber agreeswithin 20% ? Y FLUID RBC (test code = RBCFL) 02017 per mm3 0-50 H REVIEWED BY (test code = REVIEW) PATHOLOGIST Reviewed by Dr Anum MackenzieDEGENERATED CHARGE PROCLUEDS ACCURATE DIFFERENTAL COUNT .PREDOMINANCE OF NEUTROPHILS PRESENT [id number] 11:35:00* Test Item Value Reference Range Interpretation Comments GLUBED (test code = GLUBED) 181 mg/dL 74-106 H Performed by certified butadiene convertor operator at [facility] [id number] 07:32:00* Test Item Value Reference Range Interpretation Comments GLUBED (test code = GLUBED) 208 mg/dL 74-106 H Performed by certified butadiene convertor operator at [facility] - XR CHEST 1 [id number] 06:22:00 FAX: Ramon Ortega [phone] [place]: B St: ADM FAX: Maikol Capps [facility] [phone] [facility] 1945 Age/S: 74/M [address] [facility] Unit #: [id number] Loc: [address] [address] Phys: Ramon Ortega Acct: [id number] Dis Date: Status: ADM IN PHONE #: [phone] Exam Date: 04/03/2019 0550 FAX #: [phone] Reason: updated pulm view EXAMS: CPT CODE: [id number] XR CHEST 1 V 26543 CLINICAL HISTORY: Shortness of breath TECHNIQUE: AP chest x-ray COMPARISON: Previous day. IMPRESSION: No significant interval change. Mild bibasilar subsegmental atelectasis. No airspace consolidation. Elevation of the right hemidiaphragm. Normal heart size. Sternotomy/CABG. ET and NG tubes and removed. LOCATION: LP at 0622 Reported and signed by: Netta Hidalgo D.O. CC: Ramon Ortega; Maikol Hendrickson Technologist: CINDY Dickson Trnscrd Date/Time/By: 04/03/2019 (0622) : By: [email or web address] Orig Print D/T: S: 04/03/2019 (0702) PAGE 1 Signed Report BASIC METABOLIC [id number] 03:17:00* Test Item Value Reference Range Interpretation Comments SODIUM (test code = NA) 135 mmol/L 136-145 L POTASSIUM (test code = K) 3.7 mmol/L 3.5-5.1 N CHLORIDE (test code = CL) 101.0 mmol/L 98-107 N CARBON DIOXIDE (test code = CO2) 27.0 mmol/L 21-32 N ANION GAP (test code = GAP) 10.7 10-20 N GLUCOSE (test code = GLU) 193 mg/dL 74-106 H BLOOD UREA NITROGEN (test code = BUN) 7 mg/dL 7-18 N GLOMERULAR FILTRATION RATE (test code = GFR) > 60 mL/min >=60 Estimated GFR by using Modified MDRD formula.Chronic kidney disease is defined as either kidney damageor GFR <60 mL/min/1.73 m2 for >3 months. CREATININE (test code = CREAT) 0.70 mg/dL 0.7-1.3 N BUN/CREATININE RATIO (test code = BUN/CREA) 9.5 10-20 L CALCIUM (test code = CA) 8.8 mg/dL 8.5-10.1 N CBC W/AUTO [id number] 03:05:00* Test Item Value Reference Range Interpretation Comments WHITE BLOOD CELL (test code = WBC) 8.7 K/mm3 4.5-12.5 N RED BLOOD CELL (test code = RBC) 3.51 mill/mm3 4.0-5.8 L HEMOGLOBIN (test code = HGB) 10.3 gram/dL 13.0-17.5 L HEMATOCRIT (test code = HCT) 31.2 % 42.0-52.0 L MEAN CELL VOLUME (test code = MCV) 88.9 fL 80-98 N MEAN CELL HGB (test code = MCH) 29.3 picogram 27.0-33.0 N MEAN CELL HGB CONCETRATION (test code = MCHC) 33.0 gram/dL 33.0-36. 0 N RED CELL DISTRIBUTION WIDTH (test code = RDW) 15.0 % 11.6-16. 2 N RED CELL DISTRIBUTION WIDTH SD (test code = RDW-SD) 48.1 fL 37 .0-51.0 N PLATELET COUNT (test code = PLT) 201 K/mm3 150-450 N MEAN PLATELET VOLUME (test code = MPV) 9.6 fL 6.7-11.0 N NEUTROPHIL % (test code = NT%) 90.3 % 39.0-69.0 H IMMATURE GRANULOCYTE % (test code = IG%) 0.2 % 0.0-5.0 N LYMPHOCYTE % (test code = LY%) 7.4 % 25.0-55.0 L MONOCYTE % (test code = MO%) 1.8 % 0.0-10.0 N EOSINOPHIL % (test code = EO%) 0.2 % 0.0-5.0 N BASOPHIL % (test code = BA%) 0.1 % 0.0-1.0 N NUCLEATED RBC % (test code = NRBC%) 0.0 % 0-0 N NEUTROPHIL # (test code = NT#) 7.81 K/mm3 1.8-7.7 H IMMATURE GRANULOCYTE # (test code = IG#) 0.02 x10 3/uL 0-0.03 N LYMPHOCYTE # (test code = LY#) 0.64 K/mm3 1.0-5.0 L MONOCYTE # (test code = MO#) 0.16 K/mm3 0-0.8 N EOSINOPHIL # (test code = EO#) 0.02 K/mm3 0.0-0.5 N BASOPHIL # (test code = BA#) 0.01 K/mm3 0.0-0.2 N NUCLEATED RBC # (test code = NRBC#) 0.00 K/mm3 0.0-0.1 N MANUAL DIFF REQUIRED (test code = MDIFF) NO BASIC METABOLIC [id number] 03:02:00* Test Item Value Reference Range Interpretation Comments SODIUM (test code = NA) 135 mmol/L 136-145 L POTASSIUM (test code = K) 3.7 mmol/L 3.5-5.1 N CHLORIDE (test code = CL) 101.0 mmol/L 98-107 N CARBON DIOXIDE (test code = CO2) mmol/L 21-32 ANION GAP (test code = GAP) 10-20 GLUCOSE (test code = GLU) mg/dL 74-106 BLOOD UREA NITROGEN (test code = BUN) mg/dL 7-18 GLOMERULAR FILTRATION RATE (test code = GFR) mL/min >=60 CREATININE (test code = CREAT) mg/dL 0.7-1.3 BUN/CREATININE RATIO (test code = BUN/CREA) 10-20 CALCIUM (test code = CA) mg/dL 8.5-10.1 ARTERIAL BLOOD [id number] 21:35:00* Test Item Value Reference Range Interpretation Comments ARTERIAL BLOOD GAS PH (test code = PHA) 7.37 7.35-7.45 N ARTERIAL BLOOD GAS PCO2 (test code = PCO2A) 41.1 mm Hg 35-45 N ARTERIAL BLOOD GAS PO2 (test code = PO2A) 150.6 mmHg 80-100 H BICARBONATE TOTAL HCO3 (test code = HCO3) 23.1 mmol/L 23.0-27.0 N BASE EXCESS (test code = RHEA) -2.1 mmol/L -3.0-5.0 N ABG O2 SATURATION (test code = SATA) 98.4 % 90.0-98.0 H ABG TYPE (test code = TYPEA) Arterial FIO2 (test code = FIO2A) 50.0 ABG VENT MODE (test code = MODEA) Assist Control ABG VENT RESP RATE (test code = RRA) 18.0 per min ABG TIDAL VOLUME (test code = TVA) 450.0 mL ABG PEEP (test code = PEEPA) 6.0 cmH2O ABG SITE (test code = SITEA) ARTERIAL LINE MODIFIED ALLENS (test code = MODALL) Unable CHECK PERFORMED SODIUM (test code = NA/ABG) 132.7 mEq/L 135-148 L POTASSIUM (test code = K/ABG) 4.1 mEq/L 3.5-4.5 N CHLORIDE (test code = CL/ABG) 104 mEq/L 98-106 N GLUCOSE (test code = GLU/ABG) 146 mg/dL 74-99 H HEMATOCRIT (test code = HCT/ABG) 31 % 42-52 L IONIZED CALCIUM (test code = CAIABG) 1.15 mmol/L 1.1-1.37 N TOTAL HGB (test code = THB) 10.5 gram/dL 13.0-17.5 L HGB O2 SAT (test code = HBOSAT) 97.8 % 94.00-98.00 N CARBOXYHEMOGLOBIN (test code = HOHGBT) 0.2 %totalHg 0.5-1.5 LL Results called to and read back by Jackson 04:45 - 04/02/2019; by Buck METHEMOGLOBIN (test code = METHGB) 0.4 % 0.0-1.50 N O2 CONTENT (test code = O2CT) 14.7 % vol 18.0-22.0 L [id number] 20:10:00* Test Item Value Reference Range Interpretation Comments GLUBED (test code = GLUBED) 168 mg/dL 74-106 H Performed by certified butadiene convertor operator at [facility] [id number] 15:01:00* Test Item Value Reference Range Interpretation Comments GLUBED (test code = GLUBED) 152 mg/dL 74-106 H Performed by certified butadiene convertor operator at [facility] - US ABDOMEN [id number] 14:44:00 Name: MARLEN NOLAND [facility] : 1945 Age/S: 74 / M [address] [place] Unit #: [id number] Loc: [facility] [place] [address] Phys: Judith Hidalgo MD Acct: [id number] Dis Date: Status: ADM IN PHONE #: [phone] Exam Date: 04/02/2019 1315 FAX #: [phone] Reason: ACUTE CHOLECYSTITIS EXAMS: CPT CODE: [id number] US ABDOMEN COMPLETE 33753 HISTORY: ACUTE CHOLECYSTITIS TECHNIQUE: Static grayscale and color Doppler images from real time sonographic evaluation of the abdomen. Spectral waveform analysis of the portal vein. COMPARISON: CT from earlier today FINDINGS: LIVER: Hepatomegaly, measuring 18 cm craniocaudal. Mildly increased parenchymal echogenicity. No intrahepatic biliary dilation. Hepatopedal flow identified within the portal vein. GALLBLADDER: No cholelithiasis. No gallbladder wall thickening or pericholecystic fluid. Technologist reports negative sonographic Nevarez's sign. COMMON DUCT: Normal caliber at 5 mm. PANCREAS: Obscured. KIDNEYS: Normal parenchymal echogenicity. Right kidney measures 11.8 x 4.9 x 5.0 cm. Left kidney measures 11.1 x 4.4 x 4.7 cm. Septated 4.8 cm inferior left renal cyst. No hydronephrosis. SPLEEN: Normal parenchymal echogenicity. AORTA/IVC: No abdominal aortic aneurysm. Patent IVC. OTHER: There is no free fluid. IMPRESSION: No cholelithiasis or sonographic evidence of acute cholecystitis. No biliary dilation. Hepatomegaly with mildly increased echogenicity, possible fatty changes. LOCATION: at 1444 Reported and signed by: Netta Hidalgo D.O. PAGE 1 Signed Report (CONTINUED) Name: MARLEN NOLAND [facility] : 1945 Age/S: 74 / M [address] [facility] Unit #: [id number] Loc: [place] [place] [address] Phys: Judith Hidalgo MD Acct: [id number] Dis Date: Status: ADM IN PHONE #: [phone] Exam Date: 04/02/2019 1315 FAX #: [phone] Reason: ACUTE CHOLECYSTITIS EXAMS: CPT CODE: [id number] US ABDOMEN COMPLETE 69939 <Continued> CC: Judith Hidalgo MD; Maikol Hendrickson Technologist: HEIDI CASTELLON Trnscb Date/Time: 04/02/2019 (2714) [email or web address] Orig Print D/T: S: 04/03/2019 (6474) Probe: PAGE 2 Signed Report LACTIC [id number] 11:19:00* Test Item Value Reference Range Interpretation Comments LACTIC ACID (test code = LACT) 3.4 mmol/L 0.4-1.9 HH Results called to [id number] by V.LAB.GP 04/02/19 1119Critical results verified and read back by Nurse? Y [id number] 10:18:00* Test Item Value Reference Range Interpretation Comments GLUBED (test code = GLUBED) 142 mg/dL 74-106 H Performed by certified butadiene convertor operator at [facility] [id number] 07:31:00* Test Item Value Reference Range Interpretation Comments MAGNESIUM (test code = MAG) 1.9 mg/dL 1.8-2.4 N [id number] 07:26:00* Test Item Value Reference Range Interpretation Comments GLUBED (test code = GLUBED) 102 mg/dL 74-106 N Performed by certified butadiene convertor operator at [facility] - XR CHEST 1 [id number] 07:00:00 FAX: Ramon Ortega [phone] [place]: B St: ADM FAX: Maikol Capps [phone] Name: MARLEN NOLAND [facility] : 1945 Age/S: 74/M [address] Unit #: [id number] Loc: V.S25 [place] [address] Phys: Ramon Ortega Acct: [id number] Dis Date: Status: ADM IN PHONE #: [phone] Exam Date: 04/02/2019 0505 FAX #: [phone] Reason: updated pulm view EXAMS: CPT CODE: [id number] XR CHEST 1 V 47861 CLINICAL HISTORY: Shortness of breath TECHNIQUE: AP chest x-ray COMPARISON: Previous day. IMPRESSION: Improved right basilar atelectasis. Elevation of the right hemidiaphragm. Left lung is clear. Normal heart size. ET and NG tubes. LOCATION: at 0700 Reported and signed by: Netta Hidalgo D.O. CC: Ramon Ortega; Maikol Hendrickson Technologist: DAO IRVIN RT; Marcus Deng RT(R) Trnscrd Date/Time/By: 04/02/2019 (0700) : By: [email or web address] Orig Print D/T: S: 04/02/2019 (0703) PAGE 1 Signed Report - CT ABD PELVIS W/CONT 2019-04-02 05:42:00 Name: MARLEN NOLAND [facility] : 1945 Age/S: 74 / M [address] Unit #: [id number] Loc: [place] [address] Phys: Judith Hidalgo MD Acct: [id number] Dis Date: Status: ADM IN PHONE #: [phone] Exam Date: 04/02/2019 0322 FAX #: [phone] Reason: sepsis EXAMS: CPT CODE: [id number] CT ABD PELVIS W/CONT 38323 EXAM: CT ABDOMEN AND PELVIS WITH IV CONTRAST DICTATION LOCATION: H48 HISTORY: Male, 74 years of age with sepsis TECHNIQUE: Contrast: Nonionic IV contrast was given. No GI contrast was given. Portal venous phase: Abdomen and pelvis Delayed phase: Abdomen and pelvis Reconstructions: Coronal and sagittal One or more of the following dose reduction techniques were used: Automated exposure control; adjustment of the mA and/or kV according to the patient size; and/or use of iterative reconstruction technique. COMPARISON: Previous CT abdomen and pelvis without contrast performed 11/16/2018 FINDINGS: Statements: Exam quality is acceptable. Lower thorax: Scarring noted in right lower lobe. There is chronic pleural scarring and small chronic pleural effusion on the right. Hepatobiliary: The liver is normal without focal lesion. Color wall mildly thickened. No obvious gallbladder intraluminal filling defect. No biliary dilation. Pancreas: Normal. Spleen: Normal. Adrenals: Normal. Genitourinary: No solid renal mass, significant cortical thinning, obvious renal stone or hydronephrosis. Ureters are unremarkable. Urinary bladder is decompressed with Nevarez catheter and air in the lumen. The visualized reproductive organs are unremarkable. Gastrointestinal: No bowel obstruction or perienteric inflammation. The appendix is normal. Enteric tube is present in the stomach. Vascular: Extensive atherosclerotic plaque seen within the aorta and branch vessels. No aneurysm or dissection. PAGE 1 Signed Report (CONTINUED) Name: MARLEN NOLAND [facility] : 1945 Age/S: 74 / M [address] [facility] Unit #: [id number] Loc: [place] [address] Phys: Kiel Hidalgo MD Acct: [id number] Dis Date: Status: ADM IN PHONE #: [phone] Exam Date: 04/02/2019 0322 FAX #: [phone] Reason: sepsis EXAMS: CPT CODE: [id number] CT ABD PELVIS W/CONT 00235 <Continued> Lymphatics: No enlarged lymph nodes by CT size criteria. Bones/Soft Tissues: Extensive hardware in the lower lumbar spine produces significant streak artifact at those levels. No acute osseous abnor malities are identified. No ventral hernias. Peritoneum/Other: No free intraperitoneal air. No free intraperitoneal fluid. I MPRESSION: 1. Gallbladder wall is mildly thickened. If there is concer n for acute gallbladder pathology consider further assessment with ultra sound. 2. No other significant findings in the abdomen or pelvis. at 0542 Reported and signed by: Odalys Malik MD CC: Jduith Hidalgo MD; Maikol Hendrickson Technologist:Nav Alvarado, RT(R)(CT) CTDI: DLP: Trnscb Date/Time: 04/02/2019 ( 0542) SalvadorW Orig Print D/T: S: 04/02/2019 (0545) PAGE 2 Signed Report - CTA CHEST FOR [id number] 05:34:00 Name: MARLEN NOLAND [facility] : 1945 Age/S: 74 / M [address] [facility] Unit #: [id number] Loc: [place] [address] Phys: Judith Hidalgo MD Acct: [id number] Dis Date: Status: ADM IN PHONE #: [phone] Exam Date: 04/02/2019321 FAX #: [phone] Reason: shortness of breath EXAMS: CPT CODE: [id number] [place] [address] DICTATION LOCATION: [facility] HISTORY: Male, 74 years of age with shortness of breath EXAM: CT ANGIOGRAPHY OF THE CHEST COMPARISON: Chest x-ray performed 9 hours prior, CT chest without contrast 12/01/2018 TECHNIQUE: Helical axial images were obtained from thoracic inlet to upper abdomen with nonionic IV contrast using the CT angiography protocol. Image post processing with MIP and multiplanar reconstruction were performed at the advanced workstation. One or more of the following dose reduction techniques were used: Automated exposure control; adjustment of the mA and/or kV according to the patient size; and/or use of iterative reconstruction technique. FINDINGS: AORTA: Extensive mixed plaque seen throughout the thoracic aorta and abdominal aorta. No aneurysm or dissection. PULMONARY ARTERIES: Within normal limits size and well enhanced. There is no abnormal filling defect to suggest pulmonary embolism. HEART: Heart is enlarged. Coronary artery calcifications are noted. No significant pericardial effusion. The patient has had a midline sternotomy. MEDIASTINUM: No pathologically enlarged lymph nodes by CT criteria. Visualized portions of thyroid gland unremarkable. PLEURA: There is a small chronic right pleural effusion with thick rind, unchanged since previous chest CT. No left effusion. No pneumothorax. LUNGS: Since previous CT chest of 12/01/2018 the bilateral alveolar and interstitial opacities have significantly improved with residual scarring and volume loss in the medial right upper lobe, posterior right lower lobe and left lower lobe. No new lung opacities are seen. No significant emphysema. ET tube is present with tip above ny. No other tracheobronchial filling defects. OTHER: No acute osseous abnormality. IMPRESSION: 1. No pulmonary embolism. 2. Extensive ASCVD and aorta and coronary arteries. No aortic aneurysm or dissection. 3. Since 12/01/2018, the bilateral pneumonic opacities have significantly improved with resultant scarring and volume loss in the right upper lobe, right lower lobe, and left lower lobe. No new PAGE 1 Signed Report (CONTINUED) Name: MARLEN NOLAND [facility] : 1945 Age[facility]S: 74 [facility]: [id number] Loc: [place] [address] Phys: Judith Hidalgo MD Acct: [id number] Dis Date: Status: ADM IN PHONE #: [phone] Exam Date: 04/02/2019321 FAX #: [phone] Reason: shortness of breath EXAMS: CPT CODE: [id number] [place] [address] <Continued> pulmonary opacities are seen. 4. Chronic small right pleural effusion with thick rind, unchanged. at 0534 Reported and signed by: Odalys Malik MD CC: Judith Hidalgo MD; Maikol Hendrickson Technologist:Nav Alvarado, RT(R)(CT) CTDI: DLP: Trnscb Date/Time: 04/02/2019 (0534) [email or web address] Orig Print D/T: S: 04/02/2019 (0537) PAGE 2 Signed Report - CT HEAD/BRAIN W/O [id number] 05:05:00 Name: MARLEN NOLAND [facility] : 1945 Age/S: 74 / M [address] Unit #: [id number] Loc: [place] [address] Phys: Tata Enamorado MD Acct: [id number] Di s Date: Status: ADM IN PHONE #: Exam Date: 04/02/2019 0322 FAX #: Reason: ALTERED MENTAL STATUS EXAMS: CPT CODE: [id number] CT HEAD/BRAIN W/O CONT 78219 DICTATION LOCATION: H48 HISTORY: Male, 74 years of age with ALTERED MENTAL STATUS EXAM: CT BRAIN WITHOUT IV CONTRAST COMPARISON: 12/01/2018 TECHNIQUE: Transaxial images were obtained through the brain without IV contrast. One or more of the following dose reduction techniques were used: Automated exposure control; adjustment of the mA and/or kV ac cording to the patient size; and/or use of iterative reconstruction techni que. FINDINGS: ET and enteric tubes are present. There is no acute intra-axial or extra-axial hemorrhage, mass, mass effect or midline shift. No acute loss of the cortical monahan/white junctions is seen. There is diffuse parenchymal atrophy consistent with patient age. Mild periventr icular hypodensities are consistent with chronic small vessel ischemic dis ease. No calvarial fracture is seen. The sinuses and mastoids are clear. IMPRESSION: 1. No acute intracranial hemorrhage, infarc t, or mass. 2. Age-related atrophy and chronic small vessel ischemic inj uries. at 05 05 Reported and signed by: Odalys Malik MD CC: Jenn Enamorado MD; Maikol Hendrickson Technologist:Nav Alvarado RT(R)(CT) CTDI: DLP: Trnscb Date/Time: 04/02/2019 (0506) tMEGAN Orig Print D/T: S: 04/02/2019 (8352) PAGE 1 Signed Report LACTIC [id number] 04:36:00* Test Item Value Reference Range Interpretation Comments LACTIC ACID (test code = LACT) 4.0 mmol/L 0.4-1.9 HH Results called to [id number] by [email or web address] 04/02/19 0434Critical results verified and read back by Nurse? Y BASIC METABOLIC [id number] 04:33:00* Test Item Value Reference Range Interpretation Comments SODIUM (test code = NA) 139 mmol/L 136-145 N POTASSIUM (test code = K) 4.1 mmol/L 3.5-5.1 N CHLORIDE (test code = CL) 106.0 mmol/L 98-107 N CARBON DIOXIDE (test code = CO2) 24.0 mmol/L 21-32 N ANION GAP (test code = GAP) 13.1 10-20 N GLUCOSE (test code = GLU) 139 mg/dL 74-106 H BLOOD UREA NITROGEN (test code = BUN) 9 mg/dL 7-18 N GLOMERULAR FILTRATION RATE (test code = GFR) > 60 mL/min >=60 Estimated GFR by using Modified MDRD formula.Chronic kidney disease is defined as either kidney damageor GFR <60 mL/min/1.73 m2 for >3 months. CREATININE (test code = CREAT) 0.70 mg/dL 0.7-1.3 N BUN/CREATININE RATIO (test code = BUN/CREA) 12.9 10-20 N CALCIUM (test code = CA) 8.2 mg/dL 8.5-10.1 L BASIC METABOLIC [id number] 04:29:00* Test Item Value Reference Range Interpretation Comments SODIUM (test code = NA) 139 mmol/L 136-145 N POTASSIUM (test code = K) 4.1 mmol/L 3.5-5.1 N CHLORIDE (test code = CL) 106.0 mmol/L 98-107 N CARBON DIOXIDE (test code = CO2) mmol/L 21-32 ANION GAP (test code = GAP) 10-20 GLUCOSE (test code = GLU) mg/dL 74-106 BLOOD UREA NITROGEN (test code = BUN) mg/dL 7-18 GLOMERULAR FILTRATION RATE (test code = GFR) mL/min >=60 CREATININE (test code = CREAT) mg/dL 0.7-1.3 BUN/CREATININE RATIO (test code = BUN/CREA) 10-20 CALCIUM (test code = CA) mg/dL 8.5-10.1 CBC W/AUTO [id number] 04:18:00* Test Item Value Reference Range Interpretation Comments WHITE BLOOD CELL (test code = WBC) 9.7 K/mm3 4.5-12.5 N RED BLOOD CELL (test code = RBC) 3.38 mill/mm3 4.0-5.8 L HEMOGLOBIN (test code = HGB) 9.7 gram/dL 13.0-17.5 L HEMATOCRIT (test code = HCT) 31.0 % 42.0-52.0 L MEAN CELL VOLUME (test code = MCV) 91.7 fL 80-98 N MEAN CELL HGB (test code = MCH) 28.7 picogram 27.0-33.0 N MEAN CELL HGB CONCETRATION (test code = MCHC) 31.3 gram/dL 33.0-36. 0 L RED CELL DISTRIBUTION WIDTH (test code = RDW) 15.3 % 11.6-16. 2 N RED CELL DISTRIBUTION WIDTH SD (test code = RDW-SD) 51.1 fL 37 .0-51.0 H PLATELET COUNT (test code = PLT) 185 K/mm3 150-450 N MEAN PLATELET VOLUME (test code = MPV) 9.7 fL 6.7-11.0 N NEUTROPHIL % (test code = NT%) 74.4 % 39.0-69.0 H IMMATURE GRANULOCYTE % (test code = IG%) 0.3 % 0.0-5.0 N LYMPHOCYTE % (test code = LY%) 17.6 % 25.0-55.0 L MONOCYTE % (test code = MO%) 6.5 % 0.0-10.0 N EOSINOPHIL % (test code = EO%) 1.0 % 0.0-5.0 N BASOPHIL % (test code = BA%) 0.2 % 0.0-1.0 N NUCLEATED RBC % (test code = NRBC%) 0.0 % 0-0 N NEUTROPHIL # (test code = NT#) 7.20 K/mm3 1.8-7.7 N IMMATURE GRANULOCYTE # (test code = IG#) 0.03 x10 3/uL 0-0.03 N LYMPHOCYTE # (test code = LY#) 1.70 K/mm3 1.0-5.0 N MONOCYTE # (test code = MO#) 0.63 K/mm3 0-0.8 N EOSINOPHIL # (test code = EO#) 0.10 K/mm3 0.0-0.5 N BASOPHIL # (test code = BA#) 0.02 K/mm3 0.0-0.2 N NUCLEATED RBC # (test code = NRBC#) 0.00 K/mm3 0.0-0.1 N MANUAL DIFF REQUIRED (test code = MDIFF) NO LACTIC [id number] 01:56:00* Test Item Value Reference Range Interpretation Comments LACTIC ACID (test code = LACT) 3.0 mmol/L 0.4-1.9 Results called to [id number] by [email or web address] 04/02/19 0156Critical results verified and read back by Nurse? Y URINALYSIS [id number] 23:23:00* Test Item Value Reference Range Interpretation Comments UA COLOR (test code = COLU) Light-Yellow YELLOW UA APPEARANCE (test code = APPU) CLEAR CLEAR UA GLUCOSE DIPSTICK (test code = DGLUU) 50 (Trace) mg/dL NEGATIVE A UA BILIRUBIN DIPSTICK (test code = BILU) NEGATIVE mg/dL NEGATIVE UA KETONE DIPSTICK (test code = KETU) NEGATIVE mg/dL NEGATIVE UA SPECIFIC GRAVITY (test code = SGU) 1.018 1.001-1.035 UA BLOOD DIPSTICK (test code = SRINIVASAN) 0.06 mg/dL (1+) mg/dL NEGATIVE A UA PH DIPSTICK (test code = ANAY) 5.5 5.0-8.0 UA PROTEIN DIPSTICK (test code = PROU) 30 (1+) mg/dL NEGATIVE A UA UROBILINIOGEN DIPSTICK (test code = URO) Normal mg/dL NEGATIVE UA NITRITE DIPSTICK (test code = RANDY) NEGATIVE NEGATIVE UA LEUKOCYTE ESTERASE W REFLEX (test code = LEUUR) NEGATIVE Kiya/uL NEGATIVE UA WBC (test code = WBCU) 6-10 per HPF 0-5 A UA RBC (test code = RBCU) 0-2 #/HPF 0-5 UA EPITHELIAL CELLS (test code = EPIU) FEW per HPF FEW UA BACTERIA (test code = BACU) NONE SEEN #/HPF NONE UA MUCUS (test code = MUCU) FEW #/LPF FEW Urine Source? CatheterCOMPREHENSIVE METABOLIC [id number] 22:49:00* Test Item Value Reference Range Interpretation Comments SODIUM (test code = NA) 139 mmol/L 136-145 N POTASSIUM (test code = K) 4.2 mmol/L 3.5-5.1 N CHLORIDE (test code = CL) 107.0 mmol/L 98-107 N CARBON DIOXIDE (test code = CO2) 25.0 mmol/L 21-32 N ANION GAP (test code = GAP) 11.2 10-20 N GLUCOSE (test code = GLU) 156 mg/dL 74-106 H BLOOD UREA NITROGEN (test code = BUN) 10 mg/dL 7-18 N GLOMERULAR FILTRATION RATE (test code = GFR) > 60 mL/min >=60 Estimated GFR by using Modified MDRD formula.Chronic kidney disease is defined as either kidney damageor GFR <60 mL/min/1.73 m2 for >3 months. CREATININE (test code = CREAT) 0.60 mg/dL 0.7-1.3 L BUN/CREATININE RATIO (test code = BUN/CREA) 15.8 10-20 N TOTAL PROTEIN (test code = PROT) 6.1 gram/dL 6.4-8.2 L ALBUMIN (test code = ALB) 2.6 g/dL 3.4-5.0 L GLOBULIN (test code = GLOB) 3.5 gram/dL 2.7-4.2 N ALBUMIN/GLOBULIN RATIO (test code = A/G) 0.7 0.75-1.50 L CALCIUM (test code = CA) 8.2 mg/dL 8.5-10.1 L BILIRUBIN TOTAL (test code = BILT) 0.40 mg/dL 0.0-1.0 N SGOT/AST (test code = AST) 76 IUnit/L 15-37 H SGPT/ALT (test code = ALT) 18 IUnit/L 12-78 N ALKALINE PHOSPHATASE TOTAL (test code = ALKP) 67 IUnit/L 45-117 N Note change in reference range due to change in reagent. LIPID PROFILE (CORONARY RISK)2019-04-01 22:49:00* Test Item Value Reference Range Interpretation Comments TRIGLYCERIDES (test code = TRIG) 75 mg/dL 20-150 N CHOLESTEROL (test code = CHOL) 110 mg/dL 0-200 N CHOLESTEROL/HDL RATIO (test code = CHOLHDL) 2.0 RATIO 0-4.9 N RISK ASSOCIATED WITH CHOL/HDL RATIOS: Risk Male Female1/2 AVERAGE 3.43 3.27AVERAGE 4.97 4.442X AVERAGE 9.55 7.053X AVERAGE 23.39 11.04 REFERENCE VALUE IS RELATED TO RISK LEVELS ASRECOMMENDED BY THE [facility]. HEART, LUNG, AND BLOOD INST. HDL CHOLESTEROL (test code = HDL) 46 mg/dL 40-60 N LIPOPROTEIN LDL (test code = LDL) 54 mg/dL 100-129 L Reference Interval: mg/dL mmol/L Optimal <100 <2.6Near/above optimal 100-129 2.6- 3.3Borderline High 130-159 3.4-4.1High 160-189 4.1-4.9Very High >=190 >=4.9========= This LDL result is a direct measurement.========= [id number] 22:49:00* Test Item Value Reference Range Interpretation Comments PHOSPHORUS (test code = PHOS) 2.6 mg/dL 2.5-4.9 N [id number] 22:49:00* Test Item Value Reference Range Interpretation Comments MAGNESIUM (test code = MAG) 1.4 mg/dL 1.8-2.4 L THYROID STIMULATING [id number] 22:49:00* Test Item Value Reference Range Interpretation Comments THYROID STIMULATING HORMONE (test code = TSH) 0.277 uIU/mL 0.36-3.7 4 L TSH REFERENCE RANGES: EUTHYROID: 0.35 - 4.3 mIU/mL HYPO : > 5.5 mIU/mL HYPER : < 0.35 mIU/mL [id number] 22:49:00* Test Item Value Reference Range Interpretation Comments CKMB (test code = CKMBT) 5.8 ng/mL 0-6.0 N [id number] 22:49:00* Test Item Value Reference Range Interpretation Comments TROPONIN-I (test code = TROPI) 0.036 ng/mL 0-0.045 N PROTHROMBIN [id number] 22:48:00* Test Item Value Reference Range Interpretation Comments PROTHROMBIN TIME PATIENT (test code = PTP) 12.2 seconds 9.0-14.0 N INTERNATIONAL NORMAL RATIO (test code = INR) 1.0 0.8-1.2 N The therapeutic range for oral anticoagulant therapy [...] heart valves (2.5-3.5) IS PATIENT ON ANTICOAGULANTS? YLIST ANTICOAGULANTS HEPARINTHROMBOPLASTIN TIME [id number] 22:48:00* Test Item Value Reference Range Interpretation Comments THROMBOPLASTIN TIME PARTIAL (test code = PTT) 29.6 seconds 25.0-36. 5 N IS PATIENT ON ANTICOAGULANTS? YLIST ANTICOAGULANTS HEPARINLACTIC ACID 2019-04-01 22:48:00* Test Item Value Reference Range Interpretation Comments LACTIC ACID (test code = LACT) 2.5 mmol/L 0.4-1.9 Results called to [id number] by VCoralLAB.[facility] 04/01/19 2248Critical results verified and read back by Nurse? Y CBC W/AUTO [id number] 22:46:00* Test Item Value Reference Range Interpretation Comments WHITE BLOOD CELL (test code = WBC) 9.4 K/mm3 4.5-12.5 N RED BLOOD CELL (test code = RBC) 3.35 mill/mm3 4.0-5.8 L HEMOGLOBIN (test code = HGB) 9.8 gram/dL 13.0-17.5 L HEMATOCRIT (test code = HCT) 30.4 % 42.0-52.0 L MEAN CELL VOLUME (test code = MCV) 90.7 fL 80-98 N MEAN CELL HGB (test code = MCH) 29.3 picogram 27.0-33.0 N MEAN CELL HGB CONCETRATION (test code = MCHC) 32.2 gram/dL 33.0-36. 0 L RED CELL DISTRIBUTION WIDTH (test code = RDW) 15.1 % 11.6-16. 2 N RED CELL DISTRIBUTION WIDTH SD (test code = RDW-SD) 49.9 fL 37 .0-51.0 N PLATELET COUNT (test code = PLT) 186 K/mm3 150-450 RESULT VERIFIED BY REPEAT ANALYSIS MEAN PLATELET VOLUME (test code = MPV) 9.9 fL 6.7-11.0 N NEUTROPHIL % (test code = NT%) 76.4 % 39.0-69.0 H IMMATURE GRANULOCYTE % (test code = IG%) 0.3 % 0.0-5.0 N LYMPHOCYTE % (test code = LY%) 15.9 % 25.0-55.0 L MONOCYTE % (test code = MO%) 6.0 % 0.0-10.0 N EOSINOPHIL % (test code = EO%) 1.2 % 0.0-5.0 N BASOPHIL % (test code = BA%) 0.2 % 0.0-1.0 N NUCLEATED RBC % (test code = NRBC%) 0.0 % 0-0 N NEUTROPHIL # (test code = NT#) 7.15 K/mm3 1.8-7.7 N IMMATURE GRANULOCYTE # (test code = IG#) 0.03 x10 3/uL 0-0.03 N LYMPHOCYTE # (test code = LY#) 1.49 K/mm3 1.0-5.0 N MONOCYTE # (test code = MO#) 0.56 K/mm3 0-0.8 N EOSINOPHIL # (test code = EO#) 0.11 K/mm3 0.0-0.5 N BASOPHIL # (test code = BA#) 0.02 K/mm3 0.0-0.2 N NUCLEATED RBC # (test code = NRBC#) 0.00 K/mm3 0.0-0.1 N MANUAL DIFF REQUIRED (test code = MDIFF) NO COMPREHENSIVE METABOLIC [id number] 22:34:00* Test Item Value Reference Range Interpretation Comments SODIUM (test code = NA) 139 mmol/L 136-145 N POTASSIUM (test code = K) 4.2 mmol/L 3.5-5.1 N CHLORIDE (test code = CL) 107.0 mmol/L 98-107 N CARBON DIOXIDE (test code = CO2) mmol/L 21-32 ANION GAP (test code = GAP) 10-20 GLUCOSE (test code = GLU) mg/dL 74-106 BLOOD UREA NITROGEN (test code = BUN) mg/dL 7-18 GLOMERULAR FILTRATION RATE (test code = GFR) mL/min >=60 CREATININE (test code = CREAT) mg/dL 0.7-1.3 BUN/CREATININE RATIO (test code = BUN/CREA) 10-20 TOTAL PROTEIN (test code = PROT) gram/dL 6.4-8.2 ALBUMIN (test code = ALB) g/dL 3.4-5.0 GLOBULIN (test code = GLOB) gram/dL 2.7-4.2 ALBUMIN/GLOBULIN RATIO (test code = A/G) 0.75-1.50 CALCIUM (test code = CA) mg/dL 8.5-10.1 BILIRUBIN TOTAL (test code = BILT) mg/dL 0.0-1.0 SGOT/AST (test code = AST) IUnit/L 15-37 SGPT/ALT (test code = ALT) IUnit/L 12-78 ALKALINE PHOSPHATASE TOTAL (test code = ALKP) IUnit/L 45-117 LIPID PROFILE (CORONARY RISK)2019-04-01 22:34:00* Test Item Value Reference Range Interpretation Comments TRIGLYCERIDES (test code = TRIG) mg/dL 20-150 CHOLESTEROL (test code = CHOL) mg/dL 0-200 CHOLESTEROL/HDL RATIO (test code = CHOLHDL) RATIO 0-4.9 HDL CHOLESTEROL (test code = HDL) mg/dL 40-60 LIPOPROTEIN LDL (test code = LDL) mg/dL 100-129 [id number] 22:34:00* Test Item Value Reference Range Interpretation Comments PHOSPHORUS (test code = PHOS) mg/dL 2.5-4.9 [id number] 22:34:00* Test Item Value Reference Range Interpretation Comments MAGNESIUM (test code = MAG) mg/dL 1.8-2.4 THYROID STIMULATING [id number] 22:34:00* Test Item Value Reference Range Interpretation Comments THYROID STIMULATING HORMONE (test code = TSH) uIU/mL 0.36-3.7 4 [id number] 22:34:00* Test Item Value Reference Range Interpretation Comments CKMB (test code = CKMBT) ng/mL 0-6.0 [id number] 22:34:00* Test Item Value Reference Range Interpretation Comments TROPONIN-I (test code = TROPI) ng/mL 0-0.045 BRONCH LAVAGE FLD CELL [id number] 21:46:00* Test Item Value Reference Range Interpretation Comments FLUID SOURCE (test code = SOURCEFL) BRONCHIAL LAVAGE FLUID COLOR (test code = COLFL) RED COLORLESS FLUID APPEARANCE (test code = APPFL) CLOUDY FLUID WBC (test code = WBCFL) 389 per mm3 0-150 H QC performed - Cell count on both sides of chamber agreeswithin 20% ? Y FLUID RBC (test code = RBCFL) 66682 per mm3 0-50 H TOTAL CELLS COUNTED ON DIFF (test code = TOTCELLFL) cells REVIEWED BY (test code = REVIEW) PATHOLOGIST BRONCH LAVAGE FLD CELL [id number] 21:44:00* Test Item Value Reference Range Interpretation Comments FLUID SOURCE (test code = SOURCEFL) FLUID COLOR (test code = COLFL) RED COLORLESS FLUID APPEARANCE (test code = APPFL) CLOUDY FLUID WBC (test code = WBCFL) 389 per mm3 0-150 H QC performed - Cell count on both sides of chamber agreeswithin 20% ? Y FLUID RBC (test code = RBCFL) 51285 per mm3 0-50 H TOTAL CELLS COUNTED ON DIFF (test code = TOTCELLFL) cells REVIEWED BY (test code = REVIEW) PATHOLOGIST [id number] 20:41:00* Test Item Value Reference Range Interpretation Comments GLUBED (test code = GLUBED) 150 mg/dL 74-106 H Performed by certified butadiene convertor operator at [facility] - XR CHEST 1 [id number] 19:28:00 FAX: Jenn Painter MD [phone] [place]: [address]: ADM FAX: Maikol Capps [facility] [phone] Name: MARLEN NOLAND [facility] : 1945 Age[facility]S: 74[facility]: [id number] Loc: [address] [address] Phys: Jenn Enamorado MD Acct: [id number] Dis Date: Status: ADM IN PHONE #: [phone] Exam Date: 04/01/2019 1807 FAX #: [phone] Reason: s/p intubation EXAMS: CPT CODE: [id number] XR CHEST 1 V [id number] CLINICAL HISTORY: s/p intubation, shortness of breath TECHNIQUE: AP chest x-ray COMPARISON: Previous day. IMPRESSION: Interval placement of ET tube 6 cm above the ny. Interval placement of NG tube into the stomach. No other significant change compared to the previous study. LOCATION: [facility] at 1928 Reported and signed by: Netta Hidalgo D.O. CC: Jenn Enamorado MD; Maikol Hendrickson Technologist: Marlen Meléndez RT(R) Trnscrd Date/Time/By: 04/01/2019 (1927) : By: [email or web address] Orig Print D/T: S: 04/01/2019 (1930) PAGE 1 Signed Report ARTERIAL BLOOD [id number] 18:51:00* Test Item Value Reference Range Interpretation Comments ARTERIAL BLOOD GAS PH (test code = PHA) 7.31 7.35-7.45 L ARTERIAL BLOOD GAS PCO2 (test code = PCO2A) 43.3 mm Hg 35-45 N ARTERIAL BLOOD GAS PO2 (test code = PO2A) 303.1 mmHg 80-100 H BICARBONATE TOTAL HCO3 (test code = HCO3) 21.5 mmol/L 23.0-27.0 L BASE EXCESS (test code = RHEA) -4.6 mmol/L -3.0-5.0 LL Results called to and read back by Dr Heath 18:51 - 04/01/2019; by [email or web address] ABG O2 SATURATION (test code = SATA) 99.1 % 90.0-98.0 H ABG TYPE (test code = TYPEA) Arterial FIO2 (test code = FIO2A) 100.0 ABG VENT MODE (test code = MODEA) Assist Control ABG VENT RESP RATE (test code = RRA) 18.0 per min ABG TIDAL VOLUME (test code = TVA) 450.0 mL ABG PEEP (test code = PEEPA) 8.0 cmH2O ABG SITE (test code = SITEA) ARTERIAL LINE MODIFIED ALLENS (test code = MODALL) Yes CHECK PERFORMED HEMATOCRIT (test code = HCT/ABG) 33 % 42-52 L TOTAL HGB (test code = THB) 11.3 gram/dL 13.0-17.5 L HGB O2 SAT (test code = HBOSAT) 98.2 % 94.00-98.00 H CARBOXYHEMOGLOBIN (test code = HOHGBT) 0.4 %totalHg 0.5-1.5 LL Results called to and read back by Dr Heath 18:51 - 04/01/2019; by [email or web address] METHEMOGLOBIN (test code = METHGB) 0.5 % 0.0-1.50 N O2 CONTENT (test code = O2CT) 16.4 % vol 18.0-22.0 L ARTERIAL BLOOD [id number] 16:27:00* Test Item Value Reference Range Interpretation Comments ARTERIAL BLOOD GAS PH (test code = PHA) 7.29 7.35-7.45 L ARTERIAL BLOOD GAS PCO2 (test code = PCO2A) 53.5 mm Hg 35-45 H ARTERIAL BLOOD GAS PO2 (test code = PO2A) 156.1 mmHg 80-100 H BICARBONATE TOTAL HCO3 (test code = HCO3) 24.9 mmol/L 23.0-27.0 N BASE EXCESS (test code = RHEA) -2.2 mmol/L -3.0-5.0 N ABG O2 SATURATION (test code = SATA) 99.0 % 90.0-98.0 H ABG TYPE (test code = TYPEA) Arterial FIO2 (test code = FIO2A) 40.0 ABG SITE (test code = SITEA) Rt RADIAL ARTERY MODIFIED ALLENS (test code = MODALL) Yes CHECK PERFORMED HEMATOCRIT (test code = HCT/ABG) 32 % 42-52 L TOTAL HGB (test code = THB) 10.9 gram/dL 13.0-17.5 L HGB O2 SAT (test code = HBOSAT) 98.3 % 94.00-98.00 H CARBOXYHEMOGLOBIN (test code = HOHGBT) 0.4 %totalHg 0.5-1.5 LL Results called to and read back by Govind 16:26 - 04/01/2019; by TN METHEMOGLOBIN (test code = METHGB) 0.3 % 0.0-1.50 N O2 CONTENT (test code = O2CT) 15.4 % vol 18.0-22.0 L [id number] 16:18:00* Test Item Value Reference Range Interpretation Comments GLUBED (test code = GLUBED) 124 mg/dL 74-106 H Performed by certified butadiene convertor operator at [facility] [id number] 11:22:00* Test Item Value Reference Range Interpretation Comments GLUBED (test code = GLUBED) 90 mg/dL 74-106 N Performed by certified butadiene convertor operator at [facility] B-TYPE NATRIURETIC [id number] 23:12:00* Test Item Value Reference Range Interpretation Comments B-TYPE NATRIURETIC PEPTIDE (test code = BNP) 87.60 pgram/mL 0-100 N DRUGS OF ABUSE SCREEN [id number] 23:11:00* Test Item Value Reference Range Interpretation Comments UA PH DIPSTICK (test code = ANAY) 6.0 5.0-8.0 URN COCAINE (test code = COCAURN) NEGATIVE <300 ng/mL URN CANNABINOIDS (test code = CANNABURN) NEGATIVE <50 ng/mL URN AMPHETAMINE (test code = AMPHETURN) NEGATIVE <1000 ng/mL URN BARBITURATE (test code = BARBITURN) NEGATIVE <200 ng/mL URN BENZODIAZEPINE (test code = BENZOURN) POSITIVE <200 ng/mL A This test provides only a preliminary test result. A morespecific alternate chemical method must be used in order toobtain a confirmed analytical result. Gas chromatography/mass spectrometry (GC/MS) is thepreferred confirmatory method. Other chemical confirmationmethods are available. Clinical consideration and professional judgment should be applied to any drug of abusetest result, particularly when preliminary positive resultsare used.Unconfirmed screening results must not be used fornon-medical purposes (e.g., employment testing, legaltesting). URN OPIATES (test code = OPIATURN) POSITIVE <300 ng/mL A This test provides only a preliminary test result. A morespecific alternate chemical method must be used in order toobtain a confirmed analytical result. Gas chromatography/mass spectrometry (GC/MS) is thepreferred confirmatory method. Other chemical confirmationmethods are available. Clinical consideration and professional judgment should be applied to any drug of abusetest result, particularly when preliminary positive resultsare used.Unconfirmed screening results must not be used fornon-medical purposes (e.g., employment testing, legaltesting). URN PHENCYCLIDINE (PCP) (test code = PHENCURN) NEGATIVE <25 ng/ mL URN METHADONE (test code = METHAURN) NEGATIVE <300 ng/mL URINALYSIS [id number] 23:03:00* Test Item Value Reference Range Interpretation Comments UA COLOR (test code = COLU) YELLOW YELLOW UA APPEARANCE (test code = APPU) Cloudy CLEAR A UA GLUCOSE DIPSTICK (test code = DGLUU) NEGATIVE mg/dL NEGATIVE UA BILIRUBIN DIPSTICK (test code = BILU) NEGATIVE mg/dL NEGATIVE UA KETONE DIPSTICK (test code = KETU) NEGATIVE mg/dL NEGATIVE UA SPECIFIC GRAVITY (test code = SGU) 1.020 1.001-1.035 UA BLOOD DIPSTICK (test code = SRINIVASAN) Negative mg/dL NEGATIVE UA PH DIPSTICK (test code = ANAY) 5.5 5.0-8.0 UA PROTEIN DIPSTICK (test code = PROU) 10 (Trace) mg/dL NEGATIVE A UA UROBILINIOGEN DIPSTICK (test code = URO) Normal mg/dL NEGATIVE UA NITRITE DIPSTICK (test code = RANDY) NEGATIVE NEGATIVE UA LEUKOCYTE ESTERASE W REFLEX (test code = LEUUR) NEGATIVE Kiya/uL NEGATIVE UA WBC (test code = WBCU) 6-10 per HPF 0-5 A UA RBC (test code = RBCU) 6-10 #/HPF 0-5 A UA EPITHELIAL CELLS (test code = EPIU) FEW per HPF FEW UA BACTERIA (test code = BACU) FEW #/HPF NONE A UA HYALINE CAST (test code = HYALU) 11-20 #/LPF 0-5 A UA MUCUS (test code = MUCU) FEW #/LPF FEW Urine Source? Clean CatchURINALYSIS [id number] 22:58:00* Test Item Value Reference Range Interpretation Comments UA COLOR (test code = COLU) YELLOW YELLOW UA APPEARANCE (test code = APPU) Cloudy CLEAR A UA GLUCOSE DIPSTICK (test code = DGLUU) NEGATIVE mg/dL NEGATIVE UA BILIRUBIN DIPSTICK (test code = BILU) NEGATIVE mg/dL NEGATIVE UA KETONE DIPSTICK (test code = KETU) NEGATIVE mg/dL NEGATIVE UA SPECIFIC GRAVITY (test code = SGU) 1.020 1.001-1.035 UA BLOOD DIPSTICK (test code = SRINIVASAN) Negative mg/dL NEGATIVE UA PH DIPSTICK (test code = ANAY) 5.5 5.0-8.0 UA PROTEIN DIPSTICK (test code = PROU) 10 (Trace) mg/dL NEGATIVE A UA UROBILINIOGEN DIPSTICK (test code = URO) Normal mg/dL NEGATIVE UA NITRITE DIPSTICK (test code = RANDY) NEGATIVE NEGATIVE UA LEUKOCYTE ESTERASE W REFLEX (test code = LEUUR) NEGATIVE Kiya/uL NEGATIVE UA WBC (test code = WBCU) per HPF 0-5 UA RBC (test code = RBCU) per HPF 0-5 UA EPITHELIAL CELLS (test code = EPIU) per HPF Few UA BACTERIA (test code = BACU) per HPF NONE Urine Source? Clean Catch- XR CHEST 1 [id number] 22:50:00 FAX: Clary Galeana MD [phone] [place]: B St: REG Name: MARLEN RODGERS [facility] : [birth year] Age/S: 74/M [address] [facility] Unit #: [id number] Loc: [place]ST[place] [address] Phys: Clary Galeana MD Acct: [id number] Dis Date: Status: REG ER PHONE #: [phone] Exam Date: 03/31/20192234 FAX #: [phone] Reason: CODE SEPSIS EXAMS: CPT CODE: [id number] XR CHEST 1 V 70064 REASON FOR EXAM: CODE SEPSIS EXAM ORDER DATE: 03/31/2019 9:49 PM Ordering: Clary Galeana MD Attending:Clary Galeana MD Location: PROCEDURE: - XR CHEST 1 V COMPARISON: 01/14/2019 FINDINGS: Portable AP frontal view of the chest obtained at 10:29 PM shows patchy airspace opacity of the right base. There is no evidence of e ffusion. The heart size is within normal limits. Pulmonary vasculatures ar e unremarkable. IMPRESSION: Mild partial collapse of the right lung base at 225 0 Reported and signed by: Sundar Polk M.D. CC: Clary Galeana MD Technologist: MILADYS DOCKERY, RT(R) Trnscrd Date/Time/By: 03/31 (3047) : By: [email or web address] Orig Print D/T: S: 03/31/2019 (1132) PAGE 1 Signed Report PROCALCITONIN (PCT)2019-03-31 22:47:00* Test Item Value Reference Range Interpretation Comments PROCALCITONIN (PCT) (test code = PROCAL) < 0.05 ng/ml Concentration Interpretation (ng/mL) <0.51 Sepsis is [...] interpreted taking into account the patients history. DRUGS OF ABUSE SCREEN [id number] 22:44:00* Test Item Value Reference Range Interpretation Comments UA PH DIPSTICK (test code = ANAY) 6.0 5.0-8.0 URN COCAINE (test code = COCAURN) <300 ng/mL URN CANNABINOIDS (test code = CANNABURN) <50 ng/mL URN AMPHETAMINE (test code = AMPHETURN) <1000 ng/mL URN BARBITURATE (test code = BARBITURN) <200 ng/mL URN BENZODIAZEPINE (test code = BENZOURN) <200 ng/mL URN OPIATES (test code = OPIATURN) <300 ng/mL URN PHENCYCLIDINE (PCP) (test code = PHENCURN) <25 ng/ mL URN METHADONE (test code = METHAURN) <300 ng/mL [id number] 22:42:00* Test Item Value Reference Range Interpretation Comments ALCOHOL (test code = ALC) < 3 mg/dL 0.0-3.0 N -- INTERPRETIVE DATA NOTE: POSITIVE SCREENING RESULTS SHOULD BE CONSIDERED PRESUMPTIVE.WHEN COLLECTED FOR MEDICAL PURPOSES ONLY. SPECIMEN WILL NOTBE COLLECTED BY CHAIN OF CUSTODY.IF A CONFIRMATION OF POSITIVE RESULTS IS DESIRED, ACONFIRMATION TEST MUST BE REQUESTED BY THE PHYSICIAN AT ANADDITIONAL CHARGE TO THE PATIENT. BASIC METABOLIC [id number] 22:42:00* Test Item Value Reference Range Interpretation Comments SODIUM (test code = NA) 145 mmol/L 136-145 N POTASSIUM (test code = K) 4.4 mmol/L 3.5-5.1 N CHLORIDE (test code = CL) 111.0 mmol/L 98-107 H CARBON DIOXIDE (test code = CO2) 28.0 mmol/L 21-32 N ANION GAP (test code = GAP) 10.4 10-20 N GLUCOSE (test code = GLU) 107 mg/dL 74-106 H BLOOD UREA NITROGEN (test code = BUN) 13 mg/dL 7-18 N GLOMERULAR FILTRATION RATE (test code = GFR) > 60 mL/min >=60 Estimated GFR by using Modified MDRD formula.Chronic kidney disease is defined as either kidney damageor GFR <60 mL/min/1.73 m2 for >3 months. CREATININE (test code = CREAT) 0.80 mg/dL 0.7-1.3 N BUN/CREATININE RATIO (test code = BUN/CREA) 16.2 10-20 N CALCIUM (test code = CA) 8.5 mg/dL 8.5-10.1 N HEPATIC FUNCTION [id number] 22:42:00* Test Item Value Reference Range Interpretation Comments TOTAL PROTEIN (test code = PROT) 7.1 gram/dL 6.4-8.2 N ALBUMIN (test code = ALB) 3.1 g/dL 3.4-5.0 L GLOBULIN (test code = GLOB) 4.0 gram/dL 2.7-4.2 N ALBUMIN/GLOBULIN RATIO (test code = A/G) 0.8 0.75-1.50 N BILIRUBIN TOTAL (test code = BILT) 0.20 mg/dL 0.0-1.0 N BILIRUBIN DIRECT (test code = BILD) 0.06 mg/dL 0.0-0.20 N SGOT/AST (test code = AST) 73 IUnit/L 15-37 H SGPT/ALT (test code = ALT) 18 IUnit/L 12-78 N ALKALINE PHOSPHATASE TOTAL (test code = ALKP) 78 IUnit/L 45-117 N Note change in reference range due to change in reagent. [id number] 22:42:00* Test Item Value Reference Range Interpretation Comments LIPASE (test code = LIP) 55 U/L 73.0-393.0 L [id number] 22:42:00* Test Item Value Reference Range Interpretation Comments TROPONIN-I (test code = TROPI) 0.016 ng/mL 0-0.045 N LACTIC [id number] 22:39:00* Test Item Value Reference Range Interpretation Comments LACTIC ACID (test code = LACT) 1.3 mmol/L 0.4-1.9 N PROTHROMBIN [id number] 22:35:00* Test Item Value Reference Range Interpretation Comments PROTHROMBIN TIME PATIENT (test code = PTP) 11.6 seconds 9.0-14.0 N INTERNATIONAL NORMAL RATIO (test code = INR) 1.0 0.8-1.2 N The therapeutic range for oral anticoagulant therapy [...] (2.5-3.5) IS PATIENT ON ANTICOAGULANTS? NTHROMBOPLASTIN TIME [id number] 22:35:00* Test Item Value Reference Range Interpretation Comments THROMBOPLASTIN TIME PARTIAL (test code = PTT) 31.1 seconds 25.0-36. 5 N IS PATIENT ON ANTICOAGULANTS? NBASIC METABOLIC [id number] 22:32:00* Test Item Value Reference Range Interpretation Comments SODIUM (test code = NA) 145 mmol/L 136-145 N POTASSIUM (test code = K) 4.4 mmol/L 3.5-5.1 N CHLORIDE (test code = CL) 111.0 mmol/L 98-107 H CARBON DIOXIDE (test code = CO2) mmol/L 21-32 ANION GAP (test code = GAP) 10-20 GLUCOSE (test code = GLU) mg/dL 74-106 BLOOD UREA NITROGEN (test code = BUN) mg/dL 7-18 GLOMERULAR FILTRATION RATE (test code = GFR) mL/min >=60 CREATININE (test code = CREAT) mg/dL 0.7-1.3 BUN/CREATININE RATIO (test code = BUN/CREA) 10-20 CALCIUM (test code = CA) mg/dL 8.5-10.1 HEPATIC FUNCTION [id number] 22:32:00* Test Item Value Reference Range Interpretation Comments TOTAL PROTEIN (test code = PROT) gram/dL 6.4-8.2 ALBUMIN (test code = ALB) g/dL 3.4-5.0 GLOBULIN (test code = GLOB) gram/dL 2.7-4.2 ALBUMIN/GLOBULIN RATIO (test code = A/G) 0.75-1.50 BILIRUBIN TOTAL (test code = BILT) mg/dL 0.0-1.0 BILIRUBIN DIRECT (test code = BILD) mg/dL 0.0-0.20 SGOT/AST (test code = AST) IUnit/L 15-37 SGPT/ALT (test code = ALT) IUnit/L 12-78 ALKALINE PHOSPHATASE TOTAL (test code = ALKP) IUnit/L 45-117 [id number] 22:32:00* Test Item Value Reference Range Interpretation Comments LIPASE (test code = LIP) U/L 73.0-393.0 [id number] 22:32:00* Test Item Value Reference Range Interpretation Comments TROPONIN-I (test code = TROPI) ng/mL 0-0.045 CBC W/AUTO [id number] 22:28:00* Test Item Value Reference Range Interpretation Comments WHITE BLOOD CELL (test code = WBC) 9.9 K/mm3 4.5-12.5 N RED BLOOD CELL (test code = RBC) 3.83 mill/mm3 4.0-5.8 L HEMOGLOBIN (test code = HGB) 11.2 gram/dL 13.0-17.5 L HEMATOCRIT (test code = HCT) 35.5 % 42.0-52.0 L MEAN CELL VOLUME (test code = MCV) 92.7 fL 80-98 N MEAN CELL HGB (test code = MCH) 29.2 picogram 27.0-33.0 N MEAN CELL HGB CONCETRATION (test code = MCHC) 31.5 gram/dL 33.0-36. 0 L RED CELL DISTRIBUTION WIDTH (test code = RDW) 15.6 % 11.6-16. 2 N RED CELL DISTRIBUTION WIDTH SD (test code = RDW-SD) 53.3 fL 37 .0-51.0 H PLATELET COUNT (test code = PLT) 243 K/mm3 150-450 N MEAN PLATELET VOLUME (test code = MPV) 9.6 fL 6.7-11.0 N NEUTROPHIL % (test code = NT%) 69.7 % 39.0-69.0 H IMMATURE GRANULOCYTE % (test code = IG%) 0.3 % 0.0-5.0 N LYMPHOCYTE % (test code = LY%) 21.0 % 25.0-55.0 L MONOCYTE % (test code = MO%) 7.1 % 0.0-10.0 N EOSINOPHIL % (test code = EO%) 1.6 % 0.0-5.0 N BASOPHIL % (test code = BA%) 0.3 % 0.0-1.0 N NUCLEATED RBC % (test code = NRBC%) 0.0 % 0-0 N NEUTROPHIL # (test code = NT#) 6.90 K/mm3 1.8-7.7 N IMMATURE GRANULOCYTE # (test code = IG#) 0.03 x10 3/uL 0-0.03 N LYMPHOCYTE # (test code = LY#) 2.08 K/mm3 1.0-5.0 N MONOCYTE # (test code = MO#) 0.70 K/mm3 0-0.8 N EOSINOPHIL # (test code = EO#) 0.16 K/mm3 0.0-0.5 N BASOPHIL # (test code = BA#) 0.03 K/mm3 0.0-0.2 N NUCLEATED RBC # (test code = NRBC#) 0.00 K/mm3 0.0-0.1 N Urine [id number] 07:33:00* Test Item Value Reference Range Interpretation Comments Urine WBC (test code = 5821-4) 6-10 0-5 [facility] [id number] 07:33:00* Test Item Value Reference Range Interpretation Comments Urine RBC (test code = 52583-7) 0-5 0-5 [facility]villeU[facility] [id number] 07:33:00* Test Item Value Reference Range Interpretation Comments Urine Bacteria (test code = 07154-0) RARE NONE [facility]villeU[facility] Epithelial [id number] 07:33:00 * Test Item Value Reference Range Interpretation Comments Urine Epithelial Cells (test code = 75611-6) FEW NONE [facility]villeU[facility] [id number] 07:23:00* Test Item Value Reference Range Interpretation Comments Urine Color (test code = 5778-6) YELLOW YELLOW [facility]villeU[facility] [id number] 07:23:00* Test Item Value Reference Range Interpretation Comments Urine Clarity (test code = 03636-2) CLEAR CLEAR [facility] Specific [id number] 07:23:00 * Test Item Value Reference Range Interpretation Comments Urine Specific Mcintosh (test code = 5811-5) 1.015 1.010-1.02 5 [facility]villeUrine [id number] 07:23:00* Test Item Value Reference Range Interpretation Comments Urine pH (test code = 70129-2) 6 5-7 [facility] Leukocyte [id number] 07:23:00* Test Item Value Reference Range Interpretation Comments Urine Leukocyte Esterase (test code = 84482-0) NEGATIVE NEGATIV E [facility] [id number] 07:23:00* Test Item Value Reference Range Interpretation Comments Urine Nitrite (test code = 59252-4) NEGATIVE NEGATIVE [facility] [id number] 07:23:00* Test Item Value Reference Range Interpretation Comments Urine Protein (test code = 62931-9) NEGATIVE NEGATIVE [facility] Glucose (UA)2019-03-09 07:23:00* Test Item Value Reference Range Interpretation Comments Urine Glucose (UA) (test code = 40792-9) NEGATIVE NEGATIVE [facility] [id number] 07:23:00* Test Item Value Reference Range Interpretation Comments Urine Ketones (test code = 24672-7) NEGATIVE NEGATIVE [facility] [id number] 07:23:00* Test Item Value Reference Range Interpretation Comments Urine Urobilinogen (test code = 66568-5) 0.2 0.2-1 [facility] [id number] 07:23:00* Test Item Value Reference Range Interpretation Comments Urine Bilirubin (test code = 1977-8) NEGATIVE NEGATIVE [facility]ville[facility] [id number] 07:23:00* Test Item Value Reference Range Interpretation Comments Urine Blood (test code = 31639-2) NEGATIVE NEGATIVE [facility] StephenvilleCreatine Kinase [id number] 06:43:00* Test Item Value Reference Range Interpretation Comments Creatine Kinase MB (test code = 20509-0) 3.30 0-5.0 [facility] StephenvilleTroponin [id number] 06:43:00* Test Item Value Reference Range Interpretation Comments Troponin I (test code = KLJ2817) 0.049 0-0.300 [facility]villeCreatine [id number] 06:38:00* Test Item Value Reference Range Interpretation Comments Creatine Kinase (test code = 2157-6) 45 30-[address] [facility] [id number] 06:09:00* Test Item Value Reference Range Interpretation Comments Sodium Level (test code = 2951-2) 136 136-145 [facility]villePotassium Lsbst3426-00-83 06:09:00* Test Item Value Reference Range Interpretation Comments Potassium Level (test code = 2823-3) 4.1 3.5-5.1 [facility] StephenvilleChloride [id number] 06:09:00* Test Item Value Reference Range Interpretation Comments Chloride Level (test code = 2075-0) 100 98-107 [facility] StephenvilleCarbon Dioxide [id number] 06:09:00* Test Item Value Reference Range Interpretation Comments Carbon Dioxide Level (test code = 2028-9) 29 22-29 [facility] StephenvilleAnion [id number] 06:09:00* Test Item Value Reference Range Interpretation Comments Anion Gap (test code = 37447-1) 11.1 8-16 [facility] StephenvilleBlood Urea [id number] 06:09:00* Test Item Value Reference Range Interpretation Comments Blood Urea Nitrogen (test code = 3094-0) 12 7-26 [facility] StephenvilleCreatinine2019-11-07 06:09:00* Test Item Value Reference Range Interpretation Comments Creatinine (test code = 2160-0) 0.71 0.72-1.25 [facility]villeBUN/Creatinine [id number] 06:09:00* Test Item Value Reference Range Interpretation Comments BUN/Creatinine Ratio (test code = 3097-3) 17 6-25 [facility] StephenvilleEstimat Glomerular Filtration Rate 2019-03-09 06:09:00* Test Item Value Reference Range Interpretation Comments Estimat Glomerular Filtration Rate (test code = 476202154) > 60 >60 Ranges were taken from the National Kidney Disease Education Program and the [facility] [employer] literature.Reference ranges:60 or greater: Yoibpg45-90 ( for 3 consecutive months): Chronic kidney disease 15 or less: Kidney failureTexas Health Harris Methodist Hospital StephenvilleGlucose Owrdf7395-65-92 06:09:00* Test Item Value Reference Range Interpretation Comments Glucose Level (test code = WGN9863) 104 74-118 [facility] StephenvilleCalcium Nbqit3873-18-35 06:09:00* Test Item Value Reference Range Interpretation Comments Calcium Level (test code = 63323-4) 9.1 8.4-10.2 [facility] StephenvilleTotal Zszuwsqsi7164-63-80 06:09:00* Test Item Value Reference Range Interpretation Comments Total Bilirubin (test code = 1975-2) 0.2 0.2-1.2 [facility] StephenvilleAspartate Amino Transf (AST/SGOT) 2019-03-09 06:09:00* Test Item Value Reference Range Interpretation Comments Aspartate Amino Transf (AST/SGOT) (test code = Aspartate Amino Transf (AST/SGOT)) 18 5-34 [facility] StephenvilleAlanine Aminotransferase (ALT/SGPT) 2019-03-09 06:09:00* Test Item Value Reference Range Interpretation Comments Alanine Aminotransferase (ALT/SGPT) (test code = 1742-6) 9 0-55 [facility] StephenvilleTotal [id number] 06:09:00* Test Item Value Reference Range Interpretation Comments Total Protein (test code = 2885-2) 6.5 6.5-8.1 [facility] StephenvilleAlbumin2019-11-07 06:09:00* Test Item Value Reference Range Interpretation Comments Albumin (test code = 1751-7) 3.2 3.5-5.0 [facility] StephenvilleGlobulin2019-11-07 06:09:00* Test Item Value Reference Range Interpretation Comments Globulin (test code = 27785-5) 3.3 2.3-3.5 [facility] StephenvilleAlbumin/Globulin [id number] 06:09:00 * Test Item Value Reference Range Interpretation Comments Albumin/Globulin Ratio (test code = 1759-0) 1.0 0.8-2.0 [facility] StephenvilleAlkaline Vsbmfyrjqiu7563-84-93 06:09:00* Test Item Value Reference Range Interpretation Comments Alkaline Phosphatase (test code = 6768-6) 68 40-150 [facility] StephenvilleWhite Blood Lgzrw4407-92-43 05:55:00* Test Item Value Reference Range Interpretation Comments White Blood Count (test code = 6690-2) 7.66 4.8-10.8 [facility] StephenvilleRed Blood [id number] 05:55:00* Test Item Value Reference Range Interpretation Comments Red Blood Count (test code = 789-8) 3.73 4.3-5.7 [facility] StephenvilleHemoglobin2019-11-07 05:55:00* Test Item Value Reference Range Interpretation Comments Hemoglobin (test code = 78776-2) 10.8 14.0-18.0 [facility] StephenvilleHematocrit2019-11-07 05:55:00* Test Item Value Reference Range Interpretation Comments Hematocrit (test code = 4544-3) 32.8 38.2-49.6 [facility] StephenvilleMean Corpuscular Vpdwtd9385-03-40 05:55:00* Test Item Value Reference Range Interpretation Comments Mean Corpuscular Volume (test code = 787-2) 87.9 81-99 [facility] StephenvilleMean Corpuscular Lsqgqsdfet2979-49-86 05:55:00* Test Item Value Reference Range Interpretation Comments Mean Corpuscular Hemoglobin (test code = 785-6) 29.0 28-32 [facility] StephenvilleMean Corpuscular Hemoglobin Concent 2019-03-09 05:55:00* Test Item Value Reference Range Interpretation Comments Mean Corpuscular Hemoglobin Concent (test code = 786-4) 32.9 31-35 [facility] StephenvilleRed Cell Distribution [id number] 05:55:00* Test Item Value Reference Range Interpretation Comments Red Cell Distribution Width (test code = 74678-8) 15.0 11.7 -14.4 [facility] StephenvillePlatelet Iwznv3072-84-33 05:55:00* Test Item Value Reference Range Interpretation Comments Platelet Count (test code = 777-3) 227 140-360 [facility] StephenvilleNeutrophils (%) (Auto)2019-03-09 05:55:00 * Test Item Value Reference Range Interpretation Comments Neutrophils (%) (Auto) (test code = 19053-7) 58.9 38.7-80.0 [facility] [facility]ymph[facility] (Auto)2019-03-09 05:55:00 * Test Item Value Reference Range Interpretation Comments Lymphocytes (%) (Auto) (test code = 736-9) 29.2 18.0-39.1 [facility] (Auto)2019-03-09 05:55:00* Test Item Value Reference Range Interpretation Comments Monocytes (%) (Auto) (test code = 5905-5) 7.7 4.4-11.3 [facility]Eosinophils (%) (Auto)2019-03-09 05:55:00 * Test Item Value Reference Range Interpretation Comments Eosinophils (%) (Auto) (test code = 713-8) 3.4 0.0-6.0 [facility] (%) (Auto)2019-03-09 05:55:00* Test Item Value Reference Range Interpretation Comments Basophils (%) (Auto) (test code = 706-2) 0.5 0.0-1.0 [facility]villeIM GRANULOCYTES %2019-03-09 05:55:00* Test Item Value Reference Range Interpretation Comments IM GRANULOCYTES % (test code = IM GRANULOCYTES %) 0.3 0.0- 1.0 [facility]villeNeutrophils # (Auto)2019-03-09 05:55:00* Test Item Value Reference Range Interpretation Comments Neutrophils # (Auto) (test code = 751-8) 4.5 2.1-6.9 [facility]villeLymphocytes # (Auto)2019-03-09 05:55:00* Test Item Value Reference Range Interpretation Comments Lymphocytes # (Auto) (test code = 52610-2) 2.2 1.0-3.2 [facility]ocytes # (Auto)2019-03-09 05:55:00* Test Item Value Reference Range Interpretation Comments Monocytes # (Auto) (test code = 742-7) 0.6 0.2-0.8 [facility]Eosinophils # (Auto)2019-03-09 05:55:00* Test Item Value Reference Range Interpretation Comments Eosinophils # (Auto) (test code = 711-2) 0.3 0.0-0.4 [facility]Basophils # (Auto)2019-03-09 05:55:00* Test Item Value Reference Range Interpretation Comments Basophils # (Auto) (test code = 704-7) 0.0 0.0-0.1 [facility]villeAbsolute Immature Granulocyte (auto 2019-03-09 05:55:00* Test Item Value Reference Range Interpretation Comments Absolute Immature Granulocyte (auto (troy t code = Absolute Immature Granulocyte (auto) 0.02 0-0.1 [facility]villeBLOOD [id number] 19:00:00* Test Item Value Reference Range Interpretation Comments CULTURE (BEAKER) (test code = 1095) No growth in 5 days BLOOD [id number] 19:00:00* Test Item Value Reference Range Interpretation Comments CULTURE (BEAKER) (test code = 1095) No growth in 5 days Bedside [id number] 17:29:00* Test Item Value Reference Range Interpretation Comments Bedside Glucose (test code = 27982-5) 220 70-120 Meter ID: [id number] [facility] [id number] 15:12:00 [facility] [address] [address] Patient Name: MARLEN NOLAND MR #: [id number] : 1945 Age/Sex: 73/M Req #: [id number] Adm Physician: SUZIE LEAVITT MD Ordered by: AMIRAH LECHUGA MD Report #: [id number] Location: [facility] Room/Bed: [place] [address] Procedure: [id number] DX/SP LUMBAR, COMPLETE MIN 4VW Exam Date: 03/08/19 Exam Time: 1440 REPORT STATUS: Sig martina EXAMINATION: SP LUMBAR, COMPLETE MIN 4VW INDICATION: Trauma COMPARISON: None FINDINGS: AP, lateral, and oblique images of t he lumbar spine demonstrate no acute compression fracture. Vertebral body heig hts are essentially maintained. Postoperative findings of posterior decompress ion and lumbosacral fusion at L4-S1. Multilevel degenerative changes of the vi sualized spine. Nonobstructive bowel gas pattern. No free air. IMPRESSION : Postoperative and degenerative changes of the lumbar spine. No acute osseou s injury. Signed by: Lupis Aguilar MD on 03/08/2019 3:14 PM Dictated By: LUPIS AGUILAR MD 4208 Tra nscribed By: CLARA on 03/08/19 8563 COPY TO: AMIRAH LECHUGA MD PELVIS AP 1-2 [id number] 15:11:00 [place] [address] Patient Name: MARLEN NOLAND MR #: [id number] : 1945 Age/Sex: 73/M Req #: [id number] Adm Physician: SUZIE LEAVITT MD Ordered by: AMIRAH LECHUGA MD Report #: [id number] Location: [facility] Room/Bed: [place] [address] Procedure: [id number] DX/PELVIS AP 1-2 VIEWS Exam Date: 03/08/19 Exam Ti me: 1440 REPORT STATUS: Signed E XAMINATION: PELVIS AP 1-2 VIEWS INDICATION: Trauma COMPARISON: No ne FINDINGS: AP view of the pelvis demonstrates no acute fracture or dislocation. Alignment is anatomic. Postoperative findings of lumbosacral spinal fusion with associated lower lumbar spine degenerative changes. Mild de generative changes of both hip joints. Diffuse atherosclerotic arterial calcif ications. Phleboliths in the pelvis. Nonobstructive bowel gas pattern. IM PRESSION: No acute osseous injury. Postoperative and degenerative findin gs of the lower lumbar spine. Mild degenerative changes of both hip joints. Signed by: Lupis Aguilar MD on 03/08/2019 3:12 PM Dictated By: LUPIS AGUILAR MD 11 Transcribed By: Jose PRICE on 03/08/191511 COPY TO: AMIRAH LECHUGA MD CT BRAIN WO 2019-03-08 14:10:00 [place] [address] Patient Name: MARLEN NOLAND MR #: [id number] : 1945 Age/Sex: 73/M Req #: [id number] [facility] Physician: Ordered by: AMIRAH LECHUGA MD Report #: [id number] Location: Room/Bed: Procedure: [id number] CT/CT BRAIN WO Exam Date: 03/08/19 Exam Time: 1320 REPORT STATUS: Signed Examination: CT head without contrast Clinical Indication: Syncope. Technique: Transaxial noncontrast images from the skull base through the vertex were obtained. S agittal and coronal reformatted images were done. Dose modulation, iterative r econstruction, and/or weight based adjustment of the mA/kV was utilized to red uce the radiation dose to as low as reasonably achievable. Comparison: None . Findings: Scalp: No abnormalities. Bones: Intact. No fractures. N o blastic or lytic lesions. Brain sulci: Appropriate for patient's age. Ventricles: Normal in size and configuration. No hydrocephalus. . Extra- axial space: No abnormalities. Parenchyma: There are confluent areas o f low-attenuation within subcortical and periventricular white matter, nonspec ific, but could represent microvascular ischemic disease. No masses, hemorrh age, or acute or chronic cortical based vascular insults. Suprasellar regio n: No abnormalities. Craniocervical junction: The foramen magnum is patent. N o Chiari one malformation. Incidental findings: Atherosclerotic calcif ication of the cavernous and supraclinoid internal carotid and V4 segments of the bilateral vertebral arteries. Impression: 1. No acute intracrani al finding. 2. Mild chronic microvascular ischemic change. Signed by: Dr. Margie Regalado M.D. on 03/08/2019 2:11 PM Dictated By: MARGIE DURAND MD 10 COPY TO: JERED LECHUGA MD B-Type Natriuretic [id number] 13:35:00* Test Item Value Reference Range Interpretation Comments B-Type Natriuretic Peptide (test code = 30974-0) 17.7 0-100 [facility]villeProthrombin [id number] 13:34:00* Test Item Value Reference Range Interpretation Comments Prothrombin Time (test code = 5902-2) 12.1 11.9-14.5 [facility]villeProthromb Time International Ratio 2019-03-08 13:34:00* Test Item Value Reference Range Interpretation Comments Prothromb Time International Ratio (test code = 6301-6) 0.85 Oral Anticoagulant Therapy INR Values:1. Low Intensity Therapy 1.5 - 2.02 . Moderate Intensity Therapy 2.0 - 3.03. High Intensity Therapy(1) 2.5 - 3. 54. High Intensity Therapy(2) 3.0 - 4.05. Panic Value INR > 5.0 [facility]villeActivated Partial Thromboplast Time 2019-03-08 13:34:00* Test Item Value Reference Range Interpretation Comments Activated Partial Thromboplast Time (test code = 68873-9) 20.1 23.8-35.5 [facility]villeCHEST SINGLE (PORTABLE)2019-03-08 13:03:00 [place] [address] Patient Name: MARLEN NOLAND MR #: [id number] : 1945 Age/Sex: 73/M Req #: [id number] [facility] Physician: Ordered by: AMIRAH LECHUGA MD Report #: [id number] Location: Room/Bed: Procedure: [id number] DX/CHEST SINGLE (PORTABLE) Exam Date: 03/08/19 Exam Time: 1230 REPORT STATUS: Signed EXAMINATION: CHEST SINGLE (PORTABLE) INDICATION: Syncope COMPAR RAE: None FINDINGS: LINES/TUBES:EKG leads overlie the chest. LUNGS:The right lung is moderately inflated. There are postoperative findings of prior wedge resection at the right upper lung. Patchy opacity at the right lung base. The left lung is well inflated. No focal consolidation or pulmonary edema. PLEURA:No pleural effusion or pneumothorax. MEDIASTINUM:The cardiomediastinal silhouette appears normal in size and shape. Atherosclerotic calcifications of the thoracic aorta. Postoperative findings of prior CABG. BONES/SOFT TISSUES:No acute osseous injury. Sternotomy wires in place. ABDOMEN:No free air under the diaphragm. IMPRESSION: Patchy opacity a t the right lung base, likely subsegmental atelectasis. Signed by: Lupis Aguilar MD on 03/08/2019 1:10 PM Dictated By: LUPIS AGUILAR MD Electronically Si gned By: LUPIS AGUILAR MD on 03/08/19 1310 Transcribed By: CLARA on 03/08/19 131 0 COPY TO: AMIRAH LECHUGA MD POCT-GLUCOSE [id number] 18:54:00* Test Item Value Reference Range Interpretation Comments POC-GLUCOSE METER (BEAKER) (test code = 1538) 140 mg/dL 70-110 H : TESTED AT [address], [address]: Entertainment Musician/Manager Legal ID = [id number] for Edilson Early BASIC METABOLIC [id number] 08:07:00* Test Item Value Reference Range Interpretation Comments SODIUM (BEAKER) (test code = 381) 135 meq/L 136-145 L POTASSIUM (BEAKER) (test code = 379) 4.6 meq/L 3.5-5.1 CHLORIDE (BEAKER) (test code = 382) 101 meq/L 98-107 CO2 (BEAKER) (test code = 355) 27 meq/L 22-29 BLOOD UREA NITROGEN (BEAKER) (test code = 354) 11 mg/dL 7-21 CREATININE (BEAKER) (test code = 358) 0.71 mg/dL 0.57-1.25 GLUCOSE RANDOM (BEAKER) (test code = 652) 120 mg/dL 70-105 H CALCIUM (BEAKER) (test code = 697) 9.0 mg/dL 8.4-10.2 EGFR (BEAKER) (test code = 1092) 109 mL/min/1.73 sq m ESTIMATED GFR IS NOT ACCURATE CREATININE CLEARANCE IN PREDICTING GLOMERULAR FILTRATION RATE. ESTIMATED GFR IS NOT APPLICABLE FOR DIALYSIS PATIENTS. CBC W/PLT COUNT & AUTO [id number] 06:21:00* Test Item Value Reference Range Interpretation Comments WHITE BLOOD CELL COUNT (BEAKER) (test code = 775) 6.5 K/ L 3.5- 10.5 RED BLOOD CELL COUNT (BEAKER) (test code = 761) 3.61 M/ L 4.63-6 .08 L HEMOGLOBIN (BEAKER) (test code = 410) 10.4 GM/DL 13.7-17.5 L HEMATOCRIT (BEAKER) (test code = 411) 32.2 % 40.1-51.0 L MEAN CORPUSCULAR VOLUME (BEAKER) (test code = 753) 89.2 fL 79. 0-92.2 MEAN CORPUSCULAR HEMOGLOBIN (BEAKER) (test code = 751) 28.8 pg 25.7-32.2 MEAN CORPUSCULAR HEMOGLOBIN CONC (BEAKER) (test code = 752) 32.3 GM/DL 32.3-36.5 RED CELL DISTRIBUTION WIDTH (BEAKER) (test code = 412) 15.1 % 11.6-14.4 H PLATELET COUNT (BEAKER) (test code = 756) 229 K/CU MM 150-450 MEAN PLATELET VOLUME (BEAKER) (test code = 754) 10.0 fL 9.4-12 .4 NUCLEATED RED BLOOD CELLS (BEAKER) (test code = 413) 0 /100 WBC 0 -0 NEUTROPHILS RELATIVE PERCENT (BEAKER) (test code = 429) 50 % LYMPHOCYTES RELATIVE PERCENT (BEAKER) (test code = 430) 36 % MONOCYTES RELATIVE PERCENT (BEAKER) (test code = 431) 8 % EOSINOPHILS RELATIVE PERCENT (BEAKER) (test code = 432) 5 % BASOPHILS RELATIVE PERCENT (BEAKER) (test code = 437) 1 % NEUTROPHILS ABSOLUTE COUNT (BEAKER) (test code = 670) 3.29 K/ L 1.78-5.38 LYMPHOCYTES ABSOLUTE COUNT (BEAKER) (test code = 414) 2.34 K/ L 1.32-3.57 MONOCYTES ABSOLUTE COUNT (BEAKER) (test code = 415) 0.49 K/ L 0. 30-0.82 EOSINOPHILS ABSOLUTE COUNT (BEAKER) (test code = 416) 0.34 K/ L 0.04-0.54 BASOPHILS ABSOLUTE COUNT (BEAKER) (test code = 417) 0.04 K/ L 0. 01-0.08 IMMATURE GRANULOCYTES-RELATIVE PERCENT (BEAKER) (test code = 2801) 1 % 0-1 POCT-GLUCOSE [id number] 21:22:00* Test Item Value Reference Range Interpretation Comments POC-GLUCOSE METER (BEAKER) (test code = 1538) 164 mg/dL 70-110 H : TESTED AT [address], [address]: Entertainment Musician/Manager Legal ID = [id number] for DESTINI RFIAS POCT-GLUCOSE [id number] 18:14:00* Test Item Value Reference Range Interpretation Comments POC-GLUCOSE METER (BEAKER) (test code = 1538) 127 mg/dL 70-110 H : TESTED AT [address], [address]: Entertainment Musician/Manager Legal ID = [id number] for STACEY MCCRACKEN POCT-GLUCOSE [id number] 13:00:00* Test Item Value Reference Range Interpretation Comments POC-GLUCOSE METER (BEAKER) (test code = 1538) 93 mg/dL 70-110 : TESTED AT [address], [address]: Entertainment Musician/Manager Legal ID = [id number] for Edilson Early POCT-GLUCOSE [id number] 08:04:00* Test Item Value Reference Range Interpretation Comments POC-GLUCOSE METER (BEAKER) (test code = 1538) 122 mg/dL 70-110 H : TESTED AT [address], [address]: Entertainment Musician/Manager Legal ID = [id number] for Edilson Early HEPATIC FUNCTION [id number] 03:04:00* Test Item Value Reference Range Interpretation Comments TOTAL PROTEIN (BEAKER) (test code = 770) 7.0 gm/dL 6.0-8.3 ALBUMIN (BEAKER) (test code = 1145) 3.7 g/dL 3.5-5.0 BILIRUBIN TOTAL (BEAKER) (test code = 377) 0.2 mg/dL 0.2-1.2 BILIRUBIN DIRECT (BEAKER) (test code = 706) 0.1 mg/dL 0.1-0.5 ALKALINE PHOSPHATASE (BEAKER) (test code = 346) 79 U/L 40-150 AST (SGOT) (BEAKER) (test code = 353) 11 U/L 5-34 ALT (SGPT) (BEAKER) (test code = 347) 6 U/L 6-55 BASIC METABOLIC [id number] 03:04:00* Test Item Value Reference Range Interpretation Comments SODIUM (BEAKER) (test code = 381) 138 meq/L 136-145 POTASSIUM (BEAKER) (test code = 379) 4.1 meq/L 3.5-5.1 CHLORIDE (BEAKER) (test code = 382) 103 meq/L 98-107 CO2 (BEAKER) (test code = 355) 27 meq/L 22-29 BLOOD UREA NITROGEN (BEAKER) (test code = 354) 10 mg/dL 7-21 CREATININE (BEAKER) (test code = 358) 0.71 mg/dL 0.57-1.25 GLUCOSE RANDOM (BEAKER) (test code = 652) 107 mg/dL 70-105 H CALCIUM (BEAKER) (test code = 697) 8.9 mg/dL 8.4-10.2 EGFR (BEAKER) (test code = 1092) 109 mL/min/1.73 sq m ESTIMATED GFR IS NOT ACCURATE CREATININE CLEARANCE IN PREDICTING GLOMERULAR FILTRATION RATE. ESTIMATED GFR IS NOT APPLICABLE FOR DIALYSIS PATIENTS. CBC W/PLT COUNT & AUTO [id number] 02:46:00* Test Item Value Reference Range Interpretation Comments WHITE BLOOD CELL COUNT (BEAKER) (test code = 775) 7.6 K/ L 3.5- 10.5 RED BLOOD CELL COUNT (BEAKER) (test code = 761) 3.86 M/ L 4.63-6 .08 L HEMOGLOBIN (BEAKER) (test code = 410) 11.1 GM/DL 13.7-17.5 L HEMATOCRIT (BEAKER) (test code = 411) 34.1 % 40.1-51.0 L MEAN CORPUSCULAR VOLUME (BEAKER) (test code = 753) 88.3 fL 79. 0-92.2 MEAN CORPUSCULAR HEMOGLOBIN (BEAKER) (test code = 751) 28.8 pg 25.7-32.2 MEAN CORPUSCULAR HEMOGLOBIN CONC (BEAKER) (test code = 752) 32.6 GM/DL 32.3-36.5 RED CELL DISTRIBUTION WIDTH (BEAKER) (test code = 412) 15.3 % 11.6-14.4 H PLATELET COUNT (BEAKER) (test code = 756) 253 K/CU MM 150-450 MEAN PLATELET VOLUME (BEAKER) (test code = 754) 9.1 fL 9.4-12 .4 L NUCLEATED RED BLOOD CELLS (BEAKER) (test code = 413) 0 /100 WBC 0 -0 NEUTROPHILS RELATIVE PERCENT (BEAKER) (test code = 429) 57 % LYMPHOCYTES RELATIVE PERCENT (BEAKER) (test code = 430) 31 % MONOCYTES RELATIVE PERCENT (BEAKER) (test code = 431) 7 % EOSINOPHILS RELATIVE PERCENT (BEAKER) (test code = 432) 5 % BASOPHILS RELATIVE PERCENT (BEAKER) (test code = 437) 0 % NEUTROPHILS ABSOLUTE COUNT (BEAKER) (test code = 670) 4.33 K/ L 1.78-5.38 LYMPHOCYTES ABSOLUTE COUNT (BEAKER) (test code = 414) 2.36 K/ L 1.32-3.57 MONOCYTES ABSOLUTE COUNT (BEAKER) (test code = 415) 0.49 K/ L 0. 30-0.82 EOSINOPHILS ABSOLUTE COUNT (BEAKER) (test code = 416) 0.34 K/ L 0.04-0.54 BASOPHILS ABSOLUTE COUNT (BEAKER) (test code = 417) 0.03 K/ L 0. 01-0.08 IMMATURE GRANULOCYTES-RELATIVE PERCENT (BEAKER) (test code = 2801) 0 % 0-1 POCT-GLUCOSE [id number] 21:42:00* Test Item Value Reference Range Interpretation Comments POC-GLUCOSE METER (BEAKER) (test code = 1538) 193 mg/dL 70-110 H : TESTED AT [address], [address]: Entertainment Musician/Manager Legal ID = [id number] for DESTINI FRIAS POCT-GLUCOSE [id number] 17:35:00* Test Item Value Reference Range Interpretation Comments POC-GLUCOSE METER (BEAKER) (test code = 1538) 70 mg/dL 70-110 : TESTED AT [facility] [address] [facility], [address]: Entertainment Musician/Manager Legal ID = [id number] for Edilson Early RAPID DRUG SCREEN, [id number] 15:07:00* Test Item Value Reference Range Interpretation Comments BARBITURATE URINE (BEAKER) (test code = 725) Negative Negative BENZODIAZEPINE SCREEN URINE (BEAKER) (test code = 726) Positive Negative A COCAINE (METAB.) SCREEN (BEAKER) (test code = 1164) Negative Ne gative METHADONE SCREEN (BEAKER) (test code = 1436) Negative Negative OPIATE SCREEN URINE (BEAKER) (test code = 734) Positive Negativ e A CANNABINOID SCREEN URINE (BEAKER) (test code = 727) Negative Ne gative AMPH/METHAMPH SCREEN (BEAKER) (test code = 1438) Negative Negat marleen PHENCYCLIDINE SCREEN URINE (BEAKER) (test code = 608) Negative Negative DRUG CUTOFF CONC.Cocaine 300 ng/mL Cannabinoid 50 ng/mLBenzodiazepine 200 ng/mLBarbiturate 200 ng/mLPh encyclidine 25 ng/mLOpiate 300 ng/mLMethadone 300 ng/mLAmphetamine/ 1000 ng/mL MethamphetamineThis assay provides an unconfirmed qualitative test result for the clinical management of patients in emergency situations. Chain of custody not maintained. Some pldo-wyw-jzvwpvh me dications, as well as adulterants, may cause inaccurate results. Clinical correl ation should be applied. A more comprehensive drug screen or confirmation of a d etected drug may be performed upon request.URINALYSIS W/ REFLEX URINE CULTURE 2019-03-03 14:46:00* Test Item Value Reference Range Interpretation Comments COLOR (BEAKER) (test code = 470) Light Yellow CLARITY (BEAKER) (test code = 469) Hazy SPECIFIC GRAVITY UA (BEAKER) (test code = 468) 1.010 1.001-1 .035 PH UA (BEAKER) (test code = 467) 5.5 5.0-8.0 PROTEIN UA (BEAKER) (test code = 464) Negative Negative GLUCOSE UA (BEAKER) (test code = 365) Negative Negative KETONES UA (BEAKER) (test code = 371) Negative Negative BILIRUBIN UA (BEAKER) (test code = 462) Negative Negative BLOOD UA (BEAKER) (test code = 461) Negative Negative NITRITE UA (BEAKER) (test code = 465) Positive Negative A LEUKOCYTE ESTERASE UA (BEAKER) (test code = 466) Large Negat marleen A UROBILINOGEN UA (BEAKER) (test code = 463) 0.2 mg/dL 0.2-1.0 RBC UA (BEAKER) (test code = 519) 4 /HPF WBC UA (BEAKER) (test code = 520) 65 /HPF SOURCE(BEAKER) (test code = 2795) TROPONIN [id number] 13:23:00* Test Item Value Reference Range Interpretation Comments TROPONIN I (BEAKER) (test code = 397) < ng/mL 0.00-0.03 Troponin I (TnI) levels [...] acidosis, acute neurological disease, and per sistent tachyarrhythmia.[id number] 13:16:00* Test Item Value Reference Range Interpretation Comments MAGNESIUM (BEAKER) (test code = 627) 1.4 mg/dL 1.6-2.6 L BASIC METABOLIC [id number] 13:16:00* Test Item Value Reference Range Interpretation Comments SODIUM (BEAKER) (test code = 381) 138 meq/L 136-145 POTASSIUM (BEAKER) (test code = 379) 4.5 meq/L 3.5-5.1 CHLORIDE (BEAKER) (test code = 382) 104 meq/L 98-107 CO2 (BEAKER) (test code = 355) 30 meq/L 22-29 H BLOOD UREA NITROGEN (BEAKER) (test code = 354) 11 mg/dL 7-21 CREATININE (BEAKER) (test code = 358) 0.80 mg/dL 0.57-1.25 GLUCOSE RANDOM (BEAKER) (test code = 652) 117 mg/dL 70-105 H CALCIUM (JAEL) (test code = 697) 9.3 mg/dL 8.4-10.2 EGFR (JAEL) (test code = 1092) 95 mL/min/1.73 sq m ESTIMATED GFR IS NOT ACCURATE CREATININE CLEARANCE IN PREDICTING GLOMERULAR FILTRATION RATE. ESTIMATED GFR IS NOT APPLICABLE FOR DIALYSIS PATIENTS. CT, BRAIN, WITHOUT [id number] 12:54:00Reason for exam:->headacheWhat is the patient's sedation [...] is recommended for further characterization. Signed: Cindi Bryan Verified Date/Time : 03/03/2019 12:54:53 Electronically signed by: MD yuliet IVORY 03/03/2019 12:54 PM B-TYPE NATRIURETIC FACTOR (BNP)2019-03-03 12:48:00* Test Item Value Reference Range Interpretation Comments B-TYPE NATRIURETIC PEPTIDE (JAEL) (test code = 700) 60 pg/mL 0-100 RAD, CHEST, 1 VIEW, NON [id number] 12:37:00Reason for exam:->GENERALIZED WEAKNESS, NOT ASSOCIATED WITH EXTREMITIESFINAL REPORT INDICATION: GENERALIZED WEAKNESS, NOT ASSOCIATED WITH EXTREMITIES COMPARISON: June 22, 2018 TECHNIQUE: Single frontal view of the chest. FINDINGS: Lungs and pleura: Minimal bilateral subsegmental atelectasis No effusion.Heart and mediastinum: Normal heart size. Unremarkable mediastinal contours.Osseous structures: No acute abnormality.Other: None. IMPRESSION: No acute intrathoracic abnormality. Signed: Blanca Medinaeport Verified Date/Time: 03/03/2019 12:37:45 Reading Location: [facility] Radiology Reading Room -LACTIC ACID, [id number] 12:23:00* Test Item Value Reference Range Interpretation Comments POC-LACTIC ACID, VENOUS (BEAKER) (test code = 2805) 1.7 mmol/L 0. 9-1.7 TESTED AT [facility] [address] [facility] [address] CBC W/PLT COUNT & AUTO [id number] 12:21:00* Test Item Value Reference Range Interpretation Comments WHITE BLOOD CELL COUNT (BEAKER) (test code = 775) 10.9 K/ L 3.5- 10.5 H RED BLOOD CELL COUNT (BEAKER) (test code = 761) 3.86 M/ L 4.63-6 .08 L HEMOGLOBIN (BEAKER) (test code = 410) 11.2 GM/DL 13.7-17.5 L HEMATOCRIT (BEAKER) (test code = 411) 34.5 % 40.1-51.0 L MEAN CORPUSCULAR VOLUME (BEAKER) (test code = 753) 89.4 fL 79. 0-92.2 MEAN CORPUSCULAR HEMOGLOBIN (BEAKER) (test code = 751) 29.0 pg 25.7-32.2 MEAN CORPUSCULAR HEMOGLOBIN CONC (BEAKER) (test code = 752) 32.5 GM/DL 32.3-36.5 RED CELL DISTRIBUTION WIDTH (BEAKER) (test code = 412) 15.5 % 11.6-14.4 H PLATELET COUNT (BEAKER) (test code = 756) 270 K/CU MM 150-450 MEAN PLATELET VOLUME (BEAKER) (test code = 754) 9.4 fL 9.4-12 .4 NUCLEATED RED BLOOD CELLS (BEAKER) (test code = 413) 0 /100 WBC 0 -0 NEUTROPHILS RELATIVE PERCENT (BEAKER) (test code = 429) 74 % LYMPHOCYTES RELATIVE PERCENT (BEAKER) (test code = 430) 18 % MONOCYTES RELATIVE PERCENT (BEAKER) (test code = 431) 5 % EOSINOPHILS RELATIVE PERCENT (BEAKER) (test code = 432) 2 % BASOPHILS RELATIVE PERCENT (BEAKER) (test code = 437) 0 % NEUTROPHILS ABSOLUTE COUNT (BEAKER) (test code = 670) 8.08 K/ L 1.78-5.38 H LYMPHOCYTES ABSOLUTE COUNT (BEAKER) (test code = 414) 2.01 K/ L 1.32-3.57 MONOCYTES ABSOLUTE COUNT (BEAKER) (test code = 415) 0.52 K/ L 0. 30-0.82 EOSINOPHILS ABSOLUTE COUNT (BEAKER) (test code = 416) 0.24 K/ L 0.04-0.54 BASOPHILS ABSOLUTE COUNT (BEAKER) (test code = 417) 0.03 K/ L 0. 01-0.08 IMMATURE GRANULOCYTES-RELATIVE PERCENT (BEAKER) (test code = 2801) 0 % 0-1 Blood [id number] 02:01:00* Test Item Value Reference Range Interpretation Comments Blood Culture (test code = 600-7) No growth 5 days [facility] GLUCOSE POC docked [id number] 13:14:00* Test Item Value Reference Range Interpretation Comments Glucose POC (test code = 21366829) 76 mg/dL 74-106 Lab Interpretation (test code = 51855-1) [facility] 09:45:00* Test Item Value Reference Range Interpretation Comments Magnesium (test code = 48308674) 1.6 mg/dL 1.9-2.7 L Lab Interpretation (test code = 66276-4) [facility]normal [facility]1464[facility]83-84 09:45:00* Test Item Value Reference Range Interpretation Comments Phosphorus (test code = 2777-1) 3.8 mg/dL 2.5-5 Lab Interpretation (test code = 87061-1) [facility] [id number] 09:45:00* Test Item Value Reference Range Interpretation Comments Sodium (test code = 2951-2) 137 mmol/L 136-145 Potassium (test code = 2823-3) 3.9 mmol/L 3.5-5.1 Chloride (test code = 2075-0) 101 mmol/L 98-107 CO2 (test code = 08888339) 26 mmol/L 21-31 Glucose (test code = 55438633) 81 mg/dL 70-110 Calcium (test code = 30803666) 8.7 mg/dL 8.6-10.3 Urea Nitrogen (test code = 93966530) 13.0 mg/dL 7-25 Creatinine (test code = 79362216) 0.7 mg/dL 0.7-1.3 Alkaline Phosphatase (test code = 33875119) 63 U/L 34-104 ALT (test code = 45353537) 14 U/L 7-52 AST (test code = 43742170) 20 U/L 13-39 Total Protein (test code = 2885-2) 5.8 g/dL 6-8.3 L GFR, Estimated (test code = 13250309) >90 >=90 mL/min/1.73 m2 Albumin (test code = 99749-9) 3.1 g/dL 4.2-5.5 L Anion Gap (test code = 23561183) 10 mmol/L 5-16 Lab Interpretation (test code = 54154-5) [facility]Cal[facility], [id number] 09:33:00* Test Item Value Reference Range Interpretation Comments Calcium, Ionized (test code = 74186291) 1.18 mmol/L 1.15-1.29 Lab Interpretation (test code = 43877-3) Normal [facility] HospitalCBC/[id number] 09:32:00* Test Item Value Reference Range Interpretation Comments WBC (test code = 6690-2) 6.0 K/uL 4.5-12 RBC (test code = 789-8) 3.55 4.60- 6.20 M/uL L Hemoglobin (test code = 718-7) 10.1 g/dL 14-18 L Hematocrit (test code = 4544-3) 31.1 % 40-54 L MCV (test code = 787-2) 87.6 fL 82-92 MCH (test code = 785-6) 28.5 pg 27-31 MCHC (test code = 786-4) 32.5 g/dL 32-36 RDW (test code = 76032-6) 45.7 fL 35.1-43.9 H Platelet (test code = 777-3) 211 K/uL 150-400 Mean Platelet Volume (test code = 81372-5) 9.6 fL 9.4-12.4 Percent NRBC (test code = 15101542) 0.0 % Neutrophil (test code = 770-8) 63.0 % 34-67.9 Lymphs (test code = 736-9) 24.8 % 21.8-50 Monocytes (test code = 5905-5) 9.4 % 5.3-12 Eos (test code = 713-8) 2.2 % 0.8-5 Basos (test code = 706-2) 0.3 % 0.2-1.2 Immature Granulocytes (test code = 02275098) 0.3 % 0-0.5 Neutrophils (Absolute) (test code = 43039328) 3.76 K/uL 1.78-5.3 6 Lymphs (Absolute) (test code = 67442714) 1.48 K/uL 1.32-3.57 Monocytes(Absolute) (test code = 87096197) 0.56 K/uL 0.3-0.82 Eos (Absolute) (test code = 42223563) 0.13 K/uL 0.04-0.54 Baso (Absolute) (test code = 82706259) 0.02 K/uL 0.01-0.08 Immature Grans (Abs) (test code = 33828946) 0.02 K/uL 0-0.03 Absolute NRBC (test code = 71552917) 0.00 K/uL Lab Interpretation (test code = 67926-9) Abnormal [facility] Metabolic [id number] 15:12:00* Test Item Value Reference Range Interpretation Comments Sodium (test code = 2951-2) 139 mmol/L 136-145 Potassium (test code = 2823-3) 3.9 mmol/L 3.5-5.1 Chloride (test code = 2075-0) 101 mmol/L 98-107 CO2 (test code = 08932008) 30 mmol/L 21-31 Urea Nitrogen (test code = 77710542) 17.0 mg/dL 7-25 Creatinine (test code = 41178013) 0.7 mg/dL 0.7-1.3 Glucose (test code = 95478636) 81 mg/dL 70-110 Calcium (test code = 93127299) 8.4 mg/dL 8.6-10.3 L GFR, Estimated (test code = 85985924) >90 >=90 mL/min/1.73 m2 Anion Gap (test code = 74242426) 8 mmol/L 5-16 Lab Interpretation (test code = 37288-2) Abnormal [facility] HospitalLiver [id number] 15:12:00* Test Item Value Reference Range Interpretation Comments Bilirubin, Total (test code = 2885-2) 0.3 mg/dL 0.2-1.2 L Alkaline Phosphatase (test code = 13623009) 61 U/L 34-104 AST (test code = 46882639) 26 U/L 13-39 Direct Bilirubin (test code = 1968-7) 0.1 mg/dL 0-0.2 ALT (test code = 39765246) 17 U/L 7-52 Albumin (test code = 33151-4) 3.0 g/dL 4.2-5.5 L Lab Interpretation (test code = 77065-5) Abnormal [facility] HospitalYyzcspFxitdvdusm2577-77-24 12:13:00* Test Item Value Reference Range Interpretation Comments Color (test code = 02441387) Yellow Colorless, Straw, Yellow Clarity (test code = 93200359) Cloudy Clear A Spec Mcintosh, Ur (test code = 72877978) >1.035 1.001-1.035 H pH, Ur (test code = 07118422) 6.0 5.0-8.0 Protein, Ur (test code = 41649721) 1+ Negative mg/dL A Glucose, Ur (test code = 82871703) 1+ Negative mg/dL A Ketone, Ur (test code = 12618021) Negative Negative mg/dL Bilirubin, Ur (test code = 33088938) Negative Negative mg/dL Nitrite, Ur (test code = 30552984) Negative Negative Leukocyte (test code = 66724082) 3+ Negative mg/dL A Blood, Ur (test code = 40557212) 1+ Negative mg/dL A RBC (test code = 23189368) 56 0- 4 /HPF H WBC (test code = 82373662) >182 0- 5 /HPF H Epithelial Cell (test code = 53936319) 2 <=1 /HPF H Bacteria (test code = 42967366) Moderate None seen /HPF A WBC Clumps (test code = 98299173) Many None seen /HPF A Urobilinogen, Ur (test code = 29663782) <1.0 <1.0 EU/dL Lab Interpretation (test code = 40216-0) Abnormal [employer] IncDifferential, [id number] 10:03:00* Test Item Value Reference Range Interpretation Comments Neutrophil (test code = 99642416) 81.0 % 34-67.9 H Lymphs (test code = 31746628) 14.0 % 21.8-50 L Monocytes (test code = 57177033) 5.0 % 5.3-12 L Eos (test code = 30923700) 0.0 % 0.8-5 L Basos (test code = 30204819) 0.0 % 0.2-1.2 L Neutrophils (Absolute) (test code = 82062492) 5.51 K/uL 1.78-5.3 6 H Lymphs (Absolute) (test code = 76232344) 0.95 K/uL 1.32-3.57 L Monocytes(Absolute) (test code = 56343214) 0.34 K/uL 0.3-0.82 Eos (Absolute) (test code = 47458654) 0.00 K/uL 0.04-0.54 L Baso (Absolute) (test code = 33601607) 0.00 K/uL 0.01-0.08 L Cells Counted (test code = 96349564) Lab Interpretation (test code = 27840-0) Abnormal [facility] HospitalCT [facility] AND PELVIS [id number] 09:19:44IMPRESSION: 1. Acute bilateral pyelonephritis with associated pyelitis andureteritis. No evidence of organized fluid collection. Bladder wallthickening suggestive of cystitis.2. Stable postsurgical changes from segmentectomy involving th eposterior medial aspect of the right lower lobe. Stable small loculatedfluid co llection with surrounding pleural calcifications in the rightlower lobe.3. Cassandra re diffuse atherosclerotic disease of the abdominal aorta andits branches includ ing prominent calcifications at the celiac and SMAorigins.4. Stable appearance of fusion hardware at L4-S1.5. Descending colonic diverticulosis without eviden ce of acutediverticulitis.6. Stable cystic lesions in the left kidney. This EPI C radiology report is a preliminary resident dictation untilfinalized by an atte nding. Changes to this preliminary report may occurin an additional preliminary or finalized version. Dictated By: Orlando Lama MD, 02/09/2019 2:04 AM I salcido ve reviewed the study and agree with the findings in this report. Signed By: John Mckee MD, 02/09/2019 4:19 AM Interface, Rad/Mammog In - 02/09/2019 4:24 A M CDTEXAM: CT ABDOMEN AND PELVIS WITH CONTRASTDATE: 02/09/2019 1:17 AM INDICATIO N: Abd pain, acute, generalized. Sepsis, due to unspecifiedorganism, unspecified whether acute organ dysfunction present COMPARISON: CT abdomen pelvis 11/20/2017 TECHNIQUE: Volumetric CT of the abdomen and pelvis is acquired followingthe intr avenous administration of contrast. Axial, coronal and sagittalimages are provid ed. IV contrast: 100 of Omnipaque 300Enteric contrast: None.DLP: 1359 mGy-cm FIN DINGS: Lines, tubes and hardware: None.Lower thorax: Three-vessel coronary james ry disease. Stable postsurgicalchanges involving right lower lobe segmentectomy with an unchangedloculated fluid collection in the right posterior pleura with a ssociatedscattered pleural calcifications. These findings are unchanged whencomp ared to prior study dated 11/20/2017.Liver: Normal. Mild intrahepatic periportal edema.Biliary tree: No intra- or extrahepatic biliary ductal dilation.Gallbladde r: No CT evidence of cholelithiasis.Pancreas: Normal.Spleen: Normal.Adrenals: No rmal.Kidneys and ureters: Diffuse bilateral areas of decreased corticalattenuati on. Increased mucosal enhancement of bilateral renal pelvisesand ureters. Promin ent bilateral perinephric fat stranding. Stable 4.8cm hypodensity in the inferio r pole of the left kidney with internalfluid density. 1.3 cm hypodensity in the superior pole of the leftkidney is also stable. Other scattered bilateral subcen timeterhypodensities that are too small to characterize but likely representings imple cysts. Bilateral renal calcifications are likely vascular innature.Bladder : Normal.Reproductive organs: The prostate and seminal vesicles are unremarkable .Gastrointestinal tract:Stomach: Normal.Small bowel: Normal.Colon: Moderate colo hellen stool burden. Minimal diverticulosis of thedescending colon.Appendix: Karolina l image 30 series 601.Peritoneum, mesentery and retroperitoneum: No free air, a scites orloculated fluid.Lymph nodes: Scattered nonspecific subcentimeter retrop eritoneal lymphnodes.Vasculature: Aorta and branches: There are marked areas of calcified and noncalcifiedplaque along the abdominal aorta and iliac arteries. E valuation of thelumen is limited due to prominent vessel calcification. Prominen tcalcifications at the celiac and SMA originsIVC and veins: Normal.Portal vascul ature: Normal.Bones: No acute abnormality. Stable appearance of posterior L5lami nectomies and L4-S1 posterior spinal fusion, with intervertebraldisc grafts and L5-S1 anterior vertebral body screws. Disc disease atL2-3 with disc ossified com plexes causing moderate spinal canal stenosisSoft tissues: Normal.IMPRESSIONIMPR ESSION: 1. Acute bilateral pyelonephritis with associated pyelitis andureterit is. No evidence of organized fluid collection. Bladder wallthickening suggestive of cystitis.2. Stable postsurgical changes from segmentectomy involving thepos terior medial aspect of the right lower lobe. Stable small loculatedfluid collec tion with surrounding pleural calcifications in the rightlower lobe.3. Severe d iffuse atherosclerotic disease of the abdominal aorta andits branches including prominent calcifications at the celiac and SMAorigins.4. Stable appearance of f usion hardware at L4-S1.5. Descending colonic diverticulosis without evidence o f acutediverticulitis.6. Stable cystic lesions in the left kidney.This [facility] rad iology report is a preliminary resident dictation untilfinalized by an attending . Changes to this preliminary report may occurin an additional preliminary or f inalized version.Dictated By: Orlando Lama MD, 02/09/2019 2:04 AMI have revi ewed the study and agree with the findings in this report.Signed By: Edson jhaveri MD, 02/09/2019 4:19 [facility] VBG POC docked [id number] 07:47:00* Test Item Value Reference Range Interpretation Comments pH, Noé POC (test code = 62142024) 7.43 7.33-7.43 HCO3, Noé POC (test code = 29255778) 23 mmol/L 22-26 TCO2 POC (test code = 23421806) 24 mmol/L 21-32 PO2, Venous POC (BKR) (test code = 00219227) 54 50- 75 mm Hg pCO2,Noé POC (test code = 66553839) 35.4 38- 50 mmHg L Base Deficit, Noé POC (test code = 11722430) -1 Sánchez's Test (test code = 46574505) YADY Sample Type (test code = 29687593) IVEN Site (test code = 94191706) RRADIA Lactic Acid POC (test code = 56315789) 0.39 mmol/L 0.4-2 L % Sat, Noé POC (test code = 85924035) 89 % Lab Interpretation (test code = 85891-9) Abnormal [facility] HospitalX[facility] CHEST 1 [id number] 02:53:42IMPRESSION: ] Retrocardiac opacity may represent airspace disease versusatelectasis. Trace right pleural effusion suspected. Signed By: Morena Dockery MD, 02/08/2019 9:53 PM Interface, Rad/Mammog In - 02/08/2019 9:58 PM CDTEXAM:XRAY CHEST 1 VIEWDATE:02/08/2019 9:17 PMINDICATION:eval for pneumoniaCOMPARISON:Chest x-ray 02/05/2019DISCUSSION: Stable elevation of the right hemidiaphragm. Right retrocardiac opacity.Trace right pleural effusion is suspected. Left lung is clear. Thecardiovascular silhouette is within normal limits.IMPRESSIONIMPRESSION:] Retrocardiac opacity may represent airspace disease versusatelectasis. Trace right pleural effusion suspected.Signed By: Morena Dockery MD, 02/08/2019 9:53 PMHarris HealthPT/INR/PTT 2019-02-09 02:14:00* Test Item Value Reference Range Interpretation Comments PT (test code = 5902-2) 12.5 11.8- 15.0 Seconds INR (test code = 61273337) 1.0 Refer to INR ranges 2.0 - 3.0 for moderate intensity anticoagulation2.5 - 3.5 for high intensity anticoagulation PTT (test code = 77509826) 42.9 23.6- 36.4 Seconds H The recommended therapuetic range is an APTT 61-103 seconds which corresponds to 0.3-0.7 anti Xa u/ml. Lab Interpretation (test code = 52190-2) Abnormal [facility] TROPONIN I POC docked [id number] 00:58:00* Test Item Value Reference Range Interpretation Comments Troponin POC (test code = 38364932) 0.01 ng/mL 0-0.08 Lab Interpretation (test code = 62838-3) Normal [facility] BMP POC docked [id number] 00:49:00* Test Item Value Reference Range Interpretation Comments Sodium POC (test code = 93528784) 137 mmol/L 136-145 Potassium POC (test code = 60330073) 4.5 mmol/L 3.5-5.1 Chloride POC (test code = 94473897) 100 mmol/L 98-107 TCO2 POC (test code = 58069323) 31 mmol/L 21-32 Urea Nitrogen POC (test code = 14034504) 29 mg/dL 7-18 H Creatinine POC (test code = 83980826) 1.1 mg/dL 0.6-1.3 Glucose POC (test code = 49238620) 95 mg/dL 74-106 Ionized Calcium POC (test code = 73945923) 1.18 mmol/L 1.15-1.29 GFR, Estimated (test code = 08899992) 66 >=90 mL/min/1.73 m2 L Hemoglobin POC (test code = 66809940) 12.2 g/dL 12-16 Hematocrit POC (test code = 84748591) 36.0 % 37-47 L Lab Interpretation (test code = 11900-4) Abnormal [place] [address] LEAD [id number] 21:13:3112 LEAD EKG FOR CHP Serge [facility] Test Date: [id number] Name: MARLEN NOLAND Department: Room: 3B07Cqhktj: M Manager Legal: [id number]: 1945 Requested By: HERBERT Garcia Number: [id number] Reading MD: Yvan Coley MeasurementsIntervals [place] Rate: 130 P: LA: 0 QRS: 105QRSD: 110 T: 67QT: 327 QTc: 482 Interpretive StatementsATRIAL FIBRILLATION WITH RAPID VENTRICULAR RESPONSEMARKED RIGHT AXIS DEVIATION [QRS AXIS > 100]RIGHT BUNDLE BRANCH BLOCK [120+ ms QRS DURATION, UPRIGHT V1, 40+ ms S IN I/aVL/V4/V5/V6]Electronically Signed On 01-23-2019 16:13:27 CDT by Yvan Waterman [facility] [id number] 16:28:00* Test Item Value Reference Range Interpretation Comments Hemoglobin A1c (test code = 4548-4) 7.2 % 4.3-6.1 H Estimated Average Glucose (test code = 08338891) 160 mg/dL 70-11 0 H Lab Interpretation (test code = 67138-7) Abnormal [facility]PT/[id number] 09:35:00* Test Item Value Reference Range Interpretation Comments PT (test code = 5902-2) 15.0 11.8- 15.0 Seconds INR (test code = 90807183) 1.2 Refer to INR ranges 2.0 - 3.0 for moderate intensity anticoagulation2.5 - 3.5 for high intensity anticoagulation Lab Interpretation (test code = 93380-5) Normal [facility] 2 [id number] 23:57:06IMPRESSION: 1. Persistent right lower lung reticular opacities, which may representscarring or subsegmental atelectasis, with possible superimposedconsolidation, possibly due to infection or aspiration pneumonitis.2. Postsurgical changes in the right lung are unchanged compared toprior. This [facility] radiology report is a preliminary resident dictation untilfinalized by an attending. Changes to this preliminary report may occurin an additional preliminary or finalized version. Dictated By: Herbert Parra MD, 01/21/2019 6:31 PM I have reviewed the study and agree with the findings in this report. Signed By: Radha Sanderson MD, 01/21/2019 6:57 PM Interface, Rad/Mammog In - 01/21/2019 7:02 PM CDTEXAM: XR CHEST 2 VIEWSDATE: 01/21/2019 6:03 PM INDICATION: atelectasis and pneumonia. Pneumonia of right lung due toinfectious organism, unspecified part of lung COMPARISON: Chest x-ray obtained 5 hours priorTECHNIQUE: PA and lateral chest radiographsFINDINGS:Lines, tubes and hardware: Stable appearance of midline sternotomywires, sutures in the right upper lung, and mediastinal surgical clips. Lungs and pleura: There is persistent right lower lung reticularopacities, which may represent scarring v ersus subsegmental atelectasis.Cannot rule out superimposed areas of consolidati on in the right lowerlung. There is decreased volume in the right lung compared to the left.The left lung is largely clear. Possible small bilateral pleuraleffu sions.Heart and mediastinum: The heart size is normal for technique. Themediasti nal contours are normal. Bones and soft tissues: Degenerative changes are presen t without acuteabnormality.IMPRESSIONIMPRESSION: 1. Persistent right lower ana maría g reticular opacities, which may representscarring or subsegmental atelectasis, with possible superimposedconsolidation, possibly due to infection or aspiration pneumonitis.2. Postsurgical changes in the right lung are unchanged compared t oprior.This [facility] radiology report is a preliminary resident dictation untilfinal ized by an attending. Changes to this preliminary report may occurin an additio nal preliminary or finalized version.Dictated By: Herbert Parra MD, 01/21/2019 6:3 1 PMI have reviewed the study and agree with the findings in this report.Signed By: Radha Sanderson MD, 01/21/2019 6:57 PMHarris HealthXRAY ANKLE 3 VIEW MIN 2019-01-21 22:24:02IMPRESSION: Mildly displaced oblique fracture of the lateral malleolus, likelysubacute. Signed By: Radha Sanderson MD, 01/21/2019 5:24 PM Interface, Rad/Mammog In - 01/21/2019 5:29 PM CDTEXAM: XR LEFT ANKLE 3 VIEWSEXAM: XR LEFT FOOT 3 VIEWSDATE: 01/21/2019 4:40 PMINDICATION: pain, reported fracture. Left ankle pain, unspecifiedchronicity COMPARISON: None availableTECHNIQUE: 3 views of the ankle, 3 views of the foot. FINDINGS: Mild generalized bony demineralization.Ankle: There is oblique fracture of the lateral malleolus withquestionable extension to syndesmosis. The distal fragment is displacedanterolaterally by approximately one cortical width. The anklemortise is congruent. Small plantar calcaneal enthesophyte.Foot: No acute fracture or malalignment is identified. Soft tissues: Mild soft tissue swelling overlying the lateral malleolus.Atherosclerotic vascular calcifications are present.IMPRESSIONIMPRESSION: Mildly displaced oblique fracture of the lateral malleolus, likelysubacute. Signed By: Radha Sanderson MD, 01/21/2019 5:24 PMBeldenville HealthXRAY FOOT 3 VIEWS [id number] 22:24:02IMPRESSION: Mildly displaced oblique fracture of the lateral malleolus, likelysubacute. Signed By: Radha Sanderson MD, 01/21/2019 5:24 PM Interface, Rad/Mammog In - 01/21/2019 5:29 PM CDTEXAM: XR LEFT ANKLE 3 VIEWSEXAM: XR LEFT FOOT 3 VIEWSDATE: 01/21/2019 4:40 PMINDICATION: pain, reported fracture. Left ankle pain, uns pecifiedchronicity COMPARISON: None availableTECHNIQUE: 3 views of the ankle, 3 views of the foot. FINDINGS: Mild generalized bony demineralization.Ankle: There is oblique fracture of the lateral malleolus withquestionable extension to synd esmosis. The distal fragment is displacedanterolaterally by approximately one co rtical width. The anklemortise is congruent. Small plantar calcaneal entheso phyte.Foot: No acute fracture or malalignment is identified. Soft tissues: Mi ld soft tissue swelling overlying the lateral malleolus.Atherosclerotic vascular calcifications are present.IMPRESSIONIMPRESSION: Mildly displaced oblique frac ture of the lateral malleolus, likelysubacute. Signed By: Radha Sanderson MD, 01/21 5:24 PMHarsierra [facility] hospital Tag & SeeGold Top [id number] 20:01:00* Test Item Value Reference Range Interpretation Comments Hold Specimen (test code = 72411058) [id number] [facility] HospitalPurple [id number] 20:01:00* Test Item Value Reference Range Interpretation Comments Hold Specimen (test code = 38315307) [id number] [facility] HospitalB-TYPE NATRIURETIC [id number] 01:44:00* Test Item Value Reference Range Interpretation Comments B-TYPE NATRIURETIC PEPTIDE (test code = BNP) 41.01 pgram/mL 0-100 N BASIC METABOLIC [id number] 01:25:00* Test Item Value Reference Range Interpretation Comments SODIUM (test code = NA) 138 mmol/L 136-145 N POTASSIUM (test code = K) 3.8 mmol/L 3.5-5.1 N CHLORIDE (test code = CL) 104.0 mmol/L 98-107 N CARBON DIOXIDE (test code = CO2) 29.0 mmol/L 21-32 N ANION GAP (test code = GAP) 8.8 10-20 L GLUCOSE (test code = GLU) 140 mg/dL 74-106 H BLOOD UREA NITROGEN (test code = BUN) 9 mg/dL 7-18 N GLOMERULAR FILTRATION RATE (test code = GFR) > 60 mL/min >=60 Estimated GFR by using Modified MDRD formula.Chronic kidney disease is defined as either kidney damageor GFR <60 mL/min/1.73 m2 for >3 months. CREATININE (test code = CREAT) 0.90 mg/dL 0.7-1.3 N BUN/CREATININE RATIO (test code = BUN/CREA) 10.0 10-20 N CALCIUM (test code = CA) 8.4 mg/dL 8.5-10.1 L [id number] 01:25:00* Test Item Value Reference Range Interpretation Comments TROPONIN-I (test code = TROPI) <0.015 ng/mL 0-0.045 N BASIC METABOLIC [id number] 01:15:00* Test Item Value Reference Range Interpretation Comments SODIUM (test code = NA) 138 mmol/L 136-145 N POTASSIUM (test code = K) 3.8 mmol/L 3.5-5.1 N CHLORIDE (test code = CL) 104.0 mmol/L 98-107 N CARBON DIOXIDE (test code = CO2) mmol/L 21-32 ANION GAP (test code = GAP) 10-20 GLUCOSE (test code = GLU) mg/dL 74-106 BLOOD UREA NITROGEN (test code = BUN) mg/dL 7-18 GLOMERULAR FILTRATION RATE (test code = GFR) mL/min >=60 CREATININE (test code = CREAT) mg/dL 0.7-1.3 BUN/CREATININE RATIO (test code = BUN/CREA) 10-20 CALCIUM (test code = CA) mg/dL 8.5-10.1 [id number] 01:15:00* Test Item Value Reference Range Interpretation Comments TROPONIN-I (test code = TROPI) ng/mL 0-0.045 PROTHROMBIN [id number] 01:13:00* Test Item Value Reference Range Interpretation Comments PROTHROMBIN TIME PATIENT (test code = PTP) 12.1 seconds 9.0-14.0 N INTERNATIONAL NORMAL RATIO (test code = INR) 1.0 0.8-1.2 N The therapeutic range for oral anticoagulant therapy [...] (2.5-3.5) IS PATIENT ON ANTICOAGULANTS? NTHROMBOPLASTIN TIME [id number] 01:13:00* Test Item Value Reference Range Interpretation Comments THROMBOPLASTIN TIME PARTIAL (test code = PTT) 32.0 seconds 25.0-36. 5 N IS PATIENT ON ANTICOAGULANTS? NCBC W/O [id number] 01:01:00* Test Item Value Reference Range Interpretation Comments WHITE BLOOD CELL (test code = WBC) 9.0 K/mm3 4.5-12.5 N RED BLOOD CELL (test code = RBC) 3.54 mill/mm3 4.0-5.8 L HEMOGLOBIN (test code = HGB) 10.5 gram/dL 13.0-17.5 L HEMATOCRIT (test code = HCT) 32.5 % 42.0-52.0 L MEAN CELL VOLUME (test code = MCV) 91.8 fL 80-98 N MEAN CELL HGB (test code = MCH) 29.7 picogram 27.0-33.0 N MEAN CELL HGB CONCETRATION (test code = MCHC) 32.3 gram/dL 33.0-36. 0 L RED CELL DISTRIBUTION WIDTH (test code = RDW) 12.7 % 11.6-16. 2 N PLATELET COUNT (test code = PLT) 303 K/mm3 150-450 N MEAN PLATELET VOLUME (test code = MPV) 9.6 fL 6.7-11.0 N - XR CHEST 1 [id number] 00:44:00 FAX: Paolo Cunningham MD [place]: B St: REG Name: MARLEN RODGERS [facility] : [birth year] Age/S: 73/M [address] [facility] Unit #: [id number] Loc: [place] [address] Phys: Paolo Cunningham MD Acct: [id number] Dis Date: Status: REG ER PHONE #: [phone] Exam Date: 01/14/2019 0035 FAX #: [phone] Reason: CHEST PAIN EXAMS: CPT CODE: [id number] XR CHEST 1 V 00751 DICTATION LOCATION: H48 HISTORY: Male, 73 years of age with [...] S: 01/14/2019 (0047) PAGE 1 Signed Report [id number] 08:44:00 * Test Item Value Reference Range Interpretation Comments GLUBED (test code = GLUBED) 178 mg/dL 74-106 H Performed by certified butadiene convertor operator at [facility] [id number] 16:34:00* Test Item Value Reference Range Interpretation Comments GLUBED (test code = GLUBED) 132 mg/dL 74-106 H Performed by certified butadiene convertor operator at [facility] [id number] 12:10:00* Test Item Value Reference Range Interpretation Comments GLUBED (test code = GLUBED) 281 mg/dL 74-106 H Performed by certified butadiene convertor operator at [facility] BASIC METABOLIC [id number] 07:36:00* Test Item Value Reference Range Interpretation Comments SODIUM (test code = NA) 139 mmol/L 136-145 N POTASSIUM (test code = K) 4.2 mmol/L 3.5-5.1 N CHLORIDE (test code = CL) 101.0 mmol/L 98-107 N CARBON DIOXIDE (test code = CO2) 31.0 mmol/L 21-32 N ANION GAP (test code = GAP) 11.2 10-20 N GLUCOSE (test code = GLU) 170 mg/dL 74-106 H BLOOD UREA NITROGEN (test code = BUN) 24 mg/dL 7-18 H GLOMERULAR FILTRATION RATE (test code = GFR) > 60 mL/min >=60 Estimated GFR by using Modified MDRD formula.Chronic kidney disease is defined as either kidney damageor GFR <60 mL/min/1.73 m2 for >3 months. CREATININE (test code = CREAT) 0.90 mg/dL 0.7-1.3 N BUN/CREATININE RATIO (test code = BUN/CREA) 26.7 10-20 H CALCIUM (test code = CA) 9.4 mg/dL 8.5-10.1 N BASIC METABOLIC [id number] 07:18:00* Test Item Value Reference Range Interpretation Comments SODIUM (test code = NA) 139 mmol/L 136-145 N POTASSIUM (test code = K) 4.2 mmol/L 3.5-5.1 N CHLORIDE (test code = CL) 101.0 mmol/L 98-107 N CARBON DIOXIDE (test code = CO2) mmol/L 21-32 ANION GAP (test code = GAP) 10-20 GLUCOSE (test code = GLU) mg/dL 74-106 BLOOD UREA NITROGEN (test code = BUN) mg/dL 7-18 GLOMERULAR FILTRATION RATE (test code = GFR) mL/min >=60 CREATININE (test code = CREAT) mg/dL 0.7-1.3 BUN/CREATININE RATIO (test code = BUN/CREA) 10-20 CALCIUM (test code = CA) mg/dL 8.5-10.1 [id number] 21:14:00* Test Item Value Reference Range Interpretation Comments GLUBED (test code = GLUBED) 276 mg/dL 74-106 H Performed by certified butadiene convertor operator at [facility] [id number] 17:01:00* Test Item Value Reference Range Interpretation Comments GLUBED (test code = GLUBED) 164 mg/dL 74-106 H Performed by certified butadiene convertor operator at [facility] [id number] 11:45:00* Test Item Value Reference Range Interpretation Comments GLUBED (test code = GLUBED) 190 mg/dL 74-106 H Performed by certified butadiene convertor operator at [facility] CBC W/AUTO [id number] 10:30:00* Test Item Value Reference Range Interpretation Comments WHITE BLOOD CELL (test code = WBC) 6.2 K/mm3 4.5-12.5 N RED BLOOD CELL (test code = RBC) 3.45 mill/mm3 4.0-5.8 L HEMOGLOBIN (test code = HGB) 10.7 gram/dL 13.0-17.5 L HEMATOCRIT (test code = HCT) 33.4 % 42.0-52.0 L MEAN CELL VOLUME (test code = MCV) 96.8 fL 80-98 N MEAN CELL HGB (test code = MCH) 31.0 picogram 27.0-33.0 N MEAN CELL HGB CONCETRATION (test code = MCHC) 32.0 gram/dL 33.0-36. 0 L RED CELL DISTRIBUTION WIDTH (test code = RDW) 12.6 % 11.6-16. 2 N RED CELL DISTRIBUTION WIDTH SD (test code = RDW-SD) 43.8 fL 37 .0-51.0 N PLATELET COUNT (test code = PLT) 247 K/mm3 150-450 N MEAN PLATELET VOLUME (test code = MPV) 10.3 fL 6.7-11.0 N NEUTROPHIL % (test code = NT%) 57.2 % 39.0-69.0 N IMMATURE GRANULOCYTE % (test code = IG%) 0.3 % 0.0-5.0 N LYMPHOCYTE % (test code = LY%) 29.7 % 25.0-55.0 N MONOCYTE % (test code = MO%) 6.5 % 0.0-10.0 N EOSINOPHIL % (test code = EO%) 5.5 % 0.0-5.0 H BASOPHIL % (test code = BA%) 0.8 % 0.0-1.0 N NUCLEATED RBC % (test code = NRBC%) 0.0 % 0-0 N NEUTROPHIL # (test code = NT#) 3.52 K/mm3 1.8-7.7 N IMMATURE GRANULOCYTE # (test code = IG#) 0.02 x10 3/uL 0-0.03 N LYMPHOCYTE # (test code = LY#) 1.83 K/mm3 1.0-5.0 N MONOCYTE # (test code = MO#) 0.40 K/mm3 0-0.8 N EOSINOPHIL # (test code = EO#) 0.34 K/mm3 0.0-0.5 N BASOPHIL # (test code = BA#) 0.05 K/mm3 0.0-0.2 N NUCLEATED RBC # (test code = NRBC#) 0.00 K/mm3 0.0-0.1 N BASIC METABOLIC [id number] 07:22:00* Test Item Value Reference Range Interpretation Comments SODIUM (test code = NA) 139 mmol/L 136-145 N POTASSIUM (test code = K) 4.5 mmol/L 3.5-5.1 N CHLORIDE (test code = CL) 104.0 mmol/L 98-107 N CARBON DIOXIDE (test code = CO2) 26.0 mmol/L 21-32 N ANION GAP (test code = GAP) 13.5 10-20 N GLUCOSE (test code = GLU) 159 mg/dL 74-106 H BLOOD UREA NITROGEN (test code = BUN) 28 mg/dL 7-18 H GLOMERULAR FILTRATION RATE (test code = GFR) > 60 mL/min >=60 Estimated GFR by using Modified MDRD formula.Chronic kidney disease is defined as either kidney damageor GFR <60 mL/min/1.73 m2 for >3 months. CREATININE (test code = CREAT) 1.00 mg/dL 0.7-1.3 N BUN/CREATININE RATIO (test code = BUN/CREA) 29.5 10-20 H CALCIUM (test code = CA) 9.1 mg/dL 8.5-10.1 N [id number] 05:26:00* Test Item Value Reference Range Interpretation Comments GLUBED (test code = GLUBED) 154 mg/dL 74-106 H Performed by certified butadiene convertor operator at [facility] [id number] 20:39:00* Test Item Value Reference Range Interpretation Comments GLUBED (test code = GLUBED) 163 mg/dL 74-106 H Performed by certified butadiene convertor operator at [facility] [id number] 16:55:00* Test Item Value Reference Range Interpretation Comments GLUBED (test code = GLUBED) 363 mg/dL 74-106 H Performed by certified butadiene convertor operator at [facility] [id number] 12:41:00* Test Item Value Reference Range Interpretation Comments GLUBED (test code = GLUBED) 193 mg/dL 74-106 H Performed by certified butadiene convertor operator at [facility] [id number] 06:02:00* Test Item Value Reference Range Interpretation Comments GLUBED (test code = GLUBED) 243 mg/dL 74-106 H Performed by certified butadiene convertor operator at [facility] [id number] 21:59:00* Test Item Value Reference Range Interpretation Comments GLUBED (test code = GLUBED) 132 mg/dL 74-106 H Performed by certified butadiene convertor operator at [facility] [id number] 16:10:00* Test Item Value Reference Range Interpretation Comments GLUBED (test code = GLUBED) 273 mg/dL 74-106 H Performed by certified butadiene convertor operator at [facility] [id number] 11:39:00* Test Item Value Reference Range Interpretation Comments GLUBED (test code = GLUBED) 196 mg/dL 74-106 H Performed by certified butadiene convertor operator at [facility] [id number] 07:13:00* Test Item Value Reference Range Interpretation Comments GLUBED (test code = GLUBED) 185 mg/dL 74-106 H Performed by certified butadiene convertor operator at [facility] CBC W/AUTO [id number] 06:24:00* Test Item Value Reference Range Interpretation Comments WHITE BLOOD CELL (test code = WBC) 7.0 K/mm3 4.5-12.5 N RED BLOOD CELL (test code = RBC) 3.28 mill/mm3 4.0-5.8 L HEMOGLOBIN (test code = HGB) 10.3 gram/dL 13.0-17.5 L HEMATOCRIT (test code = HCT) 31.6 % 42.0-52.0 L MEAN CELL VOLUME (test code = MCV) 96.3 fL 80-98 N MEAN CELL HGB (test code = MCH) 31.4 picogram 27.0-33.0 N MEAN CELL HGB CONCETRATION (test code = MCHC) 32.6 gram/dL 33.0-36. 0 L RED CELL DISTRIBUTION WIDTH (test code = RDW) 12.6 % 11.6-16. 2 N RED CELL DISTRIBUTION WIDTH SD (test code = RDW-SD) 44.4 fL 37 .0-51.0 N PLATELET COUNT (test code = PLT) 288 K/mm3 150-450 N MEAN PLATELET VOLUME (test code = MPV) 9.7 fL 6.7-11.0 N NEUTROPHIL % (test code = NT%) 60.1 % 39.0-69.0 N IMMATURE GRANULOCYTE % (test code = IG%) 0.9 % 0.0-5.0 N LYMPHOCYTE % (test code = LY%) 26.8 % 25.0-55.0 N MONOCYTE % (test code = MO%) 6.4 % 0.0-10.0 N EOSINOPHIL % (test code = EO%) 5.1 % 0.0-5.0 H BASOPHIL % (test code = BA%) 0.7 % 0.0-1.0 N NUCLEATED RBC % (test code = NRBC%) 0.0 % 0-0 N NEUTROPHIL # (test code = NT#) 4.23 K/mm3 1.8-7.7 N IMMATURE GRANULOCYTE # (test code = IG#) 0.06 x10 3/uL 0-0.03 H LYMPHOCYTE # (test code = LY#) 1.89 K/mm3 1.0-5.0 N MONOCYTE # (test code = MO#) 0.45 K/mm3 0-0.8 N EOSINOPHIL # (test code = EO#) 0.36 K/mm3 0.0-0.5 N BASOPHIL # (test code = BA#) 0.05 K/mm3 0.0-0.2 N NUCLEATED RBC # (test code = NRBC#) 0.00 K/mm3 0.0-0.1 N MANUAL DIFF REQUIRED (test code = MDIFF) NO [id number] 20:21:00* Test Item Value Reference Range Interpretation Comments GLUBED (test code = GLUBED) 187 mg/dL 74-106 H [facility]adiene [facility]~ [id number] 12:35:00* Test Item Value Reference Range Interpretation Comments GLUBED (test code = GLUBED) 277 mg/dL 74-106 H Performed by certified butadiene convertor operator at [facility] BASIC METABOLIC [id number] 06:47:00* Test Item Value Reference Range Interpretation Comments SODIUM (test code = NA) 141 mmol/L 136-145 N POTASSIUM (test code = K) 4.9 mmol/L 3.5-5.1 N CHLORIDE (test code = CL) 102.0 mmol/L 98-107 N CARBON DIOXIDE (test code = CO2) 30.0 mmol/L 21-32 N ANION GAP (test code = GAP) 13.9 10-20 N GLUCOSE (test code = GLU) 201 mg/dL 74-106 H BLOOD UREA NITROGEN (test code = BUN) 26 mg/dL 7-18 H GLOMERULAR FILTRATION RATE (test code = GFR) > 60 mL/min >=60 Estimated GFR by using Modified MDRD formula.Chronic kidney disease is defined as either kidney damageor GFR <60 mL/min/1.73 m2 for >3 months. CREATININE (test code = CREAT) 0.90 mg/dL 0.7-1.3 N BUN/CREATININE RATIO (test code = BUN/CREA) 28.2 10-20 H CALCIUM (test code = CA) 9.0 mg/dL 8.5-10.1 N BASIC METABOLIC [id number] 06:32:00* Test Item Value Reference Range Interpretation Comments SODIUM (test code = NA) 141 mmol/L 136-145 N POTASSIUM (test code = K) 4.9 mmol/L 3.5-5.1 N CHLORIDE (test code = CL) 102.0 mmol/L 98-107 N CARBON DIOXIDE (test code = CO2) mmol/L 21-32 ANION GAP (test code = GAP) 10-20 GLUCOSE (test code = GLU) mg/dL 74-106 BLOOD UREA NITROGEN (test code = BUN) mg/dL 7-18 GLOMERULAR FILTRATION RATE (test code = GFR) mL/min >=60 CREATININE (test code = CREAT) mg/dL 0.7-1.3 BUN/CREATININE RATIO (test code = BUN/CREA) 10-20 CALCIUM (test code = CA) mg/dL 8.5-10.1 [id number] 05:39:00* Test Item Value Reference Range Interpretation Comments GLUBED (test code = GLUBED) 224 mg/dL 74-106 H Performed by certified butadiene convertor operator at [facility] [id number] 20:10:00* Test Item Value Reference Range Interpretation Comments GLUBED (test code = GLUBED) 148 mg/dL 74-106 H Performed by certified butadiene convertor operator at [facility] [id number] 17:42:00* Test Item Value Reference Range Interpretation Comments GLUBED (test code = GLUBED) 197 mg/dL 74-106 H Performed by certified butadiene convertor operator at [facility] [id number] 12:28:00* Test Item Value Reference Range Interpretation Comments GLUBED (test code = GLUBED) 195 mg/dL 74-106 H Performed by certified butadiene convertor [facility]~ BASIC METABOLIC [id number] 06:28:00* Test Item Value Reference Range Interpretation Comments SODIUM (test code = NA) 143 mmol/L 136-145 N POTASSIUM (test code = K) 4.6 mmol/L 3.5-5.1 N CHLORIDE (test code = CL) 105.0 mmol/L 98-107 N CARBON DIOXIDE (test code = CO2) 32.0 mmol/L 21-32 N ANION GAP (test code = GAP) 10.6 10-20 N GLUCOSE (test code = GLU) 148 mg/dL 74-106 H BLOOD UREA NITROGEN (test code = BUN) 27 mg/dL 7-18 H GLOMERULAR FILTRATION RATE (test code = GFR) > 60 mL/min >=60 Estimated GFR by using Modified MDRD formula.Chronic kidney disease is defined as either kidney damageor GFR <60 mL/min/1.73 m2 for >3 months. CREATININE (test code = CREAT) 0.80 mg/dL 0.7-1.3 N BUN/CREATININE RATIO (test code = BUN/CREA) 32.4 10-20 H CALCIUM (test code = CA) 9.5 mg/dL 8.5-10.1 N BASIC METABOLIC [id number] 06:22:00* Test Item Value Reference Range Interpretation Comments SODIUM (test code = NA) 143 mmol/L 136-145 N POTASSIUM (test code = K) 4.6 mmol/L 3.5-5.1 N CHLORIDE (test code = CL) 105.0 mmol/L 98-107 N CARBON DIOXIDE (test code = CO2) mmol/L 21-32 ANION GAP (test code = GAP) 10-20 GLUCOSE (test code = GLU) mg/dL 74-106 BLOOD UREA NITROGEN (test code = BUN) mg/dL 7-18 GLOMERULAR FILTRATION RATE (test code = GFR) mL/min >=60 CREATININE (test code = CREAT) mg/dL 0.7-1.3 BUN/CREATININE RATIO (test code = BUN/CREA) 10-20 CALCIUM (test code = CA) mg/dL 8.5-10.1 [id number] 05:40:00* Test Item Value Reference Range Interpretation Comments GLUBED (test code = GLUBED) 151 mg/dL 74-106 H Performed by certified butadiene convertor operator at [facility] - XR FOOT 2 VIEWS [id number] 23:04:00 FAX: Harinder Pozo [phone] [place]: [address] St: ADM FAX: Maikol Hendrickson [phone] Name: MARLEN NOLAND [facility] : 1945 Age/S: 73/M [address] [facility] Unit #: [id number] Loc: V.2073 [place] [address] Phys: Harinder Basilio Acct: [id number] Dis Date: Status: ADM IN PHONE #: [phone] Exam Date: 12/08/20181822 FAX #: [phone] Reason: heel pain,r/o foreign body EXAMS: CPT CODE: [id number] XR FO[place] [address] [place] [id number] Left foot 2 views Comparison study N [...] Cruz M.D. CC: Harinder Basilio; Maikol Hendrickson Tiara hnologist: RT Lashell(R Trnscrd Date/T rafael/By: 12/08/2018 (2304) : By: Terry Orig Print D/T: S: 9 (1784) PAGE 1 Signed Report [id number] 21:35:00* Test Item Value Reference Range Interpretation Comments GLUBED (test code = GLUBED) 287 mg/dL 74-106 H Performed by certified butadiene convertor operator at [facility] [id number] 17:58:00* Test Item Value Reference Range Interpretation Comments GLUBED (test code = GLUBED) 305 mg/dL 74-106 H Performed by certified butadiene convertor operator at [facility] [id number] 11:56:00* Test Item Value Reference Range Interpretation Comments GLUBED (test code = GLUBED) 358 mg/dL 74-106 H Performed by certified butadiene convertor operator at [facility] BASIC METABOLIC [id number] 08:04:00* Test Item Value Reference Range Interpretation Comments SODIUM (test code = NA) 142 mmol/L 136-145 N POTASSIUM (test code = K) 4.3 mmol/L 3.5-5.1 N CHLORIDE (test code = CL) 103.0 mmol/L 98-107 N CARBON DIOXIDE (test code = CO2) 32.0 mmol/L 21-32 N ANION GAP (test code = GAP) 11.3 10-20 N GLUCOSE (test code = GLU) 197 mg/dL 74-106 H BLOOD UREA NITROGEN (test code = BUN) 30 mg/dL 7-18 H GLOMERULAR FILTRATION RATE (test code = GFR) > 60 mL/min >=60 Estimated GFR by using Modified MDRD formula.Chronic kidney disease is defined as either kidney damageor GFR <60 mL/min/1.73 m2 for >3 months. CREATININE (test code = CREAT) 0.90 mg/dL 0.7-1.3 N BUN/CREATININE RATIO (test code = BUN/CREA) 33.4 10-20 H CALCIUM (test code = CA) 9.3 mg/dL 8.5-10.1 N BASIC METABOLIC [id number] 07:44:00* Test Item Value Reference Range Interpretation Comments SODIUM (test code = NA) 142 mmol/L 136-145 N POTASSIUM (test code = K) 4.3 mmol/L 3.5-5.1 N CHLORIDE (test code = CL) 103.0 mmol/L 98-107 N CARBON DIOXIDE (test code = CO2) mmol/L 21-32 ANION GAP (test code = GAP) 10-20 GLUCOSE (test code = GLU) mg/dL 74-106 BLOOD UREA NITROGEN (test code = BUN) mg/dL 7-18 GLOMERULAR FILTRATION RATE (test code = GFR) mL/min >=60 CREATININE (test code = CREAT) mg/dL 0.7-1.3 BUN/CREATININE RATIO (test code = BUN/CREA) 10-20 CALCIUM (test code = CA) mg/dL 8.5-10.1 [id number] 05:28:00* Test Item Value Reference Range Interpretation Comments GLUBED (test code = GLUBED) 201 mg/dL 74-106 H Performed by certified butadiene convertor operator at [facility] [id number] 01:16:00* Test Item Value Reference Range Interpretation Comments GLUBED (test code = GLUBED) 196 mg/dL 74-106 H Performed by certified butadiene convertor operator at [facility] [id number] 21:54:00* Test Item Value Reference Range Interpretation Comments GLUBED (test code = GLUBED) 247 mg/dL 74-106 H Performed by certified butadiene convertor operator at [facility] [id number] 17:41:00* Test Item Value Reference Range Interpretation Comments GLUBED (test code = GLUBED) 294 mg/dL 74-106 H Performed by certified butadiene convertor operator at [facility] [id number] 12:23:00* Test Item Value Reference Range Interpretation Comments GLUBED (test code = GLUBED) 173 mg/dL 74-106 H Performed by certified butadiene convertor operator at [facility] [id number] 06:25:00* Test Item Value Reference Range Interpretation Comments GLUBED (test code = GLUBED) 238 mg/dL 74-106 H Performed by certified butadiene convertor operator at [facility] BASIC METABOLIC [id number] 06:15:00* Test Item Value Reference Range Interpretation Comments SODIUM (test code = NA) 138 mmol/L 136-145 N POTASSIUM (test code = K) 4.2 mmol/L 3.5-5.1 N CHLORIDE (test code = CL) 100.0 mmol/L 98-107 N CARBON DIOXIDE (test code = CO2) 29.0 mmol/L 21-32 N ANION GAP (test code = GAP) 13.2 10-20 N GLUCOSE (test code = GLU) 254 mg/dL 74-106 H BLOOD UREA NITROGEN (test code = BUN) 30 mg/dL 7-18 H GLOMERULAR FILTRATION RATE (test code = GFR) > 60 mL/min >=60 Estimated GFR by using Modified MDRD formula.Chronic kidney disease is defined as either kidney damageor GFR <60 mL/min/1.73 m2 for >3 months. CREATININE (test code = CREAT) 1.00 mg/dL 0.7-1.3 N BUN/CREATININE RATIO (test code = BUN/CREA) 30.0 10-20 H CALCIUM (test code = CA) 9.0 mg/dL 8.5-10.1 N [id number] 06:15:00* Test Item Value Reference Range Interpretation Comments PHOSPHORUS (test code = PHOS) 2.9 mg/dL 2.5-4.9 N [id number] 06:15:00* Test Item Value Reference Range Interpretation Comments MAGNESIUM (test code = MAG) 1.8 mg/dL 1.8-2.4 N CALCIUM [id number] 06:15:00* Test Item Value Reference Range Interpretation Comments CALCIUM IONIZED (test code = ALIVIA) 1.24 mmol/L 1.12-1.32 N BASIC METABOLIC [id number] 06:09:00* Test Item Value Reference Range Interpretation Comments SODIUM (test code = NA) 138 mmol/L 136-145 N POTASSIUM (test code = K) 4.2 mmol/L 3.5-5.1 N CHLORIDE (test code = CL) 100.0 mmol/L 98-107 N CARBON DIOXIDE (test code = CO2) 29.0 mmol/L 21-32 N ANION GAP (test code = GAP) 13.2 10-20 N GLUCOSE (test code = GLU) 254 mg/dL 74-106 H BLOOD UREA NITROGEN (test code = BUN) 30 mg/dL 7-18 H GLOMERULAR FILTRATION RATE (test code = GFR) > 60 mL/min >=60 Estimated GFR by using Modified MDRD formula.Chronic kidney disease is defined as either kidney damageor GFR <60 mL/min/1.73 m2 for >3 months. CREATININE (test code = CREAT) 1.00 mg/dL 0.7-1.3 N BUN/CREATININE RATIO (test code = BUN/CREA) 30.0 10-20 H CALCIUM (test code = CA) 9.0 mg/dL 8.5-10.1 N [id number] 06:09:00* Test Item Value Reference Range Interpretation Comments PHOSPHORUS (test code = PHOS) 2.9 mg/dL 2.5-4.9 N [id number] 06:09:00* Test Item Value Reference Range Interpretation Comments MAGNESIUM (test code = MAG) 1.8 mg/dL 1.8-2.4 N CALCIUM [id number] 06:09:00* Test Item Value Reference Range Interpretation Comments CALCIUM IONIZED (test code = ALIVIA) mmol/L 1.12-1.32 BASIC METABOLIC [id number] 06:03:00* Test Item Value Reference Range Interpretation Comments SODIUM (test code = NA) 138 mmol/L 136-145 N POTASSIUM (test code = K) 4.2 mmol/L 3.5-5.1 N CHLORIDE (test code = CL) 100.0 mmol/L 98-107 N CARBON DIOXIDE (test code = CO2) mmol/L 21-32 ANION GAP (test code = GAP) 10-20 GLUCOSE (test code = GLU) mg/dL 74-106 BLOOD UREA NITROGEN (test code = BUN) mg/dL 7-18 GLOMERULAR FILTRATION RATE (test code = GFR) mL/min >=60 CREATININE (test code = CREAT) mg/dL 0.7-1.3 BUN/CREATININE RATIO (test code = BUN/CREA) 10-20 CALCIUM (test code = CA) mg/dL 8.5-10.1 [id number] 06:03:00* Test Item Value Reference Range Interpretation Comments PHOSPHORUS (test code = PHOS) mg/dL 2.5-4.9 [id number] 06:03:00* Test Item Value Reference Range Interpretation Comments MAGNESIUM (test code = MAG) mg/dL 1.8-2.4 CALCIUM [id number] 06:03:00* Test Item Value Reference Range Interpretation Comments CALCIUM IONIZED (test code = ALIVIA) mmol/L 1.12-1.32 [id number] 21:37:00* Test Item Value Reference Range Interpretation Comments GLUBED (test code = GLUBED) 158 mg/dL 74-106 H Performed by certified butadiene convertor operator at [facility] UR PROTEIN/CREATININE [id number] 19:51:00* Test Item Value Reference Range Interpretation Comments UR PROTEIN RANDOM (test code = PROTU) 16.0 mg/dL 0.0-11.9 H Protein levels may be falsely elevated in patients withelevated level of aminoglycoside antibiotics in CSF and inhighly concentrated urine specimens. If false elevation issuspected, contact lab for alternated testing technique. UR CREATININE RANDOM (test code = CREATU) 102.0 mg/dL 30-125 N PROTEIN/CREATININE RATIO (test code = P/CRATIO) 0.16 RATIO 0.0-0. 20 N UR PROTEIN/CREATININE [id number] 19:49:00* Test Item Value Reference Range Interpretation Comments UR PROTEIN RANDOM (test code = PROTU) 16.0 mg/dL 0.0-11.9 H Protein levels may be falsely elevated in patients withelevated level of aminoglycoside antibiotics in CSF and inhighly concentrated urine specimens. If false elevation issuspected, contact lab for alternated testing technique. UR CREATININE RANDOM (test code = CREATU) mg/dL 30-125 PROTEIN/CREATININE RATIO (test code = P/CRATIO) RATIO 0.0-0. 20 [id number] 18:54:00* Test Item Value Reference Range Interpretation Comments GLUBED (test code = GLUBED) 124 mg/dL 74-106 H Performed by certified butadiene convertor operator at [facility] [id number] 12:15:00* Test Item Value Reference Range Interpretation Comments GLUBED (test code = GLUBED) 249 mg/dL 74-106 H Performed by certified butadiene convertor operator at [facility] BASIC METABOLIC [id number] 10:56:00* Test Item Value Reference Range Interpretation Comments SODIUM (test code = NA) 142 mmol/L 136-145 N POTASSIUM (test code = K) 3.7 mmol/L 3.5-5.1 N CHLORIDE (test code = CL) 104.0 mmol/L 98-107 N CARBON DIOXIDE (test code = CO2) 30.0 mmol/L 21-32 N ANION GAP (test code = GAP) 11.7 10-20 N GLUCOSE (test code = GLU) 183 mg/dL 74-106 H BLOOD UREA NITROGEN (test code = BUN) 33 mg/dL 7-18 H GLOMERULAR FILTRATION RATE (test code = GFR) > 60 mL/min >=60 Estimated GFR by using Modified MDRD formula.Chronic kidney disease is defined as either kidney damageor GFR <60 mL/min/1.73 m2 for >3 months. CREATININE (test code = CREAT) 1.00 mg/dL 0.7-1.3 N BUN/CREATININE RATIO (test code = BUN/CREA) 33.0 10-20 H CALCIUM (test code = CA) 9.5 mg/dL 8.5-10.1 N COMPREHENSIVE METABOLIC [id number] 10:56:00* Test Item Value Reference Range Interpretation Comments TOTAL PROTEIN (test code = PROT) 7.3 gram/dL 6.4-8.2 N ALBUMIN (test code = ALB) 2.9 g/dL 3.4-5.0 L GLOBULIN (test code = GLOB) 4.4 gram/dL 2.7-4.2 H ALBUMIN/GLOBULIN RATIO (test code = A/G) 0.7 0.75-1.50 L BILIRUBIN TOTAL (test code = BILT) 0.20 mg/dL 0.0-1.0 N SGOT/AST (test code = AST) 11 IUnit/L 15-37 L SGPT/ALT (test code = ALT) 13 IUnit/L 12-78 N ALKALINE PHOSPHATASE TOTAL (test code = ALKP) 65 IUnit/L 45-117 N Note change in reference range due to change in reagent. [id number] 10:56:00* Test Item Value Reference Range Interpretation Comments PHOSPHORUS (test code = PHOS) 3.7 mg/dL 2.5-4.9 N [id number] 10:56:00* Test Item Value Reference Range Interpretation Comments MAGNESIUM (test code = MAG) 2.0 mg/dL 1.8-2.4 N CALCIUM [id number] 10:56:00* Test Item Value Reference Range Interpretation Comments CALCIUM IONIZED (test code = ALIVIA) 1.30 mmol/L 1.12-1.32 N BASIC METABOLIC [id number] 10:49:00* Test Item Value Reference Range Interpretation Comments SODIUM (test code = NA) 142 mmol/L 136-145 N POTASSIUM (test code = K) 3.7 mmol/L 3.5-5.1 N CHLORIDE (test code = CL) 104.0 mmol/L 98-107 N CARBON DIOXIDE (test code = CO2) mmol/L 21-32 ANION GAP (test code = GAP) 10-20 GLUCOSE (test code = GLU) mg/dL 74-106 BLOOD UREA NITROGEN (test code = BUN) mg/dL 7-18 GLOMERULAR FILTRATION RATE (test code = GFR) mL/min >=60 CREATININE (test code = CREAT) mg/dL 0.7-1.3 BUN/CREATININE RATIO (test code = BUN/CREA) 10-20 CALCIUM (test code = CA) mg/dL 8.5-10.1 COMPREHENSIVE METABOLIC [id number] 10:49:00* Test Item Value Reference Range Interpretation Comments TOTAL PROTEIN (test code = PROT) gram/dL 6.4-8.2 ALBUMIN (test code = ALB) g/dL 3.4-5.0 GLOBULIN (test code = GLOB) gram/dL 2.7-4.2 ALBUMIN/GLOBULIN RATIO (test code = A/G) 0.75-1.50 BILIRUBIN TOTAL (test code = BILT) mg/dL 0.0-1.0 SGOT/AST (test code = AST) IUnit/L 15-37 SGPT/ALT (test code = ALT) IUnit/L 12-78 ALKALINE PHOSPHATASE TOTAL (test code = ALKP) IUnit/L 45-117 [id number] 10:49:00* Test Item Value Reference Range Interpretation Comments PHOSPHORUS (test code = PHOS) mg/dL 2.5-4.9 [id number] 10:49:00* Test Item Value Reference Range Interpretation Comments MAGNESIUM (test code = MAG) mg/dL 1.8-2.4 CALCIUM [id number] 10:49:00* Test Item Value Reference Range Interpretation Comments CALCIUM IONIZED (test code = ALIVIA) 1.30 mmol/L 1.12-1.32 N BASIC METABOLIC [id number] 10:37:00* Test Item Value Reference Range Interpretation Comments SODIUM (test code = NA) mmol/L 136-145 POTASSIUM (test code = K) mmol/L 3.5-5.1 CHLORIDE (test code = CL) mmol/L 98-107 CARBON DIOXIDE (test code = CO2) mmol/L 21-32 ANION GAP (test code = GAP) 10-20 GLUCOSE (test code = GLU) mg/dL 74-106 BLOOD UREA NITROGEN (test code = BUN) mg/dL 7-18 GLOMERULAR FILTRATION RATE (test code = GFR) mL/min >=60 CREATININE (test code = CREAT) mg/dL 0.7-1.3 BUN/CREATININE RATIO (test code = BUN/CREA) 10-20 CALCIUM (test code = CA) mg/dL 8.5-10.1 COMPREHENSIVE METABOLIC [id number] 10:37:00* Test Item Value Reference Range Interpretation Comments TOTAL PROTEIN (test code = PROT) gram/dL 6.4-8.2 ALBUMIN (test code = ALB) g/dL 3.4-5.0 GLOBULIN (test code = GLOB) gram/dL 2.7-4.2 ALBUMIN/GLOBULIN RATIO (test code = A/G) 0.75-1.50 BILIRUBIN TOTAL (test code = BILT) mg/dL 0.0-1.0 SGOT/AST (test code = AST) IUnit/L 15-37 SGPT/ALT (test code = ALT) IUnit/L 12-78 ALKALINE PHOSPHATASE TOTAL (test code = ALKP) IUnit/L 45-117 [id number] 10:37:00* Test Item Value Reference Range Interpretation Comments PHOSPHORUS (test code = PHOS) mg/dL 2.5-4.9 [id number] 10:37:00* Test Item Value Reference Range Interpretation Comments MAGNESIUM (test code = MAG) mg/dL 1.8-2.4 CALCIUM [id number] 10:37:00* Test Item Value Reference Range Interpretation Comments CALCIUM IONIZED (test code = ALIVIA) 1.30 mmol/L 1.12-1.32 N CBC W/AUTO [id number] 10:12:00* Test Item Value Reference Range Interpretation Comments WHITE BLOOD CELL (test code = WBC) 6.9 K/mm3 4.5-12.5 N RED BLOOD CELL (test code = RBC) 3.48 mill/mm3 4.0-5.8 L HEMOGLOBIN (test code = HGB) 10.6 gram/dL 13.0-17.5 L HEMATOCRIT (test code = HCT) 32.7 % 42.0-52.0 L MEAN CELL VOLUME (test code = MCV) 94.0 fL 80-98 N MEAN CELL HGB (test code = MCH) 30.5 picogram 27.0-33.0 N MEAN CELL HGB CONCETRATION (test code = MCHC) 32.4 gram/dL 33.0-36. 0 L RED CELL DISTRIBUTION WIDTH (test code = RDW) 12.5 % 11.6-16. 2 N RED CELL DISTRIBUTION WIDTH SD (test code = RDW-SD) 42.5 fL 37 .0-51.0 N PLATELET COUNT (test code = PLT) 281 K/mm3 150-450 MEAN PLATELET VOLUME (test code = MPV) 10.1 fL 6.7-11.0 N NEUTROPHIL % (test code = NT%) 62.2 % 39.0-69.0 N IMMATURE GRANULOCYTE % (test code = IG%) 0.6 % 0.0-5.0 N LYMPHOCYTE % (test code = LY%) 24.1 % 25.0-55.0 L MONOCYTE % (test code = MO%) 9.0 % 0.0-10.0 N EOSINOPHIL % (test code = EO%) 3.2 % 0.0-5.0 N BASOPHIL % (test code = BA%) 0.9 % 0.0-1.0 N NUCLEATED RBC % (test code = NRBC%) 0.0 % 0-0 N NEUTROPHIL # (test code = NT#) 4.28 K/mm3 1.8-7.7 N IMMATURE GRANULOCYTE # (test code = IG#) 0.04 x10 3/uL 0-0.03 H LYMPHOCYTE # (test code = LY#) 1.66 K/mm3 1.0-5.0 N MONOCYTE # (test code = MO#) 0.62 K/mm3 0-0.8 N EOSINOPHIL # (test code = EO#) 0.22 K/mm3 0.0-0.5 N BASOPHIL # (test code = BA#) 0.06 K/mm3 0.0-0.2 N NUCLEATED RBC # (test code = NRBC#) 0.00 K/mm3 0.0-0.1 N MANUAL DIFF REQUIRED (test code = MDIFF) NO [id number] 07:19:00* Test Item Value Reference Range Interpretation Comments GLUBED (test code = GLUBED) 201 mg/dL 74-106 H Performed by certified butadiene convertor operator at [facility] [id number] 22:31:00* Test Item Value Reference Range Interpretation Comments GLUBED (test code = GLUBED) 157 mg/dL 74-106 H Performed by certified butadiene convertor operator at [facility] [id number] 16:27:00* Test Item Value Reference Range Interpretation Comments GLUBED (test code = GLUBED) 163 mg/dL 74-106 H Performed by certified butadiene convertor operator at [facility] - US RETRO [id number] 15:13:00 Name: MARLEN NOLAND [facility] : 1945 Age[facility]S: 73 [facility] [address] [facility]: [id number] Loc: [place] [address] Phys: Dhruv Whitehead MD Acct: [id number] Dis Date: Status: ADM IN PHONE #: [phone] Exam Date: 12/05/2018 1455 FAX #: [phone] Reason: eval size EXAMS: CPT CODE: [id number] US RETRO LTD [address]221 REASON FOR EXAM: eval size EXAM ORDER DATE: 12/05/2018 11:12 AM Attending M.Antonino: Dhruv Whitehead MD PROCEDURE: - US RETRO [...] M.D. CC: Dhruv Whitehead MD; Maikol Hendrickson [facility] Technologist: SAL ROBISON RT(R),RDNH Trnflb Date/Time: 12/05/2018 (1513) tMICH Orig Print D/T: S: 12/05/2018 (0937) Probe: PAGE 1 Signed Report [id number] 11:47:00* Test Item Value Reference Range Interpretation Comments GLUBED (test code = GLUBED) 186 mg/dL 74-106 H Performed by certified butadiene convertor operator at [facility] - XR CHEST 1 [id number] 10:13:00 FAX: Tonie Mcintosh NP [phone] [place]: B St: ADM FAX: Maikol Hendricksonh [phone] Name: MARLEN NOLAND [facility] : 1945 Age[facility]S: 73[facility] [address] [facility] #: [id number] Loc: V.S05 [place] [address] Phys: Tonie Mcintosh NP Acct: [id number] Dis Date: Status: ADM IN PHONE #: [phone] Exam Date: 12/05/2018 0948 FAX #: [phone] Reason: sob EXAMS: CPT CODE: [id number] XR CHEST 1 V 34500 REASON FOR EXAM: sob Exam Order Date: 12/05/2018 9:39 AM Ordering M.DCoral: Tonie Mcintosh NP PROCEDURE: - XR CHEST [...] by: Thor Davis MD CC: Miladys Mcintosh [employer]ADING [employer]ER; Maikol Hendrickson Technologist: Marsha Arnold( Madan) Trnscrd Date/Time/By: 12/05/2018 (1013) : B y: [email or web address] Orig Print D/T: S: 12/05/2018 (1016) PAGE 1 Signed Report [id number] 08:07:00* Test Item Value Reference Range Interpretation Comments GLUBED (test code = GLUBED) 176 mg/dL 74-106 H Performed by certified butadiene convertor operator at [facility] BASIC METABOLIC [id number] 06:36:00* Test Item Value Reference Range Interpretation Comments SODIUM (test code = NA) 141 mmol/L 136-145 N POTASSIUM (test code = K) 3.6 mmol/L 3.5-5.1 N CHLORIDE (test code = CL) 105.0 mmol/L 98-107 N CARBON DIOXIDE (test code = CO2) 30.0 mmol/L 21-32 N ANION GAP (test code = GAP) 9.6 10-20 L GLUCOSE (test code = GLU) 183 mg/dL 74-106 H BLOOD UREA NITROGEN (test code = BUN) 23 mg/dL 7-18 H GLOMERULAR FILTRATION RATE (test code = GFR) > 60 mL/min >=60 Estimated GFR by using Modified MDRD formula.Chronic kidney disease is defined as either kidney damageor GFR <60 mL/min/1.73 m2 for >3 months. CREATININE (test code = CREAT) 0.90 mg/dL 0.7-1.3 N BUN/CREATININE RATIO (test code = BUN/CREA) 25.1 10-20 H CALCIUM (test code = CA) 9.4 mg/dL 8.5-10.1 N COMPREHENSIVE METABOLIC [id number] 06:36:00* Test Item Value Reference Range Interpretation Comments TOTAL PROTEIN (test code = PROT) 6.9 gram/dL 6.4-8.2 N ALBUMIN (test code = ALB) 2.7 g/dL 3.4-5.0 L GLOBULIN (test code = GLOB) 4.2 gram/dL 2.7-4.2 N ALBUMIN/GLOBULIN RATIO (test code = A/G) 0.6 0.75-1.50 L BILIRUBIN TOTAL (test code = BILT) 0.30 mg/dL 0.0-1.0 N SGOT/AST (test code = AST) 15 IUnit/L 15-37 N SGPT/ALT (test code = ALT) 15 IUnit/L 12-78 N ALKALINE PHOSPHATASE TOTAL (test code = ALKP) 67 IUnit/L 45-117 N Note change in reference range due to change in reagent. [id number] 06:36:00* Test Item Value Reference Range Interpretation Comments PHOSPHORUS (test code = PHOS) 3.3 mg/dL 2.5-4.9 N [id number] 06:36:00* Test Item Value Reference Range Interpretation Comments MAGNESIUM (test code = MAG) 1.9 mg/dL 1.8-2.4 N CALCIUM [id number] 06:36:00* Test Item Value Reference Range Interpretation Comments CALCIUM IONIZED (test code = ALIVIA) 1.32 mmol/L 1.12-1.32 N BASIC METABOLIC [id number] 06:26:00* Test Item Value Reference Range Interpretation Comments SODIUM (test code = NA) 141 mmol/L 136-145 N POTASSIUM (test code = K) 3.6 mmol/L 3.5-5.1 N CHLORIDE (test code = CL) 105.0 mmol/L 98-107 N CARBON DIOXIDE (test code = CO2) mmol/L 21-32 ANION GAP (test code = GAP) 10-20 GLUCOSE (test code = GLU) mg/dL 74-106 BLOOD UREA NITROGEN (test code = BUN) mg/dL 7-18 GLOMERULAR FILTRATION RATE (test code = GFR) mL/min >=60 CREATININE (test code = CREAT) mg/dL 0.7-1.3 BUN/CREATININE RATIO (test code = BUN/CREA) 10-20 CALCIUM (test code = CA) mg/dL 8.5-10.1 COMPREHENSIVE METABOLIC [id number] 06:26:00* Test Item Value Reference Range Interpretation Comments TOTAL PROTEIN (test code = PROT) gram/dL 6.4-8.2 ALBUMIN (test code = ALB) g/dL 3.4-5.0 GLOBULIN (test code = GLOB) gram/dL 2.7-4.2 ALBUMIN/GLOBULIN RATIO (test code = A/G) 0.75-1.50 BILIRUBIN TOTAL (test code = BILT) mg/dL 0.0-1.0 SGOT/AST (test code = AST) IUnit/L 15-37 SGPT/ALT (test code = ALT) IUnit/L 12-78 ALKALINE PHOSPHATASE TOTAL (test code = ALKP) IUnit/L 45-117 [id number] 06:26:00* Test Item Value Reference Range Interpretation Comments PHOSPHORUS (test code = PHOS) mg/dL 2.5-4.9 [id number] 06:26:00* Test Item Value Reference Range Interpretation Comments MAGNESIUM (test code = MAG) mg/dL 1.8-2.4 CALCIUM [id number] 06:26:00* Test Item Value Reference Range Interpretation Comments CALCIUM IONIZED (test code = ALIVIA) 1.32 mmol/L 1.12-1.32 N BASIC METABOLIC [id number] 06:25:00* Test Item Value Reference Range Interpretation Comments SODIUM (test code = NA) 141 mmol/L 136-145 N POTASSIUM (test code = K) 3.6 mmol/L 3.5-5.1 N CHLORIDE (test code = CL) 105.0 mmol/L 98-107 N CARBON DIOXIDE (test code = CO2) mmol/L 21-32 ANION GAP (test code = GAP) 10-20 GLUCOSE (test code = GLU) mg/dL 74-106 BLOOD UREA NITROGEN (test code = BUN) mg/dL 7-18 GLOMERULAR FILTRATION RATE (test code = GFR) mL/min >=60 CREATININE (test code = CREAT) mg/dL 0.7-1.3 BUN/CREATININE RATIO (test code = BUN/CREA) 10-20 CALCIUM (test code = CA) mg/dL 8.5-10.1 COMPREHENSIVE METABOLIC [id number] 06:25:00* Test Item Value Reference Range Interpretation Comments TOTAL PROTEIN (test code = PROT) gram/dL 6.4-8.2 ALBUMIN (test code = ALB) g/dL 3.4-5.0 GLOBULIN (test code = GLOB) gram/dL 2.7-4.2 ALBUMIN/GLOBULIN RATIO (test code = A/G) 0.75-1.50 BILIRUBIN TOTAL (test code = BILT) mg/dL 0.0-1.0 SGOT/AST (test code = AST) IUnit/L 15-37 SGPT/ALT (test code = ALT) IUnit/L 12-78 ALKALINE PHOSPHATASE TOTAL (test code = ALKP) IUnit/L 45-117 [id number] 06:25:00* Test Item Value Reference Range Interpretation Comments PHOSPHORUS (test code = PHOS) mg/dL 2.5-4.9 [id number] 06:25:00* Test Item Value Reference Range Interpretation Comments MAGNESIUM (test code = MAG) mg/dL 1.8-2.4 CALCIUM [id number] 06:25:00* Test Item Value Reference Range Interpretation Comments CALCIUM IONIZED (test code = ALIVIA) mmol/L 1.12-1.32 CBC W/AUTO [id number] 06:06:00* Test Item Value Reference Range Interpretation Comments WHITE BLOOD CELL (test code = WBC) 7.3 K/mm3 4.5-12.5 N RED BLOOD CELL (test code = RBC) 3.31 mill/mm3 4.0-5.8 L HEMOGLOBIN (test code = HGB) 10.4 gram/dL 13.0-17.5 L HEMATOCRIT (test code = HCT) 30.9 % 42.0-52.0 L MEAN CELL VOLUME (test code = MCV) 93.4 fL 80-98 N MEAN CELL HGB (test code = MCH) 31.4 picogram 27.0-33.0 N MEAN CELL HGB CONCETRATION (test code = MCHC) 33.7 gram/dL 33.0-36. 0 N RED CELL DISTRIBUTION WIDTH (test code = RDW) 12.3 % 11.6-16. 2 N RED CELL DISTRIBUTION WIDTH SD (test code = RDW-SD) 42.5 fL 37 .0-51.0 N PLATELET COUNT (test code = PLT) 228 K/mm3 150-450 N MEAN PLATELET VOLUME (test code = MPV) 10.0 fL 6.7-11.0 N NEUTROPHIL % (test code = NT%) 69.9 % 39.0-69.0 H IMMATURE GRANULOCYTE % (test code = IG%) 0.6 % 0.0-5.0 N LYMPHOCYTE % (test code = LY%) 19.0 % 25.0-55.0 L MONOCYTE % (test code = MO%) 6.9 % 0.0-10.0 N EOSINOPHIL % (test code = EO%) 3.2 % 0.0-5.0 N BASOPHIL % (test code = BA%) 0.4 % 0.0-1.0 N NUCLEATED RBC % (test code = NRBC%) 0.0 % 0-0 N NEUTROPHIL # (test code = NT#) 5.07 K/mm3 1.8-7.7 N IMMATURE GRANULOCYTE # (test code = IG#) 0.04 x10 3/uL 0-0.03 H LYMPHOCYTE # (test code = LY#) 1.38 K/mm3 1.0-5.0 N MONOCYTE # (test code = MO#) 0.50 K/mm3 0-0.8 N EOSINOPHIL # (test code = EO#) 0.23 K/mm3 0.0-0.5 N BASOPHIL # (test code = BA#) 0.03 K/mm3 0.0-0.2 N NUCLEATED RBC # (test code = NRBC#) 0.00 K/mm3 0.0-0.1 N MANUAL DIFF REQUIRED (test code = MDIFF) NO [id number] 03:55:00* Test Item Value Reference Range Interpretation Comments GLUBED (test code = GLUBED) 242 mg/dL 74-106 H Performed by certified butadiene convertor operator at [facility] [id number] 15:07:00* Test Item Value Reference Range Interpretation Comments GLUBED (test code = GLUBED) 182 mg/dL 74-106 H Performed by certified butadiene convertor operator at [facility] [id number] 12:00:00* Test Item Value Reference Range Interpretation Comments GLUBED (test code = GLUBED) 190 mg/dL 74-106 H Performed by certified butadiene convertor operator at [facility] BASIC METABOLIC [id number] 07:21:00* Test Item Value Reference Range Interpretation Comments SODIUM (test code = NA) 140 mmol/L 136-145 N POTASSIUM (test code = K) 4.0 mmol/L 3.5-5.1 N CHLORIDE (test code = CL) 105.0 mmol/L 98-107 N CARBON DIOXIDE (test code = CO2) 27.0 mmol/L 21-32 N ANION GAP (test code = GAP) 12.0 10-20 N GLUCOSE (test code = GLU) 149 mg/dL 74-106 H BLOOD UREA NITROGEN (test code = BUN) 13 mg/dL 7-18 N GLOMERULAR FILTRATION RATE (test code = GFR) > 60 mL/min >=60 Estimated GFR by using Modified MDRD formula.Chronic kidney disease is defined as either kidney damageor GFR <60 mL/min/1.73 m2 for >3 months. CREATININE (test code = CREAT) 0.70 mg/dL 0.7-1.3 N BUN/CREATININE RATIO (test code = BUN/CREA) 18.2 10-20 N CALCIUM (test code = CA) 9.6 mg/dL 8.5-10.1 N COMPREHENSIVE METABOLIC [id number] 07:21:00* Test Item Value Reference Range Interpretation Comments TOTAL PROTEIN (test code = PROT) 6.5 gram/dL 6.4-8.2 N ALBUMIN (test code = ALB) 3.0 g/dL 3.4-5.0 L GLOBULIN (test code = GLOB) 3.5 gram/dL 2.7-4.2 N ALBUMIN/GLOBULIN RATIO (test code = A/G) 0.9 0.75-1.50 N BILIRUBIN TOTAL (test code = BILT) 0.60 mg/dL 0.0-1.0 N SGOT/AST (test code = AST) 25 IUnit/L 15-37 N SGPT/ALT (test code = ALT) 15 IUnit/L 12-78 N ALKALINE PHOSPHATASE TOTAL (test code = ALKP) 76 IUnit/L 45-117 N Note change in reference range due to change in reagent. [id number] 07:21:00* Test Item Value Reference Range Interpretation Comments PHOSPHORUS (test code = PHOS) 2.9 mg/dL 2.5-4.9 N [id number] 07:21:00* Test Item Value Reference Range Interpretation Comments MAGNESIUM (test code = MAG) 1.7 mg/dL 1.8-2.4 L CALCIUM [id number] 07:21:00* Test Item Value Reference Range Interpretation Comments CALCIUM IONIZED (test code = ALIVIA) 1.35 mmol/L 1.12-1.32 H BASIC METABOLIC [id number] 07:06:00* Test Item Value Reference Range Interpretation Comments SODIUM (test code = NA) 140 mmol/L 136-145 N POTASSIUM (test code = K) 4.0 mmol/L 3.5-5.1 N CHLORIDE (test code = CL) 105.0 mmol/L 98-107 N CARBON DIOXIDE (test code = CO2) mmol/L 21-32 ANION GAP (test code = GAP) 10-20 GLUCOSE (test code = GLU) mg/dL 74-106 BLOOD UREA NITROGEN (test code = BUN) mg/dL 7-18 GLOMERULAR FILTRATION RATE (test code = GFR) mL/min >=60 CREATININE (test code = CREAT) mg/dL 0.7-1.3 BUN/CREATININE RATIO (test code = BUN/CREA) 10-20 CALCIUM (test code = CA) mg/dL 8.5-10.1 COMPREHENSIVE METABOLIC [id number] 07:06:00* Test Item Value Reference Range Interpretation Comments TOTAL PROTEIN (test code = PROT) gram/dL 6.4-8.2 ALBUMIN (test code = ALB) g/dL 3.4-5.0 GLOBULIN (test code = GLOB) gram/dL 2.7-4.2 ALBUMIN/GLOBULIN RATIO (test code = A/G) 0.75-1.50 BILIRUBIN TOTAL (test code = BILT) mg/dL 0.0-1.0 SGOT/AST (test code = AST) IUnit/L 15-37 SGPT/ALT (test code = ALT) IUnit/L 12-78 ALKALINE PHOSPHATASE TOTAL (test code = ALKP) IUnit/L 45-117 [id number] 07:06:00* Test Item Value Reference Range Interpretation Comments PHOSPHORUS (test code = PHOS) mg/dL 2.5-4.9 [id number] 07:06:00* Test Item Value Reference Range Interpretation Comments MAGNESIUM (test code = MAG) mg/dL 1.8-2.4 CALCIUM [id number] 07:06:00* Test Item Value Reference Range Interpretation Comments CALCIUM IONIZED (test code = ALIVIA) 1.35 mmol/L 1.12-1.32 H BASIC METABOLIC [id number] 07:02:00* Test Item Value Reference Range Interpretation Comments SODIUM (test code = NA) mmol/L 136-145 POTASSIUM (test code = K) mmol/L 3.5-5.1 CHLORIDE (test code = CL) mmol/L 98-107 CARBON DIOXIDE (test code = CO2) mmol/L 21-32 ANION GAP (test code = GAP) 10-20 GLUCOSE (test code = GLU) mg/dL 74-106 BLOOD UREA NITROGEN (test code = BUN) mg/dL 7-18 GLOMERULAR FILTRATION RATE (test code = GFR) mL/min >=60 CREATININE (test code = CREAT) mg/dL 0.7-1.3 BUN/CREATININE RATIO (test code = BUN/CREA) 10-20 CALCIUM (test code = CA) mg/dL 8.5-10.1 COMPREHENSIVE METABOLIC [id number] 07:02:00* Test Item Value Reference Range Interpretation Comments TOTAL PROTEIN (test code = PROT) gram/dL 6.4-8.2 ALBUMIN (test code = ALB) g/dL 3.4-5.0 GLOBULIN (test code = GLOB) gram/dL 2.7-4.2 ALBUMIN/GLOBULIN RATIO (test code = A/G) 0.75-1.50 BILIRUBIN TOTAL (test code = BILT) mg/dL 0.0-1.0 SGOT/AST (test code = AST) IUnit/L 15-37 SGPT/ALT (test code = ALT) IUnit/L 12-78 ALKALINE PHOSPHATASE TOTAL (test code = ALKP) IUnit/L 45-117 [id number] 07:02:00* Test Item Value Reference Range Interpretation Comments PHOSPHORUS (test code = PHOS) mg/dL 2.5-4.9 [id number] 07:02:00* Test Item Value Reference Range Interpretation Comments MAGNESIUM (test code = MAG) mg/dL 1.8-2.4 CALCIUM [id number] 07:02:00* Test Item Value Reference Range Interpretation Comments CALCIUM IONIZED (test code = ALIVIA) 1.35 mmol/L 1.12-1.32 H CBC W/AUTO [id number] 06:31:00* Test Item Value Reference Range Interpretation Comments WHITE BLOOD CELL (test code = WBC) 10.3 K/mm3 4.5-12.5 N RED BLOOD CELL (test code = RBC) 3.46 mill/mm3 4.0-5.8 L HEMOGLOBIN (test code = HGB) 10.8 gram/dL 13.0-17.5 L HEMATOCRIT (test code = HCT) 32.2 % 42.0-52.0 L MEAN CELL VOLUME (test code = MCV) 93.1 fL 80-98 N MEAN CELL HGB (test code = MCH) 31.2 picogram 27.0-33.0 N MEAN CELL HGB CONCETRATION (test code = MCHC) 33.5 gram/dL 33.0-36. 0 N RED CELL DISTRIBUTION WIDTH (test code = RDW) 12.1 % 11.6-16. 2 N RED CELL DISTRIBUTION WIDTH SD (test code = RDW-SD) 41.1 fL 37 .0-51.0 N PLATELET COUNT (test code = PLT) 204 K/mm3 150-450 N MEAN PLATELET VOLUME (test code = MPV) 10.2 fL 6.7-11.0 N NEUTROPHIL % (test code = NT%) 82.0 % 39.0-69.0 H IMMATURE GRANULOCYTE % (test code = IG%) 0.5 % 0.0-5.0 N LYMPHOCYTE % (test code = LY%) 9.1 % 25.0-55.0 L MONOCYTE % (test code = MO%) 5.2 % 0.0-10.0 N EOSINOPHIL % (test code = EO%) 2.8 % 0.0-5.0 N BASOPHIL % (test code = BA%) 0.4 % 0.0-1.0 N NUCLEATED RBC % (test code = NRBC%) 0.0 % 0-0 N NEUTROPHIL # (test code = NT#) 8.48 K/mm3 1.8-7.7 H IMMATURE GRANULOCYTE # (test code = IG#) 0.05 x10 3/uL 0-0.03 H LYMPHOCYTE # (test code = LY#) 0.94 K/mm3 1.0-5.0 L MONOCYTE # (test code = MO#) 0.54 K/mm3 0-0.8 N EOSINOPHIL # (test code = EO#) 0.29 K/mm3 0.0-0.5 N BASOPHIL # (test code = BA#) 0.04 K/mm3 0.0-0.2 N NUCLEATED RBC # (test code = NRBC#) 0.00 K/mm3 0.0-0.1 N ARTERIAL BLOOD [id number] 12:49:00* Test Item Value Reference Range Interpretation Comments ARTERIAL BLOOD GAS PH (test code = PHA) 7.38 7.35-7.45 N ARTERIAL BLOOD GAS PCO2 (test code = PCO2A) 44.2 mm Hg 35-45 N ARTERIAL BLOOD GAS PO2 (test code = PO2A) 70.4 mmHg 80-100 L BICARBONATE TOTAL HCO3 (test code = HCO3) 25.5 mmol/L 23.0-27.0 N BASE EXCESS (test code = RHEA) 0.2 mmol/L -3.0-5.0 N ABG O2 SATURATION (test code = SATA) 94.0 % 90.0-98.0 N ABG TYPE (test code = TYPEA) Arterial FIO2 (test code = FIO2A) 40.0 ABG VENT MODE (test code = MODEA) VC+ ABG VENT RESP RATE (test code = RRA) 16.0 per min ABG TIDAL VOLUME (test code = TVA) 450.0 mL ABG PEEP (test code = PEEPA) 6.0 cmH2O ABG SITE (test code = SITEA) Lt RADIAL ARTERY MODIFIED ALLENS (test code = MODALL) Yes CHECK PERFORMED HEMATOCRIT (test code = HCT/ABG) 31 % 42-52 L TOTAL HGB (test code = THB) 10.7 gram/dL 13.0-17.5 L HGB O2 SAT (test code = HBOSAT) 93.3 % 94.00-98.00 L CARBOXYHEMOGLOBIN (test code = HOHGBT) 0.6 %totalHg 0.5-1.5 N METHEMOGLOBIN (test code = METHGB) 0.1 % 0.0-1.50 N O2 CONTENT (test code = O2CT) 14.1 % vol 18.0-22.0 L ARTERIAL BLOOD [id number] 11:42:00* Test Item Value Reference Range Interpretation Comments ARTERIAL BLOOD GAS PH (test code = PHA) 7.44 7.35-7.45 N ARTERIAL BLOOD GAS PCO2 (test code = PCO2A) 36.7 mm Hg 35-45 N ARTERIAL BLOOD GAS PO2 (test code = PO2A) 95.9 mmHg 80-100 N BICARBONATE TOTAL HCO3 (test code = HCO3) 24.5 mmol/L 23.0-27.0 N BASE EXCESS (test code = RHEA) 0.6 mmol/L -3.0-5.0 N ABG O2 SATURATION (test code = SATA) 96.8 % 90.0-98.0 N ABG TYPE (test code = TYPEA) Arterial FIO2 (test code = FIO2A) 40.0 ABG VENT MODE (test code = MODEA) CPAP ABG PEEP (test code = PEEPA) 6.0 cmH2O ABG PRESSURE SUPPORT (test code = PSABG) 7 cmH2O ABG SITE (test code = SITEA) Rt RADIAL ARTERY SODIUM (test code = NA/ABG) 134.0 mEq/L 135-148 L POTASSIUM (test code = K/ABG) 4.0 mEq/L 3.5-4.5 N CHLORIDE (test code = CL/ABG) 100 mEq/L 98-106 N GLUCOSE (test code = GLU/ABG) 170 mg/dL 74-99 H HEMATOCRIT (test code = HCT/ABG) 33 % 42-52 L IONIZED CALCIUM (test code = CAIABG) 1.16 mmol/L 1.1-1.37 N TOTAL HGB (test code = THB) 11.3 gram/dL 13.0-17.5 L HGB O2 SAT (test code = HBOSAT) 96.6 % 94.00-98.00 N CARBOXYHEMOGLOBIN (test code = HOHGBT) 0.2 %totalHg 0.5-1.5 LL Results called to and read back by jackie 11:40 - 12/03/2018; by simone kumari METHEMOGLOBIN (test code = METHGB) 0.0 % 0.0-1.50 N O2 CONTENT (test code = O2CT) 15.5 % vol 18.0-22.0 L - XR CHEST 1 [id number] 10:25:00 FAX: Tonie Mcintosh NP [phone] [place]: [address] St: ADM FAX: Maikol Hendrickson [facility] [phone] Name: MARLEN NOLAND [facility] : 1945 Age[facility]S: 73[facility] #: [id number] Loc: V[address], [place] [address] Phys: Tonie Mcintosh NP Acct: [id number] Dis Date: Status: ADM IN PHONE #: [phone] Exam Date: 12/03/2018 1003 FAX #: [phone] Reason: sob EXAMS: CPT CODE: [id number] XR CHEST 1 V [id number] REASON FOR EXAM: sob EXAM ORDER DATE: [...] by: Sundar Polk M.D. CC: Tonie Mcintosh NP; Maikol Hendrickson [facility] Technologist: HARRIETT PORTILLO (R) Trnscrd Date/Time/By: 12/03/2018 (102) : By: AmandaL Orig Print D/T: S: 12/03/2018 (3246) PAGE 1 Signed Report CBC W/AUTO [id number] 06:43:00* Test Item Value Reference Range Interpretation Comments WHITE BLOOD CELL (test code = WBC) 12.1 K/mm3 4.5-12.5 N RED BLOOD CELL (test code = RBC) 3.04 mill/mm3 4.0-5.8 L HEMOGLOBIN (test code = HGB) 9.3 gram/dL 13.0-17.5 L RESULT VERIFIED BY REPEAT ANALYSIS HEMATOCRIT (test code = HCT) 29.5 % 42.0-52.0 L MEAN CELL VOLUME (test code = MCV) 97.0 fL 80-98 N MEAN CELL HGB (test code = MCH) 30.6 picogram 27.0-33.0 N MEAN CELL HGB CONCETRATION (test code = MCHC) 31.5 gram/dL 33.0-36. 0 L RED CELL DISTRIBUTION WIDTH (test code = RDW) 12.5 % 11.6-16. 2 N RED CELL DISTRIBUTION WIDTH SD (test code = RDW-SD) 44.1 fL 37 .0-51.0 N PLATELET COUNT (test code = PLT) 174 K/mm3 150-450 RESULT VERIFIED BY REPEAT ANALYSIS MEAN PLATELET VOLUME (test code = MPV) 10.4 fL 6.7-11.0 N NEUTROPHIL % (test code = NT%) 85.0 % 39.0-69.0 H IMMATURE GRANULOCYTE % (test code = IG%) 0.6 % 0.0-5.0 N LYMPHOCYTE % (test code = LY%) 8.0 % 25.0-55.0 L MONOCYTE % (test code = MO%) 5.1 % 0.0-10.0 N EOSINOPHIL % (test code = EO%) 0.9 % 0.0-5.0 N BASOPHIL % (test code = BA%) 0.4 % 0.0-1.0 N NUCLEATED RBC % (test code = NRBC%) 0.0 % 0-0 N NEUTROPHIL # (test code = NT#) 10.26 K/mm3 1.8-7.7 H IMMATURE GRANULOCYTE # (test code = IG#) 0.07 x10 3/uL 0-0.03 H LYMPHOCYTE # (test code = LY#) 0.97 K/mm3 1.0-5.0 L MONOCYTE # (test code = MO#) 0.62 K/mm3 0-0.8 N EOSINOPHIL # (test code = EO#) 0.11 K/mm3 0.0-0.5 N BASOPHIL # (test code = BA#) 0.05 K/mm3 0.0-0.2 N NUCLEATED RBC # (test code = NRBC#) 0.00 K/mm3 0.0-0.1 N BASIC METABOLIC [id number] 06:11:00* Test Item Value Reference Range Interpretation Comments SODIUM (test code = NA) 140 mmol/L 136-145 N POTASSIUM (test code = K) 4.5 mmol/L 3.5-5.1 N CHLORIDE (test code = CL) 106.0 mmol/L 98-107 N CARBON DIOXIDE (test code = CO2) 26.0 mmol/L 21-32 N ANION GAP (test code = GAP) 12.5 10-20 N GLUCOSE (test code = GLU) 156 mg/dL 74-106 H BLOOD UREA NITROGEN (test code = BUN) 14 mg/dL 7-18 N GLOMERULAR FILTRATION RATE (test code = GFR) > 60 mL/min >=60 Estimated GFR by using Modified MDRD formula.Chronic kidney disease is defined as either kidney damageor GFR <60 mL/min/1.73 m2 for >3 months. CREATININE (test code = CREAT) 0.80 mg/dL 0.7-1.3 N BUN/CREATININE RATIO (test code = BUN/CREA) 16.5 10-20 N CALCIUM (test code = CA) 8.2 mg/dL 8.5-10.1 L [id number] 06:11:00* Test Item Value Reference Range Interpretation Comments PHOSPHORUS (test code = PHOS) 2.8 mg/dL 2.5-4.9 N [id number] 06:11:00* Test Item Value Reference Range Interpretation Comments MAGNESIUM (test code = MAG) 1.5 mg/dL 1.8-2.4 L BASIC METABOLIC [id number] 06:06:00* Test Item Value Reference Range Interpretation Comments SODIUM (test code = NA) 140 mmol/L 136-145 N POTASSIUM (test code = K) 4.5 mmol/L 3.5-5.1 N CHLORIDE (test code = CL) 106.0 mmol/L 98-107 N CARBON DIOXIDE (test code = CO2) mmol/L 21-32 ANION GAP (test code = GAP) 10-20 GLUCOSE (test code = GLU) mg/dL 74-106 BLOOD UREA NITROGEN (test code = BUN) mg/dL 7-18 GLOMERULAR FILTRATION RATE (test code = GFR) mL/min >=60 CREATININE (test code = CREAT) mg/dL 0.7-1.3 BUN/CREATININE RATIO (test code = BUN/CREA) 10-20 CALCIUM (test code = CA) mg/dL 8.5-10.1 [id number] 06:06:00* Test Item Value Reference Range Interpretation Comments PHOSPHORUS (test code = PHOS) mg/dL 2.5-4.9 [id number] 06:06:00* Test Item Value Reference Range Interpretation Comments MAGNESIUM (test code = MAG) mg/dL 1.8-2.4 - XR CHEST 1 [id number] 16:21:00 FAX: JAN LANDERS MD [place]: St: [facility] FAX: MadhaviMaikol Felicitas [facility] [phone] Name: MARLEN NOLAND [facility] : 1945 Age/S: 73/M [address] [facility] Unit #: [id number] Loc: [place] [address] Phys: JAN LANDERS MD Acct: [id number] Dis Date: Status: ADM IN PHONE #: [phone] Exam Date: 12/02/2018 1610 FAX #: [phone] Reason: POST OG TUBE PLACEMENT EXAMS: CPT CODE: [id number] XR CHEST 1 V 27803 REASON FOR EXAM: POST OG TUBE PLACEMENT EXAM ORDER DATE: 12/02/2018 3:59 PM Ordering Andrea: JAN LANDERS MD PROCEDURE: - XR CHEST [...] tube tip is in the stomach at 1621 Reported and signed by: Sundar Polk M.D. CC: JAN LANDERS MD; Makiol Hendrickson Technologist: NAKUL BRINK) Trnscrd Date/Time/By: 12/02/2018 (3911) : By: JaredVTL PAGE 1 Signed Report ARTERIAL BLOOD [id number] 07:49:00* Test Item Value Reference Range Interpretation Comments ARTERIAL BLOOD GAS PH (test code = PHA) 7.29 7.35-7.45 L ARTERIAL BLOOD GAS PCO2 (test code = PCO2A) 55.0 mm Hg 35-45 H ARTERIAL BLOOD GAS PO2 (test code = PO2A) 59.1 mmHg 80-100 L BICARBONATE TOTAL HCO3 (test code = HCO3) 25.9 mmol/L 23.0-27.0 N BASE EXCESS (test code = RHEA) -1.1 mmol/L -3.0-5.0 N ABG O2 SATURATION (test code = SATA) 89.0 % 90.0-98.0 L ABG TYPE (test code = TYPEA) Arterial FIO2 (test code = FIO2A) 100.0 ABG VENT MODE (test code = MODEA) BiPAP ABG VENT RESP RATE (test code = RRA) 15.0 per min ABG PEEP (test code = PEEPA) 12.0 cmH2O ABG TEMPERATURE (test code = TEMPA) 38.2 Celsius ABG SITE (test code = SITEA) Lt RADIAL ARTERY MODIFIED ALLENS (test code = MODALL) Yes CHECK PERFORMED HEMATOCRIT (test code = HCT/ABG) 30 % 42-52 L TOTAL HGB (test code = THB) 10.2 gram/dL 13.0-17.5 L HGB O2 SAT (test code = HBOSAT) 87.8 % 94.00-98.00 L CARBOXYHEMOGLOBIN (test code = HOHGBT) 0.8 %totalHg 0.5-1.5 N METHEMOGLOBIN (test code = METHGB) 0.5 % 0.0-1.50 N O2 CONTENT (test code = O2CT) 12.6 % vol 18.0-22.0 L A-A GRADIENT (test code = AAGRADE) 587.6 mm Hg - XR CHEST 1 [id number] 07:26:00 FAX: Tenke,Champ T DO [place]: St: [facility] FAX: Y Ottoniel Alonso [facility] [phone] Name: MARLEN NOLAND [facility] : 1945 Age/S: 73/M [address] [facility] Unit #: [id number] Loc: [place] [address] Phys: Ottoniel Alonso [facility] [employer] Acct: [id number] Dis Date: Status: REG ER PHONE #: [phone] Exam Date: 12/02/2018 0700 FAX #: [phone] Reason: intubation EXAMS: CPT CODE: [id number] XR CHEST 1 V 38604 CLINICAL HISTORY: intubation, altered mental status TECHNIQUE: AP chest x- ray COMPARISON: Previous day. IMPRESSION: ET tube positioned above the ny T2 level. Mildly improved bibasilar airspace opacification and atelectasis. No evident pleural effusion. Elevated right hemidiaphragm. Cardiomegaly. Atherosclerotic vascular calcification of the thoracic aorta. Sternotomy wires. at 0710 Reported and signed by: Netta Hidalgo D.O. CC: Champ Anna DO; Ottonile Alonso NP Technologist: Marsha Santos) Trnscrd Date/Time/By: 12/02/2018 (0751) : By: [email or web address] Orig Print D/T: S: 12/02/2018 (3766) PAGE 1 Signed Report ARTERIAL BLOOD [id number] 05:47:00* Test Item Value Reference Range Interpretation Comments ARTERIAL BLOOD GAS PH (test code = PHA) 7.30 7.35-7.45 L ARTERIAL BLOOD GAS PCO2 (test code = PCO2A) 54.8 mm Hg 35-45 H ARTERIAL BLOOD GAS PO2 (test code = PO2A) 121.3 mmHg 80-100 H BICARBONATE TOTAL HCO3 (test code = HCO3) 26.2 mmol/L 23.0-27.0 N BASE EXCESS (test code = RHEA) -0.8 mmol/L -3.0-5.0 N ABG O2 SATURATION (test code = SATA) 97.8 % 90.0-98.0 N ABG TYPE (test code = TYPEA) Arterial FIO2 (test code = FIO2A) 100.0 ABG SITE (test code = SITEA) Rt RADIAL ARTERY MODIFIED ALLENS (test code = MODALL) Yes CHECK PERFORMED SODIUM (test code = NA/ABG) 134.6 mEq/L 135-148 L POTASSIUM (test code = K/ABG) 5.2 mEq/L 3.5-4.5 H CHLORIDE (test code = CL/ABG) 104 mEq/L 98-106 N GLUCOSE (test code = GLU/ABG) 90 mg/dL 74-99 N HEMATOCRIT (test code = HCT/ABG) 31 % 42-52 L IONIZED CALCIUM (test code = CAIABG) 0.89 mmol/L 1.1-1.37 L TOTAL HGB (test code = THB) 10.5 gram/dL 13.0-17.5 L HGB O2 SAT (test code = HBOSAT) 96.8 % 94.00-98.00 N CARBOXYHEMOGLOBIN (test code = HOHGBT) 0.7 %totalHg 0.5-1.5 N METHEMOGLOBIN (test code = METHGB) 0.3 % 0.0-1.50 N O2 CONTENT (test code = O2CT) 14.5 % vol 18.0-22.0 L LACTIC [id number] 01:01:00* Test Item Value Reference Range Interpretation Comments LACTIC ACID (test code = LACT) 1.7 mmol/L 0.4-1.9 N - CT CHEST W/O [id number] 00:01:00 Name: MARLEN NOLAND [facility] : 1945 Age/S: 73 / M [address] [facility] Unit #: [id number] Loc: [place] [address] Phys: Maikol Hendrickson MD Acct: [id number] Dis Date: Status: REG ER PHONE #: [phone] Exam Date: 12/01/2018 2350 FAX #: [phone] Reason: PNEUMONIA EXAMS: CPT CODE: [id number] CT CHEST W/O CONTRAST 24443 HISTORY: Pneumonia TECHNIQUE: Axial tomograms through the [...] MD CC: Champ Anna DO; Maikol Hendrickson Technologist:MCKENNA FAYE, CTDI: DLP: Trnscb Date/Time: 12/03/19 19 (0001) t.SDR.RXC2 Orig Print D/T: S: 12/02/2018 (0005) PAGE 1 Signed Report URINALYSIS [id number] 23:57:00* Test Item Value Reference Range Interpretation Comments UA COLOR (test code = COLU) YELLOW YELLOW UA APPEARANCE (test code = APPU) Cloudy CLEAR A UA GLUCOSE DIPSTICK (test code = DGLUU) NEGATIVE mg/dL NEGATIVE UA BILIRUBIN DIPSTICK (test code = BILU) NEGATIVE mg/dL NEGATIVE UA KETONE DIPSTICK (test code = KETU) NEGATIVE mg/dL NEGATIVE UA SPECIFIC GRAVITY (test code = SGU) 1.014 1.001-1.035 UA BLOOD DIPSTICK (test code = SRINIVASAN) 0.03 mg/dL (Trace) mg/dL NEGATI VE A UA PH DIPSTICK (test code = ANAY) 6.0 5.0-8.0 UA PROTEIN DIPSTICK (test code = PROU) 30 (1+) mg/dL NEGATIVE A UA UROBILINIOGEN DIPSTICK (test code = URO) Normal mg/dL NEGATIVE UA NITRITE DIPSTICK (test code = RANDY) NEGATIVE NEGATIVE UA LEUKOCYTE ESTERASE W REFLEX (test code = LEUUR) 500 Kiya/u L (3+) Kiya/uL NEGATIVE A UA WBC (test code = WBCU) 151-200 per HPF 0-5 A UA RBC (test code = RBCU) 3-5 #/HPF 0-5 UA WBC CLUMPS (test code = WBCUCL) >10 /HPF NONE A UA EPITHELIAL CELLS (test code = EPIU) FEW per HPF FEW UA BACTERIA (test code = BACU) FEW #/HPF NONE A UA HYALINE CAST (test code = HYALU) 3-5 #/LPF 0-5 UA MUCUS (test code = MUCU) FEW #/LPF FEW Urine Source? Clean CatchURINALYSIS [id number] 23:54:00* Test Item Value Reference Range Interpretation Comments UA COLOR (test code = COLU) YELLOW YELLOW UA APPEARANCE (test code = APPU) Cloudy CLEAR A UA GLUCOSE DIPSTICK (test code = DGLUU) NEGATIVE mg/dL NEGATIVE UA BILIRUBIN DIPSTICK (test code = BILU) NEGATIVE mg/dL NEGATIVE UA KETONE DIPSTICK (test code = KETU) NEGATIVE mg/dL NEGATIVE UA SPECIFIC GRAVITY (test code = SGU) 1.014 1.001-1.035 UA BLOOD DIPSTICK (test code = SRINIVASAN) 0.03 mg/dL (Trace) mg/dL NEGATI VE A UA PH DIPSTICK (test code = ANAY) 6.0 5.0-8.0 UA PROTEIN DIPSTICK (test code = PROU) 30 (1+) mg/dL NEGATIVE A UA UROBILINIOGEN DIPSTICK (test code = URO) Normal mg/dL NEGATIVE UA NITRITE DIPSTICK (test code = RANDY) NEGATIVE NEGATIVE UA LEUKOCYTE ESTERASE W REFLEX (test code = LEUUR) 500 Kiya/u L (3+) Kiya/uL NEGATIVE A UA WBC (test code = WBCU) per HPF 0-5 UA RBC (test code = RBCU) per HPF 0-5 UA EPITHELIAL CELLS (test code = EPIU) per HPF Few UA BACTERIA (test code = BACU) per HPF NONE Urine Source? Clean CatchB-TYPE NATRIURETIC [id number] 22:28:00* Test Item Value Reference Range Interpretation Comments B-TYPE NATRIURETIC PEPTIDE (test code = BNP) 53.68 pgram/mL 0-100 N PROCALCITONIN (PCT)2018-12-01 22:19:00* Test Item Value Reference Range Interpretation Comments PROCALCITONIN (PCT) (test code = PROCAL) 0.11 ng/ml Concentration Interpretation (ng/mL) <0.51 Sepsis [...] taking into account the patients history. LACTIC [id number] 22:03:00* Test Item Value Reference Range Interpretation Comments LACTIC ACID (test code = LACT) 2.4 mmol/L 0.4-1.9 Results called to [id number] by V.[facility] 12/01/18 2203Critical results verified and read back by Nurse? Y BASIC METABOLIC [id number] 22:02:00* Test Item Value Reference Range Interpretation Comments SODIUM (test code = NA) 138 mmol/L 136-145 N POTASSIUM (test code = K) 4.8 mmol/L 3.5-5.1 N CHLORIDE (test code = CL) 100.0 mmol/L 98-107 N CARBON DIOXIDE (test code = CO2) 32.0 mmol/L 21-32 N ANION GAP (test code = GAP) 10.8 10-20 N GLUCOSE (test code = GLU) 115 mg/dL 74-106 H BLOOD UREA NITROGEN (test code = BUN) 22 mg/dL 7-18 H GLOMERULAR FILTRATION RATE (test code = GFR) 40 mL/min >=60 Estimated GFR by using Modified MDRD formula.Chronic kidney disease is defined as either kidney damageor GFR <60 mL/min/1.73 m2 for >3 months. CREATININE (test code = CREAT) 1.70 mg/dL 0.7-1.3 H BUN/CREATININE RATIO (test code = BUN/CREA) 12.9 10-20 N CALCIUM (test code = CA) 9.0 mg/dL 8.5-10.1 N HEPATIC FUNCTION [id number] 22:02:00* Test Item Value Reference Range Interpretation Comments TOTAL PROTEIN (test code = PROT) 7.7 gram/dL 6.4-8.2 N ALBUMIN (test code = ALB) 3.9 g/dL 3.4-5.0 N GLOBULIN (test code = GLOB) 3.8 gram/dL 2.7-4.2 N ALBUMIN/GLOBULIN RATIO (test code = A/G) 1.0 0.75-1.50 N BILIRUBIN TOTAL (test code = BILT) 0.30 mg/dL 0.0-1.0 N BILIRUBIN DIRECT (test code = BILD) 0.14 mg/dL 0.0-0.20 N SGOT/AST (test code = AST) 49 IUnit/L 15-37 H SGPT/ALT (test code = ALT) 20 IUnit/L 12-78 N ALKALINE PHOSPHATASE TOTAL (test code = ALKP) 86 IUnit/L 45-117 N Note change in reference range due to change in reagent. [id number] 22:02:00* Test Item Value Reference Range Interpretation Comments LIPASE (test code = LIP) 87 U/L 73.0-393.0 N [id number] 22:02:00* Test Item Value Reference Range Interpretation Comments TROPONIN-I (test code = TROPI) <0.015 ng/mL 0-0.045 N ARTERIAL BLOOD [id number] 22:01:00* Test Item Value Reference Range Interpretation Comments ARTERIAL BLOOD GAS PH (test code = PHA) 7.39 7.35-7.45 N ARTERIAL BLOOD GAS PCO2 (test code = PCO2A) 44.6 mm Hg 35-45 N ARTERIAL BLOOD GAS PO2 (test code = PO2A) 109.1 mmHg 80-100 H BICARBONATE TOTAL HCO3 (test code = HCO3) 26.6 mmol/L 23.0-27.0 N BASE EXCESS (test code = RHEA) 1.4 mmol/L -3.0-5.0 N ABG O2 SATURATION (test code = SATA) 97.8 % 90.0-98.0 N ABG TYPE (test code = TYPEA) Arterial FIO2 (test code = FIO2A) 100.0 ABG TEMPERATURE (test code = TEMPA) 40.6 Celsius ABG SITE (test code = SITEA) Lt RADIAL ARTERY MODIFIED ALLENS (test code = MODALL) Yes CHECK PERFORMED HEMATOCRIT (test code = HCT/ABG) 35 % 42-52 L TOTAL HGB (test code = THB) 11.9 gram/dL 13.0-17.5 L HGB O2 SAT (test code = HBOSAT) 94.8 % 94.00-98.00 N CARBOXYHEMOGLOBIN (test code = HOHGBT) 2.8 %totalHg 0.5-1.5 HH Results called to and read back by Lina 22:00 - 12/01/2018; by Morgan Chung RRT-MARQUEZ METHEMOGLOBIN (test code = METHGB) 0.3 % 0.0-1.50 N O2 CONTENT (test code = O2CT) 16.0 % vol 18.0-22.0 L A-A GRADIENT (test code = AAGRADE) 516.7 mm Hg [id number] 22:01:00* Test Item Value Reference Range Interpretation Comments AMMONIA (test code = AMM) < 10 umol/L 11-32 L - XR CHEST 1 [id number] 21:54:00 FAX: Champ Anna DO [place]: B St: REG Name: MARLEN RODGERS [facility] : [birth year] Age/S: 73/M [address] Unit #: [id number] Loc: [place] [address] Phys: Champ Anna DO Acct: [id number] Dis Date: Status: REG ER PHONE #: [phone] Exam Date: 12/01/20182132 FAX #: [phone] Reason: CODE SEPSIS EXAMS: CPT CODE: [id number] XR CHEST 1 V 66370 REASON FOR EXAM: CODE SEPSIS EXAM ORDER DATE: 12/01/2018 9:10 PM Ordering M.D.: Champ Anna DO PROCEDURE: - XR CHEST [...] Trnscrd Date/Time/By: 12/01/2018 (2153) : By: Roslyn LEE Orig Print D/T: S: 12/01/2018 (215) EZEQUIEL HERNANDEZ 1 Signed Report - CT HEAD/BRAIN W/O [id number] 21:49:00 Name: MARLEN NOLAND [facility] : 1945 Age/S: 73 / M [address] Unit #: [id number] Loc: [place] [address] Phys: Champ Anna DO Acct: [id number] Dis Date: Status: REG ER PHONE #: [phone] Exam Date: 12/01/20182132 FAX #: [phone] Reason: CODE SEPSIS EXAMS: CPT CODE: [id number] CT HEAD/BRAIN W/O CONT 39376 REASON FOR EXAM: CODE SEPSIS EXAM ORDER [...] calvarium is intact. IMPRESSION: Unremarkable brain. at 214 Reported and signed by: Sundar Polk M.D. CC: Champ Anna DO Technologist:RT JULIA(R) CT CTDI: DLP: Trnscb Date/Time: 12/01/2018 (2148) t.SDR.VTL Orig Print D/T: S: 12/01/2018 (0321) PAGE 1 Signed Report PROTHROMBIN [id number] 21:47:00* Test Item Value Reference Range Interpretation Comments PROTHROMBIN TIME PATIENT (test code = PTP) 11.9 seconds 9.0-14.0 N INTERNATIONAL NORMAL RATIO (test code = INR) 1.0 0.8-1.2 N The therapeutic range for oral anticoagulant therapy [...] (2.5-3.5) IS PATIENT ON ANTICOAGULANTS? NTHROMBOPLASTIN TIME [id number] 21:47:00* Test Item Value Reference Range Interpretation Comments THROMBOPLASTIN TIME PARTIAL (test code = PTT) 34.6 seconds 25.0-36. 5 N IS PATIENT ON ANTICOAGULANTS? NBASIC METABOLIC [id number] 21:42:00* Test Item Value Reference Range Interpretation Comments SODIUM (test code = NA) 138 mmol/L 136-145 N POTASSIUM (test code = K) 4.8 mmol/L 3.5-5.1 N CHLORIDE (test code = CL) 100.0 mmol/L 98-107 N CARBON DIOXIDE (test code = CO2) mmol/L 21-32 ANION GAP (test code = GAP) 10-20 GLUCOSE (test code = GLU) mg/dL 74-106 BLOOD UREA NITROGEN (test code = BUN) mg/dL 7-18 GLOMERULAR FILTRATION RATE (test code = GFR) mL/min >=60 CREATININE (test code = CREAT) mg/dL 0.7-1.3 BUN/CREATININE RATIO (test code = BUN/CREA) 10-20 CALCIUM (test code = CA) mg/dL 8.5-10.1 HEPATIC FUNCTION [id number] 21:42:00* Test Item Value Reference Range Interpretation Comments TOTAL PROTEIN (test code = PROT) gram/dL 6.4-8.2 ALBUMIN (test code = ALB) g/dL 3.4-5.0 GLOBULIN (test code = GLOB) gram/dL 2.7-4.2 ALBUMIN/GLOBULIN RATIO (test code = A/G) 0.75-1.50 BILIRUBIN TOTAL (test code = BILT) mg/dL 0.0-1.0 BILIRUBIN DIRECT (test code = BILD) mg/dL 0.0-0.20 SGOT/AST (test code = AST) IUnit/L 15-37 SGPT/ALT (test code = ALT) IUnit/L 12-78 ALKALINE PHOSPHATASE TOTAL (test code = ALKP) IUnit/L 45-117 [id number] 21:42:00* Test Item Value Reference Range Interpretation Comments LIPASE (test code = LIP) U/L 73.0-393.0 [id number] 21:42:00* Test Item Value Reference Range Interpretation Comments TROPONIN-I (test code = TROPI) ng/mL 0-0.045 CBC W/AUTO [id number] 21:37:00* Test Item Value Reference Range Interpretation Comments WHITE BLOOD CELL (test code = WBC) 11.9 K/mm3 4.5-12.5 N RED BLOOD CELL (test code = RBC) 3.87 mill/mm3 4.0-5.8 L HEMOGLOBIN (test code = HGB) 12.2 gram/dL 13.0-17.5 L HEMATOCRIT (test code = HCT) 38.1 % 42.0-52.0 L MEAN CELL VOLUME (test code = MCV) 98.4 fL 80-98 H MEAN CELL HGB (test code = MCH) 31.5 picogram 27.0-33.0 N MEAN CELL HGB CONCETRATION (test code = MCHC) 32.0 gram/dL 33.0-36. 0 L RED CELL DISTRIBUTION WIDTH (test code = RDW) 12.5 % 11.6-16. 2 N RED CELL DISTRIBUTION WIDTH SD (test code = RDW-SD) 45.1 fL 37 .0-51.0 N PLATELET COUNT (test code = PLT) 231 K/mm3 150-450 N MEAN PLATELET VOLUME (test code = MPV) 9.8 fL 6.7-11.0 N NEUTROPHIL % (test code = NT%) 74.5 % 39.0-69.0 H IMMATURE GRANULOCYTE % (test code = IG%) 0.4 % 0.0-5.0 N LYMPHOCYTE % (test code = LY%) 19.4 % 25.0-55.0 L MONOCYTE % (test code = MO%) 3.8 % 0.0-10.0 N EOSINOPHIL % (test code = EO%) 1.6 % 0.0-5.0 N BASOPHIL % (test code = BA%) 0.3 % 0.0-1.0 N NUCLEATED RBC % (test code = NRBC%) 0.0 % 0-0 N NEUTROPHIL # (test code = NT#) 8.85 K/mm3 1.8-7.7 H IMMATURE GRANULOCYTE # (test code = IG#) 0.05 x10 3/uL 0-0.03 H LYMPHOCYTE # (test code = LY#) 2.31 K/mm3 1.0-5.0 N MONOCYTE # (test code = MO#) 0.45 K/mm3 0-0.8 N EOSINOPHIL # (test code = EO#) 0.19 K/mm3 0.0-0.5 N BASOPHIL # (test code = BA#) 0.03 K/mm3 0.0-0.2 N NUCLEATED RBC # (test code = NRBC#) 0.00 K/mm3 0.0-0.1 N MANUAL DIFF REQUIRED (test code = MDIFF) NO [id number] 15:46:00* Test Item Value Reference Range Interpretation Comments GLUBED (test code = GLUBED) 182 mg/dL 74-106 H Performed by certified butadiene convertor operator at [facility] [id number] 12:25:00* Test Item Value Reference Range Interpretation Comments GLUBED (test code = GLUBED) 192 mg/dL 74-106 H Performed by certified butadiene convertor operator at [facility] LIPID PROFILE (CORONARY RISK)2018-11-22 11:25:00* Test Item Value Reference Range Interpretation Comments TRIGLYCERIDES (test code = TRIG) 133 mg/dL 20-150 N CHOLESTEROL (test code = CHOL) 118 mg/dL 0-200 N CHOLESTEROL/HDL RATIO (test code = CHOLHDL) 3.0 RATIO 0-4.9 N RISK ASSOCIATED WITH CHOL/HDL RATIOS: Risk Male Female1/2 AVERAGE 3.43 3.27AVERAGE 4.97 4.442X AVERAGE 9.55 7.053X AVERAGE 23.39 11.04 REFERENCE VALUE IS RELATED TO RISK LEVELS ASRECOMMENDED BY THE [facility]. HEART, LUNG, AND BLOOD INST. HDL CHOLESTEROL (test code = HDL) 39 mg/dL 40-60 L LIPOPROTEIN LDL (test code = LDL) 62 mg/dL 100-129 L Reference Interval: mg/dL mmol/L Optimal <100 <2.6Near/above optimal 100-129 2.6- 3.3Borderline High 130-159 3.4-4.1High 160-189 4.1-4.9Very High >=190 >=4.9========= This LDL result is a direct measurement.========= SPECIMEN COMMENTS: add to labsTHYROID STIMULATING [id number] 11:25:00* Test Item Value Reference Range Interpretation Comments THYROID STIMULATING HORMONE (test code = TSH) 1.240 uIU/mL 0.36-3.7 4 N TSH REFERENCE RANGES: EUTHYROID: 0.35 - 4.3 mIU/mL HYPO : > 5.5 mIU/mL HYPER : < 0.35 mIU/mL SPECIMEN COMMENTS: add to [id number] 08:10:00* Test Item Value Reference Range Interpretation Comments GLUBED (test code = GLUBED) 134 mg/dL 74-106 H Performed by certified butadiene convertor operator at [facility] [id number] 04:58:00* Test Item Value Reference Range Interpretation Comments GLYCOSYLATED HEMOGLOBIN (HA1C) (test code = GLYHGB) 7.4 % HbA1 4. 8-6.0 H ESTIMATED AVERAGE GLUCOSE (test code = EAG) 166 MG/DL COMPREHENSIVE METABOLIC [id number] 04:52:00* Test Item Value Reference Range Interpretation Comments SODIUM (test code = NA) 140 mmol/L 136-145 N POTASSIUM (test code = K) 4.3 mmol/L 3.5-5.1 N CHLORIDE (test code = CL) 106.0 mmol/L 98-107 N CARBON DIOXIDE (test code = CO2) 32.0 mmol/L 21-32 N ANION GAP (test code = GAP) 6.3 10-20 L GLUCOSE (test code = GLU) 168 mg/dL 74-106 H BLOOD UREA NITROGEN (test code = BUN) 19 mg/dL 7-18 H GLOMERULAR FILTRATION RATE (test code = GFR) > 60 mL/min >=60 Estimated GFR by using Modified MDRD formula.Chronic kidney disease is defined as either kidney damageor GFR <60 mL/min/1.73 m2 for >3 months. CREATININE (test code = CREAT) 1.00 mg/dL 0.7-1.3 N BUN/CREATININE RATIO (test code = BUN/CREA) 19.4 10-20 N TOTAL PROTEIN (test code = PROT) 6.8 gram/dL 6.4-8.2 N ALBUMIN (test code = ALB) 3.0 g/dL 3.4-5.0 L GLOBULIN (test code = GLOB) 3.8 gram/dL 2.7-4.2 N ALBUMIN/GLOBULIN RATIO (test code = A/G) 0.8 0.75-1.50 N CALCIUM (test code = CA) 9.2 mg/dL 8.5-10.1 N BILIRUBIN TOTAL (test code = BILT) 0.30 mg/dL 0.0-1.0 N SGOT/AST (test code = AST) 17 IUnit/L 15-37 N SGPT/ALT (test code = ALT) 16 IUnit/L 12-78 N ALKALINE PHOSPHATASE TOTAL (test code = ALKP) 61 IUnit/L 45-117 N Note change in reference range due to change in reagent. COMPREHENSIVE METABOLIC [id number] 04:45:00* Test Item Value Reference Range Interpretation Comments SODIUM (test code = NA) 140 mmol/L 136-145 N POTASSIUM (test code = K) 4.3 mmol/L 3.5-5.1 N CHLORIDE (test code = CL) 106.0 mmol/L 98-107 N CARBON DIOXIDE (test code = CO2) mmol/L 21-32 ANION GAP (test code = GAP) 10-20 GLUCOSE (test code = GLU) mg/dL 74-106 BLOOD UREA NITROGEN (test code = BUN) mg/dL 7-18 GLOMERULAR FILTRATION RATE (test code = GFR) mL/min >=60 CREATININE (test code = CREAT) mg/dL 0.7-1.3 BUN/CREATININE RATIO (test code = BUN/CREA) 10-20 TOTAL PROTEIN (test code = PROT) gram/dL 6.4-8.2 ALBUMIN (test code = ALB) g/dL 3.4-5.0 GLOBULIN (test code = GLOB) gram/dL 2.7-4.2 ALBUMIN/GLOBULIN RATIO (test code = A/G) 0.75-1.50 CALCIUM (test code = CA) mg/dL 8.5-10.1 BILIRUBIN TOTAL (test code = BILT) mg/dL 0.0-1.0 SGOT/AST (test code = AST) IUnit/L 15-37 SGPT/ALT (test code = ALT) IUnit/L 12-78 ALKALINE PHOSPHATASE TOTAL (test code = ALKP) IUnit/L 45-117 CBC W/AUTO [id number] 04:21:00* Test Item Value Reference Range Interpretation Comments WHITE BLOOD CELL (test code = WBC) 7.6 K/mm3 4.5-12.5 N RED BLOOD CELL (test code = RBC) 3.64 mill/mm3 4.0-5.8 L HEMOGLOBIN (test code = HGB) 11.4 gram/dL 13.0-17.5 L HEMATOCRIT (test code = HCT) 34.7 % 42.0-52.0 L MEAN CELL VOLUME (test code = MCV) 95.3 fL 80-98 N MEAN CELL HGB (test code = MCH) 31.3 picogram 27.0-33.0 N MEAN CELL HGB CONCETRATION (test code = MCHC) 32.9 gram/dL 33.0-36. 0 L RED CELL DISTRIBUTION WIDTH (test code = RDW) 12.2 % 11.6-16. 2 N RED CELL DISTRIBUTION WIDTH SD (test code = RDW-SD) 42.4 fL 37 .0-51.0 N PLATELET COUNT (test code = PLT) 250 K/mm3 150-450 N MEAN PLATELET VOLUME (test code = MPV) 9.7 fL 6.7-11.0 N NEUTROPHIL % (test code = NT%) 58.8 % 39.0-69.0 N IMMATURE GRANULOCYTE % (test code = IG%) 0.1 % 0.0-5.0 N LYMPHOCYTE % (test code = LY%) 31.4 % 25.0-55.0 N MONOCYTE % (test code = MO%) 6.2 % 0.0-10.0 N EOSINOPHIL % (test code = EO%) 2.8 % 0.0-5.0 N BASOPHIL % (test code = BA%) 0.7 % 0.0-1.0 N NUCLEATED RBC % (test code = NRBC%) 0.0 % 0-0 N NEUTROPHIL # (test code = NT#) 4.46 K/mm3 1.8-7.7 N IMMATURE GRANULOCYTE # (test code = IG#) 0.01 x10 3/uL 0-0.03 N LYMPHOCYTE # (test code = LY#) 2.38 K/mm3 1.0-5.0 N MONOCYTE # (test code = MO#) 0.47 K/mm3 0-0.8 N EOSINOPHIL # (test code = EO#) 0.21 K/mm3 0.0-0.5 N BASOPHIL # (test code = BA#) 0.05 K/mm3 0.0-0.2 N NUCLEATED RBC # (test code = NRBC#) 0.00 K/mm3 0.0-0.1 N MANUAL DIFF REQUIRED (test code = MDIFF) NO [id number] 20:53:00* Test Item Value Reference Range Interpretation Comments GLUBED (test code = GLUBED) 117 mg/dL 74-106 H Performed by certified butadiene convertor operator at [facility] [id number] 16:59:00* Test Item Value Reference Range Interpretation Comments GLUBED (test code = GLUBED) 181 mg/dL 74-106 H Performed [facility] [id number] 13:18:00* Test Item Value Reference Range Interpretation Comments MAGNESIUM (test code = MAG) 2.0 mg/dL 1.8-2.4 N [id number] 13:18:00* Test Item Value Reference Range Interpretation Comments PHOSPHORUS (test code = PHOS) 3.0 mg/dL 2.5-4.9 N [id number] 12:12:00* Test Item Value Reference Range Interpretation Comments GLUBED (test code = GLUBED) 203 mg/dL 74-106 H Per[facility]ene [facility] [id number] 08:14:00* Test Item Value Reference Range Interpretation Comments GLUBED (test code = GLUBED) 103 mg/dL 74-106 N [facility] [id number] 20:59:00* Test Item Value Reference Range Interpretation Comments GLUBED (test code = GLUBED) 125 mg/dL 74-106 H Performed by certified butadiene convertor operator at [facility] [id number] 16:42:00* Test Item Value Reference Range Interpretation Comments GLUBED (test code = GLUBED) 235 mg/dL 74-106 H Performed by certified [facility]adiene convertor [facility] [id number] 12:14:00* Test Item Value Reference Range Interpretation Comments GLUBED (test code = GLUBED) 217 mg/dL 74-106 H Per[facility] by certified [facility]adiene convert[facility] [id number] 08:32:00* Test Item Value Reference Range Interpretation Comments GLUBED (test code = GLUBED) 141 mg/dL 74-106 H Performed by certified butadiene convertor operator at [facility] BASIC METABOLIC [id number] 05:59:00* Test Item Value Reference Range Interpretation Comments SODIUM (test code = NA) 143 mmol/L 136-145 N POTASSIUM (test code = K) 4.1 mmol/L 3.5-5.1 N CHLORIDE (test code = CL) 108.0 mmol/L 98-107 H CARBON DIOXIDE (test code = CO2) 31.0 mmol/L 21-32 N ANION GAP (test code = GAP) 8.1 10-20 L GLUCOSE (test code = GLU) 137 mg/dL 74-106 H BLOOD UREA NITROGEN (test code = BUN) 11 mg/dL 7-18 N GLOMERULAR FILTRATION RATE (test code = GFR) > 60 mL/min >=60 Estimated GFR by using Modified MDRD formula.Chronic kidney disease is defined as either kidney damageor GFR <60 mL/min/1.73 m2 for >3 months. CREATININE (test code = CREAT) 0.80 mg/dL 0.7-1.3 N BUN/CREATININE RATIO (test code = BUN/CREA) 14.1 10-20 N CALCIUM (test code = CA) 8.8 mg/dL 8.5-10.1 N CBC W/AUTO [id number] 05:28:00* Test Item Value Reference Range Interpretation Comments WHITE BLOOD CELL (test code = WBC) 8.0 K/mm3 4.5-12.5 N RED BLOOD CELL (test code = RBC) 3.72 mill/mm3 4.0-5.8 L HEMOGLOBIN (test code = HGB) 11.6 gram/dL 13.0-17.5 L HEMATOCRIT (test code = HCT) 35.4 % 42.0-52.0 L MEAN CELL VOLUME (test code = MCV) 95.2 fL 80-98 N MEAN CELL HGB (test code = MCH) 31.2 picogram 27.0-33.0 N MEAN CELL HGB CONCETRATION (test code = MCHC) 32.8 gram/dL 33.0-36. 0 L RED CELL DISTRIBUTION WIDTH (test code = RDW) 12.1 % 11.6-16. 2 N RED CELL DISTRIBUTION WIDTH SD (test code = RDW-SD) 42.7 fL 37 .0-51.0 N PLATELET COUNT (test code = PLT) 291 K/mm3 150-450 N MEAN PLATELET VOLUME (test code = MPV) 9.5 fL 6.7-11.0 N NEUTROPHIL % (test code = NT%) 65.3 % 39.0-69.0 N IMMATURE GRANULOCYTE % (test code = IG%) 0.3 % 0.0-5.0 N LYMPHOCYTE % (test code = LY%) 26.2 % 25.0-55.0 N MONOCYTE % (test code = MO%) 6.3 % 0.0-10.0 N EOSINOPHIL % (test code = EO%) 1.4 % 0.0-5.0 N BASOPHIL % (test code = BA%) 0.5 % 0.0-1.0 N NUCLEATED RBC % (test code = NRBC%) 0.0 % 0-0 N NEUTROPHIL # (test code = NT#) 5.22 K/mm3 1.8-7.7 N IMMATURE GRANULOCYTE # (test code = IG#) 0.02 x10 3/uL 0-0.03 N LYMPHOCYTE # (test code = LY#) 2.09 K/mm3 1.0-5.0 N MONOCYTE # (test code = MO#) 0.50 K/mm3 0-0.8 N EOSINOPHIL # (test code = EO#) 0.11 K/mm3 0.0-0.5 N BASOPHIL # (test code = BA#) 0.04 K/mm3 0.0-0.2 N NUCLEATED RBC # (test code = NRBC#) 0.00 K/mm3 0.0-0.1 N [id number] 20:57:00* Test Item Value Reference Range Interpretation Comments GLUBED (test code = GLUBED) 101 mg/dL 74-106 N Performed by certified butadiene convertor operator at [facility] [id number] 16:10:00* Test Item Value Reference Range Interpretation Comments GLUBED (test code = GLUBED) 147 mg/dL 74-106 H Performed by certified butadiene convertor operator at [facility] [id number] 12:15:00* Test Item Value Reference Range Interpretation Comments GLUBED (test code = GLUBED) 183 mg/dL 74-106 H Performed by certified butadiene convertor operator at [facility] [id number] 10:23:00* Test Item Value Reference Range Interpretation Comments GLUBED (test code = GLUBED) 124 mg/dL 74-106 H Performed by certified butadiene convertor operator at [facility] - CT HEAD/BRAIN W/O [id number] 03:44:00 Name: MARLEN NOLAND [facility] : 1945 Age/S: 73 / M [address] [facility] Unit #: [id number] Loc: [place] [address] Phys: Celina Camarena MD Acct: [id number] Dis Date: Status: ADM IN PHONE #: [phone] Exam Date: 11/19/2018 0324 FAX #: [phone] Reason: UNRESPONSIVE EXAMS: CPT CODE: [id number] CT HEAD/BRAIN W/O CONT 12830 AFTER HOURS SERVICE ON: 11/19/2018 3:42 AM [...] signed by: Jan Schneider M.D. CC: Ryan Hendrickson; Celina Camarena MD Technologist:Madan Quintero(R)(CT) CTDI: DLP: Trnscb Date/Time: 11/19/2018 (034) Norman [email or web address] Orig Print D/T: S: 11/19/2018 (0347) PAGE 1 Signed Report [id number] 02:35:00* Test Item Value Reference Range Interpretation Comments GLUBED (test code = GLUBED) 122 mg/dL 74-106 H Performed by certified butadiene convertor operator at [facility] [id number] 20:52:00* Test Item Value Reference Range Interpretation Comments GLUBED (test code = GLUBED) 133 mg/dL 74-106 H Performed by certified butadiene convertor operator [facility] [id number] 17:42:00* Test Item Value Reference Range Interpretation Comments GLUBED (test code = GLUBED) 124 mg/dL 74-106 H Performed by certified butadiene convertor operator at [facility] [id number] 16:55:00* Test Item Value Reference Range Interpretation Comments GLUBED (test code = GLUBED) 115 mg/dL 74-106 H Performed by certified butadiene convertor operator at [facility] [id number] 12:02:00* Test Item Value Reference Range Interpretation Comments GLUBED (test code = GLUBED) 213 mg/dL 74-106 H Performed by certified butadiene convertor operator at [facility] [id number] 05:39:00* Test Item Value Reference Range Interpretation Comments GLUBED (test code = GLUBED) 171 mg/dL 74-106 H Performed by certified butadiene convertor operator at [facility] BASIC METABOLIC [id number] 05:24:00* Test Item Value Reference Range Interpretation Comments SODIUM (test code = NA) 142 mmol/L 136-145 N POTASSIUM (test code = K) 4.4 mmol/L 3.5-5.1 N CHLORIDE (test code = CL) 109.0 mmol/L 98-107 H CARBON DIOXIDE (test code = CO2) 29.0 mmol/L 21-32 N ANION GAP (test code = GAP) 8.4 10-20 L GLUCOSE (test code = GLU) 168 mg/dL 74-106 H BLOOD UREA NITROGEN (test code = BUN) 15 mg/dL 7-18 N GLOMERULAR FILTRATION RATE (test code = GFR) > 60 mL/min >=60 Estimated GFR by using Modified MDRD formula.Chronic kidney disease is defined as either kidney damageor GFR <60 mL/min/1.73 m2 for >3 months. CREATININE (test code = CREAT) 0.90 mg/dL 0.7-1.3 N BUN/CREATININE RATIO (test code = BUN/CREA) 16.7 10-20 N CALCIUM (test code = CA) 8.7 mg/dL 8.5-10.1 N BASIC METABOLIC [id number] 05:18:00* Test Item Value Reference Range Interpretation Comments SODIUM (test code = NA) 142 mmol/L 136-145 N POTASSIUM (test code = K) 4.4 mmol/L 3.5-5.1 N CHLORIDE (test code = CL) 109.0 mmol/L 98-107 H CARBON DIOXIDE (test code = CO2) mmol/L 21-32 ANION GAP (test code = GAP) 10-20 GLUCOSE (test code = GLU) mg/dL 74-106 BLOOD UREA NITROGEN (test code = BUN) mg/dL 7-18 GLOMERULAR FILTRATION RATE (test code = GFR) mL/min >=60 CREATININE (test code = CREAT) mg/dL 0.7-1.3 BUN/CREATININE RATIO (test code = BUN/CREA) 10-20 CALCIUM (test code = CA) mg/dL 8.5-10.1 CBC W/AUTO [id number] 05:18:00* Test Item Value Reference Range Interpretation Comments WHITE BLOOD CELL (test code = WBC) 7.8 K/mm3 4.5-12.5 N RED BLOOD CELL (test code = RBC) 3.39 mill/mm3 4.0-5.8 L HEMOGLOBIN (test code = HGB) 10.7 gram/dL 13.0-17.5 L HEMATOCRIT (test code = HCT) 33.5 % 42.0-52.0 L MEAN CELL VOLUME (test code = MCV) 98.8 fL 80-98 H MEAN CELL HGB (test code = MCH) 31.6 picogram 27.0-33.0 N MEAN CELL HGB CONCETRATION (test code = MCHC) 31.9 gram/dL 33.0-36. 0 L RED CELL DISTRIBUTION WIDTH (test code = RDW) 12.8 % 11.6-16. 2 N RED CELL DISTRIBUTION WIDTH SD (test code = RDW-SD) 46.3 fL 37 .0-51.0 N PLATELET COUNT (test code = PLT) 297 K/mm3 150-450 RESULT VERIFIED BY REPEAT ANALYSIS MEAN PLATELET VOLUME (test code = MPV) 9.8 fL 6.7-11.0 N NEUTROPHIL % (test code = NT%) 66.4 % 39.0-69.0 N IMMATURE GRANULOCYTE % (test code = IG%) 0.8 % 0.0-5.0 N LYMPHOCYTE % (test code = LY%) 23.3 % 25.0-55.0 L MONOCYTE % (test code = MO%) 6.6 % 0.0-10.0 N EOSINOPHIL % (test code = EO%) 2.1 % 0.0-5.0 N BASOPHIL % (test code = BA%) 0.8 % 0.0-1.0 N NUCLEATED RBC % (test code = NRBC%) 0.0 % 0-0 N NEUTROPHIL # (test code = NT#) 5.17 K/mm3 1.8-7.7 N IMMATURE GRANULOCYTE # (test code = IG#) 0.06 x10 3/uL 0-0.03 H LYMPHOCYTE # (test code = LY#) 1.81 K/mm3 1.0-5.0 N MONOCYTE # (test code = MO#) 0.51 K/mm3 0-0.8 N EOSINOPHIL # (test code = EO#) 0.16 K/mm3 0.0-0.5 N BASOPHIL # (test code = BA#) 0.06 K/mm3 0.0-0.2 N NUCLEATED RBC # (test code = NRBC#) 0.00 K/mm3 0.0-0.1 N - XR FOOT 2 VIEWS [id number] 22:02:00 FAX: Ced Carrera DPM [phone] [place]: St: [facility] FAX: MadhaviMaikol Polk Raman [phone] Name: MARLEN NOLAND [facility] : 1945 Age/S: 73/M [address] [facility] Unit #: [id number] Loc: [place] [address] Phys: Ced Thomas DPM Acct: [id number] Dis Date: Status: ADM IN PHONE #: [phone] Exam Date: 11/17/20182144 FAX #: [phone] Reason: GREAT TOE EXAMS: CPT CODE: [id number] XR FOOT [address] [place] [address] CLINICAL HISTORY: GREAT TOE TECHNIQUE: AP, oblique, [...] MD CC: Ced Thomas DPM; Maikol Hendrickson Raman Technologi st: Marlen PORTILLO(R); Tasha Arnold(R) Trnscrd Date/Time/By: 11/17/2018 (2201) : By: [email or web address] Orig Print D/T: S: 11/17/2018 (2204) PAGE 1 Signed Report [id number] 20:46:00* Test Item Value Reference Range Interpretation Comments GLUBED (test code = GLUBED) 102 mg/dL 74-106 N Performed by certified butadiene convertor operator at [facility] [id number] 17:06:00* Test Item Value Reference Range Interpretation Comments GLUBED (test code = GLUBED) 318 mg/dL 74-106 H Performed by certified butadiene convertor operator at [facility] [id number] 14:13:00* Test Item Value Reference Range Interpretation Comments TROPONIN-I (test code = TROPI) <0.015 ng/mL 0-0.045 N COMMENTS TO FIRST AID INSTRUCTOR: COLLECT 3 HOURS AFTER PREVIOUS [id number] 12:47:00* Test Item Value Reference Range Interpretation Comments GLUBED (test code = GLUBED) 140 mg/dL 74-106 H Performed by certified butadiene convertor operator at [facility] [id number] 09:29:00* Test Item Value Reference Range Interpretation Comments TROPONIN-I (test code = TROPI) <0.015 ng/mL 0-0.045 N COMMENTS TO FIRST AID INSTRUCTOR: COLLECT 3 HOURS AFTER PREVIOUS [id number] 07:42:00* Test Item Value Reference Range Interpretation Comments GLUBED (test code = GLUBED) 243 mg/dL 74-106 H Performed by certified butadiene convertor operator at [facility] [id number] 07:42:00* Test Item Value Reference Range Interpretation Comments GLUBED (test code = GLUBED) 493 mg/dL 74-106 H Performed by certified butadiene convertor operator at [facility] URINALYSIS [id number] 01:45:00* Test Item Value Reference Range Interpretation Comments UA COLOR (test code = COLU) Light-Yellow YELLOW UA APPEARANCE (test code = APPU) Cloudy CLEAR A UA GLUCOSE DIPSTICK (test code = DGLUU) NEGATIVE mg/dL NEGATIVE UA BILIRUBIN DIPSTICK (test code = BILU) NEGATIVE mg/dL NEGATIVE UA KETONE DIPSTICK (test code = KETU) NEGATIVE mg/dL NEGATIVE UA SPECIFIC GRAVITY (test code = SGU) 1.007 1.001-1.035 UA BLOOD DIPSTICK (test code = SRINIVASAN) Negative mg/dL NEGATIVE UA PH DIPSTICK (test code = ANAY) 5.5 5.0-8.0 UA PROTEIN DIPSTICK (test code = PROU) NEGATIVE mg/dL NEGATIVE UA UROBILINIOGEN DIPSTICK (test code = URO) Normal mg/dL NEGATIVE UA NITRITE DIPSTICK (test code = RANDY) NEGATIVE NEGATIVE UA LEUKOCYTE ESTERASE W REFLEX (test code = LEUUR) 250 Kiya/u L (2+) Kiya/uL NEGATIVE A UA WBC (test code = WBCU) 6-10 per HPF 0-5 A UA RBC (test code = RBCU) 0-2 #/HPF 0-5 UA WBC CLUMPS (test code = WBCUCL) 3-6 /HPF NONE A UA EPITHELIAL CELLS (test code = EPIU) FEW per HPF FEW UA BACTERIA (test code = BACU) FEW #/HPF NONE A UA HYALINE CAST (test code = HYALU) 6-10 #/LPF 0-5 A UA MUCUS (test code = MUCU) FEW #/LPF FEW UA AMORPHOUS SEDIMENT (test code = AMORU) FEW #/LPF Urine Source? Clean CatchURINALYSIS [id number] 01:29:00* Test Item Value Reference Range Interpretation Comments UA COLOR (test code = COLU) Light-Yellow YELLOW UA APPEARANCE (test code = APPU) Cloudy CLEAR A UA GLUCOSE DIPSTICK (test code = DGLUU) NEGATIVE mg/dL NEGATIVE UA BILIRUBIN DIPSTICK (test code = BILU) NEGATIVE mg/dL NEGATIVE UA KETONE DIPSTICK (test code = KETU) NEGATIVE mg/dL NEGATIVE UA SPECIFIC GRAVITY (test code = SGU) 1.007 1.001-1.035 UA BLOOD DIPSTICK (test code = SRINIVASAN) Negative mg/dL NEGATIVE UA PH DIPSTICK (test code = ANAY) 5.5 5.0-8.0 UA PROTEIN DIPSTICK (test code = PROU) NEGATIVE mg/dL NEGATIVE UA UROBILINIOGEN DIPSTICK (test code = URO) Normal mg/dL NEGATIVE UA NITRITE DIPSTICK (test code = RANDY) NEGATIVE NEGATIVE UA LEUKOCYTE ESTERASE W REFLEX (test code = LEUUR) 250 Kiya/u L (2+) Kiya/uL NEGATIVE A UA WBC (test code = WBCU) per HPF 0-5 UA RBC (test code = RBCU) per HPF 0-5 UA EPITHELIAL CELLS (test code = EPIU) per HPF Few UA BACTERIA (test code = BACU) per HPF NONE Urine Source? Clean Catch- CT C-SPINE W/O [id number] 00:52:00 Name: MARLEN NOLAND [facility] : 1945 Age/S: 73 / M [address] Unit #: [id number] Loc: [place] [address] Phys: Raghav Mena MD Acct: [id number] Di s Date: Status: REG ER PHONE #: Exam Date: 11/16/2018 2311 FAX #: [phone] Reason: fall, headache EXAMS: CPT CODE: [id number] CT C-SPINE W/O CONTRAST 70015 AFTER HOURS SERVICE ON: 12:46 AM *Study [...] 1 Signed Report (CONTINUED) Name: MARLEN NOLAND [facility] : 1945 Age/S: 73 / M [address] Unit #: [id number] Loc: [place] [address] Phys: Tamika Mena MD Acct: [id number] Dis Date: Status: REG ER PHONE #: [phone] Exam Date: 11/16/2018 2318 FAX #: [phone] Reason: fall, head ache EXAMS: CPT CODE: [id number] CT C-SPINE W/O CONTRAST 11407 <Continued> CC: Tamika Mena MD Technologist:ZEE FAYE RT CTDI: DLP: Trnscb Date/Time: 11/17/2018 (005) [email or web address] Orig Print D/T: S: 11/17/2018 (005) PAGE 2 Signed Report - CT CHEST W/O [id number] 00:24:00 Name: MARLEN NOLAND [facility] : 1945 Age/S: 73 / M [address] Unit #: [id number] Loc: [place] [address] Phys: Tamika Mena MD Acct: [id number] Dis Date: Status: REG ER PHONE #: [phone] Exam Date: 11/16/2018 2359 FAX #: [phone] Reason: fall, back pain, vomiting EXAMS: CPT CODE: [id number] CT CHEST W/O CONTRAST 04056 AFTER HOURS SERVICE ON: 11/17/2018 12:19 AM [...] 1 Signed Report (CONTINUED) Name: MARLEN NOLAND [facility] : 1945 Age/S: 73 / M [address] [facility] Unit #: [id number] Loc: [place] [address] Phys: Tamika Mena MD Acct: [id number] Dis Date: Status: REG ER PHONE #: [phone] Exam Date: 11/16/2018 235 FAX #: [phone] Reason: fall, back pain, vomiting EXAMS: CPT CODE: [id number] CT CHEST W/O CONTRAST 56644 <Continued> History: fall, back pain, vomiting Technique: [...] Jan Schneider M.D. CC: Tamika Mena MD Technologist:ZEE D ATMAR, RT CTDI: DLP: Trnscb Date/Time: 11/17/2018 (0024) [email or web address] Orig Print D/T: S: 11/17/2018 (0027) PAGE 2 Signed Report - CT ABD PELVIS W/O [id number] 00:24:00 Name: MARLEN NOLAND [facility] : 1945 Age/S: 73 / M [address] [facility] Unit #: [id number] Loc: [place] [address] Phys: Tamika Mena MD Acct: [id number] Dis Date: Status: REG ER PHONE #: [phone] Exam Date: 11/16/2018 1961 FAX #: [phone] Reason: fall, back pain, vomiting EXAMS: CPT CODE: [id number] CT ABD PELVIS W/O CONT 91472 AFTER HOURS SERVICE ON: 11/17/2018 12:19 AM [...] 1 Signed Report (CONTINUED) Name: MARLEN NOLAND [facility] : 1945 Age/S: 73 / M [address] [facility] Unit #: [id number] Loc: [place] [address] Phys: Tamika Mena MD Acct: [id number] Dis Date: Status: REG ER PHONE #: [phone] Exam Date: 11/16/2018 6795 FAX #: [phone] Reason: fall, back pain, vomiting EXAMS: CPT CODE: [id number] CT ABD PELVIS W/O CONT 94431 <Continued> History: fall, back pain, vomiting Technique: [...] Jan Schneider M.D. CC: Tamika Mena MD Technologist:ZEE FAYE, RT CTDI: DLP: Trnscb Date/Time: 11/17/2018 (002) [email or web address] Orig Print D/T: S: 11/17/2018 (0027) PAGE 2 Signed Report B- TYPE NATRIURETIC [id number] 23:50:00* Test Item Value Reference Range Interpretation Comments B-TYPE NATRIURETIC PEPTIDE (test code = BNP) 27.47 pgram/mL 0-100 N - CT HEAD/BRAIN W/O [id number] 23:42:00 Name: MARLEN NOLAND [facility] : 1945 Age/S: 73 / M [address] Alberto Jaffe [facility] Unit #: [id number] Loc: [place] [address] Phys: Tamika Mena MD Acct: [id number] Dis Date: Status: REG ER PHONE #: [phone] Exam Date: 11/16/2018 2310 FAX #: [phone] Reason: fall, headache EXAMS: CPT CODE: [id number] CT HEAD/BRAIN W/O CONT 75863 AFTER HOURS SERVICE ON: 11/16/2018 11:42 PM [...] JANES CTDI: DLP: Trnscb Date/Time: 11/16/2018 (2342) [email or web address] Orig Print D/T: S: 11/16/2018 (2866) PAGE 1 Signed Report PROCALCITONIN (PCT)2018-11-16 23:41:00* Test Item Value Reference Range Interpretation Comments PROCALCITONIN (PCT) (test code = PROCAL) 0.11 ng/ml Concentration Interpretation (ng/mL) <0.51 Sepsis [...] into account the patients history. BASIC METABOLIC [id number] 23:38:00* Test Item Value Reference Range Interpretation Comments SODIUM (test code = NA) 137 mmol/L 136-145 N POTASSIUM (test code = K) 4.2 mmol/L 3.5-5.1 N CHLORIDE (test code = CL) 103.0 mmol/L 98-107 N CARBON DIOXIDE (test code = CO2) 27.0 mmol/L 21-32 N ANION GAP (test code = GAP) 11.2 10-20 N GLUCOSE (test code = GLU) 154 mg/dL 74-106 H BLOOD UREA NITROGEN (test code = BUN) 21 mg/dL 7-18 H GLOMERULAR FILTRATION RATE (test code = GFR) 46 mL/min >=60 Estimated GFR by using Modified MDRD formula.Chronic kidney disease is defined as either kidney damageor GFR <60 mL/min/1.73 m2 for >3 months. CREATININE (test code = CREAT) 1.50 mg/dL 0.7-1.3 H BUN/CREATININE RATIO (test code = BUN/CREA) 14.4 10-20 N CALCIUM (test code = CA) 7.9 mg/dL 8.5-10.1 L HEPATIC FUNCTION [id number] 23:38:00* Test Item Value Reference Range Interpretation Comments TOTAL PROTEIN (test code = PROT) 6.4 gram/dL 6.4-8.2 N ALBUMIN (test code = ALB) 2.7 g/dL 3.4-5.0 L GLOBULIN (test code = GLOB) 3.7 gram/dL 2.7-4.2 N ALBUMIN/GLOBULIN RATIO (test code = A/G) 0.7 0.75-1.50 L BILIRUBIN TOTAL (test code = BILT) 0.20 mg/dL 0.0-1.0 N BILIRUBIN DIRECT (test code = BILD) 0.10 mg/dL 0.0-0.20 N SGOT/AST (test code = AST) 10 IUnit/L 15-37 L SGPT/ALT (test code = ALT) 11 IUnit/L 12-78 L ALKALINE PHOSPHATASE TOTAL (test code = ALKP) 64 IUnit/L 45-117 N Note change in reference range due to change in reagent. [id number] 23:38:00* Test Item Value Reference Range Interpretation Comments LIPASE (test code = LIP) 104 U/L 73.0-393.0 N [id number] 23:38:00* Test Item Value Reference Range Interpretation Comments MAGNESIUM (test code = MAG) 1.3 mg/dL 1.8-2.4 L [id number] 23:38:00* Test Item Value Reference Range Interpretation Comments TROPONIN-I (test code = TROPI) <0.015 ng/mL 0-0.045 N LACTIC [id number] 23:38:00* Test Item Value Reference Range Interpretation Comments LACTIC ACID (test code = LACT) 1.2 mmol/L 0.4-1.9 N - XR CHEST 1 [id number] 23:32:00 FAX: Tamika Rodriguez [phone] [place]: B St: REG Name: MARLEN RODGERS [facility] : [birth year] Age/S: 73/M [address] Unit #: [id number] Loc: [place] [address] Phys: Tamika Mena MD Acct: [id number] Dis Date: Status: REG ER PHONE #: [phone] Exam Date: 11/16/2018 2313 FAX #: [phone] Reason: WEAKNESS EXAMS: CPT CODE: [id number] XR CHEST 1 V 30964 REASON FOR EXAM: WEAKNESS Exam Order Date: 11/16/2018 10:42 PM Ordering Andrea: Ryan Mena MD PROCEDURE: - XR CHEST [...] Chronic elevation of the right hemidiaphragm. at 2332 Reported and signed by: Thor Davis MD CC: Tamika Mena MD Techn ologist: ZEE FAYE, RT Trnscrd Date/Ángel e/By: 11/16/2018 (5133) : By: [email or web address] Orig Print D/T: S: 11/16/2018 (7831) PAGE 1 Signed Report BASIC METABOLIC [id number] 23:26:00* Test Item Value Reference Range Interpretation Comments SODIUM (test code = NA) 137 mmol/L 136-145 N POTASSIUM (test code = K) 4.2 mmol/L 3.5-5.1 N CHLORIDE (test code = CL) 103.0 mmol/L 98-107 N CARBON DIOXIDE (test code = CO2) mmol/L 21-32 ANION GAP (test code = GAP) 10-20 GLUCOSE (test code = GLU) mg/dL 74-106 BLOOD UREA NITROGEN (test code = BUN) mg/dL 7-18 GLOMERULAR FILTRATION RATE (test code = GFR) mL/min >=60 CREATININE (test code = CREAT) mg/dL 0.7-1.3 BUN/CREATININE RATIO (test code = BUN/CREA) 10-20 CALCIUM (test code = CA) mg/dL 8.5-10.1 HEPATIC FUNCTION [id number] 23:26:00* Test Item Value Reference Range Interpretation Comments TOTAL PROTEIN (test code = PROT) gram/dL 6.4-8.2 ALBUMIN (test code = ALB) g/dL 3.4-5.0 GLOBULIN (test code = GLOB) gram/dL 2.7-4.2 ALBUMIN/GLOBULIN RATIO (test code = A/G) 0.75-1.50 BILIRUBIN TOTAL (test code = BILT) mg/dL 0.0-1.0 BILIRUBIN DIRECT (test code = BILD) mg/dL 0.0-0.20 SGOT/AST (test code = AST) IUnit/L 15-37 SGPT/ALT (test code = ALT) IUnit/L 12-78 ALKALINE PHOSPHATASE TOTAL (test code = ALKP) IUnit/L 45-117 [id number] 23:26:00* Test Item Value Reference Range Interpretation Comments LIPASE (test code = LIP) U/L 73.0-393.0 [id number] 23:26:00* Test Item Value Reference Range Interpretation Comments MAGNESIUM (test code = MAG) mg/dL 1.8-2.4 [id number] 23:26:00* Test Item Value Reference Range Interpretation Comments TROPONIN-I (test code = TROPI) ng/mL 0-0.045 PROTHROMBIN [id number] 23:23:00* Test Item Value Reference Range Interpretation Comments PROTHROMBIN TIME PATIENT (test code = PTP) 11.7 seconds 9.0-14.0 N INTERNATIONAL NORMAL RATIO (test code = INR) 1.0 0.8-1.2 N The therapeutic range for oral anticoagulant therapy [...] (2.5-3.5) IS PATIENT ON ANTICOAGULANTS? NTHROMBOPLASTIN TIME [id number] 23:23:00* Test Item Value Reference Range Interpretation Comments THROMBOPLASTIN TIME PARTIAL (test code = PTT) 28.8 seconds 25.0-36. 5 N IS PATIENT ON ANTICOAGULANTS? NCBC W/O [id number] 23:10:00* Test Item Value Reference Range Interpretation Comments WHITE BLOOD CELL (test code = WBC) 8.9 K/mm3 4.5-12.5 N RED BLOOD CELL (test code = RBC) 3.16 mill/mm3 4.0-5.8 L HEMOGLOBIN (test code = HGB) 9.9 gram/dL 13.0-17.5 L HEMATOCRIT (test code = HCT) 30.3 % 42.0-52.0 L MEAN CELL VOLUME (test code = MCV) 95.9 fL 80-98 N MEAN CELL HGB (test code = MCH) 31.3 picogram 27.0-33.0 N MEAN CELL HGB CONCETRATION (test code = MCHC) 32.7 gram/dL 33.0-36. 0 L RED CELL DISTRIBUTION WIDTH (test code = RDW) 12.8 % 11.6-16. 2 N PLATELET COUNT (test code = PLT) 348 K/mm3 150-450 N MEAN PLATELET VOLUME (test code = MPV) 9.5 fL 6.7-11.0 N POC LACTIC [id number] 23:03:00* Test Item Value Reference Range Interpretation Comments POC LACTIC ACID (test code = POCLAC) 1.02 MMOL/L 0.4-2.2 N Blood culture, aerobic & [id number] 01:03:06* Test Item Value Reference Range Interpretation Comments Blood culture isolate (test code = 600-7) No growth after 5 days of incubation. Specimen InformationSpecimen Source: BloodSpecimen [facility] [id number] 13:20:32Hm Interface, Radiology Results Incoming - 09/16/2018 8:23 AM CDTSINGLE VIEW CHEST, 09/16/2018Clinical History: Pneumonia.Technique: Single, portable AP view ch est.Comparison: 12/16/2018Impression:1. Stable right hemidiaphragm elevation wit h right lower thorax pleural thickening and subsegmental volume loss. The patien t is status post right lower lobectomy. Right lower lung lung interstitial thick ening and centrilobular nodules seen on CT from September 13, 2018 are difficult to di scern secondary to hemidiaphragm elevation.2. Clear left lung.3. Stable cardio mediastinal silhouette, with normal heart size.4. Overall, no interval change f rom September 15.[place] [facility] [id number] 06:47:39* Test Item Value Reference Range Interpretation Comments Gram stain isolate (test code = 1469) No WBC's or organisms seen. Specimen InformationSpecimen Source: Bronchial WashingSpecimen Site: Right and left lobes [place] [facility] [id number] 18:55:27* Test Item Value Reference Range Interpretation Comments Case number (test code = 3637347) [id number] Surgical pathology report (test code = 2255) See link below for PDF Lab Report Result status (test code = 0507942) This is Final Report for [id number] [place] [facility]ytology (non-gynecological) [id number] 18:20:30* Test Item Value Reference Range Interpretation Comments Case number (test code = [id number]) [id number] Cytology (non-gynecological) report (test code = 1178) See link below for PDF Lab Report Result status (test code = 2617350) This is Final Report for [id number] [place] [facility]CT Chest Wo [id number] 21:01:37Hm Interface, Radiology Results Incoming - 09/13/2018 4:04 PM CDTEXAMINATION:CT CHEST WO CONTRASTCLINICAL HISTORY:Portal vein thrombosisTECHNIQUE:Multiple axial images of the chest were obtained without intravenous contrast. The lack of intravenous contrast reduces the sensitivity of detecting solid organ disease and evaluating vasculature. Sagittal and coronal computerized reformatted images were also obtained.CT imaging was performed with iterative reconstruction techniques and/or automated exposure control to reduce radiation dose. COMPARISON:Chest CT 09/10/2017IMPRESSION:1. There is scarring in the right lung, and surgical barak nges of right lower lobectomy similar to previous study. There are superimposed groundglass and patchy consolidative opacities scattered in the right upper and middle lobes, and mild groundglass in the left upper lobe anteriorly that are ne w, consistent with infection.2. There are mild endotracheal secretions (image 3 1).3. There is a small stable subcentimeter opacity in the left upper lobe (luann ge 45) consistent with sequela of remote inflammation.4. Right pleural thickeni ng and trace right pleural fluid are stable.5. There are no significant thoraci c lymph nodes.6. The heart size is normal. Coronary atherosclerosis is present. 7. There is no acute finding in the partly imaged upper abdomen.8. There is no acute skeletal finding.[id number] MethodistPOCT-GLUCOSE METER 2018-06-12 07:40:00* Test Item Value Reference Range Interpretation Comments POC-GLUCOSE METER (BEAKER) (test code = 1538) 183 mg/dL 70-110 H TESTED AT [facility] [address] [facility] [address] POCT-GLUCOSE [id number] 21:37:00* Test Item Value Reference Range Interpretation Comments POC-GLUCOSE METER (BEAKER) (test code = 1538) 284 mg/dL 70-110 H TESTED AT [facility] [address] [facility] [address] MR, SPINE, LUMBAR, WITHOUT [id number] 17:25:00FINAL REPORT MRI lumbar spine without contrast [...] Verified Date/Time: 06/11/2018 17 :25:41 Reading Location: [address] Neuro Reading Room Electronically kathi d by: SHAYNA VERMA M.D. on 06/11/2018 05:25 PM POCT-GLUCOSE [id number] 12:52:00* Test Item Value Reference Range Interpretation Comments POC-GLUCOSE METER (BEAKER) (test code = 1538) 178 mg/dL 70-110 H TESTED AT [facility] [address] [facility] [address] HEMOGLOBIN [id number] 09:23:00* Test Item Value Reference Range Interpretation Comments HEMOGLOBIN A1C (BEAKER) (test code = 368) 7.4 % 4.3-6.1 H POCT-GLUCOSE [id number] 07:02:00* Test Item Value Reference Range Interpretation Comments POC-GLUCOSE METER (BEAKER) (test code = 1538) 236 mg/dL 70-110 H TESTED AT [facility] [address] [facility] [address] MR, MRA, BRAIN, WITHOUT [id number] 04:57:00Reason for exam:->Ischemic Stroke EvaluationFINAL REPORT MRA head and neck without contrast. CLINICAL HISTORY: Stroke. Ischemic stroke evaluation. COMPARISON: MRA head and neck 06/19/[address] angiography of head and neck 04/29/2017. TECHNIQUE: Two- and three-dimensional ymfa-ds-wtlpjh MRA images of the intra- and extracranial [...] is antegrade in both vertebral arteries. MRA [place]: There is no vessel occlusion [...] vessel occlusion or flow-limiting stenosis. Signed: Isaiah Lanza [facility] Verified Date/Time: 06/11/2018 04:57:39 Reading Location: [address] Body Reading Room , MRA, NECK, WITHOUT IV [id number] 04:57:00Reason for exam:-> Ischemic Stroke EvaluationFINAL REPORT MRA head and neck without contrast. CLINICAL HISTORY: Stroke. Ischemic stroke evaluation. COMPARISON: MRA head and neck 06/19/[address] angiography of head and neck 04/29/2017. TECHNIQUE: Two- and three-dimensional uywn-rh-fkahgz MRA images of the intra- and extracranial [...] is antegrade in both vertebral arteries. MRA [place]: There is no vessel occlusion [...] vessel occlusion or flow-limiting stenosis. Signed: Isaiah Lanza MDReport Verified Date/Time: 06/11/2018 04:57:39 Reading Locatio n: [facility] B1 C013Y CT Body Reading Room , BRAIN, WITHOUT [id number] 04:42:00 Reason for exam:->Ischemic Stroke EvaluationFINAL REPORT [...] White matter microvascular ischemic changes. Signed: Isaiah Lanzaort Verified Date/Time: 06/11/2018 04:42:05 Reading Location: [facility] B1 C013Y CT Body Reading Room D [id number] 03:33:00* Test Item Value Reference Range Interpretation Comments TRIGLYCERIDES (BEAKER) (test code = 540) 245 mg/dL CHOLESTEROL (BEAKER) (test code = 631) 107 mg/dL HDL CHOLESTEROL (BEAKER) (test code = 976) 30 mg/dL LDL CHOLESTEROL CALCULATED (BEAKER) (test code = 633) 28 mg/dL Triglyceride Reference Range: Low Risk <150 Borderline 150-199 High Risk 200-499 Very High Risk >=500Cholesterol Reference Range: Low Risk <200 Borderline 200-239 High Risk >240HDL Cholesterol Reference Range: Low Risk >=60 High Risk <40LDL Cholesterol Reference Range: Optimal <100 Near Optimal 100-129 Borderline 130-159 High 160-189 Very High >=190 Fasting BASIC METABOLIC [id number] 03:33:00* Test Item Value Reference Range Interpretation Comments SODIUM (BEAKER) (test code = 381) 137 meq/L 136-145 POTASSIUM (BEAKER) (test code = 379) 4.1 meq/L 3.5-5.1 CHLORIDE (BEAKER) (test code = 382) 102 meq/L 98-107 CO2 (BEAKER) (test code = 355) 26 meq/L 22-29 BLOOD UREA NITROGEN (BEAKER) (test code = 354) 18 mg/dL 7-21 CREATININE (BEAKER) (test code = 358) 0.89 mg/dL 0.57-1.25 GLUCOSE RANDOM (BEAKER) (test code = 652) 173 mg/dL 70-105 H CALCIUM (BEAKER) (test code = 697) 9.2 mg/dL 8.4-10.2 EGFR (BEAKER) (test code = 1092) 84 mL/min/1.73 sq m ESTIMATED GFR IS NOT ACCURATE CREATININE CLEARANCE IN PREDICTING GLOMERULAR FILTRATION RATE. ESTIMATED GFR IS NOT APPLICABLE FOR DIALYSIS PATIENTS. FastingPOCT-GLUCOSE [id number] 21:25:00* Test Item Value Reference Range Interpretation Comments POC-GLUCOSE METER (BEAKER) (test code = 1538) 172 mg/dL 70-110 H TESTED AT [facility] [address] [facility] [address] POCT-GLUCOSE [id number] 18:35:00* Test Item Value Reference Range Interpretation Comments POC-GLUCOSE METER (BEAKER) (test code = 1538) 114 mg/dL 70-110 H TESTED AT [facility] [address] [facility] [address] CT, BRAIN, WITHOUT [id number] 14:05:00Reason for exam:->headacheWhat is the patient's sedation [...] with MRI is recommended. Signed: Shayna Verma Verif ied Date/Time: 06/10/2018 14:05:12 Reading Location: [facility] Radiology Re ading Room 02: 05 PM RAD, CHEST, 1 VIEW, NON [id number] 13:26:00Reason for exam:->CHEST PAINShould this be performed at the bedside?->YesFINAL REPORT AP chest, two images HISTORY: Chest pain COMPARISON: 01/22/2018 IMPRESSION:Intact skeleton. Status post sternotomy. Heart size normal. Left lung clear. Right hemidiaphragm elevation. Adjacent opacity suggestive of chronic atelectasis or scarring, similar to previous. No effusion or pneumothorax. Signed: Yrn Ceron Verified Date/Time: 06/10/2018 13:26:19 Reading Location: [address] Radiology Reading Room ONIN [id number] 13:24:00* Test Item Value Reference Range Interpretation Comments TROPONIN I (STEPHONAKER) (test code = 397) < ng/mL 0.00-0.03 Troponin I (TnI) levels [...] (BNP)2018-06-10 13:23:00* Test Item Value Reference Range Interpretation Comments B-TYPE NATRIURETIC PEPTIDE (BEAKER) (test code = 700) 13 pg/mL 0-100 BASIC METABOLIC [id number] 13:15:00* Test Item Value Reference Range Interpretation Comments SODIUM (BEAKER) (test code = 381) 133 meq/L 136-145 L POTASSIUM (BEAKER) (test code = 379) 4.3 meq/L 3.5-5.1 CHLORIDE (BEAKER) (test code = 382) 99 meq/L 98-107 CO2 (BEAKER) (test code = 355) 25 meq/L 22-29 BLOOD UREA NITROGEN (BEAKER) (test code = 354) 18 mg/dL 7-21 CREATININE (BEAKER) (test code = 358) 0.91 mg/dL 0.57-1.25 GLUCOSE RANDOM (BEAKER) (test code = 652) 153 mg/dL 70-105 H CALCIUM (BEAKER) (test code = 697) 10.0 mg/dL 8.4-10.2 EGFR (BEAKER) (test code = 1092) 82 mL/min/1.73 sq m ESTIMATED GFR IS NOT ACCURATE CREATININE CLEARANCE IN PREDICTING GLOMERULAR FILTRATION RATE. ESTIMATED GFR IS NOT APPLICABLE FOR DIALYSIS PATIENTS. PT/[id number] 13:05:00* Test Item Value Reference Range Interpretation Comments PROTIME (BEAKER) (test code = 759) 13.7 seconds 11.7-14.7 INR (BEAKER) (test code = 370) 1.0 <=5.9 PARTIAL THROMBOPLASTIN TIME (BEAKER) (test code = 760) 34.9 seconds 22.5-36.0 RECOMMENDED COUMADIN/WARFARIN INR THERAPY RANGESSTANDARD DOSE: 2.0 - 3.0 Inclu renetta: PROPHYLAXIS for venous thrombosis, systemic embolization; TREATMENT for noé ous thrombosis and/or pulmonary embolus.HIGH RISK: Target INR is 2.5-3.5 for pat ients with mechanical heart valves.CBC W/PLT COUNT & AUTO [id number] 12:59:00* Test Item Value Reference Range Interpretation Comments WHITE BLOOD CELL COUNT (BEAKER) (test code = 775) 8.3 K/ L 3.5- 10.5 RED BLOOD CELL COUNT (BEAKER) (test code = 761) 4.03 M/ L 4.63-6 .08 L HEMOGLOBIN (BEAKER) (test code = 410) 12.6 GM/DL 13.7-17.5 L HEMATOCRIT (BEAKER) (test code = 411) 36.6 % 40.1-51.0 L MEAN CORPUSCULAR VOLUME (BEAKER) (test code = 753) 90.8 fL 79. 0-92.2 MEAN CORPUSCULAR HEMOGLOBIN (BEAKER) (test code = 751) 31.3 pg 25.7-32.2 MEAN CORPUSCULAR HEMOGLOBIN CONC (BEAKER) (test code = 752) 34.4 GM/DL 32.3-36.5 RED CELL DISTRIBUTION WIDTH (BEAKER) (test code = 412) 12.1 % 11.6-14.4 PLATELET COUNT (BEAKER) (test code = 756) 209 K/CU MM 150-450 MEAN PLATELET VOLUME (BEAKER) (test code = 754) 9.5 fL 9.4-12 .4 NUCLEATED RED BLOOD CELLS (BEAKER) (test code = 413) 0 /100 WBC 0 -0 NEUTROPHILS RELATIVE PERCENT (BEAKER) (test code = 429) 60 % LYMPHOCYTES RELATIVE PERCENT (BEAKER) (test code = 430) 28 % MONOCYTES RELATIVE PERCENT (BEAKER) (test code = 431) 7 % EOSINOPHILS RELATIVE PERCENT (BEAKER) (test code = 432) 3 % BASOPHILS RELATIVE PERCENT (BEAKER) (test code = 437) 1 % NEUTROPHILS ABSOLUTE COUNT (BEAKER) (test code = 670) 4.99 K/ L 1.78-5.38 LYMPHOCYTES ABSOLUTE COUNT (BEAKER) (test code = 414) 2.35 K/ L 1.32-3.57 MONOCYTES ABSOLUTE COUNT (BEAKER) (test code = 415) 0.61 K/ L 0. 30-0.82 EOSINOPHILS ABSOLUTE COUNT (BEAKER) (test code = 416) 0.28 K/ L 0.04-0.54 BASOPHILS ABSOLUTE COUNT (BEAKER) (test code = 417) 0.05 K/ L 0. 01-0.08 IMMATURE GRANULOCYTES-RELATIVE PERCENT (BEAKER) (test code = 2801) 0 % 0-1 BLOOD [id number] 16:05:00* Test Item Value Reference Range Interpretation Comments CULTURE (BEAKER) (test code = 1095) A From Aerobic Bottle Only Cellulosimicrobium cellulansIdentification performed by:[facility], [address] [place] [address] GRAM STAIN RESULT (BEAKER) (test code = 1123) From aer obic bottle only: gram positive rods BLOOD [id number] 06:00:00* Test Item Value Reference Range Interpretation Comments CULTURE (BEAKER) (test code = 1095) No growth in 5 days POCT-GLUCOSE [id number] 11:32:00* Test Item Value Reference Range Interpretation Comments POC-GLUCOSE METER (BEAKER) (test code = 1538) 251 mg/dL 70-110 H TESTED AT [facility] [address] [place] [address] VANCOMYCIN LEVEL, [id number] 09:36:00* Test Item Value Reference Range Interpretation Comments VANCOMYCIN TROUGH (BEAKER) (test code = 522) 18.0 ug/mL 10.0-20.0 POCT-GLUCOSE [id number] 08:03:00* Test Item Value Reference Range Interpretation Comments POC-GLUCOSE METER (BEAKER) (test code = 1538) 258 mg/dL 70-110 H TESTED AT [address] [address] VANCOMYCIN LEVEL, [id number] 04:57:00* Test Item Value Reference Range Interpretation Comments VANCOMYCIN TROUGH (BEAKER) (test code = 522) 19.8 ug/mL 10.0-20.0 [id number] 04:55:00* Test Item Value Reference Range Interpretation Comments MAGNESIUM (BEAKER) (test code = 627) 1.9 mg/dL 1.6-2.6 BASIC METABOLIC [id number] 04:55:00* Test Item Value Reference Range Interpretation Comments SODIUM (BEAKER) (test code = 381) 130 meq/L 136-145 L POTASSIUM (BEAKER) (test code = 379) 4.0 meq/L 3.5-5.1 CHLORIDE (BEAKER) (test code = 382) 100 meq/L 98-107 CO2 (BEAKER) (test code = 355) 23 meq/L 22-29 BLOOD UREA NITROGEN (BEAKER) (test code = 354) 10 mg/dL 7-21 CREATININE (BEAKER) (test code = 358) 0.95 mg/dL 0.57-1.25 GLUCOSE RANDOM (BEAKER) (test code = 652) 327 mg/dL 70-105 H CALCIUM (BEAKER) (test code = 697) 9.0 mg/dL 8.4-10.2 EGFR (BEAKER) (test code = 1092) 78 mL/min/1.73 sq m ESTIMATED GFR IS NOT ACCURATE CREATININE CLEARANCE IN PREDICTING GLOMERULAR FILTRATION RATE. ESTIMATED GFR IS NOT APPLICABLE FOR DIALYSIS PATIENTS. CBC W/PLT COUNT & AUTO [id number] 04:37:00* Test Item Value Reference Range Interpretation Comments WHITE BLOOD CELL COUNT (BEAKER) (test code = 775) 7.1 K/ L 3.5- 10.5 RED BLOOD CELL COUNT (BEAKER) (test code = 761) 3.68 M/ L 4.63-6 .08 L HEMOGLOBIN (BEAKER) (test code = 410) 11.2 GM/DL 13.7-17.5 L HEMATOCRIT (BEAKER) (test code = 411) 33.8 % 40.1-51.0 L MEAN CORPUSCULAR VOLUME (BEAKER) (test code = 753) 91.8 fL 79. 0-92.2 MEAN CORPUSCULAR HEMOGLOBIN (BEAKER) (test code = 751) 30.4 pg 25.7-32.2 MEAN CORPUSCULAR HEMOGLOBIN CONC (BEAKER) (test code = 752) 33.1 GM/DL 32.3-36.5 RED CELL DISTRIBUTION WIDTH (BEAKER) (test code = 412) 12.8 % 11.6-14.4 PLATELET COUNT (BEAKER) (test code = 756) 239 K/CU MM 150-450 MEAN PLATELET VOLUME (BEAKER) (test code = 754) 9.6 fL 9.4-12 .4 NUCLEATED RED BLOOD CELLS (BEAKER) (test code = 413) 0 /100 WBC 0 -0 NEUTROPHILS RELATIVE PERCENT (BEAKER) (test code = 429) 64 % LYMPHOCYTES RELATIVE PERCENT (BEAKER) (test code = 430) 26 % MONOCYTES RELATIVE PERCENT (BEAKER) (test code = 431) 8 % EOSINOPHILS RELATIVE PERCENT (BEAKER) (test code = 432) 2 % BASOPHILS RELATIVE PERCENT (BEAKER) (test code = 437) 0 % NEUTROPHILS ABSOLUTE COUNT (BEAKER) (test code = 670) 4.56 K/ L 1.78-5.38 LYMPHOCYTES ABSOLUTE COUNT (BEAKER) (test code = 414) 1.81 K/ L 1.32-3.57 MONOCYTES ABSOLUTE COUNT (BEAKER) (test code = 415) 0.59 K/ L 0. 30-0.82 EOSINOPHILS ABSOLUTE COUNT (BEAKER) (test code = 416) 0.11 K/ L 0.04-0.54 BASOPHILS ABSOLUTE COUNT (BEAKER) (test code = 417) 0.02 K/ L 0. 01-0.08 IMMATURE GRANULOCYTES-RELATIVE PERCENT (BEAKER) (test code = 2801) 0 % 0-1 BLOOD CULTURE IDENTIFICATION [id number] 00:32:00* Test Item Value Reference Range Interpretation Comments LISTERIA MONOCYTOGENES (test code = 20160203) Not detected Not detec bernice STAPHYLOCOCCUS (test code = 8442089) Not detected Not detected STAPHYLOCOCCUS AUREUS (test code = 2125483) Not detected Not detect ed STREPTOCOCCUS (test code = 7933485) Not detected Not detected STREPTOCOCCUS AGALACTIAE (GROUP B) (test code = 8416921) Not detected Not detected STREPTOCOCCUS PNEUMONIAE (test code = 0192567) Not detected Not det ected STREPTOCOCCUS PYOGENES (GROUP A) (test code = 8835298) Not d etected Not detected ACINETOBACTER BAUMANNII (test code = 7768370) Not detected Not dete cted HAEMOPHILUS INFLUENZAE (test code = 0399418) Not detected Not detec bernice NEISSERIA MENINGITIDIS (test code = 8676860) Not detected Not detec bernice ENTEROBACTERIACEAE (test code = 2418520) Not detected Not detected ENTEROBACTER CLOACOE COMPLEX (test code = 6453549) Not detected Not detected KLEBSIELLA OXYTOCA (test code = 0730225) Not detected Not detected KLEBSIELLA PNEUMONIAE (test code = 1650) Not detected Not detected PROTEUS (test code = 7716055) Not detected Not detected SERRATIA MARCESCENS (test code = 9604697) Not detected Not detected PORTIA ALBICANS (test code = 3195636) Not detected Not detected PORTIA GLABRATA (test code = 7760764) Not detected Not detected PORTIA KRUSEI (test code = 1196853) Not detected Not detected PORTIA PARAPSILOSIS (test code = 2973491) Not detected Not detecte d PORTIA TROPICALIS (test code = 5255995) Not detected Not detected ESCHERICHIA COLI (test code = 6072689) Not detected Not detected METHICILLIN-RESISTANCE GENE (test code = 2417919) Not detected VANCOMYCIN-RESISTANCE GENE (test code = 7103218) Not d etected CARBAPENEM-RESISTANCE GENE (test code = 7061835) Not d etected ENTEROCOCCUS-BEAKER (test code = 0498569) Not detected Not detected PSEUDOMONAS AERUGINOSA-BEAKER (test code = 1312454) Not detected No t detected Other bacteria and resistance markers not targeted by this PCR panel cannot be e xcluded; therefore clinical correlation and follow up of serology, culture resul ts, and other molecular studies is required. The results are not intended to be used as the sole means for clinical diagnosis or patient management decisions. T his sample was tested at the [facility] using the [employer] Blood Culture ID Panel. It is FDA cleared and has been verified and approved by the [facility] for clinical use. Thi s laboratory is CLIA-certified and [employer] ([employer])-accred ited to perform high complexity testing.POCT-GLUCOSE [id number] 20:07:00* Test Item Value Reference Range Interpretation Comments POC-GLUCOSE METER (BEAKER) (test code = 1538) 274 mg/dL 70-110 H TESTED AT [address] [address] POCT-GLUCOSE [id number] 19:06:00* Test Item Value Reference Range Interpretation Comments POC-GLUCOSE METER (BEAKER) (test code = 1538) 200 mg/dL 70-110 H TESTED AT [address] [address] POCT-GLUCOSE [id number] 18:09:00* Test Item Value Reference Range Interpretation Comments POC-GLUCOSE METER (BEAKER) (test code = 1538) 202 mg/dL 70-110 H TESTED AT [address] [address] POCT-GLUCOSE [id number] 18:09:00* Test Item Value Reference Range Interpretation Comments POC-GLUCOSE METER (BEAKER) (test code = 1538) 188 mg/dL 70-110 H TESTED AT [facility] [address] [facility] [address] POCT-GLUCOSE [id number] 17:01:00* Test Item Value Reference Range Interpretation Comments POC-GLUCOSE METER (BEAKER) (test code = 1538) 215 mg/dL 70-110 H TESTED AT [facility] [address] [facility] [address] POCT-GLUCOSE [id number] 15:11:00* Test Item Value Reference Range Interpretation Comments POC-GLUCOSE METER (BEAKER) (test code = 1538) 188 mg/dL 70-110 H TESTED AT [facility] [address] [facility] [address] [id number] 14:37:00* Test Item Value Reference Range Interpretation Comments PROCALCITONIN (BEAKER) (test code = 3036) < ng/mL <0.05 SEPSIS RISK (ng/mL)Low: 0.05-0.50Intermediate: 0.51-2.00High: > =2.01TROPONIN [id number] 14:28:00* Test Item Value Reference Range Interpretation Comments TROPONIN I (BEAKER) (test code = 397) < ng/mL 0.00-0.03 Troponin I (TnI) levels [...] acidosis, acute neurological disease, and per sistent tachyarrhythmia.[id number] 14:21:00* Test Item Value Reference Range Interpretation Comments MAGNESIUM (BEAKER) (test code = 627) 1.8 mg/dL 1.6-2.6 BASIC METABOLIC [id number] 14:21:00* Test Item Value Reference Range Interpretation Comments SODIUM (BEAKER) (test code = 381) 128 meq/L 136-145 L POTASSIUM (BEAKER) (test code = 379) 4.0 meq/L 3.5-5.1 CHLORIDE (BEAKER) (test code = 382) 98 meq/L 98-107 CO2 (BEAKER) (test code = 355) 22 meq/L 22-29 BLOOD UREA NITROGEN (BEAKER) (test code = 354) 10 mg/dL 7-21 CREATININE (BEAKER) (test code = 358) 0.92 mg/dL 0.57-1.25 GLUCOSE RANDOM (BEAKER) (test code = 652) 145 mg/dL 70-105 H CALCIUM (BEAKER) (test code = 697) 8.7 mg/dL 8.4-10.2 EGFR (BEAKER) (test code = 1092) 81 mL/min/1.73 sq m ESTIMATED GFR IS NOT ACCURATE CREATININE CLEARANCE IN PREDICTING GLOMERULAR FILTRATION RATE. ESTIMATED GFR IS NOT APPLICABLE FOR DIALYSIS PATIENTS. LACTIC ACID, VENOUS, WHOLE [id number] 14:14:00* Test Item Value Reference Range Interpretation Comments LACTATE BLOOD VENOUS (2) (BEAKER) (test code = 2872) 2.1 mmol/L 0 .5-2.2 Specimen slightly hemolyzed Effective 09/04/2015: Units/Reference Range ChangeNew: 0.5-2.2 mmol/L Previous: 5 -20 mg/dLPOCT-GLUCOSE [id number] 14:13:00* Test Item Value Reference Range Interpretation Comments POC-GLUCOSE METER (BEAKER) (test code = 1538) 118 mg/dL 70-110 H TESTED AT [address] [address] POCT-GLUCOSE [id number] 13:24:00* Test Item Value Reference Range Interpretation Comments POC-GLUCOSE METER (BEAKER) (test code = 1538) 209 mg/dL 70-110 H TESTED AT [address] [address] POCT-GLUCOSE [id number] 12:35:00* Test Item Value Reference Range Interpretation Comments POC-GLUCOSE METER (BEAKER) (test code = 1538) 104 mg/dL 70-110 TESTED AT [address] [address] POCT-GLUCOSE [id number] 12:10:00* Test Item Value Reference Range Interpretation Comments POC-GLUCOSE METER (BEAKER) (test code = 1538) 149 mg/dL 70-110 H TESTED AT [address] [address] POCT-GLUCOSE [id number] 11:03:00* Test Item Value Reference Range Interpretation Comments POC-GLUCOSE METER (BEAKER) (test code = 1538) 116 mg/dL 70-110 H TESTED AT [place] [id number] [facility] [address] POCT-GLUCOSE [id number] 10:30:00* Test Item Value Reference Range Interpretation Comments POC-GLUCOSE METER (BEAKER) (test code = 1538) 230 mg/dL 70-110 H TESTED AT [address] [address] POCT-GLUCOSE [id number] 09:31:00* Test Item Value Reference Range Interpretation Comments POC-GLUCOSE METER (BEAKER) (test code = 1538) 250 mg/dL 70-110 H TESTED AT [address] [address] POCT-GLUCOSE [id number] 08:16:00* Test Item Value Reference Range Interpretation Comments POC-GLUCOSE METER (BEAKER) (test code = 1538) 257 mg/dL 70-110 H TESTED AT [address] [address] [id number] 06:04:00* Test Item Value Reference Range Interpretation Comments MAGNESIUM (BEAKER) (test code = 627) 1.8 mg/dL 1.6-2.6 BASIC METABOLIC [id number] 06:04:00* Test Item Value Reference Range Interpretation Comments SODIUM (BEAKER) (test code = 381) 134 meq/L 136-145 L POTASSIUM (BEAKER) (test code = 379) 4.3 meq/L 3.5-5.1 CHLORIDE (BEAKER) (test code = 382) 101 meq/L 98-107 CO2 (BEAKER) (test code = 355) 25 meq/L 22-29 BLOOD UREA NITROGEN (BEAKER) (test code = 354) 11 mg/dL 7-21 CREATININE (BEAKER) (test code = 358) 0.81 mg/dL 0.57-1.25 GLUCOSE RANDOM (BEAKER) (test code = 652) 151 mg/dL 70-105 H CALCIUM (BEAKER) (test code = 697) 9.3 mg/dL 8.4-10.2 EGFR (BEAKER) (test code = 1092) 94 mL/min/1.73 sq m ESTIMATED GFR IS NOT ACCURATE CREATININE CLEARANCE IN PREDICTING GLOMERULAR FILTRATION RATE. ESTIMATED GFR IS NOT APPLICABLE FOR DIALYSIS PATIENTS. CBC W/PLT COUNT & AUTO [id number] 04:04:00* Test Item Value Reference Range Interpretation Comments WHITE BLOOD CELL COUNT (BEAKER) (test code = 775) 8.3 K/ L 3.5- 10.5 RED BLOOD CELL COUNT (BEAKER) (test code = 761) 3.73 M/ L 4.63-6 .08 L HEMOGLOBIN (BEAKER) (test code = 410) 11.4 GM/DL 13.7-17.5 L HEMATOCRIT (BEAKER) (test code = 411) 33.9 % 40.1-51.0 L MEAN CORPUSCULAR VOLUME (BEAKER) (test code = 753) 90.9 fL 79. 0-92.2 MEAN CORPUSCULAR HEMOGLOBIN (BEAKER) (test code = 751) 30.6 pg 25.7-32.2 MEAN CORPUSCULAR HEMOGLOBIN CONC (BEAKER) (test code = 752) 33.6 GM/DL 32.3-36.5 RED CELL DISTRIBUTION WIDTH (BEAKER) (test code = 412) 12.9 % 11.6-14.4 PLATELET COUNT (BEAKER) (test code = 756) 266 K/CU MM 150-450 MEAN PLATELET VOLUME (BEAKER) (test code = 754) 9.9 fL 9.4-12 .4 NUCLEATED RED BLOOD CELLS (BEAKER) (test code = 413) 0 /100 WBC 0 -0 NEUTROPHILS RELATIVE PERCENT (BEAKER) (test code = 429) 71 % LYMPHOCYTES RELATIVE PERCENT (BEAKER) (test code = 430) 21 % MONOCYTES RELATIVE PERCENT (BEAKER) (test code = 431) 8 % EOSINOPHILS RELATIVE PERCENT (BEAKER) (test code = 432) 1 % BASOPHILS RELATIVE PERCENT (BEAKER) (test code = 437) 0 % NEUTROPHILS ABSOLUTE COUNT (BEAKER) (test code = 670) 5.86 K/ L 1.78-5.38 H LYMPHOCYTES ABSOLUTE COUNT (BEAKER) (test code = 414) 1.74 K/ L 1.32-3.57 MONOCYTES ABSOLUTE COUNT (BEAKER) (test code = 415) 0.65 K/ L 0. 30-0.82 EOSINOPHILS ABSOLUTE COUNT (BEAKER) (test code = 416) 0.04 K/ L 0.04-0.54 BASOPHILS ABSOLUTE COUNT (BEAKER) (test code = 417) 0.01 K/ L 0. 01-0.08 IMMATURE GRANULOCYTES-RELATIVE PERCENT (BEAKER) (test code = 2801) 0 % 0-1 POCT-GLUCOSE [id number] 21:20:00* Test Item Value Reference Range Interpretation Comments POC-GLUCOSE METER (BEAKER) (test code = 1538) 313 mg/dL 70-110 H TESTED AT [facility] [address] [facility] [address] [id number] 05:10:00* Test Item Value Reference Range Interpretation Comments MAGNESIUM (BEAKER) (test code = 627) 1.6 mg/dL 1.6-2.6 BASIC METABOLIC [id number] 05:10:00* Test Item Value Reference Range Interpretation Comments SODIUM (BEAKER) (test code = 381) 129 meq/L 136-145 L POTASSIUM (BEAKER) (test code = 379) 4.3 meq/L 3.5-5.1 CHLORIDE (BEAKER) (test code = 382) 98 meq/L 98-107 CO2 (BEAKER) (test code = 355) 23 meq/L 22-29 BLOOD UREA NITROGEN (BEAKER) (test code = 354) 15 mg/dL 7-21 CREATININE (BEAKER) (test code = 358) 0.85 mg/dL 0.57-1.25 GLUCOSE RANDOM (BEAKER) (test code = 652) 158 mg/dL 70-105 H CALCIUM (BEAKER) (test code = 697) 8.6 mg/dL 8.4-10.2 EGFR (BEAKER) (test code = 1092) 89 mL/min/1.73 sq m ESTIMATED GFR IS NOT ACCURATE CREATININE CLEARANCE IN PREDICTING GLOMERULAR FILTRATION RATE. ESTIMATED GFR IS NOT APPLICABLE FOR DIALYSIS PATIENTS. LACTIC ACID, VENOUS, WHOLE [id number] 04:52:00* Test Item Value Reference Range Interpretation Comments LACTATE BLOOD VENOUS (2) (BEAKER) (test code = 2872) 1.6 mmol/L 0 .5-2.2 Effective 09/04/2015: Units/Reference Range ChangeNew: 0.5-2.2 mmol/L Previous: 5 -20 mg/dLCBC W/PLT COUNT & AUTO [id number] 04:44:00* Test Item Value Reference Range Interpretation Comments WHITE BLOOD CELL COUNT (BEAKER) (test code = 775) 17.9 K/ L 3.5- 10.5 H RED BLOOD CELL COUNT (BEAKER) (test code = 761) 3.31 M/ L 4.63-6 .08 L HEMOGLOBIN (BEAKER) (test code = 410) 10.1 GM/DL 13.7-17.5 L HEMATOCRIT (BEAKER) (test code = 411) 30.3 % 40.1-51.0 L MEAN CORPUSCULAR VOLUME (BEAKER) (test code = 753) 91.5 fL 79. 0-92.2 MEAN CORPUSCULAR HEMOGLOBIN (BEAKER) (test code = 751) 30.5 pg 25.7-32.2 MEAN CORPUSCULAR HEMOGLOBIN CONC (BEAKER) (test code = 752) 33.3 GM/DL 32.3-36.5 RED CELL DISTRIBUTION WIDTH (BEAKER) (test code = 412) 12.5 % 11.6-14.4 PLATELET COUNT (BEAKER) (test code = 756) 217 K/CU MM 150-450 MEAN PLATELET VOLUME (BEAKER) (test code = 754) 9.7 fL 9.4-12 .4 NUCLEATED RED BLOOD CELLS (BEAKER) (test code = 413) 0 /100 WBC 0 -0 NEUTROPHILS RELATIVE PERCENT (BEAKER) (test code = 429) 84 % LYMPHOCYTES RELATIVE PERCENT (BEAKER) (test code = 430) 10 % MONOCYTES RELATIVE PERCENT (BEAKER) (test code = 431) 5 % EOSINOPHILS RELATIVE PERCENT (BEAKER) (test code = 432) 0 % BASOPHILS RELATIVE PERCENT (BEAKER) (test code = 437) 0 % NEUTROPHILS ABSOLUTE COUNT (BEAKER) (test code = 670) 15.00 K/ L 1.78-5.38 H LYMPHOCYTES ABSOLUTE COUNT (BEAKER) (test code = 414) 1.75 K/ L 1.32-3.57 MONOCYTES ABSOLUTE COUNT (BEAKER) (test code = 415) 0.95 K/ L 0. 30-0.82 H EOSINOPHILS ABSOLUTE COUNT (BEAKER) (test code = 416) 0.00 K/ L 0.04-0.54 L BASOPHILS ABSOLUTE COUNT (BEAKER) (test code = 417) 0.02 K/ L 0. 01-0.08 IMMATURE GRANULOCYTES-RELATIVE PERCENT (BEAKER) (test code = 2801) 1 % 0-1 URINALYSIS W/ REFLEX URINE [id number] 10:07:00* Test Item Value Reference Range Interpretation Comments COLOR (BEAKER) (test code = 470) Light Yellow CLARITY (BEAKER) (test code = 469) Clear SPECIFIC GRAVITY UA (BEAKER) (test code = 468) 1.009 1.001-1 .035 PH UA (BEAKER) (test code = 467) 5.0 5.0-8.0 PROTEIN UA (BEAKER) (test code = 464) Negative Negative GLUCOSE UA (BEAKER) (test code = 365) 100 mg/dL Negative A KETONES UA (BEAKER) (test code = 371) Negative Negative BILIRUBIN UA (BEAKER) (test code = 462) Negative Negative BLOOD UA (BEAKER) (test code = 461) Negative Negative NITRITE UA (BEAKER) (test code = 465) Negative Negative LEUKOCYTE ESTERASE UA (BEAKER) (test code = 466) Negative Negat marleen UROBILINOGEN UA (BEAKER) (test code = 463) 0.2 mg/dL 0.2-1.0 RBC UA (BEAKER) (test code = 519) 0 /HPF WBC UA (BEAKER) (test code = 520) < /HPF MUCUS (BEAKER) (test code = 1574) Rare SQUAMOUS EPITHELIAL (BEAKER) (test code = 516) < /HPF SOURCE(BEAKER) (test code = 2795) [id number] 05:42:00* Test Item Value Reference Range Interpretation Comments MAGNESIUM (BEAKER) (test code = 627) 1.6 mg/dL 1.6-2.6 BASIC METABOLIC [id number] 05:42:00* Test Item Value Reference Range Interpretation Comments SODIUM (BEAKER) (test code = 381) 129 meq/L 136-145 L POTASSIUM (BEAKER) (test code = 379) 5.4 meq/L 3.5-5.1 H CHLORIDE (BEAKER) (test code = 382) 97 meq/L 98-107 L CO2 (BEAKER) (test code = 355) 25 meq/L 22-29 BLOOD UREA NITROGEN (BEAKER) (test code = 354) 15 mg/dL 7-21 CREATININE (BEAKER) (test code = 358) 0.88 mg/dL 0.57-1.25 GLUCOSE RANDOM (BEAKER) (test code = 652) 261 mg/dL 70-105 H CALCIUM (BEAKER) (test code = 697) 8.9 mg/dL 8.4-10.2 EGFR (BEAKER) (test code = 1092) 85 mL/min/1.73 sq m ESTIMATED GFR IS NOT ACCURATE CREATININE CLEARANCE IN PREDICTING GLOMERULAR FILTRATION RATE. ESTIMATED GFR IS NOT APPLICABLE FOR DIALYSIS PATIENTS. CBC W/PLT COUNT & AUTO [id number] 05:29:00* Test Item Value Reference Range Interpretation Comments WHITE BLOOD CELL COUNT (BEAKER) (test code = 775) 10.9 K/ L 3.5- 10.5 H RED BLOOD CELL COUNT (BEAKER) (test code = 761) 3.63 M/ L 4.63-6 .08 L HEMOGLOBIN (BEAKER) (test code = 410) 11.0 GM/DL 13.7-17.5 L HEMATOCRIT (BEAKER) (test code = 411) 33.6 % 40.1-51.0 L MEAN CORPUSCULAR VOLUME (BEAKER) (test code = 753) 92.6 fL 79. 0-92.2 H MEAN CORPUSCULAR HEMOGLOBIN (BEAKER) (test code = 751) 30.3 pg 25.7-32.2 MEAN CORPUSCULAR HEMOGLOBIN CONC (BEAKER) (test code = 752) 32.7 GM/DL 32.3-36.5 RED CELL DISTRIBUTION WIDTH (BEAKER) (test code = 412) 12.3 % 11.6-14.4 PLATELET COUNT (BEAKER) (test code = 756) 225 K/CU MM 150-450 MEAN PLATELET VOLUME (BEAKER) (test code = 754) 9.4 fL 9.4-12 .4 NUCLEATED RED BLOOD CELLS (BEAKER) (test code = 413) 0 /100 WBC 0 -0 NEUTROPHILS RELATIVE PERCENT (BEAKER) (test code = 429) 92 % LYMPHOCYTES RELATIVE PERCENT (BEAKER) (test code = 430) 6 % MONOCYTES RELATIVE PERCENT (BEAKER) (test code = 431) 1 % EOSINOPHILS RELATIVE PERCENT (BEAKER) (test code = 432) 0 % BASOPHILS RELATIVE PERCENT (BEAKER) (test code = 437) 0 % NEUTROPHILS ABSOLUTE COUNT (BEAKER) (test code = 670) 10.06 K/ L 1.78-5.38 H LYMPHOCYTES ABSOLUTE COUNT (BEAKER) (test code = 414) 0.70 K/ L 1.32-3.57 L MONOCYTES ABSOLUTE COUNT (BEAKER) (test code = 415) 0.08 K/ L 0. 30-0.82 L EOSINOPHILS ABSOLUTE COUNT (BEAKER) (test code = 416) 0.01 K/ L 0.04-0.54 L BASOPHILS ABSOLUTE COUNT (BEAKER) (test code = 417) 0.01 K/ L 0. 01-0.08 IMMATURE GRANULOCYTES-RELATIVE PERCENT (BEAKER) (test code = 2801) 1 % 0-1 LACTIC ACID, VENOUS, WHOLE [id number] 05:22:00* Test Item Value Reference Range Interpretation Comments LACTATE BLOOD VENOUS (2) (BEAKER) (test code = 2872) 0.6 mmol/L 0 .5-2.2 Effective 09/04/2015: Units/Reference Range ChangeNew: 0.5-2.2 mmol/L Previous: 5 -20 mg/dLBLOOD GAS, [id number] 05:03:00* Test Item Value Reference Range Interpretation Comments PH ARTERIAL (BEAKER) (test code = 383) 7.32 7.35-7.45 L PCO2 ARTERIAL (BEAKER) (test code = 384) 57 mmHg 35-45 H PO2 ARTERIAL (BEAKER) (test code = 385) 89 mmHg 80-90 O2 SATURATION ARTERIAL (BEAKER) (test code = 386) 96.3 % 96.0 -97.0 HCO3 ARTERIAL (BEAKER) (test code = 388) 29 mmol/L 21-29 BASE EXCESS ARTERIAL (BEAKER) (test code = 387) 1.4 mmol/L -2.0-3 .0 PATIENT TEMPERATURE (BEAKER) (test code = 1818) 36.4 C FIO2 (BEAKER) (test code = 1819) 30.0 % POCT-LACTIC ACID, [id number] 23:56:00* Test Item Value Reference Range Interpretation Comments POC-LACTIC ACID, VENOUS (BEAKER) (test code = 2805) 1.1 mmol/L 0. 9-1.7 TESTED AT [facility] [address] [facility] [address] CT, BRAIN, WITHOUT [id number] 23:32:00Reason for exam:->headacheWhat is the patient's sedation [...] Verified Aubrey e/Time: 01/22/2018 23:32:29 Reading Location: [facility] C013Y CT Body Reading Room D GAS, [id number] 22:43:00* Test Item Value Reference Range Interpretation Comments PH ARTERIAL (BEAKER) (test code = 383) 7.37 7.35-7.45 PCO2 ARTERIAL (BEAKER) (test code = 384) 50 mmHg 35-45 H PO2 ARTERIAL (BEAKER) (test code = 385) 173 mmHg 80-90 H O2 SATURATION ARTERIAL (BEAKER) (test code = 386) 99.1 % 96.0 -97.0 H HCO3 ARTERIAL (BEAKER) (test code = 388) 28 mmol/L 21-29 BASE EXCESS ARTERIAL (BEAKER) (test code = 387) 2.3 mmol/L -2.0-3 .0 PATIENT TEMPERATURE (BEAKER) (test code = 1818) 37.5 C FIO2 (BEAKER) (test code = 1819) 30.0 % B-TYPE NATRIURETIC FACTOR (BNP)[id number] 22:39:00* Test Item Value Reference Range Interpretation Comments B-TYPE NATRIURETIC PEPTIDE (BEAKER) (test code = 700) 113 pg/mL 0-100 H RAD, CHEST, PA OR AP, 1 [id number] 22:31:00Reason for exam:->chest painShould this be performed [...] Verified Date/Time: 01/22/2018 22:31:12 Reading Lo cation: [facility] B1 C013Y CT Body Reading Room TINE KINASE (CK), TOTAL AND [id number] 22:17:00* Test Item Value Reference Range Interpretation Comments CREATINE KINASE TOTAL (BEAKER) (test code = 380) 115 U/L 29-20 0 CREATINE KINASE-MB (BEAKER) (test code = 750) 1.5 ng/mL 0.0-6.6 CREATINE KINASE-MB INDEX (BEAKER) (test code = 395) 1.3 % CK-MB Reference Range:<6.7 Normal6.7-10.0 Borderline>10.0 Abnormal TROPONIN [id number] 22:17:00* Test Item Value Reference Range Interpretation Comments TROPONIN I (BEAKER) (test code = 397) < ng/mL 0.00-0.03 Troponin I (TnI) levels [...] neurological disease, and per sistent tachyarrhythmia.BASIC METABOLIC [id number] 22:10:00* Test Item Value Reference Range Interpretation Comments SODIUM (BEAKER) (test code = 381) 127 meq/L 136-145 L POTASSIUM (BEAKER) (test code = 379) 5.5 meq/L 3.5-5.1 H Specimen moderately hemolyzed CHLORIDE (BEAKER) (test code = 382) 90 meq/L 98-107 L CO2 (BEAKER) (test code = 355) 29 meq/L 22-29 BLOOD UREA NITROGEN (BEAKER) (test code = 354) 14 mg/dL 7-21 CREATININE (BEAKER) (test code = 358) 1.04 mg/dL 0.57-1.25 Specimen moderately hemolyzed GLUCOSE RANDOM (BEAKER) (test code = 652) 140 mg/dL 70-105 H CALCIUM (BEAKER) (test code = 697) 9.3 mg/dL 8.4-10.2 EGFR (BEAKER) (test code = 1092) 70 mL/min/1.73 sq m ESTIMATED GFR IS NOT ACCURATE CREATININE CLEARANCE IN PREDICTING GLOMERULAR FILTRATION RATE. ESTIMATED GFR IS NOT APPLICABLE FOR DIALYSIS PATIENTS. [id number] 22:02:00* Test Item Value Reference Range Interpretation Comments PROTIME (BEAKER) (test code = 759) 14.7 seconds 11.7-14.7 INR (BEAKER) (test code = 370) 1.2 <=5.9 PARTIAL THROMBOPLASTIN TIME (BEAKER) (test code = 760) 26.3 seconds 22.5-36.0 RECOMMENDED COUMADIN/WARFARIN INR THERAPY RANGESSTANDARD DOSE: 2.0 - 3.0 Inclu renetta: PROPHYLAXIS for venous thrombosis, systemic embolization; TREATMENT for noé ous thrombosis and/or pulmonary embolus.HIGH RISK: Target INR is 2.5-3.5 for pat ients with mechanical heart valves.CBC W/PLT COUNT & AUTO [id number] 22:01:00* Test Item Value Reference Range Interpretation Comments WHITE BLOOD CELL COUNT (BEAKER) (test code = 775) 16.8 K/ L 3.5- 10.5 H RED BLOOD CELL COUNT (BEAKER) (test code = 761) 3.83 M/ L 4.63-6 .08 L HEMOGLOBIN (BEAKER) (test code = 410) 11.8 GM/DL 13.7-17.5 L HEMATOCRIT (BEAKER) (test code = 411) 35.0 % 40.1-51.0 L MEAN CORPUSCULAR VOLUME (BEAKER) (test code = 753) 91.4 fL 79. 0-92.2 MEAN CORPUSCULAR HEMOGLOBIN (BEAKER) (test code = 751) 30.8 pg 25.7-32.2 MEAN CORPUSCULAR HEMOGLOBIN CONC (BEAKER) (test code = 752) 33.7 GM/DL 32.3-36.5 RED CELL DISTRIBUTION WIDTH (BEAKER) (test code = 412) 12.4 % 11.6-14.4 PLATELET COUNT (BEAKER) (test code = 756) 241 K/CU MM 150-450 MEAN PLATELET VOLUME (BEAKER) (test code = 754) 9.7 fL 9.4-12 .4 NUCLEATED RED BLOOD CELLS (BEAKER) (test code = 413) 0 /100 WBC 0 -0 NEUTROPHILS RELATIVE PERCENT (BEAKER) (test code = 429) 82 % LYMPHOCYTES RELATIVE PERCENT (BEAKER) (test code = 430) 11 % MONOCYTES RELATIVE PERCENT (BEAKER) (test code = 431) 5 % EOSINOPHILS RELATIVE PERCENT (BEAKER) (test code = 432) 2 % BASOPHILS RELATIVE PERCENT (BEAKER) (test code = 437) 0 % NEUTROPHILS ABSOLUTE COUNT (BEAKER) (test code = 670) 13.76 K/ L 1.78-5.38 H LYMPHOCYTES ABSOLUTE COUNT (BEAKER) (test code = 414) 1.90 K/ L 1.32-3.57 MONOCYTES ABSOLUTE COUNT (BEAKER) (test code = 415) 0.78 K/ L 0. 30-0.82 EOSINOPHILS ABSOLUTE COUNT (BEAKER) (test code = 416) 0.29 K/ L 0.04-0.54 BASOPHILS ABSOLUTE COUNT (BEAKER) (test code = 417) 0.03 K/ L 0. 01-0.08 IMMATURE GRANULOCYTES-RELATIVE PERCENT (BEAKER) (test code = 2801) 1 % 0-1 POCT-GLUCOSE [id number] 12:05:00* Test Item Value Reference Range Interpretation Comments POC-GLUCOSE METER (BEAKER) (test code = 1538) 221 mg/dL 70-110 H TESTED AT [facility] [address] [facility] [address] HEMOGLOBIN [id number] 08:29:00* Test Item Value Reference Range Interpretation Comments HEMOGLOBIN A1C (BEAKER) (test code = 368) 7.6 % 4.3-6.1 H POCT-GLUCOSE [id number] 08:13:00* Test Item Value Reference Range Interpretation Comments POC-GLUCOSE METER (BEAKER) (test code = 1538) 189 mg/dL 70-110 H TESTED AT [facility] [address] [facility] [address] BASIC METABOLIC [id number] 04:59:00* Test Item Value Reference Range Interpretation Comments SODIUM (BEAKER) (test code = 381) 130 meq/L 136-145 L POTASSIUM (BEAKER) (test code = 379) 4.1 meq/L 3.5-5.1 CHLORIDE (BEAKER) (test code = 382) 91 meq/L 98-107 L CO2 (BEAKER) (test code = 355) 32 meq/L 22-29 H BLOOD UREA NITROGEN (BEAKER) (test code = 354) 14 mg/dL 7-21 CREATININE (BEAKER) (test code = 358) 0.84 mg/dL 0.57-1.25 GLUCOSE RANDOM (BEAKER) (test code = 652) 186 mg/dL 70-105 H CALCIUM (BEAKER) (test code = 697) 9.3 mg/dL 8.4-10.2 EGFR (BEAKER) (test code = 1092) 90 mL/min/1.73 sq m ESTIMATED GFR IS NOT ACCURATE CREATININE CLEARANCE IN PREDICTING GLOMERULAR FILTRATION RATE. ESTIMATED GFR IS NOT APPLICABLE FOR DIALYSIS PATIENTS. CBC W/PLT COUNT & AUTO [id number] 04:34:00* Test Item Value Reference Range Interpretation Comments WHITE BLOOD CELL COUNT (BEAKER) (test code = 775) 10.0 K/ L 3.5- 10.5 RED BLOOD CELL COUNT (BEAKER) (test code = 761) 3.92 M/ L 4.63-6 .08 L HEMOGLOBIN (BEAKER) (test code = 410) 11.9 GM/DL 13.7-17.5 L HEMATOCRIT (BEAKER) (test code = 411) 35.0 % 40.1-51.0 L MEAN CORPUSCULAR VOLUME (BEAKER) (test code = 753) 89.3 fL 79. 0-92.2 MEAN CORPUSCULAR HEMOGLOBIN (BEAKER) (test code = 751) 30.4 pg 25.7-32.2 MEAN CORPUSCULAR HEMOGLOBIN CONC (BEAKER) (test code = 752) 34.0 GM/DL 32.3-36.5 RED CELL DISTRIBUTION WIDTH (BEAKER) (test code = 412) 12.2 % 11.6-14.4 PLATELET COUNT (BEAKER) (test code = 756) 262 K/CU MM 150-450 MEAN PLATELET VOLUME (BEAKER) (test code = 754) 9.1 fL 9.4-12 .4 L NUCLEATED RED BLOOD CELLS (BEAKER) (test code = 413) 0 /100 WBC 0 -0 NEUTROPHILS RELATIVE PERCENT (BEAKER) (test code = 429) 66 % LYMPHOCYTES RELATIVE PERCENT (BEAKER) (test code = 430) 25 % MONOCYTES RELATIVE PERCENT (BEAKER) (test code = 431) 7 % EOSINOPHILS RELATIVE PERCENT (BEAKER) (test code = 432) 1 % BASOPHILS RELATIVE PERCENT (BEAKER) (test code = 437) 0 % NEUTROPHILS ABSOLUTE COUNT (BEAKER) (test code = 670) 6.62 K/ L 1.78-5.38 H LYMPHOCYTES ABSOLUTE COUNT (BEAKER) (test code = 414) 2.47 K/ L 1.32-3.57 MONOCYTES ABSOLUTE COUNT (BEAKER) (test code = 415) 0.66 K/ L 0. 30-0.82 EOSINOPHILS ABSOLUTE COUNT (BEAKER) (test code = 416) 0.09 K/ L 0.04-0.54 BASOPHILS ABSOLUTE COUNT (BEAKER) (test code = 417) 0.02 K/ L 0. 01-0.08 IMMATURE GRANULOCYTES-RELATIVE PERCENT (BEAKER) (test code = 2801) 2 % 0-1 H POCT-GLUCOSE [id number] 23:13:00* Test Item Value Reference Range Interpretation Comments POC-GLUCOSE METER (BEAKER) (test code = 1538) 297 mg/dL 70-110 H TESTED AT [facility] [address] [facility] [address] POCT-GLUCOSE [id number] 17:26:00* Test Item Value Reference Range Interpretation Comments POC-GLUCOSE METER (BEAKER) (test code = 1538) 299 mg/dL 70-110 H TESTED AT [address] [address] POCT-GLUCOSE [id number] 11:59:00* Test Item Value Reference Range Interpretation Comments POC-GLUCOSE METER (BEAKER) (test code = 1538) 267 mg/dL 70-110 H TESTED AT [address] [address] POCT-GLUCOSE [id number] 07:46:00* Test Item Value Reference Range Interpretation Comments POC-GLUCOSE METER (BEAKER) (test code = 1538) 277 mg/dL 70-110 H TESTED AT [address] [address] POCT-GLUCOSE [id number] 21:54:00* Test Item Value Reference Range Interpretation Comments POC-GLUCOSE METER (BEAKER) (test code = 1538) 324 mg/dL 70-110 H Notified AUBREE BIGGS/TESTED AT [address] [address] POCT-GLUCOSE [id number] 18:31:00* Test Item Value Reference Range Interpretation Comments POC-GLUCOSE METER (BEAKER) (test code = 1538) 454 mg/dL 70-110 HH TESTED AT [address] [address] POCT-GLUCOSE [id number] 17:35:00* Test Item Value Reference Range Interpretation Comments POC-GLUCOSE METER (BEAKER) (test code = 1538) 417 mg/dL 70-110 HH Notified AUBREE BIGGS/TESTED AT [address] [address] POCT-GLUCOSE [id number] 12:18:00* Test Item Value Reference Range Interpretation Comments POC-GLUCOSE METER (BEAKER) (test code = 1538) 309 mg/dL 70-110 H Notified AUBREE BIGGS/TESTED AT [address] [address] POCT-GLUCOSE [id number] 08:04:00* Test Item Value Reference Range Interpretation Comments POC-GLUCOSE METER (BEAKER) (test code = 1538) 380 mg/dL 70-110 H Notified AUBREE BIGGS/TESTED AT [address] [address] POCT-GLUCOSE [id number] 00:00:00* Test Item Value Reference Range Interpretation Comments POC-GLUCOSE METER (BEAKER) (test code = 1538) 346 mg/dL 70-110 H Notified AUBREE BIGGS/TESTED AT [address] [address] POCT-GLUCOSE [id number] 18:44:00* Test Item Value Reference Range Interpretation Comments POC-GLUCOSE METER (BEAKER) (test code = 1538) 351 mg/dL 70-110 H TESTED AT [address] [address] POCT-GLUCOSE [id number] 12:22:00* Test Item Value Reference Range Interpretation Comments POC-GLUCOSE METER (BEAKER) (test code = 1538) 378 mg/dL 70-110 H TESTED AT [address] [address] POCT-GLUCOSE [id number] 07:52:00* Test Item Value Reference Range Interpretation Comments POC-GLUCOSE METER (BEAKER) (test code = 1538) 276 mg/dL 70-110 H TESTED AT [address] [address] BASIC METABOLIC [id number] 07:04:00* Test Item Value Reference Range Interpretation Comments SODIUM (BEAKER) (test code = 381) 129 meq/L 136-145 L POTASSIUM (BEAKER) (test code = 379) 4.1 meq/L 3.5-5.1 CHLORIDE (BEAKER) (test code = 382) 91 meq/L 98-107 L CO2 (BEAKER) (test code = 355) 28 meq/L 22-29 BLOOD UREA NITROGEN (BEAKER) (test code = 354) 10 mg/dL 7-21 CREATININE (BEAKER) (test code = 358) 0.77 mg/dL 0.57-1.25 GLUCOSE RANDOM (BEAKER) (test code = 652) 265 mg/dL 70-105 H CALCIUM (BEAKER) (test code = 697) 9.1 mg/dL 8.4-10.2 EGFR (BEAKER) (test code = 1092) 99 mL/min/1.73 sq m ESTIMATED GFR IS NOT ACCURATE CREATININE CLEARANCE IN PREDICTING GLOMERULAR FILTRATION RATE. ESTIMATED GFR IS NOT APPLICABLE FOR DIALYSIS PATIENTS. CBC W/PLT COUNT & AUTO [id number] 06:42:00* Test Item Value Reference Range Interpretation Comments WHITE BLOOD CELL COUNT (BEAKER) (test code = 775) 7.2 K/ L 3.5- 10.5 RED BLOOD CELL COUNT (BEAKER) (test code = 761) 3.79 M/ L 4.63-6 .08 L HEMOGLOBIN (BEAKER) (test code = 410) 11.5 GM/DL 13.7-17.5 L HEMATOCRIT (BEAKER) (test code = 411) 33.4 % 40.1-51.0 L MEAN CORPUSCULAR VOLUME (BEAKER) (test code = 753) 88.1 fL 79. 0-92.2 MEAN CORPUSCULAR HEMOGLOBIN (BEAKER) (test code = 751) 30.3 pg 25.7-32.2 MEAN CORPUSCULAR HEMOGLOBIN CONC (BEAKER) (test code = 752) 34.4 GM/DL 32.3-36.5 RED CELL DISTRIBUTION WIDTH (BEAKER) (test code = 412) 12.0 % 11.6-14.4 PLATELET COUNT (BEAKER) (test code = 756) 237 K/CU MM 150-450 MEAN PLATELET VOLUME (BEAKER) (test code = 754) 9.5 fL 9.4-12 .4 NUCLEATED RED BLOOD CELLS (BEAKER) (test code = 413) 0 /100 WBC 0 -0 NEUTROPHILS RELATIVE PERCENT (BEAKER) (test code = 429) 88 % LYMPHOCYTES RELATIVE PERCENT (BEAKER) (test code = 430) 10 % MONOCYTES RELATIVE PERCENT (BEAKER) (test code = 431) 2 % EOSINOPHILS RELATIVE PERCENT (BEAKER) (test code = 432) 0 % BASOPHILS RELATIVE PERCENT (BEAKER) (test code = 437) 0 % NEUTROPHILS ABSOLUTE COUNT (BEAKER) (test code = 670) 6.29 K/ L 1.78-5.38 H LYMPHOCYTES ABSOLUTE COUNT (BEAKER) (test code = 414) 0.68 K/ L 1.32-3.57 L MONOCYTES ABSOLUTE COUNT (BEAKER) (test code = 415) 0.15 K/ L 0. 30-0.82 L EOSINOPHILS ABSOLUTE COUNT (BEAKER) (test code = 416) 0.00 K/ L 0.04-0.54 L BASOPHILS ABSOLUTE COUNT (BEAKER) (test code = 417) 0.00 K/ L 0. 01-0.08 L IMMATURE GRANULOCYTES-RELATIVE PERCENT (BEAKER) (test code = 2801) 1 % 0-1 POCT-GLUCOSE [id number] 22:24:00* Test Item Value Reference Range Interpretation Comments POC-GLUCOSE METER (BEAKER) (test code = 1538) 296 mg/dL 70-110 H TESTED AT [address] [address] POCT-GLUCOSE [id number] 17:11:00* Test Item Value Reference Range Interpretation Comments POC-GLUCOSE METER (BEAKER) (test code = 1538) 290 mg/dL 70-110 H TESTED AT [address] [address] POCT-GLUCOSE [id number] 13:02:00* Test Item Value Reference Range Interpretation Comments POC-GLUCOSE METER (BEAKER) (test code = 1538) 248 mg/dL 70-110 H TESTED AT [address] [address] POCT-GLUCOSE [id number] 07:40:00* Test Item Value Reference Range Interpretation Comments POC-GLUCOSE METER (BEAKER) (test code = 1538) 190 mg/dL 70-110 H TESTED AT [address] [address] POCT-GLUCOSE [id number] 22:42:00* Test Item Value Reference Range Interpretation Comments POC-GLUCOSE METER (BEAKER) (test code = 1538) 317 mg/dL 70-110 H TESTED AT [address] [address] POCT-GLUCOSE [id number] 17:46:00* Test Item Value Reference Range Interpretation Comments POC-GLUCOSE METER (BEAKER) (test code = 1538) 244 mg/dL 70-110 H TESTED AT [address] [address] POCT-GLUCOSE [id number] 11:36:00* Test Item Value Reference Range Interpretation Comments POC-GLUCOSE METER (BEAKER) (test code = 1538) 256 mg/dL 70-110 H TESTED AT [address] [address] POCT-GLUCOSE [id number] 07:53:00* Test Item Value Reference Range Interpretation Comments POC-GLUCOSE METER (BEAKER) (test code = 1538) 122 mg/dL 70-110 H TESTED AT [address] [address] POCT-GLUCOSE [id number] 22:31:00* Test Item Value Reference Range Interpretation Comments POC-GLUCOSE METER (BEAKER) (test code = 1538) 244 mg/dL 70-110 H TESTED AT [place] [id number] [facility] [address] POCT-GLUCOSE [id number] 17:42:00* Test Item Value Reference Range Interpretation Comments POC-GLUCOSE METER (BEAKER) (test code = 1538) 226 mg/dL 70-110 H TESTED AT [address] [address] POCT-GLUCOSE [id number] 12:52:00* Test Item Value Reference Range Interpretation Comments POC-GLUCOSE METER (BEAKER) (test code = 1538) 120 mg/dL 70-110 H TESTED AT [address] [address] POCT-GLUCOSE [id number] 09:48:00* Test Item Value Reference Range Interpretation Comments POC-GLUCOSE METER (BEAKER) (test code = 1538) 139 mg/dL 70-110 H TESTED AT [address] [address] TROPONIN [id number] 08:27:00* Test Item Value Reference Range Interpretation Comments TROPONIN I (BEAKER) (test code = 397) 0.01 ng/mL 0.00-0.03 Troponin I (TnI) levels [...] acute neurological disease, and per sistent tachyarrhythmia.POCT-GLUCOSE [id number] 08:17:00* Test Item Value Reference Range Interpretation Comments POC-GLUCOSE METER (BEAKER) (test code = 1538) 122 mg/dL 70-110 H TESTED AT [address] [address] POCT-GLUCOSE [id number] 06:23:00* Test Item Value Reference Range Interpretation Comments POC-GLUCOSE METER (BEAKER) (test code = 1538) 134 mg/dL 70-110 H TESTED AT [address] [address] POCT-LACTIC ACID, [id number] 00:57:00* Test Item Value Reference Range Interpretation Comments POC-LACTIC ACID, VENOUS (BEAKER) (test code = 2805) 1.2 mmol/L 0. 9-1.7 TESTED AT [facility] [address] [facility] [address] RAPID DRUG SCREEN, [id number] 22:28:00* Test Item Value Reference Range Interpretation Comments BARBITURATE URINE (BEAKER) (test code = 725) Negative Negative BENZODIAZEPINE SCREEN URINE (BEAKER) (test code = 726) Positive Negative A COCAINE (METAB.) SCREEN (BEAKER) (test code = 1164) Negative Ne gative METHADONE SCREEN (BEAKER) (test code = 1436) Negative Negative OPIATE SCREEN URINE (BEAKER) (test code = 734) Positive Negativ e A CANNABINOID SCREEN URINE (BEAKER) (test code = 727) Negative Ne gative AMPH/METHAMPH SCREEN (BEAKER) (test code = 1438) Negative Negat marleen PHENCYCLIDINE SCREEN URINE (BEAKER) (test code = 608) Negative Negative OXYCODONE SCREEN URINE (BEAKER) (test code = 2761) Negative Neg ative DRUG CUTOFF CONC.Cocaine 300 ng/mL Cannabinoid 50 ng/mL Benzodiazepine 200 ng/mLBarbiturate 200 ng/mLPh encyclidine 25 ng/mLOpiate 300 ng/mLMethadone 300 ng/mLAmphetamine/ 1000 ng/mL MethamphetamineOxycodone 300 ng/mLThis assay provides an unconfirmed qualitative test result for the cli nical management of patients in emergency situations. Chain of custody not maint ained. Some kvyv-twr-qphxfqj medications, as well as adulterants, may cause inac curate results. Clinical correlation should be applied. A more comprehensive wally g screen or confirmation of a detected drug may be performed upon request. CREATINE KINASE (CK), TOTAL AND [id number] 22:05:00* Test Item Value Reference Range Interpretation Comments CREATINE KINASE TOTAL (BEAKER) (test code = 380) 67 U/L 29-20 0 CREATINE KINASE-MB (BEAKER) (test code = 750) 0.9 ng/mL 0.0-6.6 CREATINE KINASE-MB INDEX (BEAKER) (test code = 395) 1.3 % CK-MB Reference Range:<6.7 Normal6.7-10.0 Borderline>10.0 Abnormal TROPONIN [id number] 22:05:00* Test Item Value Reference Range Interpretation Comments TROPONIN I (BEAKER) (test code = 397) < ng/mL 0.00-0.03 Troponin I (TnI) levels [...] and per sistent tachyarrhythmia.URINALYSIS W/ REFLEX URINE [id number] 22:03:00* Test Item Value Reference Range Interpretation Comments COLOR (BEAKER) (test code = 470) Yellow CLARITY (BEAKER) (test code = 469) Clear SPECIFIC GRAVITY UA (BEAKER) (test code = 468) 1.010 1.001-1 .035 PH UA (BEAKER) (test code = 467) 5.0 5.0-8.0 PROTEIN UA (BEAKER) (test code = 464) Negative Negative GLUCOSE UA (BEAKER) (test code = 365) 150 mg/dL Negative A KETONES UA (BEAKER) (test code = 371) Negative Negative BILIRUBIN UA (BEAKER) (test code = 462) Negative Negative BLOOD UA (BEAKER) (test code = 461) Negative Negative NITRITE UA (BEAKER) (test code = 465) Negative Negative LEUKOCYTE ESTERASE UA (BEAKER) (test code = 466) Negative Negat marleen UROBILINOGEN UA (BEAKER) (test code = 463) 0.2 mg/dL 0.2-1.0 RBC UA (BEAKER) (test code = 519) < /HPF WBC UA (BEAKER) (test code = 520) 0 /HPF BACTERIA (BEAKER) (test code = 517) Rare SQUAMOUS EPITHELIAL (BEAKER) (test code = 516) < /HPF SOURCE(BEAKER) (test code = 6529) B-TYPE NATRIURETIC FACTOR (BNP)[id number] 22:01:00* Test Item Value Reference Range Interpretation Comments B-TYPE NATRIURETIC PEPTIDE (BEAKER) (test code = 700) 92 pg/mL 0-100 [id number] 21:59:00* Test Item Value Reference Range Interpretation Comments LIPASE (BEAKER) (test code = 749) 21 U/L 8-78 COMPREHENSIVE METABOLIC [id number] 21:59:00* Test Item Value Reference Range Interpretation Comments TOTAL PROTEIN (BEAKER) (test code = 770) 7.6 gm/dL 6.0-8.3 ALBUMIN (BEAKER) (test code = 1145) 4.3 g/dL 3.5-5.0 ALKALINE PHOSPHATASE (BEAKER) (test code = 346) 77 U/L 40-150 BILIRUBIN TOTAL (BEAKER) (test code = 377) 0.6 mg/dL 0.2-1.2 SODIUM (BEAKER) (test code = 381) 133 meq/L 136-145 L POTASSIUM (BEAKER) (test code = 379) 4.8 meq/L 3.5-5.1 CHLORIDE (BEAKER) (test code = 382) 95 meq/L 98-107 L CO2 (BEAKER) (test code = 355) 27 meq/L 22-29 BLOOD UREA NITROGEN (BEAKER) (test code = 354) 14 mg/dL 7-21 CREATININE (BEAKER) (test code = 358) 1.06 mg/dL 0.57-1.25 GLUCOSE RANDOM (BEAKER) (test code = 652) 215 mg/dL 70-105 H CALCIUM (BEAKER) (test code = 697) 9.3 mg/dL 8.4-10.2 AST (SGOT) (BEAKER) (test code = 353) 19 U/L 5-34 ALT (SGPT) (BEAKER) (test code = 347) 14 U/L 6-55 EGFR (BEAKER) (test code = 1092) 69 mL/min/1.73 sq m ESTIMATED GFR IS NOT ACCURATE CREATININE CLEARANCE IN PREDICTING GLOMERULAR FILTRATION RATE. ESTIMATED GFR IS NOT APPLICABLE FOR DIALYSIS PATIENTS. KETONE, [id number] 21:49:00* Test Item Value Reference Range Interpretation Comments KETONES, BLOOD (BEAKER) (test code = 1103) 0.1 mmol/L <0.4 CBC W/PLT COUNT & AUTO [id number] 21:46:00* Test Item Value Reference Range Interpretation Comments WHITE BLOOD CELL COUNT (BEAKER) (test code = 775) 14.8 K/ L 3.5- 10.5 H RED BLOOD CELL COUNT (BEAKER) (test code = 761) 4.35 M/ L 4.63-6 .08 L HEMOGLOBIN (BEAKER) (test code = 410) 13.3 GM/DL 13.7-17.5 L HEMATOCRIT (BEAKER) (test code = 411) 39.8 % 40.1-51.0 L MEAN CORPUSCULAR VOLUME (BEAKER) (test code = 753) 91.5 fL 79. 0-92.2 MEAN CORPUSCULAR HEMOGLOBIN (BEAKER) (test code = 751) 30.6 pg 25.7-32.2 MEAN CORPUSCULAR HEMOGLOBIN CONC (BEAKER) (test code = 752) 33.4 GM/DL 32.3-36.5 RED CELL DISTRIBUTION WIDTH (BEAKER) (test code = 412) 12.6 % 11.6-14.4 PLATELET COUNT (BEAKER) (test code = 756) 300 K/CU MM 150-450 MEAN PLATELET VOLUME (BEAKER) (test code = 754) 9.6 fL 9.4-12 .4 NUCLEATED RED BLOOD CELLS (BEAKER) (test code = 413) 0 /100 WBC 0 -0 NEUTROPHILS RELATIVE PERCENT (BEAKER) (test code = 429) 89 % LYMPHOCYTES RELATIVE PERCENT (BEAKER) (test code = 430) 5 % MONOCYTES RELATIVE PERCENT (BEAKER) (test code = 431) 5 % EOSINOPHILS RELATIVE PERCENT (BEAKER) (test code = 432) 1 % BASOPHILS RELATIVE PERCENT (BEAKER) (test code = 437) 0 % NEUTROPHILS ABSOLUTE COUNT (BEAKER) (test code = 670) 13.19 K/ L 1.78-5.38 H LYMPHOCYTES ABSOLUTE COUNT (BEAKER) (test code = 414) 0.75 K/ L 1.32-3.57 L MONOCYTES ABSOLUTE COUNT (BEAKER) (test code = 415) 0.72 K/ L 0. 30-0.82 EOSINOPHILS ABSOLUTE COUNT (BEAKER) (test code = 416) 0.07 K/ L 0.04-0.54 BASOPHILS ABSOLUTE COUNT (BEAKER) (test code = 417) 0.04 K/ L 0. 01-0.08 IMMATURE GRANULOCYTES-RELATIVE PERCENT (BEAKER) (test code = 2801) 1 % 0-1 POCT-LACTIC ACID, [id number] 21:40:00* Test Item Value Reference Range Interpretation Comments POC-LACTIC ACID, VENOUS (BEAKER) (test code = 2805) 2.3 mmol/L 0. 9-1.7 H TESTED AT [address] [address] BLOOD GAS, [id number] 21:39:00* Test Item Value Reference Range Interpretation Comments PH VENOUS (BEAKER) (test code = 701) 7.30 7.32-7.42 L PCO2 VENOUS (BEAKER) (test code = 755) 61 mmHg 41-51 H PO2 VENOUS (BEAKER) (test code = 702) 47 mmHg 25-40 H O2 SATURATION VENOUS (BEAKER) (test code = 703) 80.5 % 40.0-7 0.0 H HCO3 VENOUS (BEAKER) (test code = 705) 29 mmol/L 21-29 BASE EXCESS VENOUS (BEAKER) (test code = 704) 1.2 mmol/L -2.0-3.0 PATIENT TEMPERATURE (BEAKER) (test code = 1818) 36.0 C FIO2 (BEAKER) (test code = 1819) 21.0 % RAD, CHEST, 1 VIEW, NON [id number] 21:30:00Reason for exam:->SHORTNESS OF BREATHShould this be performed at the bedside?->YesFINAL REPORT AP chest HISTORY: Shortness of breath COMPARISON: 04/28/2017 IMPRESSION:Status post median sternotomy. Heart size upper limits of normal. Thoracic aortic ectasia. Right hemidiaphragm elevation. Right basilar opacity suggests atelectasis or scarring. Left lung clear. No pneumothorax. Signed: Yrn Ceron MDReport Verified Date/Time: 01/10/2018 21:30:44 Reading Location: [address] Consult Reading Room -GLUCOSE [id number] 21:15:00* Test Item Value Reference Range Interpretation Comments POC-GLUCOSE METER (BEAKER) (test code = 1538) 221 mg/dL 70-110 H TESTED AT [address] [address] POCT-GLUCOSE [id number] 07:36:00* Test Item Value Reference Range Interpretation Comments POC-GLUCOSE METER (BEAKER) (test code = 1538) 174 mg/dL 70-110 H TESTED AT [address] [address] POCT-GLUCOSE [id number] 21:00:00* Test Item Value Reference Range Interpretation Comments POC-GLUCOSE METER (BEAKER) (test code = 1538) 130 mg/dL 70-110 H TESTED AT [address] [address] POCT-GLUCOSE [id number] 17:32:00* Test Item Value Reference Range Interpretation Comments POC-GLUCOSE METER (BEAKER) (test code = 1538) 105 mg/dL 70-110 TESTED AT [address] [address] POCT-GLUCOSE [id number] 16:50:00* Test Item Value Reference Range Interpretation Comments POC-GLUCOSE METER (BEAKER) (test code = 1538) 104 mg/dL 70-110 TESTED AT [address] [address] PET, CARDIAC PERFUSION MULTIPLE STUDIES, REST AND [id number] 16:08:00 Reason for exam:->Pre-op, atypical chest pain, CADFINAL REPORT PROCEDURE: Rest/Stress MYOCARDIAL PERFUSION PET with regadenoson\\XA9\\CPT CODE: [id number]: Atypical chest pain, CAD, preoperative evaluationHISTORY: Cardiac [...] also showed norm al perfusion. Signed: Angel Bro MDReport Verified Date/Time: 04/30/2017 16 :08:35 Reading Location: [address] Reading Room Electronicall y signed by: ANGEL BRO MD on 04/30/2017 04:08 PM POCT-GLUCOSE METER 2017-04-30 12:26:00* Test Item Value Reference Range Interpretation Comments POC-GLUCOSE METER (BEAKER) (test code = 1538) 121 mg/dL 70-110 H TESTED AT [address] [address] POCT-GLUCOSE [id number] 08:14:00* Test Item Value Reference Range Interpretation Comments POC-GLUCOSE METER (BEAKER) (test code = 1538) 121 mg/dL 70-110 H TESTED AT [address] [address] POCT-GLUCOSE [id number] 08:14:00* Test Item Value Reference Range Interpretation Comments POC-GLUCOSE METER (BEAKER) (test code = 1538) 44 mg/dL 70-110 L Notified AUBREE BIGGS/TESTED AT [address] [address] POCT-GLUCOSE [id number] 21:16:00* Test Item Value Reference Range Interpretation Comments POC-GLUCOSE METER (BEAKER) (test code = 1538) 205 mg/dL 70-110 H TESTED AT [address] [address] POCT-GLUCOSE [id number] 17:27:00* Test Item Value Reference Range Interpretation Comments POC-GLUCOSE METER (JAEL) (test code = 1538) 154 mg/dL 70-110 H TESTED AT [facility] [address] [facility] [address] CT, LAURENNGANIRUDH [id number] 14:04:00Reason for exam:->Symptoms onset less than 6 [...] cynthia stenoses. There is moderate left mid [employer]PECTOR stenosis. The remaining proximal c ircle of [place] vessels demonstrate no high grade stenosis or major branch occlu urmila. No saccular aneurysm is seen. CT perfusion:There is symmetrical cerebral b lood volume in both cerebral hemispheres. There is diminished cerebral blood wilmer w in the left occipital and mesial temporal lobe in the AIRWORTHINESS INSPECTOR territory. There is corresponding prolonged time to peak and mean transit time. Although nonspecific in the absence of acute ischemia, these findings correlate to the left AIRWORTHINESS INSPECTOR sten osis noted above. Other findings:Cervical spine [...] V2 segment stenoses. 4. Moderate left mid AIRWORTHINESS INSPECTOR, mild to moderate left supraclinoid ICA, and other mild intracranial atherosclerosis stenoses. No [place] m ajor branch occlusion seen. 5. Diminished cerebral perfusion parameters in the l eft AIRWORTHINESS INSPECTOR territory which could correlate to the left AIRWORTHINESS INSPECTOR stenosis. 6. Cervical sp ine degenerative changes. 7. Right lung postsurgical changes with nodular opacit ies, possibly scarring. As lung neoplasm cannot be excluded, chest CT follow up is suggested. Findings discussed with Dr. Parham (neurosurgery) at 1:30 PM Kathi d: Elsa Aguilar Verified Date/Time: 04/29/2017 14:04:03 Jv cabrales Location: [facility] C013V Neuro Reading Room , CAROTID, [id number] 14:04:00 Reason for exam:->Symptoms onset less than [...] cynthia stenoses. There is moderate left mid AIRWORTHINESS INSPECTOR stenosis. The remaining proximal c irc[place] of [place] vessels demonstrate no high grade stenosis or major branch occlu urmila. No saccular aneurysm is seen. CT perfusion:There is symmetrical cerebral b lood volume in both cerebral hemispheres. There is diminished cerebral blood wilmer w in the left occipital and mesial temporal lobe in the AIRWORTHINESS INSPECTOR territory. There is corresponding prolonged time to peak and mean transit time. Although nonspecific in the absence of acute ischemia, these findings correlate to the left [employer]WORTHINESS INSPECTOR sten osis noted above. Other findings:Cervical spine [...] V2 segment stenoses. 4. Moderate left mid AIRWORTHINESS INSPECTOR, mild to moderate left supraclinoid ICA, and other mild intracranial atherosclerosis stenoses. No [place] m ajor branch occlusion seen. 5. Diminished cerebral perfusion parameters in the l eft AIRWORTHINESS INSPECTOR territory which could correlate to the left AIRWORTHINESS INSPECTOR stenosis. 6. Cervical sp ine degenerative changes. 7. Right lung postsurgical changes with nodular opacit ies, possibly scarring. As lung neoplasm cannot be excluded, chest CT follow up is suggested. Findings discussed with Dr. Parham (neurosurgery) at 1:30 PM Kathi d: Elsa Aguilar Verified Date/Time: 04/29/2017 14:04:03 Jv cabrales Location: [facility] C0[facility] Neuro Reading Room , CEREBRAL PERFUSION ANALYSIS [...] cynthia stenoses. There is moderate left mid AIRWORTHINESS INSPECTOR stenosis. The remaining proximal c irc[place] of [place] vessels demonstrate no high grade stenosis or major branch occlu urmila. No saccular aneurysm is seen. CT perfusion:There is symmetrical cerebral b lood volume in both cerebral hemispheres. There is diminished cerebral blood wilmer w in the left occipital and mesial temporal lobe in the AIRWORTHINESS INSPECTOR territory. There is corresponding prolonged time to peak and mean transit time. Although nonspecific in the absence of acute ischemia, these findings correlate to the left AIRWORTHINESS INSPECTOR sten osis noted above. Other findings:Cervical spine [...] V2 segment stenoses. 4. Moderate left mid AIRWORTHINESS INSPECTOR, mild to moderate left supraclinoid ICA, and other mild intracranial atherosclerosis stenoses. No [place] m ajor branch occlusion seen. 5. Diminished cerebral perfusion parameters in the l eft AIRWORTHINESS INSPECTOR territory which could correlate to the left AIRWORTHINESS INSPECTOR stenosis. 6. Cervical sp ine degenerative changes. 7. Right lung postsurgical changes with nodular opacit ies, possibly scarring. As lung neoplasm cannot be excluded, chest CT follow up is suggested. Findings discussed with Dr. Parham (neurosurgery) at 1:30 PM Kathi d: Elsa Aguilareport Verified Date/Time: 04/29/2017 14:04:03 Jv cabrales Location: [address] Neuro Reading Room -GLUCOSE [id number] 13:52:00* Test Item Value Reference Range Interpretation Comments POC-GLUCOSE METER (authorGEN) (test code = 1538) 96 mg/dL 70-110 TESTED AT [address] [address] [id number] 09:45:00* Test Item Value Reference Range Interpretation Comments PARTIAL THROMBOPLASTIN TIME (BEAKER) (test code = 760) 31.9 seconds 22.5-36.0 PROTHROMBIN TIME/[id number] 09:44:00* Test Item Value Reference Range Interpretation Comments PROTIME (BEAKER) (test code = 759) 14.3 seconds 11.7-14.7 INR (BEAKER) (test code = 370) 1.1 <=5.9 RECOMMENDED COUMADIN/WARFARIN INR THERAPY RANGESSTANDARD DOSE: 2.0 - 3.0 Inclu renetta: PROPHYLAXIS for venous thrombosis, systemic embolization; TREATMENT for noé ous thrombosis and/or pulmonary embolus.HIGH RISK: Target INR is 2.5-3.5 for pat ients with mechanical heart valves.BASIC METABOLIC [id number] 09:22:00* Test Item Value Reference Range Interpretation Comments SODIUM (BEAKER) (test code = 381) 138 meq/L 136-145 POTASSIUM (BEAKER) (test code = 379) 4.4 meq/L 3.5-5.1 CHLORIDE (BEAKER) (test code = 382) 101 meq/L 98-107 CO2 (BEAKER) (test code = 355) 25 meq/L 22-29 BLOOD UREA NITROGEN (BEAKER) (test code = 354) 18 mg/dL 7-21 CREATININE (BEAKER) (test code = 358) 1.09 mg/dL 0.57-1.25 GLUCOSE RANDOM (BEAKER) (test code = 652) 190 mg/dL 70-105 H CALCIUM (BEAKER) (test code = 697) 9.3 mg/dL 8.4-10.2 EGFR (BEAKER) (test code = 1092) 66 mL/min/1.73 sq m ESTIMATED GFR IS NOT ACCURATE CREATININE CLEARANCE IN PREDICTING GLOMERULAR FILTRATION RATE. ESTIMATED GFR IS NOT APPLICABLE FOR DIALYSIS PATIENTS. POCT-GLUCOSE [id number] 08:45:00* Test Item Value Reference Range Interpretation Comments POC-GLUCOSE METER (BEAKER) (test code = 1538) 226 mg/dL 70-110 H TESTED AT [facility] [address] [facility] [address] CBC W/PLT COUNT & AUTO [id number] 08:45:00* Test Item Value Reference Range Interpretation Comments WHITE BLOOD CELL COUNT (BEAKER) (test code = 775) 15.3 K/ L 3.5- 10.5 H RED BLOOD CELL COUNT (BEAKER) (test code = 761) 4.25 M/ L 4.63-6 .08 L HEMOGLOBIN (BEAKER) (test code = 410) 12.9 GM/DL 13.7-17.5 L HEMATOCRIT (BEAKER) (test code = 411) 38.1 % 40.1-51.0 L MEAN CORPUSCULAR VOLUME (BEAKER) (test code = 753) 89.6 fL 79. 0-92.2 MEAN CORPUSCULAR HEMOGLOBIN (BEAKER) (test code = 751) 30.4 pg 25.7-32.2 MEAN CORPUSCULAR HEMOGLOBIN CONC (BEAKER) (test code = 752) 33.9 GM/DL 32.3-36.5 RED CELL DISTRIBUTION WIDTH (BEAKER) (test code = 412) 12.8 % 11.6-14.4 PLATELET COUNT (BEAKER) (test code = 756) 251 K/CU MM 150-450 MEAN PLATELET VOLUME (BEAKER) (test code = 754) 10.2 fL 9.4-12 .4 NUCLEATED RED BLOOD CELLS (BEAKER) (test code = 413) 0 /100 WBC 0 -0 NEUTROPHILS RELATIVE PERCENT (BEAKER) (test code = 429) 78 % LYMPHOCYTES RELATIVE PERCENT (BEAKER) (test code = 430) 14 % MONOCYTES RELATIVE PERCENT (BEAKER) (test code = 431) 7 % EOSINOPHILS RELATIVE PERCENT (BEAKER) (test code = 432) 0 % BASOPHILS RELATIVE PERCENT (BEAKER) (test code = 437) 0 % NEUTROPHILS ABSOLUTE COUNT (BEAKER) (test code = 670) 12.01 K/ L 1.78-5.38 H LYMPHOCYTES ABSOLUTE COUNT (BEAKER) (test code = 414) 2.16 K/ L 1.32-3.57 MONOCYTES ABSOLUTE COUNT (BEAKER) (test code = 415) 1.03 K/ L 0. 30-0.82 H EOSINOPHILS ABSOLUTE COUNT (BEAKER) (test code = 416) 0.01 K/ L 0.04-0.54 L BASOPHILS ABSOLUTE COUNT (BEAKER) (test code = 417) 0.03 K/ L 0. 01-0.08 IMMATURE GRANULOCYTES-RELATIVE PERCENT (BEAKER) (test code = 2801) 1 % 0-1 POCT-GLUCOSE [id number] 23:22:00* Test Item Value Reference Range Interpretation Comments POC-GLUCOSE METER (BEAKER) (test code = 1538) 391 mg/dL 70-110 H TESTED AT [facility] [address] [facility] [address] RAD, CHEST, 2 [id number] 22:23:00Reason for exam:->DIZZINESSFINAL REPORT Examination: Two view [...] or acute bony abnormality. Signed: Kirk Gallo Verified Date/Time: 04/28/2017 22:23:08 Reading Location: [address] Reading Room -GLUCOSE [id number] 21:40:00* Test Item Value Reference Range Interpretation Comments POC-GLUCOSE METER (BEAKER) (test code = 1538) 423 mg/dL 70-110 HH Notified AUBREE BIGGS/TESTED AT [address] [address] POCT-GLUCOSE [id number] 17:33:00* Test Item Value Reference Range Interpretation Comments POC-GLUCOSE METER (BEAKER) (test code = 1538) 261 mg/dL 70-110 H TESTED AT [address] [address] POCT-GLUCOSE [id number] 14:05:00* Test Item Value Reference Range Interpretation Comments POC-GLUCOSE METER (BEAKER) (test code = 1538) 393 mg/dL 70-110 H TESTED AT [address] [address] MR, SPINE, CERVICAL, WITHOUT [id number] 12:59:00FINAL REPORT MR cervical spine without contrast [...] MDReport Verified Date/Time: 04/28/2017 12:59:08 Reading Location: [address] Neuro Reading Room Electronically sig martina by: ELSA AGUILAR M.D. on 04/28/2017 12:59 PM POCT-GLUCOSE METER 2017-04-28 08:05:00* Test Item Value Reference Range Interpretation Comments POC-GLUCOSE METER (BEAKER) (test code = 1538) 105 mg/dL 70-110 TESTED AT [facility] [address] [place] [address] [address] [address], SPINE, CERVICAL, WO [id number] 20:12:00Reason for exam:->traumaWhat is the patient's sedation [...] Shayna Verma Date/Time: 04/27/2017 20:12:03 Reading Location: [facility] Radiology Reading Room C METABOLIC [id number] 14:31:00* Test Item Value Reference Range Interpretation Comments SODIUM (BEAKER) (test code = 381) 139 meq/L 136-145 POTASSIUM (BEAKER) (test code = 379) 4.6 meq/L 3.5-5.1 CHLORIDE (BEAKER) (test code = 382) 102 meq/L 98-107 CO2 (BEAKER) (test code = 355) 27 meq/L 22-29 BLOOD UREA NITROGEN (BEAKER) (test code = 354) 16 mg/dL 7-21 CREATININE (BEAKER) (test code = 358) 1.20 mg/dL 0.57-1.25 GLUCOSE RANDOM (BEAKER) (test code = 652) 130 mg/dL 70-105 H CALCIUM (BEAKER) (test code = 697) 9.8 mg/dL 8.4-10.2 EGFR (BEAKER) (test code = 1092) 60 mL/min/1.73 sq m ESTIMATED GFR IS NOT ACCURATE CREATININE CLEARANCE IN PREDICTING GLOMERULAR FILTRATION RATE. ESTIMATED GFR IS NOT APPLICABLE FOR DIALYSIS PATIENTS. CBC W/PLT COUNT & AUTO [id number] 13:57:00* Test Item Value Reference Range Interpretation Comments WHITE BLOOD CELL COUNT (BEAKER) (test code = 775) 8.8 K/ L 3.5- 10.5 RED BLOOD CELL COUNT (BEAKER) (test code = 761) 4.48 M/ L 4.63-6 .08 L HEMOGLOBIN (BEAKER) (test code = 410) 13.5 GM/DL 13.7-17.5 L HEMATOCRIT (BEAKER) (test code = 411) 40.5 % 40.1-51.0 MEAN CORPUSCULAR VOLUME (BEAKER) (test code = 753) 90.4 fL 79. 0-92.2 MEAN CORPUSCULAR HEMOGLOBIN (BEAKER) (test code = 751) 30.1 pg 25.7-32.2 MEAN CORPUSCULAR HEMOGLOBIN CONC (BEAKER) (test code = 752) 33.3 GM/DL 32.3-36.5 RED CELL DISTRIBUTION WIDTH (BEAKER) (test code = 412) 13.0 % 11.6-14.4 PLATELET COUNT (BEAKER) (test code = 756) 265 K/CU MM 150-450 MEAN PLATELET VOLUME (BEAKER) (test code = 754) 10.5 fL 9.4-12 .4 NUCLEATED RED BLOOD CELLS (BEAKER) (test code = 413) 0 /100 WBC 0 -0 NEUTROPHILS RELATIVE PERCENT (BEAKER) (test code = 429) 57 % LYMPHOCYTES RELATIVE PERCENT (BEAKER) (test code = 430) 30 % MONOCYTES RELATIVE PERCENT (BEAKER) (test code = 431) 8 % EOSINOPHILS RELATIVE PERCENT (BEAKER) (test code = 432) 4 % BASOPHILS RELATIVE PERCENT (BEAKER) (test code = 437) 1 % NEUTROPHILS ABSOLUTE COUNT (BEAKER) (test code = 670) 4.99 K/ L 1.78-5.38 LYMPHOCYTES ABSOLUTE COUNT (BEAKER) (test code = 414) 2.64 K/ L 1.32-3.57 MONOCYTES ABSOLUTE COUNT (BEAKER) (test code = 415) 0.72 K/ L 0. 30-0.82 EOSINOPHILS ABSOLUTE COUNT (BEAKER) (test code = 416) 0.34 K/ L 0.04-0.54 BASOPHILS ABSOLUTE COUNT (BEAKER) (test code = 417) 0.07 K/ L 0. 01-0.08 IMMATURE GRANULOCYTES-RELATIVE PERCENT (BEAKER) (test code = 2801) 1 % 0-1 CT, BRAIN, WITHOUT [id number] 13:57:00Reason for exam:->DIZZINESSWhat is the patient's sedation [...] Aguilar Verified Date/Time: 04/27/2017 13:57:29 Reading Location: [address] Neuro Reading Room [facility] signed by: ELSA AGUILAR M.D. on 04/27/2017 01:57 PM RAD, CHEST, 1 VIEW, NON [id number] 13:42:00Reason for exam:->coughShould this be performed at [...] magnified by technique with sternotomy wires. Signed: Pierre, Art MDReport Verified Date/Time: 04/27/2017 13:42:47 Reading Location: [facility] B1 [id number] Consult Reading Room
[2019-09-13] MEDS: HYDRALAZINE HCL 20 MG/ML VIAL IV PRN ×3 (01:00→08:13)
--- NOTE | 2019-09-13 01:25 | NUR ---
pt noted sitting up in bed c labored breathing. pt states that "i feel like i can't catch my breath." o2 sat 100% on o2 2l nc. dr scott called to room. bipap and vbg ordered. rt called and informed. pt moved to er1 per charge nurse.
[2019-09-13] MEDS ORDERED: LORAZEPAM INJ 2 MG/ML VIAL IV STA (01:48)
[2019-09-13] MEDS ORDERED: LORAZEPAM INJ 2 MG/ML VIAL ONE (01:58)
--- NOTE | 2019-09-13 02:05 | NUR ---
pt placed on bipap by rt at this time.
[2019-09-13 02:31] LABS: CREATINE KINASE MB 4.6 ng/mL (0-5.0)
--- NOTE | 2019-09-13 02:50 | Emergency Department Note ---
History of Present Illnes History of Present Illness Chief Complaint: Respiratory Stated Complaint: PNEUMONIA,UTI History of Present Illness This is a 74 year old male . Historian: Patient Past Medical/Family History Physician Review I have reviewed the patient's past medical and family history. Any updates have been documented here. Past Medical History Recent Fever: Yes Clinical Suspicion of Infectio: Yes New/Unexplained Change in Ment: No Past Medical History: Hypertension, Diabetes, COPD, GA, CVA, TIA, CAD, Cancer, Seizure Disorder, Anxiety, Depression, Other Mental Illness, Hyperlipedemia, Chronic Back Pain Other Medical History: HEP A "URINARY DISORDER" ALZHEIMER/DEMENTIA RENAL CYST SMOKER LUNG CANCER PAD Past Surgical History: CABG, PCI, Back Surgery, Cataract Removal Other Surgery: RLL LOBECTOMY 01/2006 Social History Smoking Cessation: Current every day smoker Counseling Performed: No Alcohol Use: None Any Illegal Drug Use: No TB Exposure/Symptoms: No Physically hurt or threatened: No Other Last Tetanus: utd Any Pre-Existing Lines (PICC,: No Is patient up to date on immun: Yes Last Flu: utd Last Pneumovax: utd Review of Systems Review of Systems Constitutional: fever, weakness EENTM: no symptoms Cardiovascular: no symptoms Respiratory: cough Gastrointestinal: no symptoms Genitourinary: no symptoms Musculoskeletal: no symptoms Integumentary: no symptoms Neurological: no symptoms Psychological: no symptoms Endocrine: no symptoms Hematological/Lymphatic: no symptoms Review of other systems All other systems reviewed and negative. Physical Exam Related Data Allergies: Coded Allergies: fentanyl (Verified Allergy, Mild, 03/08/19) RASH levofloxacin (Verified Allergy, Unknown, 03/08/19) OTHER Triage Vital Signs Vital Signs Date Time Temp Pulse Resp B/P (MAP) Pulse Ox O2 Delivery O2 Flow Rate FiO2 09/12/19 18:47 100.0 105 24 163/91 96 09/13/19 00:30 3.0 Physical Exam CONSTITUTIONAL Constitutional: ill appearing HENT HENT: normocephalic, atraumatic, oropharynx clear/moist, nose normal HENT - Ear: left ext ear normal, right ext ear normal EYES Eyes: PERRL, conjunctivae normal NECK Neck: ROM normal PULMONARY Pulmonary: other (tachypnea) CARDIOVASCULAR Cardiovascular: normal rate, tachycardia GASTROINTESTINAL Abdominal: soft, nontender, bowel sounds normal GENITOURINARY Genitourinary: exam deferred SKIN Skin: warm, dry MUSCULOSKELETAL Musculoskeletal: ROM normal NEUROLOGICAL Neurological: alert, oriented x 3, no gross motor or sensory deficits PSYCHOLOGICAL Psychiatric/behavioral: mood/affect normal, judgement normal Results Laboratory Result Diagram: 09/12/19181409/12/195 Laboratory Laboratory Tests Test 09/13/19 01:45 09/12/19 23:10 09/12/19 19:20 09/12/19 18:54 Creatine Kinase 68 IU/L (30-200) Creatine Kinase MB 4.60 ng/mL (0-5.0) Troponin I 0.025 ng/mL (0-0.300) Urine Color Yellow (YELLOW) Urine Clarity Cloudy (CLEAR) Urine pH 7 (5 - 7) Urine Specific [place] 1.020 (1.010-1.025) Urine Protein 2+ (NEGATIVE) Urine Glucose (UA) Negative (NEGATIVE) Urine Ketones Negative (NEGATIVE) Urine Blood Trace (NEGATIVE) Urine Nitrite Positive (NEGATIVE) Urine Bilirubin Negative (NEGATIVE) Urine Urobilinogen 0.2 mg/dL (0.2 - 1) Urine Leukocyte Esterase 1+ (NEGATIVE) Urine RBC 0-5 /HPF (0-5) Urine WBC >50 /HPF (0-5) Urine Epithelial Cells Few /LPF (NONE) Urine Bacteria Moderate /HPF (NONE) Lactic Acid Level 1.3 mmol/L (0.5-2.0) Test 09/12/19 18:15 White Blood Count 8.16 x10e3/uL (4.8-10.8) Red Blood Count 4.08 x10e6/uL (4.3-5.7) Hemoglobin 11.7 g/dL (14.0-18.0) Hematocrit 35.5 % (38.2-49.6) Mean Corpuscular Volume 87.0 fL (81-99) Mean Corpuscular Hemoglobin 28.7 pg (28-32) Mean Corpuscular Hemoglobin Concent 33.0 g/dL (31-35) Red Cell Distribution Width 13.6 % (11.7-14.4) Platelet Count 265 x10e3/uL (140-360) Neutrophils (%) (Auto) 69.4 % (38.7-80.0) Lymphocytes (%) (Auto) 20.0 % (18.0-39.1) Monocytes (%) (Auto) 8.3 % (4.4-11.3) Eosinophils (%) (Auto) 1.3 % (0.0-6.0) Basophils (%) (Auto) 0.4 % (0.0-1.0) Neutrophils # (Auto) 5.7 (2.1-6.9) Lymphocytes # (Auto) 1.6 (1.0-3.2) Monocytes # (Auto) 0.7 (0.2-0.8) Eosinophils # (Auto) 0.1 (0.0-0.4) Basophils # (Auto) 0.0 (0.0-0.1) Absolute Immature Granulocyte (auto 0.05 x10e3/uL (0-0.1) Sodium Level 139 mmol/L (136-145) Potassium Level 3.6 mmol/L (3.5-5.1) Chloride Level 100 mmol/L (98-107) Carbon Dioxide Level 26 mmol/L (22-29) Anion Gap 16.6 mmol/L (8-16) Blood Urea Nitrogen 14 mg/dL (7-26) Creatinine 0.86 mg/dL (0.72-1.25) Estimat Glomerular Filtration Rate > 60 ML/MIN (60-) BUN/Creatinine Ratio 16 (6-25) Glucose Level 145 mg/dL (74-118) Calcium Level 9.7 mg/dL (8.4-10.2) Total Bilirubin 0.2 mg/dL (0.2-1.2) Aspartate Amino Transf (AST/SGOT) 19 IU/L (5-34) Alanine Aminotransferase (ALT/SGPT) 14 IU/L (0-55) Alkaline Phosphatase 91 IU/L (40-150) Creatine Kinase 62 IU/L (30-200) Creatine Kinase MB 3.50 ng/mL (0-5.0) Troponin I 0.027 ng/mL (0-0.300) B-Type Natriuretic Peptide 259.0 pg/mL (0-100) Total Protein 7.9 g/dL (6.5-8.1) Albumin 3.5 g/dL (3.5-5.0) Globulin 4.4 g/dL (2.3-3.5) Albumin/Globulin Ratio 0.8 (0.8-2.0) Imaging Y: Yes Impressions CT chest : " scattered b/l tree-in-bud opacities.......small focal left lower lobe airspace opacity" Assessment & Plan Assessment & Plan Problems: (1) Pneumonia (2) Urinary tract infection (3) Elevated blood pressure reading (4) Tobacco abuse Assessment & Plan Plan : patient with recent diagnosis of pneumonia from OSH. Patient with (+) findings of pneumonia on CT chest. COVID testing done and results pending . Patient admitted to the hospitalist but while awaiting for bed, patient became dyspneic. VBG done with normal CO2 and pH. Patient expectantly to be admitted to hospital for UTI and Pneumonia Depart Disposition: ADMITTED Last Vital Signs Date Time Temp Pulse Resp B/P (MAP) Pulse Ox O2 Delivery O2 Flow Rate FiO2 09/13/19 01:00 199/94 09/13/19 00:57 98.1 95 20 97 09/13/19 00:30 3.0 Home Meds Reported Medications Baclofen (BACLOFEN) 10 Mg Tablet, 10 MG PO Q8H PRN for MUSCLE SPASMS 09/12/19 Glimepiride (GLIMEPIRIDE) 4 Mg Tablet, 4 MG PO DAILY 09/12/19 Gabapentin (GABAPENTIN) 300 Mg Capsule, 300 MG PO TID 09/12/19 Nitroglycerin (NITROGLYCERIN) 0.4 Mg Tab.subl, 0.4 MG SL Q5MIN PRN for CHEST PAIN q5min x 3 max prn for chest pain 09/12/19 Tamsulosin Hcl* (FLOMAX*) 0.4 Mg Cap, 0.4 MG PO DAILY 09/12/19 Trazodone Hcl (TRAZODONE HCL) 100 Mg Tablet, 100 MG PO HS 09/12/19 Atorvastatin Calcium (ATORVASTATIN CALCIUM) 40 Mg Tablet, 40 MG PO HS 09/12/19 Ondansetron Hcl (ONDANSETRON HCL) 4 Mg Tablet, 4 MG PO TID PRN for NAUSEA 09/12/19 Alprazolam (ALPRAZOLAM) 2 Mg Tablet, 2 MG PO TID PRN for ANXIETY 09/12/19 Finasteride (FINASTERIDE) 5 Mg Tablet, 5 MG PO DAILY 09/12/19 Metformin Hcl (METFORMIN HCL) 1,000 Mg Tablet, 1000 MG PO BID 09/12/19 Hydrocodone Bit/Acetaminophen (HYDROCODON-ACETAMINOPHN 10-325) 1 Each Tablet, 1 TAB PO Q6H PRN for MODERATE PAIN (4-6) 09/12/19 Medications in the ED Sodium Chloride 1,000 ml @ 0 mls/hr Q0M STAT IV Last administered on 09/12/19at 19:52; Admin Dose 999 MLS/HR; Start 09/12/19 at 19:23; Stop 09/12/19 at 19:26; Status DC Piperacillin Sod/ Tazobactam Sod 50 ml @ 50 mls/hr 0300,0900,1500,2100 IV Last administered on 09/12/19 19:52; Admin Dose 50 MLS/HR; Start 09/12/19 at 21:00; Stop 09/19/19 at 20:59 Morphine Sulfate 2 mg NOW STAT IV Last administered on 09/12/19at 20:38; Admin Dose 2 MG; Start 09/12/19 at 20:10; Stop 09/12/19 at 20:22; Status DC Sodium Chloride 1,000 ml @ 125 mls/hr Q8H IV Last administered on 09/12/19at 22:22; Admin Dose 125 MLS/HR; Start 09/12/19 at 22:00; Stop 10/12/19 at 21:59 Aspirin 81 mg PRN ONCE PO ; Start 09/12/19 at 22:00; Stop 09/12/19 at 22:18; Status DC Attestation Medications in the ED Sodium Chloride 1,000 ml @ 0 mls/hr Q0M STAT IV Last administered on 09/12/19 19:52; Admin Dose 999 MLS/HR; Start 09/12/19 at 19:23; Stop 09/12/19 at 19:26; Status DC Piperacillin Sod/ Tazobactam Sod 50 ml @ 50 mls/hr 0300,0900,1500,2100 IV Last administered on 09/12/19at 19:52; Admin Dose 50 MLS/HR; Start 09/12/19 at 21:00; Stop 09/19/19 at 20:59 Morphine Sulfate 2 mg NOW STAT IV Last administered on 09/12/19at 20:38; Admin Dose 2 MG; Start 09/12/19 at 20:10; Stop 09/12/19 at 20:22; Status DC Sodium Chloride 1,000 ml @ 125 mls/hr Q8H IV Last administered on 09/12/19at 22:22; Admin Dose 125 MLS/HR; Start 09/12/19 at 22:00; Stop 10/12/19 at 21:59 Aspirin 81 mg PRN ONCE PO ; Start 09/12/19 at 22:00; Stop 09/12/19 at 22:18; Status DC SUKI ANAND DO September 13, 2019 02:50
[2019-09-13] MEDS: PIPER-TAZ 3.375 GM 50 ML IV SCH ×4 (03:50→22:21)
--- NOTE | 2019-09-13 04:35 | NUR ---
PATIENT ARRIVED TO THE FLOOR, AWAKE ALERT, JULIEN PATENT, IV'S PATENT, ORIENTED TO STAFF AND POLICIES, CALL LIGHT WITHIN REACH, BED ALARM ACTIVATED FOR SAFETY, ADVISED NOT TO GET UP W/O ASSISTANCE
[2019-09-13] MEDS: SODIUM CHLORIDE 0.9% 1000ML 1,000 ML IV SCH ×2 (06:23→11:11)
[2019-09-13] MEDS: HYDROCODONE/APAP 10MG-325MG TAB PO PRN ×3 (06:27→22:21)
[2019-09-13 07:50] LABS: BASOPHILS % 0.5 % (0.0-1.0); EOSINOPHILS # (AUTO) 0.1 (0.0-0.4); EOSINOPHILS % 1.5 % (0.0-6.0); HEMATOCRIT 36.6 % (38.2-49.6); LYMPHOCYTES # (AUTO) 1.6 (1.0-3.2); LYMPHOCYTES % 18.9 % (18.0-39.1); MEAN CORPUSCULAR HGB CONC 32.8 g/dL (31-35); MEAN CORPUSCULAR VOLUME 88.4 fL (81-99); MONOCYTES # (AUTO) 0.6 (0.2-0.8); MONOCYTES % 6.6 % (4.4-11.3); NEUTROPHILS % 71.4 % (38.7-80.0); PLATELET COUNT 256 x10e3/uL (140-360); RED BLOOD COUNT 4.14 x10e6/uL (4.3-5.7); RED CELL DISTRIBUTION WIDTH 13.6 % (11.7-14.4)
[2019-09-13 08:56] LABS: ALANINE AMINOTRANSFERASE 14 IU/L (0-55); ALBUMIN 3.3 g/dL (3.5-5.0); ALBUMIN/GLOBULIN RATIO 0.8 (0.8-2.0); ALKALINE PHOSPHATASE 87 IU/L (40-150); ANION GAP 16.6 mmol/L (8-16); BLOOD UREA NITROGEN 10 mg/dL (7-26); BUN/CREATININE RATIO 14 (6-25); CALCIUM 8.8 mg/dL (8.4-10.2); CARBON DIOXIDE 25 mmol/L (22-29); CHLORIDE 100 mmol/L (98-107); CREATININE, SERUM 0.73 mg/dL (0.72-1.25); EST GLOMERULAR FILTRATION RATE > 60 ML/MIN (60-); GLUCOSE 159 mg/dL (74-118); POTASSIUM 3.6 mmol/L (3.5-5.1); SODIUM 138 mmol/L (136-145)
[2019-09-13] MEDS ORDERED: DEXTROSE 50% SYRINGE 50 ML IV PRN (09:00)
[2019-09-13] MEDS ORDERED: BENZONATATE 100 MG CAP PO PRN (09:00)
[2019-09-13] MEDS ORDERED: MAGNESIUM HYDROXIDE 30 ML UDC PO PRN (09:00)
[2019-09-13] MEDS ORDERED: ACETAMINOPHEN 325 MG TAB PO PRN (09:00)
[2019-09-13] MEDS ORDERED: ALBUTEROL/IPRATROPIUM 3 ML NEB NEB PRN (09:00)
[2019-09-13] MEDS ORDERED: NITROGLYCERIN 0.4 MG SUBL SL PRN (09:00)
[2019-09-13 09:17] LABS: CREATINE KINASE MB 3.2 ng/mL (0-5.0)
[2019-09-13] MEDS: CLOPIDOGREL BISULFATE 75 MG TAB PO SCH (09:26)
[2019-09-13] MEDS: FINASTERIDE 5 MG TAB PO SCH (09:26)
[2019-09-13] MEDS: SENNOSIDES 8.6 MG TAB PO SCH ×2 (09:26→16:08)
[2019-09-13] MEDS: GABAPENTIN 300 MG CAP PO SCH ×3 (09:26→22:21)
[2019-09-13] MEDS: TAMSULOSIN HCL 0.4 MG CAP PO SCH (09:26)
[2019-09-13] MEDS: CELECOXIB 200 MG CAP PO SCH ×2 (09:27→16:08)
[2019-09-13] MEDS ORDERED: ALBUTEROL/IPRATROPIUM 3 ML NEB NEB SCH (09:30)
[2019-09-13] MEDS: ALPRAZOLAM 1 MG TAB PO PRN (09:33)
[2019-09-13] MEDS: BACLOFEN 10 MG TAB PO PRN ×2 (09:33→22:22)
[2019-09-13] MEDS ORDERED: IPRATROPIUM/ALBUTEROL SULFATE 4 GM INH INH PRN (10:30)
[2019-09-13] MEDS: IPRATROPIUM/ALBUTEROL SULFATE 4 GM INH INH SCH ×3 (11:00→19:00)
--- NOTE | 2019-09-13 11:00 | NUR ---
Dr. Fish and Dr. Hendrickson were both here to see pt and states pt can be transferred out of obs unit with telemetry as soon as bed becomes available.
--- NOTE | 2019-09-13 11:16 | Diagnostic Imaging Report ---
I have reviewed the below preliminary report provided by Dr. Mcfarlane and agree with the described findings. EXAM: CT Chest WITHOUT contrast INDICATION: Cough COMPARISON: Chest x-ray dated 03/08/2019 TECHNIQUE: Chest was scanned utilizing a multidetector helical scanner from the lung apex through the level of the adrenal glands without administration of IV contrast. Absence of intravenous contrast decreases sensitivity for detection of lymphadenopathy and vascular pathology. Coronal and sagittal reformations were obtained. Routine protocol was performed. IV CONTRAST: None COMPLICATIONS: None RADIATION DOSE: Total DLP: 517.3 mGy*cm Estimated effective dose: (DLP x 0.014 x size factor) mSv CTDIvol has been reviewed. It is below the limits set by the Radiation Protocol Committee (RPC). FINDINGS: LINES/ TUBES: None. LUNGS, PLEURA, AND AIRWAYS: Scattered bilateral tree-in-bud opacities as well as focal left lower lobe airspace opacity (series 3, image 98). Right upper lobe scarring with mild traction bronchiectasis. Elevated right hemidiaphragm. Right basilar scarring. Airways are normal. Right lower lobe calcified pleural plaques and small loculated appearing effusion. Mucous plugging is seen within right lower lobe segmental bronchus (series 3, image 64). HEART AND MEDIASTINUM: The thyroid gland is normal. Mediastinal lymphadenopathy. No hilar lymphadenopathy. The heart is normal in size.. There is no pericardial effusion. Severe atherosclerotic calcification of aorta and coronary arteries. Evidence of CABG surgery. UPPER ABDOMEN: Unremarkable. BONES: Partially seen L1 vertebral body increased sclerosis and mild superior endplate compression deformity. Median sternotomy wires. SOFT TISSUES: Small bilateral gynecomastia, left slightly more than right. IMPRESSION: 1. Scattered bilateral tree-in-bud opacities, suggestive of infectious/inflammatory process. There is also small focal left lower lobe airspace opacity, concerning for developing pneumonia. 2. Mediastinal lymphadenopathy, likely reactive. 3. Partially seen L1 vertebral body increased sclerosis and mild superior endplate compression deformity. Recommend correlation with dedicated lumbar spine CT 4. Trace loculated appearing right pleural effusion with adjacent pleural thickening and calcified pleural plaques. Signed by: Yolanda Ward MD on 09/13/2019 11:13 AM
--- NOTE | 2019-09-13 11:54 | NUR ---
consult uti lisa anxiety [id number]
--- NOTE | 2019-09-13 13:06 | NUR ---
WOUND CARE CONSULT FOR SCREENING R/T 14 ALEKSEY FLEMING PRESSURE RELATED WOUNDS RECORDED NURSING MAINTAINING MODERATE PUP STATUS AND INTERVENTIONS Addendum: 09/13/19 at 1308 by Natan Pardo RN Amended: Links added.
[2019-09-13] MEDS: INSULIN LISPRO 100 UNIT/1 ML 3ML VIAL SQ SCH ×3 (13:11→21:00)
[2019-09-13] MEDS: ENOXAPARIN SOD INJ 40 MG/0.4 ML SYR SC SCH (16:08)
[2019-09-13] MEDS: ATORVASTATIN 40 MG TAB PO SCH (22:21)
[2019-09-13] MEDS: TRAZODONE HCL 50 MG TAB PO SCH (22:21)
--- NOTE | 2019-09-13 22:21 | Consultation ---
DATE OF CONSULTATION: REASON FOR CONSULTATION: Sepsis, UTI, and pyelonephritis. HISTORY OF PRESENT ILLNESS: This patient who is a 74-year-old white male does not really provide meaningful information, comes in with fever and chills, not doing well. The patient has underlying history of dementia and anxiety, Alzheimer's, renal cyst, lung cancer, history of CABG, history of PCI, back surgery, cataract surgery, right lower lobe lobectomy on February 19, 2006. The patient presently continue to smoke. The patient comes into the emergency room because he was not feeling well, fever, chills. The patient came to emergency room, where he was admitted. Blood cultures obtained. Urine cultures obtained. Apparently, he does self catheterization still. Apparently, he was recently in the hospital with UTI. LABORATORY DATA: White count 8.4, hemoglobin 12, and hematocrit 36. His COVID-19 was checked, it came back negative. REVIEW OF SYSTEMS: Denies any. PHYSICAL EXAMINATION: GENERAL: He is alert and not really a good source of information. VITAL SIGNS: Stable. Currently afebrile. When he first came it was 100. His heart rate 103, respiration 22. HEENT: He is not icteric. NECK: Supple. CHEST: Clear bilateral. HEART: S1, S2. No S3, S4, or murmur. ABDOMEN: Soft. Bowel sounds present. No tenderness. EXTREMITIES: No edema. SKIN: No rash. IMPRESSION: 1. Sepsis on admission, pyelonephritis, concerned about the drug-resistant and the patient was recently in the hospital. Agree with blood cultures and urine cultures. Agree with Zosyn. 2. Diabetes mellitus. Continue with insulin. Accu-Chek and followup. 3. Dementia. 4. Osteoarthritis, follow. 5. History of lung cancer. 6. Benign prostate hypertrophy. 7. Continue hypercholesteremia. Continue medication as ordered. Discussed with the medical team, could be transferred to out of [place] [id number], since his COVID-19 is negative. MD HERMINIA Ballesteros/CHARITY /[id number]
[2019-09-14] VITALS (9 sets, daily range): BP systolic 124–193; BP diastolic 63–86
[2019-09-14] MEDS: HYDROCODONE/APAP 10MG-325MG TAB PO PRN ×4 (01:29→20:39)
[2019-09-14] MEDS: PIPER-TAZ 3.375 GM 50 ML IV SCH ×4 (03:28→20:13)
[2019-09-14] MEDS: SODIUM CHLORIDE 0.9% 1000ML 1,000 ML IV SCH (05:25)
[2019-09-14] MEDS: HYDRALAZINE HCL 20 MG/ML VIAL IV PRN ×2 (06:29→20:39)
[2019-09-14] MEDS: BACLOFEN 10 MG TAB PO PRN (06:30)
[2019-09-14] MEDS: ALPRAZOLAM 1 MG TAB PO PRN (06:30)
[2019-09-14] MEDS: IPRATROPIUM/ALBUTEROL SULFATE 4 GM INH INH SCH ×4 (07:00→19:00)
[2019-09-14] MEDS: TAMSULOSIN HCL 0.4 MG CAP PO SCH (08:50)
[2019-09-14] MEDS: INSULIN LISPRO 100 UNIT/1 ML 3ML VIAL SQ SCH ×4 (08:50→20:14)
[2019-09-14] MEDS: CELECOXIB 200 MG CAP PO SCH ×2 (08:50→17:15)
[2019-09-14] MEDS: GABAPENTIN 300 MG CAP PO SCH ×3 (08:50→20:13)
[2019-09-14] MEDS: CLOPIDOGREL BISULFATE 75 MG TAB PO SCH (08:50)
[2019-09-14] MEDS: SENNOSIDES 8.6 MG TAB PO SCH ×2 (08:51→17:15)
[2019-09-14] MEDS: FINASTERIDE 5 MG TAB PO SCH (08:51)
--- NOTE | 2019-09-14 10:00 | NUR ---
The pt. refused to work with PT as he wants more pain med. He was reminded that he had med 1 hour ago.
--- NOTE | 2019-09-14 10:14 | Progress Note ---
DATE: SUBJECTIVE: The patient is seen and evaluated. Available labs and notes reviewed. REVIEW OF SYSTEMS: Complaining of right flank pain and discomfort and he is seeking some pain medication. Otherwise, no nausea, vomiting, fever, chills, chest pain, shortness of breath. Appetite seems to be good. PHYSICAL EXAMINATION: VITAL SIGNS: Temperature 98.2, pulse is 108, respiration 20, and blood pressure 160/74. GENERAL: Alert and oriented, no acute distress. CV: S1, S2. CHEST: Equal expansion. Clear to auscultation. No acute distress. Also has some decreased breath sounds on the right side. ABDOMEN: Soft and nontender. No distention. HEENT: Moist. No pallor. No JVD. MEDICATIONS: Medication list reviewed. As far as Infectious Disease point of view, the patient is on Zosyn. LABORATORY STUDIES: No new CBC or BMP available. However, white count was 8.46 and hemoglobin 12 with a platelet count of 256 on 09/13/2019. Serology 09/12/2019; coronavirus PCR not detected. MICROBIOLOGY: Blood culture negative 24 hours. RADIOLOGY STUDIES: CT of the chest showed bilateral tree-in-bud opacities suggestive of infection/inflammatory process. There is a small focal left lower lobe airspace opacity, concerning for developing pneumonia. There is some deep compression deformity at the level of L1, also with trace loculated appearing right pleural effusion with adjacent pleural thickening and calcified pleural plaque, and also showed mediastinal lymphadenopathy. ASSESSMENT AND PLAN: 1. Sepsis on admission. 2. Concern pyelonephritis. 3. Concern loculated pleural effusion. 4. Pulmonary process. 5. Diabetes mellitus. 6. Osteoarthritis. 7. History of lung cancer. 8. L1 compression deformity. 9. Benign prostatic hyperplasia. 10. Hyperlipidemia. The patient is out of COVID-19 unit. He remains with Nevarez cath and we will continue with Zosyn for now. Further management of this patient is based on daily findings on laboratory and physical examination. Please refer to chart for more information. Discussed with Dr. Fish in details. Dictated by Harinder Basilio PA-C (Al) Lexie Fish MD /MODL /[id number]
--- NOTE | 2019-09-14 10:24 | NUR ---
Report to Maria Luisa on MS3 as the pt. is being transferred to room .299
--- NOTE | 2019-09-14 10:56 | NUR ---
The pt. is in process of transfer to room 299.
--- NOTE | 2019-09-14 11:00 | NUR ---
received patient from [facility] 12 Addendum: 09/14/19 at 1135 by Maria Luisa Robles RN received patient from [facility] 1. pt is alert, altered mental status, no s/s of distress. pt oriented to room and call light within reach, instructed pt to call RN for help. side rails up, bed alarm on
--- NOTE | 2019-09-14 16:28 | NUR ---
cigarette was found in blankets on the bed, removed it and education rendered
--- NOTE | 2019-09-14 17:00 | NUR ---
another cigarette was found by the sink in the patient's room. removed by RN
[2019-09-14] MEDS: ENOXAPARIN SOD INJ 40 MG/0.4 ML SYR SC SCH (17:15)
--- NOTE | 2019-09-14 19:35 | NUR ---
RECEIVED REPORT FROM PREVIOUS NURSE. CALL LIGHT WITHIN REACH. PATIENT IN BED. ROUNDING DONE
[2019-09-14] MEDS: TRAZODONE HCL 50 MG TAB PO SCH (20:13)
[2019-09-14] MEDS: ATORVASTATIN 40 MG TAB PO SCH (20:13)
--- NOTE | 2019-09-14 21:57 | NUR ---
PATENT COMPLAINING OF PAIN SO CALLED DR. ANAND ABOUT GETTING A STRONGER PAIN MEDICATION. DR ANAND SAID THE PATIENT ALWAYS COMPLAINS OF PAIN AND WONT PRESCRIBE ANY OTHER PAIN MEDICATION.
[2019-09-15] VITALS (8 sets, daily range): BP systolic 140–192; BP diastolic 72–89
[2019-09-15] MEDS: PIPER-TAZ 3.375 GM 50 ML IV SCH ×4 (03:33→19:51)
[2019-09-15] MEDS: HYDROCODONE/APAP 10MG-325MG TAB PO PRN ×4 (03:45→18:02)
[2019-09-15] MEDS: HYDRALAZINE HCL 20 MG/ML VIAL IV PRN ×2 (04:15→11:38)
[2019-09-15] MEDS: IPRATROPIUM/ALBUTEROL SULFATE 4 GM INH INH SCH ×4 (06:37→20:00)
--- NOTE | 2019-09-15 07:10 | NUR ---
RECEIVED BEDSIDE SHIFT REPORT FROM OFF GOING NURSE. PATIENT IS SITTING UP IN SIDE OF BED. NO ACUTE DISTRESS NOTED. CALL LIGHT WITHIN REACH. BED IN THE LOWEST POSITION.
--- NOTE | 2019-09-15 07:32 | NUR ---
GAVE BEDSIDE SHIFT REPORT TO ONCOMING NURSE. CALL LIGHT WITHIN REACH. PATIENT IN BED.
[2019-09-15] MEDS: ALPRAZOLAM 1 MG TAB PO PRN ×3 (08:09→19:54)
[2019-09-15] MEDS: BACLOFEN 10 MG TAB PO PRN ×2 (08:09→19:58)
[2019-09-15] MEDS: CELECOXIB 200 MG CAP PO SCH ×2 (08:14→16:03)
[2019-09-15] MEDS: GABAPENTIN 300 MG CAP PO SCH ×3 (08:14→19:52)
[2019-09-15] MEDS: SENNOSIDES 8.6 MG TAB PO SCH ×2 (08:14→16:03)
[2019-09-15] MEDS: CLOPIDOGREL BISULFATE 75 MG TAB PO SCH (08:14)
[2019-09-15] MEDS: FINASTERIDE 5 MG TAB PO SCH (08:14)
[2019-09-15] MEDS: TAMSULOSIN HCL 0.4 MG CAP PO SCH (08:14)
[2019-09-15] MEDS: INSULIN LISPRO 100 UNIT/1 ML 3ML VIAL SQ SCH ×4 (08:16→21:00)
[2019-09-15] MEDS: SODIUM CHLORIDE 0.9% 1000ML 1,000 ML IV SCH (10:20)
[2019-09-15] MEDS ORDERED: FENTANYL 25 MCG/HR PATCH TOP SCH (11:15)
[2019-09-15] MEDS: TRAMADOL HCL 50 MG TAB PO SCH ×3 (11:30→23:27)
--- NOTE | 2019-09-15 12:33 | Progress Note ---
DATE: SUBJECTIVE: The patient is seen and evaluated. Available labs and notes reviewed. REVIEW OF SYSTEMS: Currently comfortable in bed. No nausea, vomiting, fever, chills, chest pain, shortness of breath. OBJECTIVE: VITAL SIGNS: Temperature 98.9, pulse is 116, blood pressure 142/72 with a respiration of 24. GENERAL: Alert and oriented, no acute distress. CV: S1 and S2. CHEST: Equal expansion. Clear to auscultation. No acute distress. ABDOMEN: Soft. No distention. Nontender. HEENT: Moist. No pallor. No JVD. EXTREMITIES: Moves all. No cyanosis. MEDICATIONS/ANTIBIOTICS: the patient is on Zosyn. LABORATORY STUDIES: No new CBC or BMP from today. SEROLOGY: Coronavirus PCR 09/12/2019 not detected. MICROBIOLOGY: Blood culture negative 48 hours from 09/12/2019 with urine culture pending from 09/15/2019. RADIOLOGY STUDIES: No new radiology studies. ASSESSMENT AND PLAN: 1. Sepsis on admission-improved. 2. Pyelonephritis. 3. Concern loculated for pleural effusion. 4. Pulmonary process. 5. Diabetes mellitus. 6. History of lung cancer. 7. L1 compression deformity. 8. Benign prostatic hyperplasia. 9. Hyperlipidemia. 10. Osteoarthritis. PLAN: Continue with Zosyn, follow up with urine culture. Monitor vital signs. Attending note noted. Clinically, no acute distress. Please refer to chart for more information. Dictated by Harinder Basilio PA-C (Al) Lexie Fish MD /MODL /[id number]
--- NOTE | 2019-09-15 13:11 | NUR ---
SPOKE TO DR. ANAND THAT PATIENT STATES HE TAKES NORCO 10-325MG Q4H PRN AT HOME. PER MD, IF ABLE TO VERIFY WITH PHARMACY CAN CHANGE CURRENT ORDER FROM Q6H PRN TO Q4H PRN. NURSE WILL CALL PHARMACY TO VERIFY.
--- NOTE | 2019-09-15 13:17 | NUR ---
SPOKE TO GIO AT [facility] IN REGARDS TO NORCO 10-325MG PRESCRIPTION, PER GIO PRESCRIPTION SAYS TO TAKE Q4H NEEDED.
--- NOTE | 2019-09-15 13:50 | NUR ---
REPORT GIVEN TO RECEIVING NURSE. PATIENT IS IN STABLE CONDITION. SITTING UP IN CHAIR. CALL LIGHT WITHIN REACH. BED IN THE LOWEST POSITION.
--- NOTE | 2019-09-15 15:20 | NUR ---
Patient was agitated, asking about pain medication and Xanax which was administered not even 1hr ago, explained him that the pain med is q4h, he was not happy and keep telling to call and he was anger. paed Sayed X2, Boat [employer] notified
[2019-09-15] MEDS: ENOXAPARIN SOD INJ 40 MG/0.4 ML SYR SC SCH (16:04)
--- NOTE | 2019-09-15 16:09 | NUR ---
paged Again X2 and left voice message to Dr Quintero for orders.
--- NOTE | 2019-09-15 18:29 | NUR ---
Call recvd from Sayed new order recvd to Give Dilaudid IV 1mg q4h PRN for pain
[2019-09-15] MEDS: ONDANSETRON HCL INJ 2MG/ML 2ML 2 MG/ML VIAL IV PRN ×2 (19:24→23:26)
[2019-09-15] MEDS: HYDROMORPHONE 1MG/1ML INJ IV PRN ×2 (19:24→23:26)
[2019-09-15] MEDS: TRAZODONE HCL 50 MG TAB PO SCH (19:51)
[2019-09-15] MEDS: ATORVASTATIN 40 MG TAB PO SCH (19:52)
[2019-09-16] VITALS (7 sets, daily range): BP systolic 137–171; BP diastolic 65–92
[2019-09-16] MEDS: SODIUM CHLORIDE 0.9% 1000ML 1,000 ML IV SCH (01:34)
[2019-09-16] MEDS: HYDROCODONE/APAP 10MG-325MG TAB PO PRN ×4 (01:40→21:33)
[2019-09-16] MEDS: PIPER-TAZ 3.375 GM 50 ML IV SCH ×4 (03:12→20:34)
[2019-09-16] MEDS: HYDROMORPHONE 1MG/1ML INJ IV PRN ×4 (05:25→20:35)
[2019-09-16] MEDS: ONDANSETRON HCL INJ 2MG/ML 2ML 2 MG/ML VIAL IV PRN ×2 (05:25→20:34)
[2019-09-16] MEDS: TRAMADOL HCL 50 MG TAB PO SCH ×4 (05:25→23:46)
--- NOTE | 2019-09-16 06:40 | NUR ---
PATIENT IS RESTING COMFORTABLY IN THE BED. BED IS IN THE LOWEST POSITION AND CALL LIGHT IS WITHIN REACH.
--- NOTE | 2019-09-16 07:06 | NUR ---
Received patient lying in bed with eyes open. Respiration even and unlabored without SOB. Call light in reach.
[2019-09-16] MEDS: INSULIN LISPRO 100 UNIT/1 ML 3ML VIAL SQ SCH ×4 (07:30→21:00)
[2019-09-16] MEDS: IPRATROPIUM/ALBUTEROL SULFATE 4 GM INH INH SCH ×4 (07:30→19:30)
[2019-09-16] MEDS: CELECOXIB 200 MG CAP PO SCH ×2 (07:35→17:29)
[2019-09-16] MEDS: SENNOSIDES 8.6 MG TAB PO SCH ×2 (07:36→17:29)
[2019-09-16] MEDS: TAMSULOSIN HCL 0.4 MG CAP PO SCH (07:36)
[2019-09-16] MEDS: GABAPENTIN 300 MG CAP PO SCH ×3 (07:36→20:34)
[2019-09-16] MEDS: FINASTERIDE 5 MG TAB PO SCH (07:36)
[2019-09-16] MEDS: ALPRAZOLAM 1 MG TAB PO PRN (07:36)
[2019-09-16] MEDS: CLOPIDOGREL BISULFATE 75 MG TAB PO SCH (07:36)
[2019-09-16] MEDS ORDERED: MAGNESIUM HYDROXIDE 30 ML UDC PO PRN (10:15)
[2019-09-16] MEDS: NICOTINE 21 MG/EA PATCH TOP SCH (10:29)
[2019-09-16] MEDS: LIDOCAINE HCL 4% 50 ML BTL TOP SCH ×3 (11:48→23:45)
[2019-09-16] MEDS: ALPRAZOLAM 1 MG TAB PO SCH ×2 (14:08→20:34)
[2019-09-16] MEDS: ENOXAPARIN SOD INJ 40 MG/0.4 ML SYR SC SCH (17:29)
--- NOTE | 2019-09-16 18:55 | NUR ---
Report given to highway technician. Respiration even and unlabored without SOB. Call light in reach.
--- NOTE | 2019-09-16 19:20 | NUR ---
received report from day nurse. patient is resting comfortably in the bed. bed is in the lowest position and call light is within reach. will continue to monitor patient.
[2019-09-16] MEDS: TRAZODONE HCL 50 MG TAB PO SCH (20:34)
[2019-09-16] MEDS: BACLOFEN 10 MG TAB PO PRN (20:34)
[2019-09-16] MEDS: ATORVASTATIN 40 MG TAB PO SCH (20:34)
[2019-09-17] VITALS (7 sets, daily range): BP systolic 127–179; BP diastolic 64–87
[2019-09-17] MEDS: ONDANSETRON HCL INJ 2MG/ML 2ML 2 MG/ML VIAL IV PRN ×4 (00:40→23:52)
[2019-09-17] MEDS: HYDROMORPHONE 1MG/1ML INJ IV PRN ×5 (00:40→23:52)
[2019-09-17] MEDS: PIPER-TAZ 3.375 GM 50 ML IV SCH ×2 (03:45→09:00)
[2019-09-17] MEDS: ALPRAZOLAM 1 MG TAB PO SCH ×3 (05:25→20:48)
[2019-09-17] MEDS: TRAMADOL HCL 50 MG TAB PO SCH ×4 (05:25→23:25)
[2019-09-17] MEDS: LIDOCAINE HCL 4% 50 ML BTL TOP SCH ×3 (07:00→23:25)
--- NOTE | 2019-09-17 07:02 | NUR ---
report given to day nurse. patient is resting comfortably in the bed. bed is n the lowest position and call light is within reach.
--- NOTE | 2019-09-17 07:15 | NUR ---
Received patient lying in bed with eyes open. Respiration even and unlabored without SOB. Call light in reach.
[2019-09-17] MEDS: IPRATROPIUM/ALBUTEROL SULFATE 4 GM INH INH SCH ×4 (07:20→19:40)
[2019-09-17] MEDS: INSULIN LISPRO 100 UNIT/1 ML 3ML VIAL SQ SCH ×4 (07:30→21:00)
[2019-09-17] MEDS: CELECOXIB 200 MG CAP PO SCH ×2 (08:00→15:23)
[2019-09-17] MEDS ORDERED: HYDRALAZINE HCL 25 MG TAB PO PRN (08:45)
[2019-09-17] MEDS: SENNOSIDES 8.6 MG TAB PO SCH ×2 (09:00→15:26)
[2019-09-17] MEDS: NICOTINE 21 MG/EA PATCH TOP SCH (09:00)
[2019-09-17] MEDS: GLIMEPIRIDE 2 MG TAB PO SCH (09:00)
[2019-09-17] MEDS: CLOPIDOGREL BISULFATE 75 MG TAB PO SCH (09:00)
[2019-09-17] MEDS: GABAPENTIN 300 MG CAP PO SCH ×3 (09:00→20:48)
[2019-09-17] MEDS: FINASTERIDE 5 MG TAB PO SCH (09:00)
[2019-09-17] MEDS: METFORMIN HCL 500 MG TAB PO SCH ×2 (09:00→17:08)
[2019-09-17] MEDS: METOPROLOL TARTRATE 50 MG TAB PO SCH ×2 (09:00→15:27)
[2019-09-17] MEDS: TAMSULOSIN HCL 0.4 MG CAP PO SCH (09:00)
[2019-09-17] MEDS ORDERED: FENTANYL 25 MCG/HR PATCH TOP SCH (11:15)
[2019-09-17] MEDS: HYDROCODONE/APAP 10MG-325MG TAB PO PRN ×3 (11:46→22:30)
[2019-09-17] MEDS: ENOXAPARIN SOD INJ 40 MG/0.4 ML SYR SC SCH (15:26)
--- NOTE | 2019-09-17 16:57 | Progress Note ---
DATE: SUBJECTIVE: Mr. Meyers remains in the hospital. He is doing well. REVIEW OF SYSTEMS: HEENT: Negative. PULMONARY: Negative. CARDIAC: Negative. Otherwise, all seems to be within normal limit. He has some tremors in the right hand. PHYSICAL EXAMINATION: GENERAL: He is currently alert and oriented, does not seem to be in acute distress. VITAL SIGNS: Stable, afebrile. HEENT: Not icteric. NECK: Supple. CHEST: Clear. HEART: S1, S2. ABDOMEN: Soft. Bowel sounds present. No tenderness. EXTREMITIES: No edema. SKIN: No rash. LABORATORY DATA: Reviewed. His white count is 8.6 and hemoglobin 12. All his cultures are negative. IMPRESSION: Sepsis on admission, source is unclear. Can discontinue antibiotic. I will stop his Zosyn. PLAN: Continue supportive care. Discharge planning per Internal Medicine. Other medical problems seem to be stable from Infectious Disease point of view. MD HERMINIA Ballesteros/CHARITY /[id number]
--- NOTE | 2019-09-17 19:10 | NUR ---
Report given to shift superintendent. Respiration even and unlabored without SOB. Call light in reach.
[2019-09-17] MEDS: ATORVASTATIN 40 MG TAB PO SCH (20:48)
[2019-09-17] MEDS: TRAZODONE HCL 50 MG TAB PO SCH (20:48)
[2019-09-17] MEDS: BACLOFEN 10 MG TAB PO PRN (22:30)
[2019-09-18] VITALS (7 sets, daily range): BP systolic 108–148; BP diastolic 64–75
[2019-09-18] MEDS: HYDROMORPHONE 1MG/1ML INJ IV PRN (05:27)
[2019-09-18] MEDS: ALPRAZOLAM 1 MG TAB PO SCH ×3 (05:27→21:14)
[2019-09-18] MEDS: TRAMADOL HCL 50 MG TAB PO SCH ×3 (05:27→19:46)
[2019-09-18] MEDS: HYDROCODONE/APAP 10MG-325MG TAB PO PRN (06:33)
[2019-09-18 06:34] LABS: BASOPHILS % 0.3 % (0.0-1.0); EOSINOPHILS # (AUTO) 0.4 (0.0-0.4); EOSINOPHILS % 7.1 % (0.0-6.0); HEMATOCRIT 34.3 % (38.2-49.6); HEMOGLOBIN 10.6 g/dL (14.0-18.0); LYMPHOCYTES # (AUTO) 1.8 (1.0-3.2); LYMPHOCYTES % 30.3 % (18.0-39.1); MEAN CORPUSCULAR HEMOGLOBIN 28.9 pg (28-32); MEAN CORPUSCULAR HGB CONC 30.9 g/dL (31-35); MEAN CORPUSCULAR VOLUME 93.5 fL (81-99); MONOCYTES # (AUTO) 0.5 (0.2-0.8); MONOCYTES % 8.5 % (4.4-11.3); NEUTROPHILS # (AUTO) 3.1 (2.1-6.9); NEUTROPHILS % 53.1 % (38.7-80.0); PLATELET COUNT 190 x10e3/uL (140-360); RED BLOOD COUNT 3.67 x10e6/uL (4.3-5.7); RED CELL DISTRIBUTION WIDTH 14.4 % (11.7-14.4)
--- NOTE | 2019-09-18 06:37 | NUR ---
patient is resting comfortably in the bed. no distress noted. bed is in lowest position.
[2019-09-18 06:58] LABS: ANION GAP 12.2 mmol/L (8-16); BLOOD UREA NITROGEN 10 mg/dL (7-26); BUN/CREATININE RATIO 11 (6-25); CALCIUM 8.4 mg/dL (8.4-10.2); CARBON DIOXIDE 26 mmol/L (22-29); CHLORIDE 103 mmol/L (98-107); EST GLOMERULAR FILTRATION RATE > 60 ML/MIN (60-); GLUCOSE 141 mg/dL (74-118); POTASSIUM 4.2 mmol/L (3.5-5.1); SODIUM 137 mmol/L (136-145)
[2019-09-18 07:13] LABS: MAGNESIUM 1.7 MG/DL (1.3-2.1); PHOSPHORUS 4.3 MG/DL (2.3-4.7)
[2019-09-18] MEDS: LIDOCAINE HCL 4% 50 ML BTL TOP SCH ×3 (07:23→23:12)
[2019-09-18] MEDS: CELECOXIB 200 MG CAP PO SCH ×2 (07:24→17:06)
[2019-09-18] MEDS: GLIMEPIRIDE 2 MG TAB PO SCH (08:15)
[2019-09-18] MEDS: METFORMIN HCL 500 MG TAB PO SCH ×2 (08:15→17:06)
[2019-09-18] MEDS: INSULIN LISPRO 100 UNIT/1 ML 3ML VIAL SQ SCH ×4 (08:15→21:00)
[2019-09-18] MEDS: METOPROLOL TARTRATE 50 MG TAB PO SCH ×2 (08:16→17:07)
[2019-09-18] MEDS: IPRATROPIUM/ALBUTEROL SULFATE 4 GM INH INH SCH ×4 (08:16→19:44)
[2019-09-18] MEDS: TAMSULOSIN HCL 0.4 MG CAP PO SCH (08:16)
[2019-09-18] MEDS: FINASTERIDE 5 MG TAB PO SCH (08:16)
[2019-09-18] MEDS: GABAPENTIN 300 MG CAP PO SCH ×3 (08:16→21:14)
[2019-09-18] MEDS: SENNOSIDES 8.6 MG TAB PO SCH ×2 (08:16→17:07)
[2019-09-18] MEDS: CLOPIDOGREL BISULFATE 75 MG TAB PO SCH (08:16)
[2019-09-18] MEDS: NICOTINE 21 MG/EA PATCH TOP SCH (09:00)
[2019-09-18] MEDS: HYDROCODONE/APAP 10MG-325MG TAB PO SCH ×4 (09:50→23:12)
--- NOTE | 2019-09-18 09:58 | NUR ---
Patient was agitated, walked out in hallway, redirected him to room, new orders recvd from Dr Quintero
[2019-09-18] MEDS: METHADONE HCL 10 MG TAB PO SCH ×2 (11:15→17:07)
--- NOTE | 2019-09-18 12:45 | Progress Note ---
DATE: SUBJECTIVE: The patient is seen and evaluated. Available labs and notes reviewed. REVIEW OF SYSTEMS: The patient is comfortable in chair. No nausea, vomiting, fever, chills, chest pain, shortness of breath, rash, dysuria, or polyuria. Has some general pain all over and is waiting for the pain medication. PHYSICAL EXAMINATION: VITAL SIGNS: Temperature 97.6, pulse is 85, respirations 16, and blood pressure 124/90. GENERAL: Alert and oriented, no acute distress. CV: S1 and S2. CHEST: Equal expansion. Clear to auscultation. No acute distress. ABDOMEN: Soft and nontender. No distention. HEENT: Moist. No pallor. No JVD. MEDICATIONS: Medication list reviewed and as far as Infectious Disease point of view, the patient is on no antibiotic nor the medication list. The patient is status post Zosyn. LABORATORY STUDIES: White blood cells 5.77, hemoglobin 10.6, and platelet 190. Sodium 137, potassium 4.2, and creatinine 0.9. Serology; coronavirus PCR 09/12/2019, negative. MICROBIOLOGY: Blood culture and urine culture negative. Blood culture was done of 09/11 and urine culture was done on 09/14. RADIOLOGY STUDIES: No new radiology studies available. ASSESSMENT AND PLAN: 1. Sepsis on admission, resolved. Source unclear. Cultures as above. 2. Fever, resolved. 3. History of lung cancer. 4. Diabetes mellitus type 2. 5. Pleural effusion on the right side. 6. Status post Zosyn. Continue to monitor the patient clinically off the antibiotics. Pain management per others. Further management of this patient is based on daily findings on laboratory and physical examination. Please refer to chart for more information. Dictated by Harinder Basilio PA-C (Al) Lexie Fish MD /MODL /[id number]
--- NOTE | 2019-09-18 16:39 | NUR ---
patient up in bed, not in any distress.
[2019-09-18] MEDS ORDERED: METHADONE HCL 10 MG TAB PO SCH (17:00)
[2019-09-18] MEDS: ENOXAPARIN SOD INJ 40 MG/0.4 ML SYR SC SCH (17:07)
--- NOTE | 2019-09-18 17:42 | NUR ---
Nutrition Screen Note RD Recommendation for Physician: - Continue current diet in light BG fluctuations Plan of Care: RD following, monitoring for tolerance and adequacy Nutrition reason for involvement: LOS Primary Diagnose(s): PNA, UTI PMH: dementia, anxiety, alzheimer's, lung cancer, CABG Ht: 70 in Wt: 184 lb BMI: 26.4 kg/m2 IBW: [address] Assessment: (09/17) 74 YOM admitted for PNA and UTI, seen today for LOS. Pt discussed during am MDR. Pt reports good appetite and po intake currently and [employer]. Pt denies wt loss and reports UBW of 165#. Pt denies any N/V/C/D. Pt with no nutrition questions or concerns at time of visit. Chart reviewed. Labs and meds reviewed, BG fluctuations noted- no hx of DM in chart. Will continue to monitor. Current Diet: 1800 ADA Malnutrition Evaluation (09/18/19) The patient does not meet criteria for a specified degree of malnutrition at this time. Will re-evaluate at follow-up as appropriate. Diet Education Needs Assessment: Diet education not indicated. Diet tolerance: tolerating po Nutrition Care Level: low Signed: Angle Dixon RD, LD, [facility]
[2019-09-18] MEDS: TRAZODONE HCL 50 MG TAB PO SCH (21:14)
[2019-09-18] MEDS: ATORVASTATIN 40 MG TAB PO SCH (21:14)
[2019-09-19] VITALS (7 sets, daily range): BP systolic 91–138; BP diastolic 53–71
[2019-09-19] MEDS: HYDROCODONE/APAP 10MG-325MG TAB PO SCH ×5 (06:00→20:27)
--- NOTE | 2019-09-19 06:00 | NUR ---
JULIEN CARE PERFORMED USING BRAXTON SOAP WIPES
[2019-09-19] MEDS: TRAMADOL HCL 50 MG TAB PO SCH ×4 (06:15→19:20)
[2019-09-19] MEDS: ALPRAZOLAM 1 MG TAB PO SCH ×3 (06:15→19:20)
[2019-09-19] MEDS: IPRATROPIUM/ALBUTEROL SULFATE 4 GM INH INH SCH ×4 (06:50→19:20)
--- NOTE | 2019-09-19 07:11 | NUR ---
[facility] AAOX[facility]. NO SIGNS OF IV INFILTRATION. RESTING IN BED. BED LOCKED AND IN LOW POSITION. CALL LIGHT WITHIN REACH.
[2019-09-19] MEDS: INSULIN LISPRO 100 UNIT/1 ML 3ML VIAL SQ SCH ×4 (07:20→20:26)
[2019-09-19] MEDS: LIDOCAINE HCL 4% 50 ML BTL TOP SCH ×3 (08:23→23:53)
[2019-09-19] MEDS: GABAPENTIN 300 MG CAP PO SCH ×3 (08:29→20:25)
[2019-09-19] MEDS: SENNOSIDES 8.6 MG TAB PO SCH ×2 (08:29→17:00)
[2019-09-19] MEDS: NICOTINE 21 MG/EA PATCH TOP SCH (08:29)
[2019-09-19] MEDS: FINASTERIDE 5 MG TAB PO SCH (08:29)
[2019-09-19] MEDS: CLOPIDOGREL BISULFATE 75 MG TAB PO SCH (08:29)
[2019-09-19] MEDS: METHADONE HCL 10 MG TAB PO SCH ×2 (08:30→17:00)
[2019-09-19] MEDS: CELECOXIB 200 MG CAP PO SCH ×2 (08:35→17:00)
[2019-09-19] MEDS: METOPROLOL TARTRATE 50 MG TAB PO SCH ×2 (08:35→17:00)
[2019-09-19] MEDS: TAMSULOSIN HCL 0.4 MG CAP PO SCH (08:35)
[2019-09-19] MEDS: GLIMEPIRIDE 2 MG TAB PO SCH (08:35)
[2019-09-19] MEDS: METFORMIN HCL 500 MG TAB PO SCH ×2 (08:35→17:00)
--- NOTE | 2019-09-19 11:54 | Progress Note ---
DATE: SUBJECTIVE: The patient is seen and evaluated. Available labs and notes reviewed. Discussed with Dr. Fish. Discussed with the nurse. REVIEW OF SYSTEMS: He wants his pain medication and anxiety medication. Otherwise, no nausea, vomiting, fever, chills, chest pain, shortness of breath, headache, rash, cough, or dysuria. PHYSICAL EXAMINATION: VITAL SIGNS: Temperature 98.5, pulse is 72, respiration 20, and blood pressure 129/58. GENERAL: Alert and oriented, agitated little bit. CV: S1 and S2. CHEST: Equal expansion. Clear to auscultation. No acute distress. ABDOMEN: Soft and nontender. No distention. HEENT: Moist. No pallor. No JVD. EXTREMITIES: Moves all. No acute distress. No significant edema. MEDICATIONS: Medications reviewed and as far as Infectious Disease point of view, remains off antibiotics. LABORATORY STUDIES: No new CBC or BMP from today. Last white count was 5.77 with a creatinine level of 0.9 yesterday. MICROBIOLOGY: No new microbiology studies available. Blood culture and urine culture on 09/11 and 09/14, respectively are negative. RADIOLOGY STUDIES: No new radiology studies available. ASSESSMENT AND PLAN: 1. Sepsis, on admission, resolved. 2. Fever, resolved. 3. History of lung cancer. 4. Diabetes. 5. Pleural effusion. 6. Chronic pain. 7. Anxiety. 8. The patient is status post Zosyn. Continue to monitor the patient off the antibiotics. He would benefit from PT/OT, anxiety and pain management by others. Discussed with Dr. Fish. Please refer to chart for more information. Dictated by Harinder Basilio PA-C (Al) Lexie Fish MD /MODL /[id number]
[2019-09-19] MEDS: ENOXAPARIN SOD INJ 40 MG/0.4 ML SYR SC SCH (17:50)
--- NOTE | 2019-09-19 20:23 | NUR ---
PT SITTING IN CHAIR BANGING PHONE BASE ONTO WALL. PT REPORTS HE IS LEAVING AND NEEDS TO GET OUT. PT REORIENTED TO SITUATION. PART OF PHONE IS MISSING, PT REPORTS HE THREW IT DOWN THE SERVIN. PT INFORMED HE HAS NOT BEEN DISCHARGED AT THIS TIME. PT NOW HOLLERING TILL A MD COMES TO SEE PATIENT. PT HAS STOPPED YELLING, PT REQUESTING NORCO STATES MY BACK HURTS. NIGHT TIME MEDICATIONS ADMINISTERED.
[2019-09-19] MEDS: ATORVASTATIN 40 MG TAB PO SCH (20:25)
[2019-09-19] MEDS: TRAZODONE HCL 50 MG TAB PO SCH (20:25)
[2019-09-20] VITALS (8 sets, daily range): BP systolic 129–173; BP diastolic 52–78
[2019-09-20] MEDS: HYDROCODONE/APAP 10MG-325MG TAB PO SCH ×5 (03:50→21:33)
[2019-09-20] MEDS: ALPRAZOLAM 1 MG TAB PO SCH ×3 (06:00→21:33)
[2019-09-20] MEDS: TRAMADOL HCL 50 MG TAB PO SCH ×5 (06:00→23:20)
--- NOTE | 2019-09-20 06:04 | NUR ---
JULIEN CARE PROVIDED CASTILE SOAP WIPES. TOLERATED WELL.
--- NOTE | 2019-09-20 06:53 | NUR ---
RECEIVED BEDSIDE SHIFT REPORT FROM OFF GOING NURSE. PATIENT IS RESTING IN BED, NO ACUTE DISTRESS NOTED. DENIES PAIN OR DISCOMFORT. CALL LIGHT WITHIN REACH. BED IN THE LOWEST POSITION.
[2019-09-20] MEDS: IPRATROPIUM/ALBUTEROL SULFATE 4 GM INH INH SCH ×4 (07:01→19:25)
--- NOTE | 2019-09-20 07:16 | NUR ---
REPORT GIVEN TO DAYSHIFT NURSE. PATIENT IN STABLE CONDITION. RESTING IN BED. NO SIGNS OF IV INFILTRATION. BED LOCKED AND IN LOW POSITION. CALL LIGHT WITHIN REACH.
[2019-09-20] MEDS: INSULIN LISPRO 100 UNIT/1 ML 3ML VIAL SQ SCH ×4 (07:30→21:00)
[2019-09-20] MEDS: LIDOCAINE HCL 4% 50 ML BTL TOP SCH ×3 (07:50→23:20)
[2019-09-20] MEDS: GLIMEPIRIDE 2 MG TAB PO SCH (08:21)
[2019-09-20] MEDS: TAMSULOSIN HCL 0.4 MG CAP PO SCH (08:21)
[2019-09-20] MEDS: METFORMIN HCL 500 MG TAB PO SCH ×2 (08:21→16:07)
[2019-09-20] MEDS: CELECOXIB 200 MG CAP PO SCH ×2 (08:21→16:07)
[2019-09-20] MEDS: GABAPENTIN 300 MG CAP PO SCH ×3 (08:22→21:22)
[2019-09-20] MEDS: NICOTINE 21 MG/EA PATCH TOP SCH (08:22)
[2019-09-20] MEDS: CLOPIDOGREL BISULFATE 75 MG TAB PO SCH (08:22)
[2019-09-20] MEDS: SENNOSIDES 8.6 MG TAB PO SCH ×2 (08:22→16:08)
[2019-09-20] MEDS: METHADONE HCL 10 MG TAB PO SCH (08:22)
[2019-09-20] MEDS: METOPROLOL TARTRATE 50 MG TAB PO SCH ×2 (08:22→16:08)
[2019-09-20] MEDS: FINASTERIDE 5 MG TAB PO SCH (08:22)
[2019-09-20 09:09] LABS: BASOPHILS % 0.4 % (0.0-1.0); EOSINOPHILS # (AUTO) 0.3 (0.0-0.4); EOSINOPHILS % 4.4 % (0.0-6.0); HEMATOCRIT 32.8 % (38.2-49.6); HEMOGLOBIN 10.1 g/dL (14.0-18.0); LYMPHOCYTES # (AUTO) 1.7 (1.0-3.2); LYMPHOCYTES % 25.6 % (18.0-39.1); MEAN CORPUSCULAR HEMOGLOBIN 28.1 pg (28-32); MEAN CORPUSCULAR HGB CONC 30.8 g/dL (31-35); MEAN CORPUSCULAR VOLUME 91.4 fL (81-99); MONOCYTES # (AUTO) 0.4 (0.2-0.8); MONOCYTES % 6.4 % (4.4-11.3); NEUTROPHILS # (AUTO) 4.2 (2.1-6.9); NEUTROPHILS % 62.9 % (38.7-80.0); PLATELET COUNT 189 x10e3/uL (140-360); RED BLOOD COUNT 3.59 x10e6/uL (4.3-5.7); RED CELL DISTRIBUTION WIDTH 13.9 % (11.7-14.4)
[2019-09-20 09:26] LABS: ANION GAP 14.5 mmol/L (8-16); BLOOD UREA NITROGEN 14 mg/dL (7-26); BUN/CREATININE RATIO 16 (6-25); CARBON DIOXIDE 27 mmol/L (22-29); CHLORIDE 102 mmol/L (98-107); CREATININE, SERUM 0.85 mg/dL (0.72-1.25); EST GLOMERULAR FILTRATION RATE > 60 ML/MIN (60-); GLUCOSE 130 mg/dL (74-118); POTASSIUM 4.5 mmol/L (3.5-5.1); SODIUM 139 mmol/L (136-145)
[2019-09-20] MEDS ORDERED: ONDANSETRON HCL 4 MG ORAL DISINTEGRATING TAB PO PRN (09:30)
--- NOTE | 2019-09-20 12:08 | Progress Note ---
DATE: SUBJECTIVE: The patient is seen and evaluated. Available labs and notes reviewed. Discussed with Dr. Fish. REVIEW OF SYSTEMS: No nausea, vomiting, fever, chills, chest pain, or shortness of breath. Pain seems to be controlled and wants to go home. PHYSICAL EXAMINATION: VITAL SIGNS: Temperature is 97.7, pulse 66, respirations 16, and blood pressure 173/78. GENERAL: Alert and oriented, no acute distress. CV: S1 and S2. CHEST: Equal expansion. Clear to auscultation. No acute distress. ABDOMEN: Soft and nontender. No distention. HEENT: Moist. No pallor. No JVD. EXTREMITIES: Moves all. MEDICATIONS: Medication list reviewed and from Infectious Disease point of view, the patient is currently off antibiotics. LABORATORY STUDIES: White count of 6.75, hemoglobin 10.1, and platelet 189. Sodium 139, potassium 4.5, and creatinine 0.85. No new serology. MICROBIOLOGY: No new microbiology. Blood culture on 09/11 is negative. Urine culture from 09/14 is negative. IMAGING: No new radiology studies available. ASSESSMENT AND PLAN: 1. Sepsis on admission, resolved. 2. Fever, resolved. 3. History of lung cancer. 4. Pleural effusion. 5. Chronic pain. 6. Diabetes. 7. Anxiety. 8. Status post IV antibiotics, Zosyn. 9. Remains off antibiotics. Seems to be doing okay. Needs PT/OT. Pain and anxiety managed by others. Discharge planning in progress. Continue to monitor the patient clinically and follow up with the labs. We will monitor the patient off the antibiotics. Discussed with Dr. Fish in details. Please refer to chart for more information. Dictated by Harinder Basilio PA-C (Al) Lexie Fish MD /MODL /[id number]
[2019-09-20] MEDS: METHADONE HCL 5 MG TAB PO SCH (16:08)
--- NOTE | 2019-09-20 19:10 | NUR ---
BEDSIDE SHIFT REPORT GIVEN TO ONCOMING NURSE. PATIENT IS IN STABLE CONDITION, NO ACUTE DISTRESS NOTED. CALL LIGHT WITHIN REACH. BED IN THE LOWEST POSITION. BED ALARM ON.
--- NOTE | 2019-09-20 19:20 | NUR ---
Patient visited in room during nursing rounds. Patient alert and oriented x2-3. Ambulatory in room with walker prn. Nevarez in place for urinary retention. Pt has chronic pain (especially on right rib area and back) and is on scheduled pain medications. Call machado within reach. Will monitor pt closely.
[2019-09-20] MEDS: TRAZODONE HCL 50 MG TAB PO SCH (21:22)
[2019-09-20] MEDS: ATORVASTATIN 40 MG TAB PO SCH (21:22)
[2019-09-21] VITALS: BP 156/72
[2019-09-21] MEDS ORDERED: HYDROCODONE/APAP 10MG-325MG TAB PO ONE (01:30)
[2019-09-21 04:00] VITALS: BP 149/57
[2019-09-21] MEDS: LIDOCAINE HCL 4% 50 ML BTL TOP SCH (06:05)
[2019-09-21] MEDS: HYDROCODONE/APAP 10MG-325MG TAB PO SCH ×2 (06:05→09:05)
[2019-09-21] MEDS: ALPRAZOLAM 1 MG TAB PO SCH (06:05)
[2019-09-21] MEDS: TRAMADOL HCL 50 MG TAB PO SCH (06:05)
[2019-09-21] MEDS: IPRATROPIUM/ALBUTEROL SULFATE 4 GM INH INH SCH (07:21)
[2019-09-21] MEDS: INSULIN LISPRO 100 UNIT/1 ML 3ML VIAL SQ SCH (07:30)
[2019-09-21 08:09] VITALS: BP 153/80
[2019-09-21 08:40] VITALS: BP 153/80
[2019-09-21] MEDS: GLIMEPIRIDE 2 MG TAB PO SCH (09:02)
[2019-09-21] MEDS: METFORMIN HCL 500 MG TAB PO SCH (09:03)
[2019-09-21] MEDS: TAMSULOSIN HCL 0.4 MG CAP PO SCH (09:03)
[2019-09-21] MEDS: CELECOXIB 200 MG CAP PO SCH (09:03)
[2019-09-21] MEDS: GABAPENTIN 300 MG CAP PO SCH (09:04)
[2019-09-21] MEDS: METOPROLOL TARTRATE 50 MG TAB PO SCH (09:04)
[2019-09-21] MEDS: CLOPIDOGREL BISULFATE 75 MG TAB PO SCH (09:04)
[2019-09-21] MEDS: METHADONE HCL 5 MG TAB PO SCH (09:04)
[2019-09-21] MEDS: FINASTERIDE 5 MG TAB PO SCH (09:05)
[2019-09-21] MEDS: SENNOSIDES 8.6 MG TAB PO SCH (09:05)
[2019-09-21] MEDS: NICOTINE 21 MG/EA PATCH TOP SCH (09:08)
--- NOTE | 2019-09-21 09:40 | NUR ---
pt nolan reomed at this time pt DTV in q6 to 8 hours.
--- NOTE | 2019-09-21 11:48 | NUR ---
pt voided via urinal, 300 cc. no c/o pain at this time.
--- NOTE | 2019-09-21 12:27 | NUR ---
Spoke with pt at bedside regarding home health order. Pt states [email or web address] and would like to resume services with them. Choice letter signed and placed in chart. Copy to pt with company's contact information. IMM letter discussed with pt. He verbalized understanding. Signed copy placed in chart. Copy to pt. CM called and spoke with Nikki at [facility]. Verified that pt is currently on service with them. Informed her that pt is discharging today. Resumption order and clinicals faxed to [phone] / .
--- NOTE | 2019-09-21 12:30 | NUR ---
pt alert resp even and unlabored at this time no distress noted at this time. pt was educated on his medications and prescriptions, pt iv site removed no swelling no redness to site.
--- NOTE | 2019-09-21 12:32 | Progress Note ---
DATE: SUBJECTIVE: The patient is seen and evaluated. Available labs and notes reviewed. Discussed with the nurse. REVIEW OF SYSTEMS: No nausea, vomiting, fever, chills, chest pain, shortness of breath, headache, rash, dysuria, polyuria, or cough. MEDICATIONS: Medication list reviewed. From Infectious Disease point of view, the patient is off antibiotics. LABORATORY STUDIES: White count of 6.75, hemoglobin 10.1, and platelet 189. Sodium 139, potassium 4.5, and creatinine 0.85. Serology; phelan virus PCR 09/12/2019 not detected. MICROBIOLOGY: Blood culture and urine culture 09/11 and 09/14 respectively negative. RADIOLOGY STUDIES: No new radiology studies available. PHYSICAL EXAMINATION: VITAL SIGNS: Temperature 97.1, pulse is 59, respirations 18, and blood pressure 153/80. GENERAL: Alert, oriented, no acute distress. CV: S1-S2. CHEST: Equal expansion. Clear to auscultation. No acute distress. ABDOMEN: Soft, nontender. No distention. HEENT: Moist. No pallor. No JVD. EXTREMITIES: Moves all. No significant edema. ASSESSMENT AND PLAN: 1. Sepsis on admission, resolved. 2. Fever, resolved. 3. Pleural effusion. 4. History of lung cancer. 5. Diabetes. 6. Anxiety. The patient is status post antibiotics. Continue to monitor the patient off antibiotics. Continue PT/OT, anxiety, and pain management per others. Discharge planning in progress. I have discussed with the nurse. Continue to monitor patient off the antibiotic while in the hospital. Please refer to chart for more information. Discussed with Dr. Fish in detail. Dictated by Harinder Basilio PA-C (Al) Lexie Fish MD /MODL /[id number]
--- NOTE | 2019-09-21 22:30 | Discharge Summary ---
PRIMARY CARE PHYSICIAN: Dr. Wilian Vivar. CONSULTANTS: 1. Dr. Lexie Fish. 2. Dr. Burkett. FINAL DIAGNOSES: 1. Acute exacerbation of chronic obstructive pulmonary disease. 2. Atypical pneumonia. 3. Urinary tract infection secondary to urinary retention. 4. Delirium from baseline functional dementia, resolved. 5. Hypertensive urgency. DISCHARGE MEDICATIONS: 1. Resume home medications. 2. Norvasc 5 mg daily. 3. Lopressor 25 mg b.i.d. 4. Senokot S one tablet b.i.d. 5. Keflex 500 mg t.i.d. for 7 days. 6. Celebrex 200 mg b.i.d. 7. Omeprazole 20 mg daily. HOSPITAL COURSE: A 74-year-old male, came in with increasing shortness of breath and coughing and confusion along with urinary tract infection and urinary retention. Nevarez catheter was placed. Cultures have been negative so far. The patient was given antibiotics prior to culture. The patient was stable otherwise. He is comfortable. He had a long course of treatment due to his also exacerbation of COPD, increasing shortness of breath and wheezing, required treatment. His sugar was high due to steroids, but much improved after insulin was given. The patient is otherwise stable at this time. He is on metformin and glimepiride at home. Those medications have been resumed. The patient is otherwise stable. He is breathing well without oxygen. He is ambulatory. Discussed with the patient's spouse, Ms. Minda Meyers, and she is ready for him to go home. Regarding the Nevarez catheter, it will be discontinued. The patient is able to urinate and at times he need to self cath himself, especially when infection about to occur. The patient will have regular diet due to his weight. Continue with activity as tolerated. Resume home medications as above. He needs to follow up with his family physician within a week. The patient is stable and discharged home today. MD BYRON David/MEREDITHL /[id number]
--- NOTE | 2019-10-18 15:05 | Consultation ---
DATE OF CONSULTATION: 09/12/2019 Pain Management consultation REASON FOR CONSULTATION: Pain management, back pain, chronic pain due to pyelonephritis. HISTORY OF PRESENT ILLNESS: This is a 74-year-old white male, did not really provide meaningful information, comes in with excruciating pain in the low back. 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 He still continues to do heavily smoking. He came with history of not feeling well and low back pain. Being admitted due to pain. He does self-catheterization himself. Having history of multiple times urinary tract infection and multiple hospitalizations in the past. REVIEW OF SYSTEMS: Denies any. PHYSICAL EXAMINATION: GENERAL: Pain, but not in acute distress. VITAL SIGNS: Within normal limits. HEENT: Normocephalic. NECK: Supple. LUNGS: Air entry good bilaterally. HEART: Regular rate and rhythm. ABDOMEN: Soft. EXTREMITIES: No edema. LABORATORY DATA: Lab data was noted. ASSESSMENT AND PLAN: The patient has multiple issues ongoing pain, chronic pain syndrome, chronic back pain syndrome, history of pyelonephritis in the past, diabetic neuropathy, dementia, osteoarthritis, history of lung cancer, benign prostatic hypertrophy, having history of chronic failed back surgery the patient with chronic and acute pain syndrome with contributing factors including back surgery in past and pyelonephritis. We will continue supportive care. We will follow him. MD DOMINIC Arvizu/CHARITY /[id number]
== END 2019-09-21 12:10 | disposition home health service (06) | DRG 698 ==
LOC: ER 17:56 → ERHOLD 22:01 → IMCU 09-13 04:20 → MED/SURG 09-13 19:38 → MED/SURG3 09-14 10:50
PROVIDERS: ADMIT Internal Medicine; ATTEND Internal Medicine
DX: T83.511A Infection and inflammatory reaction due to indwelling urethral catheter, initial encounter (principal); A41.9 Sepsis, unspecified organism; J18.9 Pneumonia, unspecified organism; N10 Acute pyelonephritis; J44.0 Chronic obstructive pulmonary disease with (acute) lower respiratory infection; J44.1 Chronic obstructive pulmonary disease with (acute) exacerbation; F11.20 Opioid dependence, uncomplicated; M19.90 Unspecified osteoarthritis, unspecified site; E78.00 Pure hypercholesterolemia, unspecified; I73.9 Peripheral vascular disease, unspecified; R33.9 Retention of urine, unspecified; G30.9 Alzheimer's disease, unspecified; F02.80 Dementia in other diseases classified elsewhere, unspecified severity, without behavioral disturbance, psychotic disturbance, mood disturbance, and anxiety; F41.9 Anxiety disorder, unspecified; E11.9 Type 2 diabetes mellitus without complications; N40.0 Benign prostatic hyperplasia without lower urinary tract symptoms; Z85.118 Personal history of other malignant neoplasm of bronchus and lung; Z95.1 Presence of aortocoronary bypass graft; Z11.59 Encounter for screening for other viral diseases; Z88.1 Allergy status to other antibiotic agents; Z88.8 Allergy status to other drugs, medicaments and biological substances; I16.0 Hypertensive urgency; N31.9 Neuromuscular dysfunction of bladder, unspecified; N39.498 Other specified urinary incontinence; F41.0 Panic disorder [episodic paroxysmal anxiety]; M51.36 Other intervertebral disc degeneration, lumbar region; F17.210 Nicotine dependence, cigarettes, uncomplicated
CPT/HCPCS: 36415; 51700; 71250; 80048; 80053; 81001; 82550; 82553; 82948; 83605; 83735; 83880; 84100; 84484; 85025; 87040; 87086; 93005; 94660; 94664; 96361; 97139; 99251; 99285; J0360; J1170; J1650; J2060; J2270; J2405; J2543; J7030; U0002

== ENCOUNTER 2019-10-09 12:27 | Inpatient (IN) | payer MEDICARE ==
[~2019-10-09] VITALS: Ht 177.8 cm; Wt 73.9 kg
[~2019-10-09 12:27] MED LIST: ALPRAZOLAM2 MG PO; ATORVASTATIN CA40 MG PO; BACLOFEN10 MG PO; FINASTERIDE5 MG PO; FLOMAX0.4 MG PO; GABAPENTIN300 MG PO; GLIMEPIRIDE4 MG PO; HYDROCODON-ACE1 EAC9 PO; METFORMIN HCL1000 MG PO; NITROGLYCERIN0.4 MG SL; ONDANSETRON HCL4 MG PO; TRAZODONE HCL100 MG PO
--- NOTE | 2019-10-09 14:31 | NUR ---
HE AND SITTING OUTSIDE FOR COMFORT
--- NOTE | 2019-10-09 15:29 | NUR ---
PATIENT TO ROOM 10
--- NOTE | 2019-10-09 15:53 | Diagnostic Imaging Report ---
EXAM: CHEST SINGLE (PORTABLE) DATE: 10/09/2019 3:17 PM INDICATION: Altered mental status COMPARISON: 09/28/2019 FINDINGS: The patient is mildly rotated limiting evaluation. There are postsurgical changes prior median sternotomy. Right-sided PICC line is no longer present. There is elevation of the right hemidiaphragm with associated right lower lung zone opacities which are appears slightly more prominent from the prior examination. The remainder the lungs are otherwise clear without evidence for large focal consolidation, pneumothorax, or significant pleural effusion. The cardiomediastinal silhouette is stable in appearance. No acute osseous abnormalities identified. IMPRESSION: Elevation of the right hemidiaphragm and right lower lung zone opacities suggestive of atelectasis. Small effusion and/or underlying airspace process cannot entirely be excluded. No other acute cardiopulmonary process or significant interval change identified from 09/28/2019. Signed by: Dr. Houston Romero MD on 10/09/2019 3:50 PM
[2019-10-09 16:24] LABS: BASOPHILS # (AUTO) 0.1 (0.0-0.1); BASOPHILS % 0.8 % (0.0-1.0); EOSINOPHILS # (AUTO) 0.5 (0.0-0.4); EOSINOPHILS % 6.3 % (0.0-6.0); HEMATOCRIT 36.6 % (38.2-49.6); LYMPHOCYTES # (AUTO) 2.5 (1.0-3.2); MEAN CORPUSCULAR HEMOGLOBIN 29.1 pg (28-32); MEAN CORPUSCULAR HGB CONC 32.8 g/dL (31-35); MEAN CORPUSCULAR VOLUME 88.6 fL (81-99); MONOCYTES # (AUTO) 0.6 (0.2-0.8); MONOCYTES % 8.1 % (4.4-11.3); NEUTROPHILS # (AUTO) 3.8 (2.1-6.9); NEUTROPHILS % 51.7 % (38.7-80.0); PLATELET COUNT 222 x10e3/uL (140-360); RED BLOOD COUNT 4.13 x10e6/uL (4.3-5.7); RED CELL DISTRIBUTION WIDTH 14.3 % (11.7-14.4)
[2019-10-09 16:49] LABS: ALANINE AMINOTRANSFERASE 15 IU/L (0-55); ALBUMIN 3.8 g/dL (3.5-5.0); ALKALINE PHOSPHATASE 80 IU/L (40-150); ANION GAP 16.1 mmol/L (8-16); BLOOD UREA NITROGEN 28 mg/dL (7-26); BUN/CREATININE RATIO 28 (6-25); CALCIUM 9.3 mg/dL (8.4-10.2); CARBON DIOXIDE 25 mmol/L (22-29); CHLORIDE 101 mmol/L (98-107); CREATINE KINASE 42 IU/L (30-200); CREATININE, SERUM 0.99 mg/dL (0.72-1.25); EST GLOMERULAR FILTRATION RATE > 60 ML/MIN (60-); GLUCOSE 151 mg/dL (74-118); MAGNESIUM 1.8 MG/DL (1.3-2.1); POTASSIUM 5.1 mmol/L (3.5-5.1); SODIUM 137 mmol/L (136-145)
[2019-10-09 16:54] LABS: INR 0.88; PARTIAL THROMBOPLASTIN TIME 32.4 seconds (23.8-35.5); PROTHROMBIN TIME 12.5 seconds (11.9-14.5)
[2019-10-09] MEDS ORDERED: ACETAMINOPHEN 325 MG TAB PO ONE (17:00)
[2019-10-09] MEDS ORDERED: CEFTRIAXONE SOD 1 GM/NS 50 ML 50 ML IV ONE (17:15)
--- NOTE | 2019-10-09 17:16 | Emergency Department Note ---
History of Present Illnes History of Present Illness Chief Complaint: General Medicine Complaints History of Present Illness This is a 74 year old male . Historian: Patient Arrival Mode: Car Onset (how long ago): day(s) (several days ) Radiation: abdomen Severity: moderate Onset quality: gradual Duration (how long): day(s) (several days ) Timing of current episode: constant Progression: worsening Context: recent illness, recent surgery, recent immobilization, recent travel, trauma/injury, new medications, hx of DVT/PE, non-compliance w/ medications, other Relieving factors: none Exacerbating factors: none Treatments prior to arrival: none Past Medical/Family History Physician Review I have reviewed the patient's past medical and family history. Any updates have been documented here. Past Medical History Recent Fever: No Clinical Suspicion of Infectio: No New/Unexplained Change in Ment: No Past Medical History: Hypertension, COPD, CVA, TIA, CAD, UTI's, Anxiety, Hyperlipedemia, Chronic Back Pain Other Medical History: CANCER,ALZHEIMERS Past Surgical History: Back Surgery, Cataract Removal Other Surgery: RIGHT LOBECTOMY, RIGHT & LEFT LEG ANGIOGRAM, BIPASS BILATERIAL STENTS. Social History Smoking Cessation: Current every day smoker Counseling Performed: Yes Alcohol Use: None Any Illegal Drug Use: No TB Exposure/Symptoms: No Physically hurt or threatened: No Other Last Tetanus: UTD Any Pre-Existing Lines (PICC,: No Is patient up to date on immun: Yes Last Flu: UTD Last Pneumovax: UTD Review of Systems Review of Systems Constitutional: weakness EENTM: no symptoms Cardiovascular: no symptoms Respiratory: no symptoms Gastrointestinal: abdominal pain Genitourinary: no symptoms Musculoskeletal: no symptoms Neurological: weakness; headache, numbness, paresthesia, pre-existing deficit, seizure, tingling, tremors Psychological: no symptoms Endocrine: no symptoms Hematological/Lymphatic: no symptoms Review of other systems All other systems reviewed and negative. c/o generalized weakness "hurts all over" Physical Exam Related Data Allergies: Coded Allergies: fentanyl (Verified Allergy, Mild, 03/08/19) RASH levofloxacin (Verified Allergy, Unknown, 03/08/19) OTHER Triage Vital Signs Vital Signs Date Time Temp Pulse Resp B/P (MAP) Pulse Ox O2 Delivery O2 Flow Rate FiO2 10/09/19 12:30 97.5 77 16 128/62 94 Vital signs reviewed: Yes Physical Exam CONSTITUTIONAL Constitutional: well-developed, well-nourished HENT HENT: normocephalic, atraumatic, oropharynx clear/moist, nose normal HENT L/R: left ext ear normal, right ext ear normal EYES Eyes: PERRL, conjunctivae normal NECK Neck: ROM normal PULMONARY Pulmonary: effort normal, breath sounds normal CARDIOVASCULAR Cardiovascular: regular rhythm, heart sounds normal, capillary refill normal, normal rate GASTROINTESTINAL Abdominal: soft, nontender, bowel sounds normal, tender (diffuse ttp on exam mild ), other (noted supra pubic cath intact site w/o redness s&s of infection ) GENITOURINARY Genitourinary: exam deferred SKIN Skin: warm, dry MUSCULOSKELETAL Musculoskeletal: ROM normal NEUROLOGICAL Neurological: alert, oriented x 3, no gross motor or sensory deficits PSYCHOLOGICAL Psychological: mood/affect normal, judgement normal Results Laboratory Result Diagram: 10/09/19 1605 10/09/19 1605 Laboratory Laboratory Tests Test 10/09/19 17:11 10/09/19 16:05 White Blood Count 7.43 x10e3/uL (4.8-10.8) Red Blood Count 4.13 x10e6/uL (4.3-5.7) Hemoglobin 12.0 g/dL (14.0-18.0) Hematocrit 36.6 % (38.2-49.6) Mean Corpuscular Volume 88.6 fL (81-99) Mean Corpuscular Hemoglobin 29.1 pg (28-32) Mean Corpuscular Hemoglobin Concent 32.8 g/dL (31-35) Red Cell Distribution Width 14.3 % (11.7-14.4) Platelet Count 222 x10e3/uL (140-360) Neutrophils (%) (Auto) 51.7 % (38.7-80.0) Lymphocytes (%) (Auto) 33.0 % (18.0-39.1) Monocytes (%) (Auto) 8.1 % (4.4-11.3) Eosinophils (%) (Auto) 6.3 % (0.0-6.0) Basophils (%) (Auto) 0.8 % (0.0-1.0) Neutrophils # (Auto) 3.8 (2.1-6.9) Lymphocytes # (Auto) 2.5 (1.0-3.2) Monocytes # (Auto) 0.6 (0.2-0.8) Eosinophils # (Auto) 0.5 (0.0-0.4) Basophils # (Auto) 0.1 (0.0-0.1) Absolute Immature Granulocyte (auto 0.01 x10e3/uL (0-0.1) Prothrombin Time 12.5 seconds (11.9-14.5) Prothromb Time International Ratio 0.88 Activated Partial Thromboplast Time 32.4 seconds (23.8-35.5) Urine Color Yellow (YELLOW) Urine Clarity Sl cloudy (CLEAR) Urine pH 6 (5 - 7) Urine Specific [place] 1.015 (1.010-1.025) Urine Protein Negative (NEGATIVE) Urine Glucose (UA) Negative (NEGATIVE) Urine Ketones Negative (NEGATIVE) Urine Blood Small (NEGATIVE) Urine Nitrite Negative (NEGATIVE) Urine Bilirubin Negative (NEGATIVE) Urine Urobilinogen 0.2 mg/dL (0.2 - 1) Urine Leukocyte Esterase Negative (NEGATIVE) Urine RBC 6-10 /HPF (0-5) Urine WBC None /HPF (0-5) Urine Epithelial Cells Rare /LPF (NONE) Urine Bacteria Rare /HPF (NONE) Urine Yeast Rare (NONE) Sodium Level 137 mmol/L (136-145) Potassium Level 5.1 mmol/L (3.5-5.1) Chloride Level 101 mmol/L (98-107) Carbon Dioxide Level 25 mmol/L (22-29) Anion Gap 16.1 mmol/L (8-16) Blood Urea Nitrogen 28 mg/dL (7-26) Creatinine 0.99 mg/dL (0.72-1.25) Estimat Glomerular Filtration Rate > 60 ML/MIN (60-) BUN/Creatinine Ratio 28 (6-25) Glucose Level 151 mg/dL (74-118) Calcium Level 9.3 mg/dL (8.4-10.2) Magnesium Level 1.8 MG/DL (1.3-2.1) Total Bilirubin 0.3 mg/dL (0.2-1.2) Aspartate Amino Transf (AST/SGOT) 23 IU/L (5-34) Alanine Aminotransferase (ALT/SGPT) 15 IU/L (0-55) Alkaline Phosphatase 80 IU/L (40-150) Creatine Kinase 42 IU/L (30-200) Creatine Kinase MB 2.50 ng/mL (0-5.0) Troponin I 0.007 ng/mL (0-0.300) B-Type Natriuretic Peptide 14.9 pg/mL (0-100) Total Protein 7.7 g/dL (6.5-8.1) Albumin 3.8 g/dL (3.5-5.0) Globulin 3.9 g/dL (2.3-3.5) Albumin/Globulin Ratio 1.0 (0.8-2.0) Laboratory Tests Test 10/09/19 16:05 White Blood Count 7.43 x10e3/uL (4.8-10.8) Red Blood Count 4.13 x10e6/uL (4.3-5.7) Hemoglobin 12.0 g/dL (14.0-18.0) Hematocrit 36.6 % (38.2-49.6) Mean Corpuscular Volume 88.6 fL (81-99) Mean Corpuscular Hemoglobin 29.1 pg (28-32) Mean Corpuscular Hemoglobin Concent 32.8 g/dL (31-35) Red Cell Distribution Width 14.3 % (11.7-14.4) Platelet Count 222 x10e3/uL (140-360) Neutrophils (%) (Auto) 51.7 % (38.7-80.0) Lymphocytes (%) (Auto) 33.0 % (18.0-39.1) Monocytes (%) (Auto) 8.1 % (4.4-11.3) Eosinophils (%) (Auto) 6.3 % (0.0-6.0) Basophils (%) (Auto) 0.8 % (0.0-1.0) Neutrophils # (Auto) 3.8 (2.1-6.9) Lymphocytes # (Auto) 2.5 (1.0-3.2) Monocytes # (Auto) 0.6 (0.2-0.8) Eosinophils # (Auto) 0.5 (0.0-0.4) Basophils # (Auto) 0.1 (0.0-0.1) Absolute Immature Granulocyte (auto 0.01 x10e3/uL (0-0.1) Prothrombin Time 12.5 seconds (11.9-14.5) Prothromb Time International Ratio 0.88 Activated Partial Thromboplast Time 32.4 seconds (23.8-35.5) Sodium Level 137 mmol/L (136-145) Potassium Level 5.1 mmol/L (3.5-5.1) Chloride Level 101 mmol/L (98-107) Carbon Dioxide Level 25 mmol/L (22-29) Anion Gap 16.1 mmol/L (8-16) Blood Urea Nitrogen 28 mg/dL (7-26) Creatinine 0.99 mg/dL (0.72-1.25) Estimat Glomerular Filtration Rate > 60 ML/MIN (60-) BUN/Creatinine Ratio 28 (6-25) Glucose Level 151 mg/dL (74-118) Calcium Level 9.3 mg/dL (8.4-10.2) Magnesium Level 1.8 MG/DL (1.3-2.1) Total Bilirubin 0.3 mg/dL (0.2-1.2) Aspartate Amino Transf (AST/SGOT) 23 IU/L (5-34) Alanine Aminotransferase (ALT/SGPT) 15 IU/L (0-55) Alkaline Phosphatase 80 IU/L (40-150) Creatine Kinase 42 IU/L (30-200) Creatine Kinase MB 2.50 ng/mL (0-5.0) Troponin I 0.007 ng/mL (0-0.300) B-Type Natriuretic Peptide 14.9 pg/mL (0-100) Total Protein 7.7 g/dL (6.5-8.1) Albumin 3.8 g/dL (3.5-5.0) Globulin 3.9 g/dL (2.3-3.5) Albumin/Globulin Ratio 1.0 (0.8-2.0) Laboratory Tests Test 10/09/19 16:05 White Blood Count 7.43 x10e3/uL (4.8-10.8) Red Blood Count 4.13 x10e6/uL (4.3-5.7) Hemoglobin 12.0 g/dL (14.0-18.0) Hematocrit 36.6 % (38.2-49.6) Mean Corpuscular Volume 88.6 fL (81-99) Mean Corpuscular Hemoglobin 29.1 pg (28-32) Mean Corpuscular Hemoglobin Concent 32.8 g/dL (31-35) Red Cell Distribution Width 14.3 % (11.7-14.4) Platelet Count 222 x10e3/uL (140-360) Neutrophils (%) (Auto) 51.7 % (38.7-80.0) Lymphocytes (%) (Auto) 33.0 % (18.0-39.1) Monocytes (%) (Auto) 8.1 % (4.4-11.3) Eosinophils (%) (Auto) 6.3 % (0.0-6.0) Basophils (%) (Auto) 0.8 % (0.0-1.0) Neutrophils # (Auto) 3.8 (2.1-6.9) Lymphocytes # (Auto) 2.5 (1.0-3.2) Monocytes # (Auto) 0.6 (0.2-0.8) Eosinophils # (Auto) 0.5 (0.0-0.4) Basophils # (Auto) 0.1 (0.0-0.1) Absolute Immature Granulocyte (auto 0.01 x10e3/uL (0-0.1) Prothrombin Time 12.5 seconds (11.9-14.5) Prothromb Time International Ratio 0.88 Activated Partial Thromboplast Time 32.4 seconds (23.8-35.5) Sodium Level 137 mmol/L (136-145) Potassium Level 5.1 mmol/L (3.5-5.1) Chloride Level 101 mmol/L (98-107) Carbon Dioxide Level 25 mmol/L (22-29) Anion Gap 16.1 mmol/L (8-16) Blood Urea Nitrogen 28 mg/dL (7-26) Creatinine 0.99 mg/dL (0.72-1.25) Estimat Glomerular Filtration Rate > 60 ML/MIN (60-) BUN/Creatinine Ratio 28 (6-25) Glucose Level 151 mg/dL (74-118) Calcium Level 9.3 mg/dL (8.4-10.2) Magnesium Level 1.8 MG/DL (1.3-2.1) Total Bilirubin 0.3 mg/dL (0.2-1.2) Aspartate Amino Transf (AST/SGOT) 23 IU/L (5-34) Alanine Aminotransferase (ALT/SGPT) 15 IU/L (0-55) Alkaline Phosphatase 80 IU/L (40-150) Creatine Kinase 42 IU/L (30-200) Creatine Kinase MB 2.50 ng/mL (0-5.0) Troponin I 0.007 ng/mL (0-0.300) B-Type Natriuretic Peptide 14.9 pg/mL (0-100) Total Protein 7.7 g/dL (6.5-8.1) Albumin 3.8 g/dL (3.5-5.0) Globulin 3.9 g/dL (2.3-3.5) Albumin/Globulin Ratio 1.0 (0.8-2.0) Lab results reviewed: Yes Imaging Impressions IMPRESSION: Elevation of the right hemidiaphragm and right lower lung zone opacities suggestive of atelectasis. Small effusion and/or underlying airspace process cannot entirely be excluded. No other acute cardiopulmonary process or significant interval change identified from 09/28/2019. Signed by: Dr. Houston Romero MD on 10/09/2019 3:50 PM Dictated By: HOUSTON ROMERO MD 49 Transcribed By: CLARA on 10/09/191549 IMPRESSION: 1. The stomach and proximal duodenum are distended with fluid. There is extensive stool throughout the colon suggesting constipation. 2. Extensive atherosclerotic calcification of the abdominal aorta. There is no aneurysm. There is a focus of deep ulceration or localized dissection in the upper abdominal aorta. Celiac artery and SMA are patent but likely stenotic at their origins. 3. Trace right pleural effusion with pleural thickening and calcification at the right base. This may relate to previous as best this exposure. 4. There is a suprapubic tube which extends into the urinary bladder. 5. Mild anterior compression of the L1 vertebral body with sclerosis. Additional degenerative change with lumbar hardware and sclerotic vertebral bodies also present. Findings at L1 are unchanged from CT chest on 09/24/2019. Staff: Bang Signed by: Dr. Virgilio Olvera M.D. on 10/09/2019 6:49 PM Dictated By: VIRGILIO OLVERA MD 48 Transcribed By: CLARA on 10/09/191848 Procedures 12 Lead ECG Interpretation Subcontract Administrator: Interpreted by ED physician Date: Oct 09, 2019 Time: 17:43 Prior FILM AND VIDEO EDITOR tracings: reviewed Rhythm: sinus rhythm Ectopy: atrial premature contractions Rate: normal BPM: 73 QRS axis: normal Conduction: right bundle branch block T wave depression: aVR, V1, V2, V3 Clinical Impression: abnormal ECG Critical Care Time Subsequent provider I assumed direction of critical care for this patient from another provider of my specialty. Assessment & Plan Reassessment Reassessment 74y m presented to ed c/o generalized weakness "hurts all over" c/o abd pain on exam diffuse ttp mild - lab ct ordered pt medicated w/ massiel Assessment & Plan Final Impression: (1) Abdominal pain (2) Fever Assessment & Plan discussed lab rad results plan of care and need for admit spoke w/ Dr Hendrickson will admit - Dr Silva consulted Depart Disposition: ADMITTED Last Vital Signs Date Time Temp Pulse Resp B/P (MAP) Pulse Ox O2 Delivery O2 Flow Rate FiO2 10/09/19 15:52 100.1 75 18 142/75 97 Home Meds Reported Medications Baclofen (BACLOFEN) 10 Mg Tablet, 10 MG PO Q8H PRN for MUSCLE SPASMS 09/12/19 Glimepiride (GLIMEPIRIDE) 4 Mg Tablet, 4 MG PO DAILY 09/12/19 Gabapentin (GABAPENTIN) 300 Mg Capsule, 300 MG PO TID 09/12/19 Nitroglycerin (NITROGLYCERIN) 0.4 Mg Tab.subl, 0.4 MG SL Q5MIN PRN for CHEST PAIN q5min x 3 max prn for chest pain 09/12/19 Tamsulosin Hcl* (FLOMAX*) 0.4 Mg Cap, 0.4 MG PO DAILY 09/12/19 Trazodone Hcl (TRAZODONE HCL) 100 Mg Tablet, 100 MG PO HS 09/12/19 Atorvastatin Calcium (ATORVASTATIN CALCIUM) 40 Mg Tablet, 40 MG PO HS 09/12/19 Ondansetron Hcl (ONDANSETRON HCL) 4 Mg Tablet, 4 MG PO TID PRN for NAUSEA 09/12/19 Alprazolam (ALPRAZOLAM) 2 Mg Tablet, 2 MG PO TID PRN for ANXIETY 09/12/19 Finasteride (FINASTERIDE) 5 Mg Tablet, 5 MG PO DAILY 09/12/19 Metformin Hcl (METFORMIN HCL) 1,000 Mg Tablet, 1000 MG PO BID 09/12/19 Hydrocodone Bit/Acetaminophen (HYDROCODON-ACETAMINOPHN 10-325) 1 Each Tablet, 1 TAB PO Q4HR PRN for MODERATE PAIN (4-6) 09/12/19 Medications in the ED Acetaminophen 975 mg ONCE ONCE PO ; Start 10/09/19 at 17:00; Stop 10/09/19 at 17:01; Status DC Ceftriaxone Sodium 50 ml @ 100 mls/hr ONCE ONCE IV ; Start 10/09/19 at 17:15; Stop 10/09/19 at 17:44 YOVANA HONG Oct 09, 2019 17:16
[2019-10-09 17:21] LABS: CLARITY,URINE SL CLOUDY (CLEAR); COLOR,URINE YELLOW (YELLOW); KETONES,URINE NEGATIVE (NEGATIVE); LEUKOCYTE ESTERASE ,URINE NEGATIVE (NEGATIVE); NITRITE,URINE NEGATIVE (NEGATIVE); PROTEIN,URINE DIPSTICK NEGATIVE (NEGATIVE); URINE UROBILINOGEN 0.2 mg/dL (0.2 - 1)
[2019-10-09 17:22] LABS: BILIRUBIN,URINE NEGATIVE (NEGATIVE)
[2019-10-09 17:24] LABS: BACTERIA,URINE RARE /HPF; EPITHELIAL CELLS,URINE RARE /LPF
[2019-10-09 17:26] LABS: YEAST,URINE RARE
[2019-10-09] MEDS ORDERED: ONDANSETRON HCL INJ 2MG/ML 2ML 2 MG/ML VIAL IV PRN (17:30)
[2019-10-09] MEDS ORDERED: DEXTROSE 50% SYRINGE 50 ML IV PRN (17:30)
[2019-10-09] MEDS ORDERED: MORPHINE SULFATE 2 MG/ML SYR 1ML IV PRN (17:30)
[2019-10-09] MEDS ORDERED: MEROPENEM 1GRAM 1 GM in SODIUM CHLORIDE 0.9% 100 ML 100 ML IV ONE (17:30)
[2019-10-09] MEDS ORDERED: IOPAMIDOL 370 MG/ML 200 ML INFUS..BTL INJ ONE (18:13)
[2019-10-09] MEDS ORDERED: SODIUM CHLORIDE 0.9% 50ML 50 ML ONE (18:13)
[2019-10-09] MEDS: SODIUM CHLORIDE 0.9% 1000ML 1,000 ML IV SCH (18:41)
--- NOTE | 2019-10-09 18:52 | Diagnostic Imaging Report ---
EXAM: CT Abdomen and Pelvis WITH contrast INDICATION: Abdominal pain ^abd pain ^[id number] ^1750 COMPARISON: None. TECHNIQUE: Abdomen and pelvis were scanned utilizing a multidetector helical scanner from the lung base to the pubic symphysis after administration of IV contrast. Coronal and sagittal reformations were obtained. Routine protocol was performed. Scan was performed when during portal venous phase. Dose modulation, iterative reconstruction, and/or weight based adjustment of the mA/kV was utilized to reduce the radiation dose to as low as reasonably achievable. IV CONTRAST: 100 mL of Isovue-370 ORAL CONTRAST: None RADIATION DOSE: Total DLP: 335.10 mGy*cm Estimated effective dose: (DLP x 0.015 x size factor) mSv COMPLICATIONS: None FINDINGS: LINES and TUBES: There is a suprapubic catheter extending into the urinary bladder. LOWER THORAX: Lung bases are clear. There is mild atelectasis at the right lung base with elevation of the diaphragm. There is pleural thickening with pleural calcifications at the right lung base. HEPATOBILIARY: No focal hepatic lesions. No biliary ductal dilation. GALLBLADDER: No radio-opaque stones or sludge. No wall thickening. SPLEEN: No splenomegaly. PANCREAS: No focal masses or ductal dilatation. ADRENALS: No adrenal nodules KIDNEYS/URETERS: Kidneys enhance symmetrically. No hydronephrosis. There is a 4.2 cm well-defined low-density exophytic mass at the lower pole left kidney. Density measures slightly greater than simple cyst but likely accentuated by artifact from adjacent orthopedic hardware. This likely represents a large simple cyst. An additional low density mass, likely cyst is also present in the posterior upper pole of left kidney. No stones. GI TRACT: No abnormal distention, wall thickening, or evidence of bowel obstruction. There is a large volume of retained stool throughout the colon suggesting constipation. The appendix is not visualized. The stomach is markedly distended with fluid. No other bowel dilatation. PELVIC ORGANS/BLADDER: Urinary bladder is decompressed with the suprapubic tube. No discrete abnormal mass or fluid collection in the pelvis. LYMPH NODES: No dominant abdominal, retroperitoneal or pelvic lymph node mass is seen. VESSELS: There is extensive atherosclerotic calcification and mural thrombus of the aortoiliac vessels with no abdominal aortic aneurysm. In the upper abdominal aorta there is a focus of deep mural ulceration or localized dissection (series 2, image 15). IVC appears unremarkable. The portal system is patent. Celiac, SMA and ANAYA are patent although ostia are likely stenotic with calcified plaque. PERITONEUM / RETROPERITONEUM: No pneumoperitoneum or ascites. BONES: No acute or suspicious bony lesions. There is lumbar spine hardware extending from L4 through S1. Wire sternotomy sutures are present. Degenerative changes are seen elsewhere in the lumbar spine. There is mild anterior compression of the L1 vertebral body with sclerosis. SOFT TISSUES: Superficial surrounding soft tissues unremarkable. IMPRESSION: 1. The stomach and proximal duodenum are distended with fluid. There is extensive stool throughout the colon suggesting constipation. 2. Extensive atherosclerotic calcification of the abdominal aorta. There is no aneurysm. There is a focus of deep ulceration or localized dissection in the upper abdominal aorta. Celiac artery and SMA are patent but likely stenotic at their origins. 3. Trace right pleural effusion with pleural thickening and calcification at the right base. This may relate to previous as best this exposure. 4. There is a suprapubic tube which extends into the urinary bladder. 5. Mild anterior compression of the L1 vertebral body with sclerosis. Additional degenerative change with lumbar hardware and sclerotic vertebral bodies also present. Findings at L1 are unchanged from CT chest on 09/24/2019. Staff: Bang Signed by: Dr. Dejan Cuenca M.D. on 10/09/2019 6:49 PM
--- OUTSIDE RECORDS SUMMARY | 2019-10-09 19:09 | XMS REPORT | Clinical Summary ---
Author Author [facility]yo [facility] Organization [place] [facility] Address Unknown Phone Unavailable Care Team Providers Care News Photographer Name Role Phone System, Provider Not In [...] mg capsule,extended by mouth release 24hr daily. 10/17/2018 hydrALAZINE (APRESOLINE) Take 1 tablet 60 tablet 0 50 MG tablet (50 mg total) 9 by mouth 2 (two) times a day for 30 days. 10/17/2018 ipratropium-albuterol Take 3 mL by 270 mL 0 05/ 18/201 (DUO-NEB) 0.5-2.5 mg/3 mL nebulization 9 nebulizer [...] Dx); Abdominal pain, unspecified abdominal location 07/10/2019 [facility] Internal Tx dicine - Encounter 07/11/2019 after 10/08/2018 Immunizations Name Administration Dates Next Due Pneumococcal [...] STAT 07/10/2019 W/AUTO DIFF 1:05 AM CDT after 10/08/2018 Results * Estimated GFR (07/11/2019 8:47 AM CDT) Only the most recent of 2 results within the time period is included. Estimated GFR 88 mL/min/1.73 m2 RAMSAY Comment: HINDUISM Catergory Units [facility]OSPITAL G1 >=90 Normal or high G2 60-89 [...] 2014. Specimen Plasma specimen Performing Organization Address City/State/Zipcode Ph one Number [facility] [address] [place] [address] PATHOLOGY AND GENOMIC MEDICINE RAMSAY HINDUISM [place] [address] [place] [address] HOSPITAL * Magnesium level (07/11/2019 8:47 AM CDT) Pathologist [facility] Magnesium 1.60 1.60 - 2.40 mg/dL [facility] Specimen Plasma specimen Performing Organization Address City/State/[facility] Ph one Number [facility] [address] [place] [address] PATHOLOGY AND GENOMIC MEDICINE [facility] [address] * Basic metabolic panel (07/11/2019 8:47 AM CDT) [facility] Sodium 141 135 - 150 mEq/L [facility] Potassium 3.8 3.5 - 5.0 mEq/L [facility] Chloride 105 98 - 112 mEq/L [facility] CO2 24 24 - 31 mmol/L [facility] Anion gap 12@ANIO 7 - 15 mEq/L [facility] BUN 12 7 - 18 mg/dL [facility] Creatinine 0.80 0.70 - 1.20 mg/dL [facility] Glucose 108 (H) 65 - 100 mg/dL [facility] Calcium 9.2 8.8 - 10.2 mg/dL [facility] Specimen Plasma specimen Performing Organization Address City/[facility] Ph one Number [facility] [place] [address] PATHOLOGY AND GENOMIC MEDICINE [place] [address] [place] [address] HOSPITAL * POC glucose (07/11/2019 6:33 AM CDT) Only the most recent of 6 results within the time period is included. Pathologist [facility] POC glucose 95 65 - 100 mg/dL RAMSAY Comment: HINDUISM Transportation Specialist Name: [facility] Device ID: [id number] Specimen Performing Organization Address City/State/Zipcode Ph one Number [facility] [address] [place] [address] PATHOLOGY AND GENOMIC MEDICINE [place] [id number] [place] [address] HOSPITAL * ECG 12 lead (07/10/2019 1:06 PM CDT) Ventricular 88 [facility] rate Atrial rate 88 [facility] AR interval 174 [facility] QRSD interval 140 [facility] QT interval 408 [facility] QTC interval 493 [facility] P axis 1 61 [facility] QRS axis 1 111 [facility] T wave axis 77 [facility] EKG impression Sinus rhythm with occasional [facility] premature ventricular complexes-Right bundle branch block-Left posterior fascicular block-^^^ Bifascicular block ^^^-Abnormal ECG-In automated comparison with ECG of 10-SEP-2018 22:27,-premature ventricular complexes are now present-T wave inversion now evident in Anterior leads- Specimen Narrative Performed At This result has an attachment that is n ot available. Performing Organization Address City/[facility] Ph one Number [facility] MUSE [address] [place] [address] * Lactic acid level, SEPSIS - Now and repeat 2x every 3 hours (07/10/2019 6:49 AM CDT) Only the most recent of 3 results within the time period is included. Lactic acid 0.8 0.5 - 2.2 mmol/L [facility] Specimen Blood Performing Organization Address City/State/Zipcode Ph one Number [facility] [address] [facility] [address] [place] [id number] PATHOLOGY AND GENOMIC MEDICINE [facility] [address] [facility] [address] * Troponin (07/10/2019 6:49 AM CDT) Only the most recent of 3 results within the time period is included. Troponin 0.006 0.000 - 0.040 ng/mL RAMSAY Comment: HINDUISM In patients suspected of [place] having a myocardial HOSPITAL infarction, along with [...] Organization Address City/State/Zipcode Ph one Number [facility] [address] [place] [address] PATHOLOGY AND GENOMIC MEDICINE [facility] [address] * Urine culture (07/10/2019 3:12 AM CDT) Urine culture Duplicate organism-no further RAMSAY isolate workup HINDUISM >10-5 cfu/ml [facility] (A) Comment: Specimen Information Specimen Source: Urine Specimen Site: Clean catch Urine culture Escherichia coli AYO isolate >10-5 cfu/ml HINDUISM The performance HOSPITAL characteristics of this assay on this isolate were validated by the Microbiology Laboratory at [facility]. This source has not been approved by the U.S. Food and Drug Administration. The results are not intended to be used as the sole means for clinical diagnosis or patient management. The Microbiology Laboratory is authorized under the clinical Laboratory Improvement Amendments of 1988 (CLIA-88) to perform high complexity testing. This isolate is a multimedia producer of ESBL (extended spectrum beta lactamase). This [...] Performing Organization Address City/State/Zipcode Ph one Number [facility] DEPARTMENT OF [address] [place] [address] PATHOLOGY AND GENOMIC MEDICINE [address] * Urinalysis screen and microscopy, with reflex to culture (07/10/2019 2:09 AM CDT) Specimen site Clean catch [facility] Color, UA Yellow [facility] Appearance, UA Cloudy [facility] Specific 1.010 1.001 - 1.035 RAMSAY gravity, UA [facility] pH, UA 5.0 5.0 - 8.5 [facility] Protein, UA Negative Negative [facility] Glucose, UA Negative Negative [facility] Ketones, UA Negative Negative [facility] Bilirubin, UA Negative Negative [facility] Blood, UA Small (A) Negative [facility] Nitrite, UA Negative Negative [facility] Urobilinogen, Negative <2.0 [facility] Leukocyte Large (A) Negative RAM[facility]Y esterase, UA [facility] WBC, UA 91 (H) 0 - 1 /HPF [facility] RBC, UA 5 (A) 0 - 5 /HPF [facility] Bacteria, UA Trace None seen [facility] Yeast, UA None seen [facility] Yeast with None seen [facility] Specimen Urine Performing Organization Address City/State/Zipndde Ph one Number [facility] [address] [facility] [place] [address] PATHOLOGY AND GENOMIC MEDICINE [address] * CT Abdomen Pelvis Wo Contrast (07/10/2019 [...] tenderness is advised to exclude recent injury. [id number] Procedure Note Interface, Radiology Results Incoming - 07/10/2019 1:49 [...] tenderness is advised to exclude recent injury. [id number] Performing Organization Address City/State/[facility] Ph one Number [facility] [address] [place] [address] * CBC with platelet and differential (07/10/2019 1:05 AM CDT) WBC 8.4 4.2 - 11.0 k/uL [facility] RBC 3.88 (L) 4.04 - 5.86 m/uL [facility] HGB 11.4 (L) 13.0 - 17.3 g/dL [facility] HCT 34.8 34.0 - 45.0 % [facility] MCV 89.7 80.0 - 98.[address] [facility] MCH 29.4 27.0 - 34.[address] [facility] MCHC 32.8 31.5 - 36.5 g/dL [facility] RDW - SD 45.9 37.0 - 51.[address] [facility] MPV 9.4 7.4 - 10.[address] [facility] Platelet count 252 150 - 400 k/uL [facility] Nucleated RBC 0.00 /[address] [facility] Neutrophils 70.2 (H) 36.0 - 66.0 % [facility] Lymphocytes 17.9 (L) 24.0 - 44.0 % [facility] Monocytes 7.8 (H) 0.0 - 6.0 % [facility] Eosinophils 3.5 0.0 - 6.0 % [facility] Basophils 0.5 0.0 - 1.2 % [facility] Immature 0.1 0.0 - 1.0 % RAMSAY granulocytes [facility] Specimen Blood Performing Organization Address City/[facility] Centercode Ph one Number [facility] [address] [place] [address] PATHOLOGY AND GENOMIC MEDICINE [address] * B natriuretic peptide (07/10/2019 1:05 AM CDT) Pathologist [facility] BNP 78 0 - 100 pg/mL [facility] Specimen Blood Performing Organization Address City/State/[facility] Centercode Ph one Number [facility] [address] [place] [address] PATHOLOGY AND GENOMIC MEDICINE [address] * Lipase level (07/10/2019 1:05 AM CDT) Pathologist [facility] Lipase 16 13 - 60 U/L [facility] Specimen Plasma specimen Performing Organization Address City/[facility] Ph one Number [facility] [address] [place] [address] PATHOLOGY AND GENOMIC MEDICINE [address] * Comprehensive metabolic panel (07/10/2019 1:05 AM CDT) [facility] Sodium 133 (L) 135 - 150 mEq/L [facility] Potassium 4.1 3.5 - 5.0 mEq/L [facility] Chloride 97 (L) 98 - 112 mEq/L [facility] CO2 24 24 - 31 mmol/L [facility] Anion gap 12@ANIO 7 - 15 mEq/L [facility] BUN 14 7 - 18 mg/dL [facility] Creatinine 0.90 0.70 - 1.20 mg/dL [facility] Glucose 138 (H) 65 - 100 mg/dL [facility] Calcium 8.9 8.8 - 10.2 mg/dL [facility] Protein 7.2 6.3 - 8.3 g/dL [facility] Albumin 3.4 (L) 3.5 - 5.0 g/dL [facility] A/G ratio 0.9 0.7 - 3.8 [facility] Alkaline 76 0 - 129 U/L [facility] phosphatase [facility] AST 14 10 - 50 U/L [facility] ALT 8 5 - 50 U/L [facility] Total bilirubin <0.3 0.2 - 1.2 mg/dL [facility] Specimen Plasma specimen Performing Organization Address City/State/Zipcode Ph one Number [facility] [address] [place] [address] PATHOLOGY AND GENOMIC MEDICINE [facility] [address] [place] [address] HOSPITAL after 10/08/2018 Additional Health Concerns Resolved Time Infection Noted Time ESBL (C ) 07/18/2019 8:20 AM CDT Insurance Type Payer Benefit Subscriber ID Effective Phone Address Plan / Dates Group HMO [employer] TEX[employer] xxxxxxxxx 2018-Joselin WOODS Advance Directives For more information, please contact: [phone] Patient Associate Theatre Professor Explanation Type Date Recorded Advance Directives, 09/06/2017 10:04 PM Living Will and Medical Power of Learning And Development Assistant Advance Directives, 09/10/2018 10:52 PM Living Will and Medical Power of Learning And Development Assistant Advance Directives, 07/10/2019 1:17 AM Living Will and Medical Power of Learning And Development Assistant Date Inactivated Comments Code Status Date Activated 09/17/2018 8:43 PM Full Code 09/11/2018 12:10 AM Code Status decision reached by: Patient
--- OUTSIDE RECORDS SUMMARY | 2019-10-09 19:09 | XMS REPORT | Clinical Summary ---
Author Author [facility] Organization [facility] Address Unknown Phone Unavailable Care Team Providers Care Artist Agent Name Role Phone PCP Unavailable Allergies Comments [...] mouth daily. involving coronary bypass graft of [place] heart, angina presence unspecified Active atorvastatin (LIPITOR) 40 Take 1 tablet 60 tablet 2 11/23/201 mg tabletIndications: by mouth at 8 Coronary artery disease bedtime involving coronary bypass nightly. graft of [place] heart, angina presence unspecified Active nicotine (NICODERM [...] LMSW 01/31/2019 Clinical Case Mgt Varinder Slater, [facility] [place] [facility] [place] 01/30/2019 Clinical Case Herbert [...] artery disease involving coronary bypass graft of [place] heart, angina presence unspecified 01/21/2019 Hospital - Encounter 01/26/2019 after 10/08/2018 Family History Medical History Relation Name Comments [...] POC Routine 01/21/2019 12:52 PM CDT after 10/08/2018 Results * POCT GLUCOSE POC docked device (02/10/2019 7:46 AM CDT) Only the most recent of 26 results within the time period is included. Glucose POC 76 74 - 106 mg/dL [facility] Specimen Blood Performing Organization Address City/State/Zipcode Ph one Number [facility] [address] [place] [address] * CBC/Diff (02/10/2019 3:37 AM CDT) Only [...] Address City/State/Zipcode Ph one Number [facility] [address] [place] [phone] * Comprehensive Metabolic Panel (02/10/2019 3:37 AM [...] Phosphatase ALT 14 7 - 52 U/L [facility] AST 20 13 - 39 U/L [facility] Bilirubin, 0.2 0.2 - 1.2 mg/dL [facility] Total Total Protein 5.8 (L) 6.0 - 8.3 g/dL [facility] GFR, Estimated >90 >=90 mL/min/1.73 m2 [facility] Albumin 3.1 (L) 4.2 - 5.5 g/dL [facility] Anion Gap 10 5 - 16 mmol/L [facility] Specimen Blood Performing Organization Address [facility] one Number [facility] [address] [place] [phone] * Phosphorus (02/10/2019 3:37 AM CDT) Only the most recent of 5 results within the time period is included. [facility] Phosphorus 3.8 2.5 - 5.0 mg/dL [facility] Specimen Blood Performing Organization Address [facility] one Number [facility] [address] [place] [address] * Magnesium (02/10/2019 3:37 AM CDT) Only the most recent of 6 results within the time period is included. [facility] Magnesium 1.6 (L) 1.9 - 2.7 mg/dL [facility] Specimen Blood Performing Organization Address [facility] one Number [facility] [address] [place] [address] * Calcium, Ionized (02/10/2019 3:37 AM CDT) Only the most recent of 4 results within the time period is included. Pathologist [facility] Calcium, 1.18 1.15 - 1.29 mmol/L [facility] Ionized Specimen Blood Performing Organization Address [facility] one Number [facility] [address] [place] [address] * Liver Profile (02/09/2019 8:55 AM CDT) [facility] Total Protein 5.6 (L) 6.0 - 8.3 g/dL [facility] Bilirubin, 0.3 0.2 - 1.2 mg/dL [facility] Total Alkaline 61 34 - 104 U/L [facility] Phosphatase AST 26 13 - 39 U/L [facility] Direct 0.1 0.0 - 0.2 mg/dL [facility] Bilirubin ALT 17 7 - 52 U/L [facility] Albumin 3.0 (L) 4.2 - 5.5 g/dL [facility] Specimen Blood Performing Organization Address [facility] one Number [facility] [address] [place] [address] * Basic Metabolic Panel (02/09/2019 8:55 AM CDT) Only the most recent of 7 results within the time period is included. Pathologist [facility] Sodium 139 136 - 145 mmol/L [...] [facility] Specimen Blood Performing Organization Address [facility] Ph one Number [facility] [address] [place] [address] * Urinalysis (02/09/2019 5:34 AM CDT) Only the most recent of 2 results within the time period is included. Color Yellow Colorless, Straw, [facility] Yellow Clarity Cloudy (A) Clear [facility] Spec Tranquillity, >1.035 (H) 1.001 - 1.035 [facility] [...] LABORATORY Ur Specimen Urine Performing Organization Address City/State/[facility] one Number [facility] [address] [place] [address] * Urine Culture (02/09/2019 5:34 AM CDT) [...] beta-lactamase producing Escherichia coli Performing Organization Address City/State/[facility] Ph one Number [facility] [address] [place] [address] * Differential, Manual (02/09/2019 3:29 AM CDT) [...] 0.08 K/uL [facility] Cells Counted [facility] Specimen Blood Performing Organization Address [facility] Ph one Number [facility] [address] [place] [address] * POCT VBG POC docked device (02/09/2019 2:42 AM CDT) Only the most recent of 6 results within the time period is included. pH, Noé POC 7.43 7.33 - 7.43 [facility] HCO3, Noé POC 23 22 - 26 mmol/L [facility] TCO2 POC 24 21 - 32 mmol/L [facility] PO2, Venous POC 54 50 - 75 mm Hg [facility] (BKR) pCO2,Noé POC 35.4 (L) 38 - 50 mmHg [facility] Base Deficit, -1 [facility] Noé POC Sánhcez's Test YADY [facility] Sample Type IVEN [facility] Site RRADIA [facility] Lactic Acid POC 0.39 (L) 0.40 - 2.00 mmol/L [facility] % Sat, Noé POC 89 % [facility] Specimen Blood, venous Performing Organization Address [facility] Ph one Number [facility] [address] [place] [address] * CT ABDOMEN AND PELVIS CONTRAST (02/09/2019 [...] cystic lesions in the left kidney. This [facility] radiology report is a prelimi nary [...] lesions in the left ki dney. This [facility] radiology report is a preliminary [...] MD, 02/08/2019 9:53 PM Performing Organization Address [facility] one Number SMS * PT/INR/PTT (02/08/2019 8:41 PM CDT) [facility] PT 12.5 11.8 - 15.0 Seconds [facility] INR 1.0 Refer to INR ranges [facility] Comment: 2.0 - 3.0 for moderate intensity anticoagulation 2.5 - 3.5 for high intensity anticoagulation PTT 42.9 (H) 23.6 - 36.4 Seconds [facility] PATRIZIA GAXIOLA Comment: The recommended therapuetic range is an APTT 61-103 seconds which corresponds to 0.3-0.7 anti Xa u/ml. Specimen Blood Performing Organization Address [facility] one Number [facility] [address] [place] [address] * Blood Culture (02/08/2019 8:41 PM CDT) Only the most recent of 4 results within the time period is included. [facility] Blood Culture No growth 5 days [facility] Specimen Blood - Peripheral Blood Performing Organization Address [facility] one Number [facility] [address] [place] [address] * POCT TROPONIN I POC docked device (02/08/2019 7:45 PM CDT) Only the most recent of 2 results within the time period is included. Troponin POC 0.01 0.00 - 0.08 ng/mL [facility] RY Specimen Blood, venous Performing Organization Address [facility] Ph one Number [facility] [address] [place] [address] * POCT BMP POC docked device (02/08/2019 7:44 PM CDT) Only the most recent of 3 results within the time period is included. [facility] Sodium POC 137 136 - 145 mmol/L [facility] Potassium POC 4.5 3.5 - 5.1 mmol/L [facility] Y Chloride POC 100 98 - 107 mmol/L [facility] TCO2 POC 31 21 - 32 mmol/L [facility] Urea Nitrogen 29 (H) 7 - 18 mg/dL [facility] POC Creatinine POC 1.1 0.6 - 1.3 mg/dL [facility] Glucose POC 95 74 - 106 mg/dL [facility] Ionized Calcium 1.18 1.15 - 1.29 mmol/L [facility] POC GFR, Estimated 66 (L) >=90 mL/min/1.73 m2 [facility] Hemoglobin POC 12.2 12 - 16 g/dL [facility] Hematocrit POC 36.0 (L) 37.0 - 47.0 % [facility] Specimen Blood, venous Performing Organization Address [facility] one Number [facility] [address] [place] [address] * PT/INR (01/22/2019 4:12 AM CDT) [facility] PT 15.0 11.8 - 15.0 Seconds [facility] 1.2 Refer to INR ranges [facility] Comment: 2.0 - 3.0 for moderate intensity anticoagulation 2.5 - 3.5 for high intensity anticoagulation Specimen Blood Performing Organization Address [facility] one Number [facility] [address] [place] [address] * Hemoglobin A1C (01/22/2019 4:11 AM CDT) [facility] Hemoglobin A1c 7.2 (H) 4.3 - 6.1 % [facility] Estimated 160 (H) 70 - 110 mg/dL [facility] Average Glucose Specimen Blood Performing Organization Address City/State/Zipcode Ph one Number [facility] [address] [place] [address] * XRAY CHEST 2 VIEWS (01/21/2019 6:03 PM CDT) Specimen Impressions Performed At IMPRESSION: SMS 1. Persistent right lower lung reticu lar opacities, which may represent scarring or subsegmental atelectasis, w ith possible superimposed consolidation, possibly due to infectio n or aspiration pneumonitis. 2. Postsurgical changes in the right lung are unchanged compared to prior. This [facility] radiology report is a prelimi nary [...] ng are unchanged compared to prior. This [facility] radiology report is a preliminary [...] At EXAM: XR LEFT ANKLE 3 VIEWS [facility] EXAM: XR LEFT FOOT 3 VIEWS [...] Atherosclerotic vascular calcifications are present. Procedure Note aRcquel, Rad/Mammog In - 01/21/2019 5:29 PM CDT [...] MD, 01/21/2019 5:24 PM Performing Organization Address [facility] one Number [facility] * Purple Top (01/21/2019 1:14 PM CDT) Hold Specimen [id number] [facility] Specimen Blood Performing Organization Address [facility] one Number [facility] [address] [place] [address] * Gold Top Tube (01/21/2019 1:14 PM CDT) Only the most recent of 2 results within the time period is included. Hold Specimen [id number] [facility] Specimen Blood Performing Organization Address [facility] one Number [facility] [address] [place] [address] * 12 LEAD EKG (01/21/2019 12:52 PM CDT) [facility] Date: 2019-01-21 Pat Name: MARLEN MEYERS [place]: [place] [facility] Gender: M Mechanical Adjuster: [id number] : 1945 Requested By: HERBERT Hager Order Number: [id number] Edward BIGGS: Yvan Coley Measurements Intervals [place] Rate: 130 P: NC: 0 QRS: 105 QRSD: 110 T: 67 QT: 327 QTc: 482 Interpretive Statements ATRIAL FIBRILLATION WITH RAPID VENTRICULAR RESPONSE MARKED RIGHT AXIS DEVIATION [QRS AXIS > 100] RIGHT BUNDLE BRANCH BLOCK [120+ ms QRS DURATION, UPRIGHT V1, 40+ ms S IN I/aVL/V4/V5/V6] Electronically Signed On 01-23-2019 16:13:27 CDT by Yvan Coley Specimen Performing Organization Address City/State/Zipcode Ph one Number SMS after 10/08/2018 Additional Health Concerns Last Indicated Resolved Time Infection Onset Date 02/09/2019 Escherichia coli (E. 02/05/2019 Coli) MDR Advance Directives Date Inactivated Comments Code Status Date Activated 02/10/2019 1:53 PM Full Code 02/09/2019 2:35 AM 01/26/2019 3:20 PM Full Code 01/21/2019 5:16 PM 11/23/2017 1:35 PM Full Code 11/20/2017 8:20 AM
--- OUTSIDE RECORDS SUMMARY | 2019-10-09 19:09 | XMS REPORT | Clinical Summary ---
Author Author [facility] Organization [facility] Address Unknown Phone Unavailable Care Team Providers Care Highway Maintainer Name Role Phone Darnell Vivar MD PCP [...] General Internal Me dicine 03/03/2019 Travel after 10/08/2018 Family History Medical History Relation [...] Taken Vital Sign Reading 03/05/2019 7:34 AM [employer] PLANT OPERATOR HELPER Blood Pressure 150/78 03/05/2019 10:00 AM [employer] OPERATOR HELPER Pulse 86 03/05/2019 7:34 AM [employer]ANT OPERATOR HELPER Temperature 36.8 C (98.2 F) 03/05/2019 10:00 AM [employer]ANT OPERATOR HELPER Respiratory Rate 18 03/05/2019 10:00 AM [employer] PLANT OPERATOR HELPER Oxygen Saturation 95% - Inhaled Oxygen - Concentration - Weight - - Height - - Body Mass Index - Plan of Treatment Health Maintenance Due Date Last Done Comments COLON CANCER SCREENING 1945 COLONOSCOPY DIABETIC EYE EXAM 1955 DIABETIC FOOT EXAM 1955 HEMOGLOBIN A1C 12/09/2018 06/11/2018, 018, 10/13/2015, Additional history exists MEDICARE ANNUAL WELLNESS 05/04/2019 (YEAR 2 or FIRST YEAR if no IPPE) PNEUMOCOCCAL 65+ Completed 09/17/2018, 016, 06/06/2014, LOW/MEDIUM RISK Additional history exists INFLUENZA VACCINE Completed 12/29/2018, 018, 02/04/2017, Additional history exists Implants Device Identifier Shelf Expiration Date Model / Serial / L ot Implanted Type Area Manufactur er 10/06/2013 [id number] / / [id number] System,Anastomosis Proximal Cardiovasc N/A: Aorta CA RDICA [place] - [id number] [employer] Implanted: Qty: 2 on 10/06/2012 by Eric Barillas MD Procedures Comments Procedure Name Priority Date/Time Associated Diag nosis RHYTHM STRIP - SCAN 03/08/2019 8:52 AM ABSOR[employer] PLANT OPERATOR HELPER REPORT OF PROCEDURE - 03/08/2019 ENDOSCOPY SCAN 8:52 AM ABSOR[employer]ION PLANT OPERATOR HELPER POCT-GLUCOSE METER Routine 03/05/2019 7:30 AM [employer] PLANT OPERATOR HELPER CBC W/PLT COUNT & AUTO Routine 03/05/2019 DIFFERENTIAL 5:46 AM [employer]ION PLANT OPERATOR HELPER CBC W/PLT COUNT & AUTO Routine 03/05/2019 DIFFERENTIAL 5:46 AM [employer]OR[employer] PLANT OPERATOR HELPER BASIC METABOLIC PANEL (7) Routine 03/05/2019 5:46 AM [employer]OR[employer] PLANT OPERATOR HELPER POCT-GLUCOSE METER Routine 03/04/2019 9:10 PM CDT [...] ms QTC Calculatio n(Bazett) 477 ms P [place] 15 degrees R [place] 70 degrees T [place] 42 degrees Normal sinus rhythm Right bundle [...] (7) STAT 03/03/2019 12:12 PM CDT after 10/08/2018 Results * RHYTHM STRIP - SCAN (03/08/2019 8:52 AM ABSORPTION PLANT OPERATOR HELPER) Narrative Performed At This result has an attachment that is n ot available. * EKG-SCANNED (03/08/2019 8:52 AM ABSORPTION PLANT OPERATOR HELPER) Narrative Performed At This result has an attachment that is n ot available. * POC-Glucose meter (03/05/2019 7:30 AM ABSORPTION PLANT OPERATOR HELPER) Only the most recent of 7 results within the time period is included. POC-Glucose Meter 140 (H)Comment: : TESTED AT 70 - 110 mg/dL [facility] [address] [facility] [address]: Kosher Sealer/Wick And Base Assembler ID = [id number] for Sharath Edilson Specimen Blood Performing Organization Address City/State/Zipcode Ph one Number [facility] [address] [place], [place] [address] [facility] * CBC with platelet count + automated diff (03/05/2019 5:46 AM ABSORPTION PLANT OPERATOR HELPER) Only the most recent of 3 results within the time period is included. WBC 6.5 3.5 - 10.5 K/L [facility] RBC 3.61 (L) 4.63 - 6.08 M/L [facility] Hemoglobin 10.4 (L) 13.7 - 17.5 GM/DL [facility] Hematocrit 32.2 (L) 40.1 - 51.0 % [facility] MCV 89.2 79.0 - 92.2 fL [facility] MCH 28.8 25.7 - 32.2 pg [facility] MCHC 32.3 32.3 - 36.5 GM/DL [facility] RDW 15.1 (H) 11.6 - 14.4 % [facility] Platelets 229 150 - 450 K/CU MM [facility] MPV 10.0 9.4 - 12.4 fL [facility] nRBC 0 0 - 0 /100 WBC [facility] % Neutros 50 % [facility] % Lymphs 36 % [facility] % Monos 8 % [facility] % Eos 5 % [facility] % Baso 1 % [facility] # Neutros 3.29 1.78 - 5.38 K/L [facility] # Lymphs 2.34 1.32 - 3.57 K/L [facility] # Monos 0.49 0.30 - 0.82 K/L [facility] # Eos 0.34 0.04 - 0.54 K/L [facility] # Baso 0.04 0.01 - 0.08 K/L [facility] Immature 1 0 - 1 % [facility] Granulocytes-Relative [facility] Specimen Blood Performing Organization Address City/[facility] [[email or web address] Ph one Number [address] [facility] * Basic Metabolic Panel (03/05/2019 5:46 AM ABSORPTION PLANT OPERATOR HELPER) Only the most recent of 3 results within the time period is included. Sodium 135 (L) 136 - 145 meq/L [facility] Potassium 4.6 3.5 - 5.1 meq/L [facility] Chloride 101 98 - 107 meq/L [facility] CO2 27 22 - 29 meq/L [facility] BUN 11 7 - 21 mg/dL [facility] Creatinine 0.71 0.57 - 1.25 mg/dL [facility] Glucose 120 (H) 70 - 105 mg/dL [facility] Calcium 9.0 8.4 - 10.2 mg/dL [facility] EGFR 109Comment: ESTIMATED GFR IS mL/min/1.73 sq m [facility] NOT ACCURATE CREATININE [facility] CLEARANCE IN PREDICTING GLOMERULAR FILTRATION RATE. ESTIMATED GFR IS NOT APPLICABLE FOR DIALYSIS PATIENTS. Specimen Blood Performing Organization Address City/[facility] [[email or web address] Ph one Number [address] 0 [phone] [address] * Hepatic function panel (03/04/2019 2:35 AM CDT) Protein, Total 7.0 6.0 - 8.3 gm/dL [facility] Albumin 3.7 3.5 - 5.0 g/dL [facility] Total Bilirubin 0.2 0.2 - 1.2 mg/dL [facility] Bilirubin, Direct 0.1 0.1 - 0.5 mg/dL [facility] Alkaline Phosphatase 79 40 - 150 U/L [facility] AST 11 5 - 34 U/L [facility] ALT 6 6 - 55 U/L [facility] Specimen Blood Performing Organization Address City/State/Zipcosc Ph one Number [phone] [place] [address] * Urinalysis w/Microscopic + Reflex to Culture (03/03/2019 1:55 PM CDT) Color, UA Light Yellow [facility] Clarity, UA Hazy [facility] Specific Alpha, UA 1.010 1.001 - 1.035 [facility] pH, UA 5.5 5.0 - 8.0 [facility] Protein, UA Negative Negative [facility] Glucose, UA Negative Negative [facility] Ketones, UA Negative Negative [facility] Bilirubin, UA Negative Negative [facility] Blood, UA Negative Negative [facility] Nitrite, UA Positive (A) Negative [facility] Leukocytes, UA Large (A) Negative [facility] Urobilinogen, UA 0.2 0.2 - 1.0 mg/dL [facility] RBC, UA 4 /HPF [facility] WBC, UA 65 /HPF [facility] Specimen Source [facility] Specimen Urine Performing Organization Address [facility] Ph one Number [place] [address] [facility] * Rapid drug screen, urine (03/03/2019 1:55 PM CDT) Barbiturate Screen Negative Negative [facility] Benzodiazepine Screen Positive (A) Negative [facility] Cocaine (Metab.) Screen Negative Negative [facility] Methadone Screen Negative Negative [facility] Opiate Screen Positive (A) Negative [facility] Cannabinoid Screen Negative Negative [facility] Amph/Methamph Screen Negative Negative [facility] Phencyclidine Screen Negative Negative [facility] Specimen Urine Narrative Performed At [facility] Cocaine 300 ng/mL [facility] Lgvsdemwzbf17 n g/mL Jkhblbwzfxprmr516 ng/mL Barbiturate 200 ng/ mL Kohyirbqiqwuo64 ng/ mL Opiate3 00 ng/mL Methadone 300 n g/mL Amphetamine/ 1000 ng/mL Methamphetamine This assay provides an unconfirmed qual itative test result for the clinical management of patients in emergency sit uations. Chain of custody not maintained. Some rxzg-zzp-kbkgbrj medications, as w ell as adulterants, may cause inaccurate results. Clinical correlation should be applied. A more comprehensive drug screen or confirmation of a detected dr arroyo may be performed upon request. Performing Organization Address City/[facility] Ph one Number [address] [facility] * Urine culture (03/03/2019 1:55 PM CDT) Result 90-99,000 col/mL Escherichia [facility] coli (A)Comment: ESBL Positive [facility] Specimen Urine Antibiotic Method Susceptibility [...] <=20: Susceptible Escherichia coli Performing Organization Address [facility] one Number [place] [address] [facility] * Blood Culture - Routine (Left Venipuncture) (03/03/2019 1:07 PM CDT) Only the most recent of 2 results within the time period is included. Result No growth in 5 days [facility] Specimen Blood Performing Organization Address City/[facility] Ph one Number [place] [address] [facility] * CT brain without IV contrast (03/03/2019 12:50 PM CDT) Specimen Narrative Performed At FINAL REPORT [employer] [facility] CT, BRAIN, WITHOUT CONTRAST INDICATION: headache WEAKNESS [...] Signed: Percy Bryan MD Report Verified Date/Time: 12:54:53 Procedure Note Interface, External Ris In [...] Verified Date/Time: 03/03/2019 12:54:53 Performing Organization Address City/State/[facility] one Number GE RIS * XR chest [...] Signed: Garo Medina MD Report Verified Date/Time: 12:37:45 [facility] Procedure Note Interface, External [...] Report Verified Date/Time: 03/03/2019 12:37:45 Reading Location: [facility] Radiology Reading Room Performing Organization Address [facility] one Number GE RIS * ECG 12 lead (03/03/2019 12:24 PM CDT) Specimen Narrative Performed At Ventricular Rate 93 BPM GE MUSE Atrial Rate 93 BPM P-R Interval 166 ms QRS Duration 134 ms Q-T Interval 384 ms QTC Calculation(Bazett) 477 ms P [place] 15 degrees R [place] 70 degrees T [place] 42 degrees Normal sinus rhythm Right bundle [...] 384 ms QTC Calculation(Bazett) 477 ms P [place] 15 degrees R [place] 70 degrees T [place] 42 degrees Normal sinus rhythm Right bundle branch block Nonspecific ST abnormality Prolonged QT Abnormal ECG When compared with ECG of 10-JUN-2018 12:59, T wave inversion now evident in Anterior leads Confirmed by Andrea SRINIVASAN, SCOTTY ([id number]) on 03/04/2019 7:53:41 AM Performing Organization Address [facility] one Number GE MUSE * POC-Lactic Acid, Venous (03/03/2019 12:19 PM CDT) POC-Lactic Acid, Venous 1.7Comment: TESTED AT [facility] 0.9 - 1.7 mmol/L [address] [address] [facility] Specimen Blood Performing Organization Address [facility] one Number [address] [facility] * Troponin I (03/03/2019 12:12 PM CDT) Troponin I <0.01 0.00 - 0.03 ng/mL [facility] Specimen Blood Narrative Performed At Troponin I (TnI) levels must be interpreted in the co ntext of the presenting [facility] symptoms and the clinical findings. Elevated TnI leve ls indicate myocardial [facility] damage, but are not specific for ischem ic heart disease. Elevated TnI levels are seen in patients with other cardiac con ditions (including myocarditis and congestive heart failure), and slight T nI elevations occur in patients with other conditions, including sepsis, leny al failure, acidosis, acute neurological disease, and persistent tachyarrhythmia . Performing Organization Address [facility] one Number [address] [facility] * B-type Natriuretic Factor (BNP) (03/03/2019 12:12 PM CDT) BNP 60 0 - 100 pg/mL [facility] Specimen Blood Performing Organization Address City/[facility] Ph one Number [facility] [address] [place], [place] [address] [facility] * Magnesium (03/03/2019 12:12 PM CDT) Magnesium 1.4 (L) 1.6 - 2.6 mg/dL [facility] Specimen Blood Performing Organization Address [facility] Ph one Number [facility] [address] [place], [place] [address] [facility] after 10/08/2018 Insurance Payer Benefit Subscriber ID Type Phone Address Plan / Group [employer] TEX[employer] xxxxxxxxx Maps O ALL Contracted [id number] Advance Directives For more information, please contact: [address] [address] Date Inactivated Comments Code Status Date Activated [...]
--- OUTSIDE RECORDS SUMMARY | 2019-10-09 19:13 | XMS REPORT | Continuity of Care Document ---
Author Author [facility] t Organization [facility] Address [address] [place] [id number] Phone Unavailable Care Team Providers Care Sash Maker Name Role Phone MD AGA BRIDGES MD PCP Unavailable HAL BIGGS, YOVANA Attphys Unavailable MAIKOL ANAND Attphys Unavailable Shani BIGGS, Art Lemon Attphys Luz Plummer MD Attphys Corazon LEAVITT Attphys Unavailable MAIKOL RODAS Attphys Unavailable Maikol Rodas MD Attphys Dinesh BIGGS, Quang Attphys Christos BIGGS, Ryan Zaman Attphys Maribell BIGGS, Filipe Attphys Minnie BIGGS, Saundra Attphys Gato MAK, M Yulissa Attphys Unavailable Bryon BIGGS, Jose Mabry Attphys Bryon [facility], Varinder Attphys Unavailable Madan Waggoner MD Attphys Anil Reina MD Attphys LILY HASKINS Attphys Unavailable OFORDEME, OCTAVIANO CONNNISA Attphys Unavailable SHERINEPERCY Attphys Unavailable ANAND, MAIKOL Admphys Unavailable BERBERIAN, YOHANA Admphys Unavailable LEAVITT, Corazon LARSEN Admphys Unavailable MONTIEL, QUANG Admphys Unavailable HEIDY, YESENIA Admphys Unavailable BAAKLINI, HARITHA ARMANDO Admphys Unavailable VINCJERSON, MAKENZIE BARROSO Admphys Unavailable ACHARI, KAYLI SATURNINO Admphys Unavailable Payers Payer Name Policy Type Policy Number Effective Date Expiration Date Nataliya winkler Afshan [place] Plus Mcr o NA 2019 00:00:00 [facility] TEXANPLUSTEXANPLUS SAL [facility] [id number] 2018 00:00:00 Ayo Dovean Plus [id number] [facility] TEXANPLUSTEXANPLUS O ALLxxxxxxxxxMaps Contracted xxxxxxx xx [facility] Problems Condition Name Condition Details Condition Category Status Onset Date Resolution Date Last Treatment Date Treating Clinician Comments Source Complicated UTI (urinary tract infection) Complicated UTI (urinary tract infection) Disease Active 2019-07-10 00:00:00 H nyla Higgins Generalized weakness Generalized weakness Disease Active 00:00:00 [facility] PAF (paroxysmal atrial fibrillation) PAF (paroxysmal atrial fibrillation) Disease Active 2019-03-03 00:00:00 [facility] Acute cystitis without hematuria Acute cystitis without hematuri a Disease Active 2019-03-03 00:00:00 [facility] Metabolic encephalopathy Metabolic encephalopathy Disease Acti ve 2019-03-03 00:00:00 [facility] BPH (benign prostatic hyperplasia) BPH (benign prostatic hyperpl roberth) Disease Active 2019-03-03 00:00:00 [facility] Pyelonephritis Pyelonephritis Disease Active 2019-02-10 00:00:00 [facility] UTI (urinary tract infection) UTI (urinary tract infection) Disease Active 2019-02-08 00:00:00 [facility] AMS (altered mental status) AMS (altered mental status) Disease Active 2019-02-08 00:00:00 [facility] Chronic pain Chronic pain Disease Active 2019-01-23 00:00:00 [facility] Skin ulcer of left ankle, limited to breakdown of skin Skin ulcer of left ankle, limited to breakdown of skin Disease Active 2019-01-23 00:00:00 [facility] Benzodiazepine dependence Benzodiazepine dependence Disease Ac tive 2019-01-23 00:00:00 [facility] Opiate dependence Opiate dependence Disease Active 2019-01-23 00:00:00 [facility] HTN (hypertension) HTN (hypertension) Disease Active 2019-01-23 00:00:0 0 [facility] Atrial fibrillation Atrial fibrillation Disease Active 2019-01-23 00:00 :00 [facility] Alzheimer's dementia Alzheimer's dementia Disease Active 00:00:00 [facility] Type 2 diabetes mellitus Type 2 diabetes mellitus Disease Acti ve 2019-01-23 00:00:00 [facility] Pneumonia of right lower lobe due to infectious organi sm Pneumonia of right lower lobe due to infectious organism Disease Active 2018-09-11 00:00:00 [facility] Hemiparesis, unspecified hemiparesis etiology, unspeci fied laterality Hemiparesis, unspecified hemiparesis etiology, unspecified laterality Disease Active 2018-06-10 00:00:00 [facility] TIA (transient ischemic attack) TIA (transient ischemic attack) Dis ease Active 2018-06-10 00:00:00 [facility] Chronic back pain Chronic back pain Disease Active 2018-06-10 00:00:00 [facility] Sepsis, due to unspecified organism Sepsis, due to unspecified o rganism Disease Active 2018-01-22 00:00:00 [facility] Acute on chronic respiratory failure with hypoxia and hypercapnia Acute on chronic respiratory failure with hypoxia and hypercapnia Disease Act marleen 2018-01-22 00:00:00 [facility] Stage 3 severe COPD by GOLD classification Stage 3 sev ere COPD by GOLD classification Disease Active 2018-01-22 00:00:00 [facility] Hyponatremia Hyponatremia Disease Active 2018-01-22 00:00:00 [facility] Opiate or related narcotic overdose Opiate or related narcotic o verdose Disease Active 2018-01-10 00:00:00 [facility] Pneumonia of right middle lobe due to infectious organ ism Pneumonia of right middle lobe due to infectious organism Disease Active 2018-01-10 00:00:00 [facility] Respiratory distress Respiratory distress Disease Active 00:00:00 [facility] Altered mental status, unspecified altered mental stat us type Altered mental status, unspecified altered mental status type Disease Active 2018-01-10 00:00:00 [facility] Disorientation Disorientation Disease Active 2017-11-20 00:00:00 [facility] Endotracheally intubated Endotracheally intubated Disease Acti ve 2017-11-20 00:00:00 [facility] Acute hypercapnic respiratory failure Acute hypercapnic resp iratory failure Disease Active 2017-11-20 00:00:00 [facility] History of lung cancer History of lung cancer Disease Active 2017-11-20 00:00:00 [facility] CAD (coronary artery disease) CAD (coronary artery disease) Disease Active 2017-11-20 00:00:00 [facility] Smoking Smoking Disease Active 2017-11-20 00:00:00 [facility] First time seizure First time seizure Disease Active 2017-09-06 00:00:0 0 [facility] Cervical spine disease Cervical spine disease Disease Active 2017-05-01 00:00:00 [facility] Restrictive lung disease Restrictive lung disease Disease Acti ve 2017-04-29 00:00:00 [facility] COPD (chronic obstructive pulmonary disease) COPD (chr onic obstructive pulmonary disease) Disease Active 2017-04-29 00:00:00 [facility] Tremor of face and hands Tremor of face and hands Disease Acti ve 2013-12-01 00:00:00 [facility] Type 2 diabetes mellitus, without long-term current us e of insulin Type 2 diabetes mellitus, without long-term current use of insulin Disease Active 2012-10-07 00:00:00 [facility] CAD (coronary artery disease),BYPASS,AOR TO CORONARY OFF PUMP MONCADA-Diag, RSVG-OM, RSVG-rca by Dr Barillas 10/07/2012 CAD (coronary artery disease),BYPASS,AOR TO CORONARY OFF PUMP MONCADA-Diag, RSVG-OM, RSVG-rca by Dr Barillas 10/07/2012 Disease Ac tive 2012-10-06 00:00:00 [facility] Syncope Syncope Problem Active [facility] Pneumonia Problem Active [facility] Elevated blood pressure reading Problem Active [facility] Tobacco abuse Problem Active [facility] Opioid use, unspecified, uncomplicated Opioid use, unspecifi ed, uncomplicated Disease Active [facility] Allergies, Adverse Reactions, Alerts Allergy Name Allergy Type Status Severity Reaction(s) Onset Date Inacti ve Date Treating Clinician Comments Source Penicillins DA Active ID 2019-03-31 00:00:00 [facility] adhesive DA Active U 2019-03-31 00:00:00 [facility] levofloxacin DA Active U 2019-03-31 00:00:00 [facility] Fentanyl Allergy to substance Active Mild 2019-03-08 00:00:00 [facility] Levofloxacin Allergy to substance Active 2019-03-08 00:00:0 0 [facility] Fentanyl Propensity to adverse reactions Active Rash , Other (See Comments) 2018-01-10 00:00:00 Fentanyl patch [facility] Levofloxacin Propensity to adverse reactions to drug Active Rash 2017-11-20 00:00:00 [facility] Levofloxacin Propensity to adverse reactions to drug Active 2017-09-06 00:00:00 Ayo fu Penicillins DA Active ID 2016-01-02 00:00:00 [facility] adhesive DA Active U 2016-01-02 00:00:00 [facility] levofloxacin DA Active U 2016-01-02 00:00:00 [facility] Morphine Sulfate Drug Allergy Active Itching 2015-10-19 00:00:00 [facility] Adhesive Propensity to adverse reactions to drug Active Rash 2013-06-27 00:00:00 WEARING FENTANYL PATCH-LEFT SKIN RAW, RED, ITCHY Ayo Higgins Adhesive Drug Allergy Active Rash 2013-06-27 00:00:00 WEARING FENTANYL PATCH-LEFT SKIN RAW, RED, ITCHY [facility] Levofloxacin Drug Allergy Active Other (See Comments) 00:00:00 Hallucination, myalgia Hallucinations, jerking, vivid dreams [facility] Family History Family Member Diagnosis Comments Start Date Stop Date Source Natural father Other [facility] Natural father Leukemia [facility] Natural mother Other [facility] Natural mother Lung cancer [facility] Natural sister Other [facility] Natural sister Cataracts [facility] Social History Social Habit Start Date Stop Date Quantity Comments Source History of tobacco use Cigarette Smoker Ayo Higgins Sex Assigned At [facility] Cigarettes smoked current (pack per day) - Reported 00:00:00 2019-02-09 00:00:00 [facility] Cigarette pack-years 2019-02-09 00:00:00 2019-02-09 00:00:00 [facility] Alcohol intake 2019-02-09 00:00:00 2019-02-09 00:00:00 [facility] Tobacco Comment 2019-01-21 00:00:00 2019-01-21 00:00:00 have mya morales smoking for 40 years [facility] Smoking Status Start Date Stop Date Source Former smoker 2019-03-03 00:00:00 2019-03-03 00:00:00 [facility] Current every day smoker 2019-02-09 00:00:[address] [facility] Medications Ordered Medication Name Filled Medication Name Start Date Stop Da te Current Medication? Ordering Clinician Indication Dosage Frequency Signature (SIG) Comments Components Source gabapentin (NEURONTIN) 300 mg capsule 2019-07-11 11:45:18 Yes 600mg Q.[id number] Take 600 mg by mouth 3 (three) times a day. Ayo Higgins glimepiride (AMARYL) 4 MG tablet 2019-07-11 11:45:18 Yes 4mg QD Take 4 mg by mouth daily before breakfast. Radha Higgins lisinopril (PRINIVIL,ZESTRIL) 2.5 mg tablet 2019-07-11 11:45:18 Yes 2.5mg QD Take 2.5 mg by mouth daily. Ayo Higgins metFORMIN (GLUCOPHAGE) 1,000 mg tablet 2019-07-11 11:45:18 Yes 1000mg Q.5D Take 1,000 mg by mouth 2 (two) times a day with meals. Ayo Higgins NIFEdipine XL (PROCARDIA XL) 30 MG 24 hr tablet 2019-07-11 11:45 :18 Yes 30mg Q12H Take 30 mg by mouth every 12 (twelve) hours. Ayo Higgins pantoprazole (PROTONIX) 40 MG EC tablet 2019-07-11 11:45:18 Yes 40mg QD Take 40 mg by mouth daily. [facility] aspirin (ECOTRIN) 81 MG enteric coated tablet 2019-07-11 11:45:1 8 Yes 81mg QD Take 81 mg by mouth daily. Chloe Higgins baclofen (LIORESAL) 10 MG tablet 2019-07-11 11:45:18 Yes 10mg Q8H Take 10 mg by mouth every 8 (eight) hours as needed. Ayo Higgins atorvastatin (LIPITOR) 40 MG tablet 2019-07-11 11:45:18 Yes 40mg QD Take 40 mg by mouth daily. Ayo Higgins rOPINIRole (REQUIP) 2 MG tablet 2019-07-11 11:45:18 Yes 2mg Q.5D Take 2 mg by mouth 2 (two) times a day. Ayo Higgins nitroglycerin (NITROSTAT) 0.4 MG SL tablet 2019-07-11 11:45:[address] 0.4 mg under the tongue every 5 (five) minutes a s needed for chest pain. Ayo Higgins ALPRAZolam (XANAX) 2 MG tablet 2019-07-11 11:45:18 Yes 2mg Q.[id number] Take 2 mg by mouth 3 (three) times a day as needed for anxiety. Ayo Higgins apixaban (ELIQUIS) 5 mg tablet 2019-07-11 11:45:18 Yes 5mg Q.5D Take 5 mg by mouth 2 (two) times a day. Ayo Higgins clopidogreL (PLAVIX) 75 mg tablet 2019-07-11 11:45:18 Yes 75mg QD Take 75 mg by mouth daily. Ayo Higgins diltiazem CD (CardIZEM CD) 120 MG 24 hr capsule 2019-07-11 11:45 :18 Yes 120mg QD Take 120 mg by mouth daily. Ayo Higgins fenofibrate (LOFIBRA) 160 MG tablet 2019-07-11 11:45:18 Yes 160mg QD Take 160 mg by mouth daily. [facility] finasteride (PROSCAR) 5 mg tablet 2019-07-11 11:45:18 Yes 5mg QD Take 5 mg by mouth daily. Ayo Higgins HYDROcodone-acetaminophen (NORCO) 10-325 mg per tablet 2019-07-11 11:45:18 Yes acute pain 1{tbl} Q4H Take 1 tablet b y mouth every 4 (four) hours as needed for moderate pain .acute pain. Lance Higgins levETIRAcetam (KEPPRA) 500 MG tablet 2019-07-11 11:45:18 Yes 1000mg Q.5D Take 1,000 mg by mouth 2 (two) times a day. Ayo Higgins metoprolol succinate XL (TOPROL-XL) 25 mg 24 hr tablet 2019-07-11 11:45:18 Yes 25mg QD Take 25 mg by mouth daily. Ayo Higgins multivitamin (THERAGRAN) tablet 2019-07-11 11:45:18 Yes 1{tbl} QD Take 1 tablet by mouth daily. Ayo Higgins traZODone (DESYREL) 100 MG tablet 2019-07-11 11:45:18 Yes 100mg QD Take 100 mg by mouth nightly. Ayo estevez albuterol (ACCUNEB) 1.25 mg/3 mL nebulizer solution 07-10 11:45:18 Yes 1{ampule} Q4H Take 1 ampule by nebulization every 4 (four) hours as needed for wheezing. Ayo Higgins ipratropium (ATROVENT HFA) 17 mcg/actuation inhaler 07-10 11:45:18 Yes 2{puff} Q6H Inhale 2 puffs every 6 (six) hours. Ayo Higgins ondansetron (ZOFRAN) 4 MG tablet 2019-07-11 11:45:18 Yes 4mg Q8H Take 4 mg by mouth every 8 (eight) hours as needed for nausea or vomiting. Ayo Higgins cefuroxime (CEFTIN) 500 MG tablet 2019-07-11 00:00:00 2019 23:59:00 No 500mg Q.5D Take 1 tablet (5 00 mg total) by mouth 2 (two) times a day for 7 days. Ayo Higgins tamsulosin (FLOMAX) 0.4 mg capsule,extended release 24hr 2019-07-10 15:52:02 2019-07-10 00:00:00 No .4mg QD Take 0.4 mg by mouth daily. Ayo Higgins spironolactone (ALDACTONE) 50 MG tablet 15:51:49 2019-07-10 00:00:00 No 50mg QD Take 50 mg by mouth daily. [facility] clopid[facility] (PLAVIX) 75 mg tablet 2019-03-05 08:34:54 Yes 75mg QD Take 75 mg by mouth daily. [facility] dilTIAZem (CARDIZEM) 120 MG tablet 2019-03-05 08:34:54 Yes 120mg QD Take 120 mg by mouth daily. [facility] donepezil (ARICEPT ODT) 10 MG disintegrating tablet 2018-05 08:34:54 Yes 10mg QD Take 10 mg by mouth nightly. [facility] apixaban (ELIQUIS) 5 mg Tab tablet 2019-03-05 08:34:53 Yes 5mg Q.5D Take 5 mg by mouth 2 (two) times daily. [facility] levETIRAcetam (KEPPRA) 1000 MG tablet 2019-03-05 00:00 :00 2020-03-04 23:59:00 No 1000mg Q.5D Take 1 tablet (1,000 mg t otal) by mouth 2 (two) times daily. [facility] [address] [place] nitrofurantoin, macrocrystal-monohydrate, (MACROBID) 100 MG capsule 2019-03-05 00:00:00 2019-03-12 23:59:00 No 100mg Q.5D Take 1 capsule (100 mg total) by mouth 2 (two) times daily for 7 days. I [facility] escitalopram oxalate (LEXAPRO) 20 mg tablet 2019-02-10 11:47:58 Yes 20mg QD Take 20 mg by mouth daily. [facility] NIFEDIPINE CR 30 mg 24 hr delayed released tablet 2019-02-10 11:47:58 Yes 30mg QD Take 30 mg by mouth daily. [facility] metFORMIN (GLUCOPHAGE) 1,000 mg tablet 2019-02-10 11:47:58 Yes 1000mg Take 1,000 mg by mouth 2 times daily (with meals). [facility] glimepiride (AMARYL) 4 mg tablet 2019-02-10 11:47:58 Yes 4mg QD Take 4 mg by mouth every morning (before breakfast). [facility] ALPRAZolam (XANAX) 0.25 mg tablet 2019-02-10 11:47:58 Yes .25mg Take 0.25 mg by mouth nightly at bedtime as needed for Sleep. [facility] tamsulosin (FLOMAX) 0.4 mg extended release capsule 2018-05 11:47:58 Yes .4mg QD Take 0.4 mg by mouth daily. [facility] Donepezil 10 mg disintegrating tablet 2019-02-10 11:47:58 Y es 10mg Take 10 mg by mouth at bedtime nightly. [facility] metoprolol succinate (TOPROL XL) 50 mg extended release tabl et 2019-02-10 11:47:58 Yes 50mg QD Take 50 mg by mouth daily. [facility] lisinopril (PRINIVIL, ZESTRIL) 2.5 mg tablet 2019-02-10 11:47:58 Yes 2.5mg QD Take 2.5 mg by mouth daily. [facility] sulfamethoxazole-trimethoprim (BACTRIM DS) 800-160 mg per ta blet 2019-02-10 00:00:00 2019-02-23 23:59:00 No UTI due to e xtended-spectrum beta lactamase (ESBL) producing Escherichia coli 1{tbl} Q.5D Take 1 tablet by mouth 2 times daily for 13 days. [facility] sulfamethoxazole-trimethoprim (BACTRIM DS) 800-160 mg per ta blet 2019-02-10 00:00:00 2019-02-10 00:00:00 No UTI due to e xtended-spectrum beta lactamase (ESBL) producing Escherichia coli 1{tbl} Q.5D Take 1 tablet by mouth 2 times daily for 13 days. [facility] sulfamethoxazole-trimethoprim (BACTRIM DS) 800-160 mg per ta blet 2019-02-08 00:00:00 2019-02-10 00:00:00 No UTI due to e xtended-spectrum beta lactamase (ESBL) producing Escherichia coli 1{tbl} Q.5D Take 1 tablet by mouth 2 times daily for 10 days. [facility] cefpodoxime (VANTIN) 200 mg tablet 2019-02-05 00:00:00 01-10-11 00:00:00 No Acute cystitis without hematuria 200mg Q.5D Take 1 tablet by mouth 2 times daily for 10 days. [facility] cefpodoxime (VANTIN) 200 mg tablet 2019-02-05 00:00:00 201 01-10-06 00:00:00 No Acute cystitis without hematuria 200mg Q.5D Take 1 tablet by mouth 2 times daily for 10 days. [facility] Levetiracetam (KEPPRA) 1,000 mg tablet 2019-01-02 6 10:47:28 2019-01-26 00:00:00 No 1000mg Take 1,000 mg by mouth. [facility] SPIRONOLACTONE OR 2019-01-26 10:47:27 2019-01-26 00:00:00 No 50mg Take 50 mg by mouth. [facility] pantoprazole (PROTONIX) 40 mg delayed release tablet 2019-01-26 10:47:27 2019-01-26 00:00:00 No 40mg QD Take 40 mg by mouth daily. [facility] baclofen (LIORESAL) 10 mg tablet 2019-01-26 10:47:27 2019-01 00:00:00 No 10mg Take 10 mg by mouth 3 times daily. [facility] HYDROmorphone (DILAUDID) 4 mg tablet 2019-01-26 10:47: 27 2019-01-26 00:00:00 No 4mg Take 4 mg by mouth every 6 hours as need ed for Pain. [facility] nitroGLYCERIN (NITROSTAT) 0.4 mg sublingual tablet 2019-01-26 10:47:27 2019-01-26 00:00:[address] 0.4 mg under tongue every 5 minutes as needed for Chest pain Dissolve 1 tablet under the tongue every 5 minutes as needed, up to 3 times. If chest pain persists, call 911 . [facility] hydrALAZINE (APRESOLINE) 50 mg tablet 2019-01-26 10:47 :27 2019-01-26 00:00:00 No 50mg Take 50 mg by mouth 3 times daily. [facility] traZODone (DESYREL) 100 mg tablet 2019-01-26 10:47:27 2018 00:00:00 No 100mg Q.5D Take 100 mg by mouth 2 times daily. [facility] clopidogrel (PLAVIX) 75 mg tablet 2019-01-26 10:47:27 2018 00:00:00 No 75mg Take 75 mg by mouth. [facility] diltiazem (CARDIZEM) 120 mg tablet 2019-01-26 10:47:27 201 01-09-26 00:00:00 No 120mg Take 120 mg by mouth. [facility] amoxicillin-clavulanate (AUGMENTIN) 875-125 mg per tablet 2019-01-26 00:00:00 2019-01-28 23:59:00 No Aspiration pneumonia of right lung due to vomit, unspecified part of lung 1{tbl} Q.5D Take 1 tablet b y mouth 2 times daily for 3 doses. [facility] amoxicillin-clavulanate (AUGMENTIN) 875-125 mg per tablet 2019-01-26 00:00:00 2019-01-26 00:00:00 No Aspiration pneumonia of right lung due to vomit, unspecified part of lung 1{tbl} Q.5D Take 1 tablet b y mouth 2 times daily for 3 doses. [facility] ondansetron (ZOFRAN-ODT) 4 mg disintegrating tablet 2019-01-22 14:30:57 2019-01-22 00:00:00 No 4mg Take 4 mg by mouth every 8 hours as needed for Nausea. [facility] traZODone (DESYREL) 100 MG tablet 2019-01-16 00:00:00 Yes 100{tbl} QD Take 100 tablets by mouth nightly. [facility] gabapentin (NEURONTIN) 600 MG tablet 2019-01-10 00:00:00 Yes 600mg Q.[id number] Take 600 mg by mouth 3 (three) times daily. [facility] gabapentin (NEURONTIN) 600 mg tablet 2019-01-10 00:00:00 Ye s 600mg Take 600 mg by mouth. [facility] ALPRAZolam (XANAX) 2 MG tablet 2018-12-29 00:00:00 Yes 2mg Q.[id number] Take 2 mg by mouth 3 (three) times daily. [facility] HYDROcodone-acetaminophen (NORCO 10-325) 10-325 mg per table t 2018-12-29 00:00:00 Yes 10{tbl} Take 10-32 5 tablets by mouth every 6 (six) hours as needed for Pain. [facility] HYDROcodone-acetaminophen (NORCO) 10-325 mg tablet 2018-12 00:00:00 Yes TAKE ONE TABLET BY MOUTH EVERY 4 HOURS A S NEEDED FOR PAIN [facility] finasteride (PROSCAR) 5 mg tablet 2018-10-18 00:00:00 Yes TAKE ONE TABLET BY MOUTH EVERY DAY [facility] citalopram (CELEXA) 10 mg tablet 2018-09-28 00:00:00 2019-01 00:00:00 No 20mg Take 20 mg by mouth. [facility] predniSONE (DELTASONE) 20 mg tablet 2018-09-18 00:00:0 0 2018-10-18 23:59:00 No 20mg QD Take 1 tablet (20 mg total) by mouth dari ly for 30 days. Ayo Higgins hydrALAZINE (APRESOLINE) 50 MG tablet 2018-09-17 00:00 :00 2018-10-17 23:59:00 No 50mg Q.5D Take 1 tablet ( 50 mg total) by mouth 2 (two) times a day for 30 days. Ayo Higgins ipratropium-albuterol (DUO-NEB) 0.5-2.5 mg/3 mL nebulizer 2018-09-17 00:00:00 2018-10-17 23:59:00 No 3mL Q.[id number] Take 3 mL by nebulization every 6 (six) hours while awake for 30 days. Ayo Higgins guaiFENesin (MUCINEX) 600 mg tablet extended release 12hr 2018-09-17 00:00:00 2018-10-17 23:59:00 No 1200mg Q.5D Take 2 tablets (1,200 mg total) by mouth 2 (two) times a day for 30 days. Ayo Higgins albuterol (PROVENTIL) 2.5 mg /3 mL (0.083 %) nebulizer solut ion 2018-08-22 00:00:00 Yes 2.5mg Inhale 2.5 mg by mouth. [facility] rOPINIRole (REQUIP) 2 MG tablet 2018-07-15 00:00:00 Yes 2mg Q.5D Take 2 mg by mouth 2 (two) times daily. [facility] rOPINIRole (REQUIP) 2 mg tablet 2018-07-15 00:00:00 00:00:00 No 2mg Take 2 mg by mouth. [facility] HYDROmorphone (DILAUDID) 4 MG tablet 2018-06-10 16:06:37 Ye s 4mg Take 4 mg by mouth every 6 (six) hours as needed for Pain. [facility] finasteride (PROSCAR) 5 mg tablet 2018-06-10 16:06:36 Yes 5mg QD Take 5 mg by mouth daily. [facility] ALPRAZolam (XANAX) 1 MG tablet 2018-01-26 00:00:00 2019-01-26 23 :59:00 No 1mg Take 1 tablet (1 mg total) b y mouth 2 (two) times daily as needed for Anxiety. Max Daily Amount: 2 mg [facility] melatonin 5 mg Tab tablet 2018-01-26 00:00:00 2019-01-26 23:59:0 0 No 5mg Take 1 tablet (5 mg total) by mouth every night as needed (Insom charmaine). [facility] NIFEdipine (ADALAT CC) 30 MG 24 hr tablet 01-26 00:00:00 2019-01-26 23:59:00 No 30mg QD Take 1 tablet (30 mg total) by mouth daily. [facility] lisinopril (PRINIVIL,ZESTRIL) 2.5 MG tablet 2017 00:00:00 2019-01-26 23:59:00 No 2.5mg QD Take 1 tablet (2.5 mg total) by mouth daily. [facility] aspirin (ASPIRIN) 81 mg chewable tablet 2017-11-24 00:00:00 Yes Coronary artery disease involving coronary bypass graft of [place] heart, angina presence unspecified 81mg QD Chew and swallow 1 tablet by mouth daily. [facility] nicotine (NICODERM CQ) 14 mg/24 hr patch 2017-11-24 00:00:00 Yes Smoking 1{patch} QD Apply 1 Patch to skin as directed daily. [facility] atorvastatin (LIPITOR) 40 mg tablet 2017-11-23 00:00:00 Yes Coronary artery disease involving coronary bypass graft of [place] heart, angina presence unspecified 40mg Take 1 tablet by mouth at bedtime nightly. [facility] ipratropium (ATROVENT HFA) 17 mcg/actuation inhaler 05-11 00:00:00 Yes 2{puff} QD Inhale 2 puffs by mouth via inhaler surekha adler [facility] ipratropium (ATROVENT HFA) 17 mcg/actuation inhaler 05-11 00:00:00 Yes 2{puff} Inhale 2 Puffs by mouth. [facility] aspirin 81 MG chewable tablet 2017-04-27 23:23:18 Yes 81mg QD Take 81 mg by mouth daily. [facility] tamsulosin (FLOMAX) 0.4 mg Cp24 24 hr capsule 2017-04-27 23:23:1 8 Yes .4mg QD Take 0.4 mg by mouth daily. [facility] atorvastatin (LIPITOR) 40 MG tablet 2017-04-27 23:23:17 Yes 40mg QD Take 40 mg by mouth daily. [facility] metFORMIN (GLUCOPHAGE) 1000 MG tablet 2017-04-27 23:23:17 Y es 1000mg Take 1,000 mg by mouth 2 (two) times daily with breakfast and dinner. [facility] albuterol (PROVENTIL) 2.5 mg/0.5 mL Nebu nebulizer solution 2013-12-05 00:00:00 Yes 2.5mg Take 0.5 m Ls (2.5 mg total) by nebulization every 4 (four) hours as needed (sob). [facility] pantoprazole (PROTONIX) 40 MG tablet 2013-09-24 23:46:54 Ye s 40mg QD Take 40 mg by mouth daily. [facility] fenofibrate (TRIGLIDE) 160 MG tablet 2012-10-12 00:00:00 Ye s 160mg QD Take 1 tablet (160 mg total) by mouth daily. [facility] fenofibrate (LOFIBRA) 160 mg tablet 2012-10-12 00:00:0 0 2019-01-26 00:00:00 No TAKE 1 TABLET BY MOUTH EVERY DAY IN THE MORNING [facility] glimepiride (AMARYL) 4 MG tablet 2012-10-05 14:47:17 Yes 4mg Take 4 mg by mouth every morning before breakfast. [facility] Alprazolam Alprazolam Yes 2 Three Time s A Day as needed for Anxiety [facility] Atorvastatin Calcium Atorvastatin Calcium Yes 40 Bedtime [facility] Baclofen Baclofen Yes 10 Every 8 Hours as needed for Muscle Spasms [facility] Finasteride Finasteride Yes 5 Daily [facility] Gabapentin Gabapentin Yes 300 Three Times A Day [facility] Glimepiride Glimepiride Yes 4 Daily [facility] Hydrocodone Bit/Acetaminophen (Hydrocodon-Acetaminophn 10-325) 1 Each TABLET Hydrocodone Bit/Acetaminophen (Hydrocodon-Acetaminophn 10-325) 1 Each TABLET Yes 1 Every 4 Hours as needed for Mode rate Pain (4-6) [facility] Metformin Hcl Metformin Hcl Yes 1000 Twice A Day [facility] Nitroglycerin Nitroglycerin Yes .4 Every 5 Minutes as needed for Chest Pain [facility] Ondansetron Hcl Ondansetron Hcl Yes 4 Three Times A Day as needed for Nausea [facility] Tamsulosin Hcl (Flomax*) 0.4 Mg CAP Tamsulosin Hcl (Flomax*) 0.4 Mg C AP Yes .4 Daily [facility] Trazodone Hcl Trazodone Hcl Yes 100 Bedtime [facility] Immunizations Ordered Immunization Name Filled Immunization Name Date Status Comments Source Pneumococcal Conjugate 13-Valent 2018-09-17 00:00:00 Alvarado Higgins Vital Signs Vital Name Observation Time Observation Value Comments Source Body Temperature 2019-10-02 11:25:00 97.5 [degF] [facility] Weight 2019-10-02 05:35:00 175.56 [lb_av] [facility] BMI (Body Mass Index) 2019-10-02 05:35:00 25.2 kg/m2 [facility] Body Temperature 2019-09-21 08:40:00 97.1 [degF] [facility] BMI (Body Mass Index) 2019-09-21 01:42:00 26.5 kg/m2 [facility] Weight 2019-09-20 00:40:00 185 [lb_av] [facility] Systolic blood pressure 2019-07-11 07:00:36 116 mm[Hg] [facility] Diastolic blood pressure 2019-07-11 07:00:36 53 mm[Hg] [facility] Heart rate 2019-07-11 07:00:36 77 /min [facility] Body temperature 2019-07-11 07:00:36 36.39 Lainey [facility] [employer] Respiratory rate 2019-07-11 07:00:36 18 /min [facility] in Arterial blood by Pulse oximetry 07-10 07:00:36 97 /min [facility] [facility] Body height 2019-07-10 11:02:00 177.8 cm [facility] Body weight 2019-07-10 11:02:00 74.9 kg [facility] [facility] BMI 2019-07-10 11:02:00 23.69 kg/m2 [facility] Heart rate 2019-03-05 10:00:00 86 /min [facility] Respiratory rate 2019-03-05 10:00:00 18 /min [facility] Oxygen saturation in Arterial blood by Pulse oximetry 2018-05 10:00:00 95 /min [facility] Systolic blood pressure 2019-03-05 07:34:00 150 mm[Hg] [facility] Diastolic blood pressure 2019-03-05 07:34:00 78 mm[Hg] [facility] Body temperature 2019-03-05 07:34:00 36.78 Lainey [facility] Oxygen saturation in Arterial blood by Pulse oximetry 2018-05 07:47:00 95 /min [facility] Systolic blood pressure 2019-02-10 07:42:00 136 mm[Hg] [facility] Diastolic blood pressure 2019-02-10 07:42:00 64 mm[Hg] [facility] Heart rate 2019-02-10 07:42:00 73 /min [facility] Body temperature 2019-02-10 07:42:00 36.44 Lainey Alexia is [facility] Respiratory rate 2019-02-10 07:42:00 20 /min Alexia is [facility] Body height 2019-02-09 05:42:00 177.8 cm [facility] Body weight 2019-02-09 05:42:00 71.85 kg [facility] BMI 2019-02-09 05:42:00 22.73 kg/m2 [facility] Procedures Procedure Date / Time Performed Performing Clinician [facility] e Computed tomography of brain without radiopaque contrast 2019-09 00:00:00 [facility] Computed tomography of chest without contrast 2019-09-24 00:00:0 0 [facility] Computed tomography of lumbar spine without contrast 2019-09-24 00:00:00 [facility] Computed tomography of chest without contrast 2019-09-12 00:00:0 0 [facility] BASIC METABOLIC PANEL 2019-07-11 08:47:00 Riri Pearson MAGNESIUM LEVEL 2019-07-11 08:47:00 Riri Pearson ESTIMATED GFR 2019-07-11 08:47:00 Riri Pearson POC GLUCOSE 2019-07-11 06:33:00 Yohana Plummer POC GLUCOSE 2019-07-11 06:00:00 Yohana Plummer [employer] POC GLUCOSE 2019-07-10 21:43:00 Yohana Plummer POC GLUCOSE 2019-07-10 18:29:00 Yohana Plummer [employer] POC GLUCOSE 2019-07-10 15:54:00 Yohana Plummer [employer] ECG 12-LEAD 2019-07-10 13:06:30 Riri Pearson [employer] POC GLUCOSE 2019-07-10 11:51:00 Yohana Plummer LACTIC ACID LEVEL, SEPSIS - NOW AND REPEAT 2X EVERY 3 HOURS 2019-07-10 06:49:00 Ion Mcleod TROPONIN 2019-07-10 06:49:00 Ion Mcleod LACTIC ACID LEVEL, SEPSIS - NOW AND REPEAT 2X EVERY 3 HOURS 2019-07-10 04:06:00 Ion Mcleod TROPONIN 2019-07-10 04:06:00 Ion Mcleod URINE CULTURE 2019-07-10 03:12:00 Ion Mcleod URINALYSIS SCREEN AND MICROSCOPY, WITH REFLEX TO CULTURE 202 02:09:[address] ABDOMEN PELVIS WO CONTRAST 2019-07-10 01:18:16 Ion Mcleod HC COMPLETE BLD COUNT W/AUTO DIFF 2019-07-10 01:05:00 Shwan Mcleod COMPREHENSIVE METABOLIC PANEL 2019-07-10 01:05:00 Ion Mcleod LACTIC ACID LEVEL, SEPSIS - NOW AND REPEAT 2X EVERY 3 HOURS 2019-07-10 01:05:00 Ion Mcleod LIPASE LEVEL 2019-07-10 01:05:00 Ion Mcleod TROPONIN 2019-07-10 01:05:00 Ion Mcleod B NATRIURETIC PEPTIDE 2019-07-10 01:05:00 Ion Mcleod ESTIMATED GFR 2019-07-10 01:05:00 Ion Mcleod RHYTHM STRIP - SCAN 2019-03-08 08:52:12 Provider, Default Scanni andrew [facility] REPORT OF PROCEDURE - ENDOSCOPY SCAN 2019-03-08 08:52:10 Pro vider, Default Scanning [facility] Computed tomography of brain without radiopaque contrast 201 01-11-06 00:00:00 AMIRAH LECHUGA [facility] POCT-GLUCOSE METER 2019-03-05 07:30:00 Dinesh [facility] BASIC METABOLIC PANEL (7) 2019-03-05 05:46:00 Dinesh [facility] CBC W/PLT COUNT & AUTO DIFFERENTIAL 2019-03-05 05:46:00 Isabella Montiel [facility] POCT-GLUCOSE METER 2019-03-04 21:10:00 Dinesh [facility] POCT-GLUCOSE METER 2019-03-04 18:01:00 Dinesh [facility] POCT-GLUCOSE METER 2019-03-04 12:48:00 Dinesh [facility] POCT-GLUCOSE METER 2019-03-04 07:53:[facility] 2019-03-04 02:35:00 Adriane Pop [facility] BASIC METABOLIC PANEL (7) 2019-03-04 02:35:00 Dinesh [facility] CBC W/PLT COUNT & AUTO DIFFERENTIAL 2019-03-04 02:34:00 Isabella Montiel [facility] POCT-GLUCOSE METER 2019-03-03 20:57:00 Dinesh [facility] POCT-GLUCOSE METER 2019-03-03 17:22:00 Dinesh [facility] URINE CULTURE 2019-03-03 13:55:00 Tammy Styles [facility] URINALYSIS W/ REFLEX URINE CULTURE 2019-03-03 13:55:00 Janet Styles [facility] RAPID DRUG SCREEN, URINE 2019-03-03 13:55:00 Yvan Rodas [facility] BLOOD CULTURE 2019-03-03 13:07:00 Yvan Rodas [facility] BLOOD CULTURE 2019-03-03 13:00:00 Yvan Rodas [facility] CT BRAIN WITHOUT IV CONTRAST 2019-03-03 12:50:00 Yvan Rodas [facility] XR CHEST 1 VIEW PORTABLE/BEDSIDE 2019-03-03 12:25:00 StephaniEsme [facility] ECG 12-LEAD 2019-03-03 12:24:23 Unknown, Hl7 Doctor [facility] POCT-LACTIC ACID, VENOUS 2019-03-03 12:19:00 Yvan Rodas [facility] BASIC METABOLIC PANEL (7) 2019-03-03 12:12:00 Tammy Styles Christoph alicia [facility] MAGNESIUM 2019-03-03 12:12:00 Tammy Styles Lacy [facility] B-TYPE NATRIURETIC FACTOR (BNP) 2019-03-03 12:12:00 Soren Styles [facility] TROPONIN I 2019-03-03 12:12:00 Tammy Styles [facility] CBC W/PLT COUNT & AUTO DIFFERENTIAL 2019-03-03 12:12:00 Stephani Tammy [facility] GLUCOSE POC 2019-02-10 12:46:00 Saundra Hartman h CBC/DIFF 2019-02-10 08:37:00 Roma Lundberg [facility] COMPREHENSIVE METABOLIC PANEL 2019-02-10 08:37:00 Miguel Lundberg [facility] MAGNESIUM 2019-02-10 08:37:00 Roma Lundberg [facility] CALCIUM, IONIZED 2019-02-10 08:37:00 Roma Lundberg [facility] PHOSPHORUS 2019-02-10 08:37:00 Roma Lundberg [facility] CBC 2019-02-10 08:37:00 Roma Lundberg [facility] GLUCOSE POC 2019-02-10 01:29:00 Saundra Hartman h GLUCOSE POC 2019-02-09 22:09:00 Saundra Hartman h GLUCOSE POC 2019-02-09 17:54:00 Saundra Hartman h GLUCOSE POC 2019-02-09 16:49:00 Saundra Hartman h LIVER PROFILE 2019-02-09 13:55:00 Alma Bingham h MAGNESIUM 2019-02-09 13:55:00 Alma Binghamt h PHOSPHORUS 2019-02-09 13:55:00 [facility]Alma [facility] BASIC METABOLIC PANEL 2019-02-09 13:55:00 Roma [facility]berg [facility] GLUCOSE POC 2019-02-09 13:53:00 PuravathPhoebedouglas [facility] GLUCOSE POC 2019-02-09 13:16:00 PuravathPhoebedouglas [facility] 2019-02-09 10:36:00 Puravath [facility]ra [facility] URINALYSIS 2019-02-09 10:34:00 [facility]ma [facility] 2019-02-09 10:34:00 Stephani Dixon [facility] URINE CULTURE 2019-02-09 10:34:00 [facility] 2019-02-09 09:37:00 PurchapinPhoebedouglas [facility] IP CONSULT WITH INSIGHT 2019-02-09 09:36:26 Archie Banks [facility] Health CALCIUM, IONIZED 2019-02-09 08:29:00 Zachery Alma Jin [facility] CBC/DIFF 2019-02-09 08:29:00 Hanastrid [facility] CBC 2019-02-09 08:29:00 Zachery [facility] DIFFERENTIAL, MANUAL-WAM 2019-02-09 08:29:[address] [facility] Health GLUCOSE POC 2019-02-09 07:58:00 [facility] 2019-02-09 07:42:[address] ABDOMEN AND PELVIS CONTRAST 2019-02-09 06:17:00 Abel Dixon [facility] VBG POC 2019-02-09 03:54:00 Austyn Sher [facility] XRAY CHEST 1 VIEW 2019-02-09 02:17:24 Stephani Dixon [facility] CBC/DIFF 2019-02-09 01:41:00 Stephani Dixon [facility] PT/INR/PTT 2019-02-09 01:41:00 Stephani Dixon [facility] CBC 2019-02-09 01:41:00 Stephani Dixon [facility] BLOOD CULTURE 2019-02-09 01:41:00 Stephani Dixon [facility] BLOOD CULTURE 2019-02-09 01:40:00 Stephani Dixon [facility] VBG POC 2019-02-09 00:47:00 Unknown, Provider [facility] TROPONIN I POC 2019-02-09 00:45:00 Unknown, Provider [facility] BMP POC 2019-02-09 00:44:00 Unknown, Provider [facility] URINE CULTURE 2019-02-05 16:06:00 Fidel [facility] URINE CULTURE 2019-02-05 15:46:00 [facility] URINALYSIS 2019-02-05 14:14:00 Fidel [facility] URINALYSIS 2019-02-05 14:14:00 Fidel [facility]quez [facility] BMP POC 2019-02-05 13:52:00 Clotilde Slater [facility] VBG POC 2019-02-05 13:52:00 Clotilde Slater [facility] XRAY CHEST 1 VIEW 2019-02-05 13:50:08 Fidel Vazquez [facility] CBC/DIFF 2019-02-05 13:45:00 Fidel [facility] CBC 2019-02-05 13:45:00 Fidel [facility]quez [facility] GLUCOSE POC 2019-01-26 13:08:00 Alteha Reina [facility] CBC/DIFF 2019-01-26 08:47:00 [facility] BASIC METABOLIC PANEL 2019-01-26 08:47:00 Prosper Carmona [facility] CBC 2019-01-26 08:47:00 [facility] 2019-01-25 21:48:00 Aletha Reina [facility]alt [facility] GLUCOSE POC 2019-01-25 17:43:00 Aletha Reina [facility] GLUCOSE POC 2019-01-25 13:31:00 Aletha Reina [facility] CBC/DIFF 2019-01-25 08:37:00 [facility] CBC 2019-01-25 08:37:00 [facility] BASIC METABOLIC PANEL 2019-01-25 08:36:00 Prosper Carmona [facility] MAGNESIUM 2019-01-25 08:36:00 [facility] NUTRITION CONSULT ASSESSMENT 2019-01-25 02:04:18 Aletha Reina Health GLUCOSE POC 2019-01-25 01:47:00 Aletha Reina [facility] GLUCOSE POC 2019-01-24 21:53:00 Aletha Reina [facility] GLUCOSE POC 2019-01-24 16:51:00 Aletha Reina [facility] GLUCOSE POC 2019-01-24 12:46:00 Aletha [facility]ina [facility] BASIC METABOLIC PANEL 2019-01-24 10:19:00 Prosper Carmona Health CALCIUM, IONIZED 2019-01-24 10:19:00 Prosper Carmona [facility] CBC/DIFF 2019-01-24 10:19:00 [facility] MAGNESIUM 2019-01-24 10:19:00 [facility] PHOSPHORUS 2019-01-24 10:19:00 [facility] CBC 2019-01-24 10:19:00 [facility] GLUCOSE POC 2019-01-24 02:19:00 Aletha Reina [facility]alt [facility] GLUCOSE POC 2019-01-23 22:28:00 Aletha Reina [facility] IP CONSULT TO PHYSICAL THERAPY 2019-01-23 19:54:48 Pia Carmona [facility] GLUCOSE POC 2019-01-23 17:09:00 Aletha Reina [facility]alt [facility] GLUCOSE POC 2019-01-23 12:31:00 Aletha Reina [facility] BASIC METABOLIC PANEL 2019-01-23 09:20:00 Prosper Carmona [facility] MAGNESIUM 2019-01-23 09:20:00 [facility] PHOSPHORUS 2019-01-23 09:20:00 [facility] CALCIUM, IONIZED 2019-01-23 09:20:00 Prosper Carmona [facility] CBC/DIFF 2019-01-23 09:20:00 [facility]per [facility] CBC 2019-01-23 09:20:00 Mathew Prosper Anil Bullock s Health GLUCOSE POC 2019-01-23 01:51:00 Aletha Reina [facility] GLUCOSE POC 2019-01-22 22:14:00 Aletha Reina [facility] GLUCOSE POC 2019-01-22 17:13:00 Aletha Reina [facility] IP CONSULT TO SPEECH LANGUAGE PATHOLOGY 2019-01-22 14:48:08 Prosper Carmona [facility] GLUCOSE POC 2019-01-22 13:40:00 Aletha Reina [facility] PT/INR 2019-01-22 09:12:00 Bret Burns [facility] CBC/DIFF 2019-01-22 09:11:00 Bret Burns [facility] BASIC METABOLIC PANEL 2019-01-22 09:11:00 Bret Burns Health MAGNESIUM 2019-01-22 09:11:00 Bret Burns [facility] PHOSPHORUS 2019-01-22 09:11:00 Bret Burns [facility] HEMOGLOBIN A1C 2019-01-22 09:11:00 Maria Ines Paz [facility]alt [facility] CBC 2019-01-22 09:11:00 Bret Burns [facility] XRAY CHEST 2 VIEWS 2019-01-21 23:03:28 Bret Burns He [facility] BASIC METABOLIC PANEL 2019-01-21 22:37:00 Bret Burns [facility] IP CONSULT TO PHYSICAL THERAPY 2019-01-21 22:16:52 Bret Burns [facility] XRAY FOOT 3 VIEWS MIN 2019-01-21 21:40:42 [facility] XRAY ANKLE 3 VIEW MIN 2019-01-21 21:40:42 [facility] VBG POC 2019-01-21 20:25:00 Herbert Waggoner [facility] CBC/DIFF 2019-01-21 18:14:00 Denver Lópeza [facility]th CBC 2019-01-21 18:14:00 Denver López [facility] RAINBOW DRAW 2019-01-21 18:14:00 Herbert Waggoner GOLD TOP TUBE 2019-01-21 18:14:00 Herbert Waggoner PURPLE TOP TUBE 2019-01-21 18:14:00 Herbert Waggoner BLOOD CULTURE 2019-01-21 18:14:00 Denver López [facility] XRAY CHEST 1 VIEW 2019-01-21 18:09:00 Denver López [facility] BMP POC 2019-01-21 17:54:00 Herbert Waggoner VBG POC 2019-01-21 17:54:00 Herbert Waggoner 12 LEAD EKG 2019-01-21 17:52:44 Herbert Waggoner TROPONIN I POC 2019-01-21 17:52:00 Herbert Waggoner Plan of Care Planned Activity Planned Date Details Comments Source Future Scheduled Test 2020-02-01 00:00:00 IMM Influenza Seas onal Jan to July (>/= 19 yrs) [code = IMM Influenza Seasonal Jan to July (>/= 19 yrs)] [facility] Scheduled Test 2020-01-23 00:00:00 DM HGBA1C (Yearly) [code = DM HGBA1C (Yearly)] [facility] Scheduled Test 2019-12-02 00:00:00 INFLUENZA VACCINE [code = INFLUENZA VACCINE] [facility] Scheduled Test 2019-05-04 00:00:00 MEDICARE ANNUAL WE LLNESS (YEAR 2 or FIRST YEAR if no IPPE) [code = MEDICARE ANNUAL WELLNESS (YEAR 2 or FIRST YEAR if no IPPE)] [facility] Future Scheduled Test 2018-12-09 00:00:00 HEMOGLOBIN A1C [co de = HEMOGLOBIN A1C] [facility] Future Scheduled Test 2018-11-20 00:00:00 CORONARY ARTERY DI SEASE AGE 18 AND UP [code = CORONARY ARTERY DISEASE AGE 18 AND UP] [facility] Scheduled Test 2010 00:00:00 IMM Pneumococcal A ge 65 and Up [code = IMM Pneumococcal Age 65 and Up] [facility] Scheduled Test 1995 00:00:00 COLONOSCOPY SCREEN ING [code = COLONOSCOPY SCREENING] [facility] Scheduled Test 1995 00:00:00 SHINGLES VACCINES (#1) [code = SHINGLES VACCINES (#1)] [facility] Scheduled Test 1995 00:00:00 Colorectal Cancer Scrn Annual (FIT/FOBT) Age 50 to 75 [code = Colorectal Cancer Scrn Annual (FIT/FOBT) Age 50 to 75] [facility] Scheduled Test 1963 00:00:00 DM Foot Exam (Year ly) [code = DM Foot Exam (Yearly)] [facility] Scheduled Test 1963 00:00:00 DM Retinal Exam (Y early) [code = DM Retinal Exam (Yearly)] [facility] Scheduled Test 1955 00:00:00 DIABETIC FOOT EXAM [code = DIABETIC FOOT EXAM] [facility] Scheduled Test 1955 00:00:00 DIABETIC EYE EXAM [code = DIABETIC EYE EXAM] [facility] Scheduled Test 1955 00:00:00 Diabetic foot exam ination (regime/therapy) [code = 914705280] [facility] Future Scheduled Test 1945 00:00:00 DIABETIC RETINAL E YE EXAM [code = DIABETIC RETINAL EYE EXAM] [facility] Scheduled Test 1945 00:00:00 COLON CANCER SCREE KATHY COLONOSCOPY [code = COLON CANCER SCREENING COLONOSCOPY] [facility] Instructions Urinary Tract Infection - Men [facility] Encounters Start Date/Time End Date/Time Encounter Type Admission Type Attendi [facility] Care Department Encounter ID Source 2019-02-09 00:57:35 Inpatient [facility] [id number] [facility] 2019-01-23 13:25:34 Inpatient [facility] [id number] [facility] 2019-01-21 17:51:54 Inpatient [facility] [id number] [facility] 2019-01-21 12:46:30 Inpatient [facility] [id number] [facility] 2017-11-20 01:59:05 Inpatient [facility] [id number] [facility] 2019-09-24 03:51:00 2019-10-02 12:57:00 Discharged Inpatient 1 MAIKOL ANAND [facility] [id number] [facility] 2019-09-12 22:01:00 2019-09-21 12:10:00 Discharged Inpatient 1 MAIKOL ANAND [facility] [id number] [facility] 2019-07-10 00:00:00 2019-07-11 00:00:00 Outpatient JEB PLUMMER [facility] [id number] [facility] 2019-03-27 00:00:00 2019-03-27 00:00:00 Outpatient [facility] [id number] [facility] 2019-03-08 14:09:00 2019-03-09 13:51:00 Discharged Inpatient (obs) 1 SUZIE LEAVITT [facility] [id number] [facility] 2019-03-06 00:00:00 2019-03-06 00:00:00 Outpatient [facility] [id number] [facility] 2019-02-08 20:44:40 2019-02-08 20:44:40 Emergency [facility] [id number] [facility] 2019-02-08 19:40:48 2019-02-08 19:40:48 Inpatient [facility] [id number] [facility] 2019-02-08 00:00:00 2019-02-08 00:00:00 Emergency [facility] [id number] [facility] 2019-02-05 08:41:04 2019-02-05 08:41:04 Emergency [facility] [id number] [facility] 2019-02-05 07:55:05 2019-02-05 07:55:05 Emergency [facility] [id number] [facility] 2019-01-21 16:26:05 2019-01-21 16:26:05 Emergency [facility] [id number] [facility] 2019-01-21 12:58:30 2019-01-21 12:58:30 Emergency [facility] [id number] [facility] Results Test Description Test Time Test Comments Results Result Comments Source CT ABDOMEN/PELVIS W 2019-10-09 18:32:00 [facility] [address] [address] Patient Name: MARLEN NOLAND MR #: [id number] : 1945 [facility] 74[id number] Re #: [id number] [facility] Physician: Ordered by: YOVANA HONG MD, MD Report #: [id number] Location: Room/Bed: Procedure: [id number] CT/CT ABDOMEN/PELVIS W Exam Date: 10/09/19 Exam Time: 1749 REPORT STATUS: Signed EXAM: CT Abdomen and Pelvis WITH contrast INDICATION: Abdominal pain abd pain [id number] COMPARISON: None. TECHNIQUE: Abdomen and pelvis were scanned utilizing a multidetector helical scanner from the lung base to the pubic symphysis after administration of IV contrast. Coronal and sagittal reformations were obtained. Routine protocol was performed. Scan was performed when during portal venous phase. Dose modulation, iterative reconstruction, and/or weight based adjustment of the mA/kV was utilized to reduce the radiation dose to as low as reasonably achievable. IV CONTRAST: 100 mL of Isovue-370 ORAL CONTRAST: None RADIATION DOSE: Total DLP: 335.10 mGy*cm Estimated effective dose: (DLP x 0.015 x size factor) mSv COMPLICATIONS: None FINDINGS: LINES and TUBES: There is a suprapubic catheter extending into the urinary bladder. LOWER THORAX: Lung bases are clear. There is mild atelectasis at the right lung base with elevation of the diaphragm. There is pleural thickening with pleural calcifications at the right lung base. HEPATOBILIARY: No focal hepatic lesions. No biliary ductal dilation. GALLBLADDER: No radio-opaque stones or sludge. No wall thickening. SPLEEN: No splenomegaly. PANCREAS: No focal masses or ductal dilatation. ADRENALS: No adrenal nodules KIDNEYS/URETERS: Kidneys enhance symmetrically. No hydronephrosis. There is a 4.2 cm well-defined low-density exophytic mass at the lower pole left kidney. Density measures slightly greater than simple cyst but likely accentuated by artifact from adjacent orthopedic hardware. This likely represents a large simple cyst. An additional low density mass, likely cyst is also present in the posterior upper pole of left kidney. No stones. GI TRACT: No abnormal distention, wall thickening, or evidence of bowel obstruction. There is a large volume of retained stool throughout the colon suggesting constipation. The appendix is not visualized. The stomach is markedly distended with fluid. No other bowel dilatation. PELVIC ORGANS/BLADDER: Urinary bladder is decompressed with the suprapubic tube. No d iscrete abnormal mass or fluid collection in the pelvis. LYMPH NODES: No dominant abdominal, retroperitoneal or pelvic lymph node mass is seen. VESSELS: There is extensive atherosclerotic calcification and mural thrombus of the aortoiliac vessels with no abdominal aortic aneurysm. In the upper abdominal aorta there is a focus of deep mural ulceration or localized dissection (series 2, image 15). IVC appears unremarkable. The portal system is patent. Celiac, SMA and ANAYA are patent although ostia are likely stenotic with calcified plaque. PERITONEUM / RETROPERITONEUM: No pneumoperitoneum or ascites. BONES: No acute or suspicious bony lesions. There is lumbar spine hardware extending from L4 through S1. Wire sternotomy sutures are present. Degenerative changes are seen elsewhere in the lumbar spine. There is mild anterior compression of the L1 vertebral body with sclerosis. SOFT TISSUES: Superficial surrounding soft tissues unremarkable. IMP RESSION: 1. The stomach and proximal duodenum are distended with fluid. There is extensive stool throughout the colon suggesting constipation. 2. Extensive atherosclerotic calcification of the abdominal aorta. There is no aneurysm. There is a focus of deep ulceration or localized dissection in the upper abdominal aorta. Celiac artery and SMA are patent but likely stenotic at their origins. 3. Trace right pleural effusion with pleural thickening and calcification at the right base. This may relate to previous as best this exposure. 4. There is a suprapubic tube which extends into the urinary bladder. 5. Mild anterior compression of the L1 vertebral body with sclerosis. Additional degenerative change with lumbar hardware and sclerotic vertebral bodies also present. Findings at L1 are unchanged from CT chest on 09/24/2019. Staff: Bang Signed by: Dr. Virgilio Cuenca M.D. on 10/09/2019 6:49 PM Dictated By: VIRGILIO CUENCA MD 48 Transcribed By: CLARA on 10/09/191848 COPY TO: YOVANA HONG CHEST SINGLE (PORTABLE) 2019-10-09 15:46:00 [place] [address] Patient Name: MARLEN NOLAND MR #: [id number] : 1945 Age/Sex: 74/M Req #: [id number] Adm Physician: Ordered by: YOVANA HONG MD, MD Report #: [id number] Location: ER Room/Bed: Procedure: [id number] DX/CHEST SINGLE (PORTABLE) Exam Date: 10/09/19 Exam Time: 1517 REPORT STATUS: Signed EXAM: CHEST SINGLE (PORTABLE) DATE: 10/09/2019 3:17 PM INDICATION: Altered mental status COMPARISON: 09/28/2019 FINDINGS: The patient is mildly rotated limiting evaluation. There are postsurgical changes prior median sternotomy. Right- sided PICC line is no longer present. There is elevation of the right hemidiaphragm with associated right lower lung zone opacities which are appears slightly more prominent from the prior examination. The remainder the lungs are otherwise clear without evidence for large focal consolidation, pneumothorax, or significant pleural effusion. The cardiomediastinal silhouette is stable in appearance. No acute osseous abnormalities identified. IMPRESSION: Elevation of the right hemidiaphragm and right lower lung zone opacities suggestive of atelectasis. Small effusion and/or underlying airspace process cannot entirely be excluded. No other acute cardiopulmonary process or significant interval change identified from 09/28/2019. Signed by: Dr. Houston Romero MD on 10/09/2019 3:50 PM Dictated By: HOUSTON ROMERO MD 1973 Transcribed By: CLARA on 10/09/19 1550 COPY TO: YOVANA HONG Capillary blood glucose measurement by glucometer (mas s/volume) 2019-10-02 10:51:00 Test Item Bedside Glucose (test code = 16747-5) 111 70-120 Meter ID: [id number] leukocytes automated count (number/volume)2019-10-01 06:50:00* Test Item Value Reference Range Interpretation Comments White Blood Count (test code = 6690-2) 6.45 4.8-10.8 [facility] erythrocytes automated count (number/volume)2019-10-01 06:50:00* Test Item Value Reference Range Interpretation Comments Red Blood Count (test code = 789-8) 3.72 4.3-5.7 [facility] (moles/volume)2019-10-01 06:50:00* Test Item Value Reference Range Interpretation Comments Hemoglobin (test code = 63189-8) 10.6 14.0-18.0 [facility] hematocrit (volume fraction)2019-10-01 06:50:00* Test Item Value Reference Range Interpretation Comments Hematocrit (test code = 4544-3) 34.2 38.2-49.6 [facility] erythrocyte mean corpuscular edeiwp1561-45-54 06:50:00* Test Item Value Reference Range Interpretation Comments Mean Corpuscular Volume (test code = 787-2) 91.9 81-99 [facility] mean corpuscular hemoglobin (mass per erythrocyte)2019-10-01 06:50:00* Test Item Value Reference Range Interpretation Comments Mean Corpuscular Hemoglobin (test code = 785-6) 28.5 28-32 [facility] erythrocyte mean corpuscular hemoglobin concentration measurement (mass/volume)2019-10-01 06:50:00* Test Item Value Reference Range Interpretation Comments Mean Corpuscular Hemoglobin Concent (test code = 786-4) 31.0 31-35 [facility] CenterRDW HzwTa-Kpi7423-54-31 06:50:00* Test Item Value Reference Range Interpretation Comments Red Cell Distribution Width (test code = 25714-0) 14.6 11.7 -14.4 [facility] platelet count (count/volume)2019-10-01 06:50:00* Test Item Value Reference Range Interpretation Comments Platelet Count (test code = 777-3) 134 140-360 [facility] blood segmented neutrophil count as percentage of total rkhtpmkedl9738-23-89 06:50:00* Test Item Value Reference Range Interpretation Comments Neutrophils (%) (Auto) (test code = 15766-9) 53.8 38.7-80.0 [facility] blood lymphocyte count as percentage ot total cuchwqvxtm4328-25-81 06:50:00* Test Item Value Reference Range Interpretation Comments Lymphocytes (%) (Auto) (test code = 736-9) 34.0 18.0-39.1 [facility] blood monocyte count as percentage of total boplcikbme8294-61-34 06:50:00* Test Item Value Reference Range Interpretation Comments Monocytes (%) (Auto) (test code = 5905-5) 8.4 4.4-11.3 [facility]Aut[facility] blood eosinophil count as percentage of total dysdshlbzx3559-99-35 06:50:00* Test Item Value Reference Range Interpretation Comments Eosinophils (%) (Auto) (test code = 713-8) 2.9 0.0-6.0 [facility] blood basophil count as percentage of total tatljjtngi9608-37-37 06:50:00* Test Item Value Reference Range Interpretation Comments Basophils (%) (Auto) (test code = 706-2) 0.6 0.0-1.0 [facility] CenterFluoroscopic procedure less than one hour swwifsyd7393-12-12 06:50:00* Test Item Value Reference Range Interpretation Comments IM GRANULOCYTES % (test code = IM GRANULOCYTES %) 0.3 0.0- 1.0 [facility] Center[facility] blood neutrophil count 2019-10-01 06:50:00* Test Item Value Reference Range Interpretation Comments Neutrophils # (Auto) (test code = 751-8) 3.5 2.1-6.9 [facility] CenterBlood lymphocytes count (number/volume) 2019-10-01 06:50:00* Test Item Value Reference Range Interpretation Comments Lymphocytes # (Auto) (test code = 94116-6) 2.2 1.0-3.2 [facility] CenterBlood monocytes automated count (number/volume)2019-10-01 06:50:00* Test Item Value Reference Range Interpretation Comments Monocytes # (Auto) (test code = 742-7) 0.5 0.2-0.8 [facility] CenterAutom[facility] blood eosinophil count 2019-10-01 06:50:00* Test Item Value Reference Range Interpretation Comments Eosinophils # (Auto) (test code = 711-2) 0.2 0.0-0.4 [facility] CenterAutomated blood basophil count (count/volume)2019-10-01 06:50:00* Test Item Value Reference Range Interpretation Comments Basophils # (Auto) (test code = 704-7) 0.0 0.0-0.1 [facility] CenterFluoroscopic procedure less than one hour oilgbpoy8836-48-67 06:50:00* Test Item Value Reference Range Interpretation Comments Absolute Immature Granulocyte (auto (troy t code = Absolute Immature Granulocyte (auto) 0.02 0-0.1 [facility] or plasma sodium measurement (moles/volume)2019-10-01 06:50:00* Test Item Value Reference Range Interpretation Comments Sodium Level (test code = 2951-2) 137 136-145 [facility] or plasma potassium measurement (moles/volume)2019-10-01 06:50:00* Test Item Value Reference Range Interpretation Comments Potassium Level (test code = 2823-3) 4.9 3.5-5.1 [facility] or plasma chloride measurement (moles/volume)2019-10-01 06:50:00* Test Item Value Reference Range Interpretation Comments Chloride Level (test code = 2075-0) 102 98-107 [facility]orerum or plasma carbon dioxide, total measurement (moles/volume)2019-10-01 06:50:00* Test Item Value Reference Range Interpretation Comments Carbon Dioxide Level (test code = 2028-9) 24 22-29 [facility]rum or plasma anion ewh1123-97-20 06:50:00* Test Item Value Reference Range Interpretation Comments Anion Gap (test code = 08420-3) 15.9 8-16 [facility] or plasma urea nitrogen measurement (mass/volume)2019-10-01 06:50:00* Test Item Value Reference Range Interpretation Comments Blood Urea Nitrogen (test code = 3094-0) 30 7-26 [facility] or plasma creatinine measurement (mass/volume)2019-10-01 06:50:00* Test Item Value Reference Range Interpretation Comments Creatinine (test code = 2160-0) 1.17 0.72-1.25 [facility] or plasma urea nitrogen/creatinine mass hnelw9390-78-04 06:50:00* Test Item Value Reference Range Interpretation Comments BUN/Creatinine Ratio (test code = 3097-3) 26 6-25 [facility] CenterEstimated glomerular filtration rate (GFR) jxknlmvnfuizf3296-99-32 06:50:00* Test Item Value Reference Range Interpretation Comments Estimat Glomerular Filtration Rate (test code = 955598410) > 60 >60 Ranges were taken from the National Kidney Disease Education Program and the [employer] literature.Reference ranges:60 or greater: Sgzsew75-69 ( for 3 consecutive months): Chronic kidney disease 15 or less: Kidney failureSaint Mark's Medical CenterGlucose qlleanrtkel0503-38-52 06:50:00* Test Item Value Reference Range Interpretation Comments Glucose Level (test code = XDO4735) 139 74-118 [facility]orerum or plasma calcium measurement (mass/volume)2019-10-01 06:50:00* Test Item Value Reference Range Interpretation Comments Calcium Level (test code = 57442-5) 8.8 8.4-10.2 [facility] CenterCHEST XRAY LINE RTGVMQWCY4484-70-85 19:23:00 [facility] [address] [place] [address] Patient Name: MARLEN NOLAND MR #: [id number] : 1945 Age/Sex: 74/M Req #: [id number] Adm Physician: MAIKOL ANAND MD Ordered by: WANDA REYNA MD Report #: [id number] Location: [facility]/SURG3 Room/Bed: [facility] Procedure: [id number] DX/CHEST XRAY L INE PLACEMENT Exam Date: 09/28/19 Exam Time: 1904 REPORT STATUS: Signed Examination: Single AP view of the chest. COMPARISON: None. INDICATION: Line place ment DISCUSSION: Lines/tubes: PICC line with tip overlying the S VC. Lungs: The lungs are well inflated and clear. No pneumonia or pulmonar y edema. Pleura: No pleural effusion or pneumothorax. Heart and media stinum: The heart and the mediastinum are unremarkable. Bones and soft tis sues: No acute bony abnormalities. IMPRESSION: 1. PICC line w ith tip overlying the SVC. Signed by: Dr. Art Del Angel M.D. on 09/28/2019 7:24 PM Dictated By: ART DEL ANGEL MD 23 Transcribed By: CLARA on 09/28/191923 COPY TO: WANDA REYNA MD MODIFIED BA. [id number] 10:08:00 [place] [id number] Patient Name: MARLEN NOLAND MR #: [id number] : 1945 Age/Sex: 74/M Req #: [id number] Adm Physician: MAIKOL ANAND MD Ordered by: MAIKOL ANAND MD Report #: [id number] Location: MED/SURG3 Room/Bed: [facility] Procedure: [id number] DX/MODIFIED BA. S WALLOW Exam Date: 09/26/19 Exam Time: 840 REPORT STATUS: Signed Modified Barium Swa llow: Clinical History: Aspiration Comparison: None Fluoro time i n minutes: 2.5 Radiation dose: 10.6 mGy air Kerma. Report: The patie nt ingested barium with a speech pathologist in attendance. Impression: A full report from speech pathology will follow. Signed by: Criss Mauricio MD on 09/26/2019 10:09 AM Dictated By: CRISS MAURICIO MD 100 Transcribed By: CLARA on 09/01 10/20 1009 COPY TO: MAIKOL ANAND MD Serum or plasma total bilirubin measurement (mass/volume)2019-09-25 05:38:00* Test Item Value Reference Range Interpretation Comments Total Bilirubin (test code = 1975-2) 0.3 0.2-1.2 [facility] CenterFluoroscopic procedure less than one hour swvrplpu9523-99-46 05:38:00* Test Item Value Reference Range Interpretation Comments Aspartate Amino Transf (AST/SGOT) (test code = Aspartate Amino Transf (AST/SGOT)) 11 5-34 [facility] or plasma alanine aminotransferase measurement (enzymatic activity/volume)2019-09-25 05:38:00* Test Item Value Reference Range Interpretation Comments Alanine Aminotransferase (ALT/SGPT) (test code = 1742-6) 8 0-55 [facility]rum or plasma protein measurement (mass/volume)2019-09-25 05:38:00* Test Item Value Reference Range Interpretation Comments Total Protein (test code = 2885-2) 6.7 6.5-8.1 [facility]rum or plasma albumin measurement (mass/volume)2019-09-25 05:38:00* Test Item Value Reference Range Interpretation Comments Albumin (test code = 1751-7) 3.1 3.5-5.0 [facility] CenterPlasma globulin measurement (mass/volume) 2019-09-25 05:38:00* Test Item Value Reference Range Interpretation Comments Globulin (test code = 79871-8) 3.6 2.3-3.5 [facility] or plasma albumin/globulin mass lkhqw1705-11-99 05:38:00* Test Item Value Reference Range Interpretation Comments Albumin/Globulin Ratio (test code = 1759-0) 0.9 0.8-2.0 [facility] or plasma alkaline phosphatase measurement (enzymatic activity/volume)2019-09-25 05:38:00* Test Item Value Reference Range Interpretation Comments Alkaline Phosphatase (test code = 6768-6) 62 40-150 [facility]rum or plasma creatine kinase measurement (enzymatic activity/volume)2019-09-24 12:09:00* Test Item Value Reference Range Interpretation Comments Creatine Kinase (test code = 2157-6) 160 30-200 [facility]orerum or plasma creatine kinase MB measurement (mass/volume)2019-09-24 12:09:00* Test Item Value Reference Range Interpretation Comments Creatine Kinase MB (test code = 78260-6) 5.10 0-5.0 [facility] CenterTroponin I measurement by highly sensitive enzyme oxccyemwpdp6130-88-66 12:09:00* Test Item Value Reference Range Interpretation Comments Troponin I (test code = 17015-7) 0.072 0-0.300 [facility] CenterCT LUMBAR SPINE [id number] 12:05:00 [facility] [address] [place] [address] Patient Name: MARLEN NOLAND MR #: [id number] : 1945 Age/Sex: 74/M Req #: [id number] [facility] Physician: MAIKOL ANAND MD Ordered by: MAIKOL ANAND MD Report #: [id number] Location: MED/SURG3 Room/Bed: [facility] Procedure: [id number] CT/CT LUMBAR SPIN E WO Exam Date: 09/24/19 Exam Time: 1120 REPORT STATUS: Signed CT LUMBAR SPINE WO HISTORY: Low back pain COMPARISON: Lumbar spine radiograph 03/08/2019 TECHNIQUE: Axial CT images of the lumbar spine were obtained without contr ast. Coronal and sagittal reconstructions obtained from the axial data. One or more of the following dose reduction techniques were used: Automated exposu re control, adjustment of the mA and/or kV according to patient size, and/or u tilization of iterative reconstruction technique. DISCUSSION: Postsurgi kay changes related to posterior fusion from L4 to S1 are noted. Screws are se en along the anterior L5 and S1 vertebral bodies. Hardware streak artifacts ob scure some details. Mild bone demineralization also limits osseous evaluation . There are 5 nonrib-bearing lumbar vertebral bodies. Lumbar lordosis is preserved. There is no significant scoliosis or subluxation. Mild compre ssion fracture of the L1 superior endplate is associated with local sclerosis, Schmorl's node, and vacuum phenomena. There is no significant retropulsion. T his fracture could be chronic. Otherwise, no definite acute fracture or com pression deformity is seen. Posterior incision changes are noted. Ther e is paraspinal muscle atrophy in the lower lumbar spine. Otherwise, the parav ertebral and paraspinal soft tissues are grossly unremarkable. There are severe spondylotic changes at L2-L3 and L3-L4. Mild bilateral sacroiliac degen erative changes are present as well. L1-L2: No gross canal or foraminal josef nosis. L2-L3: At least moderate canal stenosis at L2-L3 due to posterior di sc osteophyte complex and ligamentum flavum thickening. The left lateral reces s is effaced. Mild left foraminal stenosis is due to disc bulge and facet arth rosis. No significant right foraminal stenosis. L3-L4: At least mild scottie l stenosis due to disc bulge and ligamentum flavum thickening. Moderate to sev ere right and mild left foraminal stenoses due to disc bulge and facet arthros is. L4-L5: Left laminotomy and foraminotomy changes are present. No gross c anal or foraminal stenosis. L5-S1: Laminectomy changes. The spinal canal and neural foramina are obscured by streak artifact. Elevation of the rig ht hemidiaphragm is partially imaged. Partially imaged bladder with mild wall thickening and partially imaged catheter. Diffuse atherosclerotic calcificatio ns are present. IMPRESSION: 1. Fusion changes from L4 to S1 with left L 4-L5 laminotomy/foraminotomy and L5-S1 laminectomy. 2. Mild L1 vertebral co mpression fracture may be chronic. No significant retropulsion. This fracture was not present on radiographs dated 03/08/2019. 3. Otherwise, no acute osseou s abnormalities. 4. Severe spondylosis at L2-L3 and L3-L4. 5. At least mod erate L2-L3 and mild L3-L4 degenerative canal stenoses. 6. Severe right L3-L4 degenerative foraminal stenosis. Signed by: Dr. Katya Yodre M.D. on 12:18 PM Dictated By: KATYA YODER MD 1218 Transcribed By: CLARA on 09/24/19 12 18 COPY TO: MAIKOL ANAND MD CT CHEST [id number] 03:27:00 [place] [address] Patient Name: MARLEN NOLAND MR #: [id number] : 1945 Age/Sex: 74/M Req #: [id number] Adm Physician: Ordered by: BURKE CARTER MD Report #: [id number] Location: ER Room/Bed: Procedure: [id number] CT/CT C HEST WO Exam Date: 09/24/19 Exam Time: 0120 REPORT STATUS: Signed EXAM: CT Chest WIT HOUT contrast INDICATION: RECENT MULTIFOCAL PNEUMONIA COMPARISON: CT c hest 09-12-2019, chest radiograph 09-24-2019. TECHNIQUE: Chest was scanned utilizing a multidetector helical scanner from the lung apex through the level of the adrenal glands without administration of IV contrast. Absence of intra venous contrast decreases sensitivity for detection of lymphadenopathy and vas cular pathology. Coronal and sagittal reformations were obtained. Routine prot ocol was performed. IV CONTRAST: None COMPLICATIONS: None RA DIATION DOSE: Total DLP: 605.1 mGy*cm Estimated effective dose: ( DLP x 0.014 x size factor) mSv CTDIvol has been reviewed. It is below the limits set by the Radiation Protocol Committee (RPC). FINDING S: LINES/ TUBES: None. LUNGS, PLEURA, AND AIRWAYS: Scattered bilatera l tree-in-bud opacities as well as focal left lower lobe airspace opacity sonia lar to prior study. No new consolidative pneumonia. Linear opacity in the righ t lower lobe with associated volume loss, likely subsegmental atelectasis or s carring. Right upper lobe scarring with mild traction bronchiectasis. Elevated right hemidiaphragm. Increasing mucous plugging within the right lower lobe medial segmental bronchi. Right lower lobe calcified pleural plaques and small loculated appearing effusion. Bronchial wall thickening with scattered distal mucoid impaction. HEART AND MEDIASTINUM: The thyroid gland is normal . Unchanged mild mediastinal lymphadenopathy, for example a peritracheal lymp h node, measuring up to 1.1 cm. Calcified paratracheal lymph node. No hilar ly mphadenopathy. The heart is normal in size.. There is no pericardial effusion . Severe atherosclerotic calcification of aorta and coronary arteries. Eviden ce of CABG surgery. Diffuse mild esophageal wall thickening. Debris seen withi n the upper esophagus. UPPER ABDOMEN: Limited noncontrast views of the uppe r abdomen. Moderate amount of stool in the colon. BONES: Again seen is L 1 vertebral body increased sclerosis and mild superior endplate compression de formity with fracture line visible along the anterior vertebral body (series 4 00, image 63). Median sternotomy wires. 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 SOFT TISSUES: Small bilateral gynecomastia, left slightly more than right. IMPRESSION: Similar appearance of scattered bilateral tree-in-bud opacities with left lower lobe airspace opacity, compatible with aspiration p neumonia. Debris within the right lower lobe segmental bronchi are increased w ith scattered bronchial mucoid impaction. Debris seen within the esophagus, wh ich likely increases aspiration risk. Mild mediastinal lymphadenopathy, likely reactive. Recommend follow-up chest CT in 3 months. Again noted is a L1 vertebral body increased sclerosis and mild superior endplate compression defo rmity with visible fracture line anteriorly (likely subacute to remote). Recom mend correlation with dedicated lumbar spine CT. Trace loculated appearing right pleural effusion with adjacent pleural thickening and calcified pleural plaques, suggestive of remote asbestos exposure. Signed by: Dr. Bobo Ramirez MD on 09/24/2019 3:42 AM Dictated By: BOBO RAMIREZ MD Electronically S igned By: BOBO RAMIREZ MD on 09/24/19 0342 Transcribed By: CLARA on 09/24/19 03 42 COPY TO: BURKE CARTER MD CT BRAIN [id number] 02:41:00 [place] [address] Patient Name: MARLEN NOLAND MR #: [id number] : 1945 Age/Sex: 74/M Req #: [id number] Adm Physician: Ordered by: BURKE CARTER MD Report #: [id number] Location: ER Room/Bed: Procedure: [id number] CT/CT Mati CASEY Exam Date: 09/24/19 Exam Time: 0120 REPORT STATUS: Signed EXAMINATION: Head CT HISTORY: Unresponsive, alteration of consciousness, lethargic COMPARI SON: Head CT 03/08/2019. TECHNIQUE: Helical axial images of the head were obta ined. Reformatted coronal and sagittal images from the axial data. Dose modul ation, iterative reconstruction, and/or weight based adjustment of the mA/kV w as utilized to reduce the radiation dose to as low as reasonably achievable. Image quality: Motion/streaking artifact limits the evaluation of the skull b ase and posterior cranial fossa. FINDINGS: Parenchyma: 1. Scattered and mildly confluent periventricular white matter hypodensities, mos t likely nonspecific chronic microvascular ischemic changes. Small chronic inf arct in the left subinsular region and anterior limb of the left internal caps ule. 2. No mass or hemorrhage. No CT evidence of acute territorial vascular i nsult. Extra-axial spaces:No abnormal density. No extra-axial f luid collections Brain volume: Normal for age. Ventricles: No hy drocephalus or displacement. Arteries: Calcified atherosclerotic change s in the bilateral vertebral and carotid arteries.. Dural sinuses: No abnormal density. Foramen magnum: No mass, Chiari malformation, or basil ar invagination. Sella: No obvious mass. Paranasal/mastoid sinu ses: Imaged portions unremarkable. Skull/Scalp: No lytic or blastic lesi ons. No fractures. IMPRESSION: 1. No acute intracranial abnormaliti es. 2. Mild chronic microvascular ischemic changes, stable compared to a head CT of 03/08/2019. Signed by: Dr. Ignacio Schaffer M.D. on 09/24/2019 2:44 AM Dictated By: IGNACIO SCHAFFER MD 3 COPY TO: BURKE MCCARTY MD Urine color fnwkuyybylxqw7500-25-29 02:10:00* Test Item Value Reference Range Interpretation Comments Urine Color (test code = 5778-6) YELLOW YELLOW [facility] qhgyrpd2103-75-39 02:10:00* Test Item Value Reference Range Interpretation Comments Urine Clarity (test code = 61183-5) CLOUDY CLEAR [facility] gravity of Urine by Test strip 2019-09-24 02:10:00* Test Item Value Reference Range Interpretation Comments Urine Specific Douds (test code = 5811-5) 1.015 1.010-1.02 5 [facility] pH measurement by automated test zqafb5473-75-51 02:10:00* Test Item Value Reference Range Interpretation Comments Urine pH (test code = 13722-5) 7 5-7 [facility] CenterU[facility] leukocyte esterase detection by jspqlvvj9745-10-68 02:10:00* Test Item Value Reference Range Interpretation Comments Urine Leukocyte Esterase (test code = 5799-2) LARGE NEGATIVE [facility] CenterU[facility] nitrite hdeccloay6888-88-74 02:10:00* Test Item Value Reference Range Interpretation Comments Urine Nitrite (test code = 83818-7) NEGATIVE NEGATIVE [facility] CenterU[facility] protein measurement by test strip (mass/volume)2019-09-24 02:10:00* Test Item Value Reference Range Interpretation Comments Urine Protein (test code = 5804-0) 1+ NEGATIVE [facility] CenterU[facility] glucose hzahqitue6041-90-79 02:10:00* Test Item Value Reference Range Interpretation Comments Urine Glucose (UA) (test code = 2349-9) NEGATIVE NEGATIVE [facility] ketones detection by automated test vmcvq0267-35-97 02:10:00* Test Item Value Reference Range Interpretation Comments Urine Ketones (test code = 91343-1) NEGATIVE NEGATIVE [facility] CenterUrine urobilinogen measurement by test strip (mass/volume)2019-09-24 02:10:00* Test Item Value Reference Range Interpretation Comments Urine Urobilinogen (test code = 80233-1) 0.2 0.2-1 [facility] total bilirubin measurement (mass/volume)2019-09-24 02:10:00* Test Item Value Reference Range Interpretation Comments Urine Bilirubin (test code = 1978-6) NEGATIVE NEGATIVE [facility] Center[facility] erythrocytes idnnyijye5153-07-02 02:10:00* Test Item Value Reference Range Interpretation Comments Urine Blood (test code = 13874-8) SMALL NEGATIVE [facility] CenterAutomated urine sediment leukocyte count by microscopy (number/high power field)2019-09-24 02:10:00* Test Item Value Reference Range Interpretation Comments Urine WBC (test code = 5821-4) 50 0-5 [facility] CenterErythrocytes detection in urine sediment by light txobokyanx5138-17-95 02:10:00* Test Item Value Reference Range Interpretation Comments Urine RBC (test code = 89576-0) -50 0-5 [facility] CenterBacteria detection in urine sediment by light plmhiheuhm6742-43-43 02:10:00* Test Item Value Reference Range Interpretation Comments Urine Bacteria (test code = 80841-3) RARE NONE [facility] CenterEpithelial cells detection in urine sediment by light xmfwfnpxjw5334-51-38 02:10:00* Test Item Value Reference Range Interpretation Comments Urine Epithelial Cells (test code = 22893-8) FEW NONE [facility] CenterBacterial urine yghpfgb5980-78-84 02:10:00* Test Item Value Reference Range Interpretation Comments Urine Culture (test code = 630-4) ESCHERICHIA COLI-ESBL [facility] CenterCHEST SINGLE (PORTABLE)2019-09-24 01:54:00 [place] [address] Patient Name: MARLEN NOLAND MR #: [id number] : 1945 Age/Sex: 74/M Req #: [id number] Adm Physician: Ordered by: BURKE CARTER MD Report #: [id number] Location: ER Room/Bed: Procedure: [id number] DX/CHES T SINGLE (PORTABLE) Exam Date: 09/24/19 Exam Time: 0 030 REPORT STATUS: Signed EXAMIN ATION: CHEST SINGLE (PORTABLE) INDICATION: AMS, SOB, fever. COM PARISON: CT Chest 09/12/2019. FINDINGS: TUBES and LINES: None. LUNGS: Lungs are well inflated. There are patchy and nodular opacities in the right upper and lower lungs. Mild patchy left lower lung opacity. No new c onsolidation. Chain suture in the right upper lung. PLEURA: No pleural ef fusion or pneumothorax. HEART AND MEDIASTINUM: The cardiomediastinal silh ouette is unremarkable. There are atherosclerotic calcifications within the ao rta. BONES AND SOFT TISSUES: No acute osseous abnormality. Status post med marcus sternotomy. UPPER ABDOMEN: No free air under the diaphragm. IMPRESSION: Patchy and nodular opacities in the right lung and patchy left ba silar opacity, likely aspiration pneumonia better characterized on prior CT. R ecommend follow-up chest radiograph in 6-8 weeks. Signed by: Dr. Bobo johnson MD on 09/24/2019 1:57 AM Dictated By: BOBO RAMIREZ MD Electronically Si gned By: BOBO RAMIREZ MD on 09/24/19 0157 Transcribed By: CLARA on 09/24/19 015 7 COPY TO: BURKE CARTER MD Fluoroscopic procedure less than one hour luhjqfie2058-55-53 00:20:00* Test Item Value Reference Range Interpretation Comments Lactic Acid Level (test code = Lactic Acid Level) 1.6 0.5- 2.0 [facility] CenterBNP Fjz-fNcy2614-44-24 00:20:00* Test Item Value Reference Range Interpretation Comments B-Type Natriuretic Peptide (test code = 24466-3) 149.6 0-100 [facility] CenterBlood uzrshnl2051-64-28 00:20:00* Test Item Value Reference Range Interpretation Comments Blood Culture (test code = 83506201) NO GROWTH AFTER 5 DAYS, FINAL REPORT [facility] CenterFluoroscopic procedure less than one hour ldhzisal1165-51-82 00:16:00* Test Item Value Reference Range Interpretation Comments Coronavirus (PCR) (test code = Coronavirus (PCR)) NOT DETECTED NOTD ETECTED SARS-COV2/RT-PCRNegative results do not preclude SARS-CoV-2 infection and should not be used as the sole basis for patient management decisions. Negative results must be combined with clinical observations, patient history, and epidemiologi kay information. A false negative result may occur if a specimen is improperly c ollected, transported or handled.The limit of detection for this assay is 250 co pies/mLThe SARS-CoV-2 test is a rapid, real-time RT-PCR test intended for the qu alitative detection of nucleic acid from SARS-CoV-2 in nasopharyngeal swab speci men collected from individuals suspected of COVID-19 by their healthcare provide r. This test has not been Food and Drug Administration (FDA) cleared or approved and has been authorized by FDA under an Emergency Use Authorization (EUA). This EUA will be effective until the declaration that circumstances exist justifying the authorization of the emergency use of in vitro diagnostic test for detection and or diagnosis of COVID-19 is terminated under section 564(b) of the Act, or the the EUA is revoked under 564(g) of the ACT.Testing performed by [facility] [place] [id number] [facility] CenterCapillary blood glucose measurement by glucometer (mass/volume)2019-09-20 21:21:00* Test Item Value Reference Range Interpretation Comments Bedside Glucose (test code = 99028-2) 78 70-120 Meter ID: [id number] Mark's Medical CenterBlood leukocytes automated count (number/volume)2019-09-20 09:05:00* Test Item Value Reference Range Interpretation Comments White Blood Count (test code = 6690-2) 6.75 4.8-10.8 [facility] CenterBlood erythrocytes automated count (number/volume)2019-09-20 09:05:00* Test Item Value Reference Range Interpretation Comments Red Blood Count (test code = 789-8) 3.59 4.3-5.7 [facility] CenterBlood hemoglobin measurement (moles/volume)2019-09-20 09:05:00* Test Item Value Reference Range Interpretation Comments Hemoglobin (test code = 11760-7) 10.1 14.0-18.0 [facility] CenterAutomated blood hematocrit (volume fraction)2019-09-20 09:05:00* Test Item Value Reference Range Interpretation Comments Hematocrit (test code = 4544-3) 32.8 38.2-49.6 [facility] CenterAutomated erythrocyte mean corpuscular itbiyz3379-54-42 09:05:00* Test Item Value Reference Range Interpretation Comments Mean Corpuscular Volume (test code = 787-2) 91.4 81-99 [facility] CenterAutomated erythrocyte mean corpuscular hemoglobin (mass per erythrocyte)2019-09-20 09:05:00* Test Item Value Reference Range Interpretation Comments Mean Corpuscular Hemoglobin (test code = 785-6) 28.1 28-32 [facility] CenterAutomated erythrocyte mean corpuscular hemoglobin concentration measurement (mass/volume)2019-09-20 09:05:00* Test Item Value Reference Range Interpretation Comments Mean Corpuscular Hemoglobin Concent (test code = 786-4) 30.8 31-35 [facility] CenterRDW XzxBx-Yfv6557-38-20 09:05:00* Test Item Value Reference Range Interpretation Comments Red Cell Distribution Width (test code = 60013-4) 13.9 11.7 -14.4 [facility] CenterAutomated blood platelet count (count/volume)2019-09-20 09:05:00* Test Item Value Reference Range Interpretation Comments Platelet Count (test code = 777-3) 189 140-360 [facility] neutrophil count as percentage of total odxugmurmv8517-60-62 09:05:00* Test Item Value Reference Range Interpretation Comments Neutrophils (%) (Auto) (test code = 67713-2) 62.9 38.7-80.0 [facility] CenterAutomated blood lymphocyte count as percentage ot total uulnncbduz3775-04-74 09:05:00* Test Item Value Reference Range Interpretation Comments Lymphocytes (%) (Auto) (test code = 736-9) 25.6 18.0-39.1 [facility] CenterAutomated blood monocyte count as percentage of total nzibilnlui0474-25-58 09:05:00* Test Item Value Reference Range Interpretation Comments Monocytes (%) (Auto) (test code = 5905-5) 6.4 4.4-11.3 [facility] CenterAutomated blood eosinophil count as percentage of total eeigyzbyys8370-01-27 09:05:00* Test Item Value Reference Range Interpretation Comments Eosinophils (%) (Auto) (test code = 713-8) 4.4 0.0-6.0 [facility]ered blood basophil count as percentage of total hynriiijcg2710-99-62 09:05:00* Test Item Value Reference Range Interpretation Comments Basophils (%) (Auto) (test code = 706-2) 0.4 0.0-1.0 [facility] CenterFluoroscopic procedure less than one hour oqyyfyyl9651-87-22 09:05:00* Test Item Value Reference Range Interpretation Comments IM GRANULOCYTES % (test code = IM GRANULOCYTES %) 0.3 0.0- 1.0 [facility] CenterAutomated blood neutrophil count 2019-09-20 09:05:00* Test Item Value Reference Range Interpretation Comments Neutrophils # (Auto) (test code = 751-8) 4.2 2.1-6.9 [facility] CenterBlood lymphocytes count (number/volume) 2019-09-20 09:05:00* Test Item Value Reference Range Interpretation Comments Lymphocytes # (Auto) (test code = 58582-8) 1.7 1.0-3.2 [facility]Bl[facility] monocytes automated count (number/volume)2019-09-20 09:05:00* Test Item Value Reference Range Interpretation Comments Monocytes # (Auto) (test code = 742-7) 0.4 0.2-0.8 [facility] CenterAutomated blood eosinophil count 2019-09-20 09:05:00* Test Item Value Reference Range Interpretation Comments Eosinophils # (Auto) (test code = 711-2) 0.3 0.0-0.4 [facility] CenterAutomated blood basophil count (count/volume)2019-09-20 09:05:00* Test Item Value Reference Range Interpretation Comments Basophils # (Auto) (test code = 704-7) 0.0 0.0-0.1 [facility] CenterFluoroscopic procedure less than one hour lmjwdqfy9046-22-87 09:05:00* Test Item Value Reference Range Interpretation Comments Absolute Immature Granulocyte (auto (troy t code = Absolute Immature Granulocyte (auto) 0.02 0-0.1 [facility] Taylorerum or plasma sodium measurement (moles/volume)2019-09-20 09:05:00* Test Item Value Reference Range Interpretation Comments Sodium Level (test code = 2951-2) 139 136-145 [facility] Taylorerum or plasma potassium measurement (moles/volume)2019-09-20 09:05:00* Test Item Value Reference Range Interpretation Comments Potassium Level (test code = 2823-3) 4.5 3.5-5.1 [facility] Taylorerum or plasma chloride measurement (moles/volume)2019-09-20 09:05:00* Test Item Value Reference Range Interpretation Comments Chloride Level (test code = 2075-0) 102 98-107 [facility] Taylorerum or plasma carbon dioxide, total measurement (moles/volume)2019-09-20 09:05:00* Test Item Value Reference Range Interpretation Comments Carbon Dioxide Level (test code = 2028-9) 27 22-29 [facility] Taylorerum or plasma anion prx6920-27-36 09:05:00* Test Item Value Reference Range Interpretation Comments Anion Gap (test code = 34480-6) 14.5 8-16 [facility] Taylorerum or plasma urea nitrogen measurement (mass/volume)2019-09-20 09:05:00* Test Item Value Reference Range Interpretation Comments Blood Urea Nitrogen (test code = 3094-0) 14 7-26 [facility] Taylorerum or plasma creatinine measurement (mass/volume)2019-09-20 09:05:00* Test Item Value Reference Range Interpretation Comments Creatinine (test code = 2160-0) 0.85 0.72-1.25 [facility] Taylorerum or plasma urea nitrogen/creatinine mass jvisa0909-69-45 09:05:00* Test Item Value Reference Range Interpretation Comments BUN/Creatinine Ratio (test code = 3097-3) 16 6-25 [facility] CenterEstimated glomerular filtration rate (GFR) fsmlnlzikluoo2465-92-48 09:05:00* Test Item Value Reference Range Interpretation Comments Estimat Glomerular Filtration Rate (test code = 410900176) > 60 >60 Ranges were taken from the National Kidney Disease Education Program and the [facility] [employer] literature.Reference ranges:60 or greater: Vnojwv19-50 ( for 3 consecutive months): Chronic kidney disease 15 or less: Kidney failureSaint Mark's Medical CenterGlucose bgaierwjakx3645-07-64 09:05:00* Test Item Value Reference Range Interpretation Comments Glucose Level (test code = KDD7552) 130 74-118 [facility] Taylorerum or plasma calcium measurement (mass/volume)2019-09-20 09:05:00* Test Item Value Reference Range Interpretation Comments Calcium Level (test code = 11114-1) 9.0 8.4-10.2 [facility] CenterPhosphorus enbopmjyuis3328-41-51 06:19:00 * Test Item Value Reference Range Interpretation Comments Phosphorus Level (test code = LME5496) 4.3 2.3-4.7 [facility] Taylorerum or plasma magnesium measurement (mass/volume)2019-09-18 06:19:00* Test Item Value Reference Range Interpretation Comments Magnesium Level (test code = 90147-4) 1.7 1.3-2.1 [facility] CenterPhosphorus thxgmchrpbu8956-21-37 06:19:00 * Test Item Value Reference Range Interpretation Comments Phosphorus Level (test code = FKL9866) 4.3 2.3-4.7 [facility] Taylorerum or plasma magnesium measurement (mass/volume)2019-09-18 06:19:00* Test Item Value Reference Range Interpretation Comments Magnesium Level (test code = 09864-3) 1.7 1.3-2.1 [facility]:00 [facility] [address] [place] [address] Patient Name: MARLEN NOLAND MR #: [id number] : 1945 Age/Sex: 74/M Req #: [id number] Adm Physician: MAIKOL ANAND MD Ordered by: SUKI ANAND DO Report #: [id number] Location: [facility] Room/Bed: [place] [address] Procedure: [id number] CT/CT CHEST WO Exam Date: 09/12/19 Exam Time: 2027 REPORT STATUS: Signed I have reviewed the below preliminary report provided by Dr. Mcfarlane and agree with the described findin gs. EXAM: CT Chest WITHOUT contrast INDICATION: Cough COMP ARISON: Chest x-ray dated 03/08/2019 TECHNIQUE: Chest was scanned utilACSIANin g a multidetector helical scanner from the lung apex through the level of the adrenal glands without administration of IV contrast. Absence of intravenous c ontrast decreases sensitivity for detection of lymphadenopathy and vascular pa thology. Coronal and sagittal reformations were obtained. Routine protocol was performed. IV CONTRAST: None COMPLICATIONS: None RADIATION DOSE: Total DLP: 517.3 mGy*cm Estimated effective dose: (DLP x 0. 014 x size factor) mSv CTDIvol has been reviewed. It is below the limits set by the Radiation Protocol Committee (RPC). FINDINGS: LINES/ TUBES: None. LUNGS, PLEURA, AND AIRWAYS: Scattered bilateral tree-i n-bud opacities as well as focal left lower lobe airspace opacity (series 3, i mage 98). Right upper lobe scarring with mild traction bronchiectasis. Elevate d right hemidiaphragm. Right basilar scarring. Airways are normal. Right lower lobe calcified pleural plaques and small loculated appearing effusion. Mucous plugging is seen within right lower lobe segmental bronchus (series 3, image 64). HEART AND MEDIASTINUM: The thyroid gland is normal. Mediastinal lymphadenopathy. No hilar lymphadenopathy. The heart is normal in size.. The re is no pericardial effusion. Severe atherosclerotic calcification of aorta and coronary arteries. Evidence of CABG surgery. UPPER ABDOMEN: Unremarka ble. BONES: Partially seen L1 vertebral body increased sclerosis and mild s uperior endplate compression deformity. Median sternotomy wires. SOFT TIS SUES: Small bilateral gynecomastia, left slightly more than right. IMPRESSI ON: 1. Scattered bilateral tree-in-bud opacities, suggestive of infectious/ inflammatory process. There is also small focal left lower lobe airspace opaci ty, concerning for developing pneumonia. 2. Mediastinal lymphadenopathy, like ly reactive. 3. Partially seen L1 vertebral body increased sclerosis and mild superior endplate compression deformity. Recommend correlation with dedicated lumbar spine CT 4. Trace loculated appearing right pleural effusion with a djacent pleural thickening and calcified pleural plaques. Signed by: Paul Aguilar MD on 09/13/2019 11:13 AM Dictated By: YOLANDA AGUILAR MD [facility] Signed By: YOLANDA AGUILAR MD on 09/13/19 1113 Transcribed By: CLARA on 08/31 07/20 1113 COPY TO: SUKI ANAND DO Fluoroscopic procedure less than one hour czhuwulc7845-99-58 09:40:00* Test Item Value Reference Range Interpretation Comments Venous Blood pH (test code = Venous Blood pH) 7.456 7.35-7.3 8 [facility] CenterFluoroscopic procedure less than one hour cucjajrp7635-07-10 09:40:00* Test Item Value Reference Range Interpretation Comments Venous Blood Partial Pressure CO2 (test code = Venous Blood Partial Pressure CO2) 39 44-48 [facility] CenterFluoroscopic procedure less than one hour mijrbagg1623-53-19 09:40:00* Test Item Value Reference Range Interpretation Comments Venous Blood HCO3 (test code = Venous Blood HCO3) 27.5 21-2 2 [facility] CenterFluoroscopic procedure less than one hour zewuifhy3121-58-45 09:40:00* Test Item Value Reference Range Interpretation Comments Venous Blood Total Carbon Dioxide (test code = Venous Blood Total Carbon Dioxide) 29 [facility] CenterFluoroscopic procedure less than one hour okrrtjhl7263-67-20 09:40:00* Test Item Value Reference Range Interpretation Comments Venous Blood Base Excess (test code = Venous Blood Base Excess) 4 [facility] CenterFluoroscopic procedure less than one hour prdfqbqs5264-05-58 09:40:00* Test Item Value Reference Range Interpretation Comments FiO2 (test code = FiO2) 21 [facility] CenterFluoroscopic procedure less than one hour kjhuakmj7565-76-69 09:40:00* Test Item Value Reference Range Interpretation Comments Venous Blood pH (test code = Venous Blood pH) 7.456 7.35-7.3 8 [facility] CenterFluoroscopic procedure less than one hour cbrkxblk8087-55-04 09:40:00* Test Item Value Reference Range Interpretation Comments Venous Blood Partial Pressure CO2 (test code = Venous Blood Partial Pressure CO2) 39 44-48 [facility] CenterFluoroscopic procedure less than one hour bfidlqgs3902-27-88 09:40:00* Test Item Value Reference Range Interpretation Comments Venous Blood HCO3 (test code = Venous Blood HCO3) 27.5 21-2 2 [facility] CenterFluoroscopic procedure less than one hour jebbhqow1164-92-68 09:40:00* Test Item Value Reference Range Interpretation Comments Venous Blood Total Carbon Dioxide (test code = Venous Blood Total Carbon Dioxide) 29 [facility] CenterFluoroscopic procedure less than one hour blebfkcw8950-42-51 09:40:00* Test Item Value Reference Range Interpretation Comments Venous Blood Base Excess (test code = Venous Blood Base Excess) 4 [facility] CenterFluoroscopic procedure less than one hour uaqwflmi7422-63-78 09:40:00* Test Item Value Reference Range Interpretation Comments FiO2 (test code = FiO2) 21 [facility] or plasma total bilirubin measurement (mass/volume)2019-09-13 07:25:00* Test Item Value Reference Range Interpretation Comments Total Bilirubin (test code = 1975-2) 0.4 0.2-1.2 [facility] CenterFluoroscopic procedure less than one hour azoehnem1101-28-18 07:25:00* Test Item Value Reference Range Interpretation Comments Aspartate Amino Transf (AST/SGOT) (test code = Aspartate Amino Transf (AST/SGOT)) 18 5-34 [facility] Taylorerum or plasma alanine aminotransferase measurement (enzymatic activity/volume)2019-09-13 07:25:00* Test Item Value Reference Range Interpretation Comments Alanine Aminotransferase (ALT/SGPT) (test code = 1742-6) 14 0-55 [facility] Taylorerum or plasma protein measurement (mass/volume)2019-09-13 07:25:00* Test Item Value Reference Range Interpretation Comments Total Protein (test code = 2885-2) 7.5 6.5-8.1 [facility]rum or plasma albumin measurement (mass/volume)2019-09-13 07:25:00* Test Item Value Reference Range Interpretation Comments Albumin (test code = 1751-7) 3.3 3.5-5.0 [facility] CenterPlasma globulin measurement (mass/volume) 2019-09-13 07:25:00* Test Item Value Reference Range Interpretation Comments Globulin (test code = 45460-6) 4.2 2.3-3.5 [facility]orerum or plasma albumin/globulin mass dqjdd6621-15-73 07:25:00* Test Item Value Reference Range Interpretation Comments Albumin/Globulin Ratio (test code = 1759-0) 0.8 0.8-2.0 [facility] Tay[facility]orerum or plasma alkaline phosphatase measurement (enzymatic activity/volume)2019-09-13 07:25:00* Test Item Value Reference Range Interpretation Comments Alkaline Phosphatase (test code = 6768-6) 87 40-150 [facility] Taylorerum or plasma creatine kinase measurement (enzymatic activity/volume)2019-09-13 07:25:00* Test Item Value Reference Range Interpretation Comments Creatine Kinase (test code = 2157-6) 57 30-200 [facility] Taylorerum or plasma creatine kinase MB measurement (mass/volume)2019-09-13 07:25:00* Test Item Value Reference Range Interpretation Comments Creatine Kinase MB (test code = 63546-0) 3.20 0-5.0 [facility] CenterTroponin I measurement by highly sensitive enzyme xbqchvkqiyb9480-46-48 07:25:00* Test Item Value Reference Range Interpretation Comments Troponin I (test code = 98266-9) 0.023 0-0.300 [facility] CenterUrine color pvfezeybrrlid0260-81-26 23:10:00* Test Item Value Reference Range Interpretation Comments Urine Color (test code = 5778-6) YELLOW YELLOW [facility] [id number] 23:10:00* Test Item Value Reference Range Interpretation Comments Urine Clarity (test code = 72589-2) CLOUDY CLEAR [facility] gravity [facility] Urine by Test strip 2019-09-12 23:10:00* Test Item Value Reference Range Interpretation Comments Urine Specific Douds (test code = 5811-5) 1.020 1.010-1.02 5 [facility] pH measurement by automated test [id number] 23:10:00* Test Item Value Reference Range Interpretation Comments Urine pH (test code = 13909-9) 7 5-7 [facility] leukocyte esterase detection by ttxmjldd4418-61-08 23:10:00* Test Item Value Reference Range Interpretation Comments Urine Leukocyte Esterase (test code = 5799-2) 1+ NEGATIVE [facility] nitrite qulsdxkfr4332-96-29 23:10:00* Test Item Value Reference Range Interpretation Comments Urine Nitrite (test code = 66278-4) POSITIVE NEGATIVE [facility] protein measurement by test strip (mass/volume)2019-09-12 23:10:00* Test Item Value Reference Range Interpretation Comments Urine Protein (test code = 5804-0) 2+ NEGATIVE [facility] glucose ydtkbcvog6394-88-53 23:10:00* Test Item Value Reference Range Interpretation Comments Urine Glucose (UA) (test code = 2349-9) NEGATIVE NEGATIVE [facility] ketones detection by automated test imyys0545-21-35 23:10:00* Test Item Value Reference Range Interpretation Comments Urine Ketones (test code = 62636-0) NEGATIVE NEGATIVE [facility] urobilinogen measurement by test strip (mass/volume)2019-09-12 23:10:00* Test Item Value Reference Range Interpretation Comments Urine Urobilinogen (test code = 53458-2) 0.2 0.2-1 [facility] total bilirubin measurement (mass/volume)2019-09-12 23:10:00* Test Item Value Reference Range Interpretation Comments Urine Bilirubin (test code = 1978-6) NEGATIVE NEGATIVE [facility] erythrocytes qelcxoyqp2054-28-07 23:10:00* Test Item Value Reference Range Interpretation Comments Urine Blood (test code = 68485-1) TRACE NEGATIVE [facility] CenterAutomated urine sediment leukocyte count by microscopy (number/high power field)2019-09-12 23:10:00* Test Item Value Reference Range Interpretation Comments Urine WBC (test code = 5821-4) >50 0-5 [facility] CenterErythrocytes detection in urine sediment by light yvjvkvkgkk2832-39-88 23:10:00* Test Item Value Reference Range Interpretation Comments Urine RBC (test code = 60683-9) 0-5 0-5 [facility] CenterBacteria detection in urine sediment by light loveiesnfh4419-23-16 23:10:00* Test Item Value Reference Range Interpretation Comments Urine Bacteria (test code = 01431-7) MODERATE NONE [facility] CenterEpithelial cells detection in urine sediment by light bivoeihbyl7120-57-33 23:10:00* Test Item Value Reference Range Interpretation Comments Urine Epithelial Cells (test code = 09113-3) FEW NONE [facility] CenterFluoroscopic procedure less than one hour uvgcskgs4909-25-50 19:20:00* Test Item Value Reference Range Interpretation Comments Coronavirus (PCR) (test code = Coronavirus (PCR)) NOT DETECTED NOTD ETECTED SARS-COV2/RT-PCRNegative results do not preclude SARS-CoV-2 infection and should not be used as the sole basis for patient management decisions. Negative results must be combined with clinical observations, patient history, and epidemiologi kay information. A false negative result may occur if a specimen is improperly c ollected, transported or handled.The limit of detection for this assay is 250 co pies/mLThe SARS-CoV-2 test is a rapid, real-time RT-PCR test intended for the qu alitative detection of nucleic acid from SARS-CoV-2 in nasopharyngeal swab speci men collected from individuals suspected of COVID-19 by their healthcare provide r. This test has not been Food and Drug Administration (FDA) cleared or approved and has been authorized by FDA under an Emergency Use Authorization (EUA). This EUA will be effective until the declaration that circumstances exist justifying the authorization of the emergency use of in vitro diagnostic test for detection and or diagnosis of COVID-19 is terminated under section 564(b) of the Act, or the the EUA is revoked under 564(g) of the ACT.Testing performed by [facility] [place], [place] [address]DPYS[facility] CenterFluoroscopic procedure less than one hour duration 2019-09-12 18:54:00* Test Item Value Reference Range Interpretation Comments Lactic Acid Level (test code = Lactic Acid Level) 1.3 0.5- 2.0 [facility] CenterBNP Ddi-vJlf0828-54-12 18:15:00* Test Item Value Reference Range Interpretation Comments B-Type Natriuretic Peptide (test code = 15964-4) 259.0 0-100 [facility] CenterBlood wmpvemb7284-03-15 18:15:00* Test Item Value Reference Range Interpretation Comments Blood Culture (test code = 49002680) NO GROWTH AFTER 5 DAYS, FINAL REPORT [facility] CenterECG [id number] 11:42:30* Test Item Value Reference Range Interpretation Comments Ventricular rate (test code = 253) 88 Atrial rate (test code = 255) 88 SC interval (test code = 266) 174 QRSD [...] ^^^-Abnormal ECG-In automated comparison with ECG of AY-2018 22:27,-premature ventricular complexes are now present-T wave inversion now evident in Anterior leads- [facility]ennialBasi metabolic elgxq9388-20-38 09:15:18* Test Item Value Reference Range Interpretation Comments Sodium (test code = 2951-2) 141 135- 150 mEq/L Potassium (test code = 2823-3) 3.8 3.5- 5.0 mEq/L Chloride (test code = 5-0) 105 98- 112 mEq/L CO2 (test code = 2027-9) 24 mmol/L 24-31 Anion gap (test code = 33531-8) 12@ANIO 7- 15 mEq/L BUN (test code = 3094-0) 12 mg/dL 7-18 Creatinine (test code = 2160-0) 0.80 mg/dL 0.7-1.2 Glucose (test code = 2345-7) 108 mg/dL 65-100 H Calcium (test code = 63820-4) 9.2 mg/dL 8.8-10.2 Lab Interpretation (test code = 70984-4) [facility]normal [facility]istMagn[facility] zepbr7024-66-13 09:15:18* Test Item Value Reference Range Interpretation Comments Magnesium (test code = 54763-2) 1.60 mg/dL 1.6-2.4 [facility] MethodistEstimated TQS0713-62-15 09:15:17* Test Item Value Reference Range Interpretation Comments Estimated GFR (test code = 5488) 88 mL/min/1.73 m2 Catergory Units InterpretationG1 >=90 Normal or highG2 60-89 Mildly vgwkzrefcJ9z 45-59 Mildly to moderately snhrgcikyS0n 30-44 Moderately to severely decreasedG4 15-29 Severely decreasedG5 <15 Kidney failureThe eGFR was calculated using the Chronic Kidney Disease Epidemiology Collaboration (CKD-EPI) equation. Interpretation is based on recommendations of the National Kidney Foundation-Kidney Disease Outcomes Quality Initiative (NKF-KDOQI) published in 2014. [facility] hrjxaxm4368-60-09 06:37:52* Test Item Value Reference Range Interpretation Comments POC glucose (test code = 63709-1) 95 mg/dL 65-100 Classified Advertising Clerk Name: Saima Goff ID: [id number] [facility] EnilhjdytNomurnaa0649-67-30 07:39:01* Test Item Value Reference Range Interpretation Comments Troponin (test code = 58849-2) 0.006 ng/mL 0-0.04 In patients suspected of [...] OR decreased by less than 0.020 ng/mL [facility] MethodistLactic acid level, SEPSIS - Now and repeat 2x every 3 hours 2019-07-10 07:14:33* Test Item Value Reference Range Interpretation Comments Lactic acid (test code = 63948-7) 0.8 mmol/L 0.5-2.2 [facility] MethodistUrinalysis screen and microscopy, with reflex to culture 2019-07-10 03:12:40* Test Item Value Reference Range Interpretation Comments Specimen site (test code = 8401740) Clean catch Color, UA (test code = 5778-6) Yellow Appearance, UA (test code = 5767-9) Cloudy Specific gravity, UA (test code = 5811-5) 1.010 1.001-1.035 pH, UA (test code = 5803-2) 5.0 5.0-8.5 Protein, UA (test code = 49351-2) Negative Negative Glucose, UA (test code = 90164-0) Negative Negative Ketones, UA (test code = 2514-8) Negative Negative Bilirubin, UA (test code = 5770-3) Negative Negative Blood, UA (test code = 5794-3) Small Negative A Nitrite, UA (test code = 5802-4) Negative Negative Urobilinogen, UA (test code = 07134-7) Negative <2.0 Leukocyte esterase, UA (test code = 5799-2) Large Negative A WBC, UA (test code = 5821-4) 91 0- 1 /HPF H RBC, UA (test code = 77969-1) 5 0- 5 /HPF A Bacteria, UA (test code = 10856-4) Trace None seen Yeast, UA (test code = 74513-9) None seen Yeast with pseudohyphae, UA (test code = 90927-6) None seen Lab Interpretation (test code = 14860-2) Abnormal [facility] with platelet and roaxftpnetgd5293-18-05 02:06:27* Test Item Value Reference Range Interpretation Comments WBC (test code = 30887-9) 8.4 4.2- 11.0 k/uL RBC (test code = 49663-8) 3.88 m/uL 4.04-5.86 L HGB (test code = 718-7) 11.4 g/dL 13-17.3 L HCT (test code = 4544-3) 34.8 % 34-45 MCV (test code = 787-2) 89.7 fL 80-98 MCH (test code = 785-6) 29.4 pg 27-34 MCHC (test code = 786-4) 32.8 g/dL 31.5-36.5 RDW - SD (test code = 25769-8) 45.9 fL 37-51 MPV (test code = 43886-4) 9.4 fL 7.4-10.4 Platelet count (test code = 33912-4) 252 150- 400 k/uL Nucleated RBC (test code = 70431-7) 0.00 /100 WBC Neutrophils (test code = 63088-2) 70.2 % 36-66 H Lymphocytes (test code = 37813-3) 17.9 % 24-44 L Monocytes (test code = 50323-3) 7.8 % 0-6 H Eosinophils (test code = 23617-8) 3.5 % 0-6 Basophils (test code = 57711-4) 0.5 % 0-1.2 Immature granulocytes (test code = 98328-9) 0.1 % 0-1 Lab Interpretation (test code = 97360-3) Abnormal [facility] MethodistCT Abdomen Pelvis Wo Msrqyxfw9249-14-94 01:46:21Hm Interface, Radiology Results 07/10/2019 1:49 AM CDTCT [...] point tenderness is advised to exclude recent injury.[facility]-MO95QGWRAitzzka MethodistB natriuretic npomgyh7966-50-16 01:44:30* Test Item Value Reference Range Interpretation Comments BNP (test code = 31817-5) 78 pg/mL 0-100 [facility] MethodistComprehensive metabolic pyrhx1019-43-50 01:37:10* Test Item Value Reference Range Interpretation Comments Sodium (test code = 2951-2) 133 135- 150 mEq/L L Potassium (test code = 2823-3) 4.1 3.5- 5.0 mEq/L Chloride (test code = 2075-0) 97 98- 112 mEq/L L CO2 (test code = 8-9) 24 mmol/L 24-31 Anion gap (test code = 51595-6) 12@ANIO 7- 15 mEq/L BUN (test code = 3094-0) 14 mg/dL 7-18 Creatinine (test code = 2160-0) 0.90 mg/dL 0.7-1.2 Glucose (test code = 2345-7) 138 mg/dL 65-100 H Calcium (test code = 79805-5) 8.9 mg/dL 8.8-10.2 Protein (test code = [...] <0.3 0.2-1.2 Lab Interpretation (test code = 00916-4) Abnormal [facility] MethodistLipase hdamr7693-23-67 01:37:10* Test Item Value Reference Range Interpretation Comments Lipase (test code = 3040-3) 16 U/L 13-60 [facility] MethodistCOAGULATION TIME HVLILWQDB4637-43-11 15:21:00* Test Item Value Reference Range Interpretation Comments COAGULATION TIME ACTIVATED (test code = ACT) 234 seconds 62.8-88.0 H [id number] 16:52:00* Test Item Value Reference Range Interpretation Comments GLUBED (test code = GLUBED) 116 mg/dL 74-106 H Performed by certified renovator machine operator at [facility] TTRWHS2166-29-08 06:21:00* Test Item Value Reference Range Interpretation Comments GLUBED (test code = GLUBED) 171 mg/dL 74-106 H Performed by certified renovator machine operator at [facility] VOLIWS2498-69-12 20:58:00* Test Item Value Reference Range Interpretation Comments GLUBED (test code = GLUBED) 158 mg/dL 74-106 H Performed by certified renovator machine operator at [facility] GPAMQP6044-28-17 17:31:00* Test Item Value Reference Range Interpretation Comments GLUBED (test code = GLUBED) 146 mg/dL 74-106 H Performed by certified renovator machine operator at [facility] BGCGKJ9536-82-20 12:39:00* Test Item Value Reference Range Interpretation Comments GLUBED (test code = GLUBED) 299 mg/dL 74-106 H Performed by certified renovator machine operator at [facility] COMPREHENSIVE METABOLIC [id number] 07:01:00* Test Item Value Reference Range Interpretation [...] due to change in reagent. COMPREHENSIVE METABOLIC [id number] 06:46:00* Test Item Value Reference Range Interpretation [...] TOTAL (test code = ALKP) IUnit/L 45-117 UHULCQ4838-29-51 06:32:00* Test Item Value Reference Range Interpretation Comments GLUBED (test code = GLUBED) 136 mg/dL 74-106 H Performed by certified renovator machine operator at [facility] CBC W/AUTO [id number] 06:25:00* Test Item Value Reference Range Interpretation [...] code = NRBC#) 0.00 K/mm3 0.0-0.1 N [id number] 20:37:00* Test Item Value Reference Range Interpretation Comments GLUBED (test code = GLUBED) 156 mg/dL 74-106 H Performed by certified renovator machine operator at [facility] [id number] 17:45:00* Test Item Value Reference Range Interpretation Comments GLUBED (test code = GLUBED) 118 mg/dL 74-106 H Performed by certified renovator machine operator at [facility] THROMBOPLASTIN TIME [id number] 13:10:00* Test Item Value Reference Range Interpretation Comments THROMBOPLASTIN TIME PARTIAL (test code = PTT) 66.6 seconds 25.0-36. 5 H IS PATIENT ON ANTICOAGULANTS? YLIST ANTICOAGULANTS [id number] 12:40:00* Test Item Value Reference Range Interpretation Comments GLUBED (test code = GLUBED) 107 mg/dL 74-106 H Performed by certified renovator machine operator at [facility] [id number] 06:20:00* Test Item Value Reference Range Interpretation Comments GLUBED (test code = GLUBED) 123 mg/dL 74-106 H Performed by certified renovator machine operator at [facility] THROMBOPLASTIN TIME [id number] 05:29:00* Test Item Value Reference Range Interpretation Comments THROMBOPLASTIN TIME PARTIAL (test code = PTT) 123.9 seconds 25.0-36 .5 HH Results called to [id number] by [email or web address] 06/22/19 0527Critical results verified and read back by Nurse? Y CBC W/AUTO [id number] 03:36:00* Test Item Value Reference Range Interpretation [...] (test code = MDIFF) NO BASIC METABOLIC [id number] 03:27:00* Test Item Value Reference Range Interpretation [...] CA) 8.9 mg/dL 8.5-10.1 N BASIC METABOLIC [id number] 03:16:00* Test Item Value Reference Range Interpretation [...] code = CA) 8.9 mg/dL 8.5-10.1 N [id number] 22:16:00* Test Item Value Reference Range Interpretation Comments GLUBED (test code = GLUBED) 119 mg/dL 74-106 H Performed by certified renovator machine operator at [facility] THROMBOPLASTIN TIME [id number] 21:16:00* Test Item Value Reference Range Interpretation Comments THROMBOPLASTIN TIME PARTIAL (test code = PTT) 59.9 seconds 25.0-36. 5 H IS PATIENT ON ANTICOAGULANTS? YLIST ANTICOAGULANTS [id number] 17:47:00* Test Item Value Reference Range Interpretation Comments GLUBED (test code = GLUBED) 212 mg/dL 74-106 H Performed by certified renovator machine operator at [facility] THROMBOPLASTIN TIME [id number] 15:57:00* Test Item Value Reference Range Interpretation Comments THROMBOPLASTIN TIME PARTIAL (test code = PTT) 65.0 seconds 25.0-36. 5 H IS PATIENT ON ANTICOAGULANTS? YLIST ANTICOAGULANTS [id number] 12:02:00* Test Item Value Reference Range Interpretation Comments GLUBED (test code = GLUBED) 116 mg/dL 74-106 H Performed by certified renovator machine operator at [facility] BASIC METABOLIC [id number] 10:17:00* Test Item Value Reference Range Interpretation [...] CA) 9.6 mg/dL 8.5-10.1 N THROMBOPLASTIN TIME [id number] 09:46:00* Test Item Value Reference Range Interpretation [...] NRBC#) 0.00 K/mm3 0.0-0.1 N CBC W/AUTO [id number] 09:30:00* Test Item Value Reference Range Interpretation [...] # (test code = BA#) K/mm3 0.0-0.2 [id number] 05:58:00* Test Item Value Reference Range Interpretation Comments GLUBED (test code = GLUBED) 115 mg/dL 74-106 H Performed by certified renovator machine operator at [facility] THROMBOPLASTIN TIME VYFCJXS7506-90-07 02:05:00* Test Item Value Reference Range Interpretation Comments THROMBOPLASTIN TIME PARTIAL (test code = PTT) 94.6 seconds 25.0-36. 5 HH Results called to [id number] by [email or web address] 06/21/19 0205Critical results verified and read back by Nurse? Y IS PATIENT ON ANTICOAGULANTS? YLIST ANTICOAGULANTS [id number] 23:36:00* Test Item Value Reference Range Interpretation Comments GLUBED (test code = GLUBED) 121 mg/dL 74-106 H Performed by certified renovator machine operator at [facility] [id number] 22:36:00* Test Item Value Reference Range Interpretation Comments GLUBED (test code = GLUBED) 125 mg/dL 74-106 H Performed by certified renovator machine operator at [facility] [id number] 16:36:00* Test Item Value Reference Range Interpretation Comments GLUBED (test code = GLUBED) 141 mg/dL 74-106 H Performed by certified renovator machine operator at [facility] THROMBOPLASTIN TIME [id number] 14:59:00* Test Item Value Reference Range Interpretation Comments THROMBOPLASTIN TIME PARTIAL (test code = PTT) 46.7 seconds 25.0-36. 5 H IS PATIENT ON ANTICOAGULANTS? YLIST ANTICOAGULANTS [id number] 13:10:00* Test Item Value Reference Range Interpretation Comments GLUBED (test code = GLUBED) 155 mg/dL 74-106 H Performed by certified renovator machine operator at [facility] [id number] 00:02:00* Test Item Value Reference Range Interpretation Comments GLUBED (test code = GLUBED) 104 mg/dL 74-106 N Performed by certified renovator machine operator at [facility] - XR CHEST 1 [id number] 16:49:00 FAX: Clary Galeana MD [phone] [place]: St: REG Name: MARLEN RODGERS [facility] : [birth year] 45 Age/S: 74/M [address] [facility] Unit #: [id number] Loc: [place] [address] Phys: Clary Galeana MD Acct: [id number] Dis Date: Status: REG ER PHONE #: [phone] Exam Date: 06/19/2019 1622 FAX #: [phone] Reason: CHEST PAIN EXAMS: CPT CODE: [id number] XR CHEST 1 V 33085 HISTORY: Chest pain. COMPARISON: April 29, 2019. Location: [facility]. No ac damian infiltrates, effusion or congestion is noted. Loss of lung volume in t he right upper lobe with surgical sutures. These findings suggest lobectom y. Mild cardiomegaly. IMPRESSION: No acute i nfiltrates, effusion or congestion. at 1649 Reported and signed by: Perez Pollack M.D. CC: Clary Galeana MD Technologist: Rosa Isela Ocampo RT(R) Trnscrd Date/Time/By: 06/19/2019 (416) : By: [email or web address] Orig Print D/T: S: 06/19/2019 (4015) PAGE 1 Signed Report BASIC METABOLIC PANEL [...] CA) 9.6 mg/dL 8.5-10.1 N HEPATIC FUNCTION [id number] 15:51:00* Test Item Value Reference Range Interpretation [...] reference range due to change in reagent. [id number] 15:51:00* Test Item Value Reference Range Interpretation Comments LIPASE (test code = LIP) 98 U/L 73.0-393.0 N [id number] 15:51:00* Test Item Value Reference Range Interpretation Comments MAGNESIUM (test code = MAG) 1.8 mg/dL 1.8-2.4 N BASIC METABOLIC [id number] 15:42:00* Test Item Value Reference Range Interpretation [...] code = CA) mg/dL 8.5-10.1 HEPATIC FUNCTION [id number] 15:42:00* Test Item Value Reference Range Interpretation [...] TOTAL (test code = ALKP) IUnit/L 45-117 [id number] 15:42:00* Test Item Value Reference Range Interpretation Comments LIPASE (test code = LIP) U/L 73.0-393.0 [id number] 15:42:00* Test Item Value Reference Range Interpretation Comments MAGNESIUM (test code = MAG) mg/dL 1.8-2.4 PROTHROMBIN [id number] 15:39:00* Test Item Value Reference Range Interpretation [...] (2.5-3.5) IS PATIENT ON ANTICOAGULANTS? NTHROMBOPLASTIN TIME [id number] 15:39:00* Test Item Value Reference Range Interpretation Comments THROMBOPLASTIN TIME PARTIAL (test code = PTT) 32.9 seconds 25.0-36. 5 N IS PATIENT ON ANTICOAGULANTS? NCBC W/O [id number] 15:24:00* Test Item Value Reference Range Interpretation [...] MPV) 9.4 fL 6.7-11.0 N COAGULATION TIME [id number] 17:24:00* Test Item Value Reference Range Interpretation Comments COAGULATION TIME ACTIVATED (test code = ACT) 325 seconds 62.8-88.0 H COAGULATION TIME [id number] 17:24:00* Test Item Value Reference Range Interpretation Comments COAGULATION TIME ACTIVATED (test code = ACT) 366 seconds 62.8-88.0 H COAGULATION TIME [id number] 17:24:00* Test Item Value Reference Range Interpretation Comments COAGULATION TIME ACTIVATED (test code = ACT) 357 seconds 62.8-88.0 H COAGULATION TIME [id number] 17:24:00* Test Item Value Reference Range Interpretation Comments COAGULATION TIME ACTIVATED (test code = ACT) 266 seconds 62.8-88.0 H COAGULATION TIME [id number] 17:24:00* Test Item Value Reference Range Interpretation Comments COAGULATION TIME ACTIVATED (test code = ACT) 256 seconds 62.8-88.0 H [id number] 15:51:00* Test Item Value Reference Range Interpretation Comments GLUBED (test code = GLUBED) 163 mg/dL 74-106 H Performed by certified renovator machine operator at [facility] BASIC METABOLIC [id number] 12:13:00* Test Item Value Reference Range Interpretation [...] CA) 8.9 mg/dL 8.5-10.1 N BASIC METABOLIC [id number] 12:10:00* Test Item Value Reference Range Interpretation [...] code = CA) mg/dL 8.5-10.1 CBC W/O [id number] 11:37:00* Test Item Value Reference Range Interpretation [...] code = MPV) 9.2 fL 6.7-11.0 N [id number] 11:06:00* Test Item Value Reference Range Interpretation Comments GLUBED (test code = GLUBED) 119 mg/dL 74-106 H Performed by certified renovator machine operator at [facility] PROTHROMBIN [id number] 07:25:00* Test Item Value Reference Range Interpretation [...] (2.5-3.5) IS PATIENT ON ANTICOAGULANTS? YLIST ANTICOAGULANTS [id number] 05:43:00* Test Item Value Reference Range Interpretation Comments GLUBED (test code = GLUBED) 161 mg/dL 74-106 H Performed by certified renovator machine operator at [facility] [id number] 21:01:00* Test Item Value Reference Range Interpretation Comments GLUBED (test code = GLUBED) 241 mg/dL 74-106 H Performed by certified renovator machine operator at [facility] [id number] 17:32:00* Test Item Value Reference Range Interpretation Comments GLUBED (test code = GLUBED) 88 mg/dL 74-106 N Performed by certified renovator machine operator at [facility] PROTHROMBIN [id number] 16:24:00* Test Item Value Reference Range Interpretation [...] (2.5-3.5) IS PATIENT ON ANTICOAGULANTS? YLIST ANTICOAGULANTS [id number] 13:14:00* Test Item Value Reference Range Interpretation Comments GLUBED (test code = GLUBED) 243 mg/dL 74-106 H Performed by certified renovator machine operator at [facility] [id number] 06:30:00* Test Item Value Reference Range Interpretation Comments GLUBED (test code = GLUBED) 149 mg/dL 74-106 H Performed by certified renovator machine operator at [facility] [id number] 20:17:00* Test Item Value Reference Range Interpretation Comments GLUBED (test code = GLUBED) 181 mg/dL 74-106 H Performed by certified renovator machine operator at [facility] [id number] 17:40:00* Test Item Value Reference Range Interpretation Comments GLUBED (test code = GLUBED) 144 mg/dL 74-106 H Performed by certified renovator machine operator at [facility] [id number] 14:29:00* Test Item Value Reference Range Interpretation Comments GLUBED (test code = GLUBED) 268 mg/dL 74-106 H Performed by certified renovator machine operator at [facility] [id number] 06:28:00* Test Item Value Reference Range Interpretation Comments GLUBED (test code = GLUBED) 147 mg/dL 74-106 H Performed by certified renovator machine operator at [facility] [id number] 20:25:00* Test Item Value Reference Range Interpretation Comments GLUBED (test code = GLUBED) 136 mg/dL 74-106 H Performed by certified renovator machine operator at [facility] [id number] 17:18:00* Test Item Value Reference Range Interpretation Comments GLUBED (test code = GLUBED) 70 mg/dL 74-106 L Performed by certified renovator machine operator at [facility] [id number] 15:59:00 RUN DATE: 05/05/19 [facility] PAGE 1 RUN TIME: 1600 Specimen Inqui ry RUN USER: INTERFACE PATIENT: MARLEN NOLAND ACCT #: [id number] LOC: LIBBY U #: [id number] AGE/SX: 74/M ROOM: 2081 RE04/01/19REG DR: Maikol Anand MD : 45 BED: A DIS: STATUS: ADM IN TLOC: SPEC #: [id number] RECD: 05/01/19 STATUS: JOHANNA CHANDLER #: [id number] JHONNY: 04/28/19[facility] DR: Yolande Kelley MD ENTERED: 05/01/19 SP TYPE: PLAQUE OTHR DR: Alison Song MD, Jawdat R DPM Hampel, Nehemia MD Qureshi, Salah Uddin MD Tripathy, Uttam MD Vasquez Donado, Andres F MD Young, Lauren NPORDERED: GROSS COPIES TO: Alison Song MD [address] [place] [address] Tanvi Murillo DPM [address] [place] [id number] Isrrael Ramos MD [address] [place] [address] Yolande Kelley MD [address] [place] [phone] Aury Munoz MD [address] [facility] [address] [place] [phone] [place] [address] [facility] [address] [place] [address] [email or web address] Carl Deleon MD [address] [facility] [address] [place] [address] CONTINUED ON NEXT P AGE RUN DATE: 05/05/19 [facility] PAGE 2 RUN TIME: 1600 Specimen Inquiry RUN USER: INTERFACE SPEC #: [id number] PATIENT: MARLEN NOLAND #[id number] (Continued) COPIES TO: (Con tinued) Tammy Lorenzana SECURITY INCIDENT HANDLER [address] [place] [address] PROCEDURES: MYRON (05/05/19-1138) TISSUES: LEG, NOS - RIGHT CLINICAL HISTORY COLLECTION DATE: 04/28/2019 LEFT LEG ISCHEMIA FINAL DIAGNOSIS Left leg plaque, removal: PARTIALLY CALCIFIED ATHERO MATOUS PLAQUE MATERIAL BO/francisco Callejas [address], [address] MACROSCOPI C The specimen is received in [...] in a single cassette. GROSS PERFORMED AT [facility] [address] [place] [phone] (P) [phone] CONTINUED ON NEXT PAGE -- RUN DATE: 05/05/19 [facility] PAGE 3 RUN TIME: 1600 Specimen Inquiry RUN USER: INTERFACE SPEC #: [id number] PATIENT: MARLEN NOLAND #[id number] (Continued) MICROSCOPIC All of the stains, including any controls performed, stain appropriately. MICROSCOPIC PERFORMED AT [facility] [address] [place], [place] [address] (p)[phone] PERFORMING SITE Diagnosis performed at: [facility] [address] [place] [address] Signed SIGNATURE ON FILE Clair Armstrong MD 05/05/19 1559 END OF REPORT [id number] 11:58:00* Test Item Value Reference Range Interpretation Comments GLUBED (test code = GLUBED) 274 mg/dL 74-106 H Performed by certified renovator machine operator at [facility] BASIC METABOLIC [id number] 06:19:00* Test Item Value Reference Range Interpretation [...] CA) 9.6 mg/dL 8.5-10.1 N BASIC METABOLIC [id number] 06:07:00* Test Item Value Reference Range Interpretation [...] code = CA) mg/dL 8.5-10.1 CBC W/O [id number] 06:03:00* Test Item Value Reference Range Interpretation [...] code = MPV) 10.0 fL 6.7-11.0 N [id number] 05:45:00* Test Item Value Reference Range Interpretation Comments GLUBED (test code = GLUBED) 141 mg/dL 74-106 H Performed by certified renovator machine operator at [facility] [id number] 16:58:00* Test Item Value Reference Range Interpretation Comments GLUBED (test code = GLUBED) 168 mg/dL 74-106 H Performed by certified renovator machine operator at [facility] [id number] 16:58:00* Test Item Value Reference Range Interpretation Comments GLUBED (test code = GLUBED) 171 mg/dL 74-106 H Performed by certified renovator machine operator at [facility] - XR FOREARM 2 VIEWS [id number] 09:31:00 FAX: Maikol Capps [phone] [place]: St: ADM Name: MARLEN RODGERS [facility] : [birth year] 45 Age/S: 74/M [address] [facility] Unit #: [id number] Loc: V.20[address] [place] [address] Phys: Maikol Anand MD Acct: [id number] Dis Date: Status: ADM IN PHONE #: [phone] Exam Date: 05/04/2019829 FAX #: [phone] Reason: S/P FALL EXAMS: CPT CODE: [id number] XR FOREARM 2 [place] [address] HISTORY: Pain. CLAUDIA RISON: None available. Location: [facility]. 2 views each o f the right [...] signed by: Perez Pollack M.D. CC: Maikol Anand Technologist: Ct Piper, RT(R); ALEXANDR ROGERS, RT(R) Trnscrd Date/Time/By: 05/04/2019 (930) : By: nickie [email or web address] Orig Print D/T: S: 05/04/2019 (9962) PAGE 1 Signed Report GLUBED 2019-05-04 06:04:00* Test Item Value Reference Range Interpretation Comments GLUBED (test code = GLUBED) 182 mg/dL 74-106 H Performed by certified renovator machine operator at [facility] [id number] 20:54:00* Test Item Value Reference Range Interpretation Comments GLUBED (test code = GLUBED) 220 mg/dL 74-106 H Performed by certified renovator machine operator at [facility] [id number] 15:14:00* Test Item Value Reference Range Interpretation Comments GLUBED (test code = GLUBED) 224 mg/dL 74-106 H Performed by certified renovator machine operator at [facility] [id number] 15:14:00* Test Item Value Reference Range Interpretation Comments GLUBED (test code = GLUBED) 239 mg/dL 74-106 H Performed by certified renovator machine operator at [facility] - CT HEAD/BRAIN W/O [id number] 15:02:00 Name: MARLEN NOLAND [facility] : 1945 Age/S: 74 / M [address] [facility] Unit #: [id number] Loc: [place] [address] Phys: Maikol Anand MD Acct: [id number] Dis Date: Status: ADM IN PHONE #: [phone] Exam Date: 05/03/2019 1433 FAX #: [phone] Reason: S/P FALL EXAMS: CPT CODE: [id number] CT HEAD/BRAIN W/O CONT 86758 HISTORY: S/P FALL; head trauma TECHNIQUE: Noncontrast [...] signed by: Netta Hidalgo D.O. CC: Maikol Anand Technologist:Hieu Murillo RT(R),(MR),(CT); CTDI: DLP: Trnscb Date/Time: 05/03/2019 (9042) [email or web address] Orig Print D/T: S: 05/03/2019 (2565) PAGE 1 Signed Report - XR HIP W PEL BI MIN5 [id number] 14:36:00 FAX: Maikol Capps [phone] [place]: St: ADM Name: MARLEN RODGERS [facility] : [birth year] 45 Age/S: 74/M [address] [facility] Unit #: [id number] Loc: V.2 [place] [address] Phys: Maikol Anand MD Acct: [id number] Dis Date: Status: ADM IN PHONE #: [phone] Exam Date: 05/03/2019 2200 FAX #: [phone] Reason: S/P FALL EXAMS: CPT CODE: [id number] XR HIP W PEL BI MIN5 VW [address] CLINICAL HISTORY: S/P FALL TECHNIQUE: Neutral and [...] signed by: Netta Hidalgo D.O. CC: Maikol Anand Technologist: Marsha Arnold(R); Nichole Lubin RT(R) Trnscrd Date/Time/By: 05/03/2019 (3305) : By: [email or web address] Orig Print D/T: S: 0 05/03/2019 (5991) PAGE 1 Signed Re port [id number] 06:03:00* Test Item Value Reference Range Interpretation Comments GLUBED (test code = GLUBED) 146 mg/dL 74-106 H Performed by certified renovator machine operator at [facility] [id number] 20:44:00* Test Item Value Reference Range Interpretation Comments GLUBED (test code = GLUBED) 249 mg/dL 74-106 H Performed by certified renovator machine operator at [facility] [id number] 14:58:00* Test Item Value Reference Range Interpretation Comments GLUBED (test code = GLUBED) 232 mg/dL 74-106 H Performed by certified renovator machine operator at [facility] [id number] 12:01:00* Test Item Value Reference Range Interpretation Comments GLUBED (test code = GLUBED) 239 mg/dL 74-106 H Performed by certified renovator machine operator at [facility] - CT ABD PELVIS W/O [id number] 09:42:00 Name: MARLEN NOLAND [facility] : 1945 Age/S: 74 / M [address] [facility] Unit #: [id number] Loc: [place] [address] Phys: Maikol Anand MD Acct: [id number] Dis Date: Status: ADM IN PHONE #: [phone] Exam Date: 05/02/2019818 FAX #: [phone] Reason: ACUTE BLOOD LOSS ANEMIA EXAMS: CPT CODE: [id number] CT ABD PELVIS W/O CONT 87252 HISTORY: Acute blood loss and anemia. COMPARISON: CT scan from April 02, 2019. CT abdomen and pelvis: Stone protocol. Automated exposure control. Location: [facility]. CT ABDOMEN: The lung bases demonstrating small [...] 1 Signed Report (CONTINUED) Name: MARLEN NOLAND [facility] : 1945 Age/S: 74 / M [address] [facility] Unit #: [id number] Loc: [place] [address] Phys: Maikol Tillman MD Acct: [id number] Dis Date: Status: ADM IN P ANNA #: [phone] Exam Date: 05/02/2019818 FAX #: [phone] Reason: ACUTE BLOOD LOSS ANEMIA EX AMS: CPT CODE: [id number] CT A BD PELVIS W/O CONT 94061 <Continued> side. Anatomic alignment. Sclerosis of the vertebral bodies from L2 through S1 level. IMPRESSION: Normal appendix without bowel obstruction or colitis or diverticulitis or enteritis. No intraperitoneal or retroperitoneal hemorrhage or subcutaneous hemorrha ge. No hydroureteronephrosis with decompressed urinary bladder with Nevarez catheter. Bosniak 1 lesion in the left lower pole measured 4 .3 cm. at 0 942 Reported and signed by: Perez Pollack M.D. CC: Maikol Anand Tiara hnologist:Hieu Sin RT(R),(MR),(CT); CTDI: DLP: Trnscb Date/T rafael: 05/02/2019 (0942) [email or web address] Orig Print D/T: S: 05/02 (0945) PAGE 2 Signed Report [id number] 06:28:00* Test Item Value Reference Range Interpretation Comments GLUBED (test code = GLUBED) 149 mg/dL 74-106 H Performed by certified renovator machine operator at [facility] BASIC METABOLIC [id number] 05:48:00* Test Item Value Reference Range Interpretation [...] CA) 8.6 mg/dL 8.5-10.1 N BASIC METABOLIC [id number] 05:43:00* Test Item Value Reference Range Interpretation [...] code = CA) mg/dL 8.5-10.1 CBC W/AUTO [id number] 05:37:00* Test Item Value Reference Range Interpretation [...] NRBC#) 0.00 K/mm3 0.0-0.1 N BASIC METABOLIC [id number] 02:14:00* Test Item Value Reference Range Interpretation [...] code = CA) 8.7 mg/dL 8.5-10.1 N [id number] 02:14:00* Test Item Value Reference Range Interpretation Comments PHOSPHORUS (test code = PHOS) 2.4 mg/dL 2.5-4.9 L [id number] 02:14:00* Test Item Value Reference Range Interpretation Comments MAGNESIUM (test code = MAG) 1.6 mg/dL 1.8-2.4 L CALCIUM [id number] 02:14:00* Test Item Value Reference Range Interpretation Comments CALCIUM IONIZED (test code = ALIVIA) 1.30 mmol/L 1.12-1.32 N CBC W/AUTO [id number] 01:50:00* Test Item Value Reference Range Interpretation [...] (test code = MDIFF) NO BASIC METABOLIC [id number] 01:45:00* Test Item Value Reference Range Interpretation [...] code = CA) 8.7 mg/dL 8.5-10.1 N [id number] 01:45:00* Test Item Value Reference Range Interpretation Comments PHOSPHORUS (test code = PHOS) 2.4 mg/dL 2.5-4.9 L [id number] 01:45:00* Test Item Value Reference Range Interpretation Comments MAGNESIUM (test code = MAG) 1.6 mg/dL 1.8-2.4 L CALCIUM [id number] 01:45:00* Test Item Value Reference Range Interpretation Comments CALCIUM IONIZED (test code = ALIVIA) mmol/L 1.12-1.32 BASIC METABOLIC [id number] 01:40:00* Test Item Value Reference Range Interpretation [...] CALCIUM (test code = CA) mg/dL 8.5-10.1 [id number] 01:40:00* Test Item Value Reference Range Interpretation Comments PHOSPHORUS (test code = PHOS) mg/dL 2.5-4.9 [id number] 01:40:00* Test Item Value Reference Range Interpretation Comments MAGNESIUM (test code = MAG) mg/dL 1.8-2.4 CALCIUM [id number] 01:40:00* Test Item Value Reference Range Interpretation Comments CALCIUM IONIZED (test code = ALIVAI) mmol/L 1.12-1.32 [id number] 20:36:00* Test Item Value Reference Range Interpretation Comments GLUBED (test code = GLUBED) 217 mg/dL 74-106 H Performed by certified renovator machine operator at [facility] [id number] 17:17:00* Test Item Value Reference Range Interpretation Comments GLUBED (test code = GLUBED) 194 mg/dL 74-106 H Performed by certified renovator machine operator at [facility] [id number] 11:28:00* Test Item Value Reference Range Interpretation Comments GLUBED (test code = GLUBED) 271 mg/dL 74-106 H Performed by certified renovator machine operator at [facility] [id number] 06:47:00* Test Item Value Reference Range Interpretation Comments GLUBED (test code = GLUBED) 180 mg/dL 74-106 H [facility] certified renovator machine [facility]ified Nurse~ [id number] 03:59:00* Test Item Value Reference Range Interpretation Comments GLUBED (test code = GLUBED) 165 mg/dL 74-106 H Performed by certified renovator machine operator at [facility] BASIC METABOLIC [id number] 03:22:00* Test Item Value Reference Range Interpretation [...] code = CA) 7.9 mg/dL 8.5-10.1 L [id number] 03:22:00* Test Item Value Reference Range Interpretation Comments PHOSPHORUS (test code = PHOS) 2.2 mg/dL 2.5-4.9 L [id number] 03:22:00* Test Item Value Reference Range Interpretation Comments MAGNESIUM (test code = MAG) 1.7 mg/dL 1.8-2.4 L CALCIUM [id number] 03:22:00* Test Item Value Reference Range Interpretation Comments CALCIUM IONIZED (test code = ALIVIA) 1.24 mmol/L 1.12-1.32 N BASIC METABOLIC [id number] 02:53:00* Test Item Value Reference Range Interpretation [...] code = CA) 7.9 mg/dL 8.5-10.1 L [id number] 02:53:00* Test Item Value Reference Range Interpretation Comments PHOSPHORUS (test code = PHOS) 2.2 mg/dL 2.5-4.9 L [id number] 02:53:00* Test Item Value Reference Range Interpretation Comments MAGNESIUM (test code = MAG) 1.7 mg/dL 1.8-2.4 L CALCIUM [id number] 02:53:00* Test Item Value Reference Range Interpretation Comments CALCIUM IONIZED (test code = ALIVIA) mmol/L 1.12-1.32 CBC W/AUTO [id number] 02:44:00* Test Item Value Reference Range Interpretation Comments WHITE BLOOD CELL (test code = WBC) 3.0 K/mm3 4.5-12.5 L RED BLOOD CELL (test code = RBC) 2.22 mill/mm3 4.0-5.8 L HEMOGLOBIN (test code = HGB) 6.5 gram/dL 13.0-17.5 L HEMATOCRIT (test code = HCT) 21.2 % 42.0-52.0 LL Results called to [id number] by [email or web address] 05/01/19 0244Critical results verified and read back [...] (test code = MDIFF) NO BASIC METABOLIC [id number] 02:43:00* Test Item Value Reference Range Interpretation [...] code = CA) 7.9 mg/dL 8.5-10.1 L [id number] 02:43:00* Test Item Value Reference Range Interpretation Comments PHOSPHORUS (test code = PHOS) mg/dL 2.5-4.9 [id number] 02:43:00* Test Item Value Reference Range Interpretation Comments MAGNESIUM (test code = MAG) mg/dL 1.8-2.4 CALCIUM [id number] 02:43:00* Test Item Value Reference Range Interpretation Comments CALCIUM IONIZED (test code = ALIVIA) mmol/L 1.12-1.32 [id number] 21:38:00* Test Item Value Reference Range Interpretation Comments GLUBED (test code = GLUBED) 329 mg/dL 74-106 H [facility] certified renovator machine [facility]~ [id number] 16:36:00* Test Item Value Reference Range Interpretation Comments GLUBED (test code = GLUBED) 215 mg/dL 74-106 H Performed by certified renovator machine operator at [facility] ARTERIAL BLOOD [id number] 10:34:00* Test Item Value Reference Range Interpretation [...] to and read back by DR. Helm 10:19 - 04/28/2019; by BOWEN METHEMOGLOBIN (test code = METHGB) 0.3 % 0.0-1.50 N O2 CONTENT (test code = O2CT) 14.2 % vol 18.0-22.0 L [id number] 10:33:00* Test Item Value Reference Range Interpretation Comments GLUBED (test code = GLUBED) 162 mg/dL 74-106 H Performed by certified renovator machine operator at [facility] [id number] 07:52:00* Test Item Value Reference Range Interpretation Comments GLUBED (test code = GLUBED) 138 mg/dL 74-106 H Performed by certified renovator machine operator at [facility] BASIC METABOLIC [id number] 03:16:00* Test Item Value Reference Range Interpretation [...] code = CA) 8.0 mg/dL 8.5-10.1 L [id number] 03:16:00* Test Item Value Reference Range Interpretation Comments PHOSPHORUS (test code = PHOS) 2.9 mg/dL 2.5-4.9 N [id number] 03:16:00* Test Item Value Reference Range Interpretation Comments MAGNESIUM (test code = MAG) 1.9 mg/dL 1.8-2.4 N CALCIUM [id number] 03:16:00* Test Item Value Reference Range Interpretation Comments CALCIUM IONIZED (test code = ALIVIA) 1.24 mmol/L 1.12-1.32 N BASIC METABOLIC [id number] 03:14:00* Test Item Value Reference Range Interpretation [...] code = CA) 8.0 mg/dL 8.5-10.1 L [id number] 03:14:00* Test Item Value Reference Range Interpretation Comments PHOSPHORUS (test code = PHOS) 2.9 mg/dL 2.5-4.9 N [id number] 03:14:00* Test Item Value Reference Range Interpretation Comments MAGNESIUM (test code = MAG) 1.9 mg/dL 1.8-2.4 N CALCIUM [id number] 03:14:00* Test Item Value Reference Range Interpretation Comments CALCIUM IONIZED (test code = ALIVIA) mmol/L 1.12-1.32 BASIC METABOLIC [id number] 03:02:00* Test Item Value Reference Range Interpretation [...] CALCIUM (test code = CA) mg/dL 8.5-10.1 [id number] 03:02:00* Test Item Value Reference Range Interpretation Comments PHOSPHORUS (test code = PHOS) mg/dL 2.5-4.9 [id number] 03:02:00* Test Item Value Reference Range Interpretation Comments MAGNESIUM (test code = MAG) mg/dL 1.8-2.4 CALCIUM [id number] 03:02:00* Test Item Value Reference Range Interpretation Comments CALCIUM IONIZED (test code = ALIVIA) mmol/L 1.12-1.32 CBC W/AUTO [id number] 02:57:00* Test Item Value Reference Range Interpretation [...] DIFF REQUIRED (test code = MDIFF) NO [id number] 17:27:00* Test Item Value Reference Range Interpretation Comments GLUBED (test code = GLUBED) 132 mg/dL 74-106 H Performed by certified renovator machine operator at [facility] [id number] 12:13:00* Test Item Value Reference Range Interpretation Comments GLUBED (test code = GLUBED) 102 mg/dL 74-106 N Performed by certified renovator machine operator at [facility] HGB [id number] 04:20:00* Test Item Value Reference Range Interpretation Comments HEMOGLOBIN (test code = HGB) 8.0 gram/dL 13.0-17.5 L HEMATOCRIT (test code = HCT) 25.1 % 42.0-52.0 L - XR CHEST 1 [id number] 02:44:00 FAX: Maikol Capps [facility] [phone] [place]: St: [facility] FAX: Jaime Zpaata SECURITY INCIDENT HANDLER Name: MARLEN NOLAND [facility] : 1945 Age/S: 74/M [address] Unit #: [id number] Loc: V.S0 [place] [address] Phys: Jaime Zapata NP Acct: [id number] Dis Date: Status: ADM IN PHONE #: [phone] Exam Date: 04/29/2019 0210 FAX #: [phone] Reason: s/p fem pop bypass 04/28/19 EXAMS: CPT CODE: [id number] XR CHEST 1 V 85219 LOCATION: T18 EXAM: CHEST 1 VIEW INDICATION: [...] signed by: Elieser Masters M.D. CC: Maikol Anand; Jaime Zapata NP Technologist: Marcus Deng RT(R); SARIAH DOCKERY RT(R) Trnscrd Date/Time/By: 04/29/2019 (0244) : By: [email or web address] Orig Print D/T: S: 04/29/2019 (0248) PAGE [...] RELATED TO RISK LEVELS ASRECOMMENDED BY THE BESSIE. HEART, LUNG, AND BLOOD INST. HDL CHOLESTEROL (test code = HDL) 33 mg/dL 40-60 L LIPOPROTEIN LDL (test code = LDL) 20 mg/dL 100-129 L Reference Interval: mg/dL mmol/L Optimal <100 <2.6Near/above optimal 100-129 2.6- 3.3Borderline High 130-159 3.4-4.1High 160-189 4.1-4.9Very High >=190 >=4.9========= This LDL result is a direct measurement.========= [id number] 01:00:00* Test Item Value Reference Range Interpretation Comments MAGNESIUM (test code = MAG) 1.4 mg/dL 1.8-2.4 L COMPREHENSIVE METABOLIC [id number] 00:47:00* Test Item Value Reference Range Interpretation [...] LDL (test code = LDL) mg/dL 100-129 [id number] 00:47:00* Test Item Value Reference Range Interpretation Comments MAGNESIUM (test code = MAG) 1.4 mg/dL 1.8-2.4 L COMPREHENSIVE METABOLIC [id number] 00:13:00* Test Item Value Reference Range Interpretation [...] code = ALKP) IUnit/L 45-117 CBC W/AUTO [id number] 00:12:00* Test Item Value Reference Range Interpretation Comments WHITE BLOOD CELL (test code = WBC) 4.3 K/mm3 4.5-12.5 L RED BLOOD CELL (test code = RBC) 2.16 mill/mm3 4.0-5.8 L HEMOGLOBIN (test code = HGB) 6.4 gram/dL 13.0-17.5 L RESULT VERIFIED BY REPEAT ANALYSIS HEMATOCRIT (test code = HCT) 19.8 % 42.0-52.0 LL Results called to [id number] by [email or web address] 04/29/19 0011Critical results verified and read back [...] DIFF REQUIRED (test code = MDIFF) NO [id number] 21:40:00* Test Item Value Reference Range Interpretation Comments GLUBED (test code = GLUBED) 107 mg/dL 74-106 H Performed by certified renovator machine operator at [facility] - XR CHEST 1 [id number] 16:32:00 FAX: Maikol Capps [phone] [place]: St: ADM FAX: Jaime Zapata NP Name: MARLEN NOLAND [facility] : 1945 Age/S: 74/M [address] [facility] Unit #: [id number] Loc: V.2 [place] [address] Phys: Jaime Zapata NP Acct: [id number] Dis Date: Status: ADM IN PHONE #: [phone] Exam Date: 04/28/2019 1620 FAX #: [phone] Reason: s/p fempop bypass 04/28/19 EXAMS: CPT CODE: [id number] XR CHEST 1 V 36339 HISTORY: Femoral bypass. COMPARISON: April 06, 2019. Location: [facility]. Right jugular central line is with the tip projected over the SVC. Bibasal subsegmental atelectasis. No acute infiltrates, effusion or congestion. Elevated right hemidiaphragm. Postop changes within the right lung with loss of lung volume and shift the mediastinum towards the right. Cardiomegaly. IMPRESSION: No acute infiltrates, effusion or congestion. Dependent changes. at 1632 Reported and signed by: Perez Pollack M.D. CC: Maikol Anand; Jaime Zapata NP Technologist: NAKUL Lobo Trnscrd Date/Time/By: 04/28/2019 (131) : By: [email or web address] Orig Print D/T: S: 04/28/2019 (5548) PAGE 1 Signed Report - XR FEMUR MIN 2 VWS [id number] 15:45:00 FAX: Maikol Capps [phone] [place]: St: ADM Name: MARLEN RODGERS [facility] : [birth year] Age/S: 74/M [address] [facility] Unit #: [id number] Loc: V.S02 [place] [address] Phys: Maikol Anand MD Acct: [id number] Dis Date: Status: ADM IN PHONE #: [phone] Exam Date: 04/28/2019 1503 FAX #: [phone] Reason: NEEDLE COUNT OFF EXAMS: CPT CODE: [id number] XR FEMUR MIN [address] [place] [address] HISTORY: Discordant needle count in OR: Location: [facility] COMPARISON: None available. AP and lateral view of the femur and leg on the left side. No needle is noted. Multiple surgical clips along the knee joint and the lateral and medial thigh location. Vascular calcifications. Knee joint is narrowed. Ankle mortise is unremarkable. Hip joint is narrowed. IMPRESSION: No radiopaque foreign body to suggest needle. at 6560 Reported and signed by: Perez Pollack M.D. CC: Maikol Anand Technologist: RT YUDELKA(R) Trniaivan Date/Time/By: 04/28/2019 (3958) : By: [email or web address] Orig Print D/T: S: 04/28/2019 (3655) PAGE 1 Signed Report - XR TIBIA/FIBULA 2 V [id number] 15:45:00 FAX: Yolande uQick MD [phone] [place]: St: ADM FAX: Maikol Capps [phone] Name: MARLEN NOLAND [facility] : 1945 Age/S: 74/M [address] [facility] Unit #: [id number] Loc: V.S02 [place] [address] Phys: Yolande Kelley MD Acct: [id number] Dis Date: Status: ADM IN PHONE #: [phone] Exam Date: 04/28/2019 1503 FAX #: [phone] Reason: NEEDLE COUNT OFF EXAMS: CPT CODE: [id number] XR TIBIA/FIBULA 2 V LT [address] HISTORY: Discordant needle count in OR: Location: [facility] COMPARISON: None available. AP and lateral view of the femur and leg on the left side. No needle is noted. Multiple surgical clips along the knee joint and the lateral and medial thigh loc ation. Vascular calcifications. Knee joint is narrowed. Ankle mortise is u nremarkable. Hip joint is narrowed. IMPRESSION: No radiopaque foreign body to suggest needle. at 1546 Repor bernice and signed by: Perez Pollack M.D. CC: Yolande Kelley MD; Maikol Anand Technologist: NAKUL JHA) Trnscrd Date/Time/By: 04/28/2019 (2444) : By: Alexandra MoncadaTH4 Orig Print D/T: S: 04/28/2019 (2263) PAGE 1 Signed Report GLUBED 2019-04-28 15:44:00* Test Item Value Reference Range Interpretation Comments GLUBED (test code = GLUBED) 111 mg/dL 74-106 H Performed by certified renovator machine operator at [facility] [id number] 08:12:00* Test Item Value Reference Range Interpretation Comments GLUBED (test code = GLUBED) 114 mg/dL 74-106 H [facility] certified renovator [facility] [id number] 21:02:00* Test Item Value Reference Range Interpretation Comments GLUBED (test code = GLUBED) 159 mg/dL 74-106 H Performed by certified renovator machine operator at [facility] PROTHROMBIN [id number] 17:22:00* Test Item Value Reference Range Interpretation [...] (2.5-3.5) IS PATIENT ON ANTICOAGULANTS? NTHROMBOPLASTIN TIME [id number] 17:22:00* Test Item Value Reference Range Interpretation Comments THROMBOPLASTIN TIME PARTIAL (test code = PTT) 33.2 seconds 25.0-36. 5 N IS PATIENT ON ANTICOAGULANTS? NCOMPREHENSIVE METABOLIC [id number] 17:21:00 * Test Item Value Reference Range [...] reference range due to change in reagent. [id number] 17:21:00* Test Item Value Reference Range Interpretation Comments MAGNESIUM (test code = MAG) 1.8 mg/dL 1.8-2.4 N COMPREHENSIVE METABOLIC [id number] 17:13:00* Test Item Value Reference Range Interpretation [...] TOTAL (test code = ALKP) IUnit/L 45-117 [id number] 17:13:00* Test Item Value Reference Range Interpretation Comments MAGNESIUM (test code = MAG) mg/dL 1.8-2.4 CBC W/AUTO [id number] 17:05:00* Test Item Value Reference Range Interpretation [...] DIFF REQUIRED (test code = MDIFF) NO [id number] 16:43:00* Test Item Value Reference Range Interpretation Comments GLUBED (test code = GLUBED) 141 mg/dL 74-106 H [facility] certified renovator [facility] [id number] 12:22:00* Test Item Value Reference Range Interpretation Comments GLUBED (test code = GLUBED) 144 mg/dL 74-106 H [facility] certified renovator machine [facility] [id number] 08:37:00* Test Item Value Reference Range Interpretation Comments GLUBED (test code = GLUBED) 105 mg/dL 74-106 N Performed by certified renovator machine operator at [facility] PLT RESPONSE TO [id number] 08:18:00* Test Item Value Reference Range Interpretation Comments PLT RESPONSE TO PLAVIX (test code = PLAVRES) 299 PRU 182-335 N Values <180 PRU are specific evidence of a P2Y12 inhibitoreffect PLT RESPONSE TO [id number] 08:18:00* Test Item Value Reference Range Interpretation Comments PLT RESPONSE TO PLAVIX (test code = PLAVRES) 299 PRU 182-335 Values <180 PRU are specific evidence of a P2Y12 inhibitoreffect [id number] 20:03:00* Test Item Value Reference Range Interpretation Comments GLUBED (test code = GLUBED) 127 mg/dL 74-106 H Performed by certified renovator machine operator at [facility] [id number] 18:08:00* Test Item Value Reference Range Interpretation Comments GLUBED (test code = GLUBED) 198 mg/dL 74-106 H Performed by certified renovator machine operator at [facility] [id number] 13:12:00* Test Item Value Reference Range Interpretation Comments GLUBED (test code = GLUBED) 152 mg/dL 74-106 H Performed by certified renovator machine operator at [facility] [id number] 08:31:00* Test Item Value Reference Range Interpretation Comments GLUBED (test code = GLUBED) 97 mg/dL 74-106 N Performed by certified renovator machine operator at [facility] [id number] 07:19:00* Test Item Value Reference Range Interpretation Comments CREATININE (test code = CREAT) 0.90 mg/dL 0.7-1.3 N [id number] 05:45:00* Test Item Value Reference Range Interpretation Comments GLUBED (test code = GLUBED) 165 mg/dL 74-106 H Performed by certified renovator machine operator at [facility] [id number] 17:00:00* Test Item Value Reference Range Interpretation Comments GLUBED (test code = GLUBED) 193 mg/dL 74-106 H [facility] certified renovator machine [facility] [id number] 12:17:00* Test Item Value Reference Range Interpretation Comments GLUBED (test code = GLUBED) 157 mg/dL 74-106 H [facility] certified renovator machine [facility] [id number] 08:15:00* Test Item Value Reference Range Interpretation Comments GLUBED (test code = GLUBED) 127 mg/dL 74-106 H Per[facility] certified renovator machine operator [facility] [id number] 20:19:00* Test Item Value Reference Range Interpretation Comments GLUBED (test code = GLUBED) 139 mg/dL 74-106 H Performed by certified renovator machine operator at [facility] [id number] 16:45:00* Test Item Value Reference Range Interpretation Comments GLUBED (test code = GLUBED) 101 mg/dL 74-106 N Performed by certified renovator machine operator at [facility] [id number] 13:08:00* Test Item Value Reference Range Interpretation Comments GLUBED (test code = GLUBED) 106 mg/dL 74-106 N Performed by certified renovator machine operator at [facility] [id number] 08:28:00* Test Item Value Reference Range Interpretation Comments GLUBED (test code = GLUBED) 106 mg/dL 74-106 N Performed by certified renovator machine operator at [facility] [id number] 06:02:00* Test Item Value Reference Range Interpretation Comments GLUBED (test code = GLUBED) 141 mg/dL 74-106 H Performed by certified renovator machine operator at [facility] [id number] 19:05:00* Test Item Value Reference Range Interpretation Comments GLUBED (test code = GLUBED) 120 mg/dL 74-106 H Performed by certified renovator machine operator at [facility] [id number] 17:43:00* Test Item Value Reference Range Interpretation Comments GLUBED (test code = GLUBED) 144 mg/dL 74-106 H Performed by certified renovator machine operator at [facility] [id number] 17:11:00* Test Item Value Reference Range Interpretation Comments GLUBED (test code = GLUBED) 142 mg/dL 74-106 H Performed by certified renovator machine operator at [facility] [id number] 12:44:00* Test Item Value Reference Range Interpretation Comments GLUBED (test code = GLUBED) 142 mg/dL 74-106 H Performed by certified renovator machine operator at [facility] [id number] 18:55:00* Test Item Value Reference Range Interpretation Comments GLUBED (test code = GLUBED) 177 mg/dL 74-106 H Performed by certified renovator machine operator at [facility] [id number] 18:55:00* Test Item Value Reference Range Interpretation Comments GLUBED (test code = GLUBED) 158 mg/dL 74-106 H Performed by certified renovator machine operator at [facility] [id number] 08:45:00* Test Item Value Reference Range Interpretation Comments GLUBED (test code = GLUBED) 126 mg/dL 74-106 H Performed by certified renovator machine operator at [facility] [id number] 21:28:00* Test Item Value Reference Range Interpretation Comments GLUBED (test code = GLUBED) 161 mg/dL 74-106 H Per[facility] certified renovator machine [facility] [id number] 20:33:00* Test Item Value Reference Range Interpretation Comments GLUBED (test code = GLUBED) 164 mg/dL 74-106 H Performed by certified renovator machine operator at [facility] BASIC METABOLIC [id number] 12:36:00* Test Item Value Reference Range Interpretation [...] CA) 8.8 mg/dL 8.5-10.1 N BASIC METABOLIC [id number] 12:24:00* Test Item Value Reference Range Interpretation [...] CALCIUM (test code = CA) mg/dL 8.5-10.1 [id number] 12:10:00* Test Item Value Reference Range Interpretation Comments GLUBED (test code = GLUBED) 203 mg/dL 74-106 H Performed by certified renovator machine operator at [facility] COAGULATION TIME [id number] 09:52:00* Test Item Value Reference Range Interpretation Comments COAGULATION TIME ACTIVATED (test code = ACT) 153 seconds 62.8-88.0 H COAGULATION TIME [id number] 09:52:00* Test Item Value Reference Range Interpretation Comments COAGULATION TIME ACTIVATED (test code = ACT) 218 seconds 62.8-88.0 H [id number] 07:59:00* Test Item Value Reference Range Interpretation Comments GLUBED (test code = GLUBED) 145 mg/dL 74-106 H Performed by certified renovator machine operator at [facility] [id number] 21:21:00* Test Item Value Reference Range Interpretation Comments GLUBED (test code = GLUBED) 96 mg/dL 74-106 N Per[facility] certified renovator machine [facility] COAGULATION TIME [id number] 15:05:00* Test Item Value Reference Range Interpretation Comments COAGULATION TIME ACTIVATED (test code = ACT) 213 seconds 62.8-88.0 H [id number] 12:41:00* Test Item Value Reference Range Interpretation Comments GLUBED (test code = GLUBED) 113 mg/dL 74-106 H Per[facility] certified renovator machine [facility] [id number] 08:52:00* Test Item Value Reference Range Interpretation Comments GLUBED (test code = GLUBED) 125 mg/dL 74-106 H Performed by certified renovator machine operator [facility] BASIC METABOLIC [id number] 07:04:00* Test Item Value Reference Range Interpretation [...] CA) 8.7 mg/dL 8.5-10.1 N BASIC METABOLIC [id number] 07:00:00* Test Item Value Reference Range Interpretation [...] = CA) 8.7 mg/dL 8.5-10.1 N PROTHROMBIN [id number] 05:35:00* Test Item Value Reference Range Interpretation [...] (2.5-3.5) IS PATIENT ON ANTICOAGULANTS? NTHROMBOPLASTIN TIME [id number] 05:35:00* Test Item Value Reference Range Interpretation Comments THROMBOPLASTIN TIME PARTIAL (test code = PTT) 36.2 seconds 25.0-36. 5 N IS PATIENT ON ANTICOAGULANTS? NCBC W/AUTO [id number] 05:35:00* Test Item Value Reference Range Interpretation [...] code = NRBC#) 0.00 K/mm3 0.0-0.1 N [id number] 00:18:00* Test Item Value Reference Range Interpretation Comments GLUBED (test code = GLUBED) 194 mg/dL 74-106 H Performed by certified renovator machine operator at [facility] [id number] 16:26:00* Test Item Value Reference Range Interpretation Comments GLUBED (test code = GLUBED) 158 mg/dL 74-106 H Performed by certified renovator machine operator at [facility] [id number] 11:49:00* Test Item Value Reference Range Interpretation Comments GLUBED (test code = GLUBED) 159 mg/dL 74-106 H Performed by certified renovator machine operator at [facility] [id number] 08:12:00* Test Item Value Reference Range Interpretation Comments GLUBED (test code = GLUBED) 146 mg/dL 74-106 H Performed by certified renovator machine operator at [facility] [id number] 20:41:00* Test Item Value Reference Range Interpretation Comments GLUBED (test code = GLUBED) 193 mg/dL 74-106 H Performed by certified renovator machine operator at [facility] [id number] 19:46:00* Test Item Value Reference Range Interpretation Comments GLUBED (test code = GLUBED) 127 mg/dL 74-106 H Performed by certified renovator machine operator at [facility] [id number] 12:20:00* Test Item Value Reference Range Interpretation Comments GLUBED (test code = GLUBED) 181 mg/dL 74-106 H Performed by certified renovator machine operator at [facility] [id number] 12:13:00* Test Item Value Reference Range Interpretation Comments GLUBED (test code = GLUBED) 138 mg/dL 74-106 H Performed by certified renovator machine operator at [facility] [id number] 20:20:00* Test Item Value Reference Range Interpretation Comments GLUBED (test code = GLUBED) 150 mg/dL 74-106 H Performed by certified renovator machine operator at [facility] [id number] 16:00:00* Test Item Value Reference Range Interpretation Comments GLUBED (test code = GLUBED) 197 mg/dL 74-106 H Performed by certified renovator machine operator at [facility] [id number] 15:49:00* Test Item Value Reference Range Interpretation Comments GLUBED (test code = GLUBED) 87 mg/dL 74-106 N Performed by certified renovator machine operator at [facility] [id number] 10:50:00* Test Item Value Reference Range Interpretation Comments GLUBED (test code = GLUBED) 151 mg/dL 74-106 H Per[facility] certified renovator machine [facility] BASIC METABOLIC [id number] 07:19:00* Test Item Value Reference Range Interpretation [...] CA) 9.0 mg/dL 8.5-10.1 N BASIC METABOLIC [id number] 07:06:00* Test Item Value Reference Range Interpretation [...] code = CA) mg/dL 8.5-10.1 CBC W/AUTO [id number] 06:42:00* Test Item Value Reference Range Interpretation [...] DIFF REQUIRED (test code = MDIFF) NO [id number] 05:41:00* Test Item Value Reference Range Interpretation Comments GLUBED (test code = GLUBED) 153 mg/dL 74-106 H Performed by certified renovator machine operator at [facility] [id number] 16:36:00* Test Item Value Reference Range Interpretation Comments GLUBED (test code = GLUBED) 168 mg/dL 74-106 H [facility] certified renovator machine [facility] [id number] 12:39:00* Test Item Value Reference Range Interpretation Comments GLUBED (test code = GLUBED) 168 mg/dL 74-106 H [facility] certified renovator machine [facility] [id number] 08:18:00* Test Item Value Reference Range Interpretation Comments GLUBED (test code = GLUBED) 117 mg/dL 74-106 H Per[facility] by certified renovator machine operator [facility] [id number] 05:39:00* Test Item Value Reference Range Interpretation Comments GLUBED (test code = GLUBED) 197 mg/dL 74-106 H Performed by certified renovator machine operator at [facility] [id number] 17:22:00* Test Item Value Reference Range Interpretation Comments GLUBED (test code = GLUBED) 126 mg/dL 74-106 H Performed by certified renovator machine operator at [facility] [id number] 12:08:00* Test Item Value Reference Range Interpretation Comments GLUBED (test code = GLUBED) 198 mg/dL 74-106 H Performed by certified renovator machine operator at [facility] [id number] 08:25:00* Test Item Value Reference Range Interpretation Comments GLUBED (test code = GLUBED) 146 mg/dL 74-106 H Performed by certified renovator machine operator at [facility] [id number] 20:42:00* Test Item Value Reference Range Interpretation Comments GLUBED (test code = GLUBED) 123 mg/dL 74-106 H Performed by certified renovator machine operator at [facility] [id number] 20:33:00* Test Item Value Reference Range Interpretation Comments GLUBED (test code = GLUBED) 166 mg/dL 74-106 H Performed by certified renovator machine operator at [facility] [id number] 15:35:00* Test Item Value Reference Range Interpretation Comments GLUBED (test code = GLUBED) 176 mg/dL 74-106 H Performed by certified renovator machine operator at [facility] - XR FOOT 2 VIEWS [id number] 10:28:00 FAX: Tanvi Portillo DPM [phone] [place]: [address] St: [facility] FAX: Maikol Capps [facility] [phone] Name: MARLEN NOLAND [facility] : 1945 Age/S: 74/M [address] [facility] Unit #: [id number] Loc: [address] [address] Phys: Tanvi Murillo DPM Acct: [id number] Dis Date: Status: ADM IN PHONE #: [phone] Exam Date: 04/14/2019 0916 FAX #: [phone] Reason: FOOT WOUND EXAMS: CPT CODE: [id number] XR FO[place] 2 [place] [address] CLINICAL HISTORY: FOOT WOUND TECHNIQUE: PA and [...] Remaining bones are within normal limits. Location: [facility] at 1028 Reported and signed by : Thor Davis MD CC: Tanvi Murillo DPM; Maikol Anand Technologist: CINDY OSHEA JR Trnscrd Date/Time/By: 04/14/2019 (1028) : By: [email or web address] Orig Print D /T: S: 04/14/2019 (1035) PAGE 1 S igned Report [id number] 08:33:00* Test Item Value Reference Range Interpretation Comments GLUBED (test code = GLUBED) 142 mg/dL 74-106 H Performed by certified renovator machine operator at [facility] BASIC METABOLIC [id number] 05:27:00* Test Item Value Reference Range Interpretation [...] CA) 8.7 mg/dL 8.5-10.1 N BASIC METABOLIC [id number] 05:23:00* Test Item Value Reference Range Interpretation [...] CA) 8.7 mg/dL 8.5-10.1 N CBC W/AUTO [id number] 05:03:00* Test Item Value Reference Range Interpretation [...] DIFF REQUIRED (test code = MDIFF) NO [id number] 02:37:00* Test Item Value Reference Range Interpretation Comments GLUBED (test code = GLUBED) 137 mg/dL 74-106 H Performed by certified renovator machine operator at [facility] [id number] 20:56:00* Test Item Value Reference Range Interpretation Comments GLUBED (test code = GLUBED) 184 mg/dL 74-106 H Performed by certified renovator machine operator at [facility] [id number] 20:56:00* Test Item Value Reference Range Interpretation Comments GLUBED (test code = GLUBED) 172 mg/dL 74-106 H Performed by certified renovator machine operator at [facility] [id number] 16:30:00* Test Item Value Reference Range Interpretation Comments GLUBED (test code = GLUBED) 139 mg/dL 74-106 H Performed by certified renovator machine operator at [facility] - CT LOWER EXTRM W/O C [id number] 14:53:00 Name: MARLEN NOLADN [facility] : 1945 Age/S: 74 / M [address] Unit #: [id number] Loc: [place] [address] Phys: Maikol Anand MD Acct: [id number] Dis Date: Status: ADM IN PHONE #: [phone] Exam Date: 04/13/2019 1439 FAX #: [phone] Reason: PAIN EXAMS: CPT CODE: [id number] [place] L[place]TRM W/[place] [address] REASON FOR EXAM: PAIN EXAM ORDER DATE: 04/13/2019 11:31 AM Ordering: Maikol Schrader MD Attending:Maikol Schrader MD Location:[facility] PROCEDURE: - CT LOWER EXTRM W/O C [...] the level of the ankle mortise at 9813 Reported and signed by : Sundar Polk M.D. CC: Maikol Anand Technologist:Gracy Allen RT(R),CT CTDI: DLP: Trn scb Date/Time: 04/13/2019 (7884) JaredVTL Orig Print D/T : S: 04/13/2019 (4135) PAGE 1 Signed Report [id number] 08:01:00* Test Item Value Reference Range Interpretation Comments GLUBED (test code = GLUBED) 145 mg/dL 74-106 H Performed by certified renovator machine operator at [facility] [id number] 20:08:00* Test Item Value Reference Range Interpretation Comments GLUBED (test code = GLUBED) 231 mg/dL 74-106 H Performed by certified renovator machine operator at [facility] [id number] 16:24:00* Test Item Value Reference Range Interpretation Comments GLUBED (test code = GLUBED) 199 mg/dL 74-106 H Performed by certified renovator machine operator at [facility] [id number] 12:32:00* Test Item Value Reference Range Interpretation Comments GLUBED (test code = GLUBED) 201 mg/dL 74-106 H Performed by certified renovator machine operator at [facility] [id number] 09:56:00* Test Item Value Reference Range Interpretation Comments GLUBED (test code = GLUBED) 240 mg/dL 74-106 H Performed by certified renovator machine operator at [facility] [id number] 20:51:00* Test Item Value Reference Range Interpretation Comments GLUBED (test code = GLUBED) 309 mg/dL 74-106 H Performed by certified renovator machine operator at [facility] [id number] 19:12:00* Test Item Value Reference Range Interpretation Comments GLUBED (test code = GLUBED) 124 mg/dL 74-106 H Performed by certified renovator machine operator at [facility] [id number] 13:06:00* Test Item Value Reference Range Interpretation Comments GLUBED (test code = GLUBED) 186 mg/dL 74-106 H Performed by certified renovator machine operator at [facility] [id number] 13:06:00* Test Item Value Reference Range Interpretation Comments GLUBED (test code = GLUBED) 141 mg/dL 74-106 H Performed by certified renovator machine operator at [facility] [id number] 20:43:00* Test Item Value Reference Range Interpretation Comments GLUBED (test code = GLUBED) 195 mg/dL 74-106 H [facility] certified renovator machine [facility] [id number] 16:41:00* Test Item Value Reference Range Interpretation Comments GLUBED (test code = GLUBED) 246 mg/dL 74-106 H Performed by certified renovator machine operator at [facility] [id number] 11:57:00* Test Item Value Reference Range Interpretation Comments GLUBED (test code = GLUBED) 201 mg/dL 74-106 H Performed by certified renovator machine operator at [facility] [id number] 08:26:00* Test Item Value Reference Range Interpretation Comments GLUBED (test code = GLUBED) 127 mg/dL 74-106 H Per[facility] certified renovator machine [facility] [id number] 06:08:00* Test Item Value Reference Range Interpretation Comments GLUBED (test code = GLUBED) 160 mg/dL 74-106 H Performed by certified renovator machine operator at [facility] [id number] 00:36:00* Test Item Value Reference Range Interpretation Comments GLUBED (test code = GLUBED) 111 mg/dL 74-106 H Performed by certified renovator machine operator at [facility] [id number] 20:00:00* Test Item Value Reference Range Interpretation Comments GLUBED (test code = GLUBED) 191 mg/dL 74-106 H Performed by certified renovator machine operator at [facility] [id number] 12:03:00* Test Item Value Reference Range Interpretation Comments GLUBED (test code = GLUBED) 121 mg/dL 74-106 H [facility] certified renovator machine [facility] [id number] 09:30:00* Test Item Value Reference Range Interpretation Comments GLUBED (test code = GLUBED) 131 mg/dL 74-106 H Performed by certified renovator machine operator at [facility] [id number] 08:30:00* Test Item Value Reference Range Interpretation Comments GLUBED (test code = GLUBED) 118 mg/dL 74-106 H [facility] certified renovator machine [facility]~ BASIC METABOLIC [id number] 06:46:00* Test Item Value Reference Range Interpretation [...] CA) 8.7 mg/dL 8.5-10.1 N BASIC METABOLIC [id number] 06:34:00* Test Item Value Reference Range Interpretation [...] code = CA) mg/dL 8.5-10.1 CBC W/AUTO [id number] 06:16:00* Test Item Value Reference Range Interpretation [...] DIFF REQUIRED (test code = MDIFF) NO [id number] 00:15:00* Test Item Value Reference Range Interpretation Comments GLUBED (test code = GLUBED) 239 mg/dL 74-106 H [facility] certified renovator machine [facility] [id number] 16:50:00* Test Item Value Reference Range Interpretation Comments GLUBED (test code = GLUBED) 158 mg/dL 74-106 H Performed by certified renovator machine operator at [facility] [id number] 12:05:00* Test Item Value Reference Range Interpretation Comments GLUBED (test code = GLUBED) 156 mg/dL 74-106 H Performed by certified renovator machine operator at [facility] [id number] 07:49:00* Test Item Value Reference Range Interpretation Comments GLUBED (test code = GLUBED) 150 mg/dL 74-106 H Performed by certified renovator machine operator at [facility] [id number] 07:32:00* Test Item Value Reference Range Interpretation Comments GLUBED (test code = GLUBED) 291 mg/dL 74-106 H Performed by certified renovator machine operator at [facility] CBC W/AUTO [id number] 03:31:00* Test Item Value Reference Range Interpretation [...] NRBC#) 0.00 K/mm3 0.0-0.1 N COMPREHENSIVE METABOLIC [id number] 03:31:00* Test Item Value Reference Range Interpretation [...] reference range due to change in reagent. [id number] 03:31:00* Test Item Value Reference Range Interpretation Comments PHOSPHORUS (test code = PHOS) 3.2 mg/dL 2.5-4.9 N [id number] 03:31:00* Test Item Value Reference Range Interpretation Comments MAGNESIUM (test code = MAG) 2.0 mg/dL 1.8-2.4 N CALCIUM [id number] 03:31:00* Test Item Value Reference Range Interpretation Comments CALCIUM IONIZED (test code = ALIVIA) 1.27 mmol/L 1.12-1.32 N COMPREHENSIVE METABOLIC [id number] 03:24:00* Test Item Value Reference Range Interpretation [...] TOTAL (test code = ALKP) IUnit/L 45-117 [id number] 03:24:00* Test Item Value Reference Range Interpretation Comments PHOSPHORUS (test code = PHOS) mg/dL 2.5-4.9 [id number] 03:24:00* Test Item Value Reference Range Interpretation Comments MAGNESIUM (test code = MAG) mg/dL 1.8-2.4 CALCIUM [id number] 03:24:00* Test Item Value Reference Range Interpretation Comments CALCIUM IONIZED (test code = ALIVIA) 1.27 mmol/L 1.12-1.32 N COMPREHENSIVE METABOLIC [id number] 03:21:00* Test Item Value Reference Range Interpretation [...] TOTAL (test code = ALKP) IUnit/L 45-117 [id number] 03:21:00* Test Item Value Reference Range Interpretation Comments PHOSPHORUS (test code = PHOS) mg/dL 2.5-4.9 [id number] 03:21:00* Test Item Value Reference Range Interpretation Comments MAGNESIUM (test code = MAG) mg/dL 1.8-2.4 CALCIUM [id number] 03:21:00* Test Item Value Reference Range Interpretation Comments CALCIUM IONIZED (test code = ALIVIA) 1.27 mmol/L 1.12-1.32 N [id number] 20:31:00* Test Item Value Reference Range Interpretation Comments GLUBED (test code = GLUBED) 278 mg/dL 74-106 H Performed by certified renovator machine operator at [facility] [id number] 11:51:00* Test Item Value Reference Range Interpretation Comments GLUBED (test code = GLUBED) 274 mg/dL 74-106 H Performed by certified renovator machine operator at [facility] [id number] 07:33:00* Test Item Value Reference Range Interpretation Comments GLUBED (test code = GLUBED) 164 mg/dL 74-106 H Performed by certified renovator machine operator at [facility] BASIC METABOLIC [id number] 03:07:00* Test Item Value Reference Range Interpretation [...] code = CA) 9.6 mg/dL 8.5-10.1 N [id number] 03:07:00* Test Item Value Reference Range Interpretation Comments PHOSPHORUS (test code = PHOS) 3.2 mg/dL 2.5-4.9 N [id number] 03:07:00* Test Item Value Reference Range Interpretation Comments MAGNESIUM (test code = MAG) 2.3 mg/dL 1.8-2.4 N CALCIUM [id number] 03:07:00* Test Item Value Reference Range Interpretation Comments CALCIUM IONIZED (test code = ALIVIA) 1.30 mmol/L 1.12-1.32 N BASIC METABOLIC [id number] 03:04:00* Test Item Value Reference Range Interpretation [...] code = CA) 9.6 mg/dL 8.5-10.1 N [id number] 03:04:00* Test Item Value Reference Range Interpretation Comments PHOSPHORUS (test code = PHOS) 3.2 mg/dL 2.5-4.9 N [id number] 03:04:00* Test Item Value Reference Range Interpretation Comments MAGNESIUM (test code = MAG) 2.3 mg/dL 1.8-2.4 N CALCIUM [id number] 03:04:00* Test Item Value Reference Range Interpretation Comments CALCIUM IONIZED (test code = ALIVIA) mmol/L 1.12-1.32 BASIC METABOLIC [id number] 03:01:00* Test Item Value Reference Range Interpretation [...] CALCIUM (test code = CA) mg/dL 8.5-10.1 [id number] 03:01:00* Test Item Value Reference Range Interpretation Comments PHOSPHORUS (test code = PHOS) mg/dL 2.5-4.9 [id number] 03:01:00* Test Item Value Reference Range Interpretation Comments MAGNESIUM (test code = MAG) mg/dL 1.8-2.4 CALCIUM [id number] 03:01:00* Test Item Value Reference Range Interpretation Comments CALCIUM IONIZED (test code = ALIVIA) mmol/L 1.12-1.32 CBC W/O [id number] 02:30:00* Test Item Value Reference Range Interpretation [...] code = MPV) 9.9 fL 6.7-11.0 N [id number] 20:23:00* Test Item Value Reference Range Interpretation Comments GLUBED (test code = GLUBED) 257 mg/dL 74-106 H Performed by certified renovator machine operator at [facility] [id number] 16:34:00* Test Item Value Reference Range Interpretation Comments GLUBED (test code = GLUBED) 282 mg/dL 74-106 H Performed by certified renovator machine operator at [facility] [id number] 12:10:00* Test Item Value Reference Range Interpretation Comments GLUBED (test code = GLUBED) 220 mg/dL 74-106 H Performed by certified renovator machine operator at [facility] [id number] 07:46:00* Test Item Value Reference Range Interpretation Comments GLUBED (test code = GLUBED) 134 mg/dL 74-106 H Performed by certified renovator machine operator at [facility] BASIC METABOLIC [id number] 06:24:00* Test Item Value Reference Range Interpretation [...] mg/dL 8.5-10.1 N - XR CHEST 1 [id number] 06:15:00 FAX: Ramon Ortega [phone] [place]: St: [facility] FAX: Maikol Capps [facility] [phone] Name: MARLEN NOLAND [facility] : 1945 Age/S: 74/M [address] [facility] Unit #: [id number] Loc: [address] [address] Phys: Ramon Ortega Acct: [id number] Dis Date: Status: ADM IN PHONE #: [phone] Exam Date: 04/06/2019 0540 FAX #: [phone] Reason: updated pulm view EXAMS: CPT CODE: [id number] XR CHEST 1 V 93871 CLINICAL HISTORY: updated pulm view TECHNIQUE: AP chest x-ray COMPARISON: Previous day. IMPRESSION: No significant interval change. Mild bibasilar subsegmental atelectasis. No airspace consolidation or pleural effusion. Elevation of the right hemidiaphragm. Normal heart size. Sternotomy/CABG. LOCATION: at 0615 Reported and signed by: Netta Hidalgo D.O. CC: Ramon Ortega; Maikol Anand Technologist: CINDY OSHEA JR Trnscrd Date/Time/By: 04/06/2019 (0615) : By: [email or web address] Orig Print D/T: S: 04/06/2019 (0664) PAGE 1 Signed Report CBC W/AUTO [id number] 05:44:00* Test Item Value Reference Range Interpretation [...] DIFF REQUIRED (test code = MDIFF) NO [id number] 20:53:00* Test Item Value Reference Range Interpretation Comments GLUBED (test code = GLUBED) 285 mg/dL 74-106 H Performed by certified renovator machine operator at [facility] [id number] 15:47:00* Test Item Value Reference Range Interpretation Comments GLUBED (test code = GLUBED) 207 mg/dL 74-106 H Performed by certified renovator machine operator at [facility] [id number] 11:12:00* Test Item Value Reference Range Interpretation Comments GLUBED (test code = GLUBED) 195 mg/dL 74-106 H Performed by certified renovator machine operator at [facility] [id number] 07:27:00* Test Item Value Reference Range Interpretation Comments GLUBED (test code = GLUBED) 216 mg/dL 74-106 H Performed by certified renovator machine operator at [facility] - XR CHEST 1 [id number] 06:24:00 FAX: Ramon Ortega [phone] [place]: B St: [facility] FAX: Maikol Capps [phone] Name: MARLEN NOLAND [facility] : 1945 Age/S: 74/M [address] Unit #: [id number] Loc: [address] [place] [address] Phys: Ramon Ortega Acct: [id number] Dis Date: Status: ADM IN PHONE #: [phone] Exam Date: 04/05/2019 05 FAX #: [phone] Reason: updated pulm view EXAMS: CPT CODE: [id number] XR CHEST 1 V 02612 CLINICAL HISTORY: Recurrent UTI TECHNIQUE: AP chest x-ray COMPARISON: Previous day. IMPRESSION: No significant interval change. Mild bibasilar subsegmental atelectasis. No airspace consolidation or pleural effusion. Elevation of the right hemidiaphragm. Normal heart size. Sternotomy/CABG. LOCATION: at 0624 Reported and signed by: Netta Hidalgo D.O. CC: Ramon Ortega; Maikol Anand Technologist: CINDY OSHEA JR; Evette Dickson Trnscrd Date/Time/By: 04/05/2019 (623) : By: [email or web address] Orig Print D/T: S: 04/05/2019 (0627) PAGE 1 Signed Report BASIC METABOLIC [id number] 04:10:00* Test Item Value Reference Range Interpretation [...] CA) 9.4 mg/dL 8.5-10.1 N BASIC METABOLIC [id number] 03:53:00* Test Item Value Reference Range Interpretation [...] code = CA) mg/dL 8.5-10.1 CBC W/AUTO [id number] 03:44:00* Test Item Value Reference Range Interpretation [...] code = NRBC#) 0.00 K/mm3 0.0-0.1 N [id number] 21:15:00* Test Item Value Reference Range Interpretation Comments GLUBED (test code = GLUBED) 247 mg/dL 74-106 H Performed by certified renovator machine operator at [facility] [id number] 17:44:00* Test Item Value Reference Range Interpretation Comments GLUBED (test code = GLUBED) 231 mg/dL 74-106 H Performed by certified renovator machine operator at [facility] [id number] 11:12:00* Test Item Value Reference Range Interpretation Comments GLUBED (test code = GLUBED) 196 mg/dL 74-106 H Performed by certified renovator machine operator at [facility] [id number] 11:06:00* Test Item Value Reference Range Interpretation Comments GLUBED (test code = GLUBED) 208 mg/dL 74-106 H Performed by certified renovator machine operator at [facility] - XR CHEST 1 [id number] 06:24:00 FAX: Ramon Ortega [phone] [place]: St: [facility] FAX: Y Maikol Anand [phone] Name: MARLEN NOLAND [facility] : 1945 Age/S: 74/M [address] [facility] Unit #: [id number] Loc: [address] [address] Phys: Ramon Ortega Acct: [id number] Dis Date: Status: ADM IN PHONE #: [phone] Exam Date: 04/04/2019 0536 FAX #: [phone] Reason: updated pulm view EXAMS: CPT CODE: [id number] XR CHEST 1 V 00201 CLINICAL HISTORY: Shortness of breath TECHNIQUE: AP chest x-ray COMPARISON: Previous day. IMPRESSION: Mild bibasilar subsegmental atelectasis, improved on the left. No airspace consolidation or pleural effusion. Elevation of the right hemidiaphragm. Normal heart size. Sternotomy/CABG. LOCATION: at 0624 Reported and signed by: Netta Hidalgo D.O. CC: Ramon Ortega; Maikol Anand Technologist: CINDY Dickson Trnscrd Date/Time/By: 04/04/2019 (0624) : By: [email or web address] Orig Print D/T: S: 04/04/2019 (0778) PAGE 1 Signed Report BASIC METABOLIC [id number] 05:42:00* Test Item Value Reference Range Interpretation [...] CA) 9.3 mg/dL 8.5-10.1 N BASIC METABOLIC [id number] 05:34:00* Test Item Value Reference Range Interpretation [...] code = CA) mg/dL 8.5-10.1 CBC W/AUTO [id number] 05:20:00* Test Item Value Reference Range Interpretation [...] DIFF REQUIRED (test code = MDIFF) NO [id number] 22:08:00* Test Item Value Reference Range Interpretation Comments GLUBED (test code = GLUBED) 178 mg/dL 74-106 H Performed by certified renovator machine operator at [facility] [id number] 15:07:00* Test Item Value Reference Range Interpretation Comments GLUBED (test code = GLUBED) 138 mg/dL 74-106 H Performed by certified renovator machine operator at [facility] BRONCH LAVAGE FLD CELL CT/[id number] 11:39:00* Test Item Value Reference Range Interpretation Comments FLUID SOURCE (test code = SOURCEFL) BRONCHIAL LAVAGE FLUID COLOR (test code = COLFL) RED COLORLESS FLUID APPEARANCE (test code = APPFL) CLOUDY FLUID WBC (test code = WBCFL) 389 per mm3 0-150 H QC performed - Cell count on both sides of chamber agreeswithin 20% ? Y FLUID RBC (test code = RBCFL) 64340 per mm3 0-50 H REVIEWED BY (test code = REVIEW) PATHOLOGIST Reviewed by Dr Juan Manuel MackenzieDEGENERATED CHARGE PROCLUEDS ACCURATE DIFFERENTAL COUNT .PREDOMINANCE OF NEUTROPHILS PRESENT [id number] 11:35:00* Test Item Value Reference Range Interpretation Comments GLUBED (test code = GLUBED) 181 mg/dL 74-106 H Performed by certified renovator machine operator at [facility] [id number] 07:32:00* Test Item Value Reference Range Interpretation Comments GLUBED (test code = GLUBED) 208 mg/dL 74-106 H Performed by certified renovator machine operator at [facility] - XR CHEST 1 [id number] 06:22:00 FAX: Ramon Ortega [phone] [place]: B St: ADM FAX: Maikol Capps [facility] [phone] Name: MARLEN NOLAND [facility] : 1945 Age/S: 74/M [address] Unit #: [id number] Loc: [address] [place] [place] [address] Phys: Ramon Ortega Acct: [id number] Dis Date: Status: ADM IN PHONE #: [phone] Exam Date: 04/03/2019 0550 FAX #: [phone] Reason: updated pulm view EXAMS: CPT CODE: [id number] XR CHEST 1 V 84630 CLINICAL HISTORY: Shortness of breath TECHNIQUE: AP chest x-ray COMPARISON: Previous day. IMPRESSION: No significant interval change. Mild bibasilar subsegmental atelectasis. No airspace consolidation. Elevation of the right hemidiaphragm. Normal heart size. Sternotomy/CABG. ET and NG tubes and removed. LOCATION: LP at 0622 Reported and signed by: Netta Hidalgo D.O. CC: Ramon Ortega; Maikol Anand Technologist: CINDY OSHEA JR; Evette Dickson Trnscrd Date/Time/By: 04/03/2019 (06) : By: [email or web address] Orig Print D/T: S: 04/03/2019 (07) PAGE 1 Signed Report BASIC METABOLIC [id number] 03:17:00* Test Item Value Reference Range Interpretation [...] CA) 8.8 mg/dL 8.5-10.1 N CBC W/AUTO [id number] 03:05:00* Test Item Value Reference Range Interpretation [...] (test code = MDIFF) NO BASIC METABOLIC [id number] 03:02:00* Test Item Value Reference Range Interpretation [...] code = CA) mg/dL 8.5-10.1 ARTERIAL BLOOD [id number] 21:35:00* Test Item Value Reference Range Interpretation [...] = O2CT) 14.7 % vol 18.0-22.0 L [id number] 20:10:00* Test Item Value Reference Range Interpretation Comments GLUBED (test code = GLUBED) 168 mg/dL 74-106 H Performed by certified renovator machine operator at [facility] [id number] 15:01:00* Test Item Value Reference Range Interpretation Comments GLUBED (test code = GLUBED) 152 mg/dL 74-106 H Performed by certified renovator machine operator at [facility] - ABDOMEN [id number] 14:44:00 Name: MARLEN NOLAND [facility] : 1945 Age/S: 74 / M [address] [facility] Unit #: [id number] Loc: [place] [address] Phys: Judith Hidalgo MD Acct: [id number] Dis Date: Status: ADM IN PHONE #: [phone] Exam Date: 04/02/2019 1315 FAX #: [phone] Reason: ACUTE CHOLECYSTITIS EXAMS: CPT CODE: [id number] US ABDOMEN COMPLETE 67058 HISTORY: ACUTE CHOLECYSTITIS TECHNIQUE: Static grayscale and [...] 1 Signed Report (CONTINUED) Name: MARLEN NOLAND [facility] : 1945 Age/S: 74 / M [address] Unit #: [id number] Loc: [place] [address] Phys: Judith Hidalgo MD Acct: [id number] Dis Date: Status: ADM IN PHONE #: [phone] Exam Date: 04/02/2019 1315 FAX #: [phone] Reason: ACUTE CHOLECYSTITIS EXAMS: CPT CODE: [id number] US ABDOMEN COMPLETE 92250 <Continued> CC: Judith Hidalgo MD; Maikol Anand Technologist: HEIDI CASTELLON Trnscb Date/Time: 04/02/2019 (7811) [email or web address] Orig Print D/T: S: 04/03/2019 (4231) Probe: PAGE 2 Signed Report LACTIC [id number] 11:19:00* Test Item Value Reference Range Interpretation Comments LACTIC ACID (test code = LACT) 3.4 mmol/L 0.4-1.9 Results called to [id number] by V.LAB.GP 04/02/19 1119Critical results verified and read back by Nurse? Y [id number] 10:18:00* Test Item Value Reference Range Interpretation Comments GLUBED (test code = GLUBED) 142 mg/dL 74-106 H Performed by certified renovator machine operator at [facility] [id number] 07:31:00* Test Item Value Reference Range Interpretation Comments MAGNESIUM (test code = MAG) 1.9 mg/dL 1.8-2.4 N [id number] 07:26:00* Test Item Value Reference Range Interpretation Comments GLUBED (test code = GLUBED) 102 mg/dL 74-106 N Performed by certified renovator machine operator at [facility] - XR CHEST 1 [id number] 07:00:00 FAX: Ramon Ortega [phone] [place]: St: ADM FAX: Maikol Capps [phone] Name: MARLEN NOLAND [facility] : 1945 Age/S: 74/M [address] Unit #: [id number] [facility] [place] [address] Phys: Ramon Ortega Acct: [id number] Dis Date: Status: ADM IN PHONE #: [phone] Exam Date: 04/02/2019 0505 FAX #: [phone] Reason: updated pulm view EXAMS: CPT CODE: [id number] XR CHEST 1 V 70223 CLINICAL HISTORY: Shortness of breath TECHNIQUE: AP chest x-ray COMPARISON: Previous day. IMPRESSION: Improved right basilar atelectasis. Elevation of the right hemidiaphragm. Left lung is clear. Normal heart size. ET and NG tubes. LOCATION: LP at 0700 Reported and signed by: Netta Hidalgo D.O. CC: Ramon Ortega; Maikol Anand Technologist: DAO IRVIN RT; Marcus Deng RT(R) Trnscrd Date/Time/By: 04/02/2019 (07) : By: [email or web address] Orig Print D/T: S: 04/02/2019 (0703) PAGE 1 Signed Report - CT ABD PELVIS W/CONT 2019-04-02 05:42:00 Name: MARLEN NOLAND [facility] : 1945 Age/S: 74 / M [address] [facility] Unit #: [id number] Loc: [place] [address] Phys: Judith Hidalgo MD Acct: [id number] Dis Date: Status: ADM IN PHONE #: [phone] Exam Date: 04/02/2019 0322 FAX #: [phone] Reason: sepsis EXAMS: CPT CODE: [id number] CT ABD PELVIS W/CONT 23625 EXAM: CT ABDOMEN AND PELVIS WITH IV [...] 1 Signed Report (CONTINUED) Name: MARLEN NOLAND [facility] : 1945 Age/S: 74 / M [address] [facility] Unit #: [id number] Loc: [place] [address] Phys: Kiel Hidalgo MD Acct: [id number] Dis Date: Status: ADM IN PHONE #: [phone] Exam Date: 04/02/2019321 FAX #: Reason: sepsis EXAMS: CPT CODE: [id number] CT ABD PELVIS W/CONT 39996 <Continued> Lymphatics: No enlarged lymph nodes by [...] Malik MD CC: Judith Hidalgo MD; Maikol Anand Technologist:Nav Alvarado, RT(R)(CT) CTDI: DLP: Trnscb Date/Time: 04/02/2019 ( 3442) [email or web address] Orig Print D/T: S: 04/02/2019 (7243) PAGE 2 Signed Report - CTA CHEST FOR [id number] 05:34:00 Name: MARLEN NOLAND [facility] : 1945 Age/S: 74 / M [address] Unit #: [id number] Loc: [place] [address] Phys: Judith Hidalgo MD Acct: [id number] Dis Date: Status: ADM IN PHONE #: [phone] Exam Date: 04/02/2019321 FAX #: [phone] Reason: shortness of breath EXAMS: CPT CODE: [id number] [place] [address] DICTATION LOCATION: H48 HISTORY: Male, 74 years [...] 1 Signed Report (CONTINUED) Name: MARLEN NOLAND [facility] : 1945 Age/S: 74 / M [address] Unit #: [id number] Loc: [place] [address] Phys: Judith Hidalgo MD Acct: [id number] Dis Date: Status: ADM IN PHONE #: [phone] Exam Date: 04/02/2019321 FAX #: [phone] Reason: shortness of breath EXAMS: CPT CODE: [id number] [place] [address] <Continued> pulmonary opacities are seen. 4. Chronic small right pleural effusion with thick rind, unchanged. at 0534 Reported and signed by: Odalys Malik MD CC: Judith Hidalgo MD; Maikol Anand Technologist:Nav Alvarado, RT(R)(CT) CTDI: DLP: Trnscb Date/Time: 04/02/2019 (0534) [email or web address] Orig Print D/T: S: 04/02/2019 (0537) PAGE 2 Signed Report - CT HEAD/BRAIN W/O [id number] 05:05:00 Name: MARLEN NOLAND [facility] : 1945 Age/S: 74 / M [address] Unit #: [id number] Loc: [place] [address] Phys: Tata Enamorado MD Acct: [id number] Di s Date: Status: ADM IN PHONE #: [phone] Exam Date: 04/02/2019321 FAX #: Reason: ALTERED MENTAL STATUS EXAMS: CPT CODE: [id number] CT HEAD/BRAIN W/O CONT 06094 DICTATION LOCATION: H48 HISTORY: Male, 74 years [...] Malik MD CC: Jenn Enamorado MD; Maikol Anand Technologist:Nav Alvarado RT(R)(CT) CTDI: DLP: Trnscb Date/Time: 04/02/2019 (0505) t.[email or web address] Orig Print D/T: S: 04/02/2019 (0505) PAGE 1 Signed Report LACTIC [id number] 04:36:00* Test Item Value Reference Range Interpretation Comments LACTIC ACID (test code = LACT) 4.0 mmol/L 0.4-1.9 HH Results called to [id number] by V.[email or web address] 04/02/19 0434Critical results verified and read back by Nurse? Y BASIC METABOLIC [id number] 04:33:00* Test Item Value Reference Range Interpretation [...] CA) 8.2 mg/dL 8.5-10.1 L BASIC METABOLIC [id number] 04:29:00* Test Item Value Reference Range Interpretation [...] code = CA) mg/dL 8.5-10.1 CBC W/AUTO [id number] 04:18:00* Test Item Value Reference Range Interpretation [...] REQUIRED (test code = MDIFF) NO LACTIC [id number] 01:56:00* Test Item Value Reference Range Interpretation Comments LACTIC ACID (test code = LACT) 3.0 mmol/L 0.4-1.9 HH Results called to [id number] by [email or web address] 04/02/19 0156Critical results verified and read back by Nurse? Y URINALYSIS [id number] 23:23:00* Test Item Value Reference Range Interpretation [...] FEW #/LPF FEW Urine Source? CatheterCOMPREHENSIVE METABOLIC [id number] 22:49:00* Test Item Value Reference Range Interpretation [...] RELATED TO RISK LEVELS ASRECOMMENDED BY THE BESSIE. HEART, LUNG, AND BLOOD INST. HDL CHOLESTEROL (test code = HDL) 46 mg/dL 40-60 N LIPOPROTEIN LDL (test code = LDL) 54 mg/dL 100-129 L Reference Interval: mg/dL mmol/L Optimal <100 <2.6Near/above optimal 100-129 2.6- 3.3Borderline High 130-159 3.4-4.1High 160-189 4.1-4.9Very High >=190 >=4.9========= This LDL result is a direct measurement.========= [id number] 22:49:00* Test Item Value Reference Range Interpretation Comments PHOSPHORUS (test code = PHOS) 2.6 mg/dL 2.5-4.9 N [id number] 22:49:00* Test Item Value Reference Range Interpretation Comments MAGNESIUM (test code = MAG) 1.4 mg/dL 1.8-2.4 L THYROID STIMULATING [id number] 22:49:00* Test Item Value Reference Range Interpretation Comments THYROID STIMULATING HORMONE (test code = TSH) 0.277 uIU/mL 0.36-3.7 4 L TSH REFERENCE RANGES: EUTHYROID: 0.35 - 4.3 mIU/mL HYPO : > 5.5 mIU/mL HYPER : < 0.35 mIU/mL [id number] 22:49:00* Test Item Value Reference Range Interpretation Comments CKMB (test code = CKMBT) 5.8 ng/mL 0-6.0 N [id number] 22:49:00* Test Item Value Reference Range Interpretation Comments TROPONIN-I (test code = TROPI) 0.036 ng/mL 0-0.045 N PROTHROMBIN [id number] 22:48:00* Test Item Value Reference Range Interpretation [...] PATIENT ON ANTICOAGULANTS? YLIST ANTICOAGULANTS HEPARINTHROMBOPLASTIN TIME [id number] 22:48:00* Test Item Value Reference Range Interpretation Comments THROMBOPLASTIN TIME PARTIAL (test code = PTT) 29.6 seconds 25.0-36. 5 N IS PATIENT ON ANTICOAGULANTS? YLIST ANTICOAGULANTS HEPARINLACTIC ACID 2019-04-01 22:48:00* Test Item Value Reference Range Interpretation Comments LACTIC ACID (test code = LACT) 2.5 mmol/L 0.4-1.9 Results called to [id number] by [employer].[facility] 04/01/19 2248Critical results verified and read back by Nurse? Y CBC W/AUTO [id number] 22:46:00* Test Item Value Reference Range Interpretation [...] (test code = MDIFF) NO COMPREHENSIVE METABOLIC [id number] 22:34:00* Test Item Value Reference Range Interpretation [...] LDL (test code = LDL) mg/dL 100-129 [id number] 22:34:00* Test Item Value Reference Range Interpretation Comments PHOSPHORUS (test code = PHOS) mg/dL 2.5-4.9 [id number] 22:34:00* Test Item Value Reference Range Interpretation Comments MAGNESIUM (test code = MAG) mg/dL 1.8-2.4 THYROID STIMULATING MDMWNHE3000-37-64 22:34:00* Test Item Value Reference Range Interpretation Comments THYROID STIMULATING HORMONE (test code = TSH) uIU/mL 0.36-3.7 4 [id number] 22:34:00* Test Item Value Reference Range Interpretation Comments CKMB (test code = CKMBT) ng/mL 0-6.0 ZUWZZFOW-Z7155-09-30 22:34:00* Test Item Value Reference Range Interpretation Comments TROPONIN-I (test code = TROPI) ng/mL 0-0.045 [facility] [place] FLD CELL CT/[id number] 21:46:00* Test Item Value Reference Range Interpretation Comments FLUID SOURCE (test code = SOURCEFL) BRONCHIAL LAVAGE FLUID COLOR (test code = COLFL) RED COLORLESS FLUID APPEARANCE (test code = APPFL) CLOUDY FLUID WBC (test code = WBCFL) 389 per mm3 0-150 H QC performed - Cell count on both sides of chamber agreeswithin 20% ? Y FLUID RBC (test code = RBCFL) 73592 per mm3 0-50 H TOTAL CELLS COUNTED ON DIFF (test code = TOTCELLFL) cells REVIEWED BY (test code = REVIEW) PATHOLOGIST BRONCH LAVAGE FLD CELL CT/[id number] 21:44:00* Test Item Value Reference Range Interpretation Comments FLUID SOURCE (test code = SOURCEFL) FLUID COLOR (test code = COLFL) RED COLORLESS FLUID APPEARANCE (test code = APPFL) CLOUDY FLUID WBC (test code = WBCFL) 389 per mm3 0-150 H QC performed - Cell count on both sides of chamber agreeswithin 20% ? Y FLUID RBC (test code = RBCFL) 18138 per mm3 0-50 H TOTAL CELLS COUNTED ON DIFF (test code = TOTCELLFL) cells REVIEWED BY (test code = REVIEW) PATHOLOGIST [id number] 20:41:00* Test Item Value Reference Range Interpretation Comments GLUBED (test code = GLUBED) 150 mg/dL 74-106 H Performed by certified renovator machine operator at [facility] - XR CHEST 1 [id number] 19:28:00 FAX: Jenn Painter MD [phone] [place]: B St: ADM FAX: Maikol Capps [facility] [phone] Name: MARLEN NOLAND [facility] : 1945 Age/S: 74/M Juan Alberto Cheng Unit #: [id number] Loc: V.S25 [place] [address] Phys: Jenn Enamorado MD Acct: [id number] Dis Date: Status: ADM IN PHONE #: [phone] Exam Date: 04/01/2019 1805 FAX #: [phone] Reason: s/p intubation EXAMS: CPT CODE: [id number] XR CHEST 1 V 75947 CLINICAL HISTORY: s/p intubation, shortness of breath TECHNIQUE: AP chest x-ray COMPARISON: Previous day. IMPRESSION: Interval placement of ET tube 6 cm above the ny. Interval placement of NG tube into the stomach. No other significant change compared to the previous study. LOCATION: at 1928 Reported and signed by: Netta Hidalgo D.O. CC: Jenn Enamorado MD; Maikol Anand Technologist: Marlen Meléndez RT(R) Trnscrd Date/Time/By: 04/01/2019 (1927) : By: [email or web address] Orig Print D/T: S: 04/01/2019 (1930) PAGE 1 Signed Report ARTERIAL BLOOD [id number] 18:51:00* Test Item Value Reference Range Interpretation [...] by Dr Heath 18:51 - 04/01/2019; by [id number] ABG O2 SATURATION (test code = SATA) [...] by Dr Heath 18:51 - 04/01/2019; by [id number] METHEMOGLOBIN (test code = METHGB) 0.5 % 0.0-1.50 N O2 CONTENT (test code = O2CT) 16.4 % vol 18.0-22.0 L ARTERIAL BLOOD [id number] 16:27:00* Test Item Value Reference Range Interpretation [...] back by Govind 16:26 - 04/01/2019; by CESAR METHEMOGLOBIN (test code = METHGB) 0.3 % 0.0-1.50 N O2 CONTENT (test code = O2CT) 15.4 % vol 18.0-22.0 L [id number] 16:18:00* Test Item Value Reference Range Interpretation Comments GLUBED (test code = GLUBED) 124 mg/dL 74-106 H Performed by certified renovator machine operator at [facility] [id number] 11:22:00* Test Item Value Reference Range Interpretation Comments GLUBED (test code = GLUBED) 90 mg/dL 74-106 N Performed by certified renovator machine operator at [facility] B-TYPE NATRIURETIC [id number] 23:12:00* Test Item Value Reference Range Interpretation Comments B-TYPE NATRIURETIC PEPTIDE (test code = BNP) 87.60 pgram/mL 0-100 N DRUGS OF ABUSE SCREEN [id number] 23:11:00* Test Item Value Reference Range Interpretation [...] code = METHAURN) NEGATIVE <300 ng/mL URINALYSIS [id number] 23:03:00* Test Item Value Reference Range Interpretation [...] FEW #/LPF FEW Urine Source? Clean CatchURINALYSIS REEAIEYU2983-30-29 22:58:00* Test Item Value Reference Range Interpretation [...] Urine Source? Clean Catch- XR CHEST 1 [id number] 22:50:00 FAX: Clary Galeana MD [phone] [place]: St: REG Name: MARLEN RODGERS [facility] : [birth year] Age/S: 74/M [address] [facility] Unit #: [id number] Loc: [place] [address] Phys: Clary Galeana MD Acct: [id number] Dis Date: Status: REG ER PHONE #: [phone] Exam Date: 03/31/20192234 FAX #: [phone] Reason: CODE SEPSIS EXAMS: CPT CODE: [id number] XR CHEST 1 V 12709 REASON FOR EXAM: CODE SEPSIS EXAM ORDER [...] Polk M.D. CC: Clary Galeana MD Technologist: RT ADELITA(R) Trnscrd Date/Time/By: 03/31 (5243) : By: Alexandra.VTL Orig Print D/T: S: 03/31/2019 (7858) PAGE 1 Signed Report PROCALCITONIN (PCT)2019-03-31 22:47:00* [...] the patients history. DRUGS OF ABUSE SCREEN [id number] 22:44:00* Test Item Value Reference Range Interpretation [...] METHADONE (test code = METHAURN) <300 ng/mL [id number] 22:42:00* Test Item Value Reference Range Interpretation [...] ANADDITIONAL CHARGE TO THE PATIENT. BASIC METABOLIC [id number] 22:42:00* Test Item Value Reference Range Interpretation [...] CA) 8.5 mg/dL 8.5-10.1 N HEPATIC FUNCTION [id number] 22:42:00* Test Item Value Reference Range Interpretation [...] reference range due to change in reagent. [id number] 22:42:00* Test Item Value Reference Range Interpretation Comments LIPASE (test code = LIP) 55 U/L 73.0-393.0 L [id number]-[id number] 22:42:00* Test Item Value Reference Range Interpretation Comments TROPONIN-I (test code = TROPI) 0.016 ng/mL 0-0.045 N LACTIC [id number] 22:39:00* Test Item Value Reference Range Interpretation Comments LACTIC ACID (test code = LACT) 1.3 mmol/L 0.4-1.9 N PROTHROMBIN [id number] 22:35:00* Test Item Value Reference Range Interpretation [...] (2.5-3.5) IS PATIENT ON ANTICOAGULANTS? NTHROMBOPLASTIN TIME [id number] 22:35:00* Test Item Value Reference Range Interpretation Comments THROMBOPLASTIN TIME PARTIAL (test code = PTT) 31.1 seconds 25.0-36. 5 N IS PATIENT ON ANTICOAGULANTS? NBASIC METABOLIC [id number] 22:32:00* Test Item Value Reference Range Interpretation [...] code = CA) mg/dL 8.5-10.1 HEPATIC FUNCTION [id number] 22:32:00* Test Item Value Reference Range Interpretation [...] TOTAL (test code = ALKP) IUnit/L 45-117 [id number] 22:32:00* Test Item Value Reference Range Interpretation Comments LIPASE (test code = LIP) U/L 73.0-393.0 [id number] 22:32:00* Test Item Value Reference Range Interpretation Comments TROPONIN-I (test code = TROPI) ng/mL 0-0.045 CBC W/AUTO [id number] 22:28:00* Test Item Value Reference Range Interpretation [...] = NRBC#) 0.00 K/mm3 0.0-0.1 N Urine [id number] 07:33:00* Test Item Value Reference Range Interpretation Comments Urine WBC (test code = 5821-4) 6-10 0-5 H [facility] [id number] 07:33:00* Test Item Value Reference Range Interpretation Comments Urine RBC (test code = 93535-2) 0-5 0-5 [facility] Ufhwxndh5184-62-24 07:33:00* Test Item Value Reference Range Interpretation Comments Urine Bacteria (test code = 94752-6) RARE NONE [facility] Epithelial Tnnmp8247-03-64 07:33:00 * Test Item Value Reference Range Interpretation Comments Urine Epithelial Cells (test code = 72717-8) FEW NONE [facility] Ajnjr3316-80-21 07:23:00* Test Item Value Reference Range Interpretation Comments Urine Color (test code = 5778-6) YELLOW YELLOW [facility] Vcxqiby0205-52-97 07:23:00* Test Item Value Reference Range Interpretation Comments Urine Clarity (test code = 95385-5) CLEAR CLEAR [facility] Specific Zrqcsfl2343-22-61 07:23:00 * Test Item Value Reference Range Interpretation Comments Urine Specific [place] (test code = 5811-5) 1.015 1.010-1.02 5 [facility] [id number] 07:23:00* Test Item Value Reference Range Interpretation Comments Urine pH (test code = 33838-3) 6 5-7 [facility] Leukocyte Raydqeej5434-18-06 07:23:00* Test Item Value Reference Range Interpretation Comments Urine Leukocyte Esterase (test code = 79542-4) NEGATIVE NEGATIV E [facility] Bhpchtw4288-41-58 07:23:00* Test Item Value Reference Range Interpretation Comments Urine Nitrite (test code = 48102-1) NEGATIVE NEGATIVE [facility] Sjgbajw5886-99-10 07:23:00* Test Item Value Reference Range Interpretation Comments Urine Protein (test code = 65533-7) NEGATIVE NEGATIVE [facility] Glucose (UA)2019-03-09 07:23:00* Test Item Value Reference Range Interpretation Comments Urine Glucose (UA) (test code = 29000-3) NEGATIVE NEGATIVE [facility] Szdotrb5293-08-02 07:23:00* Test Item Value Reference Range Interpretation Comments Urine Ketones (test code = 85722-1) NEGATIVE NEGATIVE [facility] Winziqttuawe3128-49-46 07:23:00* Test Item Value Reference Range Interpretation Comments Urine Urobilinogen (test code = 36928-1) 0.2 0.2-1 [facility] Pimeylgqa9073-36-57 07:23:00* Test Item Value Reference Range Interpretation Comments Urine Bilirubin (test code = 1977-8) NEGATIVE NEGATIVE [facility] Ewsqd9274-04-97 07:23:00* Test Item Value Reference Range Interpretation Comments Urine Blood (test code = 84781-1) NEGATIVE NEGATIVE [facility] CenterCreatine Kinase [id number] 06:43:00* Test Item Value Reference Range Interpretation Comments Creatine Kinase MB (test code = 97322-8) 3.30 0-5.0 [facility] CenterTroponin [id number] 06:43:00* Test Item Value Reference Range Interpretation Comments Troponin I (test code = AOB3346) 0.049 0-0.300 [facility] CenterCreatine Vgmuqz6879-71-70 06:38:00* Test Item Value Reference Range Interpretation Comments Creatine Kinase (test code = 2157-6) 45 30-200 [facility] Tqcjq2193-41-69 06:09:00* Test Item Value Reference Range Interpretation Comments Sodium Level (test code = 2951-2) 136 136-145 [facility] CenterPotassium Ugtxk8939-85-44 06:09:00* Test Item Value Reference Range Interpretation Comments Potassium Level (test code = 2823-3) 4.1 3.5-5.1 [facility] CenterChloride Aicih8911-52-39 06:09:00* Test Item Value Reference Range Interpretation Comments Chloride Level (test code = 2075-0) 100 98-107 [facility] CenterCarbon Dioxide Gayjv3635-24-70 06:09:00* Test Item Value Reference Range Interpretation Comments Carbon Dioxide Level (test code = 2028-9) 29 22-29 [facility] CenterAnion Eto1752-28-06 06:09:00* Test Item Value Reference Range Interpretation Comments Anion Gap (test code = 77790-6) 11.1 8-16 [facility] CenterBlood Urea Nykrvspn6109-23-51 06:09:00* Test Item Value Reference Range Interpretation Comments Blood Urea Nitrogen (test code = 3094-0) 12 7-26 [facility] CenterCreatinine2019-11-07 06:09:00* Test Item Value Reference Range Interpretation Comments Creatinine (test code = 2160-0) 0.71 0.72-1.25 L [facility] CenterBUN/Creatinine Nlxgp3222-90-32 06:09:00* Test Item Value Reference Range Interpretation Comments BUN/Creatinine Ratio (test code = 3097-3) 17 6-25 [facility] CenterEstimat Glomerular Filtration Rate 2019-03-09 06:09:00* Test Item Value Reference Range Interpretation Comments Estimat Glomerular Filtration Rate (test code = 324001096) > 60 >60 Ranges were taken from the National Kidney Disease Education Program and the [facility] [employer] literature.Reference ranges:60 or greater: Vvuuda02-97 ( for 3 consecutive months): Chronic kidney disease 15 or less: Kidney failureSaint Mark's Medical CenterGlucose Mxdjf3580-29-94 06:09:00* Test Item Value Reference Range Interpretation Comments Glucose Level (test code = NKB8068) 104 74-118 [facility] CenterCalcium Qsmql0147-93-16 06:09:00* Test Item Value Reference Range Interpretation Comments Calcium Level (test code = 23127-0) 9.1 8.4-10.2 [facility] CenterTotal Asaygpggp8788-69-30 06:09:00* Test Item Value Reference Range Interpretation Comments Total Bilirubin (test code = 1975-2) 0.2 0.2-1.2 [facility] CenterAspartate Amino Transf (AST/SGOT) 2019-03-09 06:09:00* Test Item Value Reference Range Interpretation Comments Aspartate Amino Transf (AST/SGOT) (test code = Aspartate Amino Transf (AST/SGOT)) 18 5-34 [facility] CenterAlanine Aminotransferase (ALT/SGPT) 2019-03-09 06:09:00* Test Item Value Reference Range Interpretation Comments Alanine Aminotransferase (ALT/SGPT) (test code = 1742-6) 9 0-55 [facility] CenterTotal Xzlhdvi9324-43-86 06:09:00* Test Item Value Reference Range Interpretation Comments Total Protein (test code = 2885-2) 6.5 6.5-8.1 [facility] CenterAlbumin2019-11-07 06:09:00* Test Item Value Reference Range Interpretation Comments Albumin (test code = 1751-7) 3.2 3.5-5.0 L [facility] CenterGlobulin2019-11-07 06:09:00* Test Item Value Reference Range Interpretation Comments Globulin (test code = 96716-9) 3.3 2.3-3.5 [facility] CenterAlbumin/Globulin Bxnzd3452-46-19 06:09:00 * Test Item Value Reference Range Interpretation Comments Albumin/Globulin Ratio (test code = 1759-0) 1.0 0.8-2.0 [facility] CenterAlkaline Jrvkrhlzsrd5950-55-43 06:09:00* Test Item Value Reference Range Interpretation Comments Alkaline Phosphatase (test code = 6768-6) 68 40-150 [facility] CenterWhite Blood Pnnwv5831-45-81 05:55:00* Test Item Value Reference Range Interpretation Comments White Blood Count (test code = 6690-2) 7.66 4.8-10.8 [facility] CenterRed Blood Tawvl3526-53-54 05:55:00* Test Item Value Reference Range Interpretation Comments Red Blood Count (test code = 789-8) 3.73 4.3-5.7 L [facility] CenterHemoglobin2019-11-07 05:55:00* Test Item Value Reference Range Interpretation Comments Hemoglobin (test code = 25761-9) 10.8 14.0-18.0 L [facility] CenterHematocrit2019-11-07 05:55:00* Test Item Value Reference Range Interpretation Comments Hematocrit (test code = 4544-3) 32.8 38.2-49.6 L [facility] CenterMean Corpuscular Mfwzcj4465-15-53 05:55:00* Test Item Value Reference Range Interpretation Comments Mean Corpuscular Volume (test code = 787-2) 87.9 81-99 [facility] CenterMean Corpuscular Qfjbuskjzm3279-59-75 05:55:00* Test Item Value Reference Range Interpretation Comments Mean Corpuscular Hemoglobin (test code = 785-6) 29.0 28-32 [facility] CenterMean Corpuscular Hemoglobin Concent 2019-03-09 05:55:00* Test Item Value Reference Range Interpretation Comments Mean Corpuscular Hemoglobin Concent (test code = 786-4) 32.9 31-35 [facility] CenterRed Cell Distribution Cqies5646-32-45 05:55:00* Test Item Value Reference Range Interpretation Comments Red Cell Distribution Width (test code = 42800-2) 15.0 11.7 -14.4 H [facility] CenterPlatelet Etbdn5031-05-82 05:55:00* Test Item Value Reference Range Interpretation Comments Platelet Count (test code = 777-3) 227 140-360 [facility] CenterNeutrophils (%) (Auto)2019-03-09 05:55:00 * Test Item Value Reference Range Interpretation Comments Neutrophils (%) (Auto) (test code = 41526-3) 58.9 38.7-80.0 [facility] CenterLymphocytes (%) (Auto)2019-03-09 05:55:00 * Test Item Value Reference Range Interpretation Comments Lymphocytes (%) (Auto) (test code = 736-9) 29.2 18.0-39.1 [facility] CenterMonocytes (%) (Auto)2019-03-09 05:55:00* Test Item Value Reference Range Interpretation Comments Monocytes (%) (Auto) (test code = 5905-5) 7.7 4.4-11.3 [facility] CenterEosinophils (%) (Auto)2019-03-09 05:55:00 * Test Item Value Reference Range Interpretation Comments Eosinophils (%) (Auto) (test code = 713-8) 3.4 0.0-6.0 [facility] CenterBasophils (%) (Auto)2019-03-09 05:55:00* Test Item Value Reference Range Interpretation Comments Basophils (%) (Auto) (test code = 706-2) 0.5 0.0-1.0 [facility] CenterIM GRANULOCYTES %2019-03-09 05:55:00* Test Item Value Reference Range Interpretation Comments IM GRANULOCYTES % (test code = IM GRANULOCYTES %) 0.3 0.0- 1.0 [facility] CenterNeutrophils # (Auto)2019-03-09 05:55:00* Test Item Value Reference Range Interpretation Comments Neutrophils # (Auto) (test code = 751-8) 4.5 2.1-6.9 [facility] CenterLymphocytes # (Auto)2019-03-09 05:55:00* Test Item Value Reference Range Interpretation Comments Lymphocytes # (Auto) (test code = 04521-4) 2.2 1.0-3.2 [facility] CenterMonocytes # (Auto)2019-03-09 05:55:00* Test Item Value Reference Range Interpretation Comments Monocytes # (Auto) (test code = 742-7) 0.6 0.2-0.8 [facility] CenterEosinophils # (Auto)2019-03-09 05:55:00* Test Item Value Reference Range Interpretation Comments Eosinophils # (Auto) (test code = 711-2) 0.3 0.0-0.4 [facility] CenterBasophils # (Auto)2019-03-09 05:55:00* Test Item Value Reference Range Interpretation Comments Basophils # (Auto) (test code = 704-7) 0.0 0.0-0.1 [facility] CenterAbsolute Immature Granulocyte (auto 2019-03-09 05:55:00* Test Item Value Reference Range Interpretation Comments Absolute Immature Granulocyte (auto (troy t code = Absolute Immature Granulocyte (auto) 0.02 0-0.1 [facility] CenterBlood Culture - Routine (Left Venipuncture)2019-03-08 19:00:00* Test Item Value Reference Range Interpretation Comments Result (test code = 6463-4) No growth in 5 days [facility] ZQYRHIG6601-94-89 19:00:00* Test Item Value Reference Range Interpretation Comments CULTURE (BEAKER) (test code = 1095) No growth in 5 days BLOOD TFBUGTZ1816-83-50 19:00:00* Test Item Value Reference Range Interpretation Comments CULTURE (BEAKER) (test code = 1095) No growth in 5 days Bedside Ovllvil9442-91-32 17:29:00* Test Item Value Reference Range Interpretation Comments Bedside Glucose (test code = 50708-8) 220 70-120 H Meter ID: [id number] [facility]P LUMBAR, COMPLETE MIN 8CN2199-29-26 15:12:00 [facility] [address] [place] [address] Patient Name: MARLEN NOLAND MR #: [id number] : 1945 Age/Sex: 73/M Req #: [id number] Adm Physician: SUZIE LEAVITT MD Ordered by: AMIRAH LECHUGA MD Report #: [id number] Location: [facility] Room/Bed: [place] [address] Procedure: 1106-004 9 DX/SP LUMBAR, COMPLETE MIN [...] No acute osseou s injury. Signed by: Yolanda Aguilar MD on 03/08/2019 3:14 PM Dictated By: YOLANDA AGUILAR MD 8544 Tra nscribed By: CLARA on 03/08/19 5135 COPY TO: AMIRAH LECHUGA MD PELVIS AP 1-2 PWBFQ0097-32-80 15:11:00 [place] [address] [place] [address] Patient Name: MARLEN NOLAND MR #: [id number] : 1945 Age/Sex: 73/M Req #: [id number] Adm Physician: SUZIE LEAVITT MD Ordered by: AMIRAH LECHUGA MD Report #: [id number] Location: [facility] Room/Bed: [place] [address] Procedure: 1106-005 0 DX/PELVIS AP 1-2 VIEWS [...] changes of both hip joints. Signed by: Yolanda Aguilar MD on 03/08/2019 3:12 PM Dictated By: YOLANDA AGUILAR MD 11 Transcribed By: Jose PRICE on 03/08/19 151 COPY TO: AMIRAH LECHUGA MD CT BRAIN WO 2019-03-08 14:10:00 [place] [address] Patient Name: MARLEN NOLAND MR #: [id number] : 1945 Age/Sex: 73/M Req #: [id number] Adm Physician: Ordered by: AMIRAH LECHUGA MD Report #: [id number] Location: Room/Bed: Procedure: 1959-9038 CT/CT BRAIN WO Exam Date: 03/08/19 Exam [...] chronic microvascular ischemic change. Signed by: Dr. Magrie Regalado M.D. on 03/08/2019 2:11 PM Dictated By: MARGIE DURAND MD 10 COPY TO: JERED LECHUGA MD B-Type Natriuretic Rfvhtgs5465-21-38 13:35:00* Test Item Value Reference Range Interpretation Comments B-Type Natriuretic Peptide (test code = 57569-9) 17.7 0-100 [facility] CenterProthrombin Iwsi3910-93-89 13:34:00* Test Item Value Reference Range Interpretation Comments Prothrombin Time (test code = 5902-2) 12.1 11.9-14.5 [facility] CenterProthromb Time International Ratio 2019-03-08 13:34:00* Test Item Value Reference Range Interpretation Comments Prothromb Time International Ratio (test code = 6301-6) 0.85 Oral Anticoagulant Therapy INR Values:1. Low Intensity Therapy 1.5 - 2.02 . Moderate Intensity Therapy 2.0 - 3.03. High Intensity Therapy(1) 2.5 - 3. 54. High Intensity Therapy(2) 3.0 - 4.05. Panic Value INR > 5.0 [facility] CenterActivated Partial Thromboplast Time 2019-03-08 13:34:00* Test Item Value Reference Range Interpretation Comments Activated Partial Thromboplast Time (test code = 80404-1) 20.1 23.8-35.5 L [facility] CenterCHEST SINGLE (PORTABLE)2019-03-08 13:03:00 [place] [address] Patient Name: MARLEN NOLAND MR #: [id number] : 1945 Age/Sex: 73/M Req #: [id number] Adm Physician: Ordered by: AMIRAH LECHUGA MD Report #: [id number] Location: Room/Bed: Procedure: [id number] DX/CHEST SINGLE (PORTABLE) Exam Date: 03/08/19 Exam [...] lung base, likely subsegmental atelectasis. Signed by: Yolanda Aguilar MD on 03/08/2019 1:10 PM Dictated By: YOLANDA AGUILAR MD Electronically Si gned By: YOLANDA AGUILAR MD on 03/08/19 1310 Transcribed By: CLARA on 03/08/19 131 0 COPY TO: AMIRAH LECHUGA MD Prothrombin time (PT) in platelet poor plasma by coagulation yzbft1654-49-96 11:30:00* Test Item Value Reference Range Interpretation Comments Prothrombin Time (test code = 5902-2) 12.1 11.9-14.5 [facility] CenterINR in Platelet poor plasma by Coagulation athdx6313-98-08 11:30:00* Test Item Value Reference Range Interpretation Comments Prothromb Time International Ratio (test code = 6301-6) 0.85 Oral Anticoagulant Therapy INR Values:1. Low Intensity Therapy 1.5 - 2.02 . Moderate Intensity Therapy 2.0 - 3.03. High Intensity Therapy(1) 2.5 - 3. 54. High Intensity Therapy(2) 3.0 - 4.05. Panic Value INR > 5.0 [facility] CenterActivated partial thromboplastin time (aPTT) in platelet poor plasma by coagulation lsoev7758-55-39 11:30:00* Test Item Value Reference Range Interpretation Comments Activated Partial Thromboplast Time (test code = 41490-3) 20.1 23.8-35.5 [facility] CenterProthrombin time (PT) in platelet poor plasma by coagulation cqupj2058-32-02 11:30:00* Test Item Value Reference Range Interpretation Comments Prothrombin Time (test code = 5902-2) 12.1 11.9-14.5 [facility] CenterINR in Platelet poor plasma by Coagulation qjlrn3181-50-97 11:30:00* Test Item Value Reference Range Interpretation Comments Prothromb Time International Ratio (test code = 6301-6) 0.85 Oral Anticoagulant Therapy INR Values:1. Low Intensity Therapy 1.5 - 2.02 . Moderate Intensity Therapy 2.0 - 3.03. High Intensity Therapy(1) 2.5 - 3. 54. High Intensity Therapy(2) 3.0 - 4.05. Panic Value INR > 5.0 [facility]oplast[facility] (aPTT) in platelet poor plasma by coagulation [id number] 11:30:00* Test Item Value Reference Range Interpretation Comments Activated Partial Thromboplast Time (test code = 35280-3) 20.1 23.8-35.5 [facility]Glucose [id number] 18:54:00* Test Item Value Reference Range Interpretation Comments POC-Glucose Meter (test code = 1538) 140 mg/dL 70-110 H : TESTED AT [address], [address]: Classified Advertising Clerk/Sales Consultant ID = [id number] for Edilson Hong Lab Interpretation (test code = 42655-3) [facility]normal [facility] [id number] 18:54:00* Test Item Value Reference Range Interpretation Comments POC-GLUCOSE METER (BEAKER) (test code = 1538) 140 mg/dL 70-110 H : TESTED AT [address], [address]: Classified Advertising Clerk/Sales Consultant ID = [id number] for Edilson Hong Basic Metabolic [id number] 08:07:00* Test Item Value Reference Range Interpretation Comments Sodium (test code = 2951-2) 135 meq/L 136-145 L Potassium (test code = 2823-3) 4.6 meq/L 3.5-5.1 Chloride (test code = 2075-0) 101 meq/L 98-107 CO2 (test code = 8-9) 27 meq/L 22-29 BUN (test code = 3094-0) 11 mg/dL 7-21 Creatinine (test code = 2160-0) 0.71 mg/dL 0.57-1.25 Glucose (test code = 2345-7) 120 mg/dL 70-105 H Calcium (test code = 17285-2) 9.0 mg/dL 8.4-10.2 EGFR (test code = 10110-8) 109 mL/min/1.73 sq m ESTIMATED GFR IS NOT ACCURATE CREATININE CLEARANCE IN PREDICTING GLOMERULAR FILTRATION RATE. ESTIMATED GFR IS NOT APPLICABLE FOR DIALYSIS PATIENTS. Lab Interpretation (test code = 41484-4) Abnormal [facility]OLIC [id number] 08:07:00* Test Item Value Reference Range Interpretation [...] IS NOT APPLICABLE FOR DIALYSIS PATIENTS. CBC with platelet count + automated [id number] 06:21:00* Test Item Value Reference Range Interpretation Comments WBC (test code = 6690-2) 6.5 3.5- 10.5 K/L RBC (test code = 789-8) 3.61 4.63- 6.08 M/L L MCHC (test code = 786-4) 32.3 32.3- 36.5 GM/DL L Hematocrit (test code = 4544-3) 32.2 % 40.1-51 L MCV (test code = 787-2) 89.2 fL 79-92.2 MCH (test code = 785-6) 28.8 pg 25.7-32.2 RDW (test code = 788-0) 15.1 % 11.6-14.4 H Platelets (test code = 777-3) 229 150- 450 K/CU MM MPV (test code = 03637-8) 10.0 fL 9.4-12.4 nRBC (test code = 413) 0 0- 0 /100 WBC % Neutros (test code = 429) 50 % % Lymphs (test code = 430) 36 % % Monos (test code = 431) 8 % % Eos (test code = 432) 5 % % Baso (test code = 437) 1 % # Neutros (test code = 670) 3.29 1.78- 5.38 K/L # Lymphs (test code = 414) 2.34 1.32- 3.57 K/L # Monos (test code = 415) 0.49 0.30- 0.82 K/L # Eos (test code = 416) 0.34 0.04- 0.54 K/L # Baso (test code = 417) 0.04 0.01- 0.08 K/L Immature Granulocytes-Relative (test code = 2801) 1 % 0-1 Lab Interpretation (test code = 53220-6) Abnormal [facility] W/PLT COUNT & AUTO [id number] 06:21:00* Test Item Value Reference Range Interpretation [...] code = 2801) 1 % 0-1 POCT-GLUCOSE [id number] 21:22:00* Test Item Value Reference Range Interpretation Comments POC-GLUCOSE METER (BEAKER) (test code = 1538) 164 mg/dL 70-110 H : TESTED AT [facility] [address] [facility], [address]: Classified Advertising Clerk/Sales Consultant ID = [id number] for DESTINI FRIAS POCT-GLUCOSE [id number] 18:14:00* Test Item Value Reference Range Interpretation Comments POC-GLUCOSE METER (BEAKER) (test code = 1538) 127 mg/dL 70-110 H : TESTED AT [facility] [address] [facility], [address]: Classified Advertising Clerk/Sales Consultant ID = [id number] for STACEY MCCRACKEN POCT-GLUCOSE [id number] 13:00:00* Test Item Value Reference Range Interpretation Comments POC-GLUCOSE METER (BEAKER) (test code = 1538) 93 mg/dL 70-110 : TESTED AT [facility] [address] [facility], [address]: Classified Advertising Clerk/Sales Consultant ID = [id number] for Edilson Hong POCT-GLUCOSE [id number] 08:04:00* Test Item Value Reference Range Interpretation Comments POC-GLUCOSE METER (BEAKER) (test code = 1538) 122 mg/dL 70-110 H : TESTED AT [facility] [address] [facility], [address]: Classified Advertising Clerk/Sales Consultant ID = [id number] for Edilson Hong ECG 12 [id number] 07:53:43Interface, External Ris In - 03/04/2019 7:53 AM CDTVentricular Rate 93 BPMAtrial Rate 93 BPMP-R Interval 166 msQRS Duration 134 msQ-T Interval 384 msQTC Calculation(Bazett) 477 msP Moran 15 degreesR Moran 70 degreesT Moran 42 degreesNormal sinus rhythmRight bundle branch blockNonspecific ST abnormalityProlonged QTAbnormal ECGWhen compared with ECG of 10-JUN-2018 12:59,T wave inversion now evident in Anterior leadsConfirmed by Andrea SRINIVASAN, SCOTTY ([id number]) on 03/04/2019 7:53:41 [facility] HospitalHepatic function [id number] 03:04:00* Test Item Value Reference Range Interpretation Comments Protein, Total (test code = 2885-2) 7.0 6.0- 8.3 gm/dL Albumin (test code = 04706-0) 3.7 g/dL 3.5-5 Total Bilirubin (test code = 1974-) 0.2 mg/dL 0.2-1.2 Bilirubin, Direct (test code = 1967-7) 0.1 mg/dL 0.1-0.5 Alkaline Phosphatase (test code = 6768-6) 79 U/L 40-150 AST (test code = 1920-8) 11 U/L 5-34 ALT (test code = 1742-6) 6 U/L 6-55 Lab Interpretation (test code = 59007-0) Normal [facility] HospitalHEPATIC FUNCTION [id number] 03:04:00* Test Item Value Reference Range Interpretation [...] = 347) 6 U/L 6-55 BASIC METABOLIC [id number] 03:04:00* Test Item Value Reference Range Interpretation [...] DIALYSIS PATIENTS. CBC W/PLT COUNT & AUTO [id number] 02:46:00* Test Item Value Reference Range Interpretation [...] code = 2801) 0 % 0-1 POCT-GLUCOSE [id number] 21:42:00* Test Item Value Reference Range Interpretation Comments POC-GLUCOSE METER (BEAKER) (test code = 1538) 193 mg/dL 70-110 H : TESTED AT [facility] [address] [facility], [address]: Classified Advertising Clerk/Sales Consultant ID = [id number] for DESTINI FRIAS POCT-GLUCOSE [id number] 17:35:00* Test Item Value Reference Range Interpretation Comments POC-GLUCOSE METER (BEAKER) (test code = 1538) 70 mg/dL 70-110 : TESTED AT [facility] [address] [facility], [address]: Classified Advertising Clerk/Sales Consultant ID = [id number] for Edilson Hong Rapid drug screen, [id number] 15:07:00* Test Item Value Reference Range Interpretation Comments Barbiturate Screen (test code = 18538-9) Negative Negative Benzodiazepine Screen (test code = 43446-4) Positive Negative A Cocaine (Metab.) Screen (test code = 3397-7) Negative Negative Methadone Screen (test code = 60922-7) Negative Negative Opiate Screen (test code = 76752-6) Positive Negative A Cannabinoid Screen (test code = 08313-2) Negative Negative Amph/Methamph Screen (test code = 24271-8) Negative Negative Phencyclidine Screen (test code = 59751-5) Negative Negative TITO (test code = TITO) DRUG CUTOFF C ONC.Cocaine 300 ng/mL Cannabinoid 50 ng/mLBenzodiazepine 200 ng/mLBarbiturate 200 ng/mLPhencyclidine 25 ng/mLOpiate 300 ng/mLMethadone 300 ng/mLAmphetamine/ 1000 ng/mL Methamphetamine This assay provides an unconfirmed qualitative test result for the clinical management of patients in emergency situations. Chain of custody not maintained. Some mhvl-ryj-pqagobh medications, as well as adulterants, may cause inaccurate results. Clinical correlation should be applied. A more comprehensive drug screen or confirmation of a detected drug may be performed upon request. Lab Interpretation (test code = 34982-3) Abnormal [facility] Hospital[facility] DR[facility] SCREEN, [id number] 15:07:00* Test Item Value Reference Range Interpretation [...] situations. Chain of custody not maintained. Some xdfl-viw-pwlugvx me dications, as well as adulterants, may cause inaccurate results. Clinical correl ation should be applied. A more comprehensive drug screen or confirmation of a d etected drug may be performed upon request.Urinalysis w/Microscopic + Reflex to [id number] 14:46:00* Test Item Value Reference Range Interpretation Comments Color, UA (test code = 5778-6) Light Yellow Clarity, UA (test code = 5767-9) Hazy Specific Douds, UA (test code = 5811-5) 1.010 1.001-1.035 pH, UA (test code = 5803-2) 5.5 5.0-8.0 Protein, UA (test code = 69151-7) Negative Negative Glucose, UA (test code = 365) Negative Negative Ketones, UA (test code = 2514-8) Negative Negative Bilirubin, UA (test code = 17792-8) Negative Negative Blood, UA (test code = 10371-7) Negative Negative Nitrite, UA (test code = 5802-4) Positive Negative A Leukocytes, UA (test code = 5799-2) Large Negative A Urobilinogen, UA (test code = 91506-9) 0.2 mg/dL 0.2-1 RBC, UA (test code = 01169-5) 4 /HPF WBC, UA (test code = 5821-4) 65 /HPF Specimen Source (test code = 2795) Lab Interpretation (test code = 52203-5) Abnormal [facility]/ REFLEX URINE [id number] 14:46:00* Test Item Value Reference Range Interpretation [...] 65 /HPF SOURCE(BEAKER) (test code = 2795) Troponin [id number] 13:23:00* Test Item Value Reference Range Interpretation Comments Troponin I (test code = 51009-1) <0.01 0-0.03 TITO (test code = TITO) Troponin I (TnI) levels must be interpreted in the context of the presenting symptoms and the clinical findings. Elevated TnI levels indicate myocardial damage, but are not specific for ischemic heart disease. Elevated TnI levels are seen in patients with other cardiac conditions (including myocarditis and congestive heart failure), and slight TnI elevations occur in patients with other conditions, including sepsis, renal failure, acidosis, acute neurological disease, and persistent tachyarrhythmia. Lab Interpretation (test code = 59869-5) Normal [facility] ValleyTROPONIN [id number] 13:23:00* Test Item Value Reference Range Interpretation [...] acidosis, acute neurological disease, and per sistent tachyarrhythmia.[id number] 13:16:00* Test Item Value Reference Range Interpretation Comments Magnesium (test code = 66494-8) 1.4 mg/dL 1.6-2.6 L Lab Interpretation (test code = 83011-6) Abnormal [facility]IUM2019-11-01 13:16:00* Test Item Value Reference Range Interpretation Comments MAGNESIUM (BEAKER) (test code = 627) 1.4 mg/dL 1.6-2.6 L BASIC METABOLIC [id number] 13:16:00* Test Item Value Reference Range Interpretation [...] = 652) 117 mg/dL 70-105 H CALCIUM (BEAKER) (test code = 697) 9.3 mg/dL 8.4-10.2 EGFR (BEAKER) (test code = 1092) 95 mL/min/1.73 sq m ESTIMATED GFR IS NOT ACCURATE CREATININE CLEARANCE IN PREDICTING GLOMERULAR FILTRATION RATE. ESTIMATED GFR IS NOT APPLICABLE FOR DIALYSIS PATIENTS. CT, BRAIN, WITHOUT [id number] 12:54:00Reason for exam:->headacheWhat is the patient's sedation [...] recommended for further characterization. Signed: Percy Bryan MDReport Verified Date/Time : 03/03/2019 12:54:53 Electronically signed by: MD yuliet IVORY 03/03/2019 12:[address] brain without IV [id number] 12:54:00Interface, External Ris In - 03/03/2019 12:[address], BRAIN, WITHOUT CONTRAST INDICATION: headacheWEAKNESS [...] Intracranial: Exam is degraded by motion. Generalized cereb ral atrophy with ex vacuo dilatation of the ventricular system proportionate to sulci. Scattered foci of hypoattenuation within the periventricular and subcorti kay white matter are a nonspecific finding commonly attributed to chronic small vessel ischemic disease. No intracranial hemorrhage or abnormal extra-axial jhonny ection. No evidence of acute territorial infarct. No mass effect. No hydrocephal us. Osseous structures: No fracture. No suspicious lesion. Paranasal sinuses and mastoid air cells: No evidence of sinusitis. Mastoids are clear. Orbital conten ts: Globes are intact. IMPRESSION: Motion degraded exam. No acute intracranial h emorrhage or territorial infarct. If there is persistent clinical concern for in tracranial pathology, MR examination is recommended for further characterization . Signed: Percy Bryan Verified Date/Time: 03/03/2019 12:54:53 Alesia ctronically signed by: PERCY BRYAN MD on 03/03/2019 12:54 PM [facility]-type Natriuretic Factor (BNP)2019-03-03 12:48:00* Test Item Value Reference Range Interpretation Comments BNP (test code = 71442-1) 60 pg/mL 0-100 Lab Interpretation (test code = 93470-7) Normal [facility]-TYPE NATRIURETIC FACTOR (BNP)2019-03-03 12:48:00 * Test Item Value Reference Range Interpretation Comments B-TYPE NATRIURETIC PEPTIDE (BEAKER) (test code = 700) 60 pg/mL 0-100 RAD, CHEST, 1 VIEW, NON [id number] 12:37:00Reason for exam:->GENERALIZED WEAKNESS, NOT ASSOCIATED WITH EXTREMITIESFINAL REPORT INDICATION: GENERALIZED WEAKNESS, NOT ASSOCIATED WITH EXTREMITIES COMPARISON: June 22, 2018 TECHNIQUE: Single frontal view of the chest. FINDINGS: Lungs and pleura: Minimal bilateral subsegmental atelectasis No effusion.Heart and mediastinum: Normal heart size. Unremarkable mediastinal contours.Osseous structures: No acute abnormality.Other: None. IMPRESSION: No acute intrathoracic abnormality. Signed: Garo Medina Verified Date/Time: 03/03/2019 12:37:45 Reading Location: [facility] Radiology Reading Room chest 1 view portable / [id number] 12:37:00Interface, External Ris In - 03/03/2019 12:40 PM CDTFINAL REPORT INDICATION: GENERALIZED WEAKNESS, NOT ASSOCIATED WITH EXTREMITIES COMPARISON: June 22, 2018 TECHNIQUE: Single frontal view of the chest. FINDINGS: Lungs and pleura: Minimal bilateral subsegmental atelectasis No effusion.Heart and mediastinum: Normal heart size. Unremarkable mediastinal contours.Osseous structures: No acute abnormality.Other: None. IMPRESSION: No acute intrathoracic abnormality. Signed: Garo Medina MDReport Verified Date/Time: 03/03/2019 12:37:45 Reading Location: [facility] Radiology Reading Room [facility]-Lactic Acid, [id number] 12:23:00* Test Item Value Reference Range Interpretation Comments POC-Lactic Acid, Venous (test code = 2805) 1.7 mmol/L 0.9-1.7 TESTED AT [address] [address] Lab Interpretation (test code = 54889-6) Normal [facility]-LACTIC ACID, [id number] 12:23:00* Test Item Value Reference Range Interpretation Comments POC-LACTIC ACID, VENOUS (BEAKER) (test code = 2805) 1.7 mmol/L 0. 9-1.7 TESTED AT [address] [address] CBC W/PLT COUNT & AUTO [id number] 12:21:00* Test Item Value Reference Range Interpretation [...] code = 2801) 0 % 0-1 Blood [id number] 21:01:00* Test Item Value Reference Range Interpretation Comments Blood Culture (test code = 600-7) No growth 5 days [facility] GLUCOSE POC docked [id number] 08:14:00* Test Item Value Reference Range Interpretation Comments Glucose POC (test code = 70756625) 76 mg/dL 74-106 Lab Interpretation (test code = 79017-9) [facility]qxgegCuovphaya5665-54-18 04:45:00* Test Item Value Reference Range Interpretation Comments Magnesium (test code = 88193281) 1.6 mg/dL 1.9-2.7 L Lab Interpretation (test code = 83184-8) Abnormal [place] KkwxbfXjsgdensgk1037-16-34 04:45:00* Test Item Value Reference Range Interpretation Comments Phosphorus (test code = 2777-1) 3.8 mg/dL 2.5-5 Lab Interpretation (test code = 54517-5) Normal [facility] CenterComprehensive Metabolic [id number] 04:45:00* Test Item Value Reference Range Interpretation Comments Sodium (test code = 2951-2) 137 mmol/L 136-145 Potassium (test code = 2823-3) 3.9 mmol/L 3.5-5.1 Chloride (test code = 2075-0) 101 mmol/L 98-107 CO2 (test code = 91383508) 26 mmol/L 21-31 Glucose (test code = 80287670) 81 mg/dL 70-110 Calcium (test code = 68022890) 8.7 mg/dL 8.6-10.3 Urea Nitrogen (test code = 47709337) 13.0 mg/dL 7-25 Creatinine (test code = 88922087) 0.7 mg/dL 0.7-1.3 Alkaline Phosphatase (test code = 78854835) 63 U/L 34-104 ALT (test code = 93020697) 14 U/L 7-52 AST (test code = 73654392) 20 U/L 13-39 Total Protein (test code = 2885-2) 5.8 g/dL 6-8.3 L GFR, Estimated (test code = 12762152) >90 >=90 mL/min/1.73 m2 Albumin (test code = 57819-1) 3.1 g/dL 4.2-5.5 L Anion Gap (test code = 40075570) 10 mmol/L 5-16 Lab Interpretation (test code = 63931-5) Abnormal [facility] CenterCalcium, [id number] 04:33:00* Test Item Value Reference Range Interpretation Comments Calcium, Ionized (test code = 36170655) 1.18 mmol/L 1.15-1.29 Lab Interpretation (test code = 14144-5) Normal [facility] CenterCBC/Hjff1258-56-62 04:32:00* Test Item Value Reference Range Interpretation Comments [...] 32.5 g/dL 32-36 RDW (test code = 35476-9) 45.7 fL 35.1-43.9 H Platelet (test code = 777-3) 211 K/uL 150-400 Mean Platelet Volume (test code = 26124-6) 9.6 fL 9.4-12.4 Percent NRBC (test code = 11156853) 0.0 % Neutrophil (test code = 770-8) 63.0 % 34-67.9 Lymphs (test code = 736-9) 24.8 % 21.8-50 Monocytes (test code = 5905-5) 9.4 % 5.3-12 Eos (test code = 713-8) 2.2 % 0.8-5 Basos (test code = 706-2) 0.3 % 0.2-1.2 Immature Granulocytes (test code = 92404692) 0.3 % 0-0.5 Neutrophils (Absolute) (test code = 59695261) 3.76 K/uL 1.78-5.3 6 Lymphs (Absolute) (test code = 54468266) 1.48 K/uL 1.32-3.57 Monocytes(Absolute) (test code = 56344192) 0.56 K/uL 0.3-0.82 Eos (Absolute) (test code = 43353746) 0.13 K/uL 0.04-0.54 Baso (Absolute) (test code = 83079841) 0.02 K/uL 0.01-0.08 Immature Grans (Abs) (test code = 56549257) 0.02 K/uL 0-0.03 Absolute NRBC (test code = 03788798) 0.00 K/uL Lab Interpretation (test code = 34201-9) Abnormal [facility] Metabolic [id number] 10:12:00* Test Item Value Reference Range Interpretation Comments Sodium (test code = 2951-2) 139 mmol/L 136-145 Potassium (test code = 2823-3) 3.9 mmol/L 3.5-5.1 Chloride (test code = 2075-0) 101 mmol/L 98-107 CO2 (test code = 55986706) 30 mmol/L 21-31 Urea Nitrogen (test code = 31184311) 17.0 mg/dL 7-25 Creatinine (test code = 70270697) 0.7 mg/dL 0.7-1.3 Glucose (test code = 71165088) 81 mg/dL 70-110 Calcium (test code = 90516366) 8.4 mg/dL 8.6-10.3 L GFR, Estimated (test code = 53070817) >90 >=90 mL/min/1.73 m2 Anion Gap (test code = 25822404) 8 mmol/L 5-16 Lab Interpretation (test code = 69114-3) Abnormal [facility] CenterLiver Ntxvnrz0517-08-85 10:12:00* Test Item Value Reference Range Interpretation Comments Bilirubin, Total (test code = 2885-2) 0.3 mg/dL 0.2-1.2 L Alkaline Phosphatase (test code = 04103145) 61 U/L 34-104 AST (test code = 18965135) 26 U/L 13-39 Direct Bilirubin (test code = 1968-7) 0.1 mg/dL 0-0.2 ALT (test code = 63569894) 17 U/L 7-52 Albumin (test code = 68010-6) 3.0 g/dL 4.2-5.5 L Lab Interpretation (test code = 74539-0) Abnormal [facility] CenterNfujdxHirkjmwkms7126-37-38 07:13:00* Test Item Value Reference Range Interpretation Comments Color (test code = 03947220) Yellow Colorless, Straw, Yellow Clarity (test code = 37420503) Cloudy Clear A Spec Douds, Ur (test code = 06394007) >1.035 1.001-1.035 H pH, Ur (test code = 45325025) 6.0 5.0-8.0 Protein, Ur (test code = 70214543) 1+ Negative mg/dL A Glucose, Ur (test code = 66465999) 1+ Negative mg/dL A Ketone, Ur (test code = 52052995) Negative Negative mg/dL Bilirubin, Ur (test code = 03578797) Negative Negative mg/dL Nitrite, Ur (test code = 33755396) Negative Negative Leukocyte (test code = 88571834) 3+ Negative mg/dL A Blood, Ur (test code = 55007026) 1+ Negative mg/dL A RBC (test code = 54107831) 56 0- 4 /HPF H WBC (test code = 98544793) >182 0- 5 /HPF H Epithelial Cell (test code = 06434553) 2 <=1 /HPF H Bacteria (test code = 87603821) Moderate None seen /HPF A WBC Clumps (test code = 66974362) Many None seen /HPF A Urobilinogen, Ur (test code = 51646020) <1.0 <1.0 EU/dL Lab Interpretation (test code = 70601-0) Abnormal [facility] CenterDifferential, Ngdfye5746-98-88 05:03:00* Test Item Value Reference Range Interpretation Comments Neutrophil (test code = 25897839) 81.0 % 34-67.9 H Lymphs (test code = 99542062) 14.0 % 21.8-50 L Monocytes (test code = 70780022) 5.0 % 5.3-12 L Eos (test code = 76743505) 0.0 % 0.8-5 L Basos (test code = 63931793) 0.0 % 0.2-1.2 L Neutrophils (Absolute) (test code = 08148964) 5.51 K/uL 1.78-5.3 6 H Lymphs (Absolute) (test code = 18581030) 0.95 K/uL 1.32-3.57 L Monocytes(Absolute) (test code = 83521113) 0.34 K/uL 0.3-0.82 Eos (Absolute) (test code = 14608315) 0.00 K/uL 0.04-0.54 L Baso (Absolute) (test code = 21843910) 0.00 K/uL 0.01-0.08 L Cells Counted (test code = 49761184) Lab Interpretation (test code = 70187-2) Abnormal [facility] ABDOMEN AND PELVIS [id number] 04:19:44IMPRESSION: 1. Acute bilateral pyelonephritis with associated pyelitis [...] preliminary or finalized version. Dictated By: Orlando Worthington MD, 02/09/2019 2:04 AM I salcido ve [...] Stable cystic lesions in the left kidney.This [facility] rad iology report is a preliminary resident dictation untilfinalized by an attending . Changes to this preliminary report may occurin an additional preliminary or f inalized version.Dictated By: Orlando Wrothington MD, 02/09/2019 2:04 AMI have revi ewed the study and agree with the findings in this report.Signed By: Edson jhaveri MD, 02/09/2019 4:19 [facility] VBG POC docked [id number] 02:47:00* Test Item Value Reference Range Interpretation Comments pH, Noé POC (test code = 16249132) 7.43 7.33-7.43 HCO3, Noé POC (test code = 99418316) 23 mmol/L 22-26 TCO2 POC (test code = 89973547) 24 mmol/L 21-32 PO2, Venous POC (BKR) (test code = 27246004) 54 50- 75 mm Hg pCO2,Noé POC (test code = 42153354) 35.4 38- 50 mmHg L Base Deficit, Noé POC (test code = 66833235) -1 Sánchez's Test (test code = 29654427) YADY Sample Type (test code = 50340830) IVEN Site (test code = 26501224) RRADIA Lactic Acid POC (test code = 79961414) 0.39 mmol/L 0.4-2 L % Sat, Noé POC (test code = 52033108) 89 % Lab Interpretation (test code = 43817-4) Abnormal [facility] CenterXRAY CHEST 1 [id number] 21:53:42IMPRESSION: ] Retrocardiac opacity may represent airspace disease [...] suspected.Signed By: Morena Dockery MD, 02/08/2019 9:[address] [facility] HealthPT/INR/PTT 2019-02-08 21:14:00* Test Item Value Reference Range Interpretation Comments PT (test code = 5902-2) 12.5 11.8- 15.0 Seconds INR (test code = 28378877) 1.0 Refer to INR ranges 2.0 - 3.0 for moderate intensity anticoagulation2.5 - 3.5 for high intensity anticoagulation PTT (test code = 64946571) 42.9 23.6- 36.4 Seconds H The recommended therapuetic range is an APTT 61-103 seconds which corresponds to 0.3-0.7 anti Xa u/ml. Lab Interpretation (test code = 73315-9) Abnormal [facility] TROPONIN I POC docked [id number] 19:58:00* Test Item Value Reference Range Interpretation Comments Troponin POC (test code = 86158268) 0.01 ng/mL 0-0.08 Lab Interpretation (test code = 08846-8) Normal [facility] BMP POC docked cnsxdr2013-09-43 19:49:00* Test Item Value Reference Range Interpretation Comments Sodium POC (test code = 51521871) 137 mmol/L 136-145 Potassium POC (test code = 84095854) 4.5 mmol/L 3.5-5.1 Chloride POC (test code = 00951053) 100 mmol/L 98-107 TCO2 POC (test code = 47908825) 31 mmol/L 21-32 Urea Nitrogen POC (test code = 33835870) 29 mg/dL 7-18 H Creatinine POC (test code = 79834001) 1.1 mg/dL 0.6-1.3 Glucose POC (test code = 52392827) 95 mg/dL 74-106 Ionized Calcium POC (test code = 33693432) 1.18 mmol/L 1.15-1.29 GFR, Estimated (test code = 25600429) 66 >=90 mL/min/1.73 m2 L Hemoglobin POC (test code = 55436260) 12.2 g/dL 12-16 Hematocrit POC (test code = 85596499) 36.0 % 37-47 L Lab Interpretation (test code = 35072-7) Abnormal [place] [address] LEAD [id number] 16:13:3112 LEAD EKG FOR CHP Serge Chin [facility] Test Date: 2111-05-48Owc Name: MARLEN NOLAND Department: Room: 2R00Udidzw: M Sales Consultant: [id number]: [id number] Requested By: HERBERT Garcia Number: [id number] Reading MD: Yvan Coley MeasurementsIntervals Moran Rate: 130 P: SC: 0 QRS: 105QRSD: 110 T: 67QT: 327 QTc: 482 Interpretive StatementsATRIAL FIBRILLATION WITH RAPID VENTRICULAR RESPONSEMARKED RIGHT AXIS DEVIATION [QRS AXIS > 100]RIGHT BUNDLE BRANCH BLOCK [120+ ms QRS DURATION, UPRIGHT V1, 40+ ms S IN I/aVL/V4/V5/V6]Electronically Signed On 01-23-2019 16:13:27 CDT by Yvan Waterman [facility] [id number] 11:28:00* Test Item Value Reference Range Interpretation Comments Hemoglobin A1c (test code = 4548-4) 7.2 % 4.3-6.1 H Estimated Average Glucose (test code = 55628289) 160 mg/dL 70-11 0 H Lab Interpretation (test code = 21089-5) [facility]normal [id number] 04:35:00* Test Item Value Reference Range Interpretation Comments PT (test code = 5902-2) 15.0 11.8- 15.0 Seconds INR (test code = 44169139) 1.2 Refer to INR ranges 2.0 - 3.0 for moderate intensity anticoagulation2.5 - 3.5 for high intensity anticoagulation Lab Interpretation (test code = 15819-9) Normal [facility] 2 [id number] 18:57:06IMPRESSION: 1. Persistent right lower lung reticular opacities, which may representscarring or subsegmental atelectasis, with possible superimposedconsolidation, possibly due to infection or aspiration pneumonitis.2. Postsurgical changes in the right lung are unchanged compared toprior. This [facility] radiology report is a preliminary resident [...] right lung are unchanged compared t oprior.This [facility] radiology report is a preliminary resident dictation untilfinal ized by an attending. Changes to this preliminary report may occurin an additio nal preliminary or finalized version.Dictated By: Herbert Parra MD, 01/21/2019 6:3 1 PMI have reviewed the study and agree with the findings in this report.Signed By: Radha Sanderson MD, 01/21/2019 6:57 PMHarris [facility]XRAY ANKLE 3 VIEW MIN 2019-01-21 17:24:02IMPRESSION: Mildly displaced oblique fracture of the lateral [...] Signed By: Radha Sanderson MD, 01/21/2019 5:24 PMHarris HealthXRAY FOOT 3 VIEWS [id number] 17:24:02IMPRESSION: Mildly displaced oblique fracture of the lateral [...] Signed By: Radha Sanderson MD, 01/21 5:24 [facility] Top [id number] 15:01:00* Test Item Value Reference Range Interpretation Comments Hold Specimen (test code = 70025320) [id number] [facility] [id number] 15:01:00* Test Item Value Reference Range Interpretation Comments Hold Specimen (test code = 28406288) [id number] [facility] [id number] 01:44:00* Test Item Value Reference Range Interpretation Comments B-TYPE NATRIURETIC PEPTIDE (test code = BNP) 41.01 pgram/mL 0-100 N BASIC METABOLIC [id number] 01:25:00* Test Item Value Reference Range Interpretation [...] code = CA) 8.4 mg/dL 8.5-10.1 L [id number] 01:25:00* Test Item Value Reference Range Interpretation Comments TROPONIN-I (test code = TROPI) <0.015 ng/mL 0-0.045 N BASIC METABOLIC [id number] 01:15:00* Test Item Value Reference Range Interpretation [...] CALCIUM (test code = CA) mg/dL 8.5-10.1 [id number] 01:15:00* Test Item Value Reference Range Interpretation Comments TROPONIN-I (test code = TROPI) ng/mL 0-0.045 PROTHROMBIN [id number] 01:13:00* Test Item Value Reference Range Interpretation [...] (2.5-3.5) IS PATIENT ON ANTICOAGULANTS? NTHROMBOPLASTIN TIME [id number] 01:13:00* Test Item Value Reference Range Interpretation Comments THROMBOPLASTIN TIME PARTIAL (test code = PTT) 32.0 seconds 25.0-36. 5 N IS PATIENT ON ANTICOAGULANTS? NCBC W/O [id number] 01:01:00* Test Item Value Reference Range Interpretation [...] fL 6.7-11.0 N - XR CHEST 1 [id number] 00:44:00 FAX: Paolo Cunningham MD [place]: [address] St: REG Name: MARLEN RODGERS [facility] : [birth year] Age/S: 73/M [address] [facility] Unit #: [id number] Loc: [place] [address] Phys: Paolo Cunningham MD Acct: [id number] Dis Date: Status: REG ER PHONE #: [phone] Exam Date: 01/14/2019 0035 FAX #: [phone] Reason: CHEST PAIN EXAMS: CPT CODE: [id number] XR CHEST 1 V 42898 DICTATION LOCATION: H48 HISTORY: Male, 73 years [...] RT(R) Trnscrd Date/Time/By: 01/14/2019 (0044) : By: Duy Orig Print D/T: S: 01/14/2019 (0047) PAGE 1 Signed Report [id number] 08:44:00 * Test Item Value Reference Range Interpretation Comments GLUBED (test code = GLUBED) 178 mg/dL 74-106 H Performed by certified renovator machine operator at [facility] [id number] 16:34:00* Test Item Value Reference Range Interpretation Comments GLUBED (test code = GLUBED) 132 mg/dL 74-106 H Performed by certified renovator machine operator at [facility] [id number] 12:10:00* Test Item Value Reference Range Interpretation Comments GLUBED (test code = GLUBED) 281 mg/dL 74-106 H Performed by certified renovator machine operator at [facility] BASIC METABOLIC [id number] 07:36:00* Test Item Value Reference Range Interpretation [...] CA) 9.4 mg/dL 8.5-10.1 N BASIC METABOLIC [id number] 07:18:00* Test Item Value Reference Range Interpretation [...] CALCIUM (test code = CA) mg/dL 8.5-10.1 [id number] 21:14:00* Test Item Value Reference Range Interpretation Comments GLUBED (test code = GLUBED) 276 mg/dL 74-106 H Performed by certified renovator machine operator at [facility] [id number] 17:01:00* Test Item Value Reference Range Interpretation Comments GLUBED (test code = GLUBED) 164 mg/dL 74-106 H Performed by certified renovator machine operator at [facility] [id number] 11:45:00* Test Item Value Reference Range Interpretation Comments GLUBED (test code = GLUBED) 190 mg/dL 74-106 H Performed by certified renovator machine operator at [facility] CBC W/AUTO [id number] 10:30:00* Test Item Value Reference Range Interpretation [...] NRBC#) 0.00 K/mm3 0.0-0.1 N BASIC METABOLIC [id number] 07:22:00* Test Item Value Reference Range Interpretation [...] code = CA) 9.1 mg/dL 8.5-10.1 N [id number] 05:26:00* Test Item Value Reference Range Interpretation Comments GLUBED (test code = GLUBED) 154 mg/dL 74-106 H Performed by certified renovator machine operator at [facility] [id number] 20:39:00* Test Item Value Reference Range Interpretation Comments GLUBED (test code = GLUBED) 163 mg/dL 74-106 H Performed by certified renovator machine operator at [facility] [id number] 16:55:00* Test Item Value Reference Range Interpretation Comments GLUBED (test code = GLUBED) 363 mg/dL 74-106 H Performed by certified renovator machine operator at [facility] [id number] 12:41:00* Test Item Value Reference Range Interpretation Comments GLUBED (test code = GLUBED) 193 mg/dL 74-106 H Performed by certified renovator machine operator at [facility] [id number] 06:02:00* Test Item Value Reference Range Interpretation Comments GLUBED (test code = GLUBED) 243 mg/dL 74-106 H Performed by certified renovator machine operator at [facility] [id number] 21:59:00* Test Item Value Reference Range Interpretation Comments GLUBED (test code = GLUBED) 132 mg/dL 74-106 H Performed by certified renovator machine operator at [facility] [id number] 16:10:00* Test Item Value Reference Range Interpretation Comments GLUBED (test code = GLUBED) 273 mg/dL 74-106 H Performed by certified renovator machine operator at [facility] [id number] 11:39:00* Test Item Value Reference Range Interpretation Comments GLUBED (test code = GLUBED) 196 mg/dL 74-106 H Performed by certified renovator machine operator at [facility] [id number] 07:13:00* Test Item Value Reference Range Interpretation Comments GLUBED (test code = GLUBED) 185 mg/dL 74-106 H Performed by certified renovator machine operator at [facility] CBC W/AUTO [id number] 06:24:00* Test Item Value Reference Range Interpretation [...] DIFF REQUIRED (test code = MDIFF) NO [id number] 20:21:00* Test Item Value Reference Range Interpretation Comments GLUBED (test code = GLUBED) 187 mg/dL 74-106 H [facility] certified renovator machine [facility] HospitalNotified Nurse~ [id number] 12:35:00* Test Item Value Reference Range Interpretation Comments GLUBED (test code = GLUBED) 277 mg/dL 74-106 H Performed by certified renovator machine operator at [facility] BASIC METABOLIC [id number] 06:47:00* Test Item Value Reference Range Interpretation [...] CA) 9.0 mg/dL 8.5-10.1 N BASIC METABOLIC [id number] 06:32:00* Test Item Value Reference Range Interpretation [...] CALCIUM (test code = CA) mg/dL 8.5-10.1 [id number] 05:39:00* Test Item Value Reference Range Interpretation Comments GLUBED (test code = GLUBED) 224 mg/dL 74-106 H Performed by certified renovator machine operator at [facility] [id number] 20:10:00* Test Item Value Reference Range Interpretation Comments GLUBED (test code = GLUBED) 148 mg/dL 74-106 H Performed by certified renovator machine operator at [facility] [id number] 17:42:00* Test Item Value Reference Range Interpretation Comments GLUBED (test code = GLUBED) 197 mg/dL 74-106 H Performed by certified renovator machine operator at [facility] [id number] 12:28:00* Test Item Value Reference Range Interpretation Comments GLUBED (test code = GLUBED) 195 mg/dL 74-106 H [facility] certified renovator machine [facility]~ BASIC METABOLIC [id number] 06:28:00* Test Item Value Reference Range Interpretation [...] CA) 9.5 mg/dL 8.5-10.1 N BASIC METABOLIC [id number] 06:22:00* Test Item Value Reference Range Interpretation [...] CALCIUM (test code = CA) mg/dL 8.5-10.1 [id number] 05:40:00* Test Item Value Reference Range Interpretation Comments GLUBED (test code = GLUBED) 151 mg/dL 74-106 H Performed by certified renovator machine operator at [facility] - XR FOOT 2 VIEWS [id number] 23:04:00 FAX: Harinder Pozo [phone] [place]: [address] St: ADM FAX: Maikol Anand [phone] Name: MARLEN NOLAND GUILLERMINA [facility] : 1945 Age/S: 73/M [address] [facility] Unit #: [id number] Loc: V.4 [place] [address] Phys: Harinder Basilio Acct: [id number] Dis Date: Status: ADM IN PHONE #: [phone] Exam Date: 12/08/20181822 FAX #: [phone] Reason: heel pain,r/o foreign body EXAMS: CPT CODE: [id number] XR FO[place] [address] [place] [address] Left foot 2 views Comparison study N [...] Morena Cruz M.D. CC: Harinder Basilio; Maikol Anand Tiara hnologist: RT Lashell(R Trnscrd Date/T rafael/By: 12/08/2018 (5150) : By: Terry Orig Print D/T: S: 9 (4048) PAGE 1 Signed Report [id number] 21:35:00* Test Item Value Reference Range Interpretation Comments GLUBED (test code = GLUBED) 287 mg/dL 74-106 H Performed by certified renovator machine operator at [facility] [id number] 17:58:00* Test Item Value Reference Range Interpretation Comments GLUBED (test code = GLUBED) 305 mg/dL 74-106 H Performed by certified renovator machine operator at [facility] [id number] 11:56:00* Test Item Value Reference Range Interpretation Comments GLUBED (test code = GLUBED) 358 mg/dL 74-106 H Performed by certified renovator machine operator at [facility] BASIC METABOLIC [id number] 08:04:00* Test Item Value Reference Range Interpretation [...] CA) 9.3 mg/dL 8.5-10.1 N BASIC METABOLIC [id number] 07:44:00* Test Item Value Reference Range Interpretation [...] CALCIUM (test code = CA) mg/dL 8.5-10.1 [id number] 05:28:00* Test Item Value Reference Range Interpretation Comments GLUBED (test code = GLUBED) 201 mg/dL 74-106 H Performed by certified renovator machine operator at [facility] [id number] 01:16:00* Test Item Value Reference Range Interpretation Comments GLUBED (test code = GLUBED) 196 mg/dL 74-106 H Performed by certified renovator machine operator at [facility] [id number] 21:54:00* Test Item Value Reference Range Interpretation Comments GLUBED (test code = GLUBED) 247 mg/dL 74-106 H Performed by certified renovator machine operator at [facility] [id number] 17:41:00* Test Item Value Reference Range Interpretation Comments GLUBED (test code = GLUBED) 294 mg/dL 74-106 H Performed by certified renovator machine operator at [facility] [id number] 12:23:00* Test Item Value Reference Range Interpretation Comments GLUBED (test code = GLUBED) 173 mg/dL 74-106 H Performed by certified renovator machine operator at [facility] [id number] 06:25:00* Test Item Value Reference Range Interpretation Comments GLUBED (test code = GLUBED) 238 mg/dL 74-106 H Performed by certified renovator machine operator at [facility] BASIC METABOLIC [id number] 06:15:00* Test Item Value Reference Range Interpretation [...] code = CA) 9.0 mg/dL 8.5-10.1 N [id number] 06:15:00* Test Item Value Reference Range Interpretation Comments PHOSPHORUS (test code = PHOS) 2.9 mg/dL 2.5-4.9 N [id number] 06:15:00* Test Item Value Reference Range Interpretation Comments MAGNESIUM (test code = MAG) 1.8 mg/dL 1.8-2.4 N CALCIUM [id number] 06:15:00* Test Item Value Reference Range Interpretation Comments CALCIUM IONIZED (test code = ALIVIA) 1.24 mmol/L 1.12-1.32 N BASIC METABOLIC [id number] 06:09:00* Test Item Value Reference Range Interpretation [...] code = CA) 9.0 mg/dL 8.5-10.1 N [id number] 06:09:00* Test Item Value Reference Range Interpretation Comments PHOSPHORUS (test code = PHOS) 2.9 mg/dL 2.5-4.9 N [id number] 06:09:00* Test Item Value Reference Range Interpretation Comments MAGNESIUM (test code = MAG) 1.8 mg/dL 1.8-2.4 N CALCIUM [id number] 06:09:00* Test Item Value Reference Range Interpretation Comments CALCIUM IONIZED (test code = ALIVIA) mmol/L 1.12-1.32 BASIC METABOLIC [id number] 06:03:00* Test Item Value Reference Range Interpretation [...] CALCIUM (test code = CA) mg/dL 8.5-10.1 [id number] 06:03:00* Test Item Value Reference Range Interpretation Comments PHOSPHORUS (test code = PHOS) mg/dL 2.5-4.9 [id number] 06:03:00* Test Item Value Reference Range Interpretation Comments MAGNESIUM (test code = MAG) mg/dL 1.8-2.4 CALCIUM [id number] 06:03:00* Test Item Value Reference Range Interpretation Comments CALCIUM IONIZED (test code = ALIVIA) mmol/L 1.12-1.32 [id number] 21:37:00* Test Item Value Reference Range Interpretation Comments GLUBED (test code = GLUBED) 158 mg/dL 74-106 H Performed by certified renovator machine operator at [facility] UR PROTEIN/CREATININE [id number] 19:51:00* Test Item Value Reference Range Interpretation [...] 0.16 RATIO 0.0-0. 20 N UR PROTEIN/CREATININE [id number] 19:49:00* Test Item Value Reference Range Interpretation [...] (test code = P/CRATIO) RATIO 0.0-0. 20 [id number] 18:54:00* Test Item Value Reference Range Interpretation Comments GLUBED (test code = GLUBED) 124 mg/dL 74-106 H Performed by certified renovator machine operator at [facility] [id number] 12:15:00* Test Item Value Reference Range Interpretation Comments GLUBED (test code = GLUBED) 249 mg/dL 74-106 H Performed by certified renovator machine operator at [facility] BASIC METABOLIC [id number] 10:56:00* Test Item Value Reference Range Interpretation [...] CA) 9.5 mg/dL 8.5-10.1 N COMPREHENSIVE METABOLIC [id number] 10:56:00* Test Item Value Reference Range Interpretation [...] reference range due to change in reagent. [id number] 10:56:00* Test Item Value Reference Range Interpretation Comments PHOSPHORUS (test code = PHOS) 3.7 mg/dL 2.5-4.9 N [id number] 10:56:00* Test Item Value Reference Range Interpretation Comments MAGNESIUM (test code = MAG) 2.0 mg/dL 1.8-2.4 N CALCIUM [id number] 10:56:00* Test Item Value Reference Range Interpretation Comments CALCIUM IONIZED (test code = ALIVIA) 1.30 mmol/L 1.12-1.32 N BASIC METABOLIC [id number] 10:49:00* Test Item Value Reference Range Interpretation [...] code = CA) mg/dL 8.5-10.1 COMPREHENSIVE METABOLIC [id number] 10:49:00* Test Item Value Reference Range Interpretation [...] TOTAL (test code = ALKP) IUnit/L 45-117 [id number] 10:49:00* Test Item Value Reference Range Interpretation Comments PHOSPHORUS (test code = PHOS) mg/dL 2.5-4.9 [id number] 10:49:00* Test Item Value Reference Range Interpretation Comments MAGNESIUM (test code = MAG) mg/dL 1.8-2.4 CALCIUM [id number] 10:49:00* Test Item Value Reference Range Interpretation Comments CALCIUM IONIZED (test code = ALIVIA) 1.30 mmol/L 1.12-1.32 N BASIC METABOLIC [id number] 10:37:00* Test Item Value Reference Range Interpretation [...] code = CA) mg/dL 8.5-10.1 COMPREHENSIVE METABOLIC [id number] 10:37:00* Test Item Value Reference Range Interpretation [...] TOTAL (test code = ALKP) IUnit/L 45-117 [id number] 10:37:00* Test Item Value Reference Range Interpretation Comments PHOSPHORUS (test code = PHOS) mg/dL 2.5-4.9 [id number] 10:37:00* Test Item Value Reference Range Interpretation Comments MAGNESIUM (test code = MAG) mg/dL 1.8-2.4 CALCIUM [id number] 10:37:00* Test Item Value Reference Range Interpretation Comments CALCIUM IONIZED (test code = ALIVIA) 1.30 mmol/L 1.12-1.32 N CBC W/AUTO [id number] 10:12:00* Test Item Value Reference Range Interpretation [...] DIFF REQUIRED (test code = MDIFF) NO [id number] 07:19:00* Test Item Value Reference Range Interpretation Comments GLUBED (test code = GLUBED) 201 mg/dL 74-106 H Performed by certified renovator machine operator at [facility] [id number] 22:31:00* Test Item Value Reference Range Interpretation Comments GLUBED (test code = GLUBED) 157 mg/dL 74-106 H Performed by certified renovator machine operator at [facility] [id number] 16:27:00* Test Item Value Reference Range Interpretation Comments GLUBED (test code = GLUBED) 163 mg/dL 74-106 H Performed by certified renovator machine operator at [facility] - US RETRO [id number] 15:13:00 Name: MARLEN NOLAND [facility] : 1945 Age/S: 73 / M [address] Unit #: [id number] Loc: [place] [address] Phys: Dhruv Whitehead MD Acct: [id number] Dis Date: Status: ADM IN PHONE #: [phone] Exam Date: 12/05/2018 1455 FAX #: [phone] Reason: eval size EXAMS: CPT CODE: [id number] US RETRO LTD [address]14 REASON FOR EXAM: eval size EXAM ORDER [...] Polk M.D. CC: Dhruv Whitehead MD; Maikol Anand Technologist: SAL ROBISON(R),RDMI Trniab Date/Time: 12/05/2018 (1512) Keila Orig Print D/T: S: 12/05/2018 (5460) Probe: PAGE 1 Signed Report [id number] 11:47:00* Test Item Value Reference Range Interpretation Comments GLUBED (test code = GLUBED) 186 mg/dL 74-106 H Performed by certified renovator machine operator at [facility] - XR CHEST 1 [id number] 10:13:00 FAX: Tonie Mcintosh NP [phone] [place]: St: [facility] FAX: Maikol Anandh [phone] Name: MARLEN NOLAND [facility] : 1945 Age/S: 73/M [address] Unit #: [id number] Loc: V.S05 [place] [address] Phys: Tonie Mcintosh NP Acct: [id number] Dis Date: Status: ADM IN PHONE #: [phone] Exam Date: 12/05/2018 0948 FAX #: [phone] Reason: sob EXAMS: CPT CODE: [id number] XR CHEST 1 V 37117 REASON FOR EXAM: sob Exam Order Date: [...] by: Thor Davis MD CC: Miladys Mcintosh SECURITY INCIDENT HANDLER; Maikol Anand Technologist: Marsha Arnold( Madan) Trnscrd Date/Time/By: 12/05/2018 (1013) : B y: JaredRR31 Orig Print D/T: S: 12/05/2018 (1016) PAGE 1 Signed Report [id number] 08:07:00* Test Item Value Reference Range Interpretation Comments GLUBED (test code = GLUBED) 176 mg/dL 74-106 H Performed by certified renovator machine operator at [facility] BASIC METABOLIC [id number] 06:36:00* Test Item Value Reference Range Interpretation [...] CA) 9.4 mg/dL 8.5-10.1 N COMPREHENSIVE METABOLIC [id number] 06:36:00* Test Item Value Reference Range Interpretation [...] reference range due to change in reagent. [id number] 06:36:00* Test Item Value Reference Range Interpretation Comments PHOSPHORUS (test code = PHOS) 3.3 mg/dL 2.5-4.9 N [id number] 06:36:00* Test Item Value Reference Range Interpretation Comments MAGNESIUM (test code = MAG) 1.9 mg/dL 1.8-2.4 N CALCIUM [id number] 06:36:00* Test Item Value Reference Range Interpretation Comments CALCIUM IONIZED (test code = ALIVIA) 1.32 mmol/L 1.12-1.32 N BASIC METABOLIC [id number] 06:26:00* Test Item Value Reference Range Interpretation [...] code = CA) mg/dL 8.5-10.1 COMPREHENSIVE METABOLIC [id number] 06:26:00* Test Item Value Reference Range Interpretation [...] TOTAL (test code = ALKP) IUnit/L 45-117 [id number] 06:26:00* Test Item Value Reference Range Interpretation Comments PHOSPHORUS (test code = PHOS) mg/dL 2.5-4.9 [id number] 06:26:00* Test Item Value Reference Range Interpretation Comments MAGNESIUM (test code = MAG) mg/dL 1.8-2.4 CALCIUM [id number] 06:26:00* Test Item Value Reference Range Interpretation Comments CALCIUM IONIZED (test code = ALIVIA) 1.32 mmol/L 1.12-1.32 N BASIC METABOLIC [id number] 06:25:00* Test Item Value Reference Range Interpretation [...] code = CA) mg/dL 8.5-10.1 COMPREHENSIVE METABOLIC [id number] 06:25:00* Test Item Value Reference Range Interpretation [...] TOTAL (test code = ALKP) IUnit/L 45-117 [id number] 06:25:00* Test Item Value Reference Range Interpretation Comments PHOSPHORUS (test code = PHOS) mg/dL 2.5-4.9 [id number] 06:25:00* Test Item Value Reference Range Interpretation Comments MAGNESIUM (test code = MAG) mg/dL 1.8-2.4 CALCIUM [id number] 06:25:00* Test Item Value Reference Range Interpretation Comments CALCIUM IONIZED (test code = ALIVIA) mmol/L 1.12-1.32 CBC W/AUTO [id number] 06:06:00* Test Item Value Reference Range Interpretation [...] DIFF REQUIRED (test code = MDIFF) NO [id number] 03:55:00* Test Item Value Reference Range Interpretation Comments GLUBED (test code = GLUBED) 242 mg/dL 74-106 H Performed by certified renovator machine operator at [facility] [id number] 15:07:00* Test Item Value Reference Range Interpretation Comments GLUBED (test code = GLUBED) 182 mg/dL 74-106 H Performed by certified renovator machine operator at [facility] [id number] 12:00:00* Test Item Value Reference Range Interpretation Comments GLUBED (test code = GLUBED) 190 mg/dL 74-106 H Performed by certified renovator machine operator at [facility] BASIC METABOLIC [id number] 07:21:00* Test Item Value Reference Range Interpretation [...] CA) 9.6 mg/dL 8.5-10.1 N COMPREHENSIVE METABOLIC [id number] 07:21:00* Test Item Value Reference Range Interpretation [...] reference range due to change in reagent. [id number] 07:21:00* Test Item Value Reference Range Interpretation Comments PHOSPHORUS (test code = PHOS) 2.9 mg/dL 2.5-4.9 N [id number] 07:21:00* Test Item Value Reference Range Interpretation Comments MAGNESIUM (test code = MAG) 1.7 mg/dL 1.8-2.4 L CALCIUM [id number] 07:21:00* Test Item Value Reference Range Interpretation Comments CALCIUM IONIZED (test code = ALIVIA) 1.35 mmol/L 1.12-1.32 H BASIC METABOLIC [id number] 07:06:00* Test Item Value Reference Range Interpretation [...] code = CA) mg/dL 8.5-10.1 COMPREHENSIVE METABOLIC [id number] 07:06:00* Test Item Value Reference Range Interpretation [...] TOTAL (test code = ALKP) IUnit/L 45-117 [id number] 07:06:00* Test Item Value Reference Range Interpretation Comments PHOSPHORUS (test code = PHOS) mg/dL 2.5-4.9 [id number] 07:06:00* Test Item Value Reference Range Interpretation Comments MAGNESIUM (test code = MAG) mg/dL 1.8-2.4 CALCIUM [id number] 07:06:00* Test Item Value Reference Range Interpretation Comments CALCIUM IONIZED (test code = ALIVIA) 1.35 mmol/L 1.12-1.32 H BASIC METABOLIC [id number] 07:02:00* Test Item Value Reference Range Interpretation [...] code = CA) mg/dL 8.5-10.1 COMPREHENSIVE METABOLIC [id number] 07:02:00* Test Item Value Reference Range Interpretation [...] TOTAL (test code = ALKP) IUnit/L 45-117 [id number] 07:02:00* Test Item Value Reference Range Interpretation Comments PHOSPHORUS (test code = PHOS) mg/dL 2.5-4.9 [id number] 07:02:00* Test Item Value Reference Range Interpretation Comments MAGNESIUM (test code = MAG) mg/dL 1.8-2.4 CALCIUM [id number] 07:02:00* Test Item Value Reference Range Interpretation Comments CALCIUM IONIZED (test code = ALIVIA) 1.35 mmol/L 1.12-1.32 H CBC W/AUTO [id number] 06:31:00* Test Item Value Reference Range Interpretation [...] NRBC#) 0.00 K/mm3 0.0-0.1 N ARTERIAL BLOOD [id number] 12:49:00* Test Item Value Reference Range Interpretation [...] 14.1 % vol 18.0-22.0 L ARTERIAL BLOOD [id number] 11:42:00* Test Item Value Reference Range Interpretation [...] vol 18.0-22.0 L - XR CHEST 1 [id number] 10:25:00 FAX: Tonie Mcintosh NP [phone] [place]: St: [facility] FAX: Maikol Anand [phone] Name: MARLEN NOLAND [facility] : 1945 Age/S: 73/M [address] [facility] Unit #: [id number] Loc: [address] [address] Phys: Tonie Mcintosh NP Acct: [id number] Dis Date: Status: ADM IN PHONE #: [phone] Exam Date: 12/03/2018 1003 FAX #: [phone] Reason: sob EXAMS: CPT CODE: [id number] XR CHEST 1 V 65474 REASON FOR EXAM: sob EXAM ORDER DATE: [...] by: Sundar Polk M.D. CC: Tonie Mcintosh SECURITY INCIDENT HANDLER; Maikol Anand Technologist: HARRIETT WORTHINGTON RT (R) Trnscrd Date/Time/By: 12/03/2018 (1025) : By: AmandaL Orig Print D/T: S: 12/03/2018 (9447) PAGE 1 Signed Report CBC W/AUTO [id number] 06:43:00* Test Item Value Reference Range Interpretation [...] NRBC#) 0.00 K/mm3 0.0-0.1 N BASIC METABOLIC [id number] 06:11:00* Test Item Value Reference Range Interpretation [...] code = CA) 8.2 mg/dL 8.5-10.1 L [id number] 06:11:00* Test Item Value Reference Range Interpretation Comments PHOSPHORUS (test code = PHOS) 2.8 mg/dL 2.5-4.9 N [id number] 06:11:00* Test Item Value Reference Range Interpretation Comments MAGNESIUM (test code = MAG) 1.5 mg/dL 1.8-2.4 L BASIC METABOLIC [id number] 06:06:00* Test Item Value Reference Range Interpretation [...] CALCIUM (test code = CA) mg/dL 8.5-10.1 [id number] 06:06:00* Test Item Value Reference Range Interpretation Comments PHOSPHORUS (test code = PHOS) mg/dL 2.5-4.9 [id number] 06:06:00* Test Item Value Reference Range Interpretation Comments MAGNESIUM (test code = MAG) mg/dL 1.8-2.4 - XR CHEST 1 [id number] 16:21:00 FAX: JAN LANDERS MD [place]: St: [facility] FAX: Maikol Anand [facility] [phone] Name: MARLEN NOLAND [facility] : 1945 Age/S: 73/M [address] Unit #: [id number] Loc: [place] [address] Phys: JAN LANDERS MD Acct: [id number] Dis Date: Status: ADM IN PHONE #: [phone] Exam Date: 12/02/2018 1610 FAX #: [phone] Reason: POST OG TUBE PLACEMENT EXAMS: CPT CODE: [id number] XR CHEST 1 V 51046 REASON FOR EXAM: POST OG TUBE PLACEMENT EXAM ORDER DATE: 12/02/2018 3:59 PM Ordering M.DCoral: JAN LANDERS MD PROCEDURE: - XR CHEST [...] Polk M.D. CC: JAN LANDERS MD; Maikol Anand Technologist: RT KEENA(R) Trnscrd Date/Time/By: 12/02/2018 (5807) : By: JaredVTL PAGE 1 Signed Report ARTERIAL BLOOD [id number] 07:49:00* Test Item Value Reference Range Interpretation [...] 587.6 mm Hg - XR CHEST 1 [id number] 07:26:00 FAX: Champ Anna DO [place]: St: REG FAX: Y Ottoniel Alonso NP [phone] Name: MIRAMARLEN GUILLERMINA [facility] : 1945 Age/S: 73/M [address] Unit #: [id number] Loc: [place] [address] Phys: Ottoniel Alonso SECURITY INCIDENT HANDLER Acct: [id number] Dis Date: Status: REG ER PHONE #: [phone] Exam Date: 12/02/2018 0700 FAX #: [phone] Reason: intubation EXAMS: CPT CODE: [id number] XR CHEST 1 V 22463 CLINICAL HISTORY: intubation, altered mental status TECHNIQUE: AP chest x- ray COMPARISON: Previous day. IMPRESSION: ET tube positioned above the ny T2 level. Mildly improved bibasilar airspace opacification and atelectasis. No evident pleural effusion. Elevated right hemidiaphragm. Cardiomegaly. Atherosclerotic vascular calcification of the thoracic aorta. Sternotomy wires. at 0768 Reported and signed by: Netta Hidalgo D.O. CC: Champ Anna DO; Ottoniel Alonso NP Technologist: Marsha Santos) Trniaivan Date/Time/By: 12/02/2018 (0726) : By: [email or web address] Orig Print D/T: S: 12/02/2018 (0726) PAGE 1 Signed Report ARTERIAL BLOOD [id number] 05:47:00* Test Item Value Reference Range Interpretation [...] O2CT) 14.5 % vol 18.0-22.0 L LACTIC [id number] 01:01:00* Test Item Value Reference Range Interpretation Comments LACTIC ACID (test code = LACT) 1.7 mmol/L 0.4-1.9 N - CT CHEST W/O [id number] 00:01:00 Name: MARLEN NOLAND [facility] : 1945 Age/S: 73 / M [address] Unit #: [id number] Loc: [place] [address] Phys: Maikol Anand MD Acct: [id number] Dis Date: Status: REG ER PHONE #: [phone] Exam Date: 12/01/2018 2350 FAX #: [phone] Reason: PNEUMONIA EXAMS: CPT CODE: [id number] CT CHEST W/O CONTRAST 03212 HISTORY: Pneumonia TECHNIQUE: Axial tomograms through the [...] Bell MD CC: Champ Anna DO; Maikol Anand Technologist:MCKENNA MICHELAR, RT CTDI: DLP: Trnscb Date/Time: 12/03/19 19 (0001) [email or web address] Orig Print D/T: S: 12/02/2018 (0005) PAGE 1 Signed Report URINALYSIS [id number] 23:57:00* Test Item Value Reference Range Interpretation [...] FEW #/LPF FEW Urine Source? Clean CatchURINALYSIS [id number] 23:54:00* Test Item Value Reference Range Interpretation [...] HPF NONE Urine Source? Clean CatchB-TYPE NATRIURETIC [id number] 22:28:00* Test Item Value Reference Range Interpretation [...] taking into account the patients history. LACTIC [id number] 22:03:00* Test Item Value Reference Range Interpretation Comments LACTIC ACID (test code = LACT) 2.4 mmol/L 0.4-1.9 HH Results called to [id number] by [facility] 12/01/18 2203Critical results verified and read back by Nurse? Y BASIC METABOLIC [id number] 22:02:00* Test Item Value Reference Range Interpretation [...] CA) 9.0 mg/dL 8.5-10.1 N HEPATIC FUNCTION [id number] 22:02:00* Test Item Value Reference Range Interpretation [...] reference range due to change in reagent. [id number] 22:02:00* Test Item Value Reference Range Interpretation Comments LIPASE (test code = LIP) 87 U/L 73.0-393.0 N [id number] 22:02:00* Test Item Value Reference Range Interpretation Comments TROPONIN-I (test code = TROPI) <0.015 ng/mL 0-0.045 N ARTERIAL BLOOD [id number] 22:01:00* Test Item Value Reference Range Interpretation [...] by Lina 22:00 - 12/01/2018; by Morgan Chung, SECURITIES CONSULTANT-SLIP COVER SEAMSTRESS METHEMOGLOBIN (test code = METHGB) 0.3 % 0.0-1.50 N O2 CONTENT (test code = O2CT) 16.0 % vol 18.0-22.0 L A-A GRADIENT (test code = AAGRADE) 516.7 mm Hg [id number] 22:01:00* Test Item Value Reference Range Interpretation Comments AMMONIA (test code = AMM) < 10 umol/L 11-32 L - XR CHEST 1 [id number] 21:54:00 FAX: Champ Anna DO [place]: St: REG Name: MARLEN RODGERS [facility] : [birth year] Age/S: 73/M [address] Unit #: [id number] Loc: [place] [address] Phys: Champ Anna DO Acct: [id number] Dis Date: Status: REG ER PHONE #: [phone] Exam Date: 12/01/20182132 FAX #: [phone] Reason: CODE SEPSIS EXAMS: CPT CODE: [id number] XR CHEST 1 V 73648 REASON FOR EXAM: CODE SEPSIS EXAM ORDER DATE: 12/01/2018 9:10 PM Ordering M.Antonino: Champ Anna DO PROCEDURE: - XR CHEST [...] Champ Anna DO Technologist: COOPER HAWKINS; SARIAH CHRISTIANSEN RT(R) Trnscrd Date/Time/By: 12/01/2018 (2153) : By: Roslyn LEE Orig Print D/T: S: 12/01/2018 (5208) EZEQUIEL HERNANDEZ 1 Signed Report - CT HEAD/BRAIN W/O [id number] 21:49:00 Name: MARLEN NOLAND [facility] : 1945 Age/S: 73 / M [address] Unit #: [id number] Loc: [place] [address] Phys: Champ Anna DO Acct: [id number] Dis Date: Status: REG ER PHONE #: [phone] Exam Date: 12/01/20183 FAX #: [phone] Reason: CODE SEPSIS EXAMS: CPT CODE: [id number] CT HEAD/BRAIN W/O CONT 37520 REASON FOR EXAM: CODE SEPSIS EXAM ORDER DATE: 12/01/2018 9:10 PM Ordering M.Antonino: Champ Anna DO PROCEDURE: - CT HEAD/BRAIN [...] calvarium is intact. IMPRESSION: Unremarkable brain. at 2146 Reported and signed by: Sundar Polk M.D. CC: Champ Anna DO Technologist:MARLEN GONZALEZ, RT(R) CT CTDI: DLP: Trnscb Date/Time: 12/01/2018 (2148) AmandaL Orig Print D/T: S: 12/01/2018 (3494) PAGE 1 Signed Report PROTHROMBIN [id number] 21:47:00* Test Item Value Reference Range Interpretation [...] (2.5-3.5) IS PATIENT ON ANTICOAGULANTS? NTHROMBOPLASTIN TIME [id number] 21:47:00* Test Item Value Reference Range Interpretation Comments THROMBOPLASTIN TIME PARTIAL (test code = PTT) 34.6 seconds 25.0-36. 5 N IS PATIENT ON ANTICOAGULANTS? NBASIC METABOLIC [id number] 21:42:00* Test Item Value Reference Range Interpretation [...] code = CA) mg/dL 8.5-10.1 HEPATIC FUNCTION [id number] 21:42:00* Test Item Value Reference Range Interpretation [...] TOTAL (test code = ALKP) IUnit/L 45-117 [id number] 21:42:00* Test Item Value Reference Range Interpretation Comments LIPASE (test code = LIP) U/L 73.0-393.0 [id number] 21:42:00* Test Item Value Reference Range Interpretation Comments TROPONIN-I (test code = TROPI) ng/mL 0-0.045 CBC W/AUTO [id number] 21:37:00* Test Item Value Reference Range Interpretation [...] DIFF REQUIRED (test code = MDIFF) NO [id number] 15:46:00* Test Item Value Reference Range Interpretation Comments GLUBED (test code = GLUBED) 182 mg/dL 74-106 H Performed by certified renovator machine operator at [facility] [id number] 12:25:00* Test Item Value Reference Range Interpretation Comments GLUBED (test code = GLUBED) 192 mg/dL 74-106 H Performed by certified renovator machine operator at [facility] LIPID PROFILE (CORONARY RISK)2018-11-22 11:25:00* Test [...] RELATED TO RISK LEVELS ASRECOMMENDED BY THE BESSIE. HEART, LUNG, AND BLOOD INST. HDL CHOLESTEROL (test code = HDL) 39 mg/dL 40-60 L LIPOPROTEIN LDL (test code = LDL) 62 mg/dL 100-129 L Reference Interval: mg/dL mmol/L Optimal <100 <2.6Near/above optimal 100-129 2.6- 3.3Borderline High 130-159 3.4-4.1High 160-189 4.1-4.9Very High >=190 >=4.9========= This LDL result is a direct measurement.========= SPECIMEN COMMENTS: add to labsTHYROID STIMULATING [id number] 11:25:00* Test Item Value Reference Range Interpretation Comments THYROID STIMULATING HORMONE (test code = TSH) 1.240 uIU/mL 0.36-3.7 4 N TSH REFERENCE RANGES: EUTHYROID: 0.35 - 4.3 mIU/mL HYPO : > 5.5 mIU/mL HYPER : < 0.35 mIU/mL SPECIMEN COMMENTS: add to [id number] 08:10:00* Test Item Value Reference Range Interpretation Comments GLUBED (test code = GLUBED) 134 mg/dL 74-106 H Performed by certified renovator machine operator at [facility] [id number] 04:58:00* Test Item Value Reference Range Interpretation Comments GLYCOSYLATED HEMOGLOBIN (HA1C) (test code = GLYHGB) 7.4 % HbA1 4. 8-6.0 H ESTIMATED AVERAGE GLUCOSE (test code = EAG) 166 MG/DL COMPREHENSIVE METABOLIC [id number] 04:52:00* Test Item Value Reference Range Interpretation [...] due to change in reagent. COMPREHENSIVE METABOLIC [id number] 04:45:00* Test Item Value Reference Range Interpretation [...] code = ALKP) IUnit/L 45-117 CBC W/AUTO [id number] 04:21:00* Test Item Value Reference Range Interpretation [...] DIFF REQUIRED (test code = MDIFF) NO [id number] 20:53:00* Test Item Value Reference Range Interpretation Comments GLUBED (test code = GLUBED) 117 mg/dL 74-106 H Performed by certified renovator machine operator at [facility] [id number] 16:59:00* Test Item Value Reference Range Interpretation Comments GLUBED (test code = GLUBED) 181 mg/dL 74-106 H [facility] certified renovator machine [facility]~ [id number] 13:18:00* Test Item Value Reference Range Interpretation Comments MAGNESIUM (test code = MAG) 2.0 mg/dL 1.8-2.4 N [id number] 13:18:00* Test Item Value Reference Range Interpretation Comments PHOSPHORUS (test code = PHOS) 3.0 mg/dL 2.5-4.9 N [id number] 12:12:00* Test Item Value Reference Range Interpretation Comments GLUBED (test code = GLUBED) 203 mg/dL 74-106 H [facility] certified renovator machine [facility]~ [id number] 08:14:00* Test Item Value Reference Range Interpretation Comments GLUBED (test code = GLUBED) 103 mg/dL 74-106 N [facility] certified renovator machine [facility]~ [id number] 20:59:00* Test Item Value Reference Range Interpretation Comments GLUBED (test code = GLUBED) 125 mg/dL 74-106 H Performed by certified renovator machine operator at [facility] [id number] 16:42:00* Test Item Value Reference Range Interpretation Comments GLUBED (test code = GLUBED) 235 mg/dL 74-106 H [facility] certified renovator machine [facility]~ [id number] 12:14:00* Test Item Value Reference Range Interpretation Comments GLUBED (test code = GLUBED) 217 mg/dL 74-106 H [facility] certified renovator machine [facility] [id number] 08:32:00* Test Item Value Reference Range Interpretation Comments GLUBED (test code = GLUBED) 141 mg/dL 74-106 H Performed by certified renovator machine operator at [facility] BASIC METABOLIC [id number] 05:59:00* Test Item Value Reference Range Interpretation [...] CA) 8.8 mg/dL 8.5-10.1 N CBC W/AUTO [id number] 05:28:00* Test Item Value Reference Range Interpretation [...] code = NRBC#) 0.00 K/mm3 0.0-0.1 N [id number] 20:57:00* Test Item Value Reference Range Interpretation Comments GLUBED (test code = GLUBED) 101 mg/dL 74-106 N Performed by certified renovator machine operator at [facility] [id number] 16:10:00* Test Item Value Reference Range Interpretation Comments GLUBED (test code = GLUBED) 147 mg/dL 74-106 H Performed by certified renovator machine operator at [facility] [id number] 12:15:00* Test Item Value Reference Range Interpretation Comments GLUBED (test code = GLUBED) 183 mg/dL 74-106 H Performed by certified renovator machine operator at [facility] [id number] 10:23:00* Test Item Value Reference Range Interpretation Comments GLUBED (test code = GLUBED) 124 mg/dL 74-106 H Performed by certified renovator machine operator at [facility] - CT HEAD/BRAIN W/O [id number] 03:44:00 Name: MARLEN NOLAND [facility] : 1945 Age/S: 73 / M [address] Unit #: [id number] Loc: [place] [address] Phys: Celina Camarena MD Acct: [id number] Dis Date: Status: ADM IN PHONE #: [phone] Exam Date: 11/19/2018323 FAX #: [phone] Reason: UNRESPONSIVE EXAMS: CPT CODE: [id number] CT HEAD/BRAIN W/O CONT 10328 AFTER HOURS SERVICE ON: 11/19/2018 3:42 AM [...] signed by: Jan Schneider M.D. CC: Ryan Anand; Celina Camarena MD Technologist:Madan Quintero(R)(CT) CTDI: DLP: Trnscb Date/Time: 11/19/2018 (0344) t.NIYA R.MA50 Orig Print D/T: S: 11/19/2018 (0347) PAGE 1 Signed Report [id number] 02:35:00* Test Item Value Reference Range Interpretation Comments GLUBED (test code = GLUBED) 122 mg/dL 74-106 H Performed by certified renovator machine operator at [facility] [id number] 20:52:00* Test Item Value Reference Range Interpretation Comments GLUBED (test code = GLUBED) 133 mg/dL 74-106 H [facility] certified renovator machine [facility]~ [id number] 17:42:00* Test Item Value Reference Range Interpretation Comments GLUBED (test code = GLUBED) 124 mg/dL 74-106 H Performed by certified renovator machine operator at [facility] [id number] 16:55:00* Test Item Value Reference Range Interpretation Comments GLUBED (test code = GLUBED) 115 mg/dL 74-106 H Performed by certified renovator machine operator at [facility] [id number] 12:02:00* Test Item Value Reference Range Interpretation Comments GLUBED (test code = GLUBED) 213 mg/dL 74-106 H Performed by certified renovator machine operator at [facility] [id number] 05:39:00* Test Item Value Reference Range Interpretation Comments GLUBED (test code = GLUBED) 171 mg/dL 74-106 H Performed by certified renovator machine operator at [facility] BASIC METABOLIC [id number] 05:24:00* Test Item Value Reference Range Interpretation [...] CA) 8.7 mg/dL 8.5-10.1 N BASIC METABOLIC [id number] 05:18:00* Test Item Value Reference Range Interpretation [...] code = CA) mg/dL 8.5-10.1 CBC W/AUTO [id number] 05:18:00* Test Item Value Reference Range Interpretation [...] 0.0-0.1 N - XR FOOT 2 VIEWS [id number] 22:02:00 FAX: Ced Carrera [facility] [phone] [place]: St: [facility] FAX: Maikol Anand [facility] [phone] Name: MARLEN NOLAND [facility] : 1945 Age/S: 73/M [address] Unit #: [id number] Loc: [address] [place] [address] Phys: Ced Thomas [facility] Acct: [id number] Dis Date: Status: ADM IN PHONE #: [phone] Exam Date: 11/17/20182144 FAX #: [phone] Reason: GREAT TOE EXAMS: CPT CODE: [id number] XR FOOT 2 VIEWS 32569 CLINICAL HISTORY: GREAT TOE TECHNIQUE: AP, oblique, [...] Davis MD CC: Ced Thomas DPM; Maikol Anandh Technologi st: Marlen PORTILLO(R); Tasha Arnold(R) Trnscrd Date/Time/By: 11/17/2018 (2201) : By: [email or web address] Orig Print D/T: S: 11/17/2018 (9) PAGE 1 Signed Report [id number] 20:46:00* Test Item Value Reference Range Interpretation Comments GLUBED (test code = GLUBED) 102 mg/dL 74-106 N Performed by certified renovator machine operator at [facility] [id number] 17:06:00* Test Item Value Reference Range Interpretation Comments GLUBED (test code = GLUBED) 318 mg/dL 74-106 H Performed by certified renovator machine operator at [facility] [id number] 14:13:00* Test Item Value Reference Range Interpretation Comments TROPONIN-I (test code = TROPI) <0.015 ng/mL 0-0.045 N COMMENTS TO HEAD AND NECK SURGEON: COLLECT 3 HOURS AFTER PREVIOUS [id number] 12:47:00* Test Item Value Reference Range Interpretation Comments GLUBED (test code = GLUBED) 140 mg/dL 74-106 H Performed by certified renovator machine operator at [facility] [id number] 09:29:00* Test Item Value Reference Range Interpretation Comments TROPONIN-I (test code = TROPI) <0.015 ng/mL 0-0.045 N COMMENTS TO HEAD AND NECK SURGEON: COLLECT 3 HOURS AFTER PREVIOUS [id number] 07:42:00* Test Item Value Reference Range Interpretation Comments GLUBED (test code = GLUBED) 243 mg/dL 74-106 H Performed by certified renovator machine operator at [facility] [id number] 07:42:00* Test Item Value Reference Range Interpretation Comments GLUBED (test code = GLUBED) 493 mg/dL 74-106 H Performed by certified renovator machine operator at [facility] URINALYSIS [id number] 01:45:00* Test Item Value Reference Range Interpretation [...] AMORU) FEW #/LPF Urine Source? Clean CatchURINALYSIS [id number] 01:29:00* Test Item Value Reference Range Interpretation [...] Urine Source? Clean Catch- CT C-SPINE W/O [id number] 00:52:00 Name: MARLEN NOLAND [facility] : 1945 Age/S: 73 / M [address] [facility] Unit #: [id number] Loc: [place] [address] Phys: Raghav Mena MD Acct: [id number] Di s Date: Status: REG ER PHONE #: [phone] Exam Date: 11/16/2018 2311 FAX #: Reason: fall, headache EXAMS: CPT CODE: [id number] CT C-SPINE W/O CONTRAST 41476 AFTER HOURS SERVICE ON: 12:46 AM *Study available for review with full set of anaya ges on PACS at 12:[address] [...] 1 Signed Report (CONTINUED) Name: MARLEN NOLAND [facility] : 1945 Age/S: 73 / M [address] [facility] Unit #: [id number] Loc: [place] [address] Phys: Tamika Mena MD Acct: [id number] Dis Date: Status: REG ER PHONE #: [phone] Exam Date: 11/16/2018 2318 FAX #: [phone] Reason: fall, head ache EXAMS: CPT CODE: [id number] CT C-SPINE W/O CONTRAST 99819 <Continued> CC: Tamika Mena MD Technologist:RT JANES CTDI: DLP: Trnscb Date/Time: 11/17/2018 (51) t.SDR.MA50 Orig Print D/T: S: 11/17/2018 (54) PAGE 2 Signed Report - CT CHEST W/O [id number] 00:24:00 Name: MARLEN NOLAND [facility] : 1945 Age/S: 73 / M [address] [facility] Unit #: [id number] Loc: [place] [address] Phys: Tamika Mnea MD Acct: [id number] Dis Date: Status: REG ER PHONE #: [phone] Exam Date: 11/16/2018 2359 FAX #: [phone] Reason: fall, back pain, vomiting EXAMS: CPT CODE: [id number] CT CHEST W/O CONTRAST 99519 AFTER HOURS SERVICE ON: 11/17/2018 12:19 AM [...] 1 Signed Report (CONTINUED) Name: MARLEN NOLAND [facility] : 1945 Age/S: 73 / M [address] Unit #: [id number] Loc: [place] [address] Phys: Tamika Mena MD Acct: [id number] Dis Date: Status: REG ER PHONE #: [phone] Exam Date: 11/16/2018 7694 FAX #: [phone] Reason: fall, back pain, vomiting EXAMS: CPT CODE: [id number] CT CHEST W/O CONTRAST 14834 <Continued> History: fall, back pain, vomiting Technique: [...] Schneider M.D. CC: Tamika Mena MD Technologist:ZEE FAYE RT CTDI: DLP: Trnscb Date/Time: 11/17/2018 (23) t.SDR.MA50 Orig Print D/T: S: 11/17/2018 (0027) PAGE 2 Signed Report - CT ABD PELVIS W/O [id number] 00:24:00 Name: MARLEN NOLAND [facility] : 1945 Age/S: 73 / M [address] Unit #: [id number] Loc: [place] [address] Phys: Tamika Mena MD Acct: [id number] Dis Date: Status: REG ER PHONE #: [phone] Exam Date: 11/16/2018 2350 FAX #: [phone] Reason: fall, back pain, vomiting EXAMS: CPT CODE: [id number] CT ABD PELVIS W/O CONT 82124 AFTER HOURS SERVICE ON: 11/17/2018 12:19 AM [...] 1 Signed Report (CONTINUED) Name: MARLEN NOLAND [facility] : 1945 Age/S: 73 / M [address] Unit #: [id number] Loc: [place] [address] Phys: Tamika Mena MD Acct: [id number] Dis Date: Status: REG ER PHONE #: [phone] Exam Date: 11/16/2018 2359 FAX #: [phone] Reason: fall, back pain, vomiting EXAMS: CPT CODE: [id number] CT ABD PELVIS W/O CONT 40167 <Continued> History: fall, back pain, vomiting Technique: [...] Schneider M.D. CC: Tamika Mena MD Technologist:ZEE FAYE RT CTDI: DLP: Trnscb Date/Time: 11/17/2018 (0024) [email or web address] Orig Print D/T: S: 11/17/2018 (6664) PAGE 2 Signed Report B- TYPE NATRIURETIC [id number] 23:50:00* Test Item Value Reference Range Interpretation Comments B-TYPE NATRIURETIC PEPTIDE (test code = BNP) 27.47 pgram/mL 0-100 N - CT HEAD/BRAIN W/O [id number] 23:42:00 Name: MARLEN NOLAND [facility] : 1945 Age/S: 73 / M [facility] Unit #: [id number] Loc: [place] [address] Phys: Tamika Mena MD Acct: [id number] Dis Date: Status: REG ER PHONE #: [phone] Exam Date: 11/16/2018 2310 FAX #: [phone] Reason: fall, headache EXAMS: CPT CODE: [id number] CT HEAD/BRAIN W/O CONT 09005 AFTER HOURS SERVICE ON: 11/16/2018 11:42 PM [...] Impression: No acute intracranial CT findings. at 3402 Reported and signed by: Jan Schneider M.D. CC: Tamika Mena MD Technologist:ZEE FAYE, RT CTDI: DLP: Trnscb Date/Time: 11/16/2018 (0527) Alexandra.[email or web address] Orig Print D/T: S: 11/16/2018 (5780) PAGE 1 Signed Report PROCALCITONIN (PCT)2018-11-16 23:41:00* [...] into account the patients history. BASIC METABOLIC [id number] 23:38:00* Test Item Value Reference Range Interpretation [...] CA) 7.9 mg/dL 8.5-10.1 L HEPATIC FUNCTION [id number] 23:38:00* Test Item Value Reference Range Interpretation [...] reference range due to change in reagent. [id number] 23:38:00* Test Item Value Reference Range Interpretation Comments LIPASE (test code = LIP) 104 U/L 73.0-393.0 N [id number] 23:38:00* Test Item Value Reference Range Interpretation Comments MAGNESIUM (test code = MAG) 1.3 mg/dL 1.8-2.4 L [id number] 23:38:00* Test Item Value Reference Range Interpretation Comments TROPONIN-I (test code = TROPI) <0.015 ng/mL 0-0.045 N LACTIC [id number] 23:38:00* Test Item Value Reference Range Interpretation Comments LACTIC ACID (test code = LACT) 1.2 mmol/L 0.4-1.9 N - XR CHEST 1 [id number] 23:32:00 FAX: Tamika Rodriguez [phone] [place]: B St: REG Name: MARLEN RODGERS [facility] : [birth year] Age/S: 73/M Juan Alberto Cheng Unit #: [id number] Loc: [place] [address] Phys: Tamika Mena MD Acct: [id number] Dis Date: Status: REG ER PHONE #: [phone] Exam Date: 11/16/2018 2313 FAX #: [phone] Reason: WEAKNESS EXAMS: CPT CODE: [id number] XR CHEST 1 V 38052 REASON FOR EXAM: WEAKNESS Exam Order Date: [...] ZEE FAYE, RT Trnscrd Date/Ángel e/By: 11/16/2018 (0753) : By: [email or web address] Orig Print D/T: S: 11/16/2018 (4921) PAGE 1 Signed Report BASIC METABOLIC [id number] 23:26:00* Test Item Value Reference Range Interpretation [...] code = CA) mg/dL 8.5-10.1 HEPATIC FUNCTION [id number] 23:26:00* Test Item Value Reference Range Interpretation [...] TOTAL (test code = ALKP) IUnit/L 45-117 [id number] 23:26:00* Test Item Value Reference Range Interpretation Comments LIPASE (test code = LIP) U/L 73.0-393.0 [id number] 23:26:00* Test Item Value Reference Range Interpretation Comments MAGNESIUM (test code = MAG) mg/dL 1.8-2.4 [id number] 23:26:00* Test Item Value Reference Range Interpretation Comments TROPONIN-I (test code = TROPI) ng/mL 0-0.045 PROTHROMBIN [id number] 23:23:00* Test Item Value Reference Range Interpretation [...] (2.5-3.5) IS PATIENT ON ANTICOAGULANTS? NTHROMBOPLASTIN TIME [id number] 23:23:00* Test Item Value Reference Range Interpretation Comments THROMBOPLASTIN TIME PARTIAL (test code = PTT) 28.8 seconds 25.0-36. 5 N IS PATIENT ON ANTICOAGULANTS? NCBC W/O [id number] 23:10:00* Test Item Value Reference Range Interpretation [...] MPV) 9.5 fL 6.7-11.0 N POC LACTIC [id number] 23:03:00* Test Item Value Reference Range Interpretation Comments POC LACTIC ACID (test code = POCLAC) 1.02 MMOL/L 0.4-2.2 N POCT-GLUCOSE [id number] 07:40:00* Test Item Value Reference Range Interpretation Comments POC-GLUCOSE METER (BEAKER) (test code = 1538) 183 mg/dL 70-[address] [facility] [address] [facility] [address] POCT-GLUCOSE [id number] 21:37:00* Test Item Value Reference Range Interpretation Comments POC-GLUCOSE METER (BEAKER) (test code = 1538) 284 mg/dL 70-[address] [facility] [address] [facility] [address] MR, SPINE, LUMBAR, WITHOUT [id number] 17:25:00FINAL REPORT MRI lumbar spine without contrast [...] Verified Date/Time: 06/11/2018 17 :25:41 Reading Location: [facility] C013V Neuro Reading Room Electronically dariel d by: SHAYNA VERMA M.D. on 06/11/2018 05:25 PM POCT-GLUCOSE [id number] 12:52:00* Test Item Value Reference Range Interpretation Comments POC-GLUCOSE METER (BEAKER) (test code = 1538) 178 mg/dL 70-110 H TESTED AT [address] [address] HEMOGLOBIN [id number] 09:23:00* Test Item Value Reference Range Interpretation Comments HEMOGLOBIN A1C (BEAKER) (test code = 368) 7.4 % 4.3-6.1 H POCT-GLUCOSE [id number] 07:02:00* Test Item Value Reference Range Interpretation Comments POC-GLUCOSE METER (BEAKER) (test code = 1538) 236 mg/dL 70-110 H TESTED AT [address] [address] MR, MRA, BRAIN, WITHOUT [id number] 04:57:00Reason for exam:->Ischemic Stroke EvaluationFINAL REPORT MRA head and neck without contrast. CLINICAL HISTORY: Stroke. Ischemic stroke evaluation. COMPARISON: MRA head and neck 06/19/[address] angiography of head and neck 04/29/2017. TECHNIQUE: Two- and three-dimensional dxkj-li-cebwxn MRA images of the intra- and extracranial [...] is antegrade in both vertebral arteries. MRA red cliff of [place]: There is no vessel occlusion [...] occlusion or flow-limiting stenosis. Signed: Isaiah Lanza Verified Date/Time: 06/11/2018 04:57:39 Reading Location: [address] Body Reading Room , MRA, NECK, WITHOUT IV [id number] 04:57:00Reason for exam:-> Ischemic Stroke EvaluationFINAL REPORT MRA head and neck without contrast. CLINICAL HISTORY: Stroke. Ischemic stroke evaluation. COMPARISON: MRA head and neck 06/19/[address] angiography of head and neck 04/29/2017. TECHNIQUE: Two- and three-dimensional mcya-fl-rmfzmk MRA images of the intra- and extracranial [...] is antegrade in both vertebral arteries. MRA red [place]: There is no vessel occlusion [...] occlusion or flow-limiting stenosis. Signed: Isaiah Lanza Verified Date/Time: 06/11/2018 04:57:39 Reading Locatio n: [facility] B1 C013Y CT Body Reading Room , BRAIN, WITHOUT [id number] 04:42:00 Reason for exam:->Ischemic Stroke EvaluationFINAL REPORT [...] White matter microvascular ischemic changes. Signed: Isaiah Lanza MDReport Verified Date/Time: 06/11/2018 04:42:05 Reading Location: [facility] C013Y CT Body Reading Room D [id number] 03:33:00* Test Item Value Reference Range Interpretation [...] 160-189 Very High >=190 Fasting BASIC METABOLIC [id number] 03:33:00* Test Item Value Reference Range Interpretation [...] IS NOT APPLICABLE FOR DIALYSIS PATIENTS. FastingPOCT-GLUCOSE [id number] 21:25:00* Test Item Value Reference Range Interpretation Comments POC-GLUCOSE METER (STEPHONAKER) (test code = 1538) 172 mg/dL 70-[address] [facility] [address] [facility] [address] POCT-GLUCOSE [id number] 18:35:00* Test Item Value Reference Range Interpretation Comments POC-GLUCOSE METER (STEPHONAKER) (test code = 1538) 114 mg/dL 70-110 H TESTED AT [address] [address] [address], BRAIN, WITHOUT [id number] 14:05:00Reason for exam:->headacheWhat is the patient's sedation [...] Verif ied Date/Time: 06/10/2018 14:05:12 Reading Location: [facility] Radiology Re ading Room 02: 05 PM RAD, CHEST, 1 VIEW, NON [id number] 13:26:00Reason for exam:->CHEST PAINShould this be performed at the bedside?->YesFINAL REPORT AP chest, two images HISTORY: Chest pain COMPARISON: 01/22/2018 IMPRESSION:Intact skeleton. Status post sternotomy. Heart size normal. Left lung clear. Right hemidiaphragm elevation. Adjacent opacity suggestive of chronic atelectasis or scarring, similar to previous. No effusion or pneumothorax. Signed: Yrn Ceron Verified Date/Time: 06/10/2018 13:26:19 Reading Location: [address] Radiology Reading Room ONIN [id number] 13:24:00* Test Item Value Reference Range Interpretation Comments TROPONIN I (JAEL) (test code = 397) < ng/mL 0.00-0.03 [...] Reference Range Interpretation Comments B-TYPE NATRIURETIC PEPTIDE (STEPHONAKER) (test code = 700) 13 pg/mL 0-100 BASIC METABOLIC [id number] 13:15:00* Test Item Value Reference Range Interpretation [...] GFR IS NOT APPLICABLE FOR DIALYSIS PATIENTS. PT/[id number] 13:05:00* Test Item Value Reference Range Interpretation [...] mechanical heart valves.CBC W/PLT COUNT & AUTO [id number] 12:59:00* Test Item Value Reference Range Interpretation [...] code = 2801) 0 % 0-1 BLOOD [id number] 16:05:00* Test Item Value Reference Range Interpretation Comments CULTURE (BEAKER) (test code = 1095) A From Aerobic Bottle Only Cellulosimicrobium cellulansIdentification performed by:[facility], [address] [place] [address] GRAM STAIN RESULT (BEAKER) (test code = 1123) From aer obic bottle only: gram positive rods BLOOD [id number] 06:00:00* Test Item Value Reference Range Interpretation Comments CULTURE (BEAKER) (test code = 1095) No growth in 5 days POCT-GLUCOSE [id number] 11:32:00* Test Item Value Reference Range Interpretation Comments POC-GLUCOSE METER (BEAKER) (test code = 1538) 251 mg/dL 70-[address] [facility] [address] [facility] [address] VANCOMYCIN LEVEL, [id number] 09:36:00* Test Item Value Reference Range Interpretation Comments VANCOMYCIN TROUGH (BEAKER) (test code = 522) 18.0 ug/mL 10.0-20.0 POCT-GLUCOSE [id number] 08:03:00* Test Item Value Reference Range Interpretation Comments POC-GLUCOSE METER (BEAKER) (test code = 1538) 258 mg/dL 70-[address] [facility] [address] [facility] [address] VANCOMYCIN LEVEL, [id number] 04:57:00* Test Item Value Reference Range Interpretation Comments VANCOMYCIN TROUGH (BEAKER) (test code = 522) 19.8 ug/mL 10.0-20.0 [id number] 04:55:00* Test Item Value Reference Range Interpretation Comments MAGNESIUM (BEAKER) (test code = 627) 1.9 mg/dL 1.6-2.6 BASIC METABOLIC [id number] 04:55:00* Test Item Value Reference Range Interpretation [...] DIALYSIS PATIENTS. CBC W/PLT COUNT & AUTO [id number] 04:37:00* Test Item Value Reference Range Interpretation [...] 2801) 0 % 0-1 BLOOD CULTURE IDENTIFICATION [id number] 00:32:00* Test Item Value Reference Range Interpretation Comments LISTERIA MONOCYTOGENES (test code = 6514112) Not detected Not detec bernice STAPHYLOCOCCUS (test code = 1194779) Not detected Not detected STAPHYLOCOCCUS AUREUS (test code = 2573744) Not detected Not detect ed STREPTOCOCCUS (test code = 7607398) Not detected Not detected STREPTOCOCCUS AGALACTIAE (GROUP B) (test code = 1851864) Not detected Not detected STREPTOCOCCUS PNEUMONIAE (test code = 1044646) Not detected Not det ected STREPTOCOCCUS PYOGENES (GROUP A) (test code = 5497202) Not d etected Not detected ACINETOBACTER BAUMANNII (test code = 2749591) Not detected Not dete cted HAEMOPHILUS INFLUENZAE (test code = 0540461) Not detected Not detec bernice NEISSERIA MENINGITIDIS (test code = 7154048) Not detected Not detec bernice ENTEROBACTERIACEAE (test code = 9268494) Not detected Not detected ENTEROBACTER CLOACOE COMPLEX (test code = 6004273) Not detected Not detected KLEBSIELLA OXYTOCA (test code = 4024550) Not detected Not detected KLEBSIELLA PNEUMONIAE (test code = 1650) Not detected Not detected PROTEUS (test code = 0613171) Not detected Not detected SERRATIA MARCESCENS (test code = 9219464) Not detected Not detected PORTIA ALBICANS (test code = 4265704) Not detected Not detected PORTIA GLABRATA (test code = 2010451) Not detected Not detected PORTIA KRUSEI (test code = 5813454) Not detected Not detected PORTIA PARAPSILOSIS (test code = 9530813) Not detected Not detecte d PORTIA TROPICALIS (test code = 6897727) Not detected Not detected ESCHERICHIA COLI (test code = 7377866) Not detected Not detected METHICILLIN-RESISTANCE GENE (test code = 5150578) Not detected VANCOMYCIN-RESISTANCE GENE (test code = 1654918) Not d etected CARBAPENEM-RESISTANCE GENE (test code = 4911635) Not d etected ENTEROCOCCUS-BEAKER (test code = 1031299) Not detected Not detected PSEUDOMONAS AERUGINOSA-BEAKER (test code = 3973269) Not detected No t detected Other bacteria and resistance markers not targeted by this PCR panel cannot be e xcluded; therefore clinical correlation and follow up of serology, culture resul ts, and other molecular studies is required. The results are not intended to be used as the sole means for clinical diagnosis or patient management decisions. T his sample was tested at the [facility] using the Nexx SystemsArray Blood Culture ID Panel. It is FDA cleared and has been verified and approved by the [facility] for clinical use. Thi s laboratory is CLIA-certified and [employer] (CAP)-accred ited to perform high complexity testing.POCT-GLUCOSE [id number] 20:07:00* Test Item Value Reference Range Interpretation Comments POC-GLUCOSE METER (BEAKER) (test code = 1538) 274 mg/dL 70-110 H TESTED AT [address] [address] POCT-GLUCOSE [id number] 19:06:00* Test Item Value Reference Range Interpretation Comments POC-GLUCOSE METER (BEAKER) (test code = 1538) 200 mg/dL 70-110 H TESTED AT [address] [address] POCT-GLUCOSE [id number] 18:09:00* Test Item Value Reference Range Interpretation Comments POC-GLUCOSE METER (BEAKER) (test code = 1538) 202 mg/dL 70-110 H TESTED AT [address] [address] POCT-GLUCOSE [id number] 18:09:00* Test Item Value Reference Range Interpretation Comments POC-GLUCOSE METER (BEAKER) (test code = 1538) 188 mg/dL 70-110 H TESTED AT [address] [address] POCT-GLUCOSE [id number] 17:01:00* Test Item Value Reference Range Interpretation Comments POC-GLUCOSE METER (BEAKER) (test code = 1538) 215 mg/dL 70-110 H TESTED AT [address] [address] POCT-GLUCOSE [id number] 15:11:00* Test Item Value Reference Range Interpretation Comments POC-GLUCOSE METER (BEAKER) (test code = 1538) 188 mg/dL 70-110 H TESTED AT [address] [address] [id number] 14:37:00* Test Item Value Reference Range Interpretation Comments PROCALCITONIN (BEAKER) (test code = 3036) < ng/mL <0.05 SEPSIS RISK (ng/mL)Low: 0.05-0.50Intermediate: 0.51-2.00High: > =2.01TROPONIN [id number] 14:28:00* Test Item Value Reference Range Interpretation [...] acidosis, acute neurological disease, and per sistent tachyarrhythmia.[id number] 14:21:00* Test Item Value Reference Range Interpretation Comments MAGNESIUM (BEAKER) (test code = 627) 1.8 mg/dL 1.6-2.6 BASIC METABOLIC [id number] 14:21:00* Test Item Value Reference Range Interpretation [...] FOR DIALYSIS PATIENTS. LACTIC ACID, VENOUS, WHOLE [id number] 14:14:00* Test Item Value Reference Range Interpretation Comments LACTATE BLOOD VENOUS (2) (BEAKER) (test code = 2872) 2.1 mmol/L 0 .5-2.2 Specimen slightly hemolyzed Effective 09/04/2015: Units/Reference Range ChangeNew: 0.5-2.2 mmol/L Previous: 5 -20 mg/dLPOCT-GLUCOSE [id number] 14:13:00* Test Item Value Reference Range Interpretation Comments POC-GLUCOSE METER (BEAKER) (test code = 1538) 118 mg/dL 70-110 H TESTED AT [address] [address] POCT-GLUCOSE [id number] 13:24:00* Test Item Value Reference Range Interpretation Comments POC-GLUCOSE METER (BEAKER) (test code = 1538) 209 mg/dL 70-110 H TESTED AT [address] [address] POCT-GLUCOSE [id number] 12:35:00* Test Item Value Reference Range Interpretation Comments POC-GLUCOSE METER (BEAKER) (test code = 1538) 104 mg/dL 70-110 TESTED AT [address] [address] POCT-GLUCOSE [id number] 12:10:00* Test Item Value Reference Range Interpretation Comments POC-GLUCOSE METER (BEAKER) (test code = 1538) 149 mg/dL 70-110 H TESTED AT [address] [address] POCT-GLUCOSE [id number] 11:03:00* Test Item Value Reference Range Interpretation Comments POC-GLUCOSE METER (BEAKER) (test code = 1538) 116 mg/dL 70-110 H TESTED AT [address] [address] POCT-GLUCOSE [id number] 10:30:00* Test Item Value Reference Range Interpretation Comments POC-GLUCOSE METER (BEAKER) (test code = 1538) 230 mg/dL 70-110 H TESTED AT [address] [address] POCT-GLUCOSE [id number] 09:31:00* Test Item Value Reference Range Interpretation Comments POC-GLUCOSE METER (BEAKER) (test code = 1538) 250 mg/dL 70-110 H TESTED AT [place] [address] [facility] [address] POCT-GLUCOSE [id number] 08:16:00* Test Item Value Reference Range Interpretation Comments POC-GLUCOSE METER (BEAKER) (test code = 1538) 257 mg/dL 70-[address] [facility] [address] [facility] [address] [id number] 06:04:00* Test Item Value Reference Range Interpretation Comments MAGNESIUM (BEAKER) (test code = 627) 1.8 mg/dL 1.6-2.6 BASIC METABOLIC [id number] 06:04:00* Test Item Value Reference Range Interpretation [...] DIALYSIS PATIENTS. CBC W/PLT COUNT & AUTO [id number] 04:04:00* Test Item Value Reference Range Interpretation [...] code = 2801) 0 % 0-1 POCT-GLUCOSE [id number] 21:20:00* Test Item Value Reference Range Interpretation Comments POC-GLUCOSE METER (BEAKER) (test code = 1538) 313 mg/dL 70-[address] [facility] [address] [facility] [address] [id number] 05:10:00* Test Item Value Reference Range Interpretation Comments MAGNESIUM (BEAKER) (test code = 627) 1.6 mg/dL 1.6-2.6 BASIC METABOLIC [id number] 05:10:00* Test Item Value Reference Range Interpretation [...] FOR DIALYSIS PATIENTS. LACTIC ACID, VENOUS, WHOLE [id number] 04:52:00* Test Item Value Reference Range Interpretation Comments LACTATE BLOOD VENOUS (2) (BEAKER) (test code = 2872) 1.6 mmol/L 0 .5-2.2 Effective 09/04/2015: Units/Reference Range ChangeNew: 0.5-2.2 mmol/L Previous: 5 -20 mg/dLCBC W/PLT COUNT & AUTO [id number] 04:44:00* Test Item Value Reference Range Interpretation [...] 1 % 0-1 URINALYSIS W/ REFLEX URINE [id number] 10:07:00* Test Item Value Reference Range Interpretation [...] < /HPF SOURCE(BEAKER) (test code = 2795) [id number] 05:42:00* Test Item Value Reference Range Interpretation Comments MAGNESIUM (BEAKER) (test code = 627) 1.6 mg/dL 1.6-2.6 BASIC METABOLIC [id number] 05:42:00* Test Item Value Reference Range Interpretation [...] DIALYSIS PATIENTS. CBC W/PLT COUNT & AUTO [id number] 05:29:00* Test Item Value Reference Range Interpretation [...] 1 % 0-1 LACTIC ACID, VENOUS, WHOLE [id number] 05:22:00* Test Item Value Reference Range Interpretation Comments LACTATE BLOOD VENOUS (2) (BEAKER) (test code = 2872) 0.6 mmol/L 0 .5-2.2 Effective 09/04/2015: Units/Reference Range ChangeNew: 0.5-2.2 mmol/L Previous: 5 -20 mg/dLBLOOD GAS, [id number] 05:03:00* Test Item Value Reference Range Interpretation [...] code = 1819) 30.0 % POCT-LACTIC ACID, [id number] 23:56:00* Test Item Value Reference Range Interpretation Comments POC-LACTIC ACID, VENOUS (BEAKER) (test code = 2805) 1.1 mmol/L 0. 9-1.[address] [facility] [address] [facility] [address] CT, BRAIN, WITHOUT [id number] 23:32:00Reason for exam:->headacheWhat is the patient's sedation [...] Verified Aubrey e/Time: 01/22/2018 23:32:29 Reading Location: [facility] B1 C013Y CT Body Reading Room D GAS, [id number] 22:43:00* Test Item Value Reference Range Interpretation [...] H RAD, CHEST, PA OR AP, 1 [id number] 22:31:00Reason for exam:->chest painShould this be performed [...] worsening pneumonia. Signed: Zach de jesus JR, Marlen Collins Verified Date/Time: 01/22/2018 22:31:12 Reading Lo cation: [facility] B1 C013Y CT Body Reading Room TINE KINASE (CK), TOTAL AND [id number] 22:17:00* Test Item Value Reference Range Interpretation Comments CREATINE KINASE TOTAL (BEAKER) (test code = 380) 115 U/L 29-20 0 CREATINE KINASE-MB (BEAKER) (test code = 750) 1.5 ng/mL 0.0-6.6 CREATINE KINASE-MB INDEX (BEAKER) (test code = 395) 1.3 % CK-MB Reference Range:<6.7 Normal6.7-10.0 Borderline>10.0 Abnormal TROPONIN [id number] 22:17:00* Test Item Value Reference Range Interpretation [...] neurological disease, and per sistent tachyarrhythmia.BASIC METABOLIC [id number] 22:10:00* Test Item Value Reference Range Interpretation [...] GFR IS NOT APPLICABLE FOR DIALYSIS PATIENTS. PT/[id number] 22:02:00* Test Item Value Reference Range Interpretation [...] mechanical heart valves.CBC W/PLT COUNT & AUTO [id number] 22:01:00* Test Item Value Reference Range Interpretation [...] code = 2801) 1 % 0-1 POCT-GLUCOSE [id number] 12:05:00* Test Item Value Reference Range Interpretation Comments POC-GLUCOSE METER (BEAKER) (test code = 1538) 221 mg/dL 70-110 H TESTED AT [place] [address] [facility] [address] HEMOGLOBIN [id number] 08:29:00* Test Item Value Reference Range Interpretation Comments HEMOGLOBIN A1C (BEAKER) (test code = 368) 7.6 % 4.3-6.1 H POCT-GLUCOSE [id number] 08:13:00* Test Item Value Reference Range Interpretation Comments POC-GLUCOSE METER (BEAKER) (test code = 1538) 189 mg/dL 70-110 H TESTED AT [address] [address] BASIC METABOLIC [id number] 04:59:00* Test Item Value Reference Range Interpretation [...] DIALYSIS PATIENTS. CBC W/PLT COUNT & AUTO [id number] 04:34:00* Test Item Value Reference Range Interpretation [...] = 2801) 2 % 0-1 H POCT-GLUCOSE [id number] 23:13:00* Test Item Value Reference Range Interpretation Comments POC-GLUCOSE METER (BEAKER) (test code = 1538) 297 mg/dL 70-110 H TESTED AT [address] [address] POCT-GLUCOSE [id number] 17:26:00* Test Item Value Reference Range Interpretation Comments POC-GLUCOSE METER (BEAKER) (test code = 1538) 299 mg/dL 70-110 H TESTED AT [address] [address] POCT-GLUCOSE [id number] 11:59:00* Test Item Value Reference Range Interpretation Comments POC-GLUCOSE METER (BEAKER) (test code = 1538) 267 mg/dL 70-110 H TESTED AT [address] [address] POCT-GLUCOSE [id number] 07:46:00* Test Item Value Reference Range Interpretation Comments POC-GLUCOSE METER (BEAKER) (test code = 1538) 277 mg/dL 70-110 H TESTED AT [address] [address] POCT-GLUCOSE [id number] 21:54:00* Test Item Value Reference Range Interpretation Comments POC-GLUCOSE METER (BEAKER) (test code = 1538) 324 mg/dL 70-110 H Notified AUBREE BIGGS/TESTED AT [address] [address] POCT-GLUCOSE [id number] 18:31:00* Test Item Value Reference Range Interpretation Comments POC-GLUCOSE METER (BEAKER) (test code = 1538) 454 mg/dL 70-110 HH TESTED AT [address] [address] POCT-GLUCOSE [id number] 17:35:00* Test Item Value Reference Range Interpretation Comments POC-GLUCOSE METER (BEAKER) (test code = 1538) 417 mg/dL 70-110 HH Notified AUBREE BIGGS/TESTED AT [address] [address] POCT-GLUCOSE [id number] 12:18:00* Test Item Value Reference Range Interpretation Comments POC-GLUCOSE METER (BEAKER) (test code = 1538) 309 mg/dL 70-110 H Notified AUBREE BIGGS/TESTED AT [address] [address] POCT-GLUCOSE [id number] 08:04:00* Test Item Value Reference Range Interpretation Comments POC-GLUCOSE METER (BEAKER) (test code = 1538) 380 mg/dL 70-110 H Notified [facility]/TESTED AT [address] [address] POCT-GLUCOSE [id number] 00:00:00* Test Item Value Reference Range Interpretation Comments POC-GLUCOSE METER (BEAKER) (test code = 1538) 346 mg/dL 70-110 H Notified [facility]/TESTED AT [address] [address] POCT-GLUCOSE [id number] 18:44:00* Test Item Value Reference Range Interpretation Comments POC-GLUCOSE METER (BEAKER) (test code = 1538) 351 mg/dL 70-110 H TESTED AT [address] [address] POCT-GLUCOSE [id number] 12:22:00* Test Item Value Reference Range Interpretation Comments POC-GLUCOSE METER (BEAKER) (test code = 1538) 378 mg/dL 70-110 H TESTED AT [address] [address] POCT-GLUCOSE [id number] 07:52:00* Test Item Value Reference Range Interpretation Comments POC-GLUCOSE METER (BEAKER) (test code = 1538) 276 mg/dL 70-[address] [facility] [address] [facility] [address] BASIC METABOLIC [id number] 07:04:00* Test Item Value Reference Range Interpretation [...] DIALYSIS PATIENTS. CBC W/PLT COUNT & AUTO [id number] 06:42:00* Test Item Value Reference Range Interpretation [...] code = 2801) 1 % 0-1 POCT-GLUCOSE [id number] 22:24:00* Test Item Value Reference Range Interpretation Comments POC-GLUCOSE METER (BEAKER) (test code = 1538) 296 mg/dL 70-110 H TESTED AT [address] [address] POCT-GLUCOSE [id number] 17:11:00* Test Item Value Reference Range Interpretation Comments POC-GLUCOSE METER (BEAKER) (test code = 1538) 290 mg/dL 70-110 H TESTED AT [address] [address] POCT-GLUCOSE [id number] 13:02:00* Test Item Value Reference Range Interpretation Comments POC-GLUCOSE METER (BEAKER) (test code = 1538) 248 mg/dL 70-110 H TESTED AT [address] [address] POCT-GLUCOSE [id number] 07:40:00* Test Item Value Reference Range Interpretation Comments POC-GLUCOSE METER (BEAKER) (test code = 1538) 190 mg/dL 70-110 H TESTED AT [address] [address] POCT-GLUCOSE [id number] 22:42:00* Test Item Value Reference Range Interpretation Comments POC-GLUCOSE METER (BEAKER) (test code = 1538) 317 mg/dL 70-110 H TESTED AT [address] [address] POCT-GLUCOSE [id number] 17:46:00* Test Item Value Reference Range Interpretation Comments POC-GLUCOSE METER (BEAKER) (test code = 1538) 244 mg/dL 70-110 H TESTED AT [address] [address] POCT-GLUCOSE [id number] 11:36:00* Test Item Value Reference Range Interpretation Comments POC-GLUCOSE METER (BEAKER) (test code = 1538) 256 mg/dL 70-110 H TESTED AT [address] [address] POCT-GLUCOSE [id number] 07:53:00* Test Item Value Reference Range Interpretation Comments POC-GLUCOSE METER (BEAKER) (test code = 1538) 122 mg/dL 70-110 H TESTED AT [address] [address] POCT-GLUCOSE [id number] 22:31:00* Test Item Value Reference Range Interpretation Comments POC-GLUCOSE METER (BEAKER) (test code = 1538) 244 mg/dL 70-110 H TESTED AT [address] [address] POCT-GLUCOSE [id number] 17:42:00* Test Item Value Reference Range Interpretation Comments POC-GLUCOSE METER (BEAKER) (test code = 1538) 226 mg/dL 70-110 H TESTED AT [address] [address] POCT-GLUCOSE [id number] 12:52:00* Test Item Value Reference Range Interpretation Comments POC-GLUCOSE METER (BEAKER) (test code = 1538) 120 mg/dL 70-110 H TESTED AT [address] [address] POCT-GLUCOSE [id number] 09:48:00* Test Item Value Reference Range Interpretation Comments POC-GLUCOSE METER (BEAKER) (test code = 1538) 139 mg/dL 70-110 H TESTED AT [address] [address] TROPONIN [id number] 08:27:00* Test Item Value Reference Range Interpretation [...] acute neurological disease, and per sistent tachyarrhythmia.POCT-GLUCOSE [id number] 08:17:00* Test Item Value Reference Range Interpretation Comments POC-GLUCOSE METER (BEAKER) (test code = 1538) 122 mg/dL 70-110 H TESTED AT [address] [address] POCT-GLUCOSE [id number] 06:23:00* Test Item Value Reference Range Interpretation Comments POC-GLUCOSE METER (BEAKER) (test code = 1538) 134 mg/dL 70-110 H TESTED AT [address] [address] POCT-LACTIC ACID, [id number] 00:57:00* Test Item Value Reference Range Interpretation Comments POC-LACTIC ACID, VENOUS (BEAKER) (test code = 2805) 1.2 mmol/L 0. 9-1.7 TESTED AT [address] [address] RAPID DRUG SCREEN, [id number] 22:28:00* Test Item Value Reference Range Interpretation [...] Chain of custody not maint ained. Some gpwf-oen-hcrioux medications, as well as adulterants, may cause inac curate results. Clinical correlation should be applied. A more comprehensive wally g screen or confirmation of a detected drug may be performed upon request. CREATINE KINASE (CK), TOTAL AND [id number] 22:05:00* Test Item Value Reference Range Interpretation Comments CREATINE KINASE TOTAL (BEAKER) (test code = 380) 67 U/L 29-20 0 CREATINE KINASE-MB (BEAKER) (test code = 750) 0.9 ng/mL 0.0-6.6 CREATINE KINASE-MB INDEX (BEAKER) (test code = 395) 1.3 % CK-MB Reference Range:<6.7 Normal6.7-10.0 Borderline>10.0 Abnormal TROPONIN [id number] 22:05:00* Test Item Value Reference Range Interpretation [...] and per sistent tachyarrhythmia.URINALYSIS W/ REFLEX URINE [id number] 22:03:00* Test Item Value Reference Range Interpretation [...] 516) < /HPF SOURCE(BEAKER) (test code = 2794) B-TYPE NATRIURETIC FACTOR (BNP)2018-01-10 22:01:00* Test Item Value Reference Range Interpretation Comments B-TYPE NATRIURETIC PEPTIDE (BEAKER) (test code = 700) 92 pg/mL 0-100 [id number] 21:59:00* Test Item Value Reference Range Interpretation Comments LIPASE (BEAKER) (test code = 749) 21 U/L 8-78 COMPREHENSIVE METABOLIC [id number] 21:59:00* Test Item Value Reference Range Interpretation [...] IS NOT APPLICABLE FOR DIALYSIS PATIENTS. KETONE, [id number] 21:49:00* Test Item Value Reference Range Interpretation Comments KETONES, BLOOD (BEAKER) (test code = 1103) 0.1 mmol/L <0.4 CBC W/PLT COUNT & AUTO [id number] 21:46:00* Test Item Value Reference Range Interpretation [...] = 2801) 1 % 0-1 POCT-LACTIC ACID, [id number] 21:40:00* Test Item Value Reference Range Interpretation Comments POC-LACTIC ACID, VENOUS (BEAKER) (test code = 2805) 2.3 mmol/L 0. 9-1.[address] [facility] [address] [facility] [address] BLOOD GAS, [id number] 21:39:00* Test Item Value Reference Range Interpretation [...] 21.0 % RAD, CHEST, 1 VIEW, NON [id number] 21:30:00Reason for exam:->SHORTNESS OF BREATHShould this be performed at the bedside?->YesFINAL REPORT AP chest HISTORY: Shortness of breath COMPARISON: 04/28/2017 IMPRESSION:Status post median sternotomy. Heart size upper limits of normal. Thoracic aortic ectasia. Right hemidiaphragm elevation. Right basilar opacity suggests atelectasis or scarring. Left lung clear. No pneumothorax. Signed: Yrn Ceron [facility] Verified Date/Time: 01/10/2018 21:30:44 Reading Location: [facility] C013W Consult Reading Room -GLUCOSE [id number] 21:15:00* Test Item Value Reference Range Interpretation Comments POC-GLUCOSE METER (BEAKER) (test code = 1538) 221 mg/dL 70-110 H TESTED AT [address] [address] POCT-GLUCOSE [id number] 07:36:00* Test Item Value Reference Range Interpretation Comments POC-GLUCOSE METER (BEAKER) (test code = 1538) 174 mg/dL 70-110 H TESTED AT [address] [address] POCT-GLUCOSE [id number] 21:00:00* Test Item Value Reference Range Interpretation Comments POC-GLUCOSE METER (BEAKER) (test code = 1538) 130 mg/dL 70-110 H TESTED AT [address] [address] POCT-GLUCOSE [id number] 17:32:00* Test Item Value Reference Range Interpretation Comments POC-GLUCOSE METER (BEAKER) (test code = 1538) 105 mg/dL 70-[address] [facility] [address] [facility] [address] POCT-GLUCOSE [id number] 16:50:00* Test Item Value Reference Range Interpretation Comments POC-GLUCOSE METER (JAEL) (test code = 1538) 104 mg/dL 70-[address] [facility] [address] [facility] [address] PET, CARDIAC PERFUSION MULTIPLE STUDIES, REST AND [id number] 16:08:00 Reason for exam:->Pre-op, atypical chest pain, CADFINAL REPORT PROCEDURE: Rest/Stress MYOCARDIAL PERFUSION PET with regadenoson\\XA9\\CPT CODE: [id number]: Atypical chest pain, CAD, preoperative evaluationHISTORY: Cardiac [...] Verified Date/Time: 04/30/2017 16 :08:35 Reading Location: [address] [address] Reading Room Electronicall y signed by: ANGEL BRO MD on 04/30/2017 04:08 PM POCT-GLUCOSE METER 2017-04-30 12:26:00* Test Item Value Reference Range Interpretation Comments POC-GLUCOSE METER (BEAKER) (test code = 1538) 121 mg/dL 70-110 H TESTED AT [address] [address] POCT-GLUCOSE [id number] 08:14:00* Test Item Value Reference Range Interpretation Comments POC-GLUCOSE METER (BEAKER) (test code = 1538) 121 mg/dL 70-110 H TESTED AT [place] [id number] [facility] [address] POCT-GLUCOSE [id number] 08:14:00* Test Item Value Reference Range Interpretation Comments POC-GLUCOSE METER (BEAKER) (test code = 1538) 44 mg/dL 70-110 L Notified AUBREE BIGGS/TESTED AT [address] [address] POCT-GLUCOSE [id number] 21:16:00* Test Item Value Reference Range Interpretation Comments POC-GLUCOSE METER (BEAKER) (test code = 1538) 205 mg/dL 70-110 H TESTED AT [place] [id number] [facility] [address] POCT-GLUCOSE [id number] 17:27:00* Test Item Value Reference Range Interpretation Comments POC-GLUCOSE METER (BEAKER) (test code = 1538) 154 mg/dL 70-110 H TESTED AT [address] [address] [address], CTANGIO [id number] 14:04:00Reason for exam:->Symptoms onset less than 6 [...] cynthia stenoses. There is moderate left mid FLOOR POLISHER stenosis. The remaining proximal c ircle of Armstrong vessels demonstrate no high grade stenosis or major branch occlu urmila. No saccular aneurysm is seen. CT perfusion:There is symmetrical cerebral b lood volume in both cerebral hemispheres. There is diminished cerebral blood wilmer w in the left occipital and mesial temporal lobe in the FLOOR POLISHER territory. There is corresponding prolonged time to peak and mean transit time. Although nonspecific in the absence of acute ischemia, these findings correlate to the left FLOOR POLISHER sten osis noted above. Other findings:Cervical spine [...] V2 segment stenoses. 4. Moderate left mid FLOOR POLISHER, mild to moderate left supraclinoid ICA, and other mild intracranial atherosclerosis stenoses. No red cliff of Armstrong m ajor branch occlusion seen. 5. Diminished cerebral perfusion parameters in the l eft FLOOR POLISHER territory which could correlate to the left FLOOR POLISHER stenosis. 6. Cervical sp ine degenerative changes. 7. Right lung postsurgical changes with nodular opacit ies, possibly scarring. As lung neoplasm cannot be excluded, chest CT follow up is suggested. Findings discussed with Dr. Parham (neurosurgery) at 1:30 PM Dariel d: Elsa Aguilar MDReport Verified Date/Time: 04/29/2017 14:04:03 Jv cabrales Location: [address] Neuro Reading Room , CAROTID, [id number] 14:04:00 Reason for exam:->Symptoms onset less than [...] cynthia stenoses. There is moderate left mid FLOOR POLISHER stenosis. The remaining proximal c ircle of Armstrong vessels demonstrate no high grade stenosis or major branch occlu urmila. No saccular aneurysm is seen. CT perfusion:There is symmetrical cerebral b lood volume in both cerebral hemispheres. There is diminished cerebral blood wilmer w in the left occipital and mesial temporal lobe in the FLOOR POLISHER territory. There is corresponding prolonged time to peak and mean transit time. Although nonspecific in the absence of acute ischemia, these findings correlate to the left FLOOR POLISHER sten osis noted above. Other findings:Cervical spine [...] V2 segment stenoses. 4. Moderate left mid FLOOR POLISHER, mild to moderate left supraclinoid ICA, and other mild intracranial atherosclerosis stenoses. No red cliff of Armstrong m ajor branch occlusion seen. 5. Diminished cerebral perfusion parameters in the l eft FLOOR POLISHER territory which could correlate to the left FLOOR POLISHER stenosis. 6. Cervical sp ine degenerative changes. 7. Right lung postsurgical changes with nodular opacit ies, possibly scarring. As lung neoplasm cannot be excluded, chest CT follow up is suggested. Findings discussed with Dr. Parham (neurosurgery) at 1:30 PM Dariel d: Elsa Aguilareport Verified Date/Time: 04/29/2017 14:04:03 Jv cabrales Location: [address] Neuro Reading Room , CEREBRAL PERFUSION [...] cynthia stenoses. There is moderate left mid FLOOR POLISHER stenosis. The remaining proximal c ircle of Armstrong vessels demonstrate no high grade stenosis or major branch occlu urmila. No saccular aneurysm is seen. CT perfusion:There is symmetrical cerebral b lood volume in both cerebral hemispheres. There is diminished cerebral blood wilmer w in the left occipital and mesial temporal lobe in the FLOOR POLISHER territory. There is corresponding prolonged time to peak and mean transit time. Although nonspecific in the absence of acute ischemia, these findings correlate to the left FLOOR POLISHER sten osis noted above. Other findings:Cervical spine [...] V2 segment stenoses. 4. Moderate left mid FLOOR POLISHER, mild to moderate left supraclinoid ICA, and other mild intracranial atherosclerosis stenoses. No red cliff of Armstrong m ajor branch occlusion seen. 5. Diminished cerebral perfusion parameters in the l eft FLOOR POLISHER territory which could correlate to the left FLOOR POLISHER stenosis. 6. Cervical sp ine degenerative changes. 7. Right lung postsurgical changes with nodular opacit ies, possibly scarring. As lung neoplasm cannot be excluded, chest CT follow up is suggested. Findings discussed with Dr. Parham (neurosurgery) at 1:30 PM Dariel d: Elsa [place]port Verified Date/Time: 04/29/2017 14:04:03 Jv cabrales Location: [address] Neuro Reading Room -GLUCOSE [id number] 13:52:00* Test Item Value Reference Range Interpretation Comments POC-GLUCOSE METER (BEAKER) (test code = 1538) 96 mg/dL 70-[address] [facility] [address] [facility] [address] [id number] 09:45:00* Test Item Value Reference Range Interpretation Comments PARTIAL THROMBOPLASTIN TIME (BEAKER) (test code = 760) 31.9 seconds 22.5-36.0 PROTHROMBIN TIME/[id number] 09:44:00* Test Item Value Reference Range Interpretation Comments PROTIME (BEAKER) (test code = 759) 14.3 seconds 11.7-14.7 INR (BEAKER) (test code = 370) 1.1 <=5.9 RECOMMENDED COUMADIN/WARFARIN INR THERAPY RANGESSTANDARD DOSE: 2.0 - 3.0 Inclu renetta: PROPHYLAXIS for venous thrombosis, systemic embolization; TREATMENT for noé ous thrombosis and/or pulmonary embolus.HIGH RISK: Target INR is 2.5-3.5 for pat ients with mechanical heart valves.BASIC METABOLIC [id number] 09:22:00* Test Item Value Reference Range Interpretation [...] IS NOT APPLICABLE FOR DIALYSIS PATIENTS. POCT-GLUCOSE [id number] 08:45:00* Test Item Value Reference Range Interpretation Comments POC-GLUCOSE METER (BEAKER) (test code = 1538) 226 mg/dL 70-[address] [facility] [address] [facility] [address] CBC W/PLT COUNT & AUTO [id number] 08:45:00* Test Item Value Reference Range Interpretation [...] code = 2801) 1 % 0-1 POCT-GLUCOSE [id number] 23:22:00* Test Item Value Reference Range Interpretation Comments POC-GLUCOSE METER (BEAKER) (test code = 1538) 391 mg/dL 70-[address] [facility] [address] [facility] [address] RAD, CHEST, 2 [id number] 22:23:00Reason for exam:->DIZZINESSFINAL REPORT Examination: Two view [...] Gallo Verified Date/Time: 04/28/2017 22:23:08 Reading Location: [address] Reading Room -GLUCOSE [id number] 21:40:00* Test Item Value Reference Range Interpretation Comments POC-GLUCOSE METER (BEAKER) (test code = 1538) 423 mg/dL 70-110 HH Notified AUBREE BIGGS/TESTED AT [facility] [address] [facility] [address] POCT-GLUCOSE [id number] 17:33:00* Test Item Value Reference Range Interpretation Comments POC-GLUCOSE METER (BEAKER) (test code = 1538) 261 mg/dL 70-[address] [facility] [address] [facility] [address] POCT-GLUCOSE [id number] 14:05:00* Test Item Value Reference Range Interpretation Comments POC-GLUCOSE METER (BEAKER) (test code = 1538) 393 mg/dL 70-[address] [facility] [address] [facility] [address] MR, SPINE, CERVICAL, WITHOUT [id number] 12:59:00FINAL REPORT MR cervical spine without contrast [...] MDReport Verified Date/Time: 04/28/2017 12:59:08 Reading Location: [address] Neuro Reading Room Electronically sig martina by: ELSA AGUILAR M.D. on 04/28/2017 12:59 PM POCT-GLUCOSE METER 2017-04-28 08:05:00* Test Item Value Reference Range Interpretation Comments POC-GLUCOSE METER (JAEL) (test code = 1538) 105 mg/dL 70-[address] [facility] [address] [facility] [address] CT, SPINE, CERVICAL, WO [id number] 20:12:00Reason for exam:->traumaWhat is the patient's sedation [...] Shayna Verma Date/Time: 04/27/2017 20:12:03 Reading Location: [facility] Radiology Reading Room C METABOLIC [id number] 14:31:00* Test Item Value Reference Range Interpretation [...] DIALYSIS PATIENTS. CBC W/PLT COUNT & AUTO [id number] 13:57:00* Test Item Value Reference Range Interpretation [...] 2801) 1 % 0-1 CT, BRAIN, WITHOUT [id number] 13:57:00Reason for exam:->DIZZINESSWhat is the patient's sedation [...] Aguilar Verified Date/Time: 04/27/2017 13:57:29 Reading Location: [facility] C013V Neuro Reading Room Electron ically signed by: ELSA AGUILAR M.D. on 04/27/2017 01:57 PM RAD, CHEST, 1 VIEW, NON [id number] 13:42:00Reason for exam:->coughShould this be performed at [...] by technique with sternotomy wires. Signed: Art Pierre Verified Date/Time: 04/27/2017 13:42:47 Reading Location: [facility] C013W Consult Reading Room
[2019-10-09] MEDS: INSULIN REGULAR, HUMAN 100 UNIT/1 ML 3ML VIAL SQ SCH (21:00)
[2019-10-09] MEDS: MEROPENEM 1GM 100 ML IV SCH (21:03)
[2019-10-09] MEDS: LEVALBUTEROL HCL SOLN NEBU 1.25 MG/3 ML NEB INH SCH (21:04)
[2019-10-09] MEDS ORDERED: BACLOFEN 10 MG TAB PO PRN (21:30)
[2019-10-09] MEDS: METOPROLOL TARTRATE 50 MG TAB PO SCH (21:30)
[2019-10-09] MEDS ORDERED: HYDRALAZINE HCL 25 MG TAB PO PRN (21:30)
[2019-10-09] MEDS ORDERED: NITROGLYCERIN 0.4 MG SUBL SL PRN (21:30)
[2019-10-09] MEDS ORDERED: BISACODYL 10 MG SUPP PR PRN (21:45)
[2019-10-09] MEDS ORDERED: PEG (High)/E-LYTE SOLN 4,000 ML BTL PO ONE (21:45)
[2019-10-09] MEDS ORDERED: MAGNESIUM HYDROXIDE 30 ML UDC PO PRN (21:45)
[2019-10-09 23:00] VITALS: BP 107/52
--- NOTE | 2019-10-09 23:00 | NUR ---
Patient received via stretcher from ER. AAO x 2. Patient had no complaints of pain. Respirations even and non-labored. Admission history obtained. Initial physical assessment performed. Suprapubic catheter draining pale yellow urine. Patient oriented to room , call light and plan of care. Safety measures in place. Call light within reach.
[2019-10-09 23:23] VITALS: BP 107/52
[2019-10-09] MEDS: TRAZODONE HCL 50 MG TAB PO SCH (23:57)
[2019-10-09] MEDS: SENNA-S TABLET PO SCH (23:57)
[2019-10-10] VITALS (9 sets, daily range): BP systolic 121–170; BP diastolic 55–77
[2019-10-10] MEDS: HYDROCODONE/APAP 10MG-325MG TAB PO PRN ×4 (00:10→20:04)
--- NOTE | 2019-10-10 00:30 | NUR ---
Patient declined signing "Disclosure and Consent" form for PICC line placement. Patient stated "I am not a guinea pig. They took my PICC line out last week. I am going to walk out of here. Get me the Claims Adjudicator". Ms. Graf (Housing Claims Adjudicator) spoke to the patient who calmed down afterwards.
--- NOTE | 2019-10-10 01:16 | NUR ---
Nevarez bag changed to leg bag per MD's orders.
[2019-10-10] MEDS: LEVALBUTEROL HCL SOLN NEBU 1.25 MG/3 ML NEB INH SCH ×4 (02:10→19:57)
[2019-10-10] MEDS: SODIUM CHLORIDE 0.9% 1000ML 1,000 ML IV SCH (05:52)
[2019-10-10] MEDS: MEROPENEM 1GM 100 ML IV SCH ×2 (05:58→18:55)
[2019-10-10 06:17] LABS: BASOPHILS % 0.7 % (0.0-1.0); EOSINOPHILS # (AUTO) 0.4 (0.0-0.4); EOSINOPHILS % 6.5 % (0.0-6.0); HEMATOCRIT 34.5 % (38.2-49.6); HEMOGLOBIN 11.1 g/dL (14.0-18.0); LYMPHOCYTES # (AUTO) 2.1 (1.0-3.2); LYMPHOCYTES % 34.7 % (18.0-39.1); MEAN CORPUSCULAR HEMOGLOBIN 29.4 pg (28-32); MEAN CORPUSCULAR HGB CONC 32.2 g/dL (31-35); MEAN CORPUSCULAR VOLUME 91.3 fL (81-99); MONOCYTES # (AUTO) 0.6 (0.2-0.8); NEUTROPHILS % 48.9 % (38.7-80.0); PLATELET COUNT 174 x10e3/uL (140-360); RED BLOOD COUNT 3.78 x10e6/uL (4.3-5.7); RED CELL DISTRIBUTION WIDTH 14.3 % (11.7-14.4)
[2019-10-10] MEDS ORDERED: PEG (High)/E-LYTE SOLN 4,000 ML BTL PO ONE (06:30)
[2019-10-10] MEDS: ALPRAZOLAM 1 MG TAB PO PRN ×2 (06:45→15:20)
[2019-10-10 06:49] LABS: ALANINE AMINOTRANSFERASE 12 IU/L (0-55); ALBUMIN 3.4 g/dL (3.5-5.0); ALBUMIN/GLOBULIN RATIO 1.1 (0.8-2.0); ALKALINE PHOSPHATASE 74 IU/L (40-150); ANION GAP 14.3 mmol/L (8-16); BLOOD UREA NITROGEN 22 mg/dL (7-26); BUN/CREATININE RATIO 28 (6-25); CALCIUM 8.9 mg/dL (8.4-10.2); CARBON DIOXIDE 22 mmol/L (22-29); CHLORIDE 107 mmol/L (98-107); EST GLOMERULAR FILTRATION RATE > 60 ML/MIN (60-); GLUCOSE 99 mg/dL (74-118); MAGNESIUM 1.8 MG/DL (1.3-2.1); POTASSIUM 4.3 mmol/L (3.5-5.1); SODIUM 139 mmol/L (136-145)
--- NOTE | 2019-10-10 07:00 | NUR ---
Shift report given to oncoming nurse.
[2019-10-10] MEDS: INSULIN REGULAR, HUMAN 100 UNIT/1 ML 3ML VIAL SQ SCH ×4 (07:30→21:00)
--- NOTE | 2019-10-10 07:36 | NUR ---
PATIENT IN BED WITH HEAD OF BED ELEVATED, NO DISTRESS NOTED. IV FLUID INFUSING ORDERED. BED IN LOWER POSITION, CALL LIGHT AT REACH.
--- NOTE | 2019-10-10 08:29 | Diagnostic Imaging Report ---
Examination: Single AP view of the chest. COMPARISON: 10/09/2019 INDICATION: Fever, COPD DISCUSSION: Persistent right hemidiaphragmatic elevation with volume loss of the right lung and postsurgical changes of the right upper lung zone. No new airspace consolidation or pleural effusion. Calcified right pleural plaque described on the comparison CT is not conspicuous by plain radiography. Stable cardiomediastinal contour with post surgical changes of median sternotomy and tortuosity of the thoracic aorta. No acute osseous abnormality. IMPRESSION: Stable appearance of the chest relative to 10/09/2019, with postsurgical changes and volume loss of the right lung, resulting right hemidiaphragmatic elevation, and postsurgical changes of median sternotomy. Signed by: Dr. Austyn Zamudio M.D. on 10/10/2019 8:26 AM
[2019-10-10] MEDS ORDERED: FAMOTIDINE 20 MG/2 ML VIAL IV SCH (09:00)
--- NOTE | 2019-10-10 09:08 | NUR ---
WENT TO SPEAK WITH PT, SOON I WALKED IN ROOM, HE STATED "I AM NOT GOING TO NO [facility], ILL GO LIVE UNDER A BRIDGE" i LET HIM KNOW I WOULD BE CALLING HIS AND HE SAID HE DOESN'T CARE, TOLD ME TO LEAVE. I CALL HOME NUMBER [phone] NO ANSWER AND LEFT MESSAGE FOR RETURN CALL. UPDATED POKER ROOM MANAGER WHOM KNOWS THIS PATIENT AND FAMILY WELL.
[2019-10-10] MEDS: GABAPENTIN 300 MG CAP PO SCH ×3 (09:45→22:55)
[2019-10-10] MEDS: FINASTERIDE 5 MG TAB PO SCH (09:45)
[2019-10-10] MEDS: SENNA-S TABLET PO SCH ×2 (09:45→17:20)
[2019-10-10] MEDS: TAMSULOSIN HCL 0.4 MG CAP PO SCH (09:45)
[2019-10-10] MEDS: METOPROLOL TARTRATE 50 MG TAB PO SCH ×2 (09:46→17:20)
--- NOTE | 2019-10-10 11:00 | NUR ---
PATIENT AMBULATED IN HALLWAY WITH PHYSICAL THERAPY, NO COMPLAIN VOICED. WILL CLOSELY MONITOR.
--- NOTE | 2019-10-10 11:14 | NUR ---
SPOKE WITH DAUGHTER IN [employer] [place] [phone], SHE STATES HE GOES TO FOR PAIN MANAGEMENT AND SAL FOR OTHER MEDS, BUT STATES NOT TAKING ANYTHING BUT HIS PAIN MEDICATION AND XANAX. SHE STATES SHE IS P[facility] THE PATIENTS [facility] AND WANTS TO KNOW IF WE CAN PUT THEM TOGETHER, HE MAY STAY SINCE HIS BROTHER IS THERE. ITS [facility] [phone] SHE GOES ON TO STATE THAT SHE WILL HAVE HER TALK TO HIS DAD TO GET HIM TO GO. I WILL CALL FACILITY TO SEE IF THEY RE IN NETWORK AND SEE IF ABLE TO GET SKILLED.
--- NOTE | 2019-10-10 11:46 | NUR ---
CALLED NUMBER AND IT IS TO [facility], BROTHER IS THERE BUT BEING TRANSFERRED TO [facility] WHICH IS A NEW FACILITY. CALLED THEM AT [phone] SPOKE WITH ARSLAN IN ADMISSIONS AND HE WAS ABLE TO VERIFY [facility] AND THE NUMBER TO FAX CLINICALS IS [phone]. HE WENT ON TO STATE THEY ARE A NEW FACILITY AND HVE PLENTY OF BEDS. WILL FAX CLINICALS WHEN I GET ALL INFORMATION TOGETHER.
--- NOTE | 2019-10-10 12:42 | NUR ---
SPOKE WITH PT AND HE IS OKAY WITH GOING TO WHERE HIS BROTHER IS GOING. WILL FAX CLINICALS, WAITING ON PT NOTE TO UPLOAD, COMPLETING PASRR AND RTF
--- NOTE | 2019-10-10 15:56 | NUR ---
PATIENT OUT OF BED TO CHAIR TALKING TO VISITING. JULIEN CATHETER EMPTIED. CALL LIGHT AT REACH.
[2019-10-10] MEDS: ATORVASTATIN 40 MG TAB PO SCH (22:55)
[2019-10-10] MEDS: TRAZODONE HCL 50 MG TAB PO SCH (23:00)
[2019-10-11] VITALS (7 sets, daily range): BP systolic 130–144; BP diastolic 51–59
[2019-10-11] MEDS: LEVALBUTEROL HCL SOLN NEBU 1.25 MG/3 ML NEB INH SCH ×4 (01:05→20:00)
[2019-10-11] MEDS: SODIUM CHLORIDE 0.9% 1000ML 1,000 ML IV SCH ×3 (02:09→20:53)
[2019-10-11] MEDS: HYDROCODONE/APAP 10MG-325MG TAB PO PRN ×4 (05:41→18:30)
[2019-10-11] MEDS: MEROPENEM 1GM 100 ML IV SCH ×2 (06:00→17:34)
--- NOTE | 2019-10-11 07:00 | NUR ---
Walking rounds done. Patient resting comfortably. Shift report given to oncoming nurse regarding patient's status.
[2019-10-11] MEDS: INSULIN REGULAR, HUMAN 100 UNIT/1 ML 3ML VIAL SQ SCH ×4 (07:30→21:00)
[2019-10-11] MEDS: TAMSULOSIN HCL 0.4 MG CAP PO SCH (08:56)
[2019-10-11] MEDS: FINASTERIDE 5 MG TAB PO SCH (08:56)
[2019-10-11] MEDS: SENNA-S TABLET PO SCH ×2 (08:56→17:34)
[2019-10-11] MEDS: METOPROLOL TARTRATE 50 MG TAB PO SCH ×2 (08:56→17:34)
[2019-10-11] MEDS: GABAPENTIN 300 MG CAP PO SCH ×3 (08:56→20:53)
--- NOTE | 2019-10-11 09:56 | History and Physical ---
CHIEF COMPLAINT: Generalized weakness and fall, possible confusion. HISTORY OF PRESENT ILLNESS: The patient is a 74-year-old male, long history of chronic pain, lower back pain with multiple surgeries in the past. He is on [place] for pain control. He just recently had a suprapubic catheter placed because of his urinary retention, where the patient because of his dementia, forgets to self-catheterize himself and even when he did it, he did not well enough to obtain urine and the he get urinary retention and recurrent infection. The patient's spouse also lives with the patient, but she has significant debility where she is unable to care for the patient as well. The patient is recurrently admitted to the hospital because of multiple issues. At this time, the patient just discharged from the hospital and then came back again within a week or so with the same issue, where he was unable to get the care that he need at home. Multiple times in the past, I advised the patient for placement. The patient absolutely refused. The patient came in this time. He is comfortable at this time. His lab work otherwise unremarkable. BUN and creatinine are 28 and 0.9, glucose 151. Liver enzyme is normal. WBC 7.4, hemoglobin and hematocrit are 12 and 36.6 respectively. The patient is slightly dehydrated, but otherwise he is stable. Urinalysis showed wbc's none, rare yeast, and some cloudy urine. Coronavirus PCR was not detected. His abdominal and pelvic CT scan did not reveal any significant changes. There was a suprapubic catheter. There is compression fracture at L1. There is extensive atherosclerotic calcification of abdominal aorta. The patient has previous history of lower extremity with bypass surgery. The patient is otherwise stable at this time. Significant is that the patient had extensive stool throughout the colon, suggest obstipation versus constipation since the patient is on opioids for his pain control. PAST MEDICAL HISTORY: 1. Severe peripheral vascular disease. 2. Hypertension. 3. Anxiety disorder. 4. Chronic opioid dependency. 5. Panic disorder. 6. Chronic lower back pain. 7. Hypertension. 8. COPD. The patient is still smoking. 9. Urinary retention secondary to neurogenic urinary bladder, status post suprapubic catheter placement. 10. Chronic anemia secondary to chronic medical disease. 11. Coronary artery disease with previous PCI. 12. History of lung cancer with right lower lobe lobectomy in January 2006. 13. Diabetes type 2, on oral hypoglycemic medication. 14. Cataract with cataract surgery. 15. Coronary artery disease with previous bypass graft surgery years ago. 16. Left lower extremity vascular intervention. SOCIAL HISTORY: Again, the patient lives at home with his spouse. He does not have any other one for care for the patient except for his debilitated style as well. The patient is a smoker. No alcohol. ALLERGIES: FENTANYL AND LEVAQUIN. HOME MEDICATIONS: List will be available for review. REVIEW OF SYSTEMS: The patient seems comfortable. He is not in significant pain now. PHYSICAL EXAMINATION: VITAL SIGNS: Temperature is 98, blood pressure 120/73, pulse rate 63, respirations 18. GENERAL: The patient is not in acute distress, awake. HEENT: Normocephalic and atraumatic. Anicteric. NECK: Supple grossly. PULMONARY: Diminished breath sounds with minimal rhonchi. CARDIOVASCULAR: S1, S2. Regular rate and rhythm. ABDOMEN: Soft. Suprapubic catheter in place. EXTREMITIES: No gross cyanosis or edema. NEUROLOGIC: There is no gross focal deficit. LABORATORY DATA: Sodium is 137, potassium 5.1, chloride 101, bicarb 25, BUN is 28, creatinine 0.9, and glucose is 151. Liver enzyme; AST 23, ALT 15, magnesium is 1.8. WBC is 6, hemoglobin 11, hematocrit 34.5, and platelet is 174. IMPRESSION: 1. Chronic medical debility. 2. Medical deconditioning. 3. Suprapubic catheter seemed to be functioning. 4. Multiple chronic medical problems. 5. Disposition. The patient will need a skilled facility with possible placement since the patient's spouse is unable to care for this chronically ill patient at home. PLAN: corrections caseworker consultation. Skew evaluation first, maybe placement after the skew. Continue with current medication, home medication, pain control. Nebulizer treatment. [place] catheter care. We will monitor the patient closely at this time. MD BYRON David/CHARITY /[id number]
[2019-10-11] MEDS: ALPRAZOLAM 1 MG TAB PO PRN ×2 (10:38→15:20)
--- NOTE | 2019-10-11 10:48 | NUR ---
FAXED ALL CLINICALS TO [facility] [phone]
[2019-10-11] MEDS ORDERED: ONDANSETRON HCL 4 MG ORAL DISINTEGRATING TAB PO PRN (14:15)
[2019-10-11] MEDS: IPRATROPIUM BROMIDE 0.02% 2.5 ML NEB NEB PRN (20:00)
[2019-10-11] MEDS: ATORVASTATIN 40 MG TAB PO SCH (20:53)
[2019-10-11] MEDS: TRAZODONE HCL 50 MG TAB PO SCH (20:53)
[2019-10-12] MEDS: LEVALBUTEROL HCL SOLN NEBU 1.25 MG/3 ML NEB INH SCH ×4 (01:00→20:00)
[2019-10-12] MEDS: HYDROCODONE/APAP 10MG-325MG TAB PO PRN ×5 (01:51→20:50)
[2019-10-12 05:19] VITALS: BP 114/65
[2019-10-12] MEDS: ALPRAZOLAM 1 MG TAB PO PRN ×3 (06:00→20:50)
[2019-10-12] MEDS: MEROPENEM 1GM 100 ML IV SCH ×2 (06:02→18:04)
--- NOTE | 2019-10-12 07:00 | NUR ---
received bedside report. pt is alert sitting up in bed and is agitated. pt stated that he did not sleep last night and expressed his want to smoke a cigarette. reassured pt that RN will ask physician about a nicotine patch.
--- NOTE | 2019-10-12 07:00 | NUR ---
Patient resting comfortably. Bed-side report given to oncoming nurse.
[2019-10-12] MEDS: INSULIN REGULAR, HUMAN 100 UNIT/1 ML 3ML VIAL SQ SCH ×4 (07:30→21:00)
[2019-10-12 08:14] VITALS: BP 155/62
[2019-10-12 08:26] VITALS: BP 155/62
--- NOTE | 2019-10-12 08:34 | NUR ---
SPOKE WITH BUILDING REP STILL PENDING AUTH FOR PLACEMENT
[2019-10-12] MEDS: METOPROLOL TARTRATE 50 MG TAB PO SCH ×2 (08:45→16:45)
[2019-10-12] MEDS: FINASTERIDE 5 MG TAB PO SCH (08:45)
[2019-10-12] MEDS: SODIUM CHLORIDE 0.9% 1000ML 1,000 ML IV SCH (08:45)
[2019-10-12] MEDS: GABAPENTIN 300 MG CAP PO SCH ×3 (08:45→20:50)
[2019-10-12] MEDS: SENNA-S TABLET PO SCH ×2 (08:45→16:45)
[2019-10-12] MEDS: TAMSULOSIN HCL 0.4 MG CAP PO SCH (08:45)
--- NOTE | 2019-10-12 11:10 | NUR ---
ASSESSMENT: Spiritual distress Pt critical of others as a means of coping with his own limitations. Pt identifies as Mu-Ism. Pt states his is also struggling with physical limitations. Pt states his daughter and grandson (34yo) lives with him and his . Pt wants to return home in spite of his limitations. Intervention: Provided unhurried pastoral presence and empathic listening. Facilitated illness review and storytelling. Provided prayer and information on how to reach volunteer patient representative, if needed. Outcome: Pt expressed appreciation for visit and support. Will follow as able. ZURDO HOLT Psychiatric Therapist Spiritual Care Department O: [phone]
[2019-10-12 12:00] VITALS: BP 177/89
--- NOTE | 2019-10-12 13:30 | NUR ---
CALLED [employer] TO GET UPDATE, WAS TOLD INSURANCE HAS A GLITCH IN SYSTEM, SPOKE WITH DR ANAND ABOUT CALLING SOMEONE TO SEE ABOUT GETTING APPROVAL SANS GLITCH. THEY ARE CHECKING INTO IT AND WILL GET BACK TO ME.
[2019-10-12 16:00] VITALS: BP 147/71
--- NOTE | 2019-10-12 19:15 | NUR ---
Completed bedside nursing shift report with morning nurse. Pt alert and oriented to name, HOB 60 degrees. Pt denies pain at this time. Call light within reach. Call light within reach. Bed low and locked.
[2019-10-12 20:00] VITALS: BP 168/77
[2019-10-12] MEDS: IPRATROPIUM BROMIDE 0.02% 2.5 ML NEB NEB PRN (20:00)
[2019-10-12] MEDS: ATORVASTATIN 40 MG TAB PO SCH (20:50)
[2019-10-12] MEDS: TRAZODONE HCL 50 MG TAB PO SCH (20:50)
[2019-10-13] VITALS (9 sets, daily range): BP systolic 118–168; BP diastolic 57–77
[2019-10-13] MEDS: LEVALBUTEROL HCL SOLN NEBU 1.25 MG/3 ML NEB INH SCH ×4 (01:00→20:45)
[2019-10-13] MEDS: MEROPENEM 1GM 100 ML IV SCH ×2 (05:36→18:03)
--- NOTE | 2019-10-13 07:00 | NUR ---
BS ROUNDS COMPLETED WITH MORNING NURSE, PT NO ACUTE DISTRESS.
[2019-10-13] MEDS: INSULIN REGULAR, HUMAN 100 UNIT/1 ML 3ML VIAL SQ SCH ×4 (07:30→20:52)
--- NOTE | 2019-10-13 07:33 | NUR ---
PATIENT IN BED RESTING WITH NO S/S OF DISTRESS. SUPRAPUBIC CATHETER DRAINING CLEAR YELLOW URINE. BED IN LOWER POSITION, CALL LIGHT AT REACH.
[2019-10-13] MEDS: TAMSULOSIN HCL 0.4 MG CAP PO SCH (09:13)
[2019-10-13] MEDS: FINASTERIDE 5 MG TAB PO SCH (09:13)
[2019-10-13] MEDS: METOPROLOL TARTRATE 50 MG TAB PO SCH ×2 (09:13→17:43)
[2019-10-13] MEDS: SENNA-S TABLET PO SCH ×2 (09:13→17:43)
[2019-10-13] MEDS: GABAPENTIN 300 MG CAP PO SCH ×3 (09:13→20:59)
[2019-10-13] MEDS: ALPRAZOLAM 1 MG TAB PO PRN ×2 (09:35→18:37)
[2019-10-13] MEDS: HYDROCODONE/APAP 10MG-325MG TAB PO PRN ×3 (09:35→20:59)
--- NOTE | 2019-10-13 11:22 | NUR ---
PATIENT ASSISTED TO THE RESTROOM BY . BACK IN BED WITH CALL LIGHT AT REACH.
[2019-10-13] MEDS: SODIUM CHLORIDE 0.9% 1000ML 1,000 ML IV SCH (12:10)
--- NOTE | 2019-10-13 16:18 | NUR ---
PATIENT ASSISTED WITH SHOWER BY HIS , SITTING AT BED SIDE. CALL LIGHT AT REACH.
--- NOTE | 2019-10-13 19:10 | NUR ---
Completed bedside nursing shift report with morning nurse. Pt alert and oriented to name, lying in bed HOB 30 degrees. No s/s of pain at this time. Call light within reach. Bed low and locked. Will continue to monitor.
[2019-10-13] MEDS: IPRATROPIUM BROMIDE 0.02% 2.5 ML NEB NEB PRN (20:45)
[2019-10-13] MEDS: ATORVASTATIN 40 MG TAB PO SCH (20:59)
[2019-10-13] MEDS: TRAZODONE HCL 50 MG TAB PO SCH (20:59)
[2019-10-14] VITALS (8 sets, daily range): BP systolic 130–150; BP diastolic 62–77
[2019-10-14] MEDS: LEVALBUTEROL HCL SOLN NEBU 1.25 MG/3 ML NEB INH SCH ×4 (01:00→19:38)
[2019-10-14] MEDS: SODIUM CHLORIDE 0.9% 1000ML 1,000 ML IV SCH (04:55)
[2019-10-14] MEDS: HYDROCODONE/APAP 10MG-325MG TAB PO PRN ×4 (05:40→20:43)
[2019-10-14] MEDS: MEROPENEM 1GM 100 ML IV SCH (06:00)
--- NOTE | 2019-10-14 07:22 | NUR ---
PATIENT IN BED RESTING WITH EYES CLOSED, NO DISTRESS NOTED. SUPRAPUBIC CATHETER DRAINING CLEAR YELLOW URINE. BED IN LOWER POSITION, CALL LIGHT AT REACH.
[2019-10-14] MEDS: INSULIN REGULAR, HUMAN 100 UNIT/1 ML 3ML VIAL SQ SCH ×4 (07:30→20:36)
[2019-10-14] MEDS: TAMSULOSIN HCL 0.4 MG CAP PO SCH (09:11)
[2019-10-14] MEDS: METOPROLOL TARTRATE 50 MG TAB PO SCH ×2 (09:11→17:32)
[2019-10-14] MEDS: SENNA-S TABLET PO SCH ×2 (09:11→17:32)
[2019-10-14] MEDS: GABAPENTIN 300 MG CAP PO SCH ×3 (09:11→20:43)
[2019-10-14] MEDS: FINASTERIDE 5 MG TAB PO SCH (09:11)
[2019-10-14] MEDS: ALPRAZOLAM 1 MG TAB PO PRN (10:00)
--- NOTE | 2019-10-14 10:43 | NUR ---
PATIENT IS STATING THAT HE WANTS TO GO HOME, BUT IS PENDING SNF PLACEMENT. MD IN AT THIS TIME. CALLED AND NOTIFIED, SHE SAID THAT WHENEVER HE COMES HOME, HE BECOMES WEAKER AND WEAKER; SHE WANTS HIM TO GO TO REHAB AND GET STRONGER BEFORE COMING HOME. PATIENT AWARE OF THE PLAN OF CARE. SITTING AT BED SIDE TALKING ON THE PHONE. WILL CLOSELY MONITOR.
[2019-10-14] MEDS ORDERED: CEFUROXIME AXETIL 250 MG TAB PO SCH (10:45)
--- NOTE | 2019-10-14 12:05 | NUR ---
PATIENT SITTING AT BED SIDE EATING LUNCH, CALL LIGHT AT REACH.
[2019-10-14] MEDS: CEFUROXIME AXETIL 250 MG TAB PO SCH ×2 (12:10→17:32)
--- NOTE | 2019-10-14 15:59 | NUR ---
PATIENT ASSISTED TO THE RESTROOM AND BACK TO CHAIR. CALL LIGHT AT REACH.
--- NOTE | 2019-10-14 18:59 | NUR ---
sbar report received from abdi rn patient stating he wishes to leave, notified, patient refusing IV, okay with MD, patient pending SNF placement, prn pain medication, suprapubic nolan in place placed prior to admission, patient made aware that he will have to sign AMA if he wishes to leave
[2019-10-14] MEDS: TRAZODONE HCL 50 MG TAB PO SCH (20:43)
[2019-10-14] MEDS: ATORVASTATIN 40 MG TAB PO SCH (20:43)
[2019-10-15] VITALS (10 sets, daily range): BP systolic 133–159; BP diastolic 60–68
[2019-10-15] MEDS: LEVALBUTEROL HCL SOLN NEBU 1.25 MG/3 ML NEB INH SCH ×3 (00:35→13:00)
[2019-10-15] MEDS: HYDROCODONE/APAP 10MG-325MG TAB PO PRN ×2 (06:36→11:20)
--- NOTE | 2019-10-15 07:20 | NUR ---
PATIENT IN BED WITH HEAD OF BED ELEVATED RECEIVING NEB TREATMENT, NO DISTRESS NOTED. BED IN LOWER POSITION, CALL LIGHT AT REACH.
[2019-10-15] MEDS: INSULIN REGULAR, HUMAN 100 UNIT/1 ML 3ML VIAL SQ SCH ×2 (07:30→11:30)
[2019-10-15] MEDS: CEFUROXIME AXETIL 250 MG TAB PO SCH (09:22)
[2019-10-15] MEDS: TAMSULOSIN HCL 0.4 MG CAP PO SCH (09:22)
[2019-10-15] MEDS: SENNA-S TABLET PO SCH (09:24)
[2019-10-15] MEDS: FINASTERIDE 5 MG TAB PO SCH (09:24)
[2019-10-15] MEDS: GABAPENTIN 300 MG CAP PO SCH ×2 (09:24→15:23)
[2019-10-15] MEDS: METOPROLOL TARTRATE 50 MG TAB PO SCH (09:24)
[2019-10-15] MEDS: ALPRAZOLAM 1 MG TAB PO PRN (11:20)
--- NOTE | 2019-10-15 14:32 | NUR ---
PATIENT'S IN AT THIS TIME AND REQUESTED TO TAKE PATIENT HOME INSTEAD OF REHAB. MD NOTIFIED AND NEW ORDER RECEIVED TO DISCHARGE PATIENT.
[2019-10-15] MEDS ORDERED: CEFUROXIME250 MG PO (14:35)
--- NOTE | 2019-10-15 15:50 | NUR ---
PATIENT DISCHARGED HOME. DISCHARGE INSTRUCTIONS, PRESCRIPTION, AND FOLLOW UP GIVEN TO PATIENT AND , THEY VERBALIZED UNDERSTANDING. PATIENT HAD NO IV ACCESS. LEG BAG OFFERED, BUT PATIENT REFUSED. ALL PERSONAL ITEMS TAKEN WITH PATIENT. LEFT UNIT PER WHEEL CHAIR TO FRONT LOBBY IN STABLE CONDITION.
== END 2019-10-15 15:40 | DRG 699 ==
LOC: ER 12:27 → ERHOLD 17:24 → MED/SURG3 22:24
PROVIDERS: ADMIT Internal Medicine; ATTEND Internal Medicine
DX: T83.518A Infection and inflammatory reaction due to other urinary catheter, initial encounter (principal); N39.0 Urinary tract infection, site not specified; G89.29 Other chronic pain; R33.9 Retention of urine, unspecified; J44.9 Chronic obstructive pulmonary disease, unspecified; F03.90 Unspecified dementia, unspecified severity, without behavioral disturbance, psychotic disturbance, mood disturbance, and anxiety; D63.8 Anemia in other chronic diseases classified elsewhere; I25.10 Atherosclerotic heart disease of native coronary artery without angina pectoris; Z95.1 Presence of aortocoronary bypass graft; E11.9 Type 2 diabetes mellitus without complications; F41.0 Panic disorder [episodic paroxysmal anxiety]; F41.9 Anxiety disorder, unspecified; E11.51 Type 2 diabetes mellitus with diabetic peripheral angiopathy without gangrene; Z11.59 Encounter for screening for other viral diseases; Z86.718 Personal history of other venous thrombosis and embolism; Z79.01 Long term (current) use of anticoagulants; Z91.14 Patient's other noncompliance with medication regimen
CPT/HCPCS: 36415; 71045; 74177; 80053; 81001; 82550; 82553; 82948; 83605; 83735; 83880; 84484; 85025; 85610; 85730; 87040; 87086; 87186; 87635; 93005; 94640; 96361; 96372; 97139; 99285; J0696; J1817; J2270; J2405; J7030; Q9967